=== PATIENT | female | born 1945 | race Caucasian/White ===

== ENCOUNTER 2019-07-03 15:06 | Outpatient (CLI) | payer MEDICARE, SELFPAY ==
--- NOTE | 2019-07-03 15:37 | MM_ITS ---
WS: [id number] LEFT DIGITAL MAMMOGRAPHY WITH CAD CLINICAL INFORMATION: LT FIBROCYSTIC BREAST CHANGES HISTORY: Six-month follow-up COMPARISON: TECHNIQUE: 7 views of the left breast were obtained. FINDINGS: The left breast is composed of heterogeneous fibroglandular density tissue, which can limit the detec tion of small underlying mass lesions. Vascular calcification. Lucent centered calcifications. Stable punctate and clustered calcifications. Persistent asymmetric breast tissue upper outer quadrant left breast. New palpable marker upper outer left breast. No underlying mammographic abnormalities. Patient report s lump x2 months. Ultrasound is pending. ULTRASOUND BREAST LEFT TECHNIQUE: Ultrasound left breast focused area of concern. CLINICAL INFORMATION: LT FIBROCYSTIC BREAST CHANGES COMPARISON: FINDINGS: Ultrasound left breast at the 12:00, 1:00, and 2:00 positions. Patient reports new palpable lump at t he 1:00 position. No evidence of pathologic mass or lesion in the area of palpable concern. No lesion s to target for biopsy of this area. At the 12 and 2:00 position again seen are small subcentimeter cystic lesions which have a benign priya earance. No evidence of pathologic mass or lesion target for biopsy. [facility]. MM/[place] [id number] IMPRESSION: BI-RADS: 2-Benign FOLLOW UP: 1 Year Follow-up Recommend return to annual screening mammography. Additional management of the palpable abnormality should be based on clinical g rounds.
== END 2019-07-03 15:07 | disposition home or self-care (01) ==
PROVIDERS: Family Provider Family Medicine; PCP Family Medicine; Visit Provider Nurse Practitioner Family
DX: N60.12 Diffuse cystic mastopathy of left breast (principal)
CPT/HCPCS: 76642; 77065

== ENCOUNTER → 2019-09-23 10:05 | Outpatient (BNVA) | payer MEDICARE, SELFPAY | PROVIDERS: Family Provider Family Medicine; PCP Family Medicine; Visit Provider Family Medicine | DX: E78.00 Pure hypercholesterolemia, unspecified (principal); E11.9 Type 2 diabetes mellitus without complications; I10 Essential (primary) hypertension; I87.2 Venous insufficiency (chronic) (peripheral); E11.8 Type 2 diabetes mellitus with unspecified complications | CPT/HCPCS: 80053; 80061; 83036; 85025 ==

== ENCOUNTER 2020-01-04 17:51 | Observation (INO) | payer MEDICARE, SELFPAY ==
[2020-01-04] VITALS (7 sets, daily range): BP systolic 167–226; BP diastolic 88–116; PULSE 75–94; RESP 18–20; TEMP 36.8–37; O2SAT 93–98; BMI 37.5
--- NOTE | 2020-01-04 18:04 | XRR_ITS ---
PROCEDURE INFORMATION: Exam: XR Chest, 1 View Exam date and time: 01/04/2020 6:05 PM Age: 74 years old Clinical indication: Other: CVA TECHNIQUE: Imaging protocol: XR of the chest Views: 1 view. COMPARISON: CR Chest 1 [place] [id number] 02/11/2019 6:44 AM FINDINGS: Lungs: Unremarkable. No consolidation. Pleural space: Unremarkable. No pleural effusion. No pneumothorax. Heart/Mediastinum: Unremarkable. No cardiomegaly. Bones/joints: Unremarkable. XR/XR chest 1V portable [id number] IMPRESSION: No acute findings.
--- NOTE | 2020-01-04 18:04 | CTR_ITS ---
PROCEDURE INFORMATION: Exam: CT Head Without Contrast Exam date and time: 01/04/2020 6:20 PM Age: 74 years old Clinical indication: Numbness / parasthesia and speech disturbance; Left; Slurred speech; Additional info: CVA TECHNIQUE: Imaging protocol: Computed tomography of the head without contrast. Radiation optimization: All CT scans at this facility use at least one of these dose optimization techniques: automated exposure control; mA and/or kV adjustment per patient size (includes targeted exams where dose is matched to clinical indication); or iterative reconstruction. COMPARISON: CT head wo con* [id number] 02/08/2019 6:03 AM RADIATION DOSE METRICS: Total DLP (mGy-cm): 763.68 FINDINGS: Brain: There is mild cortical atrophy. There is no intracranial mass, hemorrhage or edema. There is small focal calcification in the mid esther not changed from previous. Ventricles: Normal. No ventriculomegaly. Bones/joints: Unremarkable. No acute fracture. Sinuses: Visualized sinuses are unremarkable. No fluid levels. Mastoid air cells: Visualized mastoid air cells are well aerated. Vasculature: There are atherosclerotic changes in the cavernous carotid arteries on both sides. Soft tissues: Unremarkable. CT/CT head wo con* [id number] IMPRESSION: Mild atrophy. No acute intracranial finding. Radiation Dose CTDIVOL = (mGy): DLP = 763.68 (mGy-cm)
--- NOTE | 2020-01-04 18:05 | ECG_ITS ---
[facility] Test Date: 2020-01-04 Pat Name: Iris Rockwell Department: Room: Gender: Female Rehabilitation Coordinator: : 1945 Requested By: Devin Alfonso Order Number: [id number] Coco MD: John Fields M.D. Measurements Intervals [place] Rate: 76 P: 64 VT: 207 QRS: 64 QRSD: 104 T: 82 QT: 412 QTc: 463 Interpretive Statements SINUS RHYTHM MODERATE ST DEPRESSION [0.05+ mV ST DEPRESSION] Compared to ECG 02/08/2019 05:08:18 ST (T wave) deviation now present Sinus bradycardia no longer present First degree AV block no longer present Prolonged QT interval no longer present Electronically Signed On 01-05-2020 8:04:27 CDT by John Fields M.D. [id number]
--- NOTE | 2020-01-04 18:07 | ED_ITS ---
HPI - Neuro Symptoms/Deficit General: Chief Complaint: Neuro Symptoms/Deficit Stated Complaint: STROKE LIKE SYMPTOMS Time Seen by Provider: 01/04/20 17:58 Source: patient and EMS Mode of arrival: EMS Limitations: no limitations History of Present Illness: HPI Narrative: 74-year-old female who states that last night she started having numbness to her left hand and woke up with more numbness to her left hand since resolved. States that roughly 1 hour ago she started having garbled speech and could not get anything out. She states this resolved about 30 minutes ago. She is continued to have left hand numbness throughout the day. She denies any headache. She denies any difficulty walking. Patient is currently having no focal deficits and I am able to understand her clearly. Associated symptoms: Deny chest pain, nausea or vomiting Review of Systems Const: Denies: fever(s), chills, body aches or change in appetite Eyes: Denies: blurry vision or eye discomfort ENMT: Denies: throat pain or dental pain Card: Denies: chest pain Resp: Denies: dyspnea GI: Denies: abdominal pain, nausea, vomiting or diarrhea : Denies: dysuria Musc: Denies: neck pain or back pain Skin/Breast: Denies: rash Neuro: Reports: weakness in extremities Psych: Denies: depression Hilario/Lymph: Denies: easy bruising All/Imm: Denies: urticaria PFSH ED PFSH: Medical History (Updated 01/04/20 @ 22:15 by Devin Alfonso MD) Chronic kidney disease, stage 3 Depression Diabetes Diabetic neuropathy Diastolic CHF GERD (gastroesophageal reflux disease) Hypercholesteremia Hypertension ANA (obstructive sleep apnea) Venous insufficiency (chronic) (peripheral) Surgical History (Updated 01/04/20 @ 22:14 by Irina Moss MD) 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 History of appendectomy History of bladder suspension procedure History of cataract surgery History of cholecystectomy History of drainage of abscess left vulvar/perineal area History of hernia repair History of surgery on arm left arm, due to extravasation History of total hysterectomy Social History Smoking and tobacco status: never smoked Alcohol intake: never Physical Exam Const: COMMON NORMALS: no acute distress, patient oriented x3 and healthy appearing HENMT: COMMON NORMALS: normocephalic and atraumatic HEAD & SCALP: normocephalic and atraumatic Eye: COMMON NORMALS: Equal, round and reactive pupils present and EOMs intact bilaterally PUPIL: Yes Equal, round and reactive pupils present Neck/C-Spine: COMMON NORMALS: full ROM and supple Chest: COMMONS NORMALS: normal inspection of the chest and normal palpation of entire chest wall Resp: COMMON NORMALS: normal respiratory effort, No retractions, No use of accessory muscles and clear to auscultation bilaterally AUSCULTATION: clear to auscultation bilaterally Cardio: COMMON NORMALS: regular rate, regular rhythm and No murmurs present (Cardio) RATE: regular rate RHYTHM: regular rhythm GI: COMMON NORMALS: Normal to inspection, nondistended, normoactive bowel so unds present, Soft to palpation, non-tender and no masses PALPATION: Yes Soft to palpation Extremity: COMMON NORMALS: normal to inspection and full ROM Neuro: COMMON NORMALS: patient oriented x3, moves all extremities and no focal motor deficits Psych: COMMON NORMALS: mental status grossly normal, Normal thought process present and cooperative THOUGHT PROCESS: Normal thought process present Skin: COMMON NORMALS: no rashes or lesions noted and no wounds GENERAL SKIN EXAM: no rashes or lesions noted Course Vital Signs: Vital signs: Vital Signs Temperature 98.3 F 01/04/20 17:53 Pulse Rate 76 01/04/20 18:33 Respiratory Rate 20 H 01/04/20 18:33 Blood Pressure 226/116 01/04/20 21:25 Pulse Oximetry 97 01/04/20 21:25 MDM - Neuro Symptoms/Deficit MDM Narrative: Medical decision making narrative: Patient presents here with TIA along with hyperglycemia and hypertension. Patient's blood sugar here is improving along with her blood pressure. Her neuro symptoms of completely resolved and she has an NIH of 0. She is not a TPA candidate due to resolved symptoms. Her initial troponin was elevated but repeat had a decrease. She had no chest pain here. I spoke to hospitalist will admit for her high blood press ure along with TIA and hyperglycemia. Will admit her to the cardiac stepdown unit. Lab Data: Labs: Lab Results 01/04/20 01/04/20 01/04/20 Range/Units 18:06 18:06 18:06 WBC 9.9 (4.0-10.0) 10^3/ uL RBC 4.27 (4.1-5.3) 10^6/u L Hgb 11.7 (11.5-15.3) g/dL Hct 37.3 (37.0-47.0) % MCV 87.4 (81-99) fL MCH 27.4 L (28.0-34.0) pg MCHC 31.4 (30.0-36.0) g/dL RDW 14.6 (12.1-15.1) % Plt Count 379 (130-400) 10^3/c mm MPV 11.7 H (7.4-10.4) fL Neut % (Auto) 59.8 % Lymph % (Auto) 26.3 % [place] % (Auto) 8.7 % Eos % (Auto) 3.2 % Baso % (Auto) 0.9 % Neut # (Auto) 5.92 (1.8-7.7) 10^3/u L Lymph # (Auto) 2.6 (0.8-4.8) 10^3/u L [place] # (Auto) 0.9 (0.2-0.9) 10^3/u L Eos # (Auto) 0.3 (0.0-0.8) 10^3/u L Baso # (Auto) 0.1 (0.0-0.1) 10^3/u L Nucleated RBC % (a uto) 0 % Nucleated RBCs # 0.0 /100WBC PT 12.70 (10.5-13.3) SECO NDS INR 0.93 (0.8-1.2) Sodium 130 L (136-145) mmol/L Potassium 5.0 (3.5-5.1) mmol/L Chloride 95 L (98-107) mmol/L Carbon Dioxide 26 (22-29) mmol/L Anion Gap 14.0 (5-19) BUN 40 H (8-23) mg/dL Creatinine 2.0 H (0.5-0.9) mg/dL Glucose 642 H* (65-115) mg/dL POC Glucose (70-110) mg/dL Calculated Osmolal ity 298 H (285-295) mOsm/k g Calcium 8.9 (8.5-10.5) mg/dL Total Bilirubin 0.2 (0.15-1.2) mg/dL AST 14 (0-32) U/L ALT 17 (0-33) U/L Alkaline Phosphata se 103 (35-105) IU/L Troponin T Baselin e (0-10) ng/L Troponin T 120 Min [place] (0-10) ng/L Delta Troponin T (0-10) ABS# Total Protein 5.9 L (6.6-8.7) g/dL Albumin 3.3 L (3.5-5.2) g/dL Globulin 2.6 (1.3-4.6) g/dL Urine Color (Yellow) Urine Appearance (CLEAR) Urine pH (5-7) Ur Specific Gravit y (1.005-1.030) Urine Protein (Negative) Urine Glucose (UA) (Normal) Urine Ketones (Negative) Urine Blood (Negative) Urine Nitrate (Negative) Urine Bilirubin (NEGATIVE) Prot Sulfosalicyli c Acd (Negative) Urine Urobilinogen (Negative) mg/dL Ur Leukocyte [place] (Negative) Urine RBC (0-2) /hpf Urine WBC (0-5) /hpf Ur Squamous Epith Cells (0-5) Amorphous Sediment Urine Bacteria (NONE) Urine Mucus 01/04/20 01/04/20 01/04/20 Range/Units 18:06 20:00 20:05 WBC (4.0-10.0) 10^3/ uL RBC (4.1-5.3) 10^6/u L Hgb (11.5-15.3) g/dL Hct (37.0-47.0) % MCV (81-99) fL MCH (28.0-34.0) pg MCHC (30.0-36.0) g/dL RDW (12.1-15.1) % Plt Count (130-400) 10^3/c mm MPV (7.4-10.4) fL Neut % (Auto) % Lymph % (Auto) % [place] % (Auto) % Eos % (Auto) % Baso % (Auto) % Neut # (Auto) (1.8-7.7) 10^3/u L Lymph # (Auto) (0.8-4.8) 10^3/u L [place] # (Auto) (0.2-0.9) 10^3/u L Eos # (Auto) (0.0-0.8) 10^3/u L Baso # (Auto) (0.0-0.1) 10^3/u L Nucleated RBC % (a uto) % Nucleated RBCs # /100WBC PT (10.5-13.3) SECO NDS INR (0.8-1.2) Sodium (136-145) mmol/L Potassium (3.5-5.1) mmol/L Chloride (98-107) mmol/L Carbon Dioxide (22-29) mmol/L Anion Gap (5-19) BUN (8-23) mg/dL Creatinine (0.5-0.9) mg/dL Glucose (65-115) mg/dL POC Glucose (70-110) mg/dL Calculated Osmolal ity (285-295) mOsm/k g Calcium (8.5-10.5) mg/dL Total Bilirubin (0.15-1.2) mg/dL AST (0-32) U/L ALT (0-33) U/L Alkaline Phosphata se (35-105) IU/L Troponin T Baselin e 110 H* (0-10) ng/L Troponin T 120 Min [place] 103.6 H (0-10) ng/L Delta Troponin T -6.4 L (0-10) ABS# Total Protein (6.6-8.7) g/dL Albumin (3.5-5.2) g/dL Globulin (1.3-4.6) g/dL Urine Color Straw (Yellow) Urine Appearance Clear (CLEAR) Urine pH 8 H (5-7) Ur Specific Gravit y 1.005 (1.005-1.030) Urine Protein 1+ H (Negative) Urine Glucose (UA) 4+ H (Normal) Urine Ketones Negative (Negative) Urine Blood 2+ H (Negative) Urine Nitrate Negative (Negative) Urine Bilirubin Neg (NEGATIVE) Prot Sulfosalicyli c Acd Positive (Negative) Urine Urobilinogen Norm (Negative) mg/dL Ur Leukocyte [place] Negative (Negative) Urine RBC 0-4 H (0-2) /hpf Urine WBC 5-10 H (0-5) /hpf Ur Squamous Epith Cells 0-4 H (0-5) Amorphous Sediment Not Reportable Urine Bacteria Trace (NONE) Urine Mucus Trace 01/04/20 Range/Units 20:31 WBC (4.0-10.0) 10^3/ uL RBC (4.1-5.3) 10^6/u L Hgb (11.5-15.3) g/dL Hct (37.0-47.0) % MCV (81-99) fL MCH (28.0-34.0) pg MCHC (30.0-36.0) g/dL RDW (12.1-15.1) % Plt Count (130-400) 10^3/c mm MPV (7.4-10.4) fL Neut % (Auto) % Lymph % (Auto) % [place] % (Auto) % Eos % (Auto) % Baso % (Auto) % Neut # (Auto) (1.8-7.7) 10^3/u L Lymph # (Auto) (0.8-4.8) 10^3/u L [place] # (Auto) (0.2-0.9) 10^3/u L Eos # (Auto) (0.0-0.8) 10^3/u L Baso # (Auto) (0.0-0.1) 10^3/u L Nucleated RBC % (a uto) % Nucleated RBCs # /100WBC PT (10.5-13.3) SECO NDS INR (0.8-1.2) Sodium (136-145) mmol/L Potassium (3.5-5.1) mmol/L Chloride (98-107) mmol/L Carbon Dioxide (22-29) mmol/L Anion Gap (5-19) BUN (8-23) mg/dL Creatinine (0.5-0.9) mg/dL Glucose (65-115) mg/dL POC Glucose 485 (70-110) mg/dL Calculated Osmolal ity (285-295) mOsm/k g Calcium (8.5-10.5) mg/dL Total Bilirubin (0.15-1.2) mg/dL AST (0-32) U/L ALT (0-33) U/L Alkaline Phosphata se (35-105) IU/L Troponin T Baselin e (0-10) ng/L Troponin T 120 Min [place] (0-10) ng/L Delta Troponin T (0-10) ABS# Total Protein (6.6-8.7) g/dL Albumin (3.5-5.2) g/dL Globulin (1.3-4.6) g/dL Urine Color (Yellow) Urine Appearance (CLEAR) Urine pH (5-7) Ur Specific Gravit y (1.005-1.030) Urine Protein (Negative) Urine Glucose (UA) (Normal) Urine Ketones (Negative) Urine Blood (Negative) Urine Nitrate (Negative) Urine Bilirubin (NEGATIVE) Prot Sulfosalicyli c Acd (Negative) Urine Urobilinogen (Negative) mg/dL Ur Leukocyte [place] (Negative) Urine RBC (0-2) /hpf Urine WBC (0-5) /hpf Ur Squamous Epith Cells (0-5) Amorphous Sediment Urine Bacteria (NONE) Urine Mucus Imaging Data^: CXR: Attestation: I personally reviewed and interpreted this imaging study as follows: Radiologist's impression: [place] [address] XRay Report Signed Patient: Iris Rockwell Unit #: [id number] : 1945 Age/Sex: 74 / F ADM Date: 01/04/20 Loc: ER Room/Bed: Attending Dr: Ordering Provider/Ordering MD: Devin Alfonso MD Date of Service: 01/04/20 Procedure(s): XR chest 1V portable [id number] Accession Number(s): [id number] Report Number: [id number] PROCEDURE INFORMATION: Exam: XR Chest, 1 View Exam date and time: 01/04/2020 6:05 PM Age: 74 years old Clinical indication: Other: CVA TECHNIQUE: Imaging protocol: XR of the chest Views: 1 view. COMPARISON: CR Chest 1 [place] [id number] 02/11/2019 6:44 AM FINDINGS: Lungs: Unremarkable. No consolidation. Pleural space: Unremarkable. No pleural effusion. No pneumothorax. Heart/Mediastinum: Unremarkable. No cardiomegaly. Bones/joints: Unremarkable. XR/XR chest 1V portable [id number] IMPRESSION: No acute findings. CT Head: Attestation: I personally reviewed and interpreted this imaging study as follows: Radiologist's impression: [facility] [address] [place] [address] CT Scan Report Signed Patient: Iris Rockwell Unit #: [id number] : 1945 Age/Sex: 74 / F ADM Date: 01/04/20 Loc: ER Room/Bed: Attending Dr: Ordering Provider/Ordering MD: Devin Alfonso MD Date of Service: 01/04/20 Procedure(s): CT head wo con* [id number] Accession Number(s): [id number] Report Number: [id number] PROCEDURE INFORMATION: Exam: CT Head Without Contrast Exam date and time: 01/04/2020 6:20 PM Age: 74 years old Clinical indication: Numbness / parasthesia and speech disturbance; Left; Slurred speech; Additional info: CVA TECHNIQUE: Imaging protocol: Computed tomography of the head without contrast. Radiation optimization: All CT scans at this facility use at least one of these dose optimization techniques: automated exposure control; mA and/or kV adjustment per patient size (includes targeted exams where dose is matched to clinical indication); or iterative reconstruction. COMPARISON: CT head wo con* [id number] 02/08/2019 6:03 AM RADIATION DOSE METRICS: Total DLP (mGy-cm): 763.68 FINDINGS: Brain: There is mild cortical atrophy. There is no intracranial mass, hemorrhage or edema. There is small focal calcification in the mid esther not changed from previous. Ventricles: Normal. No ventriculomegaly. Bones/joints: Unremarkable. No acute fracture. Sinuses: Visualized sinuses are unremarkable. No fluid levels. Mastoid air cells: Visualized mastoid air cells are well aerated. Vasculature: There are atherosclerotic changes in the cavernous carotid arteries on both sides. Soft tissues: Unremarkable. CT/CT head wo con* [id number] IMPRESSION: Mild atrophy. No acute intracranial finding. EKG Data^: EKG 1: Attestation: I personally reviewed and interpreted this EKG as follows: EKG interpretation date: 01/04/20 EKG interpretation time: 18:29 Interpretation: nsr hr [address] elevation qrs 104 qtc 442 Discharge Plan Discharge Patient Disposition: Admitted As Inpatient Clinical Impression: Hypertension, Transient cerebral ischemia, Acute hyperglycemia Condition: Stable Prescriptions: No Action aspirin 81 mg tablet,chewable 81 mg PO DAILY RF: 0 nitroglycerin 0.4 mg tablet, sublingual 0.4 mg SUBLINGUAL Q5M PRN (Reason: chest pains) RF: 0 sucralfate [Carafate] 1 gram tablet 1 gm PO QID RF: 0 lisinopril 20 mg tablet 20 mg PO DAILY RF: 0 sertraline 50 mg tablet 50 mg PO Q24H 30 Days Qty: 30 RF: 5 insulin lispro [Humalog KwikPen Insulin] 100 unit/mL insulin pen 5 unit SUBCUT TID 30 Days Qty: 15 RF: 11 carvedilol 25 mg tablet 25 mg PO BID 90 Days Qty: 180 RF: 3 Novolog Flexpen U-100 Insulin 100 unit/mL (3 mL) insulin pen See Rx Instructions .ROUTE .COMPLEX RF: 0 Levemir FlexTouch U-100 Insuln 100 unit/mL (3 mL) insulin pen 20 unit SUBCUT BEDTIME RF: 0 Referrals: Osito Owens MD [Primary Care Provider] - Coding Level of Care Code ED Fabric Normalizer for Chg Fwd Exam Comprehensive
[2020-01-04] MEDS: sodium chloride 0.9% 500 ML IV (18:30)
[2020-01-04 18:32] LABS: Basophils # 0.1 10^3/uL (0.0-0.1); Basophils % 0.9 %; Eosinophils # 0.3 10^3/uL (0.0-0.8); Eosinophils % 3.2 %; Hematocrit 37.3 % (37.0-47.0); Hemoglobin 11.7 g/dL (11.5-15.3); Lymphocytes # 2.6 10^3/uL (0.8-4.8); Lymphocytes % 26.3 %; Mean Corpuscular HGB Conc 31.4 g/dL (30.0-36.0); Mean Corpuscular Hemoglobin 27.4 pg (28.0-34.0); Mean Corpuscular Volume 87.4 fL (81-99); Mean Platelet Volume 11.7 fL (7.4-10.4); Monocytes # 0.9 10^3/uL (0.2-0.9); Monocytes % 8.7 %; Neutrophils # 5.92 10^3/uL (1.8-7.7); Neutrophils % 59.8 %; Nucleated Red Blood Cells % 0 %; Platelet Count 379 10^3/cmm (130-400); Red Blood Count 4.27 10^6/uL (4.1-5.3); Red Cell Distribution Width 14.6 % (12.1-15.1); White Blood Count 9.9 10^3/uL (4.0-10.0)
[2020-01-04 18:43] LABS: INR 0.93 (0.8-1.2)
[2020-01-04 18:49] LABS: Alanine Aminotransferase 17 U/L (0-33); Albumin Level 3.3 g/dL (3.5-5.2); Alkaline Phosphatase 103 IU/L (35-105); Aspartate Amino Transferase 14 U/L (0-32); Blood Urea Nitrogen 40 mg/dL (8-23); Calcium 8.9 mg/dL (8.5-10.5); Carbon Dioxide 26 mmol/L (22-29); Chloride 95 mmol/L (98-107); Globulin 2.6 g/dL (1.3-4.6); Osmolality Calculated 298 mOsm/kg (285-295); Sodium 130 mmol/L (136-145); Total Bilirubin 0.2 mg/dL (0.15-1.2); Total Protein 5.9 g/dL (6.6-8.7)
[2020-01-04 18:58] LABS: Troponin(5th) Baseline 110 ng/L (0-10)
[2020-01-04 18:59] LABS: Glucose 642 mg/dL (65-115)
[2020-01-04] MEDS: insulin regular-human 100 units/1 mL 10 UNIT IVP (19:10)
[2020-01-04] MEDS: ondansetron 2 mg/ML SDV 2 mL 4 MG IVP ×2 (19:30→23:32)
[2020-01-04] MEDS: nitroglycerin 0.4 mg sublingual Tablet SUBLINGUAL (19:45)
--- NOTE | 2020-01-04 20:05 | ECG_ITS ---
[facility] Test Date: 2020-01-04 Pat Name: Iris Rockwell Department: Room: Gender: Female Meter Reader: : 1945 Requested By: Devin Alfonso Order Number: [id number] Coco MD: John Fields M.D. Measurements Intervals [place] Rate: 80 P: 53 VA: 209 QRS: 17 QRSD: 98 T: 62 QT: 368 QTc: 426 Interpretive Statements SINUS RHYTHM POSSIBLE LEFT ATRIAL ENLARGEMENT [-0.1mV P WAVE IN V1/V2] NONSPECIFIC ST & T-WAVE ABNORMALITY Compared to ECG 01/04/2020 18:29:27 T-wave abnormality now present ST (T wave) deviation no longer present Electronically Signed On 01-05-2020 8:07:03 CDT by John Fields M.D. [id number]
[2020-01-04 20:36] LABS: Glucose Point of Care 485 mg/dL (70-110)
[2020-01-04 20:39] LABS: Troponin 5 2HR 103.6 ng/L (0-10); Troponin 5 2HR Delta -6.4 ABS# (0-10)
[2020-01-04 20:43] LABS: Glucose Urine UA 4+ (Normal); Protein Urine 1+ (Negative); Specific Gravity, Urine 1.005 (1.005-1.030); Urine Appearance Clear (CLEAR); Urine Color Straw (Yellow); pH Urine 8 (5-7)
[2020-01-04 20:44] LABS: Add Urine Microscopic? YES; Bilirubin Urine Neg (NEGATIVE); Blood Urine 2+ (Negative); Ketones Urine Negative (Negative); Leukocyte Esterase Urine Negative (Negative); Nitrate Urine Negative (Negative); Sulfosalicylic Acid Urine Positive (Negative); Urobilinogen Urine Norm (Negative)
[2020-01-04 20:45] LABS: Bacteria Urine TRACE; RBC Urine 0-4 /hpf (0-2); Squamous Epithelial Cell Urine 0-4 (0-5)
[2020-01-04 20:46] LABS: Add Urine Culture? No; Mucus Urine TRACE
[2020-01-04] MEDS: hyDRALAzine 20 mg/mL INJ 1 mL 10 MG IVP (21:28)
--- NOTE | 2020-01-04 21:36 | PM.HP ---
Providers/Chief Complaint Admitting Physician: Irina Moss MD Primary Care Provider: Osito Owens MD Chief Complaint: STROKE LIKE SYMPTOMS History of Present Illness Iris Rockwell is a 74 year old female who presented to the emergency room with multiple complaints. For the past 2 days she is had left arm and left hand seizures or spasms. She is also had an achy pain in her left arm. She rates it at a 5 out of 10. It is been constant. Nothing really makes it better or worse. She has had intermittent episodes of what she describes as garbled speech. Denies any vision changes, swallowing difficulty or lower extremity symptoms. No gait abnormalities. For the last several days she has had 3+ episodes of vomiting a day. Vomitus is food usually sometimes just clear liquid. No blood has been noted. She took some K[place] without much relief. She denies excessive heat exposure. She has not had any fevers. She is a known diabetic and reports that she has been too sick to check my blood sugar . Denies abdominal pain, diarrhea or constipation. Denies general aches and pains. No reports of chest pain or shortness of breath. No edema. She says she feels miserable and finally decided to come in for evaluation. She was quite hypertensive upon arrival with blood pressures as high as 220s over 100s. Twelve-lead EKG showed sinus rhythm at 76 bpm with some nonspecific ST depression. Initial troponin was found to be elevated at 110. She received some nitroglycerin and since then has developed a headache. She is also developed some chills while in the emergency room. Blood sugar was found to be greater than 600. She has not been taking her insulin. Admits that she is not been taking some of her other medicines as well because of her GI symptoms. She was given some insulin in the emergency room along with some IV fluids. She also received some morphine. At no time has she had any chest pain or dyspnea on exertion.She does not have a history of known coronary artery disease but does have risk factors including diabetes, hypertension and hyperlipidemia. Additionally she was diagnosed with Takotsubo cardiomyopathy earlier this year. She was hospitalized at [facility] for about 8 days. This occurred after the of her in May. She has struggled to adjust to life without him by her own admission. I do not have any records from that hospital stay. Last echocardiogram available here is from 2018 and showed left ventricular ejection fraction at 55% with grade 1/4 diastolic dysfunction. Around the same time she had stress testing. EKG portion of the test was unremarkable. Perfusion studies showed small to moderate sized perfusion abnormality of the mid to apical anterior and anterior lateral plascencia. This could represent attenuation artifact however small to moderate ischemia in the LAD/left circumflex territory cannot be completely ruled out. No regional wall motion abnormalities were identified. Second troponin came back at 103 with delta troponin of -6. Review of old records shows that she had some elevation in troponins about a year ago although it was a different type of troponin so values cannot be compared. With her symptoms and identified abnormalities, she is being admitted for further evaluation and treatment. Review of Systems Const: Reports: chills (Only in the ED), change in appetite, fatigue, malaise and change in sleep pattern; Denies: fever(s), body aches, change in weight, night sweats or diaphoresis Eyes: Denies: change in vision ENMT: Denies: throat pain, dry mouth or nasal congestion Card: Denies: chest pain, palpitations, edema, swelling of feet/ankles, lightheadedness, dyspnea on exertion or orthopnea Resp: Denies: dyspnea, productive cough, non-productive cough, wheezing, pain on inspiration or chest congestion GI: Reports: nausea, vomiting and heartburn; Denies: abdominal pain, hematemesis, diarrhea, constipation, bloating, GI cramping, hematochezia or melena : Denies: flank pain, difficulty voiding or urinary frequency Musc: Reports: extremity pain (Only in the left arm and hand); Denies: extremity swelling, joint swelling, joint redness or joint warmth Skin/Breast: Denies: rash, pruritus or sores Neuro: Reports: numbness in extremities (Left arm), weakness in extremities (Left arm), sensory changes (Left arm), lack of coordination (Left arm), Slurred speech present (Transiently) and involuntary movements (Left arm); Denies: headache(s), frequent falls or dizziness Psych: Reports: depression (Since her in May of last year); Denies: anxiety or hopelessness Hilario/Lymph: Denies: easy bruising or easy bleeding Medications/Allergies Home Medications Medication Instructions Recorded Confirmed Last Taken Type aspirin 81 mg chewable tablet 81 mg PO DAILY tab 07/08/19 01/04/20 Unknown History lisinopril 20 mg tablet 20 mg PO DAILY tab 07/08/19 01/04/20 01/03/20 History nitroglycerin 0.4 mg sublingual 0.4 mg SUBLINGUAL Q5M PRN 07/08/19 01/04/20 Unknown History tablet sucralfate 1 gram tablet 1 gm PO QID tab 07/08/19 01/04/20 01/03/20 History sertraline 50 mg tablet 50 mg PO Q24H 30 Days #30 tab 07/12/19 01/04/20 01/03/20 Rx carvedilol 25 mg tablet 25 mg PO BID 90 Days #180 tab 10/07/19 01/04/20 01/03/20 Rx insulin lispro 100 unit/mL 5 unit SUBCUT TID 30 Days #15 ml 10/07/19 01/04/20 01/03/20 Rx subcutaneous pen insulin aspart U-100 [Novolog See Rx Instructions .ROUTE .COMPLEX 01/04/20 01/04/20 01/03/20 History Flexpen U-100 Insulin] insulin detemir U-100 [Levemir 20 unit SUBCUT BEDTIME 01/04/20 01/04/20 01/03/20 History FlexTouch U-100 Insuln] Allergies Allergy/AdvReac Type Severity Reaction Status Date / Time morphine Allergy unknown Verified 01/04/20 18:50 zolpidem Allergy na Verified 01/04/20 18:50 PFSH Acute PFSH: Medical History (Updated 01/05/20 @ 06:16 by Irina Moss MD) Chronic kidney disease, stage 3 Depression Diabetes Diabetic neuropathy Diastolic CHF January 2018 echocardiogram with ejection fraction of 55% with grade 1/4 diastolic dysfunction noted GERD (gastroesophageal reflux disease) Hypercholesteremia Hypertension ANA (obstructive sleep apnea) does not wear cpap by choice Takotsubo cardiomyopathy Jun 2019, after of Venous insufficiency (chronic) (peripheral) Surgical History (Updated 01/04/20 @ 22:14 by Irina Moss MD) 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 History of appendectomy History of bladder suspension procedure History of cataract surgery History of cholecystectomy History of drainage of abscess left vulvar/perineal area History of hernia repair History of surgery on arm left arm, due to extravasation History of total hysterectomy Family History (Updated 01/04/20 @ 22:19 by Irina Moss MD) Father CAD (coronary artery disease) by report, she never knew him Social History (Updated 01/04/20 @ 22:23 by Irina Moss MD) Smoking and tobacco status: never smoked Alcohol intake: never Substance/Drug Use: never Caregiver/support person: No Household members: none Marital status: / Vitals/I&O/Wt Last Vital Signs Temp 98.3 F 01/04/20 17:53 Pulse 76 01/04/20 18:33 Resp 20 H 01/04/20 18:33 BP 167/88 01/04/20 18:33 Pulse Ox 96 01/04/20 18:33 Weight last 48 hrs Weight 102.512 kg Physical Exam Const: OTHER: Alert, oriented x3, cooperative, chronically mildly acutely ill-appearing HENMT: OTHER: Normocephalic atraumatic, moist mucus membranes, no nasal drainage Eye: OTHER: Pupils equally round and reactive to light, extraocular movements intact Neck/C-Spine: OTHER: Supple, large, no lymphadenopathy noted Resp: OTHER: Clear to auscultation bilaterally, no rales, rhonchi or wheezes noted, no accessory muscle use noted, no tachypnea noted Cardio: OTHER: Regular rate and rhythm, no murmurs, slightly distant heart sounds GI: OTHER: Abdomen soft, nontender, nondistended with positive bowel sounds : OTHER: Normal external genitalia Extremity: NARRATIVE EXTREMITY EXAM: No pitting edema, no acute synovitis noted, third and fourth toes of the left foot are missing Neuro: OTHER: Face symmetric, speech clear, uvula midline, handgrip is equal, strength equal at both feet, no abnormal movements noted Psych: OTHER: Normal affect Skin: OTHER: Skin without any lesions or rashes noted Data : 01/05/20 03:15 01/05/20 03:15 Other Labs: Short CBC 01/04/20 01/04/20 01/04/20 Range/Units 18:06 18:06 18:06 WBC 9.9 (4.0-10.0) 10^3/uL Hgb 11.7 (11.5-15.3) g/dL Hct 37.3 (37.0-47.0) % Plt Count 379 (130-400) 10^3/cmm Creatinine 2.0 H (0.5-0.9) mg/dL Troponin T Baseline 110 H* (0-10) ng/L Troponin T 120 Minute (0-10) ng/L Delta Troponin T (0-10) ABS# 01/04/20 Range/Units 20:05 Troponin T 120 Minute 103.6 H (0-10) ng/L Delta Troponin T -6.4 L (0-10) ABS# BMP 01/04/20 18:06 Sodium 130 L Potassium 5.0 Chloride 95 L Carbon Dioxide 26 BUN 40 H Creatinine 2.0 H Glucose 642 H* Calcium 8.9 Liver Function 01/04/20 Range/Units 18:06 Total Bilirubin 0.2 (0.15-1.2) mg/dL AST 14 (0-32) U/L ALT 17 (0-33) U/L Alkaline Phosphatase 103 (35-105) IU/L Albumin 3.3 L (3.5-5.2) g/dL Urine 01/04/20 Range/Units 20:00 Urine Color Straw (Yellow) Urine Appearance Clear (CLEAR) Urine pH 8 H (5-7) Ur Specific [place] 1.005 (1.005-1.030) Urine Protein 1+ H (Negative) Urine Glucose (UA) 4+ H (Normal) A&P Assessment and plan (1) Vomiting: Mesh suspicion is that this is due to her currently significantly uncontrolled diabetes but could also be due to cardiovascular process, reflux, gastroenteritis or other infection, among others. She has not been taking her usual medications Status: Acute Qualifiers: Vomiting type: unspecified Vomiting Intractability: intractable Nausea presence: with nausea Qualified Code(s): R11.2 - Nausea with vomiting, unspecified (2) Left arm pain: And paresthesias Status: Acute (3) Elevated troponin: Without increasing delta, EKG with nonspecific changes. She may have a chronic elevation since her episode of Takotsubo earlier this year. Hypertensive urgency could also be behind this but cannot rule out a recent subacute WI with downward trend of troponin presently. Status: Acute (4) Acute hyperglycemia: Related to noncompliance with insulin therapy at least the last few days Status: Acute (5) Diabetes: Suspect poorly controlled chronically Status: Chronic Qualifiers: Diabetes mellitus type: type 2 Diabetes mellitus halfway insulin use: with exterminator termite use Diabetes mellitus complication status: with neurologic complications Diabetes mellitus complication detail: with polyneuropathy Qualified Code(s): E11.42 - Type 2 diabetes mellitus with diabetic polyneuropathy; Z79.4 - longterm (current) use of insulin (6) Hypertension: With hypertensive urgency on arrival, suspect in part due to not taking her medications few days Status: Chronic Qualifiers: Hypertension type: unspecified Qualified Code(s): I10 - Essential (primary) hypertension (7) Hypercholesteremia: Not on a statin Status: Chronic (8) Takotsubo cardiomyopathy: In June 2019 after the of her , treated at [facility] Status: Chronic (9) Diastolic CHF: With ejection fraction 55% on last echocardiogram in 2017 Status: Chronic Qualifiers: Heart failure chronicity: chronic Qualified Code(s): I50.32 - Chronic diastolic (congestive) heart failure (10) Acute kidney injury: Versus progressive kidney disease Status: Acute (11) Chronic kidney disease, stage 3: Creatinine August of this year was 1.7 and back in January it was around 1.5 Status: Chronic (12) ANA (obstructive sleep apnea): Not on CPAP by choice Status: Chronic (13) GERD (gastroesophageal reflux disease): Chronically on Carafate Status: Chronic Qualifiers: Esophagitis presence: esophagitis presence not specified Qualified Code(s): K21.9 - Gastro-esophageal reflux disease without esophagitis Additional A&P Information Inpatient admission Continue serial cardiac enzymes Echocardiogram in the morning Aspirin, statin, beta-blockade For now will keep her on subcutaneous heparin I have held her home lisinopril secondary to acute kidney injury Telemetry monitoring Request records from [facility], patient describes having extensive cardiac work-up while she was there which could be helpful to determining clinical course now Long and short acting insulin, expect sugars will improve since she has not been taking insulin lately Check hemoglobin A1c Check lipid panel Check TSH Anti-emetics as needed Continue home Carafate Continue home Zoloft Monitor need for CPAP with sleep although I do not know that she will wear it Monitor renal function Supportive care otherwise Heparin subcu will provide DVT prophylaxis She lives alone and depending on clinical course consideration may need to be given to home health care, and less likely placement Full code Attestations Medical Necessity Statement*: Anticipated stay greater than 2 midnights in this lady who has multiple complaints and identified abnormalities on work-up done in the emergency room. Plans are as indicated. Coding Level of Care Code Acute Block Sorter for Chg Fwd Diagnoses Vomiting R11.2 Vomiting type: unspecified Vomiting Intractability: intractable Nausea presence: with nausea Left arm pain M79.602 Elevated troponin R79.89 Acute hyperglycemia R73.9 Diabetes E11.42; Z79.4 Diabetes mellitus type: type 2 Diabetes mellitus exterminator termite insulin use: with halfway use Diabetes mellitus complication status: with neurologic complications Diabetes mellitus complication detail: with polyneuropathy Hypertension I10 Hypertension type: unspecified Hypercholesteremia E78.00 Takotsubo cardiomyopathy I51.81 Diastolic CHF I50.32 Heart failure chronicity: chronic Acute kidney injury N17.9 Chronic kidney disease, stage 3 N18.3 ANA (obstructive sleep apnea) G47.33 GERD (gastroesophageal reflux disease) K21.9 Esophagitis presence: esophagitis presence not specified
[2020-01-04 23:00] LABS: Glucose Point of Care 469 mg/dL (70-110)
--- NOTE | 2020-01-04 23:06 | PC.NURSE ---
vo from DR Martinez, insulin to be adm within 15 of floor admit since it is on her floor admit orders
[2020-01-04] MEDS: nitroglycerin 1 gm/inch oint Pkt 1 INCH TOPICAL (23:29)
[2020-01-04] MEDS: heparin 5,000 unit/mL INJ 1 mL 5000 UNIT SUBCUT (23:30)
--- NOTE | 2020-01-04 23:41 | PC.NURSE ---
PT ARRIVED TO [facility] VIA WHEELCHAIR. PT BS 455. DR MOE WANTED MEDS GIVEN UPON ARRIVAL TO FLOOR. MEDS WERE GIVEN FIRST THING. PT HAS SOME N/V. GLASS BULB SILVERER NURSE GAVE PRN ZOFRAN. PT IS ALERT AND ORIENTATED X4. BP 210/110 HR 87 RR 20 SPO2 96. WILL CONTINUE TO MONITOR.
[2020-01-04 23:42] LABS: Glucose Point of Care 455 mg/dL (70-110)
[2020-01-05] VITALS (8 sets, daily range): BP systolic 106–174; BP diastolic 58–95; PULSE 64–78; RESP 14–24; TEMP 36.7–37.1; O2SAT 90–98; BMI 38.5
--- NOTE | 2020-01-05 | PC.NURSE ---
Patient states she takes lyrica for her neuropathy but was not sure of her dose or how many times a day. Will pass along to dayshift regarding patients medication concerns.
[2020-01-05 00:55] LABS: Troponin 5 6HR 101.6 ng/L (0-10); Troponin 5 6HR Delta -8.4 ng/L (0-12)
[2020-01-05 03:42] LABS: Basophils # 0.1 10^3/uL (0.0-0.1); Basophils % 0.9 %; Eosinophils # 0.3 10^3/uL (0.0-0.8); Eosinophils % 2.5 %; Hematocrit 38.4 % (37.0-47.0); Hemoglobin 12.1 g/dL (11.5-15.3); Lymphocytes # 3.2 10^3/uL (0.8-4.8); Lymphocytes % 27.2 %; Mean Corpuscular HGB Conc 31.5 g/dL (30.0-36.0); Mean Corpuscular Hemoglobin 27.5 pg (28.0-34.0); Mean Corpuscular Volume 87.3 fL (81-99); Mean Platelet Volume 11.8 fL (7.4-10.4); Monocytes % 8.6 %; Neutrophils # 6.98 10^3/uL (1.8-7.7); Neutrophils % 59.8 %; Nucleated Red Blood Cells % 0 %; Platelet Count 388 10^3/cmm (130-400); Red Cell Distribution Width 14.5 % (12.1-15.1); White Blood Count 11.7 10^3/uL (4.0-10.0)
[2020-01-05 04:06] LABS: Anion Gap 12.8 (5-19); Blood Urea Nitrogen 37 mg/dL (8-23); Calcium 9.1 mg/dL (8.5-10.5); Carbon Dioxide 28 mmol/L (22-29); Chloride 100 mmol/L (98-107); Glucose 369 mg/dL (65-115); Magnesium 1.9 mg/dL (1.7-2.3); Osmolality Calculated 295 mOsm/kg (285-295); Phosphorus 3.4 mg/dL (2.5-4.5); Potassium 4.8 mmol/L (3.5-5.1); Sodium 136 mmol/L (136-145)
[2020-01-05 04:08] LABS: Estmated Average Glucose 335; Hemoglobin A1C 13.3 % (4.0-6.0)
[2020-01-05 04:11] LABS: Chol HDL Ratio 6.18 mg/dL (0.0-4.40); Cholesterol 315 mg/dL (0-200); HDL Cholesterol 51 mg/dL (60-100); LDL Cholesterol Calculated 226 mg/dL (50-129); LDL HDL Ratio 4.43 RATIO (0.00-3.22); Triglycerides 192 mg/dL (0-150)
--- NOTE | 2020-01-05 05:58 | PC.NURSE ---
End of shift: Patient has rested well. Patient has remained alert and oriented. Patient has had no complaints of tingling or pain. Patient Blood pressure is trending down at last check. Call light is within reach bed in low postion and side rails up x2. Will continue to montior.
--- NOTE | 2020-01-05 06:01 | USR_ITS ---
Arterial ultrasound of the extracerebral carotid and vertebral arteries Clinical indication: Numbness / parasthesia and speech disturbance; Left; Additional info: TIA symptoms lue, speech Technique: Real-time ultrasound with chaudhary scale, duplex Doppler, and color flow imaging was performed to evaluate the extracerebral carotid and vertebral arteries. No prior vascular imaging studies are available for correlation at the time of dictation. Findings: Moderate echogenic plaque formation is identified within the visualized carotid arteries. There is normal antegrade flow within the vertebral arteries bilaterally. The peak systolic velocity measurements within the right and left internal carotid arteries are 113 and one hundred thirteen cm per second respectively. The right systolic velocity ratio is 2.59, while the left systolic velocity ratio is 1.49. When correlating with NASCET index criteria, no hemodynamically significant stenosis is present. US/CV carotid duplex BI* [id number] Impression: 1. Moderate echogenic plaque formation within the carotid arteries, without hemodynamically significant ICA stensosis. 2. Normal antegradew flow within the vertebral arteries.
[2020-01-05] MEDS: atorvastatin 40 mg Tablet PO ×2 (06:10→21:11)
[2020-01-05] MEDS: nitroglycerin 1 gm/inch oint Pkt 1 INCH TOPICAL (06:11)
[2020-01-05] MEDS: heparin 5,000 unit/mL INJ 1 mL 5000 UNIT SUBCUT ×3 (06:11→23:09)
[2020-01-05 06:40] LABS: Glucose Point of Care 271 mg/dL (70-110)
[2020-01-05 06:53] LABS: CKMB 4.5 ng/mL (0-5.34); Creatine Phosphokinase 99 U/L (26-192)
--- NOTE | 2020-01-05 07:48 | P.PN_ITS ---
Subjective Subjective: Interval history: History and physical reviewed. Iris reports she feels much better than yesterday. She has no left arm pain, shoulder pain, nausea or vomiting. She feels much better with her blood pressure lower and her blood sugar lower. She reports she was taking a sliding scale insulin at home as well as her long-acting insulin. She is not for sure how much of the oral medicine she was able to take as she was vomiting. We are still awaiting records from [facility] in [place]. Medications: Reviewed: Yes Vitals/I&O/Wt Last Vital Signs Temp 98.7 F 01/05/20 07:11 Pulse 74 01/05/20 07:11 Resp 24 H 01/05/20 07:11 BP 150/66 01/05/20 07:11 Pulse Ox 90 01/05/20 07:11 Weight last 48 hrs Weight 104.893 kg Weight 102.512 kg Physical Exam Narrative: EXAM NARRATIVE: General exam is no apparent distress Cardiovascular regular rate and rhythm without murmur Lungs clear Abdomen is soft with positive bowel sounds. Obese. Extremities no cyanosis clubbing or edema Data : 01/05/20 03:15 01/05/20 03:15 A&P Assessment and plan (1) Vomiting: Likely secondary to markedly elevated sugar, markedly elevated blood pressure. Currently resolved. Placed on Protonix Status: Acute Qualifiers: Vomiting type: unspecified Vomiting Intractability: intractable Nausea presence: with nausea Qualified Code(s): R11.2 - Nausea with vomiting, unspecified (2) Left arm pain: Resolved. CT head nothing acute. Unsure if this was musculoskeletal versus related to elevated blood pressure. Await echocardiogram. Check carotid duplex. Status: Acute (3) Elevated troponin: May be chronically elevated. Has history of Takotsubo. Could be secondary to marked elevation in blood pressure. Await echocardiogram. Will not order nuclear stress testing or other evaluation until old records can be reviewed. Apparently she had a very extensive cardiac work-up at [facility] in [place] in June. Continue aspirin, statin, beta-jeanette. Status: Acute (4) Acute hyperglycemia: Improving with placing on patient's insulin Status: Acute (5) Diabetes: Very poorly controlled with hemoglobin A1c 13.3. Status: Chronic Qualifiers: Diabetes mellitus type: type 2 Diabetes mellitus residential insulin use: with residential use Diabetes mellitus complication status: with neurologic comp lications Diabetes mellitus complication detail: with polyneuropathy Qualified Code(s): E11.42 - Type 2 diabetes mellitus with diabetic polyneuropathy; Z79.4 - alf (current) use of insulin (6) Hypertension: Continue patient's carvedilol. Lisinopril discontinued secondary to renal function. Change nitroglycerin ointment to Imdur Add Norvasc 5 mg daily Monitor blood pressure closely TSH was checked and normal. Status: Chronic Qualifiers: Hypertension type: unspecified Qualified Code(s): I10 - Essential (primary) hypertension (7) Hypercholesteremia: Statin initiated Status: Chronic (8) Takotsubo cardiomyopathy: In June 2019 after the of her , treated at [facility] old records Status: Chronic (9) Diastolic CHF: With ejection fraction 55% on last echocardiogram in 2017 Repeat echocardiogram here has been ordered Status: Chronic Qualifiers: Heart failure chronicity: chronic Qualified Code(s): I50.32 - Chronic diastolic (congestive) heart failure (10) Acute kidney injury: With underlying chronic kidney disease. Continue hydration Repeat BMP tomorrow Urinalysis only had 1+ protein, doubt nephrotic syndrome Status: Acute (11) Chronic kidney disease, stage 3: Creatinine August of this year was 1.7 and back in January it was around 1.5 Status: Chronic (12) ANA (obstructive sleep apnea): Not on CPAP by choice Status: Chronic (13) GERD (gastroesophageal reflux disease): Protonix initiated Status: Chronic Qualifiers: Esophagitis presence: esophagitis presence not specified Qualified Code(s): K21.9 - Gastro-esophageal reflux disease without esophagitis Additional A&P Information Depression/anxiety. Continue Zoloft. Heparin subcutaneous for DVT prophylaxis Full code Attestations Medical Necessity Statement*: Needs continued hospitalization for close mon itoring secondary to hypertensive urgency, acute kidney injury, chest pain with need for further evaluation. Coding Level of Care Code Acute Permit Coordinator for Chg Fwd Diagnoses Vomiting R11.2 Vomiting type: unspecified Vomiting Intractability: intractable Nausea presence: with nausea Left arm pain M79.602 Elevated troponin R79.89 Acute hyperglycemia R73.9 Diabetes E11.42; Z79.4 Diabetes mellitus type: type 2 Diabetes mellitus residential insulin use: with residential use Diabetes mellitus complication status: with neurologic complications Diabetes mellitus complication detail: with polyneuropathy Hypertension I10 Hypertension type: unspecified Hypercholesteremia E78.00 Takotsubo cardiomyopathy I51.81 Diastolic CHF I50.32 Heart failure chronicity: chronic Acute kidney injury N17.9 Chronic kidney disease, stage 3 N18.3 ANA (obstructive sleep apnea) G47.33 GERD (gastroesophageal reflux disease) K21.9 Esophagitis presence: esophagitis presence not specified
[2020-01-05] MEDS: sodium chloride 0.45% 1,000 ML 50 ML IV (08:36)
[2020-01-05] MEDS: pantoprazole DR 40 mg Tablet PO (08:38)
[2020-01-05] MEDS: carvedilol 25 mg Tablet PO ×2 (08:38→17:29)
[2020-01-05] MEDS: sucralfate 1 gm Tablet PO ×4 (08:38→21:11)
[2020-01-05] MEDS: amlodipine 5 mg Tablet PO (08:38)
[2020-01-05] MEDS: sertraline 50 mg Tablet PO (08:38)
[2020-01-05] MEDS: isosorbide mononitrate ER 30 mg Tablet PO (08:38)
[2020-01-05] MEDS: aspirin 81 mg Chew Tablet PO (08:38)
[2020-01-05] MEDS: ondansetron 2 mg/ML SDV 2 mL 4 MG IVP (09:49)
[2020-01-05 11:00] LABS: Glucose Point of Care 351 mg/dL (70-110)
[2020-01-05 15:55] LABS: Glucose Point of Care 270 mg/dL (70-110)
--- NOTE | 2020-01-05 19:48 | PC.NURSE ---
Rounding: Patient sitting on the side of the bed, and denies any pain or discomfort. Patient assisted to the bathroom and back to bed. Patient call light is within reach. Will continue montior.
[2020-01-05 20:13] LABS: Glucose Point of Care 192 mg/dL (70-110)
--- NOTE | 2020-01-05 23:05 | USCV_ITS ---
Iris Rockwell Age: 74 Gender: F : 1945 Exam Date: 01/05/2020 06:45 Ordering Phys: Irina Moss MD Technologist: Sonia Hurd Exam Location: [facility] – [place] Indication: Left arm pain, elevated troponin, history of BP: 130 / 74 HR: 74 Rhythm: Sinus Technical Quality: Fair MEASUREMENTS (Male / Female) Normal Values 2D ECHO LV Diastolic Diameter PLAX 3.9 cm 4.2 - 5.9 / 3.9 - 5.3 cm LV Systolic Diameter PLAX 2.8 cm LV Chamber Size 3.6 cm IVS Diastolic Thickness 2.0 cm 0.6 - 1.0 / 0.6 - 0.9 cm IVS Systolic Thickness 1.8 cm LVPW Diastolic Thickness 1.7 cm 0.6 - 1.0 / 0.6 - 0.9 cm LVPW Systolic Thickness 2.1 cm RV Chamber Size 2.0 cm LVOT Diameter 2.0 cm LV Ejection Fraction 2D Teich 54.9 % LV Ejection Fraction MOD 2C 67.7 % LV Ejection Fraction 2C AL 67.3 % LA Diameter 3.8 cm LA Width 3.2 cm LA Height 5.3 cm RA Width 3.0 cm RA Height 5.5 cm Aorta at Sinotubular Diameter 2.6 cm M-MODE LV Diastolic Diameter MM 4.4 cm 4.2 - 5.9 / 3.9 - 5.3 cm LV Systolic Diameter MM 2.9 cm LV Ejection Fraction MM Teich 62.3 % IVS Diastolic Thickness MM 1.9 cm 0.6 - 1.0 / 0.6 - 0.9 cm IVS Systolic Thickness MM 2.2 cm LVPW Diastolic Thickness MM 1.7 cm 0.6 - 1.0 / 0.6 - 0.9 cm LVPW Systolic Thickness MM 1.9 cm RV Diastolic Diameter MM 3.0 cm Aortic Annulus Diameter 3.5 cm LA Ao Ratio MM 1.1 MV E Point Septal Separation 0.6 cm DOPPLER AV Peak Velocity 193.0 cm/s LVOT Peak Velocity 112.0 cm/s AV Area Cont Eq vti 1.9 cm squared AV Area Cont Eq pk 1.8 cm squared MV Area PHT 2.9 cm squared Mitral E to A Ratio 0.8 MV E' Velocity 4.0 cm/s Mitral E to MV E' Ratio 29.0 Mitral E to LV E' Lateral Ratio 27.0 Mitral E to LV E' Septal Ratio 31.4 TR Peak Velocity 336.0 cm/s TR Peak Gradient 45.2 mmHg TV Peak E Velocity 49.0 cm/s Right Atrial Pressure 3.0 mmHg Pulmonary Artery Systolic Pressu 48.2 mmHg PV Peak Velocity 82.0 cm/s RV Acceleration Time 0.1 s RV Ejection Time 0.2 s RV AcT/ET 0.2 FINDINGS Left Ventricle Normal left ventricular size, systolic function and wall thickness, with no regional wall motion abnormalities. Grade I/IV diastolic dysfunction (abnormal relaxation filling pattern), normal to mildly elevated filling pressures. Left ventricular ejection fraction is estimated at 60 %. Right Ventricle Normal right ventricular size and systolic function. Mild pulmonary hypertension, RVSP 48.2 mmHg. Right Atrium The right atrium is normal in size. Left Atrium The left atrium is normal in size. Mitral Valve Thickened mitral valve. Severe mitral annular calcification. Trace mitral valve regurgitation. No mitral valve stenosis. Aortic Valve Structurally normal trileaflet aortic valve. Mild aortic valve calcification. No aortic valve regurgitation. Mild aortic valve stenosis, mean gradient 7.9 mmHg, MICHAEL 1.9 cm squared. Tricuspid Valve Structurally normal tricuspid valve. Mild tricuspid valve regurgitation. Pulmonic Valve Pulmonic valve not well visualized. Pericardium Normal pericardium without effusion. Aorta Normal ascending aorta dimension. CONCLUSIONS Normal left ventricular size, systolic function and wall thickness, with no regional wall motion abnormalities. Grade I/IV diastolic dysfunction (abnormal relaxation filling pattern), normal to mildly elevated filling pressures. Left ventricular ejection fraction is estimated at 60 %. Normal right ventricular size and systolic function. Mild pulmonary hypertension, RVSP 48.2 mmHg. Thickened mitral valve. Severe mitral annular calcification. Trace mitral valve regurgitation. No mitral valve stenosis. Structurally normal trileaflet aortic valve. Mild aortic valve calcification. No aortic valve regurgitation. Mild aortic valve stenosis, mean gradient 7.9 mmHg, MICHAEL 1.9 cm squared. No change from 01/29/2019 Dr. John Fields MD (Electronically Signed) Final Date: 05 January 2020 18:47 S
[2020-01-06 03:55] VITALS: BP 160/68; PULSE 65; RESP 15; TEMP 36.7; O2SAT 92
[2020-01-06] MEDS: sodium chloride 0.45% 1,000 ML 50 ML IV (03:57)
[2020-01-06 03:59] VITALS: BMI 38.7
[2020-01-06] MEDS: acetaminophen 325 mg Tablet 650 MG PO (04:44)
[2020-01-06 04:48] LABS: Basophils # 0.1 10^3/uL (0.0-0.1); Basophils % 0.7 %; Eosinophils # 0.4 10^3/uL (0.0-0.8); Eosinophils % 3.8 %; Hematocrit 36.3 % (37.0-47.0); Hemoglobin 11.1 g/dL (11.5-15.3); Lymphocytes # 3.6 10^3/uL (0.8-4.8); Lymphocytes % 31.9 %; Mean Corpuscular HGB Conc 30.6 g/dL (30.0-36.0); Mean Corpuscular Hemoglobin 26.8 pg (28.0-34.0); Mean Corpuscular Volume 87.7 fL (81-99); Mean Platelet Volume 12.1 fL (7.4-10.4); Monocytes # 1.1 10^3/uL (0.2-0.9); Monocytes % 10.1 %; Neutrophils # 5.98 10^3/uL (1.8-7.7); Neutrophils % 52.7 %; Nucleated Red Blood Cells % 0 %; Platelet Count 359 10^3/cmm (130-400); Red Blood Count 4.14 10^6/uL (4.1-5.3); Red Cell Distribution Width 14.6 % (12.1-15.1); White Blood Count 11.3 10^3/uL (4.0-10.0)
[2020-01-06 05:00] LABS: Anion Gap 13.7 (5-19); Blood Urea Nitrogen 40 mg/dL (8-23); Carbon Dioxide 26 mmol/L (22-29); Chloride 100 mmol/L (98-107); Glucose 210 mg/dL (65-115); Osmolality Calculated 284 mOsm/kg (285-295); Potassium 4.7 mmol/L (3.5-5.1); Sodium 135 mmol/L (136-145)
--- NOTE | 2020-01-06 05:27 | PC.NURSE ---
End of shift: Patient has had a uneventful shift and has rested well. Patient remains alert and oriented. Patient had a slight head ache this morning relieved by tylenol. Patient call light remains within reach, bed in low position and side rails up x2.
[2020-01-06] MEDS: heparin 5,000 unit/mL INJ 1 mL 5000 UNIT SUBCUT ×3 (06:16→22:22)
[2020-01-06 06:24] LABS: Glucose Point of Care 188 mg/dL (70-110)
[2020-01-06 06:54] VITALS: BP 160/90; PULSE 68; RESP 16; TEMP 36.7; O2SAT 92
[2020-01-06] MEDS: carvedilol 25 mg Tablet PO ×2 (08:30→17:17)
[2020-01-06] MEDS: aspirin 81 mg Chew Tablet PO (08:31)
[2020-01-06] MEDS: isosorbide mononitrate ER 30 mg Tablet PO (08:31)
[2020-01-06] MEDS: sertraline 50 mg Tablet PO (08:31)
[2020-01-06] MEDS: pantoprazole DR 40 mg Tablet PO (08:31)
[2020-01-06] MEDS: amlodipine 5 mg Tablet PO (08:31)
[2020-01-06] MEDS: sucralfate 1 gm Tablet PO ×4 (08:31→20:32)
--- NOTE | 2020-01-06 09:13 | P.PN_ITS ---
Subjective Subjective: Interval history: Chart reviewed, patient known to me from previous admission, Cr stable, BP improved though trending up this AM. BG better controlled. No acute overnight events reported. Medications: Reviewed: Yes Medication Review Details: Active Medications Generic Name Dose Route Start Last Admin Trade Name Freq PRN Reason Stop Dose Admin Acetaminophen 650 mg 01/04/20 23:05 01/06/20 04:44 Tylenol PO 650 mg Q6H PRN Administration Mild/Mod Pain Or Temp >/= 101 Amlodipine Besylat e 5 mg 01/05/20 09:00 01/06/20 08:31 Norvasc PO 5 mg DAILY JT Administration Aspirin 81 mg 01/05/20 09:00 01/06/20 08:31 Aspirin Chewable PO 81 mg DAILY JT Administration Atorvastatin Calci um 40 mg 01/05/20 06:05 01/05/20 21:11 Lipitor PO 40 mg BEDTIME JT Administration Bisacodyl 10 mg 01/04/20 23:05 Dulcolax PO DAILY PRN CONSTIPATION Carvedilol 25 mg 01/05/20 09:00 01/06/20 08:30 Coreg PO 25 mg BID JT Administration Dextrose 25 ml 01/04/20 23:05 D50w IVP ONCE PRN hypoglycemia prot ocol Protocol Dextrose 50 ml 01/04/20 23:05 D50w IVP PRN PRN hypoglycemia prot ocol Protocol Glucagon 1 mg 01/04/20 23:05 Glucagen IM ONCE PRN Adult Acute Hypog lycemia Prot. Protocol Heparin Sodium (Be ef Lung) 5,000 unit 01/04/20 23:05 01/06/20 06:16 Heparin SUBCUT 5,000 unit Q8H JT Administration Hydralazine HCl 10 mg 01/04/20 23:05 Apresoline IVP Q4H PRN sbp>/=180 Dextrose 500 mls @ 100 mls /hr 01/04/20 23:05 D5w IV ONCE PRN Adult Acute Hypog lycemia Prot Protocol Sodium Chloride 1,000 mls @ 50 ml s/hr 01/05/20 06:30 01/06/20 03:57 Sodium Chloride 0.45% IV 50 mls/hr .Q20H JT Administration Insulin Aspart 0 unit 01/04/20 23:05 01/05/20 21:11 Novolog SUBCUT 3 unit BEDTIME JT Administration Protocol Insulin Aspart 0 unit 01/05/20 08:00 01/06/20 07:06 Novolog SUBCUT 6 unit TIDWM JT Administration Protocol Insulin Detemir 25 unit 01/05/20 21:00 01/05/20 21:12 Levemir SUBCUT 25 unit BEDTIME JT Administration Isosorbide Mononit rate 30 mg 01/05/20 09:00 01/06/20 08:31 Imdur PO 30 mg DAILY JT Administration Nitroglycerin 0.4 mg 01/04/20 23:05 Nitrostat SUBLINGUAL Q5M PRN chest pains Ondansetron HCl 4 mg 01/04/20 23:05 01/05/20 09:49 Zofran IVP 4 mg Q8H PRN Administration vomiting, or N/V if npo Pantoprazole Sodiu m 40 mg 01/05/20 09:00 01/06/20 08:31 Protonix PO 40 mg DAILY JT Administration Sertraline HCl 50 mg 01/05/20 09:00 01/06/20 08:31 Zoloft PO 50 mg DAILY JT Administration Sucralfate 1 gm 01/05/20 09:00 01/06/20 08:31 Carafate PO 1 gm QID JT Administration morphine Allergy (Verified 01/04/20 18:50) unknown zolpidem Allergy (Verified 01/04/20 18:50) na Vitals/I&O/Wt Last Vital Signs Temp 98.1 F 01/06/20 06:54 Pulse 68 01/06/20 06:54 Resp 16 01/06/20 06:54 BP 160/90 01/06/20 06:54 Pulse Ox 92 01/06/20 06:54 01/05/20 01/06/20 01/06/20 22:59 06:59 14:59 Intake Total 120 / 960 1467.5 / 2427.5 360 / 360 Balance 120 / 460 1467.5 / 1927.5 360 / 360 Weight last 48 hrs Weight 105.687 kg Weight 104.893 kg Weight 102.512 kg Physical Exam Const: COMMON NORMALS: no acute distress and patient oriented x3 GENERAL APPEARANCE: cooperative and comfortable NUTRITIONAL APPEARANCE: obese morbidly obese ORIENTATION/CONSCIOUSNESS: Yes awake HENMT: COMMON NORMALS: normocephalic, atraumatic, hearing grossly normal bilaterally and moist oral mucous membranes HEAD & SCALP: normocephalic and atraumatic Eye: COMMON NORMALS: Equal, round and reactive pupils present, EOMs intact bilaterally and conjunctivae normal CONJUNCTIVA: Yes conjunctivae normal PUPIL: Yes Equal, round and reactive pupils present Neck/C-Spine: COMMON NORMALS: full ROM GENERAL: Yes normal visual inspection and Yes trachea midline Resp: COMMON NORMALS: normal respiratory effort, No retractions, No use of accessory muscles and clear to auscultation bilaterally EFFORT & INSPECTION: Yes able to speak in complete sentences, Yes symmetric chest movement and No tachypneic AUSCULTATION: clear to auscultation bilaterally Cardio: COMMON NORMALS: regular rate, regular rhythm, S1 normal heart sound present, S2 normal heart sound present and No murmurs present (Cardio) RATE: regular rate RHYTHM: regular rhythm HEART SOUNDS: S1 normal heart sound present and S2 normal heart sound present GI: COMMON NORMALS: Normal to inspection, nondistended, normoactive bowel sounds present, Soft to palpation and non-tender INSPECTION: Yes central obesity PALPATION: Yes Soft to palpation Extremity: COMMON NORMALS: normal to inspection, full ROM, no clubbing, cyanosis or edema and no pedal edema NARRATIVE EXTREMITY EXAM: -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 Neuro: COMMON NORMALS: patient oriented x3, moves all extremities, no focal motor deficits, no sensory deficits noted and gait normal Psych: COMMON NORMALS: mental status grossly normal, Normal thought process present, cooperative, normal affect and speech normal SPEECH: Yes normal speech THOUGHT PROCESS: Normal thought process present Skin: COMMON NORMALS: no rashes or lesions noted, no jaundice, no petechiae and no mottling GENERAL SKIN EXAM: no rashes or lesions noted Data : 01/06/20 04:13 01/06/20 04:13 A&P Assessment and plan (1) Acute kidney injury: -has known CKD stage 3 with superimposed JOSE LUIS -baseline Cr seems to be gradually increasing -Cr so far has been stable in the 2-2.2 range -continue to monitor renal function, avoid nephrotoxins, renally dose meds Status: Acute (2) Takotsubo cardiomyopathy: -had extensive workup done in [facility] in [place] in 06/2019; records reviewed -Echo with EF=43%, LVH, noted distal septal, apical and anterolateral hypokinesia/apical ballooning consistent with Takotsubo cardiomyopathy; mild MR. No mention of stress testing or cardiac cath. 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 -poorly controlled, A1c-13.3 -accuchecks, ISS, scheduled insulin; titrate as needed for optimal BG control -consistent carb diet as tolerated Status: Chronic Qualifiers: Diabetes mellitus complication detail: with polyneuropathy Diabetes mellitus complication status: with neurologic complications Diabetes mellitus residential insulin use: with manager terminal use Diabetes mellitus type: type 2 Qualified Code(s): E11.42 - Type 2 diabetes mellitus with diabetic polyneuropathy; Z79.4 - MCFP (current) use of insulin (4) Left arm pain: -CT head and carotid duplex unremarkable -Echo as noted above Status: Resolved (5) Depression: -continue Sertraline Status: Chronic Qualifiers: Depression Type: unspecified Qualified Code(s): F32.9 - Major depressive disorder, single episode, unspecified (6) Chronic kidney disease, stage 3: -as noted above Status: Chronic (7) ANA (obstructive sleep apnea): Status: Chronic (8) GERD (gastroesophageal reflux disease): -on PPI and carafate Status: Chronic Qualifiers: Esophagitis presence: esophagitis presence not specified Qualified Code(s): K21.9 - Gastro-esophageal reflux disease without esophagitis (9) Hypertension: -initially presented with hypertensive urgency, now resolved -continue oral antihypertensives; off Lisinopril due to renal impairment Status: Chronic Qualifiers: Hypertension type: unspecified Qualified Code(s): I10 - Essential (primary) hypertension (10) Hypercholesteremia: -on statin -lipid panel noted Status: Chronic (11) Vomiting: -antiemetics as needed Status: Resolved Qualifiers: Nausea presence: with nausea Vomiting Intractability: intractable Vomiting type: unspecified Qualified Code(s): R11.2 - Nausea with vomiting, unspecified (12) Diastolic CHF: -Echo: EF=60%, G1DD, no RWMA, mild pulmonary HTN, mild , mild TR, trace MR -no acute exacerbation Status: Chronic Qualifiers: Heart failure chronicity: chronic Qualified Code(s): I50.32 - Chronic diastolic (congestive) heart failure Additional A&P Information -Morbid obesity: BMI-39 kg/m2 -GI ppx with PPI -DVT ppx with heparin -Dispo: home -Code status: FULL code Attestations Medical Necessity Statement*: Patient requires hospitalization for continued monitoring of renal function, BP. Time Spent in Patient Care: Greater than 35 minutes (>than 50% of time spent in counselling and/or direct pt care on unit) . 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 for g Fwd Exam Comprehensive Diagnoses Acute kidney injury N17.9 Takotsubo cardiomyopathy I51.81 Diabetes E11.42; Z79.4 Diabetes mellitus complication detail: with polyneuropathy Diabetes mellitus complication status: with neurologic complications Diabetes mellitus residential insulin use: with manager terminal use Diabetes mellitus type: type 2 Left arm pain M79.602 Depression F32.9 Depression Type: unspecified Chronic kidney disease, stage 3 N18.3 ANA (obstructive sleep apnea) G47.33 GERD (gastroesophageal reflux disease) K21.9 Esophagitis presence: esophagitis presence not specified Hypertension I10 Hypertension type: unspecified Hypercholesteremia E78.00 Vomiting R11.2 Nausea presence: with nausea Vomiting Intractability: intractable Vomiting type: unspecified Diastolic CHF I50.32 Heart failure chronicity: chronic
--- NOTE | 2020-01-06 09:34 | PC.NURSE ---
0830 patient denies any event through the night. denies any pain this am; reports feeling good.
--- NOTE | 2020-01-06 10:31 | PC.NURSE ---
Dr Trivedi at bedside talking to patient and performing assessment at this time. Dr Trivedi discussing possible discharge options at this time. Dr Trivedi wants blood pressure controlled more consistently and monitoring kidney function before discharging at this time.
[2020-01-06 11:20] LABS: Glucose Point of Care 288 mg/dL (70-110)
[2020-01-06 12:00] VITALS: BP 114/51; PULSE 66; RESP 16; TEMP 36.6; O2SAT 96
[2020-01-06 15:40] VITALS: BP 114/62; PULSE 68; RESP 97; TEMP 36.7; O2SAT 97
[2020-01-06 16:08] LABS: Glucose Point of Care 228 mg/dL (70-110)
[2020-01-06 19:33] VITALS: BP 110/61; PULSE 63; RESP 16; TEMP 36.6; O2SAT 97
--- NOTE | 2020-01-06 20:26 | PC.NURSE ---
Patient does not have any complaints at this time. Call light is within reach. Will monitor.
[2020-01-06] MEDS: atorvastatin 40 mg Tablet PO (20:32)
[2020-01-06 20:45] LABS: Glucose Point of Care 164 mg/dL (70-110)
[2020-01-06 23:58] VITALS: BP 114/59; PULSE 66; RESP 12; O2SAT 94
[2020-01-07 03:40] VITALS: BP 146/68; PULSE 66; RESP 14; TEMP 36.6; O2SAT 92
[2020-01-07 04:47] LABS: Blood Urea Nitrogen 46 mg/dL (8-23); Calcium 8.6 mg/dL (8.5-10.5); Carbon Dioxide 24 mmol/L (22-29); Chloride 102 mmol/L (98-107); Glucose 166 mg/dL (65-115); Osmolality Calculated 280 mOsm/kg (285-295); Sodium 134 mmol/L (136-145)
[2020-01-07 06:26] LABS: Glucose Point of Care 166 mg/dL (70-110)
[2020-01-07] MEDS: heparin 5,000 unit/mL INJ 1 mL 5000 UNIT SUBCUT ×2 (06:46→14:21)
--- NOTE | 2020-01-07 06:55 | PC.NURSE ---
Patient does not have any complaints at this time. Will monitor.
[2020-01-07 07:46] VITALS: BP 152/72; PULSE 69; RESP 12; O2SAT 98
[2020-01-07] MEDS: aspirin 81 mg Chew Tablet PO (08:44)
[2020-01-07] MEDS: carvedilol 25 mg Tablet PO (08:44)
[2020-01-07] MEDS: pantoprazole DR 40 mg Tablet PO (08:44)
[2020-01-07] MEDS: isosorbide mononitrate ER 30 mg Tablet PO (08:44)
[2020-01-07] MEDS: sucralfate 1 gm Tablet PO ×2 (08:44→12:39)
[2020-01-07] MEDS: amlodipine 5 mg Tablet PO (08:44)
[2020-01-07] MEDS: sertraline 50 mg Tablet PO (08:44)
--- NOTE | 2020-01-07 09:37 | PC.SOCIAL ---
IMM completed on 01/07/2020 @ 1628
[2020-01-07 11:20] LABS: Glucose Point of Care 191 mg/dL (70-110)
--- NOTE | 2020-01-07 11:32 | PC.CHAP ---
Pastoral Care Encounter/Spiritual Assessment Type of Contact [] Declined barrel tester and drainer visit [] Patient/Family/Request visit [] Outpatient visit [] Follow-up visit [] Physician referral [] Code/Alert [x] Routine visit [] Staff referral [] Actively dying [] Patient sleeping [] Family support [] [] Out of room [] Palliative care [] [x] Receiving care in room [] Pre-surgical visit [] Trauma [] Long length of stay [] ICU visit [] Other: Relational/Emotional Strength [x] Patient feels connected with others/family/visitors/staff [] Distress [] Loneliness/isolation [] Abandonment Spirituality of Patient [x] Person of Layla [] Attends [employer] of their [place] [x] Believes in Prayer [] Reads Bible or Mormon materials [] There are Spiritual issues to be addressed Networker Interventions [x] Prayer [x] Active listening [x] Non-anxious presence [x] Spiritual/emotional support [] Crisis/trauma care [x] Spiritual counseling [] Bereavement support [] Provided bereavement packet [] Provided Bible/devotional materials [] Provided toy/stuffed animal, coloring book to patient or family member [] Provided Communion [] Anointing/[place] [] Salvation [x] Completed spiritual assessment [] Other: Impact on Illness or Injury [] Angry [] Fearful [] Anxious [] Often cries [] Exhaustion [] Unable to work [] Unable to attend quaker [] Unable to walk/stand [] Unable to read [] Unable to drive [] Unable to eat/drink [] Unable to sleep [] Unable to be with family [] Patient intubated [] Other: Summary Tests OK, feels good going home, good attitude Time spent with patient 10 mins
--- NOTE | 2020-01-07 13:06 | PM.DCS ---
Discharge Providers Date of Admission: 01/04/20 21:51 Date of Discharge: January 07, 2020 Attending Provider at Admission: Irina Moss MD Attending Provider at Discharge: Shikha Wise MD Primary Care Provider: Osito Owens MD Diagnoses at Discharge Discharge Diagnosis (1) Acute kidney injury: Status: Acute Problem details: -has known CKD stage 3 with superimposed JOSE LUIS -baseline Cr seems to be gradually increasing -Cr so far has been stable in the 2-2.4 range -continue to monitor renal function, avoid nephrotoxins, renally dose meds (2) Takotsubo cardiomyopathy: Status: Chronic Problem details: -had extensive workup done in [facility] in [place] in 06/2019; records reviewed -Echo with EF=43%, LVH, noted distal septal, apical and anterolateral hypokinesia/apical ballooning consistent with Takotsubo cardiomyopathy; mild MR. No mention of stress testing or cardiac cath. 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; s/p toe amputations due to diabetic foot infections -poorly controlled, A1c-13.3 -accuchecks, ISS, scheduled insulin; titrate as needed for optimal BG control -consistent carb diet as tolerated Qualifiers: Diabetes mellitus complication detail: with polyneuropathy Diabetes mellitus complication status: with neurologic complications Diabetes mellitus fci insulin use: with intermediate designer use Diabetes mellitus type: type 2 Qualified Code(s): E11.42 - Type 2 diabetes mellitus with diabetic polyneuropathy; Z79.4 - longterm (current) use of insulin (4) Left arm pain: Status: Resolved Problem details: -CT head and carotid duplex unremarkable -Echo as noted above (5) Depression: Status: Chronic Problem details: -continue Sertraline Qualifiers: Depression Type: unspecified Qualified Code(s): F32.9 - Major depressive disorder, single episode, unspecified (6) Chronic kidney disease, stage 3: Status: Chronic Problem details: -as noted above -Nephrology f/u as outpatient (7) ANA (obstructive sleep apnea): Status: Chronic Problem details: does not wear cpap by choice (8) GERD (gastroesophageal reflux disease): Status: Chronic Problem details: -on PPI and carafate Qualifiers: Esophagitis presence: esophagitis presence not specified Qualified Code(s): K21.9 - Gastro-esophageal reflux disease without esophagitis (9) Hypertension: Status: Chronic Problem details: -initially presented with hypertensive urgency, now resolved -continue oral antihypertensives; off Lisinopril due to renal impairment Qualifiers: Hypertension type: unspecified Qualified Code(s): I10 - Essential (primary) hypertension (10) Hypercholesteremia: Status: Chronic Problem details: -on statin -lipid panel noted (11) Vomiting: Status: Resolved Qualifiers: Nausea presence: with nausea Vomiting Intractability: intractable Vomiting type: unspecified Qualified Code(s): R11.2 - Nausea with vomiting, unspecified (12) Diastolic CHF: Status: Chronic Problem details: -Echo: EF=60%, G1DD, no RWMA, mild pulmonary HTN, mild , mild TR, trace MR -no acute exacerbation Qualifiers: Heart failure chronicity: chronic Qualified Code(s): I50.32 - Chronic diastolic (congestive) heart failure Reason for Visit Reason for Visit: STROKE LIKE SYMPTOMS Hospital Course Hospital Course: Patient was admitted to the cardiac stepdown unit and placed on telemetry monitoring. She was noted to have elevated troponins with no significant delta and due to history of Takotsubo cardiomyopathy had echo done as noted above. She has had work-up done during recent hospitalization earlier this year at [facility]; records were reviewed upon receipt and are available in the paper chart. Symptoms particularly left upper extremity pain, nausea and vomiting have resolved. She was found to have acutely worsening renal function superimposed on CKD stage III necessitating close monitoring of her kidney function during her hospitalization. Creatinine has remained stable in the 2-2.4 range and anticipate that this may be her new baseline. She will need outpatient nephrology follow-up and DESIREE inhibitor has been discontinued. She was quite hyperglycemic initially requiring adjustment of her insulin regimen for better control of her blood sugars. A1c is 13.3 and she is encouraged to continue to monitor her blood glucose at home. She has been hemodynamically stable, afebrile, and has not required supplemental oxygen. She will require close follow-up with her primary care provider. She is advised to seek medical attention immediately should any of her symptoms worsen or recur. Discharge Summary: -Patient to follow-up with her primary care provider within 1 week -Patient to follow-up with nephrology for continued evaluation of chronic kidney disease stage III Physical Exam Const: COMMON NORMALS: no acute distress and patient oriented x3 GENERAL APPEARANCE: cooperative and comfortable NUTRITIONAL APPEARANCE: obese morbidly obese ORIENTATION/CONSCIOUSNESS: Yes awake HENMT: COMMON NORMALS: normocephalic, atraumatic, hearing grossly normal bilaterally and moist oral mucous membranes HEAD & SCALP: normocephalic and atraumatic Eye: COMMON NORMALS: Equal, round and reactive pupils present, EOMs intact bilaterally and conjunctivae normal CONJUNCTIVA: Yes conjunctivae normal PUPIL: Yes Equal, round and reactive pupils present Neck/C-Spine: COMMON NORMALS: full ROM GENERAL: Yes normal visual inspection and Yes trachea midline Resp: COMMON NORMALS: normal respiratory effort, No retractions, No use of accessory muscles and clear to auscultation bilaterally EFFORT & INSPECTION: Yes able to speak in complete sentences, Yes symmetric chest movement and No tachypneic AUSCULTATION: clear to auscultation bilaterally Cardio: COMMON NORMALS: regular rate, regular rhythm, S1 normal heart sound present, S2 normal heart sound present and No murmurs present (Cardio) RATE: regular rate RHYTHM: regular rhythm HEART SOUNDS: S1 normal heart sound present and S2 normal heart sound present GI: COMMON NORMALS: Normal to inspection, nondistended, normoactive bowel sounds present, Soft to palpation and non-tender INSPECTION: Yes central obesity PALPATION: Yes Soft to palpation Extremity: COMMON NORMALS: normal to inspection, full ROM, no clubbing, cyanosis or edema and no pedal edema NARRATIVE EXTREMITY EXAM: -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 Neuro: COMMON NORMALS: patient oriented x3, moves all extremities, no focal motor deficits, no sensory deficits noted and gait normal Psych: COMMON NORMALS: mental status grossly normal, Normal thought process present, cooperative, normal affect and speech normal SPEECH: Yes normal speech THOUGHT PROCESS: Normal thought process present Skin: COMMON NORMALS: no rashes or lesions noted, no jaundice, no petechiae and no mottling GENERAL SKIN EXAM: no rashes or lesions noted Discharge Data Data Completed and Pending: Completed Studies During Hospitalization Category Date Time Status CT head wo con* [id number] Urgent Cat Scan 01/04/20 18:04 Completed XR chest 1V zhanna ble [id number] Urgent Exams 01/04/20 18:04 Completed CV carotid duplex BI* [id number] Routine Ultrasound 01/05/20 06:01 Completed CV echo complete* [id number] Routine Ultrasound 01/05/20 23:05 Completed Labs from last 24 hours 01/07/20 01/07/20 01/07/20 11:17 06:07 04:21 Sodium 134 L Potassium 5.0 Chloride 102 Carbon Dioxide 24 Anion Gap 13.0 BUN 46 H Creatinine 2.4 H Glucose 166 H POC Glucose 191 166 Calculated Osmolal ity 280 L Calcium 8.6 01/06/20 01/06/20 20:23 15:43 Sodium Potassium Chloride Carbon Dioxide Anion Gap BUN Creatinine Glucose POC Glucose 164 228 Calculated Osmolal ity Calcium Vitals: Last Vital Signs Temp 97.8 F 01/07/20 03:40 Pulse 69 01/07/20 07:46 Resp 12 01/07/20 07:46 BP 152/72 01/07/20 07:46 Pulse Ox 98 01/07/20 07:46 Discharge Plan Discharge Patient Disposition: Home, Self-Care Condition: Stable Prescriptions: New atorvastatin 40 mg Tablet 40 mg PO BEDTIME Qty: 30 RF: 0 isosorbide mononitrate 30 mg Tablet Extended Release 24 Hr 30 mg PO DAILY Qty: 30 RF: 0 amlodipine 5 mg Tablet 5 mg PO DAILY Qty: 30 RF: 0 pantoprazole 40 mg Tablet,Delayed Release (Dr/Ec) 40 mg PO DAILY Qty: 30 RF: 0 Continued aspirin 81 mg tablet,chewable 81 mg PO DAILY RF: 0 nitroglycerin 0.4 mg tablet, sublingual 0.4 mg SUBLINGUAL Q5M PRN (Reason: chest pains) RF: 0 sucralfate [Carafate] 1 gram tablet 1 gm PO QID RF: 0 sertraline 50 mg tablet 50 mg PO Q24H 30 Days Qty: 30 RF: 5 carvedilol 25 mg tablet 25 mg PO BID 90 Days Qty: 180 RF: 3 Novolog Flexpen U-100 Insulin 100 unit/mL (3 mL) insulin pen See Rx Instructions .ROUTE .COMPLEX RF: 0 Levemir FlexTouch U-100 Insuln 100 unit/mL (3 mL) insulin pen 20 unit SUBCUT BEDTIME RF: 0 Changed Humalog KwikPen Insulin 100 unit/mL insulin pen 10 unit SUBCUT TID 30 Days Qty: 15 RF: 11 Discontinued lisinopril 20 mg tablet 20 mg PO DAILY RF: 0 Discharge Orders: Discharge Order (Routine); Ordered 01/07/20 Ordered By: Shikha Wise Referrals: Osito Owens MD [Primary Care Provider] - 4-7 days ([facility] will contact you to schedule an follow-up in 4 to 7 days. If you haven't heard from them by tomorrow morning. Please, call ) Rao Pickering MD [Referring] - 1 week ([facility] will contact you to schedule an appointment. If you haven't from them in a reasonable amount of time. Please call ) Discharge Diet: Cardiac and Diabetic Discharge Activity: Increase activity as tolerated Patient Instructions: Amlodipine (By mouth), Isosorbide Mononitrate (By mouth), Atorvastatin (By mouth), Pantoprazole (By mouth), Hyperglycemia, Acute Kidney Injury (DC), CHF Stoplight Discharge Date/Time: 01/07/20 15:31 Discharge Attestations Time Spent in Discharge Care*: greater than 30 min Specific Discharge Activities: Specific discharge activities: educating patient, discussing with correctional case manager/social workers/dc planners, documenting/other paperwork and evaluating patient/reviewing data Status at Discharge: Cognitive status at discharge: cognitively intact, Behavioral status at discharge: cooperative, Overall status at discharge: patient is progressing back to baseline Quality Metrics Clinical Quality Measures During this hospital stay, did patient experience: None Coding Level of Care Code 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 [facility] Fwd Exam Comprehensive Diagnoses Acute kidney injury N17.9 Takotsubo cardiomyopathy I51.81 Diabetes E11.42; Z79.4 Diabetes mellitus complication detail: with polyneuropathy Diabetes mellitus complication status: with neurologic complications Diabetes mellitus fci insulin use: with fci use Diabetes mellitus type: type 2 Left arm pain M79.602 Depression F32.9 Depression Type: unspecified Chronic kidney disease, stage 3 N18.3 ANA (obstructive sleep apnea) G47.33 GERD (gastroesophageal reflux disease) K21.9 Esophagitis presence: esophagitis presence not specified Hypertension I10 Hypertension type: unspecified Hypercholesteremia E78.00 Vomiting R11.2 Nausea presence: with nausea Vomiting Intractability: intractable Vomiting type: unspecified Diastolic CHF I50.32 Heart failure chronicity: chronic
[2020-01-07 13:24] VITALS: BP 152/72; PULSE 73; RESP 7
[2020-01-07 13:49] VITALS: BP 122/60; PULSE 71; RESP 18; O2SAT 95
[2020-01-07 14:28] VITALS: BP 122/60; PULSE 71; RESP 18; TEMP 36.6; O2SAT 95
[2020-01-07] MEDS: acetaminophen 325 mg Tablet 650 MG PO (14:33)
--- NOTE | 2020-01-07 15:32 | PC.NURSE ---
Patient discharged home at this time, Discharge instruction provided and explained; patient new medications delivered to bedside and education provided; patient verbalized understanding of all instructions given. IV discontinued cath intact min bleeding noted dressing placed. Patient assisted via wheel chair by staff to private vehicle with discharge instructions, medications and all other belongings in hand.
== END 2020-01-07 15:31 | disposition home or self-care (01) ==
LOC: ER 22:15 → CSU 01-05 07:12
PROVIDERS: Emergency Medicine; Internal Medicine; Admitting Provider Hospitalist; PCP Family Medicine; Visit Provider Family Medicine
DX: R11.12 Projectile vomiting (principal); M79.602 Pain in left arm; R79.89 Other specified abnormal findings of blood chemistry; E11.42 Type 2 diabetes mellitus with diabetic polyneuropathy; Z79.4 Long term (current) use of insulin; E78.00 Pure hypercholesterolemia, unspecified; E11.22 Type 2 diabetes mellitus with diabetic chronic kidney disease; I13.0 Hypertensive heart and chronic kidney disease with heart failure and stage 1 through stage 4 chronic kidney disease, or unspecified chronic kidney disease; N18.3 Chronic kidney disease, stage 3 (moderate); I50.32 Chronic diastolic (congestive) heart failure; G47.33 Obstructive sleep apnea (adult) (pediatric); F32.9 Major depressive disorder, single episode, unspecified; K21.9 Gastro-esophageal reflux disease without esophagitis; Z79.82 Long term (current) use of aspirin; Z82.49 Family history of ischemic heart disease and other diseases of the circulatory system
CPT/HCPCS: 12345; 36415; 36416; 70450; 71045; 80048; 80053; 80061; 81001; 81003; 82550; 82553; 82962; 83036; 83735; 84100; 84443; 84484; 85025; 85610; 93005; 93306; 93880; 96360; 96361; 96372; 96375; 99283; G0378; J0360; J1644; J1815; J2405; J7040

== ENCOUNTER 2020-01-11 17:39 | Emergency (ER) | payer MEDICARE, SELFPAY ==
[2020-01-11 17:40] VITALS: BMI 37.5
--- NOTE | 2020-01-11 17:40 | XRR_ITS ---
PROCEDURE INFORMATION: Exam: XR Abdomen, 2 Views Exam date and time: 01/11/2020 7:00 PM Age: 74 years old Clinical indication: Constipation TECHNIQUE: Imaging protocol: XR of the abdomen. Views: 2 Views. COMPARISON: CT abdomen pelvis wo con [id number] 08/13/2018 3:36 PM FINDINGS: Heart/Mediastinum: The heart size is upper normal. Lungs: Consolidation and/or effusion in the left lung base which obscures the diaphragm. The right lung is clear. Gastrointestinal tract: Moderate stool in the colon. There are a few loops of gas filled small bowel in the mid abdomen measuring up to 3.5 cm diameter. Intraperitoneal space: No visible pneumoperitoneum. Bones/joints: Unremarkable for age. XR/XR acute abdomen series [id number] IMPRESSION: 1. Consolidation and/or effusion in the left lung base. 2. Moderate stool in the colon could indicate constipation in the right clinical setting. 3. Mild dilatation of the small bowel could indicate mild ileus or enteritis.
--- NOTE | 2020-01-11 17:42 | W.ED.ABDPA2 ---
HPI - Abdominal Pain General: Chief Complaint: Abdominal Pain Stated Complaint: ABD PAIN Time Seen by Provider: 01/11/20 17:40 Source: patient Mode of arrival: ambulatory Limitations: no limitations History of Present Illness: HPI narrative: 74-year-old female comes in today for complaints of no bowel movement since last Monday. Patient appears well. Patient appears in no acute distress. Patient has not taken any medication to help her have a bowel movement. Patient does have diabetes and was recently discharged on the for her hyperglycemia and hypertension. 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; s/p toe amputations due to diabetic foot infections -poorly controlled, A1c-13.3 -accuchecks, ISS, scheduled insulin; titrate as needed for optimal BG control -consistent carb diet as tolerated Diabetic neuropathy Diastolic CHF -Echo: EF=60%, G1DD, no RWMA, mild pulmonary HTN, mild , mild TR, trace MR -no acute exacerbation GERD (gastroesophageal reflux disease) -on PPI and carafate Hypercholesteremia -on statin -lipid panel noted Hypertension -initially presented with hypertensive urgency, now resolved -continue oral antihypertensives; off Lisinopril due to renal impairment ANA (obstructive sleep apnea) does not wear cpap by choice Takotsubo cardiomyopathy -had extensive workup done in [facility] in [place] in 06/2019; records reviewed -Echo with EF=43%, LVH, noted distal septal, apical and anterolateral hypokinesia/apical ballooning consistent with Takotsubo cardiomyopathy; mild MR. No mention of stress testing or cardiac cath. Records in chart -noted elevated troponins with no significant delta; unlikely to be acute process -telemetry monitoring -Echo: EF=60%, G1DD, no RWMA, mild pulmonary HTN, mild , mild TR, trace MR -may need outpatient stress testing once records reviewed -continue ASA, statin, BB Transient cerebral ischemia Venous insufficiency (chronic) (peripheral) Surgical History (Updated 01/04/20 @ 22:14 by Irina Moss MD) 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 History of appendectomy History of bladder suspension procedure History of cataract surgery History of cholecystectomy History of drainage of abscess left vulvar/perineal area History of hernia repair History of surgery on arm left arm, due to extravasation History of total hysterectomy Family History (Updated 01/04/20 @ 22:19 by Irina Moss MD) Father CAD (coronary artery disease) by report, she never knew him Social History (Updated 01/04/20 @ 22:23 by Irina Moss MD) Smoking and tobacco status: never smoked Alcohol intake: never Caregiver/support person: No Household members: none Marital status: / Physical Exam Const: COMMON NORMALS: no acute distress and patient oriented x3 GENERAL APPEARANCE: cooperative HENMT: COMMON NORMALS: normocephalic and Normal external nose present HEAD & SCALP: normal to inspection and normocephalic NOSE: Normal external nose present MOUTH: Normal oral and palatal mucosa present Eye: GENERAL EYE: appearance normal, both eyes and all related structures Neck/C-Spine: COMMON NORMALS: full ROM Chest: COMMONS NORMALS: normal inspection of the chest Resp: COMMON NORMALS: normal respiratory effort EFFORT & INSPECTION: Yes able to speak in complete sentences Cardio: COMMON NORMALS: regular rate and regular rhythm RATE: regular rate RHYTHM: regular rhythm GI: COMMON NORMALS: Soft to palpation and non-tender AUSCULTATION: Yes Hyperactive bowel sounds present PALPATION: Yes Soft to palpation Back/Pelvis: COMMON NORMALS: thoracic and lumbar spine normal to inspection Extremity: COMMON NORMALS: normal to inspection Neuro: COMMON NORMALS: patient oriented x3 and moves all extremities Psych: COMMON NORMALS: mental status grossly normal and cooperative Skin: COMMON NORMALS: no rashes or lesions noted GENERAL SKIN EXAM: no rashes or lesions noted Course Vital Signs: Vital signs: Vital Signs Temperature 98.5 F 01/11/20 17:45 Pulse Rate 70 01/11/20 17:45 Respiratory Rate 18 01/11/20 17:45 Blood Pressure 179/95 01/11/20 17:45 Pulse Oximetry 99 01/11/20 17:45 MDM - Abdominal Pain MDM Narrative: Medical decision making narrative: Patient comes in today with complaints of constipation. Patient appears well. Patient appears in no acute distress. Exam notes hyperactive bowel sounds, mild abdominal distention. No pain on palpation of abdomen. Respirations are even lungs are clear to auscultation vital signs are normal except for some mild hypertension. Differential diagnosis includes but not limited to bowel obstruction, constipation, urinary tract infection. Acute abdominal series noted a small effusion in the left lower lung, and constipation or a mild ileus. White blood cell count was 17,000. Patient has some mild renal dysfunction with a creatinine 1.6. Patient was given 2 fleets enemas with good results in the ER. Patient be treated for urinary tract infection with 1 g Rocephin and cephalexin to follow. Reviewed exam with patient recommendations for follow-up and further treatment. Patient reports understanding agreed to plan. Lab Data: Labs: Lab Results 01/11/20 01/11/20 01/11/20 Range/Units 18:25 18:25 19:25 WBC 17.2 H (4.0-10.0) 10^3/ uL RBC 4.29 (4.1-5.3) 10^6/u L Hgb 11.6 (11.5-15.3) g/dL Hct 37.7 (37.0-47.0) % MCV 87.9 (81-99) fL MCH 27.0 L (28.0-34.0) pg MCHC 30.8 (30.0-36.0) g/dL RDW 15.0 (12.1-15.1) % Plt Count 400 (130-400) 10^3/c mm MPV 11.5 H (7.4-10.4) fL Neut % (Auto) 71.1 % Lymph % (Auto) 16.8 % Gordon % (Auto) 9.5 % Eos % (Auto) 1.2 % Baso % (Auto) 0.7 % Neut # (Auto) 12.25 H (1.8-7.7) 10^3/u L Lymph # (Auto) 2.9 (0.8-4.8) 10^3/u L Gordon # (Auto) 1.6 H (0.2-0.9) 10^3/u L Eos # (Auto) 0.2 (0.0-0.8) 10^3/u L Baso # (Auto) 0.1 (0.0-0.1) 10^3/u L Nucleated RBC % (a uto) 0 % Nucleated RBCs # 0.0 /100WBC Sodium 141 (136-145) mmol/L Potassium 4.6 (3.5-5.1) mmol/L Chloride 108 H (98-107) mmol/L Carbon Dioxide 25 (22-29) mmol/L Anion Gap 12.6 (5-19) BUN 41 H (8-23) mg/dL Creatinine 1.6 H (0.5-0.9) mg/dL Glucose 85 (65-115) mg/dL Calculated Osmolal ity 289 (285-295) mOsm/k g Calcium 9.1 (8.5-10.5) mg/dL Total Bilirubin 0.3 (0.15-1.2) mg/dL AST 18 (0-32) U/L ALT 19 (0-33) U/L Alkaline Phosphata se 62 (35-105) IU/L Total Protein 6.2 L (6.6-8.7) g/dL Albumin 3.7 (3.5-5.2) g/dL Globulin 2.5 (1.3-4.6) g/dL Lipase 31 (13-60) U/L Urine Color Yellow (Yellow) Urine Appearance Cloudy (CLEAR) Urine pH 6 (5-7) Ur Specific Gravit y 1.015 (1.005-1.030) Urine Protein 3+ H (Negative) Urine Glucose (UA) Norm (Normal) Urine Ketones Negative (Negative) Urine Blood 2+ H (Negative) Urine Nitrate Negative (Negative) Urine Bilirubin Neg (NEGATIVE) Urine Urobilinogen Norm (Negative) mg/dL Ur Leukocyte Ciera ase 1+ H (Negative) Urine RBC 0-4 H (0-2) /hpf Urine WBC 80-100 H (0-5) /hpf Ur Squamous Epith Cells 0-4 H (0-5) Amorphous Sediment Not Reportable Urine Bacteria 4+ H (NONE) Discharge Plan Discharge Patient Disposition: Home, Self-Care Clinical Impression: Acute UTI Constipation Qualifiers: Constipation type: unspecified constipation type Qualified Code(s): K59.00 - Constipation, unspecified Condition: Stable Prescriptions: New cephalexin 500 mg capsule 500 mg PO TID 7 Days Qty: 21 RF: 0 Miralax 17 gram/dose powder 17 gm PO BID PRN (Reason: constipation) Qty: 510 RF: 0 No Action aspirin 81 mg tablet,chewable 81 mg PO DAILY RF: 0 nitroglycerin 0.4 mg tablet, sublingual 0.4 mg SUBLINGUAL Q5M PRN (Reason: chest pains) RF: 0 sucralfate [Carafate] 1 gram tablet 1 gm PO QID RF: 0 sertraline 50 mg tablet 50 mg PO Q24H 30 Days Qty: 30 RF: 5 carvedilol 25 mg tablet 25 mg PO BID 90 Days Qty: 180 RF: 3 Novolog Flexpen U-100 Insulin 100 unit/mL (3 mL) insulin pen See Rx Instructions .ROUTE .COMPLEX RF: 0 Levemir FlexTouch U-100 Insuln 100 unit/mL (3 mL) insulin pen 20 unit SUBCUT BEDTIME RF: 0 atorvastatin 40 mg Tablet 40 mg PO BEDTIME Qty: 30 RF: 0 isosorbide mononitrate 30 mg Tablet Extended Release 24 Hr 30 mg PO DAILY Qty: 30 RF: 0 amlodipine 5 mg Tablet 5 mg PO DAILY Qty: 30 RF: 0 pantoprazole 40 mg Tablet,Delayed Release (Dr/Ec) 40 mg PO DAILY Qty: 30 RF: 0 Humalog KwikPen Insulin 100 unit/mL insulin pen 10 unit SUBCUT TID 30 Days Qty: 15 RF: 11 Discharge Orders: Discharge Order (Routine); Ordered 01/11/20 Ordered By: Abe Elder Referrals: Osito Owens MD [Primary Care Provider] - Discharge Diet: Usual diet Discharge Activity: Increase activity as tolerated Activity Restrictions/Additional Instructions: Drink plenty of fluids. Use medications as directed. Use mag citrate as a laxative. Use MiraLAX twice a day until good bowel movements and return to normal bowel function. Take antibiotic for urinary tract infection. Try to ambulate and be active to help regulate your bowels. Follow-up with primary care in 1 week. Return to the ER for blood in stool or worsening symptoms. 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
[2020-01-11 17:45] VITALS: BP 179/95; PULSE 70; RESP 18; TEMP 36.9; O2SAT 99
[2020-01-11 18:30] LABS: Basophils # 0.1 10^3/uL (0.0-0.1); Basophils % 0.7 %; Eosinophils # 0.2 10^3/uL (0.0-0.8); Eosinophils % 1.2 %; Hematocrit 37.7 % (37.0-47.0); Hemoglobin 11.6 g/dL (11.5-15.3); Lymphocytes # 2.9 10^3/uL (0.8-4.8); Lymphocytes % 16.8 %; Mean Corpuscular HGB Conc 30.8 g/dL (30.0-36.0); Mean Corpuscular Volume 87.9 fL (81-99); Mean Platelet Volume 11.5 fL (7.4-10.4); Monocytes # 1.6 10^3/uL (0.2-0.9); Monocytes % 9.5 %; Neutrophils # 12.25 10^3/uL (1.8-7.7); Neutrophils % 71.1 %; Nucleated Red Blood Cells % 0 %; Platelet Count 400 10^3/cmm (130-400); Red Blood Count 4.29 10^6/uL (4.1-5.3); White Blood Count 17.2 10^3/uL (4.0-10.0)
[2020-01-11 18:44] LABS: Alanine Aminotransferase 19 U/L (0-33); Albumin Level 3.7 g/dL (3.5-5.2); Alkaline Phosphatase 62 IU/L (35-105); Anion Gap 12.6 (5-19); Aspartate Amino Transferase 18 U/L (0-32); Blood Urea Nitrogen 41 mg/dL (8-23); Calcium 9.1 mg/dL (8.5-10.5); Carbon Dioxide 25 mmol/L (22-29); Chloride 108 mmol/L (98-107); Globulin 2.5 g/dL (1.3-4.6); Glucose 85 mg/dL (65-115); Lipase 31 U/L (13-60); Osmolality Calculated 289 mOsm/kg (285-295); Potassium 4.6 mmol/L (3.5-5.1); Sodium 141 mmol/L (136-145); Total Bilirubin 0.3 mg/dL (0.15-1.2); Total Protein 6.2 g/dL (6.6-8.7)
[2020-01-11] MEDS: Fleet Enema 133 mL Enema 266 ML PR (20:05)
[2020-01-11 20:20] LABS: Urine Appearance Cloudy (CLEAR); Urine Color Yellow (Yellow)
[2020-01-11 20:21] LABS: Add Urine Microscopic? YES; Bilirubin Urine Neg (NEGATIVE); Blood Urine 2+ (Negative); Glucose Urine UA Norm (Normal); Ketones Urine Negative (Negative); Leukocyte Esterase Urine 1+ (Negative); Nitrate Urine Negative (Negative); Protein Urine 3+ (Negative); Specific Gravity, Urine 1.015 (1.005-1.030); Urobilinogen Urine Norm (Negative); pH Urine 6 (5-7)
[2020-01-11 20:22] LABS: RBC Urine 0-4 /hpf (0-2); WBC Urine 80-100 /hpf (0-5)
[2020-01-11 20:23] LABS: Add Urine Culture? Yes; Bacteria Urine 4+; Squamous Epithelial Cell Urine 0-4 (0-5)
[2020-01-11] MEDS: cefTRIAXone 1,000 mg SDV 1000 MG IM (21:17)
[2020-01-11] MEDS: magnesium citrate Btl 296 mL PO (21:23)
--- NOTE | 2020-01-11 21:24 | PC.NURSE ---
ENEMA GIVEN WITH GOOD RESULTS. PT STATES FEELING BETTER. TOWELS AND WASHCLOTHES PROVIDED FOR PT'S PERICARE.
[2020-01-11 21:32] VITALS: BP 138/57; PULSE 94; RESP 18; O2SAT 98
== END 2020-01-11 21:43 | disposition home or self-care (01) ==
PROVIDERS: Emergency Provider Nurse Practitioner Family; PCP Family Medicine
DX: N39.0 Urinary tract infection, site not specified (principal); K59.00 Constipation, unspecified; Z79.82 Long term (current) use of aspirin; Z79.4 Long term (current) use of insulin; E11.22 Type 2 diabetes mellitus with diabetic chronic kidney disease; I13.0 Hypertensive heart and chronic kidney disease with heart failure and stage 1 through stage 4 chronic kidney disease, or unspecified chronic kidney disease; N18.3 Chronic kidney disease, stage 3 (moderate); I50.30 Unspecified diastolic (congestive) heart failure; E11.40 Type 2 diabetes mellitus with diabetic neuropathy, unspecified
CPT/HCPCS: 12345; 74022; 80053; 81001; 81003; 83690; 85025; 87077; 87086; 87186; 96372; 99282; 99283; J0696

== ENCOUNTER 2020-03-10 12:41 | Outpatient (RCR) | payer MEDICARE, SELFPAY | END 2020-03-25 23:59 | disposition home or self-care (01) | LOC: SPT 12:41 | PROVIDERS: PCP Family Medicine; Visit Provider Family Medicine | DX: Z47.89 Encounter for other orthopedic aftercare (principal); Z89.429 Acquired absence of other toe(s), unspecified side | CPT/HCPCS: 97161 ==

== ENCOUNTER 2020-05-05 15:17 | Observation (INO) | payer MEDICARE, SELFPAY ==
[2020-05-05] VITALS (13 sets, daily range): BP systolic 157–229; BP diastolic 62–105; PULSE 63–75; RESP 16–18; TEMP 36.7–36.8; O2SAT 92–97; BMI 36.6
--- NOTE | 2020-05-05 15:37 | XR_ITS ---
WS: [id number] XR chest 1V portable [id number] REASON FOR EXAM: dyspnea FINDINGS: Increased opacity in the left lower chest compared to previous examination of 01/04/2020. This appears to be a combination of lung consolidation and pleural effusion. There is minimal blunting of the right costophrenic angle. XR/XR chest 1V portable [id number] IMPRESSION: Consolidation in the left lower lobe with left pleural effusion occurring since the previous examination of 01/04/2020. Findings would be most compatible with a pneumonitis and effusion.
--- NOTE | 2020-05-05 15:40 | W.ED.SOB ---
Documented by User: Nimesh Ramos DO 05/08/20 06:18 HPI - SOB/Dyspnea General: Chief Complaint: Shortness of Breath/Dyspnea Stated Complaint: SOB AND WEAKNESS Time Seen by Provider: 05/05/20 15:21 History of Present Illness: HPI Narrative: 74 yo female presents with complaints of shortness of breath, cough mild amount of diarrhea orthopnea along with swelling in her legs. She has noticed some increased anasarca on the pannus as well. She has had the shortness of breath for several weeks but it became worse over the last couple of days and also included some diarrhea. She has not had any chest pain she has not had a productive cough at all. She notes the shortness of breath is is worse with exertion and being supine and better with sitting up and resting. MD elicited complaint: shortness of breath Pertinent past history: congestive heart failure and diabetes Onset (ago): week(s) Timing: constant Severity: moderate Exacerbating factors: lying flat and exertion Relieving factors: rest and upright position Known history of: congestive heart failure and diabetes Associated symptoms: Reports chest congestion, cough, lightheadedness and orthopnea; Deny abdominal pain, chest pain, diaphoresis, dizziness, fever(s), hemoptysis, myalgias, nausea, palpitations, paresthesias, polydipsia, polyuria, rash, sense of impending doom, syncope or vomiting Treatment prior to arrival: none Review of Systems Const: Denies: fever(s) or diaphoresis ENMT: Denies: throat pain, ear or mastoid pain, nasal discharge or nasal congestion Card: Reports: lightheadedness and orthopnea; Denies: chest pain, palpitations or syncope Resp: Reports: chest congestion; Denies: hemoptysis GI: Denies: abdominal pain, nausea or vomiting : Denies: flank pain, difficulty voiding, dysuria, urinary frequency or urinary urgency Skin/Breast: Denies: rash or pruritus Neuro: Denies: dizziness Endo: Denies: polyuria or polydipsia PFSH ED PFSH: Medical History Chronic kidney disease, stage 3 -Nephrology f/u as outpatient Depression 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; s/p toe amputations due to diabetic foot infections Diabetic neuropathy Diastolic CHF -Echo: EF=60%, G1DD, no RWMA, mild pulmonary HTN, mild , mild TR, trace MR GERD (gastroesophageal reflux disease) -on PPI and carafate Hypercholesteremia -on statin Hypertension ANA (obstructive sleep apnea) does not wear cpap by choice Takotsubo cardiomyopathy -had extensive workup done in [facility] in [place] in 06/2019; records reviewed -Echo with EF=43%, LVH, noted distal septal, apical and anterolateral hypokinesia/apical ballooning consistent with Takotsubo cardiomyopathy; mild MR. No mention of stress testing or cardiac cath. Records in chart -noted elevated troponins with no significant delta; unlikely to be acute process -telemetry monitoring -Echo: EF=60%, G1DD, no RWMA, mild pulmonary HTN, mild , mild TR, trace MR Transient cerebral ischemia Venous insufficiency (chronic) (peripheral) Surgical History 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 History of appendectomy History of bladder suspension procedure History of cataract surgery History of cholecystectomy History of drainage of abscess left vulvar/perineal area History of hernia repair History of surgery on arm left arm, due to extravasation History of total hysterectomy Family History Father CAD (coronary artery disease) by report, she never knew him Social History Smoking and tobacco status: never smoked Alcohol intake: never Caregiver/support person: No Household members: none Marital status: / Physical Exam Const: COMMON NORMALS: no acute distress GENERAL APPEARANCE: cooperative and comfortable ORIENTATION/CONSCIOUSNESS: Yes oriented to person, Yes oriented to place and Yes oriented to time HENMT: COMMON NORMALS: normocephalic, atraumatic and hearing grossly normal bilaterally HEAD & SCALP: normocephalic and atraumatic Eye: COMMON NORMALS: Equal, round and reactive pupils present, EOMs intact bilaterally, conjunctivae normal and no scleral icterus CONJUNCTIVA: Yes conjunctivae normal PUPIL: Yes Equal, round and reactive pupils present Neck/C-Spine: COMMON NORMALS: full ROM, no lymphadenopathy, supple and no JVD Lymph: LYMPHATIC: no lymphadenopathy noted and no lymphedema noted Resp: AUSCULTATION: crackles Cardio: COMMON NORMALS: no JVD, regular rate, regular rhythm and No murmurs present (Cardio) RATE: regular rate RHYTHM: regular rhythm GI: COMMON NORMALS: Soft to palpation and No hepatosplenomegaly present AUSCULTATION: Yes normoactive bowel sounds PALPATION: Yes Soft to palpation, No Tenderness to palpation present (GI), No Guarding due to palpation present (GI) and Yes No hepatosplenomegaly present Extremity: NARRATIVE EXTREMITY EXAM: 1+ edema of the lower extremities negative Homans test Neuro: SENSORIUM/ORIENTATION: Yes oriented to person, Yes oriented to place and Yes oriented to time Skin: COMMON NORMALS: no rashes or lesions noted GENERAL SKIN EXAM: no rashes or lesions noted Course Vital Signs: Vital signs: Vital Signs Temperature 97.7 F 05/08/20 04:00 Pulse Rate 68 05/08/20 04:00 Respiratory Rate 18 05/08/20 04:00 Blood Pressure 186/82 05/08/20 04:00 Pulse Oximetry 94 05/08/20 04:00 MDM - SOB/Dyspnea MDM Narrative: Medical decision making narrative: Care turned over to Dr. Pan at change of shift Lab Data: Labs: Lab Results 05/05/20 05/05/20 05/05/20 Range/Units 16:35 16:35 16:35 WBC 9.6 (4.0-10.0) 10^3/ uL RBC 4.07 L (4.1-5.3) 10^6/u L Hgb 11.0 L (11.5-15.3) g/dL Hct 36.2 L (37.0-47.0) % MCV 88.9 (81-99) fL MCH 27.0 L (28.0-34.0) pg MCHC 30.4 (30.0-36.0) g/dL RDW 15.6 H (12.1-15.1) % Plt Count 439 H (130-400) 10^3/c mm MPV 10.7 H (7.4-10.4) fL Neut % (Auto) 59.7 % Lymph % (Auto) 25.0 % Faulkner % (Auto) 10.4 % Eos % (Auto) 3.4 % Baso % (Auto) 1.1 % Neut # (Auto) 5.73 (1.8-7.7) 10^3/u L Lymph # (Auto) 2.4 (0.8-4.8) 10^3/u L Faulkner # (Auto) 1.0 H (0.2-0.9) 10^3/u L Eos # (Auto) 0.3 (0.0-0.8) 10^3/u L Baso # (Auto) 0.1 (0.0-0.1) 10^3/u L Nucleated RBC % (a uto) 0 % Nucleated RBCs # 0.0 /100WBC D-Dimer (0-0.59) ug/mIFE U Sodium 144 (136-145) mmol/L Potassium 4.6 (3.5-5.1) mmol/L Chloride 110 H (98-107) mmol/L Carbon Dioxide 22 (22-29) mmol/L Anion Gap 16.6 (5-19) BUN 28 H (8-23) mg/dL Creatinine 1.9 H (0.5-0.9) mg/dL GFR Calculation Not Reportable Glucose 224 H (65-115) mg/dL Calculated Osmolal ity 310 H (285-295) mOsm/k g Calcium 9.1 (8.5-10.5) mg/dL Total Bilirubin 0.2 (0.15-1.2) mg/dL AST 12 (0-32) U/L ALT 15 (0-33) U/L Alkaline Phosphata se 71 (35-105) IU/L Troponin T Baselin e 136 H* (0-10) ng/L Troponin T 120 Min pilot point (0-10) ng/L Delta Troponin T (0-10) ABS# NT-Pro-B Natriuret Pep 75636 H (0-125) pg/mL Total Protein 5.5 L (6.6-8.7) g/dL Albumin 3.5 (3.5-5.2) g/dL Globulin 2.0 (1.3-4.6) g/dL SARS-CoV-2 Ag (Rap id) (Negative) 05/05/20 05/05/20 05/05/20 Range/Units 16:35 17:09 18:34 WBC (4.0-10.0) 10^3/ uL RBC (4.1-5.3) 10^6/u L Hgb (11.5-15.3) g/dL Hct (37.0-47.0) % MCV (81-99) fL MCH (28.0-34.0) pg MCHC (30.0-36.0) g/dL RDW (12.1-15.1) % Plt Count (130-400) 10^3/c mm MPV (7.4-10.4) fL Neut % (Auto) % Lymph % (Auto) % Faulkner % (Auto) % Eos % (Auto) % Baso % (Auto) % Neut # (Auto) (1.8-7.7) 10^3/u L Lymph # (Auto) (0.8-4.8) 10^3/u L Faulkner # (Auto) (0.2-0.9) 10^3/u L Eos # (Auto) (0.0-0.8) 10^3/u L Baso # (Auto) (0.0-0.1) 10^3/u L Nucleated RBC % (a uto) % Nucleated RBCs # /100WBC D-Dimer 1.66 H (0-0.59) ug/mIFE U Sodium (136-145) mmol/L Potassium (3.5-5.1) mmol/L Chloride (98-107) mmol/L Carbon Dioxide (22-29) mmol/L Anion Gap (5-19) BUN (8-23) mg/dL Creatinine (0.5-0.9) mg/dL GFR Calculation Glucose (65-115) mg/dL Calculated Osmolal ity (285-295) mOsm/k g Calcium (8.5-10.5) mg/dL Total Bilirubin (0.15-1.2) mg/dL AST (0-32) U/L ALT (0-33) U/L Alkaline Phosphata se (35-105) IU/L Troponin T Baselin e (0-10) ng/L Troponin T 120 Min pilot point 116.9 H (0-10) ng/L Delta Troponin T -19.1 L (0-10) ABS# NT-Pro-B Natriuret Pep (0-125) pg/mL Total Protein (6.6-8.7) g/dL Albumin (3.5-5.2) g/dL Globulin (1.3-4.6) g/dL SARS-CoV-2 Ag (Rap id) Negative (Negative) Discharge Plan Discharge Patient Disposition: Admitted As Inpatient Admit Provider: Urbano Arguello Clinical Impression: Congestive heart failure Qualifiers: Heart failure type: unspecified Heart failure chronicity: acute on chronic Qualified Code(s): I50.9 - Heart failure, unspecified Condition: Stable Sign Out Sign Out Data: Patient Sign Out occurred on 05/05/20 at 18:18. Patient's care was discussed, and care was transferred from to Era Harden. 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; s/p toe amputations due to diabetic foot infections Diabetic neuropathy Diastolic CHF -Echo: EF=60%, G1DD, no RWMA, mild pulmonary HTN, mild , mild TR, trace MR GERD (gastroesophageal reflux disease) -on PPI and carafate Hypercholesteremia -on statin Hypertension ANA (obstructive sleep apnea) does not wear cpap by choice Takotsubo cardiomyopathy -had extensive workup done in [facility] in [place] in 06/2019; records reviewed -Echo with EF=43%, LVH, noted distal septal, apical and anterolateral hypokinesia/apical ballooning consistent with Takotsubo cardiomyopathy; mild MR. No mention of stress testing or cardiac cath. Records in chart -noted elevated troponins with no significant delta; unlikely to be acute process -telemetry monitoring -Echo: EF=60%, G1DD, no RWMA, mild pulmonary HTN, mild , mild TR, trace MR Transient cerebral ischemia Venous insufficiency (chronic) (peripheral) Surgical History 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 History of appendectomy History of bladder suspension procedure History of cataract surgery History of cholecystectomy History of drainage of abscess left vulvar/perineal area History of hernia repair History of surgery on arm left arm, due to extravasation History of total hysterectomy Family History Father CAD (coronary artery disease) by report, she never knew him Social History Smoking and tobacco status: never smoked Alcohol intake: never Caregiver/support person: No Household members: none Marital status: / Course Vital Signs: Vital signs: Vital Signs Temperature 97.7 F 05/08/20 04:00 Pulse Rate 68 05/08/20 04:00 Respiratory Rate 18 05/08/20 04:00 Blood Pressure 186/82 05/08/20 04:00 Pulse Oximetry 94 05/08/20 04:00 MDM - SOB/Dyspnea MDM Narrative: Medical decision making narrative: The case was reviewed with Dr. Kim, he agrees to admit. He reviewed the patient's labs and move forward from there. Lab Data: Attestation: I reviewed the patient's lab results. Labs: Lab Results 05/05/20 05/05/20 05/05/20 Range/Units 16:35 16:35 16:35 WBC 9.6 (4.0-10.0) 10^3/ uL RBC 4.07 L (4.1-5.3) 10^6/u L Hgb 11.0 L (11.5-15.3) g/dL Hct 36.2 L (37.0-47.0) % MCV 88.9 (81-99) fL MCH 27.0 L (28.0-34.0) pg MCHC 30.4 (30.0-36.0) g/dL RDW 15.6 H (12.1-15.1) % Plt Count 439 H (130-400) 10^3/c mm MPV 10.7 H (7.4-10.4) fL Neut % (Auto) 59.7 % Lymph % (Auto) 25.0 % Faulkner % (Auto) 10.4 % Eos % (Auto) 3.4 % Baso % (Auto) 1.1 % Neut # (Auto) 5.73 (1.8-7.7) 10^3/u L Lymph # (Auto) 2.4 (0.8-4.8) 10^3/u L Faulkner # (Auto) 1.0 H (0.2-0.9) 10^3/u L Eos # (Auto) 0.3 (0.0-0.8) 10^3/u L Baso # (Auto) 0.1 (0.0-0.1) 10^3/u L Nucleated RBC % (a uto) 0 % Nucleated RBCs # 0.0 /100WBC D-Dimer (0-0.59) ug/mIFE U Sodium 144 (136-145) mmol/L Potassium 4.6 (3.5-5.1) mmol/L Chloride 110 H (98-107) mmol/L Carbon Dioxide 22 (22-29) mmol/L Anion Gap 16.6 (5-19) BUN 28 H (8-23) mg/dL Creatinine 1.9 H (0.5-0.9) mg/dL GFR Calculation Not Reportable Glucose 224 H (65-115) mg/dL Calculated Osmolal ity 310 H (285-295) mOsm/k g Calcium 9.1 (8.5-10.5) mg/dL Total Bilirubin 0.2 (0.15-1.2) mg/dL AST 12 (0-32) U/L ALT 15 (0-33) U/L Alkaline Phosphata se 71 (35-105) IU/L Troponin T Baselin e 136 H* (0-10) ng/L Troponin T 120 Min pilot point (0-10) ng/L Delta Troponin T (0-10) ABS# NT-Pro-B Natriuret Pep 61902 H (0-125) pg/mL Total Protein 5.5 L (6.6-8.7) g/dL Albumin 3.5 (3.5-5.2) g/dL Globulin 2.0 (1.3-4.6) g/dL SARS-CoV-2 Ag (Rap id) (Negative) 05/05/20 05/05/20 05/05/20 Range/Units 16:35 17:09 18:34 WBC (4.0-10.0) 10^3/ uL RBC (4.1-5.3) 10^6/u L Hgb (11.5-15.3) g/dL Hct (37.0-47.0) % MCV (81-99) fL MCH (28.0-34.0) pg MCHC (30.0-36.0) g/dL RDW (12.1-15.1) % Plt Count (130-400) 10^3/c mm MPV (7.4-10.4) fL Neut % (Auto) % Lymph % (Auto) % Faulkner % (Auto) % Eos % (Auto) % Baso % (Auto) % Neut # (Auto) (1.8-7.7) 10^3/u L Lymph # (Auto) (0.8-4.8) 10^3/u L Faulkner # (Auto) (0.2-0.9) 10^3/u L Eos # (Auto) (0.0-0.8) 10^3/u L Baso # (Auto) (0.0-0.1) 10^3/u L Nucleated RBC % (a uto) % Nucleated RBCs # /100WBC D-Dimer 1.66 H (0-0.59) ug/mIFE U Sodium (136-145) mmol/L Potassium (3.5-5.1) mmol/L Chloride (98-107) mmol/L Carbon Dioxide (22-29) mmol/L Anion Gap (5-19) BUN (8-23) mg/dL Creatinine (0.5-0.9) mg/dL GFR Calculation Glucose (65-115) mg/dL Calculated Osmolal ity (285-295) mOsm/k g Calcium (8.5-10.5) mg/dL Total Bilirubin (0.15-1.2) mg/dL AST (0-32) U/L ALT (0-33) U/L Alkaline Phosphata se (35-105) IU/L Troponin T Baselin e (0-10) ng/L Troponin T 120 Min pilot point 116.9 H (0-10) ng/L Delta Troponin T -19.1 L (0-10) ABS# NT-Pro-B Natriuret Pep (0-125) pg/mL Total Protein (6.6-8.7) g/dL Albumin (3.5-5.2) g/dL Globulin (1.3-4.6) g/dL SARS-CoV-2 Ag (Rap id) Negative (Negative) EKG Data^: EKG 1: Attestation: I personally reviewed and interpreted this EKG as follows: EKG Interpretation Date: 05/05/20 EKG interpretation time: 19:15 Interpretation: Normal sinus rhythm at 66 beats a minute, normal axis, first-degree AV block, normal QTC, no other acute ST-T wave changes. Discharge Plan Discharge Patient Disposition: Admitted As Inpatient Admit Provider: Urbano Arguello Clinical Impression: Congestive heart failure Qualifiers: Heart failure type: unspecified Heart failure chronicity: acute on chronic Qualified Code(s): I50.9 - Heart failure, unspecified Condition: Stable Sign Out Sign Out Data: Patient Sign Out occurred on 05/05/20 at 18:18. Patient's care was discussed, and care was transferred from to Era Singletaryney. Coding Level of Care Code ED Assembly Line Supervisor for g Fwd Exam Comprehensive
[2020-05-05 16:44] LABS: Basophils # 0.1 10^3/uL (0.0-0.1); Basophils % 1.1 %; Eosinophils # 0.3 10^3/uL (0.0-0.8); Eosinophils % 3.4 %; Hematocrit 36.2 % (37.0-47.0); Lymphocytes # 2.4 10^3/uL (0.8-4.8); Mean Corpuscular HGB Conc 30.4 g/dL (30.0-36.0); Mean Corpuscular Volume 88.9 fL (81-99); Mean Platelet Volume 10.7 fL (7.4-10.4); Monocytes % 10.4 %; Neutrophils # 5.73 10^3/uL (1.8-7.7); Neutrophils % 59.7 %; Nucleated Red Blood Cells % 0 %; Platelet Count 439 10^3/cmm (130-400); Red Blood Count 4.07 10^6/uL (4.1-5.3); Red Cell Distribution Width 15.6 % (12.1-15.1); White Blood Count 9.6 10^3/uL (4.0-10.0)
[2020-05-05] MEDS: metoprolol tartrate 1 mg/1 mL SDV 5 mL 5 MG IV (16:45)
[2020-05-05] MEDS: levofloxacin-dextrose 5 % 750 MG/150 ML PREMIX 100 MG IV (16:45)
--- NOTE | 2020-05-05 17:37 | ECG_ITS ---
[facility] Test Date: 2020-05-05 Pat Name: Iris Rockwell Department: Room: Gender: Female Steam Conditioner Operator: : 1945 Requested By: Nimesh Marks Order Number: [id number] Coco MD: Bezty Dorantes M.D. Measurements Intervals [place] Rate: 66 P: 48 WY: 214 QRS: 49 QRSD: 99 T: 75 QT: 390 QTc: 412 Interpretive Statements SINUS RHYTHM WITH FIRST DEGREE AV BLOCK NONSPECIFIC T-WAVE ABNORMALITY Compared to ECG 01/04/2020 20:12:59 First degree AV block now present T-wave abnormality still present Electronically Signed On 05-05-2020 19:29:35 AUDIOVISUAL TECHNICIAN by Betzy Dorantes M.D. [email or web address]
[2020-05-05 17:47] LABS: Alanine Aminotransferase 15 U/L (0-33); Albumin Level 3.5 g/dL (3.5-5.2); Alkaline Phosphatase 71 IU/L (35-105); Anion Gap 16.6 (5-19); Aspartate Amino Transferase 12 U/L (0-32); Blood Urea Nitrogen 28 mg/dL (8-23); Calcium 9.1 mg/dL (8.5-10.5); Carbon Dioxide 22 mmol/L (22-29); Chloride 110 mmol/L (98-107); Glucose 224 mg/dL (65-115); Osmolality Calculated 310 mOsm/kg (285-295); Potassium 4.6 mmol/L (3.5-5.1); Sodium 144 mmol/L (136-145); Total Bilirubin 0.2 mg/dL (0.15-1.2); Total Protein 5.5 g/dL (6.6-8.7)
[2020-05-05 17:52] LABS: Troponin(5th) Baseline 136 ng/L (0-10)
[2020-05-05 18:18] LABS: NT Pro B Type Natriuretic Pept 12082 pg/mL (0-125)
[2020-05-05] MEDS: enoxaparin 100 mg/mL Syringe SUBCUT (18:50)
[2020-05-05] MEDS: hyDRALAzine 20 mg/mL INJ 1 mL 10 MG IVP (18:51)
[2020-05-05 19:01] LABS: SARS Covid-2 Antigen Negative (Negative)
--- NOTE | 2020-05-05 19:01 | PC.NURSE ---
patient report received from Dangelo web support engineer and care transferred to BETTY Kline
[2020-05-05 19:03] LABS: Troponin 5 2HR Delta -19.1 ABS# (0-10)
[2020-05-05 19:04] LABS: Troponin 5 2HR 116.9 ng/L (0-10)
[2020-05-05] MEDS: aspirin 325 mg Tablet PO (19:54)
[2020-05-05] MEDS: nitroglycerin 1 gm/inch oint Pkt 1 INCH TOPICAL (19:55)
--- NOTE | 2020-05-05 20:01 | PM.HP ---
Providers/Chief Complaint Primary Care Provider: Osito Owens MD Chief Complaint: SOB AND WEAKNESS History of Present Illness Iris Rockwell is a 74 year old female who has history of mild pulmonary hypertension, diastolic congestive heart failure preserved ejection fraction, noncompliant with CPAP/sleep apnea, came in with chief complaint of worsening shortness of breath. Patient is stating that she has been feeling short of breath for last 1 to 2 weeks, her PCP started her on Lasix 40 mg which did not relieve her symptoms at all, she started Lasix about 2 to 3 days ago, she has been experiencing orthopnea, PND, exertional shortness of breath without fever, productive cough, abdominal pain, dysuria. She is endorsing 1 episode of loose stool last night, no recent antibiotic use or abdominal pain. She does not smoke or drink alcohol. Because of worsening of her symptoms she decided to come to the hospital for further evaluation. Diagnosis in the ER revealed acute CHF exacerbation, she was given Levaquin by the ER physician for concern of pneumonia which was evident on x-ray however she does not carry any signs of inflammation nor symptoms. Of note, imaging in December also showed left-sided consolidation, pleural effusion. She was also given therapeutic dose of Lovenox in the ER. I would add diuretic regimen for her CHF and avoid antibiotics for now. Review of Systems Const: Reports: body aches, change in appetite and fatigue; Denies: fever(s) or chills Eyes: Denies: change in vision ENMT: Denies: throat pain Card: Reports: swelling of feet/ankles, dyspnea on exertion and orthopnea; Denies: chest pain Resp: Reports: dyspnea; Denies: non-productive cough GI: Reports: diarrhea; Denies: abdominal pain : Denies: flank pain Musc: Reports: muscle cramps; Denies: neck pain Skin/Breast: Reports: lesions Neuro: Denies: headache(s) Psych: Denies: anxiety Endo: Denies: polyuria Hilario/Lymph: Denies: easy bruising All/Imm: Denies: urticaria Medications/Allergies Home Medications Medication Instructions Recorded Confirmed Last Taken Type nitroglycerin 0.4 mg sublingual 0.4 mg SUBLINGUAL Q5M PRN 07/08/19 05/05/20 Unknown History tablet sertraline 50 mg tablet 50 mg PO Q24H 30 Days #30 tab 07/12/19 05/05/20 05/03/20 Rx carvedilol 25 mg tablet 25 mg PO BID 90 Days #180 tab 10/07/19 05/05/20 05/03/20 Rx Levemir FlexTouch U-100 Insuln 25 unit SUBCUT BEDTIME 01/04/20 05/05/20 05/03/20 History insulin lispro [Humalog KwikPen 10 unit SUBCUT TID 30 Days #15 ml 01/07/20 05/05/20 05/03/20 Rx Insulin] amlodipine 5 mg tablet 5 mg PO DAILY #90 tab 03/10/20 05/05/20 05/03/20 Rx Allergies Allergy/AdvReac Type Severity Reaction Status Date / Time morphine Allergy unknown Verified 05/05/20 15:31 zolpidem Allergy na Verified 05/05/20 15:31 PFSH Acute PFSH: Medical History Chronic kidney disease, stage 3 -Nephrology f/u as outpatient Depression 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; s/p toe amputations due to diabetic foot infections Diabetic neuropathy Diastolic CHF -Echo: EF=60%, G1DD, no RWMA, mild pulmonary HTN, mild , mild TR, trace MR GERD (gastroesophageal reflux disease) -on PPI and carafate Hypercholesteremia -on statin Hypertension ANA (obstructive sleep apnea) does not wear cpap by choice Takotsubo cardiomyopathy -had extensive workup done in [facility] in [place] in 06/2019; records reviewed -Echo with EF=43%, LVH, noted distal septal, apical and anterolateral hypokinesia/apical ballooning consistent with Takotsubo cardiomyopathy; mild MR. No mention of stress testing or cardiac cath. Records in chart -noted elevated troponins with no significant delta; unlikely to be acute process -telemetry monitoring -Echo: EF=60%, G1DD, no RWMA, mild pulmonary HTN, mild , mild TR, trace MR Transient cerebral ischemia Venous insufficiency (chronic) (peripheral) Surgical History 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 History of appendectomy History of bladder suspension procedure History of cataract surgery History of cholecystectomy History of drainage of abscess left vulvar/perineal area History of hernia repair History of surgery on arm left arm, due to extravasation History of total hysterectomy Family History Father CAD (coronary artery disease) by report, she never knew him Social History Smoking and tobacco status: never smoked Alcohol intake: never Caregiver/support person: No Household members: none Marital status: / Vitals/I&O/Wt Last Vital Signs Temp 98.3 F 05/05/20 15:25 Pulse 68 05/05/20 19:56 Resp 16 05/05/20 19:56 BP 191/62 05/05/20 19:56 Pulse Ox 94 05/05/20 19:56 05/05/20 05/05/20 05/05/20 06:59 14:59 22:59 Intake Total 150 / 150 Balance 150 / 150 Weight last 48 hrs Weight 99.79 kg Physical Exam Narrative: EXAM NARRATIVE: Very pleasant elderly female Currently saturating well on room air no active distress Appears stated age Clinically she looks fluid overloaded Lower symmetry edema extending up to her knees, 2+ No acute respiratory distress S1, S2, systolic murmur 2/6, Abdomen soft distended bowel sound present no signs of peritonitis, mild abdominal wall edema Bilateral breath sounds with mild rhonchi at the bases however no acute respiratory distress Appropriate mood and affect GCS 15 EOMI, PERRLA Skin does not show active gangrene ulcer or ischemic changes No neurological deficit Data : 05/05/20 16:35 05/05/20 16:35 Micro: Microbiology 05/05/20 16:37 Blood Culture - Preliminary Blood SPECIMEN COLLECTED A&P Assessment and plan (1) Acute exacerbation of CHF (congestive heart failure): Status: Acute (2) Diabetic neuropathy: Status: Chronic Qualifiers: Diabetes mellitus complication detail: diabetic polyneuropathy Diabetes mellitus type: type 2 Qualified Code(s): E11.42 - Type 2 diabetes mellitus with diabetic polyneuropathy Additional A&P Information Acute CHF exacerbation Preserved ejection fraction heart failure, Patient has not been using CPAP, has mild pulmonary hypertension, history of hypertension, I do believe these are the factors contributing in exacerbation of diastolic congestive heart failure She was taking Lasix 40 mg which was not very helpful, I would use Bumex p.o. 1 mg for now Her recent echo showed preserved ejection fraction mild , mild pulmonary arterial hypertension I would not repeat echo as it was no recent No ischemic or infarctive changes, negative delta troponin Avoid NSAIDs Hold amlodipine Left-sided pleural effusion This most likely is secondary to CHF early presentation however this finding was present in December as well, would hold off on antibiotics, patient is afebrile no cough, fever, productive cough, left lower lobe changes are secondary to pleural effusion, will follow-up with CT chest Type 2 diabetes with nephropathy and neuropathy Creatinine seems to be at baseline no acute exacerbation I would continue her sertraline Consistent carb diet, moderate sliding scale along with long-acting insulin Patient is endorsing her blood sugar stays around 200 at home Chronic kidney disease stage III: Creatinine seems to be around baseline, no acute exacerbation Full code Consistent carb diet DVT prophylaxis Heparin Patient is willing to use CPAP in order to avoid exacerbation of diastolic CHF in future Attestations Medical Necessity Statement*: Anticipating discharge in less than 48 hours currently need diuretics for CHF exacerbation, patient is willing to use CPAP, she failed outpatient Lasix therapy Time Spent in Patient Care: (>than 50% of time spent in counselling and/or direct pt care on unit). 35mins Coding Level of Care Code Acute Plastic Surgery Technician for Ivett Koo Diagnoses Acute exacerbation of CHF (congestive heart failure) I50.9 Diabetic neuropathy E11.42 Diabetes mellitus complication detail: diabetic polyneuropathy Diabetes mellitus type: type 2
--- NOTE | 2020-05-05 20:14 | CTR_ITS ---
PROCEDURE INFORMATION: Exam: CT Chest Without Contrast Exam date and time: 05/05/2020 8:44 PM Age: 74 years old Clinical indication: Shortness of breath; Additional info: Persistent left-sided consolidation since 01/03 TECHNIQUE: Imaging protocol: Computed tomography of the chest without contrast. Radiation optimization: All CT scans at this facility use at least one of these dose optimization techniques: automated exposure control; mA and/or kV adjustment per patient size (includes targeted exams where dose is matched to clinical indication); or iterative reconstruction. COMPARISON: CT chest w con* [id number] 12/01/2014 7:55 AM RADIATION DOSE METRICS: Total DLP (mGy-cm): 982.06 FINDINGS: Lungs: Minimal dependent atelectasis lung bases, left volume greater than right. No findings of active interstitial edema/pulmonary edema. Pleural space: Bilateral pleural effusions of small volume, left greater than right. Heart: Cardiomegaly. No visible pericardial effusion. Advanced 3 vessel coronary artery disease. Calcified mitral annulus. Aorta: The thoracic aorta is nonaneurysmal. Moderate arterial sclerotic disease. Lymph nodes: Stable small middle mediastinal lymph nodes since 12/01/2014. No visible evidence of active mediastinal or hilar lymphadenopathy. 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 No visible acute osseous abnormality. Soft tissues: Mild anasarca. CT/CT chest con [id number] IMPRESSION: 1. Bilateral pleural effusions of small volume, left greater than right. 2. Minimal dependent atelectasis in the lung bases. 3. Cardiomegaly. 4. Advanced 3 vessel coronary artery disease. 5. Mild anasarca. Radiation Dose CTDIVOL = (mGy): DLP = 982.06 (mGy-cm)
[2020-05-05 21:01] LABS: D Dimer 1.66 ug/mIFEU (0-0.59)
--- NOTE | 2020-05-05 21:13 | PC.NURSE ---
PATIENT BACK FROM CT
--- NOTE | 2020-05-05 21:25 | PC.NURSE ---
[facility] NO [facility]SWER AFTER BEING ON HOLD.
[2020-05-05 23:10] LABS: Troponin 5 6HR 130.8 ng/L (0-10); Troponin 5 6HR Delta -5.2 ng/L (0-12)
[2020-05-06] MEDS: sertraline 50 mg Tablet PO ×2 (00:04→23:17)
[2020-05-06] MEDS: atorvastatin 40 mg Tablet PO ×2 (00:04→21:10)
[2020-05-06] MEDS: heparin 5,000 unit/mL INJ 1 mL 5000 UNIT SUBCUT ×4 (00:05→23:17)
[2020-05-06 01:34] LABS: Glucose Point of Care 181 mg/dL (70-110)
[2020-05-06 04:00] VITALS: BP 161/75; PULSE 67; RESP 18; TEMP 36.6; O2SAT 94
[2020-05-06 04:55] LABS: Basophils # 0.1 10^3/uL (0.0-0.1); Basophils % 1.3 %; Eosinophils # 0.4 10^3/uL (0.0-0.8); Eosinophils % 4.5 %; Hematocrit 31.7 % (37.0-47.0); Hemoglobin 9.7 g/dL (11.5-15.3); Lymphocytes # 2.1 10^3/uL (0.8-4.8); Lymphocytes % 25.4 %; Mean Corpuscular HGB Conc 30.6 g/dL (30.0-36.0); Mean Corpuscular Hemoglobin 27.4 pg (28.0-34.0); Mean Corpuscular Volume 89.5 fL (81-99); Monocytes # 1.1 10^3/uL (0.2-0.9); Monocytes % 13.1 %; Neutrophils # 4.63 10^3/uL (1.8-7.7); Neutrophils % 55.5 %; Nucleated Red Blood Cells % 0 %; Platelet Count 394 10^3/cmm (130-400); Red Blood Count 3.54 10^6/uL (4.1-5.3); Red Cell Distribution Width 15.6 % (12.1-15.1); White Blood Count 8.4 10^3/uL (4.0-10.0)
[2020-05-06 05:22] LABS: Anion Gap 12.1 (5-19); Blood Urea Nitrogen 28 mg/dL (8-23); Calcium 8.5 mg/dL (8.5-10.5); Carbon Dioxide 23 mmol/L (22-29); Chloride 114 mmol/L (98-107); Glucose 88 mg/dL (65-115); Osmolality Calculated 305 mOsm/kg (285-295); Potassium 4.1 mmol/L (3.5-5.1); Sodium 145 mmol/L (136-145)
[2020-05-06 07:20] VITALS: BP 159/71; PULSE 70; RESP 24; TEMP 36.7; O2SAT 92
[2020-05-06 07:22] LABS: Glucose Point of Care 70 mg/dL (70-110)
[2020-05-06] MEDS: isosorbide mononitrate ER 30 mg Tablet PO (08:23)
[2020-05-06] MEDS: bumetanide 1 mg Tablet PO (08:23)
[2020-05-06] MEDS: carvedilol 25 mg Tablet PO ×2 (08:23→17:22)
[2020-05-06] MEDS: pantoprazole DR 40 mg Tablet PO (08:23)
[2020-05-06] MEDS: aspirin 81 mg EC Tablet PO (08:23)
--- NOTE | 2020-05-06 10:37 | PM.PN ---
Subjective Subjective: Interval history: Patient is still complaining of significant SOB particular on exertion. As well as significant swelling in both the lower extremity. Medications: Reviewed: Yes Vitals/I&O/Wt Last Vital Signs Temp 98.1 F 05/06/20 07:20 Pulse 70 05/06/20 07:20 Resp 24 H 05/06/20 07:20 BP 159/71 05/06/20 07:20 Pulse Ox 92 05/06/20 07:20 05/05/20 05/06/20 05/06/20 22:59 06:59 14:59 Intake Total 150 / 150 240 / 390 Balance 150 / 150 240 / 390 Weight last 48 hrs Weight 99.79 kg Physical Exam Const: COMMON NORMALS: patient oriented x3 HENMT: COMMON NORMALS: normocephalic, atraumatic, hearing grossly normal bilaterally and external ears normal HEAD & SCALP: normocephalic and atraumatic EXTERNAL EAR: Yes external ears normal Eye: COMMON NORMALS: no scleral icterus GENERAL EYE: appearance normal, both eyes and all related structures Chest: COMMONS NORMALS: normal inspection of the chest and normal palpation of entire chest wall CHEST: Yes Symmetrical chest wall rise Resp: COMMON NORMALS: normal respiratory effort, No retractions and No use of accessory muscles EFFORT & INSPECTION: Yes symmetric chest movement OTHER: B/L Decreased air entry, as well b/l fine Crackles in both lungs franklin predominently basal. Cardio: COMMON NORMALS: regular rate, regular rhythm, S1 normal heart sound present, S2 normal heart sound present, No gallops present (Cardio), No murmurs present (Cardio), No rub (Cardio) and Peripheral pulses 2+ throughout RATE: regular rate RHYTHM: regular rhythm HEART SOUNDS: S1 normal heart sound present and S2 normal heart sound present PERIPHERAL PULSES: Peripheral pulses 2+ throughout GI: COMMON NORMALS: Normal to inspection, nondistended, normoactive bowel sounds present, Soft to palpation, non-tender, No hepatosplenomegaly present and no masses AUSCULTATION: Yes normoactive bowel sounds PALPATION: Yes Soft to palpation and Yes No hepatosplenomegaly present RECTAL EXAM: deferred Extremity: COMMON NORMALS: no clubbing, cyanosis or edema and no pedal edema Neuro: COMMON NORMALS: patient oriented x3 Data : 05/06/20 04:36 05/06/20 04:36 Micro: Microbiology 05/05/20 22:25 Blood Culture - Preliminary Blood SPECIMEN COLLECTED 05/05/20 16:37 Blood Culture - Preliminary Blood SPECIMEN COLLECTED A&P Assessment and plan (1) Acute exacerbation of CHF (congestive heart failure): Status: Acute (2) Diabetic neuropathy: Status: Chronic Qualifiers: Diabetes mellitus type: type 2 Diabetes mellitus complication detail: diabetic polyneuropathy Qualified Code(s): E11.42 - Type 2 diabetes mellitus with diabetic polyneuropathy Additional A&P Information Acute CHF exacerbation Preserved ejection fraction heart failure, Switched bumex po 1mg to i.v today Hold amlodipine because of b/l l/e swelling Left-sided pleural effusion This most likely is secondary to CHF early presentation however this finding was present in December as well, would hold off on antibiotics, patient is afebrile no cough, fever, productive cough, left lower lobe changes are secondary to pleural effusion, will follow-up with CT chest Type 2 diabetes with nephropathy and neuropathy Creatinine seems to be at baseline no acute exacerbation I would continue her sertraline Consistent carb diet, moderate sliding scale along with long-acting insulin Patient is endorsing her blood sugar stays around 200 at home Chronic kidney disease stage III: Creatinine seems to be around baseline, no acute exacerbation Full code Consistent carb diet DVT prophylaxis Heparin Patient is willing to use CPAP in order to avoid exacerbation of diastolic CHF in future Attestations Medical Necessity Statement*: Patient needs to be in hospital for the management of HF as well as she needs I.V Diuretic. 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
[2020-05-06 11:09] LABS: Glucose Point of Care 127 mg/dL (70-110)
[2020-05-06 11:26] VITALS: BP 144/72; PULSE 60; RESP 12; TEMP 36.4; O2SAT 95
[2020-05-06 15:49] VITALS: BP 172/69; PULSE 65; RESP 16; TEMP 36.6; O2SAT 94
[2020-05-06 16:44] LABS: Glucose Point of Care 150 mg/dL (70-110)
[2020-05-06 20:00] VITALS: BP 184/78; PULSE 65; RESP 28; TEMP 36.6; O2SAT 94
[2020-05-06] MEDS: bumetanide 0.25 mg/mL SDV 10 mL 1 MG IV (21:09)
[2020-05-06 21:29] LABS: Glucose Point of Care 119 mg/dL (70-110)
[2020-05-07] VITALS: BP 175/76; PULSE 65; RESP 18; TEMP 36.8; O2SAT 95
[2020-05-07 04:00] VITALS: BP 175/73; PULSE 69; RESP 20; TEMP 36.8; O2SAT 96
[2020-05-07 06:31] LABS: Glucose Point of Care 239 mg/dL (70-110)
[2020-05-07] MEDS: heparin 5,000 unit/mL INJ 1 mL 5000 UNIT SUBCUT ×3 (06:49→23:16)
[2020-05-07 07:58] VITALS: BP 170/77; PULSE 71; RESP 18; TEMP 36.6; O2SAT 90
[2020-05-07 08:17] LABS: Basophils % 0.4 %; Hematocrit 35.4 % (37.0-47.0); Hemoglobin 10.8 g/dL (11.5-15.3); Lymphocytes % 11.4 %; Mean Corpuscular HGB Conc 30.5 g/dL (30.0-36.0); Mean Corpuscular Volume 88.5 fL (81-99); Monocytes # 0.1 10^3/uL (0.2-0.9); Monocytes % 1.2 %; Neutrophils # 7.79 10^3/uL (1.8-7.7); Neutrophils % 86.3 %; Nucleated Red Blood Cells % 0 %; Platelet Count 417 10^3/cmm (130-400); Red Cell Distribution Width 15.7 % (12.1-15.1)
[2020-05-07 08:36] LABS: Blood Urea Nitrogen 37 mg/dL (8-23); Carbon Dioxide 21 mmol/L (22-29); Chloride 108 mmol/L (98-107); Glucose 234 mg/dL (65-115); Osmolality Calculated 304 mOsm/kg (285-295); Sodium 139 mmol/L (136-145)
[2020-05-07] MEDS: carvedilol 25 mg Tablet PO ×2 (08:38→17:58)
[2020-05-07] MEDS: aspirin 81 mg EC Tablet PO (08:38)
[2020-05-07] MEDS: pantoprazole DR 40 mg Tablet PO (08:38)
[2020-05-07] MEDS: isosorbide mononitrate ER 30 mg Tablet PO (08:38)
[2020-05-07] MEDS: bumetanide 0.25 mg/mL SDV 10 mL 1 MG IV (08:39)
[2020-05-07 08:44] LABS: Anion Gap 15.1 (5-19); Potassium 5.1 mmol/L (3.5-5.1)
[2020-05-07 10:53] LABS: Glucose Point of Care 295 mg/dL (70-110)
[2020-05-07 11:25] VITALS: BP 159/79; PULSE 70; RESP 18; TEMP 36.7; O2SAT 92
[2020-05-07 15:25] VITALS: BP 180/63; PULSE 77; RESP 18; TEMP 36.5; O2SAT 92
[2020-05-07 16:55] LABS: Glucose Point of Care 198 mg/dL (70-110)
--- NOTE | 2020-05-07 18:40 | P.PN_ITS ---
Subjective Subjective: Interval history: SOB is better this am,patient reports good urine output.Has remained afebrile. Other vitals and labs have been reviewed Medications: Reviewed: Yes Vitals/I&O/Wt Last Vital Signs Temp 97.7 F 05/07/20 15:25 Pulse 77 05/07/20 15:25 Resp 18 05/07/20 15:25 BP 180/63 05/07/20 15:25 Pulse Ox 92 05/07/20 15:25 05/07/20 05/07/20 05/07/20 06:59 14:59 22:59 Intake Total 240 / 600 660 / 660 240 / 900 Output Total 1050 / 1150 650 / 650 Balance -810 / -550 240 / 250 Physical Exam Const: COMMON NORMALS: patient oriented x3 HENMT: COMMON NORMALS: normocephalic, atraumatic, hearing grossly normal bilaterally and external ears normal HEAD & SCALP: normocephalic and a traumatic EXTERNAL EAR: Yes external ears normal Eye: COMMON NORMALS: no scleral icterus GENERAL EYE: appearance normal, both eyes and all related structures Chest: COMMONS NORMALS: normal inspection of the chest and normal palpation of entire chest wall CHEST: Yes Symmetrical chest wall rise Resp: COMMON NORMALS: normal respiratory effort, No retractions, No use of accessory muscles and clear to auscultation bilaterally EFFORT & INSPECTION: Yes symmetric chest movement AUSCULTATION: clear to auscultation bilaterally OTHER: B/L Decreased air entry, as well b/l fine Crackles in both lungs franklin predominently basal. Cardio: COMMON NORMALS: regular rate, regular rhythm, S1 normal heart sound present, S2 normal heart sound present, No gallops present (Cardio), No murmurs present (Cardio), No rub (Cardio) and Peripheral pulses 2+ throughout RATE: regular rate RHYTHM: regular rhythm HEART SOUNDS: S1 normal heart sound present and S2 normal heart sound present PERIPHERAL PULSES: Peripheral pulses 2+ throughout GI: COMMON NORMALS: Normal to inspection, nondistended, normoactive bowel sounds present, Soft to palpation, non-tender, No hepatosplenomegaly present and no masses AUSCULTATION: Yes normoactive bowel sounds PALPATION: Yes Soft to palpation and Yes No hepatosplenomegaly present RECTAL EXAM: deferred Extremity: COMMON NORMALS: no clubbing, cyanosis or edema and no pedal edema Neuro: COMMON NORMALS: patient oriented x3 Data : 05/07/20 08:10 05/07/20 08:10 Micro: Microbiology 05/05/20 22:25 Blood Culture - Preliminary Blood NEGATIVE TO DATE 05/05/20 16:37 Blood Culture - Preliminary Blood NEGATIVE TO DATE A&P Assessment and plan (1) Acute exacerbation of CHF (congestive heart failure): Status: Acute (2) Diabetes: Consistent carb diet, moderate sliding scale along with long-acting insulin Status: Acute (3) Hypertension: Status: Acute (4) Diabetic neuropathy: Status: Chronic Qualifiers: Diabetes mellitus type: type 2 Diabetes mellitus complication detail: diabetic polyneuropathy Qualified Code(s): E11.42 - Type 2 diabetes mellitus with diabetic polyneuropathy Additional A&P Information Acute CHF exacerbation Preserved ejection fraction heart failure, Continue bumex 1mg i.v Hold amlodipine because of b/l l/e swelling Left-sided pleural effusion This most likely is secondary to CHF early presentation however this finding was present in December as well, would hold off on antibiotics, patient is afebrile no cough, fever, productive cough, left lower lobe changes are secondary to pleural effusion, will follow-up with CT chest diabetes neuropathy Creatinine seems to be at baseline no acute exacerbation continue her sertraline Chronic kidney disease stage III: Creatinine seems to be around baseline, no acute exacerbation Full code DVT prophylaxis Heparin Attestations Medical Necessity Statement*: Patient needs to be in hospital for the management of CHF Exacerbation Coding Level of Care Code Acute Account Support Manager for [facility] Fwd Diagnoses Acute exacerbation of CHF (congestive heart failure) I50.9 Diabetes E11.9 Hypertension I10 Diabetic neuropathy E11.42 Diabetes mellitus type: type 2 Diabetes mellitus complication detail: diabetic polyneuropathy
--- NOTE | 2020-05-07 19:16 | PC.NURSE ---
Report given to Abel BENNETT End of shift report Patient has improved in the edema in her legs and possible discharge tomorrow.
[2020-05-07 20:00] VITALS: BP 187/82; PULSE 76; RESP 20; TEMP 36.5; O2SAT 94
[2020-05-07 21:34] LABS: Glucose Point of Care 238 mg/dL (70-110)
[2020-05-07] MEDS: atorvastatin 40 mg Tablet PO (21:58)
[2020-05-07] MEDS: sertraline 50 mg Tablet PO (23:16)
[2020-05-08] VITALS: BP 160/70; PULSE 71; RESP 18; TEMP 36.5; O2SAT 92
[2020-05-08 04:00] VITALS: BP 186/82; PULSE 68; RESP 18; TEMP 36.5; O2SAT 94
[2020-05-08 05:43] LABS: Basophils % 0.1 %; Eosinophils % 0.1 %; Hematocrit 31.5 % (37.0-47.0); Hemoglobin 9.7 g/dL (11.5-15.3); Lymphocytes % 14.7 %; Mean Corpuscular HGB Conc 30.8 g/dL (30.0-36.0); Mean Corpuscular Hemoglobin 27.2 pg (28.0-34.0); Mean Corpuscular Volume 88.2 fL (81-99); Monocytes # 1.4 10^3/uL (0.2-0.9); Monocytes % 10.7 %; Neutrophils # 9.84 10^3/uL (1.8-7.7); Neutrophils % 73.5 %; Nucleated Red Blood Cells % 0 %; Platelet Count 433 10^3/cmm (130-400); Red Blood Count 3.57 10^6/uL (4.1-5.3); Red Cell Distribution Width 15.9 % (12.1-15.1); White Blood Count 13.4 10^3/uL (4.0-10.0)
[2020-05-08 06:05] LABS: Alanine Aminotransferase 13 U/L (0-33); Albumin Level 3.2 g/dL (3.5-5.2); Alkaline Phosphatase 66 IU/L (35-105); Blood Urea Nitrogen 42 mg/dL (8-23); Calcium 8.8 mg/dL (8.5-10.5); Carbon Dioxide 21 mmol/L (22-29); Chloride 109 mmol/L (98-107); Globulin 2.3 g/dL (1.3-4.6); Glucose 221 mg/dL (65-115); Magnesium 1.9 mg/dL (1.7-2.3); Osmolality Calculated 309 mOsm/kg (285-295); Sodium 141 mmol/L (136-145); Total Bilirubin 0.2 mg/dL (0.15-1.2); Total Protein 5.5 g/dL (6.6-8.7)
[2020-05-08 06:19] LABS: Anion Gap 16.1 (5-19); Aspartate Amino Transferase 41 U/L (0-32); Potassium 5.1 mmol/L (3.5-5.1)
[2020-05-08 06:34] LABS: Glucose Point of Care 221 mg/dL (70-110)
[2020-05-08 07:50] VITALS: BP 179/76; PULSE 64; RESP 16; TEMP 36.6; O2SAT 96
[2020-05-08] MEDS: heparin 5,000 unit/mL INJ 1 mL 5000 UNIT SUBCUT (11:01)
[2020-05-08] MEDS: pantoprazole DR 40 mg Tablet PO (11:02)
[2020-05-08] MEDS: aspirin 81 mg EC Tablet PO (11:02)
[2020-05-08] MEDS: carvedilol 25 mg Tablet PO (11:02)
[2020-05-08] MEDS: isosorbide mononitrate ER 30 mg Tablet PO (11:02)
[2020-05-08 11:05] LABS: Glucose Point of Care 203 mg/dL (70-110)
--- NOTE | 2020-05-08 11:50 | P.DS_ITS ---
Discharge Providers Date of Admission: 05/05/20 20:08 Date of Discharge: May 08, 2020 Attending Provider at Admission: Urbano Arguello MD Attending Provider at Discharge: Taiwo Savage MD Primary Care Provider: Osito Owens MD Diagnoses at Discharge Discharge Diagnosis (1) Acute exacerbation of CHF (congestive heart failure): Status: Resolved (2) Diabetes: Status: Chronic (3) Hypertension: Status: Chronic (4) Diabetic neuropathy: Status: Chronic Qualifiers: Diabetes mellitus complication detail: diabetic polyneuropathy Diabetes mellitus type: type 2 Qualified Code(s): E11.42 - Type 2 diabetes mellitus with diabetic polyneuropathy Reason for Visit Reason for Visit: SOB AND WEAKNESS Hospital Course Hospital Course 74 year old female who has history of mild pulmonary hypertension, diastolic congestive heart failure preserved ejection fraction, noncompliant with CPAP/sleep apnea, came in with chief complaint of worsening shortness of breath for about 1-2 weeks she was admitted for the management of Ac on Chronic exacerbation HFpEF. She was kept on I.V diuresis to which she responded well as her SOB improved significantly.At the time of discharge she was ambulating well with minimal SOB. 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 Imaging studies: CT chest wo con: 1. Bilateral pleural effusions of small volume, left greater than right. 2. Minimal dependent atelectasis in the lung bases. EKG: SINUS RHYTHM WITH FIRST DEGREE AV BLOCK NONSPECIFIC T-WAVE ABNORMALITY. 2 DEcho: ( 12/2019 ) Normal left ventricular size, systolic function and wall thickness, with no regional wall motion abnormalities. Grade I/IV diastolic dysfunction (abnormal relaxation filling pattern), normal to mildly elevated filling pressures. Left ventricular ejection fraction is estimated at 60 %. Normal right ventricular size and systolic function. Mild pulmonary hypertension, RVSP 48.2 mmHg. Thickened mitral valve. Severe mitral annular calcification. Trace mitral valve regurgitation. No mitral valve stenosis. Structurally normal trileaflet aortic valve. Mild aortic valve calcification. No aortic valve regurgitation. Mild aortic valve stenosis, mean gradient 7.9 mmHg, MICHAEL 1.9 cm squared. No change from 01/29/2019. Physical Exam Const: COMMON NORMALS: patient oriented x3 HENMT: COMMON NORMALS: normocephalic, atraumatic, hearing grossly normal bi laterally and external ears normal HEAD & SCALP: normocephalic and atraumatic EXTERNAL EAR: Yes external ears normal Eye: COMMON NORMALS: no scleral icterus GENERAL EYE: appearance normal, both eyes and all related structures Chest: COMMONS NORMALS: normal inspection of the chest and normal palpation of entire chest wall CHEST: Yes Symmetrical chest wall rise Resp: COMMON NORMALS: normal respiratory effort, No retractions, No use of accessory muscles and clear to auscultation bilaterally EFFORT & INSPECTION: Yes symmetric chest movement AUSCULTATION: clear to auscultation bilaterally Cardio: COMMON NORMALS: regular rate, regular rhythm, S1 normal heart sound present, S2 normal heart sound present, No gallops present (Cardio), No murmurs present (Cardio), No rub (Cardio) and Peripheral pulses 2+ throughout RATE: regular rate RHYTHM: regular rhythm HEART SOUNDS: S1 normal heart sound present and S2 normal heart sound present PERIPHERAL PULSES: Peripheral pulses 2+ throughout GI: COMMON NORMALS: Normal to inspection, nondistended, normoactive bowel sounds present, Soft to palpation, non-tender, No hepatosplenomegaly present and no masses AUSCULTATION: Yes normoactive bowel sounds PALPATION: Yes Soft to palpation and Yes No hepatosplenomegaly present RECTAL EXAM: deferred Extremity: NARRATIVE EXTREMITY EXAM: 2+ B/L Pitting edema present in both franklin. Neuro: COMMON NORMALS: patient oriented x3 Discharge Data Data Completed and Pending: Completed Studies During Hospitalization Category Date Time Status CT chest wo con 7 1250 Stat Cat Scan 05/05/20 20:14 Completed XR chest 1V zhanna ble [id number] Stat Exams 05/05/20 15:37 Completed Pending at discharge Category Date Time Status Blood Culture Sta t Lab 05/05/20 22:25 Results CBC Auto Diff [Co mplete Blood Count w/Auto] AM LABS Lab 05/09/20 04:00 Ordered CBC Auto Diff [Co mplete Blood Count w/Auto] AM LABS Lab 05/10/20 04:00 Ordered CMP [Comprehensiv e Metabolic Panel] AM LABS Lab 05/09/20 04:00 Ordered CMP [Comprehensiv e Metabolic Panel] AM LABS Lab 05/10/20 04:00 Ordered Magnesium AM LABS Lab 05/09/20 04:00 Ordered Magnesium AM LABS Lab 05/10/20 04:00 Ordered Labs from last 24 hours 05/08/20 05/08/20 05/08/20 11:02 06:10 05:12 WBC RBC Hgb Hct MCV MCH MCHC RDW Plt Count MPV Neut % (Auto) Lymph % (Auto) [place] % (Auto) Eos % (Auto) Baso % (Auto) Neut # (Auto) Lymph # (Auto) [place] # (Auto) Eos # (Auto) Baso # (Auto) Nucleated RBC % (a uto) Nucleated RBCs # Sodium 141 Potassium 5.1 Chloride 109 H Carbon Dioxide 21 L Anion Gap 16.1 BUN 42 H Creatinine 2.2 H GFR Calculation Not Reportable Glucose 221 H POC Glucose 203 221 Calculated Osmolal ity 309 H Calcium 8.8 Magnesium 1.9 Total Bilirubin 0.2 AST 41 H ALT 13 Alkaline Phosphata se 66 Total Protein 5.5 L Albumin 3.2 L Globulin 2.3 05/08/20 05/07/20 05/07/20 05:12 21:12 16:51 WBC 13.4 H RBC 3.57 L Hgb 9.7 L Hct 31.5 L MCV 88.2 MCH 27.2 L MCHC 30.8 RDW 15.9 H Plt Count 433 H MPV 12.0 H Neut % (Auto) 73.5 Lymph % (Auto) 14.7 [place] % (Auto) 10.7 Eos % (Auto) 0.1 Baso % (Auto) 0.1 Neut # (Auto) 9.84 H Lymph # (Auto) 2.0 [place] # (Auto) 1.4 H Eos # (Auto) 0.0 Baso # (Auto) 0.0 Nucleated RBC % (a uto) 0 Nucleated RBCs # 0.0 Sodium Potassium Chloride Carbon Dioxide Anion Gap BUN Creatinine GFR Calculation Glucose POC Glucose 238 198 Calculated Osmolal ity Calcium Magnesium Total Bilirubin AST ALT Alkaline Phosphata se Total Protein Albumin Globulin Vitals: Last Vital Signs Temp 97.8 F 05/08/20 07:50 Pulse 64 05/08/20 07:50 Resp 16 05/08/20 07:50 BP 179/76 05/08/20 07:50 Pulse Ox 96 05/08/20 07:50 Discharge Plan Discharge Patient Disposition: Home Condition: Stable Prescriptions: New Lasix 40 mg tablet 40 mg PO DAILY Qty: 30 RF: 0 hydrochlorothiazide 12.5 mg capsule 12.5 mg PO DAILY Qty: 30 RF: 0 Continued nitroglycerin 0.4 mg tablet, sublingual 0.4 mg SUBLINGUAL Q5M PRN (Reason: chest pains) RF: 0 sertraline 50 mg tablet 50 mg PO Q24H 30 Days Qty: 30 RF: 5 carvedilol 25 mg tablet 25 mg PO BID 90 Days Qty: 180 RF: 3 Levemir FlexTouch U-100 Insuln 100 unit/mL (3 mL) insulin pen 25 unit SUBCUT BEDTIME RF: 0 insulin lispro [Humalog KwikPen Insulin] 100 unit/mL insulin pen 10 unit SUBCUT TID 30 Days Qty: 15 RF: 11 Discontinued amlodipine 5 mg tablet 5 mg PO DAILY Qty: 90 RF: 1 Discharge Orders: Discharge Order (Routine); Ordered 05/08/20 Ordered By: Taiwo Savage Referrals: Osito Owens MD [Primary Care Provider] - 05/11/20 11:30 am Loulou Neff MD [Physician] - 1 week (Call on Monday to make an appoitment to be seen in a week.) Discharge Diet: Low Salt Discharge Activity: Resume usual activity Patient Instructions: Furosemide (By mouth), Heart Failure (DC), Diabetes Mellitus Type 2 in Adults (DC), Diabetic Neuropathy (DC), Chronic Hypertension (DC), CHF Stoplight Discharge Attestations Time Spent in Discharge Care*: greater than 30 min Specific Discharge Activities: educating patient, educating and/or supporting family/caregiver, discussing with pcp/other providers, discussing with pillowcase folder/social workers/dc planners, documenting/other paperwork and evaluating patient/reviewing data Status at Discharge: Cognitive status at discharge: cognitively intact , Behavioral status at discharge: cooperative , Quality Metrics Clinical Quality Measures During this hospital stay, did patient experience: None Coding Level of Care Code Acute Tree Surgeon for [facility] Fwd Diagnoses Acute exacerbation of CHF (congestive heart failure) I50.9 Diabetes E11.9 Hypertension I10 Diabetic neuropathy E11.42 Diabetes mellitus complication detail: diabetic polyneuropathy Diabetes mellitus type: type 2
[2020-05-08 14:11] VITALS: BP 179/76; PULSE 64; RESP 16; TEMP 36.6; O2SAT 96
== END 2020-05-08 13:30 | disposition home or self-care (01) ==
LOC: ER 20:42 → MEDSURG 05-06 08:25
PROVIDERS: Family Medicine; Internal Medicine; Admitting Provider Psychiatry & Neurology Psychiatry; Emergency Provider Emergency Medicine; PCP Family Medicine; Visit Provider Internal Medicine
DX: I13.0 Hypertensive heart and chronic kidney disease with heart failure and stage 1 through stage 4 chronic kidney disease, or unspecified chronic kidney disease (principal); I50.33 Acute on chronic diastolic (congestive) heart failure; N18.30 Chronic kidney disease, stage 3 unspecified; E11.22 Type 2 diabetes mellitus with diabetic chronic kidney disease; E11.42 Type 2 diabetes mellitus with diabetic polyneuropathy; E11.51 Type 2 diabetes mellitus with diabetic peripheral angiopathy without gangrene; E11.21 Type 2 diabetes mellitus with diabetic nephropathy; F32.9 Major depressive disorder, single episode, unspecified; K21.9 Gastro-esophageal reflux disease without esophagitis; E78.00 Pure hypercholesterolemia, unspecified; G47.33 Obstructive sleep apnea (adult) (pediatric); I27.20 Pulmonary hypertension, unspecified; Z91.19 Patient's noncompliance with other medical treatment and regimen; Z79.4 Long term (current) use of insulin; Z86.73 Personal history of transient ischemic attack (TIA), and cerebral infarction without residual deficits; Z89.429 Acquired absence of other toe(s), unspecified side
CPT/HCPCS: 12345; 36415; 36416; 71045; 71250; 80048; 80053; 82962; 83735; 83880; 84484; 85025; 85378; 87040; 87426; 93005; 94762; 96365; 96366; 96367; 96372; 96375; 99283; 99285; G0378; J0360; J1644; J1650; J1815; J1956; J2930; J3490

== ENCOUNTER → 2020-06-23 14:50 | Outpatient (BNVA) | payer MEDICARE, SELFPAY | PROVIDERS: PCP Family Medicine; Visit Provider Family Medicine | DX: E11.42 Type 2 diabetes mellitus with diabetic polyneuropathy (principal); N17.9 Acute kidney failure, unspecified; Z79.4 Long term (current) use of insulin; Z86.39 Personal history of other endocrine, nutritional and metabolic disease; I87.2 Venous insufficiency (chronic) (peripheral); N18.32 Chronic kidney disease, stage 3b | CPT/HCPCS: 80053; 83036; 84443; 85025 ==

== ENCOUNTER → 2020-07-06 14:45 | Outpatient (BNVA) | payer MEDICARE, SELFPAY | PROVIDERS: PCP Family Medicine; Visit Provider Family Medicine | DX: F06.31 Mood disorder due to known physiological condition with depressive features (principal); E11.42 Type 2 diabetes mellitus with diabetic polyneuropathy; I10 Essential (primary) hypertension; I87.2 Venous insufficiency (chronic) (peripheral); N17.9 Acute kidney failure, unspecified; Z79.4 Long term (current) use of insulin | CPT/HCPCS: 80048 ==

== ENCOUNTER 2020-09-15 12:45 | Inpatient (IN) | payer MEDICARE, SELFPAY ==
[2020-09-15] VITALS (17 sets, daily range): BP systolic 147–199; BP diastolic 66–108; PULSE 59–110; RESP 12–29; TEMP 37; O2SAT 93–100; BMI 37.5
--- NOTE | 2020-09-15 12:52 | XRR_ITS ---
PROCEDURE INFORMATION: Exam: XR Chest Exam date and time: 09/15/2020 1:07 PM Age: 74 years old Clinical indication: Dyspnea. CHF. TECHNIQUE: Imaging protocol: XR of the chest Views: 1 view. COMPARISON: CT chest [facility] [id number] 05/05/2020 9:05 PM FINDINGS: Lungs: There is opacity in the mid and lower left chest likely reflecting consolidation and effusion. There is mild patchy opacity at the right base. Pleural spaces: No pneumothorax. Heart/Mediastinum: The cardiac silhouette is unchanged. No gross evidence of pneumomediastinum. Bones/joints: No gross fracture. XR/XR chest 1V portable [id number] IMPRESSION: Cardiomegaly with left pleural effusion and possible mild edema. Consolidation in the mid and lower left chest may reflect atelectasis or pneumonia. There is mild patchy opacity at the right base.
--- NOTE | 2020-09-15 12:52 | ECG_ITS ---
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 Measurements Intervals [place] Rate: 65 P: 45 OR: 219 QRS: 33 QRSD: 101 T: 83 QT: 416 QTc: 435 Interpretive Statements SINUS RHYTHM WITH FIRST DEGREE AV BLOCK NONSPECIFIC T-WAVE ABNORMALITY Compared to ECG 05/05/2020 19:15:58 No significant changes Electronically Signed On 09-15-2020 20:19:46 CDT by Betzy Dorantes M.D. [email or web address]
--- NOTE | 2020-09-15 13:25 | W.ED.GENADLT ---
HPI - General Adult General: Chief complaint: General Medical Stated complaint: SOB Time Seen by Provider: 09/15/20 12:48 History of Present Illness: HPI narrative: The patient is a 74-year-old female recently diagnosed with CHF and placed on Lasix 40 mg daily. She comes to the ER complaining of shortness of breath and swelling in her legs. She says since she started Lasix she has lost 15 pounds however the swelling is still severe and over the past couple weeks her shortness of breath has become worse and today even more so. She also admits tightness over her anterior chest wall. Associated symptoms: Reports chest pain and dyspnea; Deny confusion, headache(s), rash or palpitations Review of Systems General: Reports: 10 or more systems reviewed and unremarkable except in HPI and below Const: Denies: fatigue Eyes: Denies: change in vision, blurry vision or eye redness ENMT: Denies: throat pain, swelling of lips/tongue, ear or mastoid pain or nasal congestion Card: Reports: chest pain; Denies: palpitations, irregular heart rhythm, edema, dyspnea on exertion or orthopnea Resp: Reports: dyspnea; Denies: productive cough or non-productive cough GI: Denies: abdominal pain, diarrhea or GI cramping : Denies: flank pain, difficulty voiding, urinary frequency or urinary urgency Musc: Denies: neck pain, back pain, extremity pain, joint pain, joint redness, limited range of motion or muscle weakness Skin/Breast: Denies: rash, pruritus, erythema, skin pain or skin tenderness Neuro: Denies: headache(s), numbness in extremities, weakness in extremities, sensory changes, difficulty walking, dizziness, confusion or Slurred speech present Psych: Denies: anxiety or depression Endo: Denies: polyuria All/Imm: Denies: urticaria, throat swelling or tongue swelling PFSH ED PFSH: Medical History Acute exacerbation of CHF (congestive heart failure) Chronic kidney disease, stage 3 -Nephrology f/u as outpatient Congestive heart failure Depression 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; s/p toe amputations due to diabetic foot infections Diabetes Diabetic neuropathy Diastolic CHF -Echo: EF=60%, G1DD, no RWMA, mild pulmonary HTN, mild , mild TR, trace MR GERD (gastroesophageal reflux disease) -on PPI and carafate Hypercholesteremia -on statin Hypertension Hypertension ANA (obstructive sleep apnea) does not wear cpap by choice Takotsubo cardiomyopathy -had extensive workup done in [facility] in [place] in 06/2019; records reviewed -Echo with EF=43%, LVH, noted distal septal, apical and anterolateral hypokinesia/apical ballooning consistent with Takotsubo cardiomyopathy; mild MR. No mention of stress testing or cardiac cath. Records in chart -noted elevated troponins with no significant delta; unlikely to be acute process -telemetry monitoring -Echo: EF=60%, G1DD, no RWMA, mild pulmonary HTN, mild , mild TR, trace MR Transient cerebral ischemia Venous insufficiency (chronic) (peripheral) Surgical History 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 History of appendectomy History of bladder suspension procedure History of cataract surgery History of cholecystectomy History of drainage of abscess left vulvar/perineal area History of hernia repair History of surgery on arm left arm, due to extravasation History of total hysterectomy Family History Father CAD (coronary artery disease) by report, she never knew him Social History Smoking and tobacco status: never smoked Alcohol intake: never Caregiver/support person: No Household members: none Marital status: / Physical Exam Const: COMMON NORMALS: no acute distress, average body habitus, patient oriented x3, no limitations, healthy appearing, alert and well nourished GENERAL APPEARANCE: cooperative, comfortable, well kempt, well developed and anxious ORIENTATION/CONSCIOUSNESS: Yes awake, Yes oriented to person, Yes oriented to place and Yes oriented to time HENMT: COMMON NORMALS: normocephalic, external ears normal and Normal external nose present HEAD & SCALP: normal to inspection and normocephalic NOSE: Normal external nose present EXTERNAL EAR: Yes external ears normal MOUTH: Normal oral and palatal mucosa present THROAT: posterior oropharynx normal Eye: COMMON NORMALS: Equal, round and reactive pupils present and EOMs intact bilaterally GENERAL EYE: appearance normal, both eyes and all related structures PUPIL: Yes Equal, round and reactive pupils present Neck/C-Spine: COMMON NORMALS: full ROM, no lymphadenopathy, no meningeal signs and no JVD GENERAL: Yes normal visual inspection Lymph: LYMPHATIC: no lymphadenopathy noted Chest: COMMONS NORMALS: normal inspection of the chest and normal palpation of entire chest wall Resp: COMMON NORMALS: normal respiratory effort, No retractions, No use of accessory muscles and percussion normal EFFORT & INSPECTION: Yes able to speak in complete sentences AUSCULTATION: diminished lung sounds bilateral PERCUSSION: percussion normal Cardio: COMMON NORMALS: no JVD, regular rate, regular rhythm, S1 normal heart sound present, S2 normal heart sound present and Peripheral pulses 2+ throughout RATE: regular rate RHYTHM: regular rhythm HEART SOUNDS: S1 normal heart sound present and S2 normal heart sound present PERIPHERAL PULSES: Peripheral pulses 2+ throughout GI: COMMON NORMALS: Normal to inspection, nondistended, normoactive bowel sounds present, Soft to palpation, non-tender and no masses INSPECTION: Yes normal to inspection PALPATION: Yes Soft to palpation : COMMON NORMALS: Yes no CVA tenderness BLADDER/KIDNEY EXAM: Yes no CVA tenderness Back/Pelvis: COMMON NORMALS: no CVA tenderness, thoracic and lumbar spine normal to inspection, no thoracic nor lumbar tenderness and thoraco-lumbar ROM normal Extremity: COMMON NORMALS: normal to inspection, full ROM, capillary refill normal, no joint enlargement and no pedal edema GENERAL: Yes normal exam except as noted Neuro: COMMON NORMALS: patient oriented x3, CN's II-XII intact bilaterally, moves all extremities, no focal motor deficits, no sensory deficits noted and gait normal SENSORIUM/ORIENTATION: Yes alert, Yes oriented to person, Yes oriented to place and Yes oriented to time MENINGEAL SIGNS: Yes no meningeal signs Psych: COMMON NORMALS: mental status grossly normal, Normal thought process present, cooperative, normal affect and speech normal APPEARANCE: Yes well kempt ATTITUDE: Yes calm SPEECH: Yes normal speech THOUGHT PROCESS: Normal thought process present Skin: COMMON NORMALS: no rashes or lesions noted GENERAL SKIN EXAM: no rashes or lesions noted Course Vital Signs: Vital signs: Vital Signs Temperature 98.6 F 09/15/20 12:48 Pulse Rate 63 09/15/20 18:42 Respiratory Rate 12 09/15/20 18:42 Blood Pressure 154/74 09/15/20 18:42 Pulse Oximetry 93 09/15/20 18:42 MDM - General Adult MDM Narrative: Medical decision making narrative: Patient came in short of breath with elevated BNP and peripheral edema severely. Chest x-ray also showed pulmonary edema. She was given IV Lasix and a Jesus was placed because she has trouble getting out of bed. She has chronic kidney disease as well and elevated troponin. It appears to be around her baseline though it is of elevated. 2-hour troponin was nearly the same level indicating unlikely an DE but possibly stress from her CHF. Her pressure had been severely elevated. It was resistant to hydralazine and clonidine with only minimal improvement. Nitro-Bid was added which improved her pressure moderately. Discussed with Dr. Granados who accepts for admission. Lab Data: Labs: Lab Results 09/15/20 09/15/20 09/15/20 Range/Units 13:48 13:48 13:48 WBC 7.3 (4.0-10.0) 10^3/ uL RBC 4.19 (4.1-5.3) 10^6/u L Hgb 11.0 L (11.5-15.3) g/dL Hct 36.4 L (37.0-47.0) % MCV 86.9 (81-99) fL MCH 26.3 L (28.0-34.0) pg MCHC 30.2 (30.0-36.0) g/dL RDW 16.4 H (12.1-15.1) % Plt Count 395 (130-400) 10^3/c mm MPV 11.0 H (7.4-10.4) fL Neut % (Auto) 57.4 % Lymph % (Auto) 26.3 % Nicollet % (Auto) 11.0 % Eos % (Auto) 3.3 % Baso % (Auto) 1.7 % Neut # (Auto) 4.17 (1.8-7.7) 10^3/u L Lymph # (Auto) 1.9 (0.8-4.8) 10^3/u L Nicollet # (Auto) 0.8 (0.2-0.9) 10^3/u L Eos # (Auto) 0.2 (0.0-0.8) 10^3/u L Baso # (Auto) 0.1 (0.0-0.1) 10^3/u L Nucleated RBC % (a uto) 0 % Nucleated RBCs # 0.0 /100WBC D-Dimer 1.23 H (0-0.59) ug/mIFE U Sodium Cancelled Potassium Cancelled Chloride Cancelled Carbon Dioxide Cancelled Anion Gap Cancelled BUN Cancelled Creatinine Cancelled GFR Calculation Cancelled Glucose Cancelled POC Glucose (70-110) mg/dL Calculated Osmolal ity Cancelled Calcium Cancelled Total Bilirubin Cancelled AST Cancelled ALT Cancelled Alkaline Phosphata se Cancelled Troponin T Baselin e (0-10) ng/L Troponin T 120 Min ely shoshone (0-10) ng/L Delta Troponin T (0-10) ABS# NT-Pro-B Natriuret Pep Cancelled Total Protein Cancelled Albumin Cancelled Globulin Cancelled Urine Color (Yellow) Urine Appearance (CLEAR) Urine pH (5-7) Ur Specific Gravit y (1.005-1.030) Urine Protein (Negative) Urine Glucose (UA) (Normal) Urine Ketones (Negative) Urine Blood (Negative) Urine Nitrate (Negative) Urine Bilirubin (Negative) Urine Urobilinogen (Negative) mg/dL Ur Leukocyte Ciear ase (Negative) Urine RBC (0-2) /hpf Urine WBC (0-5) /hpf Ur Squamous Epith Cells (0-5) /hpf Amorphous Sediment /hpf Urine Bacteria (NONE) /hpf 09/15/20 09/15/20 09/15/20 Range/Units 13:48 13:56 15:29 WBC (4.0-10.0) 10^3/ uL RBC (4.1-5.3) 10^6/u L Hgb (11.5-15.3) g/dL Hct (37.0-47.0) % MCV (81-99) fL MCH (28.0-34.0) pg MCHC (30.0-36.0) g/dL RDW (12.1-15.1) % Plt Count (130-400) 10^3/c mm MPV (7.4-10.4) fL Neut % (Auto) % Lymph % (Auto) % Nicollet % (Auto) % Eos % (Auto) % Baso % (Auto) % Neut # (Auto) (1.8-7.7) 10^3/u L Lymph # (Auto) (0.8-4.8) 10^3/u L Nicollet # (Auto) (0.2-0.9) 10^3/u L Eos # (Auto) (0.0-0.8) 10^3/u L Baso # (Auto) (0.0-0.1) 10^3/u L Nucleated RBC % (a uto) % Nucleated RBCs # /100WBC D-Dimer (0-0.59) ug/mIFE U Sodium Potassium Chloride Carbon Dioxide Anion Gap BUN Creatinine GFR Calculation Glucose POC Glucose 163 H (70-110) mg/dL Calculated Osmolal ity Calcium Total Bilirubin AST ALT Alkaline Phosphata se Troponin T Baselin e 129 H* (0-10) ng/L Troponin T 120 Min ely shoshone 125.9 H (0-10) ng/L Delta Troponin T -3.1 L (0-10) ABS# NT-Pro-B Natriuret Pep Total Protein Albumin Globulin Urine Color (Yellow) Urine Appearance (CLEAR) Urine pH (5-7) Ur Specific Gravit y (1.005-1.030) Urine Protein (Negative) Urine Glucose (UA) (Normal) Urine Ketones (Negative) Urine Blood (Negative) Urine Nitrate (Negative) Urine Bilirubin (Negative) Urine Urobilinogen (Negative) mg/dL Ur Leukocyte Ciera ase (Negative) Urine RBC (0-2) /hpf Urine WBC (0-5) /hpf Ur Squamous Epith Cells (0-5) /hpf Amorphous Sediment /hpf Urine Bacteria (NONE) /hpf 09/15/20 09/15/20 Range/Units 15:29 16:05 WBC (4.0-10.0) 10^3/ uL RBC (4.1-5.3) 10^6/u L Hgb (11.5-15.3) g/dL Hct (37.0-47.0) % MCV (81-99) fL MCH (28.0-34.0) pg MCHC (30.0-36.0) g/dL RDW (12.1-15.1) % Plt Count (130-400) 10^3/c mm MPV (7.4-10.4) fL Neut % (Auto) % Lymph % (Auto) % Nicollet % (Auto) % Eos % (Auto) % Baso % (Auto) % Neut # (Auto) (1.8-7.7) 10^3/u L Lymph # (Auto) (0.8-4.8) 10^3/u L Nicollet # (Auto) (0.2-0.9) 10^3/u L Eos # (Auto) (0.0-0.8) 10^3/u L Baso # (Auto) (0.0-0.1) 10^3/u L Nucleated RBC % (a uto) % Nucleated RBCs # /100WBC D-Dimer (0-0.59) ug/mIFE U Sodium 140 Potassium 4.6 Chloride 109 H Carbon Dioxide 22 Anion Gap 13.6 BUN 31 H Creatinine 2.2 H GFR Calculation Not Reportable Glucose 148 H POC Glucose (70-110) mg/dL Calculated Osmolal ity 299 H Calcium 9.0 Total Bilirubin 0.3 AST 12 ALT 11 Alkaline Phosphata se 63 Troponin T Baselin e (0-10) ng/L Troponin T 120 Min ely shoshone (0-10) ng/L Delta Troponin T (0-10) ABS# NT-Pro-B Natriuret Pep 61730 H Total Protein 6.2 L Albumin 3.3 L Globulin 2.9 Urine Color Straw (Yellow) Urine Appearance Hazy A (CLEAR) Urine pH 5 (5-7) Ur Specific Gravit y 1.020 (1.005-1.030) Urine Protein 3+ H (Negative) Urine Glucose (UA) 1+ (Normal) Urine Ketones Negative (Negative) Urine Blood Neg (Negative) Urine Nitrate Negative (Negative) Urine Bilirubin Neg (Negative) Urine Urobilinogen Norm (Negative) mg/dL Ur Leukocyte Ciera ase Negative (Negative) Urine RBC 0-4 H (0-2) /hpf Urine WBC 15-25 H (0-5) /hpf Ur Squamous Epith Cells 0-4 H (0-5) /hpf Amorphous Sediment 1+ /hpf Urine Bacteria 4+ H (NONE) /hpf Discharge Plan Discharge Patient Disposition: Admitted As Inpatient Admit Provider: Kim Granados Clinical Impression: Acute kidney injury, Acute exacerbation of CHF (congestive heart failure), CKD (chronic kidney disease), Hypoxia Condition: Stable Coding Level of Care Code ED Clerical Transcriber for Chg Fwd Exam Comprehensive
[2020-09-15 14:08] LABS: Glucose Point of Care 163 mg/dL (70-110)
[2020-09-15 14:16] LABS: Basophils # 0.1 10^3/uL (0.0-0.1); Basophils % 1.7 %; Eosinophils # 0.2 10^3/uL (0.0-0.8); Eosinophils % 3.3 %; Hematocrit 36.4 % (37.0-47.0); Lymphocytes # 1.9 10^3/uL (0.8-4.8); Lymphocytes % 26.3 %; Mean Corpuscular HGB Conc 30.2 g/dL (30.0-36.0); Mean Corpuscular Hemoglobin 26.3 pg (28.0-34.0); Mean Corpuscular Volume 86.9 fL (81-99); Monocytes # 0.8 10^3/uL (0.2-0.9); Neutrophils # 4.17 10^3/uL (1.8-7.7); Neutrophils % 57.4 %; Nucleated Red Blood Cells % 0 %; Platelet Count 395 10^3/cmm (130-400); Red Blood Count 4.19 10^6/uL (4.1-5.3); Red Cell Distribution Width 16.4 % (12.1-15.1); White Blood Count 7.3 10^3/uL (4.0-10.0)
[2020-09-15 14:24] LABS: D Dimer 1.23 ug/mIFEU (0-0.59)
[2020-09-15] MEDS: FUROsemide 10 mg/mL SDV 4mL 40 MG IVP (14:30)
[2020-09-15] MEDS: levofloxacin-dextrose 5 % 750 MG/150 ML PREMIX 100 MG IV (14:31)
[2020-09-15] MEDS: hyDRALAzine 20 mg/mL INJ 1 mL 10 MG IVP (14:31)
[2020-09-15 14:37] LABS: Troponin(5th) Baseline 129 ng/L (0-10)
--- NOTE | 2020-09-15 14:52 | ECG_ITS ---
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 Measurements Intervals Tyler Rate: 66 P: 56 ID: [id number] QRS: 30 QRSD: 98 T: 121 QT: 396 QTc: 416 Interpretive Statements SINUS RHYTHM WITH FIRST DEGREE AV BLOCK NONSPECIFIC ST & T-WAVE ABNORMALITY Compared to ECG 09/15/2020 12:56:03 No significant changes Electronically Signed On 09-15-2020 20:24:11 CDT by Betzy Dorantes M.D. [id number]
[2020-09-15 16:12] LABS: Alanine Aminotransferase 11 U/L (0-33); Albumin Level 3.3 g/dL (3.5-5.2); Alkaline Phosphatase 63 IU/L (35-105); Anion Gap 13.6 (5-19); Aspartate Amino Transferase 12 U/L (0-32); Blood Urea Nitrogen 31 mg/dL (8-23); Carbon Dioxide 22 mmol/L (22-29); Chloride 109 mmol/L (98-107); Globulin 2.9 g/dL (1.3-4.6); Glucose 148 mg/dL (65-115); NT Pro B Type Natriuretic Pept 28435 pg/mL (0-125); Osmolality Calculated 299 mOsm/kg (285-295); Potassium 4.6 mmol/L (3.5-5.1); Sodium 140 mmol/L (136-145); Total Bilirubin 0.3 mg/dL (0.15-1.2); Total Protein 6.2 g/dL (6.6-8.7)
[2020-09-15 16:24] LABS: Add Urine Microscopic? YES; Bilirubin Urine Neg (Negative); Blood Urine Neg (Negative); Glucose Urine UA 1+ (Normal); Ketones Urine Negative (Negative); Leukocyte Esterase Urine Negative (Negative); Nitrate Urine Negative (Negative); Protein Urine 3+ (Negative); Urine Appearance Hazy (CLEAR); Urine Color Straw (Yellow); Urobilinogen Urine Norm (Negative); pH Urine 5 (5-7)
[2020-09-15 16:25] LABS: Amorphous Sediment Urine 1+ /hpf; Bacteria Urine 4+ /hpf; RBC Urine 0-4 /hpf (0-2); Squamous Epithelial Cell Urine 0-4 /hpf (0-5); WBC Urine 15-25 /hpf (0-5)
[2020-09-15 16:26] LABS: Add Urine Culture? Yes
[2020-09-15] MEDS: cloNIDine 0.1 mg Tablet 0.2 MG PO (16:27)
[2020-09-15 17:30] LABS: Troponin 5 2HR 125.9 ng/L (0-10); Troponin 5 2HR Delta -3.1 ABS# (0-10)
[2020-09-15] MEDS: nitroglycerin 1 gm/inch oint Pkt 0.5 INCH TOPICAL (17:45)
--- NOTE | 2020-09-15 17:57 | P.HP_ITS ---
Providers/Chief Complaint Admitting Physician: Kim Granados MD Primary Care Provider: Osito Owens MD Chief Complaint: SOB History of Present Illness Iris Rockwell is a 74 year old female with PMH including CHF, Takusubo cardiomyopathy, persistent left pleural effusion presenting with progressively worsening dyspnea over the past month, along with increasing LE swelling. Her lasix was recently readjusted from 40mg BID to 80mg BID following which lost approximately 15 pounds weight, however dyspnea and LE swelling did not improve. Orthopnea+. Reported worseing dyspnea over the past 5-6 days for which she presented to ER, noted to be saturating late 80s on RA, has new 02 requirement today of 2lpm NC. Reports a past h/o Takosubo cardiomyopathy diagnosed at [facility] in [facility] in Jun 2019 shortly after demise of her . EF 45% at the time with apical ballooning. [place] [facility] [place] LVEF 60%, no RWMAs, gr 1 diastolic dysfunction. She has been on carvedilol and aldactone since Jun 2019. Reportedly nuclear stress test and angiogram were perfromed at the time and were negative for ischemia, however per review of PMH, this data is N/A from prior records. Diagnostics today show elevated BNP, CXR with left sided pleural effusion ,p ersistent since at least Apr 2020, cr at 2.2, at baseline, mild anemia. Troponins elevated at ~100, however noted same range from 12/2019 and with negative serial deltas today. Reports anterior chest wall pain over past several months, unrelated to exertion, no specific relieving factors, left >right. Denies cough, palpitations, active chest pain currently. EKG without acute ST-T wave changes today. Review of Systems General: Reports: 10 or more systems reviewed and unremarkable except in HPI and below Const: Denies: fever(s), chills or body aches Eyes: Denies: change in vision, blurry vision or photophobia ENMT: Denies: throat pain, enlarged tonsils, odynophagia or nasal congestion Card: Reports: swelling of feet/ankles and dyspnea on exertion; Denies: chest pain, palpitations, irregular heart rhythm, edema, lightheadedness, pre-syncope or orthopnea Resp: Reports: dyspnea; Denies: productive cough, non-productive cough, wheezing, stridor, pain on inspiration, change in phlegm color, hemoptysis or chest congestion GI: Denies: abdominal pain, nausea, vomiting, hematemesis, coffee ground emesis, dysphagia, heartburn, diarrhea, constipation, GI cramping, change in stool character, hematochezia or melena : Denies: flank pain, difficulty voiding, dysuria, urinary frequency, urinary urgency, urinary hesitancy or hematuria Musc: Denies: neck pain, back pain, extremity pain, joint swelling, joint warmth or deformity Neuro: Denies: headache(s), numbness in extremities, weakness in extremities, sensory changes, difficulty walking, frequent falls, dizziness, vertigo, behavioral changes, Slurred speech present or seizure-like activity Psych: Denies: anxiety, depression, suicidal ideation or homicidal ideation Endo: Denies: polyuria, polydipsia, tired all the time, cold intolerance or hot flashes Hilario/Lymph: Denies: easy bruising or easy bleeding Medications/Allergies Home Medications Medication Instructions Recorded Confirmed Last Taken Type nitroglycerin 0.4 mg sublingual 0.4 mg SUBLINGUAL Q5M PRN 07/08/19 09/15/20 Unknown History tablet Levemir FlexTouch U-100 Insuln 25 unit SUBCUT BEDTIME@2100 01/04/20 09/15/20 09/14/20 History insulin lispro [Humalog KwikPen 10 unit SUBCUT TID 30 Days #15 ml 01/07/20 09/15/20 05/03/20 Rx Insulin] sertraline 50 mg tablet 50 mg PO Q24H 30 Days #30 tab 07/06/20 09/15/20 09/14/20 Rx ondansetron HCl 4 mg tablet 4 mg PO Q8H PRN #30 tab 07/07/20 09/15/20 Unknown Rx carvedilol 25 mg PO BID@09/15/20 09/15/20 09/14/20 History furosemide [Lasix] 40 mg PO DAILY@09/15/20 09/15/20 09/14/20 History spironolactone 25 mg PO DAILY@09/15/20 09/15/20 09/14/20 History Allergies Allergy/AdvReac Type Severity Reaction Status Date / Time morphine Allergy unknown Verified 09/02/20 11:24 zolpidem Allergy na Verified 09/02/20 11:24 PFSH Acute PFSH: Medical History Acute exacerbation of CHF (congestive heart failure) Chronic kidney disease, stage 3 -Nephrology f/u as outpatient Congestive heart failure Depression 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; s/p toe amputations due to diabetic foot infections Diabetes Diabetic neuropathy Diastolic CHF -Echo: EF=60%, G1DD, no RWMA, mild pulmonary HTN, mild , mild TR, trace MR GERD (gastroesophageal reflux disease) -on PPI and carafate Hypercholesteremia -on statin Hypertension Hypertension ANA (obstructive sleep apnea) does not wear cpap by choice Takotsubo cardiomyopathy -[facility] [place] [facility]; records reviewed -Echo with EF=43%, LVH, noted distal septal, apical and anterolateral hypokinesia/apical ballooning consistent with Takotsubo cardiomyopathy; mild MR. No mention of stress testing or cardiac cath. Records in chart -noted elevated troponins with no significant delta; unlikely to be acute process -telemetry monitoring -Echo: EF=60%, G1DD, no RWMA, mild pulmonary HTN, mild , mild TR, trace MR Transient cerebral ischemia Venous insufficiency (chronic) (peripheral) Surgical History 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 History of appendectomy History of bladder suspension procedure History of cataract surgery History of cholecystectomy History of drainage of abscess left vulvar/perineal area History of hernia repair History of surgery on arm left arm, due to extravasation History of total hysterectomy Family History Father CAD (coronary artery disease) by report, she never knew him Social History Smoking and tobacco status: never smoked Alcohol intake: never Caregiver/support person: No Household members: none Marital status: / Vitals/I&O/Wt Last Vital Signs Temp 98.6 F 03/23/21 12:48 Pulse 63 09/15/20 16:49 Resp 25 H 09/15/20 16:49 BP 188/95 09/15/20 16:49 Pulse Ox 97 09/15/20 16:49 Weight last 48 hrs Weight 102.512 kg Physical Exam Narrative: EXAM NARRATIVE: General: No acute distress, AO x3 HEENT: PERRLA, pupils bilaterally equal and reactive, pallors not present Chest: Normal vesicular breath sounds, no added sounds, equal good air entry bilaterally CVS: S1-S2 regular, no murmurs, no tachycardia, no gallops, no rubs Abdomen: Soft, nontender, no organomegaly, bowel sounds present Neuro: No focal deficits, no facial deformity, AO x3, power 5/5 in all limbs Extremities: 2+ pitting edema B/L LE Urinary Catheter Management^: Jesus: Cath Placed During This Visit: yes Urinary Catheter Date of Insertion: 09/15/20 Urinary Catheter Time of Insertion: 14:26 Data : 09/15/20 13:48 09/15/20 15:29 A&P Assessment and plan (1) Acute exacerbation of CHF (congestive heart failure): As evidenced by elevated BNP, crackles on exam and pleural effusion, LE edema lasix 60mg iv q12h monitor I/O, daily weight May be precipitated by hypertensive urgency with SBP >200 upon admission, resports at home BP ranges ~120/80 Status: Acute (2) Hypertensive urgency: s/p hydralazine 10mg IVP x 1, clonidine 0.2mg, nitrobid patch 0.5 inch patch start norvasc 10mg daily, now resume carvedilol Current BP at time of evalutaion 155/77 admit to CSU Status: Acute (3) Elevated troponin: negative delta, inpatient nursing aide acute chanegs on EKG Status: Acute (4) Pleural effusion, left: Persistent since 04/2020, less likely consolidative process underlying CT chest to evaluate for any underlying masses Status: Acute (5) CKD (chronic kidney disease): chronic, cr at baseline Status: Acute Qualifiers: Chronic kidney disease stage: unspecified stage Qualified Code(s): N18.9 - Chronic kidney disease, unspecified (6) Hypoxia: likely from CHF and pleural effusion lasix as above less likely PNA CT chest as above Status: Acute Additional A&P Information + D dimer with hypoxia: Cannot obtain CTA chest to avoid contrast injury in CKD, V/q scan may not be revealing in the presence of left pleural effusion and CHF, check LE duplex for now Attestations Medical Necessity Statement*: >2midnight anticipated for management of hyp ertensive urgency, acute on chronic CHF needing iv diuresis Coding Level of Care Code Acute Biomedical Engineering Professor for Chg Fwd Diagnoses Acute exacerbation of CHF (congestive heart failure) I50.9 Hypertensive urgency I16.0 Elevated troponin R77.8 Pleural effusion, left J90 CKD (chronic kidney disease) N18.9 Chronic kidney disease stage: unspecified stage Hypoxia R09.02
--- NOTE | 2020-09-15 19:14 | CTR_ITS ---
PROCEDURE INFORMATION: Exam: CT Chest Without Contrast; Diagnostic Exam date and time: 09/15/2020 10:30 PM Age: 74 years old Clinical indication: Shortness of breath; Patient HX: SOB with persistent pleural effusion. ; Additional info: Persisting left pleural effusion, evaluate underlying mass TECHNIQUE: Imaging protocol: Diagnostic computed tomography of the chest without contrast. Radiation optimization: All CT scans at this facility use at least one of these dose optimization techniques: automated exposure control; mA and/or kV adjustment per patient size (includes targeted exams where dose is matched to clinical indication); or iterative reconstruction. COMPARISON: CT chest con [id number] 05/05/2020 9:05 PM RADIATION DOSE METRICS: Total DLP (mGy-cm): 1087.28 FINDINGS: Lungs: See Pleural spaces finding. Pleural spaces: Stable small right pleural effusion. Small left pleural effusion which is increased slightly in size. Impression. There is compressive atelectasis in both lungs. Heart: Mild cardiomegaly. Aorta: There is moderate to severe atherosclerotic disease of the aorta and coronary arteries. Lymph nodes: Stable 1 cm anterior mediastinal lymph node. Bones/joints: Unremarkable. No acute fracture. Soft tissues: Anasarca. CT/CT chest con [id number] IMPRESSION: 1. Moderate atherosclerotic disease. 2. Mild cardiomegaly. 3. Stable small right pleural effusion. 4. Small left pleural effusion which has increased in size. 5. Compressive atelectasis in both lungs. No lung mass is identified. 6. Anasarca. Radiation Dose CTDIVOL = (mGy): DLP = 1087.28 (mGy-cm)
--- NOTE | 2020-09-15 19:14 | PC.NURSE ---
Received pt from ER to room 111-1. Pt had no c/o pain or discomfort at the present time. Pt A&OX3. Pts resp even and non-labored no distress noted or c/o sob. Pt now sitting up in bed talking on cell phone. Call light in reach. No needs voiced. Will continue to monitor.
[2020-09-15 20:27] LABS: Glucose Point of Care 242 mg/dL (70-110)
[2020-09-15] MEDS: amlodipine 10 mg Tablet PO (20:35)
[2020-09-15] MEDS: sertraline 50 mg Tablet PO (20:37)
[2020-09-15] MEDS: carvedilol 25 mg Tablet PO (20:39)
[2020-09-15 21:30] LABS: Troponin 5 6HR 127.8 ng/L (0-10); Troponin 5 6HR Delta -1.2 ng/L (0-12)
[2020-09-16] VITALS (44 sets, daily range): BP systolic 113–182; BP diastolic 49–81; PULSE 53–71; RESP 12–26; TEMP 36.2–36.8; O2SAT 88–100
[2020-09-16] MEDS: FUROsemide 10 mg/mL SDV 4mL 40 MG IVP ×2 (02:21→13:24)
[2020-09-16 04:53] LABS: Basophils # 0.1 10^3/uL (0.0-0.1); Basophils % 1.3 %; Eosinophils # 0.4 10^3/uL (0.0-0.8); Eosinophils % 5.4 %; Hematocrit 32.8 % (37.0-47.0); Hemoglobin 9.9 g/dL (11.5-15.3); Lymphocytes # 1.7 10^3/uL (0.8-4.8); Lymphocytes % 23.8 %; Mean Corpuscular HGB Conc 30.2 g/dL (30.0-36.0); Mean Corpuscular Hemoglobin 26.5 pg (28.0-34.0); Mean Corpuscular Volume 87.7 fL (81-99); Mean Platelet Volume 11.1 fL (7.4-10.4); Monocytes # 1.1 10^3/uL (0.2-0.9); Monocytes % 14.6 %; Neutrophils # 3.92 10^3/uL (1.8-7.7); Neutrophils % 54.6 %; Nucleated Red Blood Cells % 0 %; Platelet Count 346 10^3/cmm (130-400); Red Blood Count 3.74 10^6/uL (4.1-5.3); Red Cell Distribution Width 16.4 % (12.1-15.1); White Blood Count 7.2 10^3/uL (4.0-10.0)
[2020-09-16 05:19] LABS: Alanine Aminotransferase 10 U/L (0-33); Albumin Level 2.9 g/dL (3.5-5.2); Alkaline Phosphatase 55 IU/L (35-105); Anion Gap 11.3 (5-19); Aspartate Amino Transferase 15 U/L (0-32); Blood Urea Nitrogen 34 mg/dL (8-23); Calcium 8.3 mg/dL (8.5-10.5); Carbon Dioxide 22 mmol/L (22-29); Chloride 110 mmol/L (98-107); Globulin 2.5 g/dL (1.3-4.6); Glucose 123 mg/dL (65-115); Osmolality Calculated 297 mOsm/kg (285-295); Potassium 4.3 mmol/L (3.5-5.1); Sodium 139 mmol/L (136-145); Total Bilirubin 0.2 mg/dL (0.15-1.2); Total Protein 5.4 g/dL (6.6-8.7)
--- NOTE | 2020-09-16 06:00 | USCV_ITS ---
Iris Rockwell Age: 74 Gender: F : 1945 Exam Date: 09/16/2020 07:09 Ordering Phys: Kim Granados MD Technologist: ARTEMIO Exam Location: [facility] [place] Indication: swelling HISTORY: Lower extremity swelling. PROCEDURES: Bilaterally, the common femoral, superficial femoral, profunda femoral, popliteal, posterior tibial, greater saphenous veins, and the peroneal trunk were identified and interrogated in the standard fashion. FINDINGS: Normal 2-D Doppler and augmentation and compressibility throughout the lower extremity venous structures. Additional imaging through the proximal calf veins also reveals no thrombus. Limited evaluation of the greater saphenous vein is patent with no thrombus.. Mild bilateral lower extremity edema. CONCLUSIONS No DVT bilateral lower extremities. Dr. Mary Griffin DO (Electronically Signed) Final Date: 16 September 2020 10:04 S
[2020-09-16 06:44] LABS: Glucose Point of Care 108 mg/dL (70-110)
[2020-09-16] MEDS: amlodipine 10 mg Tablet PO (08:17)
[2020-09-16] MEDS: carvedilol 25 mg Tablet PO ×2 (08:17→20:56)
[2020-09-16 08:24] LABS: SARS Covid-2 Antigen Negative (Negative)
--- NOTE | 2020-09-16 09:24 | PC.CHAP ---
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 [] Patient/Family/Request visit [] Outpatient visit [] Follow-up visit [] Physician referral [] Code/Alert [x] Routine visit [] Staff referral [] Actively dying [] Patient sleeping [] Family support [] [] Out of room [] Palliative care [] [] Receiving care in room [] Pre-surgical visit [] Trauma [] Long length of stay [] ICU visit [] Other: Relational/Emotional Strength [] Patient feels connected with others/family/visitors/staff [] Distress [] Loneliness/isolation [] Abandonment Spirituality of Patient [] Person of Layla [] Attends Caodaism of their Layla [] Believes in Prayer [] Reads Bible or Baptism materials [] There are Spiritual issues to be addressed [employer] Interventions [x] Prayer [x] Active listening [x] Non-anxious presence [x] Spiritual/emotional support [] Crisis/trauma care [] Spiritual counseling [] Bereavement support [] Provided bereavement packet [] Provided Bible/devotional materials [] Provided toy/stuffed animal, coloring book to patient or family member [] Provided Communion [] Anointing/[place] [] Salvation [x] Completed spiritual assessment [] Other: Impact on Illness or Injury [] Angry [] Fearful [] Anxious [] Often cries [] Exhaustion [] Unable to work [] Unable to attend holiness [] Unable to walk/stand [] Unable to read [] Unable to drive [] Unable to eat/drink [] Unable to sleep [] Unable to be with family [] Patient intubated [] Other: Summary patient feeling much better.. ox turned down.. feelings it needs to be increased Time spent with patient 10 min
[2020-09-16 11:29] LABS: Glucose Point of Care 168 mg/dL (70-110)
--- NOTE | 2020-09-16 16:00 | P.PN_ITS ---
Subjective Subjective: Interval history: Currently on 2 L/min supplemental O2, saturating 93% on nasal cannula, afebrile, blood pressure much better controlled today, urine output 900 cc, net -1.2 L. Continues to be dyspneic today, still with signifcant le edema Medications: Reviewed: Yes Vitals/I&O/Wt Last Vital Signs Temp 97.8 F 09/16/20 15:17 Pulse 61 09/16/20 15:17 Resp 16 09/16/20 15:17 BP 143/63 09/16/20 15:17 Pulse Ox 93 09/16/20 15:17 09/16/20 09/16/20 09/16/20 06:59 14:59 22:59 Intake Total 420 / 638.333 720 / 720 Output Total 900 / 1850 Balance -480 / -1211.667 720 / 720 Weight last 48 hrs Weight 121.245 kg Weight 102.512 kg Physical Exam Narrative: EXAM NARRATIVE: GEN: Awake, alert and oriented, no acute distress CVS: S1S2 N RS: CTA B/L Abd: Soft, nt/nd , bs+ CAR[employer] BROKER: no focal neuro deficits Urinary Catheter Management^: Jesus: Cath Placed During This Visit: yes Reason for Continuing Indwelling Catheter: Other Urinary Catheter Date of Insertion: 09/15/20 Urinary Catheter Time of Insertion: 14:26 Data : 09/16/20 04:24 09/16/20 04:24 A&P Assessment and plan (1) Acute exacerbation of CHF (congestive heart failure): As evidenced by elevated BNP, crackles on exam and pleural effusion, LE edema Inadequate diuretic response to Lasix IV diuresis yesterday, switch to Bumex 2 mg IV every 12 hours and monitor JODY. Patient still with significant edema, crackles on auscultation monitor I/O, daily weight May have been precipitated by hypertensive urgency with SBP >200 upon admission, reports at home BP ranges ~120/80, blood pressure is much better controlled today after addition of amlodipine 10 mg p.o. daily. Received nitroglycerin patch yesterday in the ER, add Imdur 15 mg p.o. daily at low-dose at this present time. Monitor carefully for response. Check echocardiogram, last known EF from December 2019 at 60%, grade 1 diastolic dysfunction. Previous history of Takotsubo cardiomyopathy with EF of around 40% in June 2019. 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 acute chanegs on EKG started on asa 81mg po daily primary prevention lipid panle to ascertain ascvd risk score Status: Acute (4) Pleural effusion, left: Persistent since 04/2020, less likely consolidative process underlying CT chest without any underlying masses or consolidation Status: Acute (5) CKD (chronic kidney disease): chronic, cr at baseline Status: Acute Qualifiers: Chronic kidney disease stage: unspecified stage Qualified Code(s): N18.9 - Chronic kidney disease, unspecified (6) Hypoxia: likely from CHF and pleural effusion lasix as above less likely PNA CT chest with persistent pleural effusion Status: Acute (7) Anemia: check iron panel, b12 and folate Status: Acute Additional A&P Information + D dimer with hypoxia: Cannot obtain CTA chest to avoid contrast injury in CKD, V/q scan may not be revealing in the presence of left pleural effusion and CHF, lower extremity Doppler negative for DVT. DVT prophylaxis Lovenox Full code Attestations Medical Necessity Statement*: CHF exacerbation, need for iv diuresis , respiratory optmization Coding Level of Care Code Acute Packing [employer] Final Assembly Supervisor for Chg Fwd Diagnoses Acute exacerbation of CHF (congestive heart failure) I50.9 Hypertensive urgency I16.0 Elevated troponin R77.8 Pleural effusion, left J90 CKD (chronic kidney disease) N18.9 Chronic kidney disease stage: unspecified stage Hypoxia R09.02 Anemia D64.9
[2020-09-16 16:40] LABS: Glucose Point of Care 179 mg/dL (70-110)
[2020-09-16] MEDS: bumetanide 0.25 mg/mL SDV 10 mL 2 MG IV (16:50)
[2020-09-16] MEDS: aspirin 81 mg EC Tablet PO (16:50)
[2020-09-16] MEDS: enoxaparin 30 mg/0.3 mL Syringe SUBCUT (16:58)
[2020-09-16] MEDS: sertraline 50 mg Tablet PO (19:06)
[2020-09-16 20:42] LABS: Glucose Point of Care 193 mg/dL (70-110)
[2020-09-17] VITALS (9 sets, daily range): BP systolic 128–174; BP diastolic 62–78; PULSE 53–65; RESP 13–27; TEMP 36.6–37; O2SAT 95–100; BMI 40.6
--- NOTE | 2020-09-17 00:36 | PC.NURSE ---
NURSE NOTE: PT C/O PAIN IN LEGS BILATERALLY D/T SWELLING AND INABILITY TO SLEEP. PLACED CALL TO DR. SIMPSON AT THIS TIME AND RECEIVED ORDERS FOR TYLENOL 650MG PO X1 TIME AND BENEDRYL 25MG PO X1 TIME. MEDICATIONS GIVEN ORDERED.
[2020-09-17] MEDS: diphenhydrAMINE 25 mg Capsule PO ×2 (00:44→22:40)
[2020-09-17] MEDS: acetaminophen 325 mg Tablet 650 MG PO ×2 (00:44→22:39)
[2020-09-17] MEDS: bumetanide 0.25 mg/mL SDV 10 mL 2 MG IV (03:17)
--- NOTE | 2020-09-17 05:00 | USCV_ITS ---
Iris Rockwell Age: 74 Gender: F : 1945 Exam Date: 09/17/2020 06:09 Ordering Phys: Kim Granados MD Technologist: Roxanna Torres Exam Location: [facility] [place] Indication: CHF BP: 141 / 65 HR: 54 Rhythm: Sinus Technical Quality: Adequate MEASUREMENTS (Male / Female) Normal Values 2D ECHO LV Diastolic Diameter PLAX 4.9 cm 4.2 - 5.9 / 3.9 - 5.3 cm LV Systolic Diameter PLAX 3.6 cm IVS Diastolic Thickness 2.0 cm 0.6 - 1.0 / 0.6 - 0.9 cm IVS Systolic Thickness 2.3 cm LVPW Diastolic Thickness 1.7 cm 0.6 - 1.0 / 0.6 - 0.9 cm LVPW Systolic Thickness 2.2 cm LVOT Diameter 2.0 cm LV Ejection Fraction 2D Teich 52.4 % LV Ejection Fraction MOD 2C 46.7 % LV Ejection Fraction 2C AL 50.8 % LA Diameter 3.5 cm LA Width 4.8 cm LA Height 5.7 cm RA Width 3.5 cm RA Height 4.3 cm Aorta at Sinotubular Diameter 2.6 cm M-MODE LV Diastolic Diameter MM 5.3 cm 4.2 - 5.9 / 3.9 - 5.3 cm LV Systolic Diameter MM 3.7 cm LV Ejection Fraction MM Teich 57.6 % IVS Diastolic Thickness MM 1.9 cm 0.6 - 1.0 / 0.6 - 0.9 cm IVS Systolic Thickness MM 2.1 cm LVPW Diastolic Thickness MM 1.5 cm 0.6 - 1.0 / 0.6 - 0.9 cm LVPW Systolic Thickness MM 2.3 cm Aortic Annulus Diameter 3.6 cm LA Ao Ratio MM 1.0 MV E Point Septal Separation 0.9 cm DOPPLER AV Peak Velocity 218.0 cm/s LVOT Peak Velocity 94.0 cm/s AV Area Cont Eq vti 1.3 cm squared AV Area Cont Eq pk 1.4 cm squared MV Area PHT 1.6 cm squared Mitral E to A Ratio 0.8 MV E' Velocity 52.0 cm/s Mitral E to MV E' Ratio 22.0 Mitral E to LV E' Lateral Ratio 18.0 Mitral E to LV E' Septal Ratio 28.2 TR Peak Velocity 249.0 cm/s TR Peak Gradient 24.8 mmHg Right Atrial Pressure 8.0 mmHg Pulmonary Artery Systolic Pressu 32.8 mmHg PV Peak Velocity 95.0 cm/s RV Acceleration Time 0.1 s RV Ejection Time 0.3 s RV AcT/ET 0.4 FINDINGS Left Ventricle Normal left ventricular cavity size and markedly increased wall thickness. Severe concentric left ventricular hypertrophy. Mildly decreased decreased left ventricular systolic function.. Left ventricular ejection fraction is estimated at 45-50 %. Grade II diastolic dysfunction, moderately elevated filling pressures. Right Ventricle Normal right ventricular size and systolic function. Right ventricular systolic pressure 32.8 mmHg. Right Atrium Normal right atrial size. Right atrial pressure estimated at 8 mmHg. Left Atrium Mildly increased left atrial size. Mitral Valve Severe mitral annular calcification. Thickened mitral valve. No mitral valve stenosis. No mitral valve regurgitation. Aortic Valve Thickened and calcified trileaflet aortic valve. Mild to moderate aortic valve stenosis, mean gradient 11.7 mmHg, MICHAEL 1.3 cm squared. No aortic valve regurgitation. Tricuspid Valve Mild tricuspid valve regurgitation. Pulmonic Valve Pulmonic valve not well visualized. Trace pulmonary valve regurgitation. Pericardium No pericardial effusion. Aorta Normal size aortic root and proximal ascending aorta. Normal- sized inferior vena cava with decreased respiratory variations. CONCLUSIONS 1. This is a technically difficult study. 2. Normal left ventricular cavity size and markedly increased wall thickness. Severe concentric left ventricular hypertrophy. Mildly decreased decreased left ventricular systolic function.. Left ventricular ejection fraction is estimated at 45-50 %. Grade II diastolic dysfunction, moderately elevated filling pressures. 3. Normal right ventricular size and systolic function. 4. Mild to moderate aortic valve stenosis, mean gradient 11.7 mmHg, MICHAEL 1.3 cm squared. 5. Direct comparison to previous study dated 01/05/2020 is not possible given technical differences in study. 6. Repeat study with ultrasound enhancing agent is recommended for better assessment of LV function and aortic valve stenosis. Catrachita Davila MD (Electronically Signed) Final Date: 17 September 2020 17:53 S
[2020-09-17 05:07] LABS: Basophils # 0.1 10^3/uL (0.0-0.1); Basophils % 1.1 %; Eosinophils # 0.4 10^3/uL (0.0-0.8); Eosinophils % 5.9 %; Hematocrit 31.4 % (37.0-47.0); Hemoglobin 9.6 g/dL (11.5-15.3); Lymphocytes % 30.2 %; Mean Corpuscular HGB Conc 30.6 g/dL (30.0-36.0); Mean Corpuscular Hemoglobin 26.4 pg (28.0-34.0); Mean Corpuscular Volume 86.3 fL (81-99); Mean Platelet Volume 10.7 fL (7.4-10.4); Monocytes # 0.9 10^3/uL (0.2-0.9); Monocytes % 13.9 %; Neutrophils # 3.22 10^3/uL (1.8-7.7); Neutrophils % 48.7 %; Nucleated Red Blood Cells % 0 %; Platelet Count 344 10^3/cmm (130-400); Red Blood Count 3.64 10^6/uL (4.1-5.3); Red Cell Distribution Width 16.4 % (12.1-15.1); White Blood Count 6.6 10^3/uL (4.0-10.0)
[2020-09-17 05:29] LABS: Alanine Aminotransferase 10 U/L (0-33); Albumin Level 3.1 g/dL (3.5-5.2); Alkaline Phosphatase 57 IU/L (35-105); Anion Gap 12.9 (5-19); Aspartate Amino Transferase 16 U/L (0-32); Blood Urea Nitrogen 42 mg/dL (8-23); Calcium 8.4 mg/dL (8.5-10.5); Carbon Dioxide 22 mmol/L (22-29); Chloride 111 mmol/L (98-107); Globulin 2.2 g/dL (1.3-4.6); Glucose 87 mg/dL (65-115); Osmolality Calculated 302 mOsm/kg (285-295); Potassium 4.9 mmol/L (3.5-5.1); Sodium 141 mmol/L (136-145); Total Bilirubin 0.2 mg/dL (0.15-1.2); Total Protein 5.3 g/dL (6.6-8.7)
[2020-09-17 05:41] LABS: Estmated Average Glucose 163; Hemoglobin A1C 7.3 % (4.0-6.0)
[2020-09-17 05:43] LABS: Chol HDL Ratio 3.79 mg/dL (0.0-4.40); Cholesterol 197 mg/dL (0-200); Ferritin 52 ng/mL (15-150); HDL Cholesterol 52 mg/dL (60-100); Iron 23 ug/dL (37-145); LDL Cholesterol Calculated 129 mg/dL (50-129); LDL HDL Ratio 2.48 RATIO (0.00-3.22); Total Iron Binding Capacity 228 mcg/dl; Triglycerides 82 mg/dL (0-150); Unsaturated Iron Binding 205 ug/dL (112-347); Vitamin B12 470 pg/mL (232-1245)
[2020-09-17 07:19] LABS: Glucose Point of Care 103 mg/dL (70-110)
[2020-09-17] MEDS: aspirin 81 mg EC Tablet PO (08:23)
[2020-09-17] MEDS: isosorbide mononitrate ER 30 mg Tablet 15 MG PO (08:23)
[2020-09-17] MEDS: carvedilol 25 mg Tablet PO (08:24)
[2020-09-17] MEDS: amlodipine 5 mg Tablet PO (08:24)
--- NOTE | 2020-09-17 10:23 | US_ITS ---
WS: [id number] RENAL ULTRASOUND HISTORY: JOSE LUIS on CKD COMPARISON: None available. TECHNIQUE: 2-D and color Doppler imaging of the kidney submitted. Right kidney: 10.6 cm x 5.7 cm x 5.0 cm. Normal echogenicity with no hydronephrosis or mass. Left kidney: 9.9 cm x 5.3 cm x 5.3 cm. LEFT kidney is difficult to visualize due to body habitus. Mass would be easily obscured. No gross hy dronephrosis. Aorta: Not well visualized. Urinary Bladder: Nondistended and Jesus catheter is in position. US/US renal BI* [id number] IMPRESSION: 1. Technically very difficult renal ultrasound evaluation. 2. RIGHT kidney is negative. 3. LEFT kidney is very poorly visualized. Grossly no hydronephrosis.
--- NOTE | 2020-09-17 10:43 | PM.PN ---
Subjective Subjective: Interval history: Urine output charted as 1500 cc, however per nursing report urine output 800 cc last shift. Still with persisting lower extremity edema, overall appears unchanged compared to yesterday. Oxygen requirement stable at 2 L/min, still with complaints of dyspnea, creatinine bumped up to 2.8 today. Remains afebrile. Bradycardia with heart rate in 50s, blood pressure much better controlled. Medications: Reviewed: Yes Vitals/I&O/Wt Last Vital Signs Temp 98.0 F 09/17/20 07:28 Pulse 54 L 09/17/20 07:28 Resp 13 09/17/20 07:28 BP 130/67 09/17/20 07:28 Pulse Ox 100 09/17/20 07:28 09/16/20 09/17/20 09/17/20 22:59 06:59 14:59 Intake Total 120 / 840 240 / 240 Output Total 950 / 950 550 / 1500 Balance -830 / -110 -550 / -660 240 / 240 Weight last 48 hrs Weight 110.733 kg Weight 121.245 kg Weight 102.512 kg Physical Exam Narrative: EXAM NARRATIVE: GEN: Awake, alert and oriented, no acute distress CVS: S1S2 N RS: Reduced air entry left lung base , crackles RLL Abd: Soft, nt/nd , bs+ [employer]: no focal neuro deficits ext 2+ pitting edema Urinary Catheter Management^: Jesus: Cath Placed During This Visit: yes Reason for Continuing Indwelling Catheter: Other Urinary Catheter Date of Insertion: 09/15/20 Urinary Catheter Time of Insertion: 14:26 Data : 09/17/20 04:30 09/17/20 04:30 A&P Assessment and plan (1) Acute exacerbation of CHF (congestive heart failure): As evidenced by elevated BNP, crackles on exam and pleural effusion, LE edema started lasix 40mg iv q12h on 09/15, changed to Bumex 2mg iv q12h on 09/16 due to no significant improvement, tachypnea, overall appears unchanged this morning, though tachypnea slightly better monitor I/O, daily weight accurately CHF may have been precipitated by hypertensive urgency with SBP >200 upon admission, reports at home BP ranges ~120/80, blood pressure is much better controlled after addition of amlodipine 10 mg p.o. daily. echocardiogram taken, results pending, last known EF from December 2019 at 60%, grade 1 diastolic dysfunction. Previous history of Takotsubo cardiomyopathy with EF of around 40% in June 2019. Also reports a past medical history of sleep apnea, does not use CPAP consistently at home, overnight drop in saturations may be related to the same, will order CPAP for nighttime use here Status: Acute Qualifiers: Heart failure type: diastolic Qualified Code(s): I50.33 - Acute on chronic diastolic (congestive) heart failure (2) Hypertensive urgency: s/p hydralazine 10mg IVP x 1, clonidine 0.2mg, nitrobid patch 0.5 inch patch started norvasc 10mg daily, BP better controlled D/c Imdur and monitor reduce carvedilol to 12.5mg BID given bradycardia Status: Acute (3) Elevated troponin: negative delta, no acute changes on EKG, less concerning for AMI reports stess test and angigram perfromed in Jun 2019 at [facility], records requested started on asa 81mg po daily primary prevention 10 year ASCVD risk score 34%--> start atorvastatin Status: Acute (4) Acute kidney injury superimposed on CKD: Baseline cr since 12/2019 noted to be between 1.8-2.2 Initially upon admission creatinine at 2.2, bumped up to 2.8 now, likely related to diuresis Patient reports that her creatinine has been abnormal since at least June 2019 when she was diagnosed with Takotsubo cardiomyopathy. From her history it appears cause was thought to be cardiorenal at the time, however last EF at 60% with grade 1 diastolic dysfunction. Proteinuria present. Does not usually follow with nephrology as outpatient Nephrology consulted to assist with diuresis management given development of JOSE LUIS on CKD, ongoing volume overload Echocardiogram pending today. Renal ultrasound ordered, last renal imaging dates back to 2018 at which point no gross abnormality was noted HbA1c currently at 7.3 Hepatitis and HIV serology with a.m. labs Status: Acute (5) Pleural effusion, left: Persistent since 04/2020, less likely consolidative process underlying CT chest without any underlying masses or consolidation Status: Acute (6) Hypoxia: likely from CHF and pleural effusion lasix as above less likely PNA CT chest with persistent pleural effusion Status: Acute (7) Anemia: check iron panel, b12 and folate Status: Acute Qualifiers: Anemia type: unspecified type Qualified Code(s): D64.9 - Anemia, unspecified Additional A&P Information + D dimer with hypoxia: Cannot obtain CTA chest to avoid contrast injury in CKD, V/q scan may not be revealing in the presence of left pleural effusion and CHF, lower extremity Doppler negative for DVT. DVT prophylaxis Lovenox Full code Attestations Medical Necessity Statement*: worsening renal function, ongoing need for Iv diuresis, nephrology consult Coding Level of Care Code Acute Inletter for [facility] Fwd Diagnoses Acute exacerbation of CHF (congestive heart failure) I50.33 Heart failure type: diastolic Hypertensive urgency I16.0 Elevated troponin R77.8 Acute kidney injury superimposed on CKD N17.9; N18.9 Pleural effusion, left J90 Hypoxia R09.02 Anemia D64.9 Anemia type: unspecified type
[2020-09-17 11:35] LABS: Glucose Point of Care 205 mg/dL (70-110)
[2020-09-17 12:05] LABS: Magnesium 1.9 mg/dL (1.7-2.3); Phosphorus 5.5 mg/dL (2.5-4.5)
--- NOTE | 2020-09-17 13:55 | P.CONIM_ITS ---
Providers/Reason For Consult Consulting Physican/Specialty*: Karolina Figueroa DO, telenephrology Reason for Consult*: Acute kidney injury, fluid overload, CKD Attending Physician: Kim Granados MD Primary Care Provider: Osito Owens MD History of Present Illness History of Present Illness Iris Rockwell is a 74 year old female admitted with CHF exacerbation. She states her lasix was reduced after she lost about 20# of fluid. It rapidly reaccumulated. 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 Was on ACEi - stopped due to cough. Weight is currently 20# greater than a couple of weeks ago. DM x 22 years Review of Systems Const: Reports: change in weight Card: Reports: edema Resp: Reports: dyspnea Meds/Allergies Home Medications and Allergies Home Medications Medication Instructions Recorded Confirmed Last Taken Type nitroglycerin 0.4 mg sublingual 0.4 mg SUBLINGUAL Q5M PRN 07/08/19 09/15/20 Unknown History tablet Levemir FlexTouch U-100 Insuln 25 unit SUBCUT BEDTIME@2100 01/04/20 09/15/20 09/14/20 History insulin lispro [Humalog KwikPen 10 unit SUBCUT TID 30 Days #15 ml 01/07/20 09/15/20 05/03/20 Rx Insulin] sertraline 50 mg tablet 50 mg PO Q24H 30 Days #30 tab 07/06/20 09/15/20 09/14/20 Rx ondansetron HCl 4 mg tablet 4 mg PO Q8H PRN #30 tab 07/07/20 09/15/20 Unknown Rx carvedilol 25 mg PO BID@09/15/20 09/15/20 09/14/20 History furosemide [Lasix] 40 mg PO DAILY@09/15/20 09/15/20 09/14/20 History spironolactone 25 mg PO DAILY@09/15/20 09/15/20 09/14/20 History Allergies Allergy/AdvReac Type Severity Reaction Status Date / Time morphine Allergy unknown Verified 09/02/20 11:24 zolpidem Allergy na Verified 09/02/20 11:24 Current Medications Current Medications Generic Name Dose Route Start Last Admin Trade Name Freq PRN Reason Stop Dose Admin Aspirin 81 mg 09/16/20 16:05 09/17/20 08:23 Aspirin 81 Mg Ec Tablet PO 81 mg DAILY JT Administration Bumetanide 2 mg 09/16/20 16:00 09/17/20 03:17 Bumetanide 0.25 Mg/Ml Sdv 10 Ml IV 2 mg Q12H JT Administration Enoxaparin Sodium 30 mg 09/16/20 18:00 09/16/20 16:58 Enoxaparin 30 Mg/0.3 Ml Syringe SUBCUT 30 mg Q24H JT Administration Insulin Aspart 0 unit 09/16/20 18:00 09/17/20 12:18 Insulin Aspart 100 Unit/1 Ml SUBCUT 4 unit WM&BEDTIME JT Administration Protocol Insulin Detemir 25 unit 09/15/20 21:00 09/16/20 20:56 Insulin Detemir 100 Units/1 Ml SUBCUT 25 unit BEDTIME@2100 JT Administration Sertraline HCl 50 mg 09/15/20 19:14 09/16/20 19:06 Sertraline 50 Mg Tablet PO 50 mg Q24H JT Administration PFSH Acute PFSH: Medical History Acute exacerbation of CHF (congestive heart failure) Chronic kidney disease, stage 3 -Nephrology f/u as outpatient Congestive heart failure Depression 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; s/p toe amputations due to diabetic foot infections Diabetes Diabetic neuropathy Diastolic CHF -Echo: EF=60%, G1DD, no RWMA, mild pulmonary HTN, mild , mild TR, trace MR GERD (gastroesophageal reflux disease) -on PPI and carafate Hypercholesteremia -on statin Hypertension Hypertension ANA (obstructive sleep apnea) does not wear cpap by choice Takotsubo cardiomyopathy -had extensive workup done in [facility] in [place] in 06/2019; records reviewed -Echo with EF=43%, LVH, noted distal septal, apical and anterolateral hypokinesia/apical ballooning consistent with Takotsubo cardiomyopathy; mild MR. No mention of stress testing or cardiac cath. Records in chart -noted elevated troponins with no significant delta; unlikely to be acute process -telemetry monitoring -Echo: EF=60%, G1DD, no RWMA, mild pulmonary HTN, mild , mild TR, trace MR Transient cerebral ischemia Venous insufficiency (chronic) (peripheral) Surgical History 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 History of appendectomy History of bladder suspension procedure History of cataract surgery History of cholecystectomy History of drainage of abscess left vulvar/perineal area History of hernia repair History of surgery on arm left arm, due to extravasation History of total hysterectomy Family History Father CAD (coronary artery disease) by report, she never knew him Social History Smoking and tobacco status: never smoked Alcohol intake: never Caregiver/support person: No Household members: none Marital status: / Vitals/I&O/Wt Last Vital Signs Temp 97.8 F 09/17/20 10:59 Pulse 57 L 09/17/20 10:59 Resp 22 H 09/17/20 10:59 BP 128/62 09/17/20 10:59 Pulse Ox 98 09/17/20 10:59 09/16/20 09/17/20 09/17/20 22:59 06:59 14:59 Intake Total 120 / 840 480 / 480 Output Total 950 / 950 550 / 1500 Balance -830 / -110 -550 / -660 480 / 480 Weight last 48 hrs Weight 110.733 kg Weight 121.245 kg Physical Exam Const: COMMON NORMALS: no acute distress GENERAL APPEARANCE: cooperative HENMT: COMMON NORMALS: normocephalic HEAD & SCALP: normocephalic Eye: COMMON NORMALS: no scleral icterus Extremity: GENERAL: Yes edema (3+ bilateral) Urinary Catheter Management^: Jesus: Cath Placed During This Visit: yes Reason for Continuing Indwelling Catheter: Other Urinary Catheter Date of Insertion: 09/15/20 Urinary Catheter Time of Insertion: 14:26 Data Labs: Other Labs: Urine 3+ protein, 15-25 WBC/HPF, HbA1C 7.3%, calcium 8.4, albumin 3.1, phos 5.5, Mg 1.9 TSAT 10%, SF 52 Micro: Micro: Microbiology 09/15/20 16:05 Urine Culture - Pr eliminary Urine,Clean Catch Enterococcus sp ecies Imaging^: US: Radiologist's impression: Right kidney: 10.6 cm x 5.7 cm x 5.0 cm. Normal echogenicity with no hydronephrosis or mass. Left kidney: 9.9 cm x 5.3 cm x 5.3 cm. LEFT kidney is difficult to visualize due to body habitus. Mass would be easily obscured. No gross hydronephrosis. CT Chest: Radiologist's impression: Lungs: See Pleural spaces finding. Pleural spaces: Stable small right pleural effusion. Small left pleural effusion which is increased slightly in size. Impression. There is compressive atelectasis in both lungs. Heart: Mild cardiomegaly. Aorta: There is moderate to severe atherosclerotic disease of the aorta and coronary arteries. Lymph nodes: Stable 1 cm anterior mediastinal lymph node. A&P Additional A&P Information 1. Acute kidney injury due to CHF exacerbation 2. Chronic kidney disease with proteinuria likely due to diabetic nephropathy, possible nephrotic syndrome 3. Diuretic resistance 4. UTI with enterococcus 5. Accelerated hypertension on admission, possible renal artery stenosis, not currently on ACEi or ARB, blood pressure presently well-controlled 6. Iron deficiency anemia Recommend: Lasix gtt 30 mg/hr x 12 hours. Metolozone 5 mg daily added. stop bumex. begin amoxil 500 mg Q8h pending sensitivity. Decrease amlodipine to 5 mg daily. Fluid and salt restrict. IV iron if Hb decreases further. Coding Level of Care Code Acute [employer] Out[employer] Supervisor for Ivett Koo
[2020-09-17] MEDS: metOLazone 5 MG Tablet PO (15:10)
[2020-09-17 16:23] LABS: Creatinine Urine, Random 76 mg/dL (28-217)
[2020-09-17 16:37] LABS: Glucose Point of Care 101 mg/dL (70-110)
[2020-09-17 16:50] LABS: Urine Protein Random 221 mg/dL
[2020-09-17] MEDS: enoxaparin 30 mg/0.3 mL Syringe SUBCUT (17:08)
[2020-09-17] MEDS: sertraline 50 mg Tablet PO (18:29)
[2020-09-17 20:11] LABS: Glucose Point of Care 133 mg/dL (70-110)
[2020-09-17] MEDS: amoxicillin 500 mg Capsule PO (20:18)
[2020-09-17] MEDS: carvedilol 12.5 mg Tablet PO (20:18)
[2020-09-17] MEDS: atorvastatin 40 mg Tablet PO (20:19)
[2020-09-18] VITALS (11 sets, daily range): BP systolic 144–156; BP diastolic 62–71; PULSE 58–89; RESP 17–29; TEMP 36.8–37.1; O2SAT 93–97
[2020-09-18 05:20] LABS: Basophils # 0.1 10^3/uL (0.0-0.1); Eosinophils # 0.4 10^3/uL (0.0-0.8); Eosinophils % 5.2 %; Hematocrit 31.4 % (37.0-47.0); Hemoglobin 9.5 g/dL (11.5-15.3); Lymphocytes # 1.9 10^3/uL (0.8-4.8); Lymphocytes % 26.4 %; Mean Corpuscular HGB Conc 30.3 g/dL (30.0-36.0); Mean Corpuscular Hemoglobin 26.8 pg (28.0-34.0); Mean Corpuscular Volume 88.7 fL (81-99); Mean Platelet Volume 11.1 fL (7.4-10.4); Monocytes # 1.2 10^3/uL (0.2-0.9); Monocytes % 16.9 %; Neutrophils # 3.66 10^3/uL (1.8-7.7); Neutrophils % 50.2 %; Nucleated Red Blood Cells % 0 %; Platelet Count 344 10^3/cmm (130-400); Red Blood Count 3.54 10^6/uL (4.1-5.3); Red Cell Distribution Width 16.4 % (12.1-15.1); White Blood Count 7.3 10^3/uL (4.0-10.0)
[2020-09-18 05:39] LABS: Anion Gap 14.5 (5-19); Blood Urea Nitrogen 43 mg/dL (8-23); Carbon Dioxide 22 mmol/L (22-29); Chloride 107 mmol/L (98-107); Potassium 4.5 mmol/L (3.5-5.1); Sodium 139 mmol/L (136-145)
[2020-09-18 05:40] LABS: Alanine Aminotransferase 14 U/L (0-33); Albumin Level 2.9 g/dL (3.5-5.2); Alkaline Phosphatase 53 IU/L (35-105); Aspartate Amino Transferase 27 U/L (0-32); Calcium 8.2 mg/dL (8.5-10.5); Globulin 2.6 g/dL (1.3-4.6); Glucose 102 mg/dL (65-115); Osmolality Calculated 299 mOsm/kg (285-295); Total Bilirubin 0.3 mg/dL (0.15-1.2); Total Protein 5.5 g/dL (6.6-8.7)
[2020-09-18 05:45] LABS: Magnesium 2.3 mg/dL (1.7-2.3); Phosphorus 2.9 mg/dL (2.5-4.5)
[2020-09-18 06:01] LABS: Hepatitis A Antibody IgM Non-Reactive (Nonreactive); Hepatitis B Core AB, Total Non-Reactive (Nonreactive); Hepatitis B Surface AB 3.5 (0-8.5); Hepatitis B Surface Antigen Non-Reactive (Nonreactive); Hepatitis C Virus Antibody Non-Reactive (Nonreactive)
[2020-09-18 06:55] LABS: Glucose Point of Care 103 mg/dL (70-110)
[2020-09-18 07:54] LABS: HIV 1 & 2 Antibody Non-Reactive (Non-Reactiv); HIV 1 & 2 Antigen Non-Reactive (Non-Reactiv)
--- NOTE | 2020-09-18 08:21 | PM.PN ---
Subjective Subjective: Interval history: feels better Medications: Reviewed: Yes Vitals/I&O/Wt Last Vital Signs Temp 98.2 F 09/18/20 07:35 Pulse 61 09/18/20 08:07 Resp 18 09/18/20 08:07 BP 144/71 09/18/20 07:35 Pulse Ox 96 09/18/20 08:07 09/17/20 09/18/20 09/18/20 22:59 06:59 14:59 Intake Total 250 / 730 Output Total 1100 / 1100 1700 / 2800 Balance -850 / -370 -1700 / -2070 Weight last 48 hrs Weight 111.272 kg Weight 110.733 kg Physical Exam Const: COMMON NORMALS: no acute distress GENERAL APPEARANCE: cooperative Resp: COMMON NORMALS: normal respiratory effort AUSCULTATION: rales Cardio: COMMON NORMALS: regular rhythm RHYTHM: regular rhythm Extremity: GENERAL: Yes edema Urinary Catheter Management^: Jesus: Cath Placed During This Visit: yes Reason for Continuing Indwelling Catheter: Other Urinary Catheter Date of Insertion: 09/15/20 Urinary Catheter Time of Insertion: 14:26 Data : 09/18/20 04:36 09/18/20 04:36 Other Labs: urine protein/Cr ratio 2.9 g Micro: Microbiology 09/15/20 16:05 Urine Culture - Preliminary Urine,Clean Catch Enterococcus species A&P Additional A&P Information 1. Acute kidney injury due to CHF exacerbation, nonoliguric, renal function stable, diuresing on lasix gtt 2. Chronic kidney disease with near nephrotic range proteinuria likely due to diabetic nephropathy 3. UTI with enterococcus durans, sensitive to pcn, continue amoxil 4. Accelerated hypertension on admission, possible renal artery stenosis, not currently on ACEi or ARB, blood pressure presently well-controlled 5. Iron deficiency anemia Recommend: Discontinue lasix gtt.Chnage to lasix 80 mg IV Q12h, continue Metolozone 5 mg daily. Decrease amlodipine to 5 mg daily. Fluid and salt restrict. IV iron if Hb decreases further. Attestations Medical Necessity Statement*: see above Time Spent in Patient Care: Greater than 35 minutes Coding Level of Care Code Acute Senior Policy Associate for Ivett Koo
[2020-09-18] MEDS: metOLazone 5 MG Tablet PO (08:37)
[2020-09-18] MEDS: amlodipine 10 mg Tablet PO (08:37)
[2020-09-18] MEDS: amoxicillin 500 mg Capsule PO ×3 (08:37→21:08)
[2020-09-18] MEDS: carvedilol 12.5 mg Tablet PO ×2 (08:37→21:08)
[2020-09-18] MEDS: aspirin 81 mg EC Tablet PO (08:37)
[2020-09-18] MEDS: FUROsemide 10 mg/mL SDV 10mL 80 MG IVP ×2 (09:05→21:09)
[2020-09-18 11:49] LABS: Glucose Point of Care 188 mg/dL (70-110)
--- NOTE | 2020-09-18 15:39 | P.PN_ITS ---
Subjective Subjective: Interval history: Lower extremity edema improving, dyspnea subjectively better today, renal function is stable with creatinine at 2.8, urine output 2 L over last 24 hours. Patient was on Lasix infusion yesterday evening, converted to Lasix 80 IV every 12 this morning and addition of metolazone. Medications: Reviewed: Yes Vitals/I&O/Wt Last Vital Signs Temp 98.8 F 09/18/20 11:48 Pulse 63 09/18/20 11:48 Resp 20 H 09/18/20 11:48 BP 144/64 09/18/20 11:48 Pulse Ox 94 09/18/20 11:48 09/18/20 09/18/20 09/18/20 06:59 14:59 22:59 Intake Total 442 / 442 Output Total 1700 / 2800 650 / 650 Balance -1700 / -2070 -208 / -208 Weight last 48 hrs Weight 111.272 kg Weight 110.733 kg Physical Exam Narrative: EXAM NARRATIVE: GEN: Awake, alert and oriented, no acute distress CVS: S1S2 N RS: CTA B/L Abd: Soft, nt/nd , bs+ CUT OUT OPERATOR: no focal neuro deficits Extremity improving lower extremity edema Urinary Catheter Management^: Jesus: Cath Placed During This Visit: yes Reason for Continuing Indwelling Catheter: Other Urinary Catheter Date of Insertion: 09/15/20 Urinary Catheter Time of Insertion: 14:26 Data : 09/18/20 04:36 09/18/20 04:36 Micro: Microbiology 09/15/20 16:05 Urine Culture - Final Urine,Clean Catch Enterococcus durans hirae A&P Assessment and plan (1) Acute exacerbation of CHF (congestive heart failure): As evidenced by elevated BNP, crackles on exam and pleural effusion, LE edema Currently on Lasix 80 mg IV every 12 hours, metolazone added, appreciate renal recommendations CHF may have been precipitated by hypertensive urgency with SBP >200 upon admission, reports at home BP ranges ~120/80, better controlled after addition of amlodipine 10 mg p.o. daily. Echocardiogram Normal left ventricular cavity size and markedly increased wall thickness. Severe concentric left ventricular hypertrophy. Mildly decreased decreased left ventricular systolic function.. Left ventricular ejection fraction is estimated at 45-50 %. Grade II diastolic dysfunction, moderately elevated filling pressures. Need to be established with cardiology as outpatient Also reports a past medical history of sleep apnea, does not use CPAP consistently at home, will monitor for hospital use and encourage compliance at home Status: Acute Qualifiers: Heart failure type: diastolic Qualified Code(s): I50.33 - Acute on chronic diastolic (congestive) heart failure (2) Hypertensive urgency: This is now resolved Continue carvedilol 12.5 p.o. twice daily, amlodipine 10 mg p.o. daily Status: Acute (3) Elevated troponin: negative serial delta, no acute changes on EKG, less concerning for AMI reports stess test and angigram perfromed in Jun 2019 at [facility], records requested started on asa 81mg po daily primary prevention 10 year ASCVD risk score 34%--> started atorvastatin Echocardiogram as noted above, follow-up as outpatient Status: Acute (4) Acute kidney injury superimposed on CKD: Baseline cr 1.8-2.2 Increased to 2.8 this current admission, creatinine stable today Appreciate nephrology recommendations Status: Acute (5) Pleural effusion, left: Persistent since 04/2020, less likely consolidative process underlying CT chest without any underlying masses or consolidation, no current indication for antibiotics Status: Acute (6) Hypoxia: likely from CHF and pleural effusion lasix as above less likely PNA CT chest with persistent pleural effusion Status: Acute (7) Anemia: check iron panel, b12 and folate Status: Acute Qualifiers: Anemia type: unspecified type Qualified Code(s): D64.9 - Anemia, unspecified (8) Asymptomatic bacteriuria: Patient has chronic asymptomatic bacteriuria. Urine culture with Enterococcus durans noted, likely to be a colonizer. Denies dysuria, frequency. Started on amoxicillin per nephrology, will aim for short course of 3 days if thought to be contributing to current JOSE LUIS. Status: Acute Additional A&P Information + D dimer with hypoxia: Cannot obtain CTA chest to avoid contrast injury in CKD, V/q scan may not be revealing in the presence of left pleural effusion and CHF, lower extremity Doppler negative for DVT, lower suspicion for PE. Dispo: Home with HH when ready DVT prophylaxis: Lovenox Full code Attestations Medical Necessity Statement*: CHF exacerbation, needs iv diureeis, optimization of volume status and respiratory status Coding Level of Care Code Acute Briquette Operator for [facility] Fwd Diagnoses Acute exacerbation of CHF (congestive heart failure) I50.33 Heart failure type: diastolic Hypertensive urgency I16.0 Elevated troponin R77.8 Acute kidney injury superimposed on CKD N17.9; N18.9 Pleural effusion, left J90 Hypoxia R09.02 Anemia D64.9 Anemia type: unspecified type Asymptomatic bacteriuria R82.71
[2020-09-18 16:48] LABS: Glucose Point of Care 157 mg/dL (70-110)
[2020-09-18] MEDS: enoxaparin 30 mg/0.3 mL Syringe SUBCUT (18:43)
[2020-09-18] MEDS: sertraline 50 mg Tablet PO (18:44)
[2020-09-18 20:21] LABS: Glucose Point of Care 189 mg/dL (70-110)
[2020-09-18] MEDS: atorvastatin 40 mg Tablet PO (21:08)
[2020-09-18] MEDS: diphenhydrAMINE 25 mg Capsule PO (21:31)
[2020-09-18] MEDS: acetaminophen 325 mg Tablet 650 MG PO (21:31)
[2020-09-19] VITALS (10 sets, daily range): BP systolic 135–180; BP diastolic 55–76; PULSE 58–71; RESP 16–29; TEMP 36.7–36.9; O2SAT 94–96
[2020-09-19 05:01] LABS: Basophils # 0.1 10^3/uL (0.0-0.1); Basophils % 0.8 %; Eosinophils # 0.3 10^3/uL (0.0-0.8); Eosinophils % 3.9 %; Hematocrit 30.4 % (37.0-47.0); Hemoglobin 9.2 g/dL (11.5-15.3); Lymphocytes # 2.4 10^3/uL (0.8-4.8); Lymphocytes % 29.7 %; Mean Corpuscular HGB Conc 30.3 g/dL (30.0-36.0); Mean Corpuscular Hemoglobin 26.2 pg (28.0-34.0); Mean Corpuscular Volume 86.6 fL (81-99); Monocytes # 1.5 10^3/uL (0.2-0.9); Monocytes % 18.3 %; Neutrophils # 3.73 10^3/uL (1.8-7.7); Nucleated Red Blood Cells % 0 %; Platelet Count 339 10^3/cmm (130-400); Red Blood Count 3.51 10^6/uL (4.1-5.3); Red Cell Distribution Width 16.5 % (12.1-15.1); White Blood Count 7.9 10^3/uL (4.0-10.0)
[2020-09-19 05:28] LABS: Alanine Aminotransferase 11 U/L (0-33); Albumin Level 2.9 g/dL (3.5-5.2); Alkaline Phosphatase 55 IU/L (35-105); Aspartate Amino Transferase 18 U/L (0-32); Blood Urea Nitrogen 55 mg/dL (8-23); Calcium 8.1 mg/dL (8.5-10.5); Carbon Dioxide 23 mmol/L (22-29); Chloride 108 mmol/L (98-107); Globulin 2.6 g/dL (1.3-4.6); Glucose 119 mg/dL (65-115); Osmolality Calculated 306 mOsm/kg (285-295); Sodium 140 mmol/L (136-145); Total Bilirubin 0.2 mg/dL (0.15-1.2); Total Protein 5.5 g/dL (6.6-8.7)
[2020-09-19 06:59] LABS: Glucose Point of Care 120 mg/dL (70-110)
[2020-09-19] MEDS: amlodipine 10 mg Tablet PO (09:14)
[2020-09-19] MEDS: aspirin 81 mg EC Tablet PO (09:14)
[2020-09-19] MEDS: amoxicillin 500 mg Capsule PO ×3 (09:17→21:00)
[2020-09-19] MEDS: carvedilol 12.5 mg Tablet PO ×2 (09:26→20:52)
--- NOTE | 2020-09-19 10:15 | PC.NURSE ---
Notified Physician regarding pt's medications Pt has a schedule IVP Lasix 80 mg and Metolazone 5 mg P.O. Pt's creatinine level is 3.1/BUN 55. Can we hold these meds and wait for retirement manager? Dr. Granados is okay to hold these meds and order to call the retirement manager.
--- NOTE | 2020-09-19 10:30 | PC.NURSE ---
Notified reference and instruction librarian [facility] regarding the need to continue the dose of IVP lasix this morning or holding it for now. Updated reference and instruction librarian on pt's creatinine:bun levels today. We will wait for the call back and follow-up.
--- NOTE | 2020-09-19 12:15 | PC.NURSE ---
Telenephrologist called Dr. Saunders ammonia refrigeration worker called via phone and order to give the Lasix and Metolazone. He will call at 1 pm.
[2020-09-19] MEDS: FUROsemide 10 mg/mL SDV 10mL 80 MG IVP ×2 (12:26→21:00)
[2020-09-19] MEDS: metOLazone 5 MG Tablet PO (12:27)
[2020-09-19 12:28] LABS: Glucose Point of Care 223 mg/dL (70-110)
--- NOTE | 2020-09-19 14:06 | XRR_ITS ---
PROCEDURE INFORMATION: Exam: XR Chest Exam date and time: 09/19/2020 2:11 PM Age: 74 years old Clinical indication: Other: Chf; Additional info: Follow-up chf TECHNIQUE: Imaging protocol: XR of the chest Views: 1 view. COMPARISON: CT chest con [id number] 09/15/2020 11:01 PM FINDINGS: Lungs: Unchanged bibasilar consolidation left much greater than right is present, consistent with atelectasis, edema, or pneumonia. There is vascular congestion with cephalization of flow and interstitial edema compatible with CHF improving compared to the prior chest CT. There is improved cephalization of flow, airspace and interstitial edema. Pleural spaces: Unchanged small to moderate size left pleural effusion is noted. Unchanged small right pleural effusion. Heart/Mediastinum: The heart is enlarged. Bones/joints: No acute abnormality. XR/XR chest 1V portable [id number] IMPRESSION: 1. Improving CHF compared to the prior chest CT. 2. Unchanged bibasilar consolidation left much greater than right is present, consistent with atelectasis, edema, or pneumonia. Unchanged pleural effusions.
--- NOTE | 2020-09-19 15:17 | PM.PN ---
Subjective Subjective: Interval history: no new complaints today, titrated down to 0.5lpm NC, saturating 96%, cr worsened today to 3.1, urine output 1.6L , improving LE edema, still with significant dyspnea on minimal movement Medications: Reviewed: Yes Vitals/I&O/Wt Last Vital Signs Temp 98.0 F 09/19/20 08:32 Pulse 68 09/19/20 12:08 Resp 29 H 09/19/20 12:08 BP 139/76 09/19/20 12:08 Pulse Ox 96 09/19/20 12:08 09/19/20 09/19/20 09/19/20 06:59 14:59 22:59 Intake Total 590 / 590 Output Total 500 / 2250 550 / 550 Balance -500 / -1688 40 / 40 Weight last 48 hrs Weight 107.547 kg Weight 111.272 kg Physical Exam Narrative: EXAM NARRATIVE: GEN: Awake, alert and oriented, no acute distress CVS: S1S2 N RS: CTA B/L Abd: Soft, nt/nd , bs+ PIPE BOWL PAINT TRIMMER: no focal neuro deficits Extremity improving lower extremity edema Urinary Catheter Management^: Jesus: Cath Placed During This Visit: yes Reason for Continuing Indwelling Catheter: Accurate Measurement of Urinary Output in Critically Ill Patients Urinary Catheter Date of Insertion: 09/15/20 Urinary Catheter Time of Insertion: 14:26 Data : 09/19/20 04:41 09/19/20 04:41 A&P Assessment and plan (1) Acute exacerbation of CHF (congestive heart failure): Currently on Lasix 80 mg IV every 12 hours + metolazone added, appreciate renal recommendations Echocardiogram Normal left ventricular cavity size and markedly increased wall thickness. Severe concentric left ventricular hypertrophy. Mildly decreased decreased left ventricular systolic function.. Left ventricular ejection fraction is estimated at 45-50 %. Grade II diastolic dysfunction, moderately elevated filling pressures. Needs to be established with cardiology as outpatient Also reports a past medical history of sleep apnea, does not use CPAP consistently at home, will monitor for hospital use and encourage compliance at home Status: Acute Qualifiers: Heart failure type: combined systolic and diastolic Qualified Code(s): I50.43 - Acute on chronic combined systolic (congestive) and diastolic (congestive) heart failure (2) Hypertensive urgency: This is now resolved Continue carvedilol 12.5 p.o. twice daily, amlodipine 10 mg p.o. daily Status: Acute (3) Elevated troponin: negative serial delta, no acute changes on EKG, less concerning for AMI reports stess test and angigram perfromed in Jun 2019 at [facility], records requested , not received yet started on asa 81mg po daily primary prevention 10 year ASCVD risk score 34%--> started atorvastatin Echocardiogram as noted above, follow-up as outpatient Status: Acute (4) Acute kidney injury superimposed on CKD: Baseline cr 1.8-2.2 Increased to 3.1 now Appreciate nephrology recommendations Status: Acute (5) Pleural effusion, left: Persistent since 04/2020, less likely consolidative process underlying CT chest without any underlying masses or consolidation, no current indication for antibiotics Status: Acute (6) Hypoxia: likely from CHF and pleural effusion lasix as above less likely PNA CT chest with persistent pleural effusion Status: Acute (7) Anemia: 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 Urine culture with Enterococcus durans noted, likely to be a colonizer. Denies dysuria, frequency. Started on amoxicillin per nephrology, will aim for short course of 3 days Status: Acute Additional A&P Information + D dimer with hypoxia: Cannot obtain CTA chest to avoid contrast injury in CKD, V/q scan may not be revealing in the presence of left pleural effusion and CHF, lower extremity Doppler negative for DVT, lower suspicion for PE. Dispo: Home with HH when ready DVT prophylaxis: Lovenox Full code Attestations Medical Necessity Statement*: ongoing need for diuresis management for CHF Coding Level of Care Code Acute Power Shovel Mechanic for [facility] Fwd Diagnoses Acute exacerbation of CHF (congestive heart failure) I50.43 Heart failure type: combined systolic and diastolic Hypertensive urgency I16.0 Elevated troponin R77.8 Acute kidney injury superimposed on CKD N17.9; N18.9 Pleural effusion, left J90 Hypoxia R09.02 Anemia D64.9 Anemia type: unspecified type Asymptomatic bacteriuria R82.71
[2020-09-19 17:21] LABS: Glucose Point of Care 155 mg/dL (70-110)
--- NOTE | 2020-09-19 17:55 | P.PN_ITS ---
Subjective Subjective: Interval history: I am seeing her in follow up for her renal failure and fluid management. Patient feeling better, shortness of breath improving Medications: Reviewed: Yes Vitals/I&O/Wt Last Vital Signs Temp 98.0 F 09/19/20 08:32 Pulse 69 09/19/20 14:00 Resp 29 H 09/19/20 12:08 BP 139/76 09/19/20 12:08 Pulse Ox 96 09/19/20 12:08 09/19/20 09/19/20 09/19/20 06:59 14:59 22:59 Intake Total 590 / 590 Output Total 500 / 2250 550 / 550 Balance -500 / -1688 40 / 40 Weight last 48 hrs Weight 107.547 kg Weight 111.272 kg Physical Exam Const: COMMON NORMALS: no acute distress, patient oriented x3 and alert GENERAL APPEARANCE: cooperative ORIENTATION/CONSCIOUSNESS: Yes awake Resp: AUSCULTATION: crackles Cardio: COMMON NORMALS: S1 normal heart sound present and S2 normal heart sound present HEART SOUNDS: S1 normal heart sound present and S2 normal heart sound present GI: AUSCULTATION: Yes normoactive bowel sounds Extremity: GENERAL: Yes edema Neuro: COMMON NORMALS: patient oriented x3 SENSORIUM/ORIENTATION: Yes alert Skin: COMMON NORMALS: no rashes or lesions noted GENERAL SKIN EXAM: no rashes or lesions noted Urinary Catheter Management^: Jesus: Cath Placed During This Visit: yes Reason for Continuing Indwelling Catheter: Accurate Measurement of Urinary Output in Critically Ill Patients Urinary Catheter Date of Insertion: 09/15/20 Urinary Catheter Time of Insertion: 14:26 Data : 09/19/20 04:41 09/19/20 04:41 A&P Assessment and plan (1) Acute kidney injury superimposed on CKD: Will monitor kidney function closely while we adjust her diuretics Status: Acute (2) Acute exacerbation of CHF (congestive heart failure): Responding well to iv lasix and metolazone, need to be on fluid restriction of 1000ml/day and strict low salt diet. Status: Acute Qualifiers: Heart failure type: combined systolic and diastolic Qualified Code(s): I50.43 - Acute on chronic combined systolic (congestive) and diastolic (congestive) heart failure (3) Hypertension: BP under control Status: Acute Qualifiers: Hypertension type: essential hypertension Qualified Code(s): I10 - Essential (primary) hypertension (4) Anemia: Monitor hb closely Status: Acute Qualifiers: Anemia type: unspecified type Qualified Code(s): D64.9 - Anemia, unspe cified Attestations Medical Necessity Statement*: CHF exacerbation, Acute on ckd Coding Level of Care Code Acute Construction Equipment Operator for g Fwd Diagnoses Acute kidney injury superimposed on CKD N17.9; N18.9 Acute exacerbation of CHF (congestive heart failure) I50.43 Heart failure type: combined systolic and diastolic Hypertension I10 Hypertension type: essential hypertension Anemia D64.9 Anemia type: unspecified type
[2020-09-19] MEDS: sertraline 50 mg Tablet PO (18:37)
[2020-09-19] MEDS: enoxaparin 30 mg/0.3 mL Syringe SUBCUT (18:38)
[2020-09-19] MEDS: acetaminophen 325 mg Tablet 650 MG PO (18:45)
[2020-09-19 20:25] LABS: Glucose Point of Care 198 mg/dL (70-110)
[2020-09-19] MEDS: atorvastatin 40 mg Tablet PO (20:52)
[2020-09-19] MEDS: diphenhydrAMINE 25 mg Capsule PO (21:13)
[2020-09-20] VITALS (11 sets, daily range): BP systolic 132–171; BP diastolic 58–75; PULSE 57–65; RESP 15–25; TEMP 36.4–37.2; O2SAT 90–96
[2020-09-20 05:21] LABS: Basophils # 0.1 10^3/uL (0.0-0.1); Eosinophils # 0.3 10^3/uL (0.0-0.8); Eosinophils % 3.4 %; Hematocrit 31.8 % (37.0-47.0); Hemoglobin 9.6 g/dL (11.5-15.3); Lymphocytes # 1.9 10^3/uL (0.8-4.8); Lymphocytes % 22.8 %; Mean Corpuscular HGB Conc 30.2 g/dL (30.0-36.0); Mean Corpuscular Hemoglobin 26.6 pg (28.0-34.0); Mean Corpuscular Volume 88.1 fL (81-99); Mean Platelet Volume 11.3 fL (7.4-10.4); Monocytes # 1.5 10^3/uL (0.2-0.9); Monocytes % 17.9 %; Neutrophils % 54.7 %; Nucleated Red Blood Cells % 0 %; Platelet Count 336 10^3/cmm (130-400); Red Blood Count 3.61 10^6/uL (4.1-5.3); Red Cell Distribution Width 16.1 % (12.1-15.1); White Blood Count 8.4 10^3/uL (4.0-10.0)
[2020-09-20 05:51] LABS: Alanine Aminotransferase 15 U/L (0-33); Albumin Level 3.1 g/dL (3.5-5.2); Alkaline Phosphatase 65 IU/L (35-105); Anion Gap 16.8 (5-19); Aspartate Amino Transferase 18 U/L (0-32); Blood Urea Nitrogen 64 mg/dL (8-23); Calcium 8.3 mg/dL (8.5-10.5); Carbon Dioxide 23 mmol/L (22-29); Chloride 106 mmol/L (98-107); Globulin 2.9 g/dL (1.3-4.6); Glucose 98 mg/dL (65-115); Osmolality Calculated 310 mOsm/kg (285-295); Potassium 4.8 mmol/L (3.5-5.1); Sodium 141 mmol/L (136-145); Total Bilirubin 0.3 mg/dL (0.15-1.2)
[2020-09-20 06:46] LABS: Glucose Point of Care 128 mg/dL (70-110)
[2020-09-20 08:02] LABS: Glucose Point of Care 124 mg/dL (70-110)
--- NOTE | 2020-09-20 08:37 | PC.SOCIAL ---
IMM Update Pg.2 of IMM updated and reviewed with patient who verbalized understanding. Copy provided.
[2020-09-20] MEDS: amoxicillin 500 mg Capsule PO ×2 (08:45→16:50)
[2020-09-20] MEDS: aspirin 81 mg EC Tablet PO (08:45)
[2020-09-20] MEDS: amlodipine 10 mg Tablet PO (08:45)
[2020-09-20] MEDS: carvedilol 12.5 mg Tablet PO ×2 (08:45→22:02)
[2020-09-20] MEDS: FUROsemide 10 mg/mL SDV 10mL 80 MG IVP ×2 (11:02→20:36)
[2020-09-20 11:17] LABS: Glucose Point of Care 160 mg/dL (70-110)
--- NOTE | 2020-09-20 13:24 | PC.NURSE ---
Talked to telenephrologist Dr. Saunders seen the pt. Discussion on pt's I and O's. Informed that i held pt's metolazone this morning due to pt's creatinine level today. Dr. Saunders telephone order that it is okay to give the metolazone. Received telephone order to give oral Metolazone 5 mg now.
[2020-09-20] MEDS: polyethylene glycol 3350 Pkt 17 gm PO (14:17)
[2020-09-20] MEDS: sennosides-docusate Tablet 1 TAB PO (14:18)
[2020-09-20] MEDS: metOLazone 5 MG Tablet PO (14:18)
--- NOTE | 2020-09-20 15:13 | PC.NURSE ---
pt ambulated from her room down to hallway Assisted pt in walking down hallways using a walker. Pt stated. I'm just shaky and weak on my legs since i have not been walking much for 6 days. My breathing is much better today. SpO2 on room air and activity is 88-89%. Pt stated she is mildly short of breath during activity. Dr. Granados is at bedside.
--- NOTE | 2020-09-20 15:55 | P.PN_ITS ---
Subjective Subjective: Interval history: I am seeing her in follow up for her renal failure. She is feeling better. No nausea or vomiting. Shortness of breath improving Medications: Reviewed: Yes Vitals/I&O/Wt Last Vital Signs Temp 97.6 F 09/20/20 15:31 Pulse 62 09/20/20 15:31 Resp 24 H 09/20/20 15:31 BP 156/67 09/20/20 15:31 Pulse Ox 91 09/20/20 15:31 09/20/20 09/20/20 09/20/20 06:59 14:59 22:59 Intake Total 600 / 600 Output Total 1000 / 1550 1000 / 1000 Balance -1000 / -620 -400 / -400 Weight last 48 hrs Weight 111.402 kg Weight 107.547 kg Physical Exam Const: COMMON NORMALS: no acute distress, patient oriented x3 and alert GENERAL APPEARANCE: cooperative and comfortable ORIENTATION/CONSCIOUSNESS: Yes awake Resp: AUSCULTATION: crackles Cardio: COMMON NORMALS: S1 normal heart sound present and S2 normal heart sound present HEART SOUNDS: S1 normal heart sound present and S2 normal heart sound present GI: AUSCULTATION: Yes normoactive bowel sounds Extremity: GENERAL: Yes edema Neuro: COMMON NORMALS: patient oriented x3 SENSORIUM/ORIENTATION: Yes alert Skin: COMMON NORMALS: no rashes or lesions noted GENERAL SKIN EXAM: no rashes or lesions noted Urinary Catheter Management^: Jesus: Cath Placed During This Visit: yes Reason for Continuing Indwelling Catheter: Acute Urinary Retention or Obstruction Urinary Catheter Date of Insertion: 09/15/20 Urinary Catheter Time of Insertion: 14:26 Data : 09/20/20 03:46 09/20/20 03:46 A&P Assessment and plan (1) Acute kidney injury superimposed on CKD: Will monitor kidney function closely while her diuretics are being adjusted. Avoid new nephrotoxins and wide fluctuation in BP Status: Acute (2) Acute exacerbation of CHF (congestive heart failure): Will switch iv lasix to po tommorrow Status: Acute Qualifiers: Heart failure type: combined systolic and diastolic Qualified Code(s): I50.43 - Acute on chronic combined systolic (congestive) and diastolic (congestive) heart failure (3) Hypertension: BP under control Status: Acute Qualifiers: Hypertension type: essential hypertension Qualified Code(s): I10 - Essential (primary) hypertension (4) Anemia: Follow hb Status: Acute Qualifiers: Anemia type: unspecified type Qualified Code(s): D64.9 - Anemia, unspecified Attestations Medical Necessity Statement*: CHF exacerbation, Acute on ckd Coding Level of Care Code Acute Artist Consultant for g Fwd Diagnoses Acute kidney injury superimposed on CKD N17.9; N18.9 Acute exacerbation of CHF (congestive heart failure) I50.43 Heart failure type: combined systolic and diastolic Hypertension I10 Hypertension type: essential hypertension Anemia D64.9 Anemia type: unspecified type
--- NOTE | 2020-09-20 16:33 | P.PN_ITS ---
Subjective Subjective: Interval history: Creatinine at 3.2 today, urine output 2 L, oxygen requirement improved to 1 L/min, saturating 92 to 93% on room air when completely at rest, dropped to 89% with minimal exertion and walking to the door of her room. Still complaining of significant dyspnea and pleuritic type left- sided chest pain. Diuresis with IV Lasix overall not significantly changed her left-sided pleural effusion. Medications: Reviewed: Yes Vitals/I&O/Wt Last Vital Signs Temp 97.6 F 09/20/20 15:31 Pulse 62 09/20/20 15:31 Resp 24 H 09/20/20 15:31 BP 156/67 09/20/20 15:31 Pulse Ox 91 09/20/20 15:31 09/20/20 09/20/20 09/20/20 06:59 14:59 22:59 Intake Total 600 / 600 Output Total 1000 / 1550 1000 / 1000 Balance -1000 / -620 -400 / -400 Weight last 48 hrs Weight 111.402 kg Weight 107.547 kg Physical Exam Narrative: EXAM NARRATIVE: GEN: Awake, alert and oriented, no acute distress CVS: S1S2 N RS: Reduced air entry LLL Abd: Soft, nt/nd , bs+ DRINKING WATER TECHNICIAN: no focal neuro deficits Urinary Catheter Management^: Jesus: Cath Placed During This Visit: yes Reason for Continuing Indwelling Catheter: Acute Urinary Retention or Obstruction Urinary Catheter Date of Insertion: 09/15/20 Urinary Catheter Time of Insertion: 14:26 Data : 09/20/20 03:46 09/20/20 03:46 A&P Assessment and plan (1) Acute exacerbation of CHF (congestive heart failure): Currently on Lasix 80 mg IV every 12 hours + metolazone 5mg po daily, appreciate renal recommendations Echocardiogram Normal left ventricular cavity size and markedly increased wall thickness. Severe concentric left ventricular hypertrophy. Mildly decreased decreased left ventricular systolic function.. Left ventricular ejection fraction is estimated at 45-50 %. Grade II diastolic dysfunction, moderately elevated filling pressures. Needs to be established with cardiology as outpatient Also reports a past medical history of sleep apnea, does not use CPAP consistently at home, will order for hospital use and encourage compliance at home Continues to be dyspneic and c/o left side pleuritic chest pain, USG guided thoracentesis ordered for am with pleural fluid analysis, expect transudate etiology Oxygen requirements improving, at rest is saturating 92 to 93% on room air, saturation dropped to 89% with minimal exertion, requires 1 to 2 L supplemental O2 in this case. Status: Acute Qualifiers: Heart failure type: combined systolic and diastolic Qualified Code(s): I50.43 - Acute on chronic combined systolic (congestive) and diastolic (congestive) heart failure (2) Hypertensive urgency: This is now resolved Continue carvedilol 12.5 p.o. twice daily, amlodipine 10 mg p.o. daily In the evening hours systolic blood pressure trending up to 1 70-1 80 systolic subsequent days. Add Imdur 15 mg p.o. daily in the afternoon and monitor for response Status: Acute (3) Elevated troponin: negative serial delta, no acute changes on EKG, less concerning for AMI reports stess test and [facility] , not received yet started on asa 81mg po daily primary prevention 10 year ASCVD risk score 34%--> started atorvastatin Echocardiogram as noted above, follow-up as outpatient Status: Acute (4) Acute kidney injury superimposed on CKD: Baseline cr 1.8-2.2 Increased to 3.2 now , currently diuresing well, no gross electrolyte abnormalities, no indication for urgent HD at this time Appreciate nephrology recommendations Status: Acute (5) Pleural effusion, left: Persistent since 04/2020, less likely consolidative process underlying CT chest without any underlying masses or consolidation, no current indication for antibiotics thoracentesis in am given ongoing pleuritic pain and persisting dyspnea in spite of improving pulm edema and CHF otherwise. 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 Urine culture with Enterococcus durans noted, likely to be a colonizer. Denies dysuria, frequency. Started on amoxicillin per nephrology, will aim for short course of 3 days , last day today Status: Acute Additional A&P Information + D dimer with hypoxia: Cannot obtain CTA chest to avoid contrast injury in CKD, V/q scan may not be revealing in the presence of left pleural effusion and CHF, lower extremity Doppler negative for DVT, lower suspicion for PE. Dispo: Home with HH vs SNF when ready, PT recommendatiosn appreciated DVT prophylaxis: Lovenox Full code Attestations Medical Necessity Statement*: ongoing need for iv diuersis, JOSE LUIS with rising cr, thoaracentesis Coding Level of Care Code Acute Garden Equipment Mechanic for Chg Fwd Diagnoses Acute exacerbation of CHF (congestive heart failure) I50.43 Heart failure type: combined systolic and diastolic Hypertensive urgency I16.0 Elevated troponin R77.8 Acute kidney injury superimposed on CKD N17.9; N18.9 Pleural effusion, left J90 Hypoxia R09.02 Anemia D64.9 Anemia type: unspecified type Asymptomatic bacteriuria R82.71
[2020-09-20 16:40] LABS: Glucose Point of Care 197 mg/dL (70-110)
[2020-09-20] MEDS: TRAMadol 50 mg Tablet PO (18:15)
[2020-09-20] MEDS: nystatin powder 15 gm Btl 1 APPLIC TOPICAL (18:16)
[2020-09-20] MEDS: enoxaparin 30 mg/0.3 mL Syringe SUBCUT (18:16)
[2020-09-20] MEDS: sertraline 50 mg Tablet PO (18:18)
[2020-09-20 20:02] LABS: Glucose Point of Care 209 mg/dL (70-110)
[2020-09-20] MEDS: atorvastatin 40 mg Tablet PO (20:35)
[2020-09-20] MEDS: diphenhydrAMINE 25 mg Capsule PO (20:35)
[2020-09-21] VITALS (10 sets, daily range): BP systolic 124–152; BP diastolic 54–65; PULSE 57–66; RESP 15–21; TEMP 36.6–36.7; O2SAT 94–98; BMI 42.4
[2020-09-21 05:22] LABS: Basophils # 0.1 10^3/uL (0.0-0.1); Basophils % 0.9 %; Eosinophils # 0.3 10^3/uL (0.0-0.8); Eosinophils % 4.4 %; Hematocrit 30.1 % (37.0-47.0); Hemoglobin 9.3 g/dL (11.5-15.3); Lymphocytes % 26.5 %; Mean Corpuscular HGB Conc 30.9 g/dL (30.0-36.0); Mean Corpuscular Hemoglobin 26.6 pg (28.0-34.0); Mean Platelet Volume 11.8 fL (7.4-10.4); Monocytes # 1.3 10^3/uL (0.2-0.9); Monocytes % 16.9 %; Neutrophils # 3.82 10^3/uL (1.8-7.7); Nucleated Red Blood Cells % 0.3 %; Platelet Count 350 10^3/cmm (130-400); Red Cell Distribution Width 16.1 % (12.1-15.1); White Blood Count 7.5 10^3/uL (4.0-10.0)
[2020-09-21 05:46] LABS: INR 1.19 (0.8-1.2)
[2020-09-21 05:54] LABS: Alanine Aminotransferase 17 U/L (0-33); Alkaline Phosphatase 72 IU/L (35-105); Anion Gap 16.5 (5-19); Aspartate Amino Transferase 18 U/L (0-32); Blood Urea Nitrogen 71 mg/dL (8-23); Calcium 8.4 mg/dL (8.5-10.5); Carbon Dioxide 23 mmol/L (22-29); Chloride 101 mmol/L (98-107); Globulin 2.8 g/dL (1.3-4.6); Glucose 108 mg/dL (65-115); Lactate Dehydrogenase 163 U/L (135-214); Osmolality Calculated 303 mOsm/kg (285-295); Potassium 4.5 mmol/L (3.5-5.1); Sodium 136 mmol/L (136-145); Total Bilirubin 0.3 mg/dL (0.15-1.2); Total Protein 5.8 g/dL (6.6-8.7)
[2020-09-21 06:49] LABS: Glucose Point of Care 126 mg/dL (70-110)
--- NOTE | 2020-09-21 08:00 | US_ITS ---
WS: [id number] ULTRASOUND-GUIDED THORACENTESIS, LEFT. HISTORY: left pleural effusion Procedure, risks, and complications were explained to the patient. With the patient in an upright pos ition, the skin over the LEFT posterior thorax was cleansed with ChloraPrep and anesthetized with 1% buffered lidocaine. A 5 [place] Yueh needle is inserted into the pleural fluid without complication. A pproximately 700 cc of clear pleural fluid is removed without difficulty. Specimen collected for analysis as requested. / thoracentesis [id number] IMPRESSION: 1. LEFT thoracentesis yielding 700 cc of fluid. 2. Chest radiograph to follow to evaluate for pneumothorax. 3. Pleural fluid collected for analysis as requested.
--- NOTE | 2020-09-21 08:04 | PC.NURSE ---
aspirin held by order of ultrasound...due to upcoming thoracentesis
[2020-09-21] MEDS: polyethylene glycol 3350 Pkt 17 gm PO (08:24)
[2020-09-21] MEDS: nystatin powder 15 gm Btl 1 APPLIC TOPICAL (08:25)
[2020-09-21] MEDS: sennosides-docusate Tablet 1 TAB PO (08:25)
[2020-09-21] MEDS: carvedilol 12.5 mg Tablet PO ×2 (08:26→21:04)
[2020-09-21] MEDS: amlodipine 10 mg Tablet PO (08:26)
--- NOTE | 2020-09-21 09:36 | PM.PN ---
Subjective Subjective: Interval history: Patient was seen and examined today in the morning.SOB has improved.LOS : - 7.9 Ls SCR is worsening, as well as BUN. Will hold am dose of lasix as well as metolazone. Due for lt sided thoracentesis. Medications: Reviewed: Yes Vitals/I&O/Wt Last Vital Signs Temp 98.0 F 09/21/20 09:03 Pulse 60 09/21/20 09:03 Resp 15 09/21/20 09:03 BP 152/65 09/21/20 09:03 Pulse Ox 95 09/21/20 09:03 09/20/20 09/21/20 09/21/20 22:59 06:59 14:59 Intake Total 444 / 1044 240 / 1284 Output Total 1800 / 2800 Balance 444 / 44 -1560 / -1516 Weight last 48 hrs Weight 115.666 kg Weight 115.666 kg Weight 111.402 kg Physical Exam Const: COMMON NORMALS: patient oriented x3 HENMT: COMMON NORMALS: normocephalic and atraumatic HEAD & SCALP: normocephalic and atraumatic Resp: COMMON NORMALS: normal respiratory effort EFFORT & INSPECTION: Yes symmetric chest movement OTHER: Diminished Air entry LLL Cardio: COMMON NORMALS: regular rate, regular rhythm, S1 normal heart sound present, S2 normal heart sound present, No gallops present (Cardio), No murmurs present (Cardio), No rub (Cardio) and Peripheral pulses 2+ throughout RATE: regular rate RHYTHM: regular rhythm HEART SOUNDS: S1 normal heart sound present and S2 normal heart sound present PERIPHERAL PULSES: Peripheral pulses 2+ throughout GI: COMMON NORMALS: Normal to inspection, nondistended, normoactive bowel sounds present, Soft to palpation, non-tender, No hepatosplenomegaly present and no masses AUSCULTATION: Yes normoactive bowel sounds PALPATION: Yes Soft to palpation and Yes No hepatosplenomegaly present RECTAL EXAM: deferred Extremity: COMMON NORMALS: no clubbing, cyanosis or edema and no pedal edema Neuro: COMMON NORMALS: patient oriented x3 Urinary Catheter Management^: Jesus: Cath Placed During This Visit: yes Reason for Continuing Indwelling Catheter: Other Urinary Catheter Date of Insertion: 09/15/20 Urinary Catheter Time of Insertion: 14:26 Data : 09/21/20 04:05 09/21/20 04:05 A&P Assessment and plan (1) Acute exacerbation of CHF (congestive heart failure): Currently on Lasix 80 mg IV every 12 hours + metolazone 5mg po daily, appreciate renal recommendations Echocardiogram Normal left ventricular cavity size and markedly increased wall thickness. Severe concentric left ventricular hypertrophy. Mildly decreased decreased left ventricular systolic function.. Left ventricular ejection fraction is estimated at 45-50 %. Grade II diastolic dysfunction, moderately elevated filling pressures. Needs to be established with cardiology as outpatient Also reports a past medical history of sleep apnea, does not use CPAP consistently at home, will order for hospital use and encourage compliance at home Continues to be dyspneic and c/o left side pleuritic chest pain, USG guided thoracentesis ordered for am with pleural fluid analysis, expect transudate etiology Oxygen requirements improving, at rest is saturating 92 to 93% on room air, saturation dropped to 89% with minimal exertion, requires 1 to 2 L supplemental O2 in this case. Status: Acute Qualifiers: Heart failure type: combined systolic and diastolic Qualified Code(s): I50.43 - Acute on chronic combined systolic (congestive) and diastolic (congestive) heart failure (2) Hypertensive urgency: This is now resolved Continue carvedilol 12.5 p.o. twice daily, amlodipine 10 mg p.o. daily In the evening hours systolic blood pressure trending up to 1 70-1 80 systolic subsequent days. Add Imdur 15 mg p.o. daily in the afternoon and monitor for response Status: Acute (3) Elevated troponin: negative serial delta, no acute changes on EKG, less concerning for AMI reports stess test and angigram perfromed in Jun 2019 at [facility], records requested , not received yet started on asa 81mg po daily primary prevention 10 year ASCVD risk score 34%--> started atorvastatin Echocardiogram as noted above, follow-up as outpatient Status: Acute (4) Acute kidney injury superimposed on CKD: Baseline cr 1.8-2.2 Increased to 3.1 now , currently diuresing well, no gross electrolyte abnormalities, no indication for urgent HD at this time Appreciate nephrology recommendations Status: Acute (5) Pleural effusion, left: Persistent since 04/2020, less likely consolidative process underlying CT chest without any underlying masses or consolidation, no current indication for antibiotics thoracentesis in am given ongoing pleuritic pain and persisting dyspnea in spite of improving pulm edema and CHF otherwise. Due for U/S Guided Thoracentesis Today. 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 Urine culture with Enterococcus durans noted, likely to be a colonizer. Denies dysuria, frequency. Started on amoxicillin per nephrology, will aim for short course of 3 days , last day today Status: Acute Additional A&P Information + D dimer with hypoxia: Cannot obtain CTA chest to avoid contrast injury in CKD, V/q scan may not be revealing in the presence of left pleural effusion and CHF, lower extremity Doppler negative for DVT, lower suspicion for PE. Dispo: Home with HH vs SNF when ready, PT recommendatiosn appreciated DVT prophylaxis: Lovenox Full code Attestations Medical Necessity Statement*: Patient needs to be in hospital for the management of heart failure,JOSE LUIS, as as well the need draining the lt sided effusion Coding Level of Care Code Acute Rn Radiation Oncology for Chg Fwd Exam Detailed Diagnoses Acute exacerbation of CHF (congestive heart failure) I50.43 Heart failure type: combined systolic and diastolic Hypertensive urgency I16.0 Elevated troponin R77.8 Acute kidney injury superimposed on CKD N17.9; N18.9 Pleural effusion, left J90 Hypoxia R09.02 Anemia D64.9 Anemia type: unspecified type Asymptomatic bacteriuria R82.71
--- NOTE | 2020-09-21 09:44 | PC.CHAP ---
Pastoral Care Encounter/Spiritual Assessment Type of Contact [] Declined neurophysiologist visit [] Patient/Family/Request visit [] Outpatient visit [] Follow-up visit [] Physician referral [] Code/Alert [x] Routine visit [] Staff referral [] Actively dying [] Patient sleeping [] Family support [] [] Out of room [] Palliative care [] [] Receiving care in room [] Pre-surgical visit [] Trauma [] Long length of stay [] ICU visit [] Other: Relational/Emotional Strength [] Patient feels connected with others/family/visitors/staff [] Distress [] Loneliness/isolation [] Abandonment Spirituality of Patient [] Person of Layla [] Attends Mandaen of their Layla [] Believes in Prayer [] Reads Bible or Hoahaoism materials [] There are Spiritual issues to be addressed Statistical Secretary Interventions [x] Prayer [x] Active listening [x] Non-anxious presence [x] Spiritual/emotional support [] Crisis/trauma care [] Spiritual counseling [] Bereavement support [] Provided bereavement packet [] Provided Bible/devotional materials [] Provided toy/stuffed animal, coloring book to patient or family member [] Provided Communion [] Anointing/[place] [] Salvation [x] Completed spiritual assessment [] Other: Impact on Illness or Injury [] Angry [] Fearful [] Anxious [] Often cries [] Exhaustion [] Unable to work [] Unable to attend presybeterian [] Unable to walk/stand [] Unable to read [] Unable to drive [] Unable to eat/drink [] Unable to sleep [] Unable to be with family [] Patient intubated [] Other: Summary feeling stronger... hoping to return home soon Time spent with patient 10 min
--- NOTE | 2020-09-21 10:42 | P.PN_ITS ---
Subjective Subjective: Interval history: Mrs Rockwell is seen at bedside today via telemedicine. She feels well, and is making a considerable amount of urine in response to diuretic therapy. She denies shortness of breath at rest, however does have some dyspnea on exertion. Edema seems to be improving. Vitals/I&O/Wt Last Vital Signs Temp 98.0 F 09/21/20 09:03 Pulse 60 09/21/20 09:03 Resp 15 09/21/20 09:03 BP 152/65 09/21/20 09:03 Pulse Ox 95 09/21/20 09:03 09/20/20 09/21/20 09/21/20 22:59 06:59 14:59 Intake Total 444 / 1044 240 / 1284 Output Total 1800 / 2800 400 / 400 Balance 444 / 44 -1560 / -1516 -400 / -400 Weight last 48 hrs Weight 115.666 kg Weight 115.666 kg Weight 111.402 kg Physical Exam Narrative: EXAM NARRATIVE: Constitutional: Awake, comfortable HEENT: Wet mucosa, no jvp, non icteric Lungs: Bilaterally decreased air entry without discernible wheeze, rales in all lung zones CVS: S1 S2, no murmurs Abdo: Soft, BS ok Ext 4: Minimal edema, peripheral perfusion with no cyanosis Neurological: Grossly non-focal Urinary Catheter Management^: Jesus: Cath Placed During This Visit: yes Reason for Continuing Indwelling Catheter: Other Urinary Catheter Date of Insertion: 09/15/20 Urinary Catheter Time of Insertion: 14:26 Data : 09/21/20 04:05 09/21/20 04:05 A&P Additional A&P Information 1. Acute on chronic kidney disease. 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 Acute kidney injury component likely also in part due to cardiorenal hemodynamics. Continue with diuretics, creatinine drifting down with these on board. Ideally I would like her to be on losartan prior to discharge to ensure that she can tolerate this from a renal perspective. I will start 25 mg a day. A.m. labs. Strict Is and Os 2. Lytes are well balanced 3. Anemia of CKD Hb drifting down, will continue to monitor 4. Hemodynamics look good 5. Pleural effusion pending thoracentesis Tonny Rodrigues MD Nephrology [phone] Patient seen and examined via telemedicine, with the assistance of the bedside RN > 25 min spent in evaluation and mgmt of patient Attestations Medical Necessity Statement*: Eval for JOSE LUIS Coding Level of Care Code Acute Molybdenum Steamer Operator for Ivett Koo
[2020-09-21] MEDS: losartan 50 mg Tablet 25 MG PO (10:55)
[2020-09-21 11:21] LABS: Glucose Point of Care 132 mg/dL (70-110)
[2020-09-21] MEDS: lactulose oral liq 20 gm/30 mL UDC PO (12:39)
--- NOTE | 2020-09-21 13:20 | PC.NURSE ---
09/20/20 morning doses of metolazone and lasix held per dr roach...due to increasing bun and creat.
--- NOTE | 2020-09-21 15:57 | XR_ITS ---
WS: [id number] PORTABLE CHEST HISTORY: s/p left thoracentesis COMPARISON: 09/19/2020 No pneumothorax status post LEFT thoracentesis. Very small amount of residual LEFT pleural fluid. No RIGHT pleural effusion identified. Cardiac size: Mildly enlarged cardiac silhouette. Mediastinum/Aorta: Mild atherosclerosis aorta. No osseous abnormality seen. XR/XR chest 1V portable [id number] IMPRESSION: 1. No pneumothorax status post LEFT thoracentesis. 2. Very small residual LEFT pleural effusion. 3. No RIGHT pleural effusion.
[2020-09-21 17:04] LABS: Glucose Point of Care 157 mg/dL (70-110)
--- NOTE | 2020-09-21 17:17 | PC.NURSE ---
dr kandi schulz performed lll thoracentesis at 1600.pt tolerated procedure well.600 cc of straw colored fluid aspirated and taken to lab by u/s tech.pcxr taken after procedure.pt tolerated procedure well.dr cordova ordered to hold tonights dose of lovenox due to thoracentesis late this afternoon.
[2020-09-21] MEDS: isosorbide mononitrate ER 30 mg Tablet 15 MG PO (17:37)
[2020-09-21] MEDS: sertraline 50 mg Tablet PO (17:43)
[2020-09-21 18:19] LABS: LDH Pleural Fluid 64 U/L; Pleural Fluid Albumin 1.2 g/dL; Pleural Fluid Cholesterol 33 mg/dL; Pleural Fluid Triglycerides 25 mg/dL; Total Protein Pleural Fluid 1.8 g/dL
--- NOTE | 2020-09-21 19:15 | PC.NURSE ---
Received bed side shift report from off going nurse. Pt's plan of care reviewed. Pt is sitting up in chair. Respirations are even and unlabored. No s/sx of distress noted. Pt is alert and oriented and able to make her own decisions. Pt denies any pains or concerns at this time. Will continue to monitor pt.
[2020-09-21] MEDS: FUROsemide 10 mg/mL SDV 10mL 80 MG IVP (21:03)
[2020-09-21] MEDS: atorvastatin 40 mg Tablet PO (21:03)
[2020-09-21] MEDS: TRAMadol 50 mg Tablet PO (21:04)
[2020-09-21] MEDS: diphenhydrAMINE 25 mg Capsule PO (21:04)
[2020-09-21 21:18] LABS: Glucose Point of Care 226 mg/dL (70-110)
[2020-09-22] VITALS (12 sets, daily range): BP systolic 118–141; BP diastolic 53–70; PULSE 57–64; RESP 16–26; TEMP 36.4–36.9; O2SAT 93–95; BMI 40.1
[2020-09-22 05:31] LABS: Basophils # 0.1 10^3/uL (0.0-0.1); Basophils % 1.2 %; Eosinophils # 0.3 10^3/uL (0.0-0.8); Eosinophils % 4.2 %; Hematocrit 29.3 % (37.0-47.0); Lymphocytes # 1.3 10^3/uL (0.8-4.8); Lymphocytes % 18.4 %; Mean Corpuscular HGB Conc 30.7 g/dL (30.0-36.0); Mean Corpuscular Hemoglobin 26.2 pg (28.0-34.0); Mean Corpuscular Volume 85.2 fL (81-99); Mean Platelet Volume 11.2 fL (7.4-10.4); Monocytes # 1.1 10^3/uL (0.2-0.9); Monocytes % 15.7 %; Neutrophils # 4.33 10^3/uL (1.8-7.7); Neutrophils % 60.1 %; Nucleated Red Blood Cells # 0.1 /100WBC; Nucleated Red Blood Cells % 0.7 %; Platelet Count 355 10^3/cmm (130-400); Red Blood Count 3.44 10^6/uL (4.1-5.3); Red Cell Distribution Width 15.7 % (12.1-15.1); White Blood Count 7.2 10^3/uL (4.0-10.0)
[2020-09-22 06:03] LABS: Anion Gap 17.5 (5-19); Blood Urea Nitrogen 73 mg/dL (8-23); Calcium 8.1 mg/dL (8.5-10.5); Carbon Dioxide 24 mmol/L (22-29); Chloride 101 mmol/L (98-107); Glucose 103 mg/dL (65-115); Osmolality Calculated 308 mOsm/kg (285-295); Potassium 4.5 mmol/L (3.5-5.1); Sodium 138 mmol/L (136-145)
[2020-09-22 07:15] LABS: Glucose Point of Care 112 mg/dL (70-110)
[2020-09-22] MEDS: aspirin 81 mg EC Tablet PO (09:25)
[2020-09-22] MEDS: carvedilol 12.5 mg Tablet PO ×2 (09:26→21:25)
[2020-09-22] MEDS: losartan 50 mg Tablet 25 MG PO (09:26)
[2020-09-22] MEDS: amlodipine 10 mg Tablet PO (09:29)
[2020-09-22] MEDS: isosorbide mononitrate ER 30 mg Tablet 15 MG PO (09:29)
--- NOTE | 2020-09-22 10:24 | PC.NURSE ---
pt wants bath at night befor bed
[2020-09-22] MEDS: TRAMadol 50 mg Tablet PO ×2 (10:28→21:32)
[2020-09-22 10:34] LABS: PROTEIN, TOTAL 5.3 g/dL (6.1-8.1)
[2020-09-22 11:19] LABS: Glucose Point of Care 178 mg/dL (70-110)
--- NOTE | 2020-09-22 11:46 | P.PN_ITS ---
Subjective Subjective: Interval history: Patient was seen and examined today in the morning.s/p lt thoracentesis ( 600 cc straw colored fluid removed ) SOB has improved. LOS : - 8.7 Ls SCR is worsening, as well as BUN. Will stop lasix as well as metolazone for now. Medications: Reviewed: Yes Vitals/I&O/Wt Last Vital Signs Temp 98.5 F 09/22/20 07:34 Pulse 64 09/22/20 10:05 Resp 16 09/22/20 10:05 BP 139/70 09/22/20 09:26 Pulse Ox 94 09/22/20 10:05 09/21/20 09/22/20 09/22/20 22:59 06:59 14:59 Intake Total 585 / 585 240 / 240 Output Total 1100 / 1500 450 / 1950 Balance -515 / -915 -450 / -1365 240 / 240 Weight last 48 hrs Weight 109.316 kg Weight 115.666 kg Weight 115.666 kg Physical Exam Const: COMMON NORMALS: patient oriented x3 HENMT: COMMON NORMALS: normocephalic and atraumatic HEAD & SCALP: normocephalic and atraumatic Resp: COMMON NORMALS: normal respiratory effort EFFORT & INSPECTION: Yes symmetric chest movement OTHER: Diminished Air entry LLL Cardio: COMMON NORMALS: regular rate, regular rhythm, S1 normal heart sound present, S2 normal heart sound present, No gallops present (Cardio), No murmurs present (Cardio), No rub (Cardio) and Peripheral pulses 2+ throughout RATE: regular rate RHYTHM: regular rhythm HEART SOUNDS: S1 normal heart sound present and S2 normal heart sound present PERIPHERAL PULSES: Peripheral pulses 2+ throughout GI: COMMON NORMALS: Normal to inspection, nondistended, normoactive bowel sounds present, Soft to palpation, non-tender, No hepatosplenomegaly present and no masses AUSCULTATION: Yes normoactive bowel sounds PALPATION: Yes Soft to palpation and Yes No hepatosplenomegaly present RECTAL EXAM: deferred Extremity: COMMON NORMALS: no clubbing, cyanosis or edema and no pedal edema Neuro: COMMON NORMALS: patient oriented x3 Urinary Catheter Management^: Jesus: Cath Placed During This Visit: yes Reason for Continuing Indwelling Catheter: Accurate Measurement of Urinary Output in Critically Ill Patients Urinary Catheter Date of Insertion: 09/15/20 Urinary Catheter Time of Insertion: 14:26 Data : 09/22/20 04:21 09/22/20 04:21 Micro: Microbiology 09/20/20 15:45 Gram Stain - Final Pleural Fluid A&P Assessment and plan (1) Acute exacerbation of CHF (congestive heart failure): Initially on Lasix 80 mg IV every 12 hours + metolazone 5mg po daily.Currently stopped due to worseing kidney function. Appreciate renal recommendations Echocardiogram Normal left ventricular cavity size and markedly increased wall thickness. Severe concentric left ventricular hypertrophy. Mildly decreased decreased left ventricular systolic function.. Left ventricular ejection fraction is estimated at 45-50 %. Grade II diastolic dysfunction, moderately elevated filling pressures. There has been Drop in E.F as compared to prior Echo. Will plan for Stress test.If the patient can tolerate the procedure. To r/o any possible CAD Cardiology follow up as outpatient Also reports a past medical history of sleep apnea, does not use CPAP consistently at home, will order for hospital use and encourage compliance at home Oxygen requirements improving, at rest is saturating 92 to 93% on room air, saturation dropped to 89% with minimal exertion, requires 1 to 2 L supplemental O2 in this case. Status: Acute Qualifiers: Heart failure type: combined systolic and diastolic Qualified Code(s): I50.43 - Acute on chronic combined systolic (congestive) and diastolic (congestive) heart failure (2) Hypertensive urgency: This is now resolved Continue carvedilol 12.5 p.o. twice daily, amlodipine 10 mg p.o. daily In the evening hours systolic blood pressure trending up to 1 70-1 80 systolic subsequent days. Add Imdur 15 mg p.o. daily in the afternoon and monitor for response Status: Acute (3) Elevated troponin: negative serial delta, no acute changes on EKG, less concerning for AMI reports stess test and angigram perfromed in Jun 2019 at [facility], records requested , not received yet started on asa 81mg po daily primary prevention 10 year ASCVD risk score 34%--> started atorvastatin Echocardiogram as noted above, follow-up as outpatient Status: Acute (4) Acute kidney injury superimposed on CKD: Baseline cr 1.8-2.2 Increased to 3.1 now , currently diuresing well, no gross electrolyte abnormali ties, no indication for urgent HD at this time Appreciate nephrology recommendations Status: Acute (5) Pleural effusion, left: Persistent since 04/2020, less likely consolidative process underlying CT chest without any underlying masses or consolidation, no current indication for antibiotics thoracentesis in am given ongoing pleuritic pain and persisting dyspnea in spite of improving pulm edema and CHF otherwise. 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 Urine culture with Enterococcus durans noted, likely to be a colonizer. Denies dysuria, frequency. Started on amoxicillin per nephrology, will aim for short course of 3 days , last day today Status: Acute Additional A&P Information + D dimer with hypoxia: Cannot obtain CTA chest to avoid contrast injury in CKD, V/q scan may not be revealing in the presence of left pleural effusion and CHF, lower extremity Doppler negative for DVT, lower suspicion for PE. Dispo: Home with HH vs SNF when ready, PT recommendatiosn appreciated DVT prophylaxis: Lovenox Full code Attestations Medical Necessity Statement*: Patient needs to be in hospital for the management of Heart failure. Coding Level of Care Code Acute Tobacco Cloth Reclaimer for g Fwd Exam Detailed Diagnoses Acute exacerbation of CHF (congestive heart failure) I50.43 Heart failure type: combined systolic and diastolic Hypertensive urgency I16.0 Elevated troponin R77.8 Acute kidney injury superimposed on CKD N17.9; N18.9 Pleural effusion, left J90 Hypoxia R09.02 Anemia D64.9 Anemia type: unspecified type Asymptomatic bacteriuria R82.71
--- NOTE | 2020-09-22 13:47 | PM.PN ---
Subjective Subjective: Interval history: She has a little discomfort when the thoracentesis was performed. Otherwise she does feel well today with improved shortness of breath. She does have chronic lower extremity edema which is also marginally improved. Hemodynamics look stable. No uremic symptoms. Vitals/I&O/Wt Last Vital Signs Temp 98.5 F 09/22/20 07:34 Pulse 61 09/22/20 12:00 Resp 22 H 09/22/20 12:00 BP 118/53 09/22/20 12:00 Pulse Ox 93 09/22/20 12:00 09/21/20 09/22/20 09/22/20 22:59 06:59 14:59 Intake Total 585 / 585 360 / 360 Output Total 1100 / 1500 450 / 1950 Balance -515 / -915 -450 / -1365 360 / 360 Weight last 48 hrs Weight 109.316 kg Weight 115.666 kg Weight 115.666 kg Physical Exam Narrative: EXAM NARRATIVE: Constitutional: Awake, comfortable HEENT: Wet mucosa, no jvp, non icteric Lungs: Bilaterally decreased air entry without discernible wheeze, rales in all lung zones CVS: S1 S2, no murmurs Abdo: Soft, BS ok Ext 4: Minimal edema, peripheral perfusion with no cyanosis Neurological: Grossly non-focal Urinary Catheter Management^: Jesus: Cath Placed During This Visit: yes Reason for Continuing Indwelling Catheter: Accurate Measurement of Urinary Output in Critically Ill Patients Urinary Catheter Date of Insertion: 09/15/20 Urinary Catheter Time of Insertion: 14:26 Data : 09/22/20 04:21 09/22/20 04:21 Micro: Microbiology 09/21/20 17:15 C.difficile Toxin B Gene (PCR) - Final Stool Routine Collection 09/20/20 15:45 Gram Stain - Final Pleural Fluid A&P Additional A&P Information 1. Acute on chronic kidney disease. 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 Acute kidney injury component likely also in part due to cardiorenal hemodynamics. Diuretics held today, plan to resume tomorrow Contin Losartan A.m. labs. Strict Is and Os 2. Lytes are well balanced 3. Anemia of CKD Hb drifting down, will continue to monitor 4. Hemodynamics look good 5. Pleural effusion S/p thoracentesis She will be okay for discharge in the next day or so, as long as blood test look good tomorrow. 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
[2020-09-22 16:52] LABS: Glucose Point of Care 131 mg/dL (70-110)
[2020-09-22] MEDS: sertraline 50 mg Tablet PO (18:17)
[2020-09-22] MEDS: enoxaparin 30 mg/0.3 mL Syringe SUBCUT (18:17)
[2020-09-22 20:42] LABS: Glucose Point of Care 182 mg/dL (70-110)
[2020-09-22] MEDS: atorvastatin 40 mg Tablet PO (21:25)
[2020-09-22] MEDS: diphenhydrAMINE 25 mg Capsule PO (21:31)
[2020-09-23] VITALS (63 sets, daily range): BP systolic 123–146; BP diastolic 55–72; PULSE 55–86; RESP 14–28; TEMP 36.6–36.9; O2SAT 90–96
[2020-09-23 05:50] LABS: Basophils # 0.1 10^3/uL (0.0-0.1); Eosinophils # 0.5 10^3/uL (0.0-0.8); Eosinophils % 6.6 %; Hematocrit 29.6 % (37.0-47.0); Hemoglobin 9.1 g/dL (11.5-15.3); Lymphocytes # 1.8 10^3/uL (0.8-4.8); Lymphocytes % 24.6 %; Mean Corpuscular HGB Conc 30.7 g/dL (30.0-36.0); Mean Corpuscular Hemoglobin 26.1 pg (28.0-34.0); Mean Corpuscular Volume 84.8 fL (81-99); Mean Platelet Volume 11.1 fL (7.4-10.4); Monocytes # 1.2 10^3/uL (0.2-0.9); Monocytes % 16.2 %; Neutrophils # 3.75 10^3/uL (1.8-7.7); Neutrophils % 51.5 %; Nucleated Red Blood Cells % 0 %; Platelet Count 393 10^3/cmm (130-400); Red Blood Count 3.49 10^6/uL (4.1-5.3); Red Cell Distribution Width 15.7 % (12.1-15.1); White Blood Count 7.3 10^3/uL (4.0-10.0)
[2020-09-23 06:11] LABS: Anion Gap 15.7 (5-19); Blood Urea Nitrogen 80 mg/dL (8-23); Calcium 8.2 mg/dL (8.5-10.5); Carbon Dioxide 24 mmol/L (22-29); Chloride 102 mmol/L (98-107); Glucose 117 mg/dL (65-115); Osmolality Calculated 309 mOsm/kg (285-295); Potassium 4.7 mmol/L (3.5-5.1); Sodium 137 mmol/L (136-145)
[2020-09-23 06:54] LABS: Glucose Point of Care 128 mg/dL (70-110)
--- NOTE | 2020-09-23 07:22 | USCV_ITS ---
Iris Rockwell Age: 74 Gender: F : 1945 Exam Date: 09/23/2020 07:51 Ordering Phys: Catrachita Davila MD ([email or web address]) Technologist: Erasmo Butts Exam Location: [facility] [place] Indication: LV FUNCTION BP: 146 / 70 HR: 58 Rhythm: Sinus Technical Quality: Adequate MEASUREMENTS (Male / Female) Normal Values 2D ECHO LVOT Diameter 2.0 cm DOPPLER AV Peak Velocity 251.0 cm/s LVOT Peak Velocity 91.0 cm/s AV Area Cont Eq vti 1.4 cm squared AV Area Cont Eq pk 1.2 cm squared FINDINGS Left Ventricle Right Ventricle Right Atrium Left Atrium Mitral Valve Aortic Valve Tricuspid Valve Pulmonic Valve Pericardium Aorta CONCLUSIONS 1. This is a limited study with ultrasound enhancing agent. 2. Mildly decreased left ventricle systolic function. Left ventricle ejection fraction is estimated at 45 to 50%. There seems to be mild hypokinesis of mid to apical anterolateral and basal inferolateral plascencia. 3. Normal right ventricular size and systolic function. Catrachita Davila MD (Electronically Signed) Final Date: 23 September 2020 15:17 S
--- NOTE | 2020-09-23 07:23 | PM.CONSULT ---
Providers/Reason For Consult Consulting Physican/Specialty*: Dr. Davila, Cardiology Reason for Consult*: NSTEMI Attending Physician: Taiwo Savage MD Primary Care Provider: Osito Owens MD History of Present Illness History of Present Illness Iris Rockwell is a 74 year old female with PMHx of HFpEF, persistent left pleural effusion, HTN, HLD and DM-2 presented to the hospital with progressively worsening dyspnea over the past month and increasing LE swelling. She does report a h/o Takosubo cardiomyopathy diagnosed at [facility] in [facility] in Jun 2019 shortly after demise of her . LVEF 45% at the time with apical ballooning. Follow up echo at [facility] showed improved LV function. She had nuclear stress test and angiogram at the time. Initial labs showed elevated BNP ~64738, CXR with left sided pleural effusion, cr at 2.2, at baseline, mild anemia. Troponins elevated at 129--126--128. EKG without acute ST-T wave changes. She was diuresed ~9L and underwent left thoracentesis with removal of 600cc straw colored effusion on 09/21. She had repeat echo that showed drop in LV function. I have been asked to assist and evaluate in further management. Review of Systems General: Reports: 10 or more systems reviewed and unremarkable except in HPI and below Const: Denies: fever(s), chills or body aches Eyes: Denies: change in vision, blurry vision or photophobia ENMT: Denies: throat pain or nasal congestion Card: Reports: swelling of feet/ankles and dyspnea on exertion; Denies: chest pain, palpitations, irregular heart rhythm, edema, lightheadedness, pre-syncope or orthopnea Resp: Reports: dyspnea; Denies: productive cough, non-productive cough, wheezing, pain on inspiration, change in phlegm color, hemoptysis or chest congestion GI: Denies: abdominal pain, nausea, vomiting, hematemesis, coffee ground emesis, dysphagia, heartburn, diarrhea, constipation, GI cramping, change in stool character, hematochezia or melena : Denies: flank pain, difficulty voiding, dysuria, urinary frequency, urinary urgency, urinary hesitancy or hematuria Musc: Denies: neck pain, back pain or extremity pain Neuro: Denies: headache(s), numbness in extremities, weakness in extremities, sensory changes, difficulty walking, frequent falls, dizziness, vertigo, behavioral changes or Slurred speech present Psych: Denies: anxiety or depression Endo: Denies: polyuria, polydipsia, tired all the time, cold intolerance or hot flashes Hilario/Lymph: Denies: easy bruising or easy bleeding Meds/Allergies Home Medications and Allergies Home Medications Medication Instructions Recorded Confirmed Last Taken Type nitroglycerin 0.4 mg sublingual 0.4 mg SUBLINGUAL Q5M PRN 07/08/19 09/15/20 Unknown History tablet Levemir FlexTouch U-100 Insuln 25 unit SUBCUT BEDTIME@2100 01/04/20 09/15/20 09/14/20 History insulin lispro [Humalog KwikPen 10 unit SUBCUT TID 30 Days #15 ml 01/07/20 09/15/20 05/03/20 Rx Insulin] sertraline 50 mg tablet 50 mg PO Q24H 30 Days #30 tab 07/06/20 09/15/20 09/14/20 Rx ondansetron HCl 4 mg tablet 4 mg PO Q8H PRN #30 tab 07/07/20 09/15/20 Unknown Rx carvedilol 25 mg PO BID@09/15/20 09/15/20 09/14/20 History furosemide [Lasix] 40 mg PO DAILY@08 09/15/20 09/15/20 09/14/20 History spironolactone 25 mg PO DAILY@09/15/20 09/15/20 09/14/20 History Allergies Allergy/AdvReac Type Severity Reaction Status Date / Time morphine Allergy unknown Verified 09/02/20 11:24 zolpidem Allergy na Verified 09/02/20 11:24 Current Medications Current Medications Generic Name Dose Route Start Last Admin Trade Name Freq PRN Reason Stop Dose Admin Acetaminophen 650 mg 09/18/20 21:19 09/19/20 18:45 Acetaminophen 325 Mg Tablet PO 650 mg BEDTIME PRN Administration MILD PAIN Amlodipine Besylate 10 mg 09/18/20 09:00 09/22/20 09:29 Amlodipine 10 Mg Tablet PO 10 mg DAILY JT Administration Aspirin 81 mg 09/16/20 16:05 09/22/20 09:25 Aspirin 81 Mg Ec Tablet PO 81 mg DAILY JT Administration Atorvastatin Calcium 40 mg 09/17/20 21:00 09/22/20 21:25 Atorvastatin 40 Mg Tablet PO 40 mg BEDTIME JT Administration Carvedilol 12.5 mg 09/17/20 21:00 09/22/20 21:25 Carvedilol 12.5 Mg Tablet PO 12.5 mg BID@08,21 JT Administration Diphenhydramine HCl 25 mg 09/18/20 21:17 09/22/20 21:31 Diphenhydramine 25 Mg Capsule PO 25 mg BEDTIME PRN Administration INSOMNIA Enoxaparin Sodium 30 mg 09/16/20 18:00 09/22/20 18:17 Enoxaparin 30 Mg/0.3 Ml Syringe SUBCUT 30 mg Q24H JT Administration Insulin Aspart 0 unit 09/16/20 18:00 09/23/20 07:14 Insulin Aspart 100 Unit/1 Ml SUBCUT Not Given WM&BEDTIME [facility] Protocol Insulin Detemir 25 unit 09/15/20 21:00 09/16/20 20:56 Insulin Detemir 100 Units/1 Ml SUBCUT 25 unit BEDTIME@2100 [facility] Administration Isosorbide Mononitrate 15 mg 09/21/20 15:00 09/22/20 09:29 Isosorbide Mononitrate Er 30 Mg Tablet PO 15 mg DAILY [facility] Administration Lactulose 20 gm 09/21/20 12:30 09/23/20 06:47 Lactulose Oral Liq 20 Gm/30 Ml Udc PO Not Given Q6H [facility] Losartan Potassium 25 mg 09/21/20 10:00 09/22/20 09:26 Losartan 50 Mg Tablet PO 25 mg DAILY [facility] Administration Nystatin 1 applic 09/20/20 18:00 09/22/20 17:39 Nystatin Powder 15 Gm Btl TOPICAL Not Given BID [facility] Polyethylene Glycol 17 gm 09/20/20 13:53 09/22/20 09:30 Polyethylene Glycol 3350 Pkt 17 Gm PO Not Given DAILY [facility] Senna/Docusate Sodium 1 tab 09/20/20 13:53 09/22/20 09:30 Sennosides-Docusate Tablet PO Not Given DAILY [facility] Sertraline HCl 50 mg 09/15/20 19:14 09/22/20 18:17 Sertraline 50 Mg Tablet PO 50 mg Q24H JT Administration Tramadol HCl 50 mg 09/20/20 16:49 09/22/20 21:32 Tramadol 50 Mg Tablet PO 50 mg Q8H PRN Administration MODERATE PAIN PFSH Acute PFSH: Medical History Acute exacerbation of CHF (congestive heart failure) Chronic kidney disease, stage 3 -Nephrology f/u as outpatient Congestive heart failure Depression 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; s/p toe amputations due to diabetic foot infections Diabetes Diabetic neuropathy Diastolic CHF -Echo: EF=60%, G1DD, no RWMA, mild pulmonary HTN, mild , mild TR, trace MR GERD (gastroesophageal reflux disease) -on PPI and carafate Hypercholesteremia -on statin Hypertension Hypertension ANA (obstructive sleep apnea) does not wear cpap by choice Takotsubo cardiomyopathy -had extensive workup done in [facility] in [place] in 06/2019; records reviewed -Echo with EF=43%, LVH, noted distal septal, apical and anterolateral hypokinesia/apical ballooning consistent with Takotsubo cardiomyopathy; mild MR. No mention of stress testing or cardiac cath. Records in chart -noted elevated troponins with no significant delta; unlikely to be acute process -telemetry monitoring -Echo: EF=60%, G1DD, no RWMA, mild pulmonary HTN, mild , mild TR, trace MR Transient cerebral ischemia Venous insufficiency (chronic) (peripheral) Surgical History 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 History of appendectomy History of bladder suspension procedure History of cataract surgery History of cholecystectomy History of drainage of abscess left vulvar/perineal area History of hernia repair History of surgery on arm left arm, due to extravasation History of total hysterectomy Family History Father CAD (coronary artery disease) by report, she never knew him Social History Smoking and tobacco status: never smoked Alcohol intake: never Caregiver/support person: No Household members: none Marital status: / Vitals/I&O/Wt Last Vital Signs Temp 98.4 F 09/23/20 05:00 Pulse 56 L 03/31/21 05:47 Resp 20 H 09/23/20 05:00 BP 136/69 09/23/20 05:00 Pulse Ox 94 09/23/20 05:00 09/22/20 09/23/20 09/23/20 22:59 06:59 14:59 Output Total 250 / 250 400 / 650 Balance -250 / 110 -400 / -290 Weight last 48 hrs Weight 240 lb Weight 241 lb Physical Exam Const: COMMON NORMALS: no acute distress, patient oriented x3 and alert GENERAL APPEARANCE: cooperative, comfortable, well kempt and well hydrated NUTRITIONAL APPEARANCE: obese HENMT: COMMON NORMALS: normocephalic, atraumatic, hearing grossly normal bilaterally and external ears normal HEAD & SCALP: normocephalic and atraumatic FACE & SINUS: normal facial exam EXTERNAL EAR: Yes external ears normal Eye: COMMON NORMALS: Equal, round and reactive pupils present, EOMs intact bilaterally, conjunctivae normal and no scleral icterus GENERAL EYE: appearance normal, both eyes and all related structures ALIGNMENT: Yes alignment normal EYELID: eyelids normal CONJUNCTIVA: Yes conjunctivae normal SCLERA: sclerae normal PUPIL: Yes Equal, round and reactive pupils present Neck/C-Spine: COMMON NORMALS: supple and no JVD GENERAL: Yes normal visual inspection, Yes trachea midline and No Mass present (neck) CAROTIDS: Yes normal carotid upstroke CERVICAL SPINE: Yes cervical ROM normal Chest: COMMONS NORMALS: normal inspection of the chest and normal palpation of entire chest wall CHEST: Yes Symmetrical chest wall rise and No tenderness Resp: COMMON NORMALS: clear to auscultation bilaterally (decreased breath sound at bases) EFFORT & INSPECTION: Yes able to speak in complete sentences AUSCULTATION: clear to auscultation bilaterally (decreased breath sound at bases), no crackles, no rales, no rhonchi, no wheezes and vesicular breath sounds Cardio: COMMON NORMALS: no JVD, regular rate, regular rhythm, S1 normal heart sound present, S2 normal heart sound present and Peripheral pulses 2+ throughout PALPATION: normal PMI RATE: regular rate RHYTHM: regular rhythm HEART SOUNDS: S1 normal heart sound present, S2 normal heart sound present, no gallops and Murmur heart sound present systolic BRUITS: no carotid bruits PERIPHERAL PULSES: Peripheral pulses 2+ throughout, radial pulses present, posterior tibial pulses present and dorsalis pedis present GI: COMMON NORMALS: Soft to palpation and No hepatosplenomegaly present AUSCULTATION: Yes normoactive bowel sounds PALPATION: Yes Soft to palpation, No Tenderness to palpation present (GI), No Guarding due to palpation present (GI), No Rigid due to palpation, Yes No hepatosplenomegaly present and No Ascites present PERCUSSION: tympanic to percussion Extremity: GENERAL: No calf tenderness, No clubbing, No cyanosis, Yes edema and No pallor Neuro: COMMON NORMALS: patient oriented x3, CN's II-XII intact bilaterally, no focal motor deficits and gait normal SENSORIUM/ORIENTATION: Yes alert Psych: COMMON NORMALS: Normal thought process present and speech normal APPEARANCE: Yes well kempt SPEECH: Yes normal speech MOOD & AFFECT: Yes euthymic mood THOUGHT PROCESS: Normal thought process present THOUGHT CONTENT: Yes Normal thought content present Skin: HAIR: normal NAILS: normal and no clubbing Urinary Catheter Management^: Jesus: Cath Placed During This Visit: yes Reason for Continuing Indwelling Catheter: Accurate Measurement of Urinary Output in Critically Ill Patients Urinary Catheter Date of Insertion: 09/15/20 Urinary Catheter Time of Insertion: 14:26 Data Micro: Micro: Microbiology 09/21/20 17:15 C.difficile Toxin B Gene (PCR) - Fin al Stool Routine Col lection 09/20/20 15:45 Gram Stain - Final Pleural Fluid Other Data: Other data: TTE (01/05/2020) CONCLUSIONS Normal left ventricular size, systolic function and wall thickness, with no regional wall motion abnormalities. Grade I/IV diastolic dysfunction (abnormal relaxation filling pattern), normal to mildly elevated filling pressures. Left ventricular ejection fraction is estimated at 60 %. Normal right ventricular size and systolic function. Mild pulmonary hypertension, RVSP 48.2 mmHg. Thickened mitral valve. Severe mitral annular calcification. Trace mitral valve regurgitation. No mitral valve stenosis. Structurally normal trileaflet aortic valve. Mild aortic valve calcification. No aortic valve regurgitation. Mild aortic valve stenosis, mean gradient 7.9 mmHg, MICHAEL 1.9 cm squared. No change from 01/29/2019. Carotid duplex (01/05/20) Impression: 1. Moderate echogenic plaque formation within the carotid arteries, without hemodynamically significant ICA stensosis. 2. Normal antegradew flow within the vertebral arteries. TTE (09/17/20) CONCLUSIONS 1. This is a technically difficult study. 2. Normal left ventricular cavity size and markedly increased wall thickness. Severe concentric left ventricular hypertrophy. Mildly decreased decreased left ventricular systolic function.. Left ventricular ejection fraction is estimated at 45-50 %. Grade II diastolic dysfunction, moderately elevated filling pressures. 3. Normal right ventricular size and systolic function. 4. Mild to moderate aortic valve stenosis, mean gradient 11.7 mmHg, MICHAEL 1.3 cm squared. 5. Direct comparison to previous study dated 01/05/2020 is not possible given technical differences in study. 6. Repeat study with ultrasound enhancing agent is recommended for better assessment of LV function and aortic valve stenosis. TTE (09/23/20) CONCLUSIONS 1. This is a limited study with ultrasound enhancing agent. 2. Mildly decreased left ventricle systolic function. Left ventricle ejection fraction is estimated at 45 to 50%. There seems to be mild hypokinesis of mid to apical anterolateral and basal inferolateral plascencia. 3. Normal right ventricular size and systolic function. A&P Assessment and plan (1) Acute exacerbation of CHF (congestive heart failure): Lasix restarted today at 40 mg PO BID. -currently on low dose losartan and coreg. -I do not have records from [facility]. -I will plan for stress test given multiple CAD risk factors and RWMA with recurrent CHF. -f/u on records. Status: Acute Qualifiers: Heart failure type: combined systolic and diastolic Qualified Code(s): I50.43 - Acute on chronic combined systolic (congestive) and diastolic (congestive) heart failure (2) Hypertension: Status: Acute Qualifiers: Hypertension type: essential hypertension Qualified Code(s): I10 - Essential (primary) hypertension (3) Diabetes: Status: Acute Qualifiers: Diabetes mellitus complication detail: with polyneuropathy Diabetes mellitus complication status: with neurologic complications Diabetes mellitus retirement insulin use: with retirement use Diabetes mellitus type: type 2 Qualified Code(s): E11.42 - Type 2 diabetes mellitus with diabetic polyneuropathy; Z79.4 - nursing home (current) use of insulin (4) CKD (chronic kidney disease): Status: Acute Qualifiers: Chronic kidney disease stage: unspecified stage Qualified Code(s): N18.9 - Chronic kidney disease, unspecified (5) Acute kidney injury: Status: Acute Additional A&P Information Anemia Thrombocytosis s/p left thoracentesis Normocytic anemia H/o gastritis Thank you for allowing me to participate in patient's care. Please feel free to call with questions or concerns. Consult Attestations Medical Necessity Statement: Needs hospital stay for CHF and worsening renal function. Time Spent in Patient Care: Greater than 35 minutes (>than 50% of time spent in counselling and/or direct pt care on unit). Coding Level of Care Code Acute [employer] for [employer] Diagnoses Acute exacerbation of CHF (congestive heart failure) I50.43 Heart failure type: combined systolic and diastolic Hypertension I10 Hypertension type: essential hypertension Diabetes E11.42; Z79.4 Diabetes mellitus complication detail: with polyneuropathy Diabetes mellitus complication status: with neurologic complications Diabetes mellitus long winder tender insulin use: with long winder tender use Diabetes mellitus type: type 2 CKD (chronic kidney disease) N18.9 Chronic kidney disease stage: unspecified stage Acute kidney injury N17.9
[2020-09-23] MEDS: carvedilol 12.5 mg Tablet PO (09:25)
[2020-09-23] MEDS: amlodipine 10 mg Tablet PO (09:25)
[2020-09-23] MEDS: isosorbide mononitrate ER 30 mg Tablet 15 MG PO (09:25)
[2020-09-23] MEDS: sennosides-docusate Tablet 1 TAB PO (09:26)
[2020-09-23] MEDS: aspirin 81 mg EC Tablet PO (09:26)
[2020-09-23] MEDS: losartan 50 mg Tablet 25 MG PO (09:26)
--- NOTE | 2020-09-23 09:28 | ECG_ITS ---
[facility] Test Date: 2020-09-24 Pat Name: Iris Rockwell Department: Room: 111 Gender: Female [employer]ilion C[employer]: : 1945 Requested By: Catrachita Davila Order Number: [id number] Coco MD: Catrachita Davila M.D. Interpretive Statements NAME OF STUDY: LEXISCAN SESTAMIBI STRESS TEST INDICATION: Congestive heart failure, drop in LV function PROCEDURE: At the baseline, the blood pressure was 144/61 mmHg with a heart rate of 63 bpm. The electrocardiogram showed sinus bradycardia, normal axis with nonspecific ST depression. Poor anterior R wave progression. ??? The Lexiscan was infused over a period of 20 seconds. A total of 0.4 milligrams of Lexiscan was infused. The stress phase was continued for a total of 5 minutes. Heart rate at the end of the stress phase was 72 bpm with a blood pressure of 133/59 mmHg. The EKG at the peak infusion revealed sinus rhythm with no significant ST-T wave changes. ??? Sestamibi was injected 20 seconds after the Lexiscan infusion. ??? Blood pressure at the end of the recovery phase was 142/61 mmHg with a heart rate of 69 beats per minute. ??? CONCLUSION: 1. No significant EKG changes with the LexiScan infusion. 2. No LexiScan induced chest pain or cardiac arrhythmia. 3. Normal blood pressure and heart rate response. 4. Sestamibi/sestamibi perfusion scan pending; see separate report. Electronically Signed On 09-24-2020 17:17:33 CDT by Catrachita Davila M.D. [email or web address]
--- NOTE | 2020-09-23 09:35 | PM.PN ---
Subjective Subjective: Interval history: shortness of breath has markedly improved. BUN/creatinine is trending up: Worsening serum creatinine has been attributed to losartan use. BUN is also : Significantly higher: Although she do not have any uremic symptoms right now. Current LOS: -9.1 Ls . Medications: Reviewed: Yes Vitals/I&O/Wt Last Vital Signs Temp 98.1 F 09/23/20 07:30 Pulse 59 L 09/23/20 09:10 Resp 18 09/23/20 09:10 BP 145/72 09/23/20 09:26 Pulse Ox 94 09/23/20 09:10 09/22/20 09/23/20 09/23/20 22:59 06:59 14:59 Output Total 250 / 250 400 / 650 Balance -250 / 110 -400 / -290 Weight last 48 hrs Weight 108.862 kg Weight 109.316 kg Physical Exam Const: COMMON NORMALS: patient oriented x3 HENMT: COMMON NORMALS: normocephalic and atraumatic HEAD & SCALP: normocephalic and atraumatic Resp: COMMON NORMALS: normal respiratory effort and clear to auscultation bilaterally EFFORT & INSPECTION: Yes symmetric chest movement AUSCULTATION: clear to auscultation bilaterally Cardio: COMMON NORMALS: regular rate, regular rhythm, S1 normal heart sound present, S2 normal heart sound present, No gallops present (Cardio), No murmurs present (Cardio), No rub (Cardio) and Peripheral pulses 2+ throughout RATE: regular rate RHYTHM: regular rhythm HEART SOUNDS: S1 normal heart sound present and S2 normal heart sound present PERIPHERAL PULSES: Peripheral pulses 2+ throughout GI: COMMON NORMALS: Normal to inspection, nondistended, normoactive bowel sounds present, Soft to palpation, non-tender, No hepatosplenomegaly present and no masses AUSCULTATION: Yes normoactive bowel sounds PALPATION: Yes Soft to palpation and Yes No hepatosplenomegaly present RECTAL EXAM: deferred Extremity: COMMON NORMALS: no clubbing, cyanosis or edema and no pedal edema Neuro: COMMON NORMALS: patient oriented x3 Urinary Catheter Management^: Jesus: Cath Placed During This Visit: yes Reason for Continuing Indwelling Catheter: Accurate Measurement of Urinary Output in Critically Ill Patients Urinary Catheter Date of Insertion: 09/15/20 Urinary Catheter Time of Insertion: 14:26 Data : 09/23/20 05:14 09/23/20 05:14 Micro: Microbiology 09/21/20 17:15 C.difficile Toxin B Gene (PCR) - Final Stool Routine Collection 09/20/20 15:45 Gram Stain - Final Pleural Fluid A&P Assessment and plan (1) Acute exacerbation of CHF (congestive heart failure): Initially on Lasix 80 mg IV every 12 hours + metolazone 5mg po daily.Currently stopped due to worseing kidney function. Appreciate renal recommendations Echocardiogram Normal left ventricular cavity size and markedly increased wall thickness. Severe concentric left ventricular hypertrophy. Mildly decreased decreased left ventricular systolic function.. Left ventricular ejection fraction is estimated at 45-50 %. Grade II diastolic dysfunction, moderately elevated filling pressures. There has been Drop in E.F as compared to prior Echo. 2D echo with contrast: 09/23 : Am Stress test. Appreciate Cardiology consult : Also reports a past medical history of sleep apnea, does not use CPAP consistently at home, will order for hospital use and encourage compliance at home Oxygen requirements improving, at rest is saturating 92 to 93% on room air, saturation dropped to 89% with minimal exertion, requires 1 to 2 L supplemental O2 in this case. Status: Acute Qualifiers: Heart failure type: combined systolic and diastolic Qualified Code(s): I50.43 - Acute on chronic combined systolic (congestive) and diastolic (congestive) heart failure (2) Hypertensive urgency: This is now resolved Continue carvedilol 12.5 p.o. twice daily, amlodipine 10 mg p.o. daily In the evening hours systolic blood pressure trending up to 1 70-1 80 systolic subsequent days. Add Imdur 15 mg p.o. daily in the afternoon and monitor for response Status: Acute (3) Elevated troponin: negative serial delta, no acute changes on EKG, less concerning for AMI reports stess test and angigram perfromed in Jun 2019 at [facility], records requested , not received yet started on asa 81mg po daily primary prevention 10 year ASCVD risk score 34%--> started atorvastatin Echocardiogram as noted above, follow-up as outpatient Status: Acute (4) Acute kidney injury superimposed on CKD: Baseline cr 1.8-2.2 Increased to 3.1 now , currently diuresing well, no gross electrolyte abnormalities, no indication for urgent HD at this time Appreciate nephrology recommendations Status: Acute (5) Pleural effusion, left: Persistent since 04/2020, less likely consolidative process underlying CT chest without any underlying masses or consolidation, no current indication for antibiotics thoracentesis in am given ongoing pleuritic pain and persisting dyspnea in spite of improving pulm edema and CHF otherwise. 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 Urine culture with Enterococcus durans noted, likely to be a colonizer. Denies dysuria, frequency. Started on amoxicillin per nephrology, will aim for short course of 3 days , last day today Status: Acute Additional A&P Information + D dimer with hypoxia: Cannot obtain CTA chest to avoid contrast injury in CKD, V/q scan may not be revealing in the presence of left pleural effusion and CHF, lower extremity Doppler negative for DVT, lower suspicion for PE. Dispo: Home with HH vs SNF when ready, PT recommendatiosn appreciated DVT prophylaxis: Lovenox Full code Attestations Medical Necessity Statement*: Patient needs to be in hospital for the management of Heart failure. Coding Level of Care Code Acute Nursing Instructor for Chg Fwd Diagnoses Acute exacerbation of CHF (congestive heart failure) I50.43 Heart failure type: combined systolic and diastolic Hypertensive urgency I16.0 Elevated troponin R77.8 Acute kidney injury superimposed on CKD N17.9; N18.9 Pleural effusion, left J90 Hypoxia R09.02 Anemia D64.9 Anemia type: unspecified type Asymptomatic bacteriuria R82.71
[2020-09-23] MEDS: FUROsemide 40 mg Tablet PO ×2 (11:10→17:56)
--- NOTE | 2020-09-23 11:13 | P.PN_ITS ---
Subjective Subjective: Interval history: She feels relatively well today with no acute symptoms. Improved shortness of breath. She does have chronic lower extremity edema which is also marginally improved. Hemodynamics look stable. No uremic symptoms. Medications: Reviewed: Yes Vitals/I&O/Wt Last Vital Signs Temp 98.1 F 09/23/20 07:30 Pulse 59 L 09/23/20 09:10 Resp 18 09/23/20 09:10 BP 145/72 09/23/20 09:26 Pulse Ox 94 09/23/20 09:10 09/22/20 09/23/20 09/23/20 22:59 06:59 14:59 Output Total 250 / 250 400 / 650 Balance -250 / 110 -400 / -290 Weight last 48 hrs Weight 108.862 kg Weight 109.316 kg Physical Exam Narrative: EXAM NARRATIVE: Constitutional: Awake, comfortable HEENT: Wet mucosa, no jvp, non icteric Lungs: Bilaterally decreased air entry without discernible wheeze, rales in all lung zones CVS: S1 S2, no murmurs Abdo: Soft, BS ok Ext 4: Minimal edema, peripheral perfusion with no cyanosis Neurological: Grossly non-focal Urinary Catheter Management^: Jesus: Cath Placed During This Visit: yes Reason for Continuing Indwelling Catheter: Accurate Measurement of Urinary Output in Critically Ill Patients Urinary Catheter Date of Insertion: 09/15/20 Urinary Catheter Time of Insertion: 14:26 Data : 09/23/20 05:14 09/23/20 05:14 Micro: Microbiology 09/21/20 17:15 C.difficile Toxin B Gene (PCR) - Final Stool Routine Collection 09/20/20 15:45 Gram Stain - Final Pleural Fluid A&P Additional A&P Information 1. Acute on chronic kidney disease. 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 Acute kidney injury component likely also in part due to cardiorenal hemodynamics. Diuretics to be resumed today Contin Losartan A.m. labs. Strict Is and Os 2. Lytes are well balanced 3. Anemia of CKD Hb drifting down, will continue to monitor 4. Hemodynamics look good 5. Pleural effusion S/p thoracentesis 6. History of CHF EF 45% with grade 2 DD Pending stress test tomorrow Hopefully DC in the next day or so if renal function remains stable pending outcome of stress test Tonny Rodrigues MD Nephrology [phone] Patient seen and examined via telemedicine, with the assistance of the bedside RN > 25 min spent in evaluation and mgmt of patient Attestations Medical Necessity Statement*: eval for JOSE LUIS Coding Level of Care Code Acute Methods Examiner for Ivett Koo
[2020-09-23 11:24] LABS: Glucose Point of Care 188 mg/dL (70-110)
[2020-09-23 14:07] LABS: ALBUMIN 2.6 g/dL (3.8-4.8); ALPHA 1 GLOBULIN 0.5 g/dL (0.2-0.3); ALPHA 2 GLOBULIN 0.9 g/dL (0.5-0.9); BETA 1 GLOBULIN 0.4 g/dL (0.4-0.6); BETA 2 GLOBULIN 0.3 g/dL (0.2-0.5); GAMMA GLOBULIN 0.6 g/dL (0.8-1.7)
[2020-09-23 16:57] LABS: Glucose Point of Care 145 mg/dL (70-110)
[2020-09-23] MEDS: enoxaparin 30 mg/0.3 mL Syringe SUBCUT (17:57)
[2020-09-23] MEDS: TRAMadol 50 mg Tablet PO (18:11)
[2020-09-23] MEDS: sertraline 50 mg Tablet PO (18:14)
[2020-09-23 21:22] LABS: Glucose Point of Care 287 mg/dL (70-110)
[2020-09-23] MEDS: atorvastatin 40 mg Tablet PO (21:31)
[2020-09-23] MEDS: carvedilol 6.25 mg Tablet PO (21:31)
[2020-09-23] MEDS: diphenhydrAMINE 25 mg Capsule PO (21:31)
[2020-09-24] VITALS (11 sets, daily range): BP systolic 114–152; BP diastolic 55–66; PULSE 20–69; RESP 16–91; TEMP 36.7–37.1; O2SAT 90–96
[2020-09-24] MEDS: TRAMadol 50 mg Tablet PO ×3 (00:51→20:40)
[2020-09-24 04:59] LABS: Basophils # 0.1 10^3/uL (0.0-0.1); Eosinophils # 0.6 10^3/uL (0.0-0.8); Eosinophils % 6.8 %; Hematocrit 29.2 % (37.0-47.0); Lymphocytes # 1.8 10^3/uL (0.8-4.8); Lymphocytes % 21.8 %; Mean Corpuscular HGB Conc 30.8 g/dL (30.0-36.0); Mean Corpuscular Hemoglobin 26.5 pg (28.0-34.0); Mean Corpuscular Volume 86.1 fL (81-99); Mean Platelet Volume 11.4 fL (7.4-10.4); Monocytes # 1.4 10^3/uL (0.2-0.9); Monocytes % 16.5 %; Neutrophils # 4.43 10^3/uL (1.8-7.7); Neutrophils % 53.5 %; Nucleated Red Blood Cells % 0 %; Platelet Count 402 10^3/cmm (130-400); Red Blood Count 3.39 10^6/uL (4.1-5.3); Red Cell Distribution Width 15.6 % (12.1-15.1); White Blood Count 8.3 10^3/uL (4.0-10.0)
[2020-09-24 05:22] LABS: Anion Gap 16.8 (5-19); Calcium 8.4 mg/dL (8.5-10.5); Carbon Dioxide 23 mmol/L (22-29); Chloride 101 mmol/L (98-107); Glucose 95 mg/dL (65-115); Osmolality Calculated 309 mOsm/kg (285-295); Potassium 4.8 mmol/L (3.5-5.1); Sodium 136 mmol/L (136-145)
[2020-09-24 05:42] LABS: Blood Urea Nitrogen 88 mg/dL (8-23)
[2020-09-24 06:51] LABS: Glucose Point of Care 113 mg/dL (70-110)
--- NOTE | 2020-09-24 07:15 | PC.NURSE ---
Patient taken to [facility] for stress test.
--- NOTE | 2020-09-24 07:35 | PM.PN ---
Subjective Subjective: Interval history: had stress test this am - reports headache and nausea Medications: Reviewed: Yes Vitals/I&O/Wt Last Vital Signs Temp 98.3 F 09/24/20 04:00 Pulse 64 09/24/20 05:14 Resp 17 09/24/20 04:00 BP 120/55 09/24/20 04:00 Pulse Ox 90 09/24/20 04:00 09/23/20 09/24/20 09/24/20 22:59 06:59 14:59 Intake Total 240 / 480 720 / 1200 Output Total 250 / 250 300 / 550 Balance -10 / 230 420 / 650 Weight last 48 hrs Weight 109.316 kg Weight 108.862 kg Physical Exam Const: COMMON NORMALS: no acute distress GENERAL APPEARANCE: cooperative Extremity: GENERAL: Yes edema (2+) Urinary Catheter Management^: Jesus: Cath Placed During This Visit: yes Reason for Continuing Indwelling Catheter: Accurate Measurement of Urinary Output in Critically Ill Patients Urinary Catheter Date of Insertion: 09/15/20 Urinary Catheter Time of Insertion: 14:26 Data : 09/24/20 04:22 09/24/20 04:22 Other Labs: Hb 9, TSAT 10%, SF 52 Micro: Microbiology 09/20/20 15:45 Gram Stain - Final Pleural Fluid Body Fluid Culture - Preliminary A&P Additional A&P Information 1. Acute kidney injury, renal function worse, weight stable over last 3 days per RN. Urine output 500 ml/24h 2. 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 Anemia: iron deficient 4. CHF Recommend: Iris needs further diuresis.I increased furosemide to 80 mg BID. I think best option at this point would be initiation of dialysis. I discussed this with her. We are awaiting results of stress test. Cardiac catheterization will definitely require dialysis initiation. IV iron (venofer 200 mg IV x 5 doses) if not already received. Attestations Medical Necessity Statement*: see above Time Spent in Patient Care: Greater than 35 minutes Coding Level of Care Code Acute Moisture Meter Operator for Ivett Koo
--- NOTE | 2020-09-24 07:55 | SUR.PREOP ---
Patient reports no pain or discomfort prior to the start of the procedure.
[2020-09-24] MEDS: regadenoson 0.4 Mg/5 ml Syringe IVP (07:57)
--- NOTE | 2020-09-24 09:28 | NMCV_ITS ---
NM nba perf SPECT r/s* [id number] Iris Rockwell Age: 74 Gender: F : 1945 Exam Date: 09/24/2020 07:25 Ordering Phys: Catrachita Davila MD ([email or web address]) Technologist: BHAVIN Mehta Exam Location: [facility] Indications: SOB STRESS TEST Please see separate stress test report in [facility] for full findings IMAGE PROTOCOL Rest/Stress 1 Lexiscan Day Radiopharmaceutical Dose (mCi) Administration Site Administered by Rest: Tc-99m 10.9 IV BHAVIN Mehta Sestamibi Stress:Tc-99m 32.8 IV BHAVIN Hansen Sestamibi Rest: 24-Sep-2020 60 Discovery 630 Stress: 24-Sep-2020 30 Discovery 630 0.4mg Lexiscan. Supine position only as patient was unable to lay prone. SPECT RESULTS Technical Quality: Good Raw Data Analysis: Breast attenuation Image Corrections: No attenuation or motion correction applied Summed Stress Score: 25 Summed Rest Score: 12 Summed Difference Score: 13 PERFUSION FINDINGS Medium sized perfusion abnormality of moderate severity in inferior and lateral wall on rest images with reversibility noted in entire anterior, mid to apical inferior and mid to apical inferolateral plascencia on supine stress images. FUNCTIONAL RESULTS (calculated via Gated SPECT) Stress Image LV EF (%): 48 Stress EDV (mL):155 TID: 0.97 Stress ESV (mL):81 FUNCTIONAL FINDINGS: The left ventricle is normal in size. Transient Ischemia Dilatation of 0.97. There is mildly reduced left ventricular global systolic function. The left ventricular ejection fraction is mildly reduced with a value of 48%. There is possibly mild septal hypokinesis. Increased end-diastolic and end-systolic volumes. IMPRESSIONS 1. Large sized perfusion abnormality of moderate severity in inferior and lateral plascencia with reversibility noted in entire anterior, mid to apical inferior and mid to apical inferolateral plascencia. 2. This may represent ischemia in multivessel territories. However in absence of prone imaging, breast attenuation artifact cannot be completely ruled out. 3. The left ventricular ejection fraction is mildly reduced with a value of 48%. 4. There is possibly mild septal hypokinesis. 5. When compared to previous study dated 03/28/2018, left ventricular systolic function has decreased and there may be ischemia in multivessel territory. Catrachita Davila MD (Electronically Signed) Final Date: 24 September 2020 17:13 S
[2020-09-24] MEDS: aspirin 81 mg EC Tablet PO (10:34)
[2020-09-24] MEDS: FUROsemide 40 mg Tablet PO (10:34)
[2020-09-24] MEDS: isosorbide mononitrate ER 30 mg Tablet 15 MG PO (10:34)
[2020-09-24] MEDS: amlodipine 10 mg Tablet PO ×2 (10:35→10:39)
[2020-09-24] MEDS: losartan 50 mg Tablet 25 MG PO (10:35)
[2020-09-24] MEDS: carvedilol 6.25 mg Tablet PO ×2 (10:39→20:41)
[2020-09-24] MEDS: acetaminophen 325 mg Tablet 650 MG PO (10:40)
[2020-09-24 11:23] LABS: Glucose Point of Care 165 mg/dL (70-110)
--- NOTE | 2020-09-24 14:41 | PM.PN ---
Subjective Subjective: Interval history: Patient was seen and examined this morning. Shortness of breath has improved, lower extremity swelling is slowly improving.Underwent stress test today. LOS: - 8.1Ls Medications: Reviewed: Yes Vitals/I&O/Wt Last Vital Signs Temp 98.7 F 09/24/20 11:13 Pulse 64 09/24/20 11:13 Resp 16 09/24/20 11:13 BP 133/57 09/24/20 11:13 Pulse Ox 96 09/24/20 11:13 09/23/20 09/24/20 09/24/20 22:59 06:59 14:59 Intake Total 240 / 480 720 / 1200 600 / 600 Output Total 250 / 250 300 / 550 Balance -10 / 230 420 / 650 600 / 600 Weight last 48 hrs Weight 109.316 kg Weight 108.862 kg Physical Exam Const: COMMON NORMALS: patient oriented x3 HENMT: COMMON NORMALS: normocephalic and atraumatic HEAD & SCALP: normocephalic and atraumatic Resp: COMMON NORMALS: normal respiratory effort and clear to auscultation bilaterally EFFORT & INSPECTION: Yes symmetric chest movement AUSCULTATION: clear to auscultation bilaterally Cardio: COMMON NORMALS: regular rate, regular rhythm, S1 normal heart sound present, S2 normal heart sound present, No gallops present (Cardio), No murmurs present (Cardio), No rub (Cardio) and Peripheral pulses 2+ throughout RATE: regular rate RHYTHM: regular rhythm HEART SOUNDS: S1 normal heart sound present and S2 normal heart sound present PERIPHERAL PULSES: Peripheral pulses 2+ throughout GI: COMMON NORMALS: Normal to inspection, nondistended, normoactive bowel sounds present, Soft to palpation, non-tender, No hepatosplenomegaly present and no masses AUSCULTATION: Yes normoactive bowel sounds PALPATION: Yes Soft to palpation and Yes No hepatosplenomegaly present RECTAL EXAM: deferred Extremity: NARRATIVE EXTREMITY EXAM: 3+ B/L L/E Pitting Edema Neuro: COMMON NORMALS: patient oriented x3 Urinary Catheter Management^: Jesus: Cath Placed During This Visit: yes Reason for Continuing Indwelling Catheter: Accurate Measurement of Urinary Output in Critically Ill Patients Urinary Catheter Date of Insertion: 09/15/20 Urinary Catheter Time of Insertion: 14:26 Data : 09/24/20 04:22 09/24/20 04:22 Micro: Microbiology 03/28/21 15:45 Gram Stain - Final Pleural Fluid Body Fluid Culture - Preliminary A&P Assessment and plan (1) Acute exacerbation of CHF (congestive heart failure): Initially on Lasix 80 mg IV every 12 hours + metolazone 5mg po daily.Currently stopped due to worseing kidney function. Appreciate renal recommendations Echocardiogram Normal left ventricular cavity size and markedly increased wall thickness. Severe concentric left ventricular hypertrophy. Mildly decreased decreased left ventricular systolic function.. Left ventricular ejection fraction is estimated at 45-50 %. Grade II diastolic dysfunction, moderately elevated filling pressures. There has been Drop in E.F as compared to prior Echo. 2D echo with contrast: 09/23 : Mildly decreased left ventricle systolic function. Left ventricle ejection fraction is estimated at 45 to 50%.There seems to be mild hypokinesis of mid to apical anterolateral and basal inferolateral plascencia. Am Stress test:Done Appreciate Cardiology consult : Also reports a past medical history of sleep apnea, does not use CPAP consistently at home, will order for hospital use and encourage compliance at home Oxygen requirements improving, at rest is saturating 92 to 93% on room air, saturation dropped to 89% with minimal exertion, requires 1 to 2 L supplemental O2 in this case. Status: Acute Qualifiers: Heart failure type: combined systolic and diastolic Qualified Code(s): I50.43 - Acute on chronic combined systolic (congestive) and diastolic (congestive) heart failure (2) Hypertensive urgency: This is now resolved Continue carvedilol 12.5 p.o. twice daily, amlodipine 10 mg p.o. daily In the evening hours systolic blood pressure trending up to 1 70-1 80 systolic subsequent days. Add Imdur 15 mg p.o. daily in the afternoon and monitor for response Status: Acute (3) Elevated troponin: negative serial delta, no acute changes on EKG, less concerning for AMI reports stess test and [facility]igram [facility] , not received yet started on asa 81mg po daily primary prevention 10 year ASCVD risk score 34%--> started atorvastatin Echocardiogram as noted above, follow-up as outpatient Status: Acute (4) Acute kidney injury superimposed on CKD: Baseline cr 1.8-2.2 Increased to 3.8 now , currently diuresing well, no gross electrolyte abnormalities. On Lasix 80 mg PO BID.Nephrology is of the opinion that she is a candidate for dialysis. Appreciate nephrology recommendations Status: Acute (5) Pleural effusion, left: Persistent since 04/2020, less likely consolidative process underlying CT chest without any underlying masses or consolidation, no current indication for antibiotics thoracentesis in am given ongoing pleuritic pain and persisting dyspnea in spite of improving pulm edema and CHF otherwise. S/P lt thoracentesis ( 600 cc straw colored Transduative fluid removed ) Status: Acute (6) Hypoxia: likely from CHF and pleural effusion lasix as above less likely PNA CT chest with persistent pleural effusion Status: Acute (7) Anemia: MORAIMA . Venofer 200 MG IV * 5 Doses Status: Acute Qualifiers: Anemia type: unspecified type Qualified Code(s): D64.9 - Anemia, unspecified (8) Asymptomatic bacteriuria: Patient has chronic asymptomatic bacteriuria. Urine culture with Enterococcus durans noted, likely to be a colonizer. Denies dysuria, frequency. Started on amoxicillin per nephrology, completed short course of 3 days. Status: Acute Additional A&P Information + D dimer with hypoxia: Cannot obtain CTA chest to avoid contrast injury in CKD, V/q scan may not be revealing in the presence of left pleural effusion and CHF, lower extremity Doppler negative for DVT, lower suspicion for PE. Dispo: Home with HH vs SNF when ready, PT recommendatiosn appreciated DVT prophylaxis: Lovenox Full code Attestations Medical Necessity Statement*: Patient needs to be in hospital for the management of heart failure, JOSE LUIS on Worsening CKD. Coding Level of Care Code Acute Skilled Nursing Case Manager for Chg Fwd Exam Detailed Diagnoses Acute exacerbation of CHF (congestive heart failure) I50.43 Heart failure type: combined systolic and diastolic Hypertensive urgency I16.0 Elevated troponin R77.8 Acute kidney injury superimposed on CKD N17.9; N18.9 Pleural effusion, left J90 Hypoxia R09.02 Anemia D64.9 Anemia type: unspecified type Asymptomatic bacteriuria R82.71
[2020-09-24 16:12] LABS: Glucose Point of Care 168 mg/dL (70-110)
[2020-09-24] MEDS: FUROsemide 40 mg Tablet 80 MG PO (17:05)
[2020-09-24] MEDS: iron sucrose 200 MG in sodium chloride 0.9% (100 ml) 100 ML 220 MG IV (17:06)
[2020-09-24] MEDS: sertraline 50 mg Tablet PO (18:40)
[2020-09-24] MEDS: enoxaparin 30 mg/0.3 mL Syringe SUBCUT (18:41)
[2020-09-24 20:37] LABS: Glucose Point of Care 169 mg/dL (70-110)
[2020-09-24] MEDS: atorvastatin 40 mg Tablet PO (20:41)
[2020-09-24] MEDS: diphenhydrAMINE 25 mg Capsule PO (20:41)
--- NOTE | 2020-09-24 22:58 | PM.PN ---
Subjective Subjective: Interval history: No records of stress test or cath from outside hospital. Medications: Reviewed: Yes Medication Review Details: Current Medications Acetaminophen (Acetaminophen 325 Mg Tablet) 650 mg PO BEDTIME PRN PRN Reason: MILD PAIN Last Admin: 09/24/20 10:40 Dose: 650 mg Documented by: Albuterol Sulfate (Albuterol 2.5 Mg/0.5 Ml Neb) 2.5 mg INHALATION Q4H.RESPIRATORY PRN PRN Reason: SHORTNESS OF BREATH Aminophylline (Aminophylline 25 Mg/Ml Sdv 10 Ml) 25 mg IVP Q2M PRN PRN Reason: see dose instructions Stop: 09/25/20 06:26 Amlodipine Besylate (Amlodipine 10 Mg Tablet) 10 mg PO DAILY [facility] Last Admin: 09/24/20 10:39 Dose: 10 mg Documented by: Aspirin (Aspirin 81 Mg Ec Tablet) 81 mg PO DAILY [facility] Last Admin: 09/24/20 10:34 Dose: 81 mg Documented by: Atorvastatin Calcium (Atorvastatin 40 Mg Tablet) 40 mg PO BEDTIME [facility] Last Admin: 09/24/20 20:41 Dose: 40 mg Documented by: Carvedilol (Carvedilol 6.25 Mg Tablet) 6.25 mg PO BID@ [facility] Last Admin: 09/24/20 20:41 Dose: 6.25 mg Documented by: Dextrose (Dextrose 50% Syringe 50 Ml) 25 ml IVP ONCE PRN; Protocol PRN Reason: hypoglycemia protocol Dextrose (Dextrose 50% Syringe 50 Ml) 50 ml IVP PRN PRN; Protocol PRN Reason: hypoglycemia protocol Diphenhydramine HCl (Diphenhydramine 25 Mg Capsule) 25 mg PO BEDTIME PRN PRN Reason: INSOMNIA Last Admin: 09/24/20 20:41 Dose: 25 mg Documented by: Enoxaparin Sodium (Enoxaparin 30 Mg/0.3 Ml Syringe) 30 mg SUBCUT Q24H [facility] Last Admin: 09/24/20 18:41 Dose: 30 mg Documented by: Furosemide (Furosemide 40 Mg Tablet) 80 mg PO BID@08,16 [facility] Last Admin: 09/24/20 17:05 Dose: 80 mg Documented by: Glucagon (Glucagon 1 Mg/Ml Inj 1 Ml) 1 mg IM ONCE PRN; Protocol PRN Reason: Adult Acute Hypoglycemia Prot. Dextrose (D5w) 500 mls @ 100 mls/hr IV ONCE PRN; Protocol PRN Reason: Adult Acute Hypoglycemia Prot Iron Sucrose 200 mg/ Sodium (Chloride) 110 mls @ 220 mls/hr IV Q24H [facility] Stop: 09/28/20 16:29 Last Infusion: 09/24/20 17:45 Dose: Infused Documented by: Insulin Aspart (Insulin Aspart 100 Unit/1 Ml) 0 unit SUBCUT WM&BEDTIME [facility]; Protocol Last Admin: 09/24/20 20:38 Dose: 2 unit Documented by: Insulin Detemir (Insulin Detemir 100 Units/1 Ml) 25 unit SUBCUT BEDTIME@2100 [facility] [place] Last Admin: 09/16/20 20:56 Dose: 25 unit Documented by: Isosorbide Mononitrate (Isosorbide Mononitrate Er 30 Mg Tablet) 15 mg PO DAILY [facility] [place] Last Admin: 09/24/20 10:34 Dose: 15 mg Documented by: Lactulose (Lactulose Oral Liq 20 Gm/30 Ml Udc) 20 gm PO Q6H [facility] Last Admin: 09/24/20 18:35 Dose: Not Given Documented by: Losartan Potassium (Losartan 50 Mg Tablet) 25 mg PO DAILY [facility] [place] Last Admin: 09/24/20 10:35 Dose: 25 mg Documented by: Nitroglycerin (Nitroglycerin 0.4 Mg Sublingual Tablet) 0.4 mg SUBLINGUAL Q5M PRN PRN Reason: CHEST PAIN Stop: 09/25/20 06:26 Nystatin (Nystatin Powder 15 Gm Btl) 1 applic TOPICAL BID [facility] Last Admin: 09/24/20 18:40 Dose: Not Given Documented by: Ondansetron HCl (Ondansetron 2 Mg/Ml Sdv 2 Ml) 4 mg IVP Q6H PRN PRN Reason: NAUSEA AND VOMITING Ondansetron HCl (Ondansetron 2 Mg/Ml Sdv 2 Ml) 4 mg IVP Q2M PRN PRN Reason: NAUSEA Polyethylene Glycol (Polyethylene Glycol 3350 Pkt 17 Gm) 17 gm PO DAILY [facility] [place] Last Admin: 09/24/20 10:45 Dose: Not Given Documented by: Senna/Docusate Sodium (Sennosides-Docusate Tablet) 1 tab PO DAILY [facility] [place] Last Admin: 09/24/20 11:05 Dose: Not Given Documented by: Sertraline HCl (Sertraline 50 Mg Tablet) 50 mg PO Q24H [facility] [place] Last Admin: 09/24/20 18:40 Dose: 50 mg Documented by: Tramadol HCl (Tramadol 50 Mg Tablet) 50 mg PO Q8H PRN PRN Reason: MODERATE PAIN Last Admin: 09/24/20 20:40 Dose: 50 mg Documented by: Vitals/I&O/Wt Last Vital Signs Temp 98.1 F 09/24/20 19:22 Pulse 20 L 09/24/20 19:22 Resp 91 H 09/24/20 19:22 BP 135/60 09/24/20 19:22 Pulse Ox 91 09/24/20 19:22 09/24/20 09/24/20 09/24/20 06:59 14:59 22:59 Intake Total 720 / 1200 600 / 600 590 / 1190 Output Total 300 / 550 Balance 420 / 650 600 / 600 590 / 1190 Weight last 48 hrs Weight 241 lb Weight 240 lb Physical Exam Narrative: EXAM NARRATIVE: Const COMMON NORMALS: no acute distress, patient oriented x3 and alert GENERAL APPEARANCE: cooperative, comfortable, well kempt and well hydrated NUTRITIONAL APPEARANCE: obese HENMT COMMON NORMALS: normocephalic, atraumatic, hearing grossly normal bilaterally and external ears normal HEAD & SCALP: normocephalic and atraumatic FACE & SINUS: normal facial exam EXTERNAL EAR: Yes external ears normal Eye COMMON NORMALS: Equal, round and reactive pupils present, EOMs intact bilaterally, conjunctivae normal and no scleral icterus GENERAL EYE: appearance normal, both eyes and all related structures ALIGNMENT: Yes alignment normal EYELID: eyelids normal CONJUNCTIVA: Yes conjunctivae normal SCLERA: sclerae normal PUPIL: Yes Equal, round and reactive pupils present Neck/C-Spine COMMON NORMALS: supple and no JVD GENERAL: Yes normal visual inspection, Yes trachea midline and No Mass present (neck) CAROTIDS: Yes normal carotid upstroke CERVICAL SPINE: Yes cervical ROM normal Chest COMMONS NORMALS: normal inspection of the chest and normal palpation of entire chest wall CHEST: Yes Symmetrical chest wall rise and No tenderness Resp COMMON NORMALS: clear to auscultation bilaterally (decreased breath sound at bases) EFFORT & INSPECTION: Yes able to speak in complete sentences AUSCULTATION: clear to auscultation bilaterally (decreased breath sound at bases), no crackles, no rales, no rhonchi, no wheezes and vesicular breath sounds Cardio COMMON NORMALS: no JVD, regular rate, regular rhythm, S1 normal heart sound present, S2 normal heart sound present and Peripheral pulses 2+ throughout PALPATION: normal PMI RATE: regular rate RHYTHM: regular rhythm HEART SOUNDS: S1 normal heart sound present, S2 normal heart sound present, no gallops and Murmur heart sound present systolic BRUITS: no carotid bruits PERIPHERAL PULSES: Peripheral pulses 2+ throughout, radial pulses present, posterior tibial pulses present and dorsalis pedis present GI COMMON NORMALS: Soft to palpation and No hepatosplenomegaly present AUSCULTATION: Yes normoactive bowel sounds PALPATION: Yes Soft to palpation, No Tenderness to palpation present (GI), No Guarding due to palpation present (GI), No Rigid due to palpation, Yes No hepatosplenomegaly present and No Ascites present PERCUSSION: tympanic to percussion Extremity GENERAL: No calf tenderness, No clubbing, No cyanosis, Yes edema and No pallor Neuro COMMON NORMALS: patient oriented x3, CN's II-XII intact bilaterally, no focal motor deficits and gait normal SENSORIUM/ORIENTATION: Yes alert Psych COMMON NORMALS: Normal thought process present and speech normal APPEARANCE: Yes well kempt SPEECH: Yes normal speech MOOD & AFFECT: Yes euthymic mood THOUGHT PROCESS: Normal thought process present THOUGHT CONTENT: Yes Normal thought content present Skin HAIR: normal NAILS: normal and no clubbing Urinary Catheter Management^: Jesus: Cath Placed During This Visit: yes Reason for Continuing Indwelling Catheter: Accurate Measurement of Urinary Output in Critically Ill Patients Urinary Catheter Date of Insertion: 09/15/20 Urinary Catheter Time of Insertion: 14:26 Data : 09/24/20 04:22 09/24/20 04:22 Micro: Microbiology 09/20/20 15:45 Gram Stain - Final Pleural Fluid Body Fluid Culture - Preliminary A&P Assessment and plan (1) Acute exacerbation of CHF (congestive heart failure): Lasix increased by nephrology to 80 mg PO BID. -currently on low dose losartan and coreg. -I do not have records from [facility]. -Possible moderate ischemia on stress test, however breast attenuation artifact noted as well. -No CP. May benefit from C, however she would in all likelihood end up on dialysis. -I had a long discussion with the patient and will manage medically for now. I will talk to her daughter and follow up on records and decision of cath based on that. -Patient seems to be inclined more towards medical management at this time. -f/u on records. Status: Acute Qualifiers: Heart failure type: combined systolic and diastolic Qualified Code(s): I50.43 - Acute on chronic combined systolic (congestive) and diastolic (congestive) heart failure (2) Hypertension: Status: Acute Qualifiers: Hypertension type: essential hypertension Qualified Code(s): I10 - Essential (primary) hypertension (3) Diabetes: Status: Acute Qualifiers: Diabetes mellitus type: type 2 Diabetes mellitus senior living insulin use: with senior living use Diabetes mellitus complication status: with neurologic complications Diabetes mellitus complication detail: with polyneuropathy Qualified Code(s): E11.42 - Type 2 diabetes mellitus with diabetic polyneuropathy; 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 Please feel free to call with questions or concerns. Attestations Medical Necessity Statement*: Patient needs to be in hospital for the management of heart failure, JOSE LUIS on Worsening CKD. Coding Level of Care Code Acute Pure Culture Operator for Ivett Fwd Diagnoses Acute exacerbation of CHF (congestive heart failure) I50.43 Heart failure type: combined systolic and diastolic Hypertension I10 Hypertension type: essential hypertension Diabetes E11.42; Z79.4 Diabetes mellitus type: type 2 Diabetes mellitus senior living insulin use: with senior living use Diabetes mellitus complication status: with neurologic complications Diabetes mellitus complication detail: with polyneuropathy CKD (chronic kidney disease) N18.9 Chronic kidney disease stage: unspecified stage Acute kidney injury N17.9
[2020-09-25] VITALS (12 sets, daily range): BP systolic 125–152; BP diastolic 58–62; PULSE 55–67; RESP 12–19; TEMP 36.3–36.7; O2SAT 90–96
--- NOTE | 2020-09-25 | SCC_ITS ---
Procedure Done: Placement of 16 [place]i 23 cm long AshSplit tunneled hemodialysis catheter Fluoroscopic guidance and interpretation for placement of catheter Ultrasound guidance and interpretation to access the right internal jugular vein 140.2 seconds of fluoroscopic guidance, for a cumulative dose of 34.48 mGy, was provided to Dr. De La Vega by the radiology department. C-arm images of the chest were saved for the patient's permanent record. [facility]
[2020-09-25 05:03] LABS: Basophils # 0.1 10^3/uL (0.0-0.1); Basophils % 1.5 %; Eosinophils # 0.5 10^3/uL (0.0-0.8); Eosinophils % 7.1 %; Hematocrit 29.1 % (37.0-47.0); Hemoglobin 8.9 g/dL (11.5-15.3); Lymphocytes # 1.7 10^3/uL (0.8-4.8); Lymphocytes % 23.5 %; Mean Corpuscular HGB Conc 30.6 g/dL (30.0-36.0); Mean Corpuscular Hemoglobin 26.4 pg (28.0-34.0); Mean Corpuscular Volume 86.4 fL (81-99); Monocytes # 1.2 10^3/uL (0.2-0.9); Monocytes % 16.2 %; Neutrophils # 3.69 10^3/uL (1.8-7.7); Neutrophils % 51.4 %; Nucleated Red Blood Cells % 0 %; Platelet Count 428 10^3/cmm (130-400); Red Blood Count 3.37 10^6/uL (4.1-5.3); Red Cell Distribution Width 15.6 % (12.1-15.1); White Blood Count 7.2 10^3/uL (4.0-10.0)
[2020-09-25 05:26] LABS: Anion Gap 17.3 (5-19); Calcium 8.5 mg/dL (8.5-10.5); Carbon Dioxide 23 mmol/L (22-29); Chloride 102 mmol/L (98-107); Glucose 103 mg/dL (65-115); Osmolality Calculated 314 mOsm/kg (285-295); Potassium 4.3 mmol/L (3.5-5.1); Sodium 138 mmol/L (136-145)
[2020-09-25 05:28] LABS: Blood Urea Nitrogen 91 mg/dL (8-23)
--- NOTE | 2020-09-25 06:46 | PM.PN ---
Subjective Subjective: Interval history: O2 sat fell overnight, currently 95% 1 L NC Denies Chest pain, dyspnea Medications: Reviewed: Yes Vitals/I&O/Wt Last Vital Signs Temp 97.7 F 09/25/20 03:57 Pulse 56 L 09/25/20 06:00 Resp 15 09/25/20 03:57 BP 125/61 09/25/20 03:57 Pulse Ox 93 09/25/20 03:57 09/24/20 09/24/20 09/25/20 14:59 22:59 06:59 Intake Total 600 / 600 590 / 1190 Output Total 1050 / 1050 Balance 600 / 600 590 / 1190 -1050 / 140 Weight last 48 hrs Weight 107.955 kg Weight 109.316 kg Physical Exam Const: COMMON NORMALS: no acute distress Resp: AUSCULTATION: crackles Cardio: COMMON NORMALS: regular rhythm RHYTHM: regular rhythm Extremity: GENERAL: Yes edema (2-3+) Urinary Catheter Management^: Jesus: Cath Placed During This Visit: yes Reason for Continuing Indwelling Catheter: Accurate Measurement of Urinary Output in Critically Ill Patients Urinary Catheter Date of Insertion: 09/15/20 Urinary Catheter Time of Insertion: 14:26 Data : 09/25/20 04:32 09/25/20 04:32 Micro: Microbiology 09/20/20 15:45 Gram Stain - Final Pleural Fluid Body Fluid Culture - Preliminary A&P Additional A&P Information 1. Acute kidney injury, renal function continues to decline, volume overload persists 2. 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 Anemia: iron + erythropoeitin deficient 4. CHF, CAD Recommend: Iris needs further diuresis. I think best option at this point is initiation of dialysis. I discussed this with her. She is agreeable. Consult surgery for placement of tunneled HD catheter. Dialysis may change plan regarding cardiac catheterization. IV iron, epogen when iron load complete. Referral to outpatient dialysis. Once dialysis initiated, increase ARB. Attestations Medical Necessity Statement*: see above Time Spent in Patient Care: Greater than 35 minutes Coding Level of Care Code Acute Motor Equipment Commanding Officer for Ivett Koo
[2020-09-25 07:18] LABS: Glucose Point of Care 97 mg/dL (70-110)
[2020-09-25] MEDS: FUROsemide 40 mg Tablet 80 MG PO (07:59)
[2020-09-25] MEDS: TRAMadol 50 mg Tablet PO ×2 (08:00→20:26)
--- NOTE | 2020-09-25 08:00 | PC.NURSE ---
Dr. Figueroa at bedside with telenephrology. Discussed plans to start patient on dialysis. Dr. Savage at bedside to evaluate patient. Verbal order to place patient on NPO status for tunneled catheter placement. Verbal order to hold morning dose of coreg due to bradycardia. Decrease dose to 3.125 mg BID and give next dose at 2100. Verbal order to hold aspirin and lovenox for tunneled catheter placement. RBVO. Nurse to continue to monitor.
[2020-09-25] MEDS: amlodipine 10 mg Tablet PO (08:04)
[2020-09-25] MEDS: isosorbide mononitrate ER 30 mg Tablet 15 MG PO (08:04)
--- NOTE | 2020-09-25 09:55 | P.PN_ITS ---
Subjective Subjective: Interval history: ,deny any chest pain, sob, Currently she is saturating well on 1-2 Ls oxygen. BUN/SCR has continued to worsen, though her urine output on 80 mg po q12 h lasix is good. Medications: Reviewed: Yes Medication Review Details: Current Medications Acetaminophen (Acetaminophen 325 Mg Tablet) 650 mg PO BEDTIME PRN PRN Reason: MILD PAIN Last Admin: 09/24/20 10:40 Dose: 650 mg Documented by: Albuterol Sulfate (Albuterol 2.5 Mg/0.5 Ml Neb) 2.5 mg INHALATION Q4H.RESPIRATORY PRN PRN Reason: SHORTNESS OF BREATH Aminophylline (Aminophylline 25 Mg/Ml Sdv 10 Ml) 25 mg IVP Q2M PRN PRN Reason: see dose instructions Stop: 09/25/20 06:26 Amlodipine Besylate (Amlodipine 10 Mg Tablet) 10 mg PO DAILY [facility] Last Admin: 09/24/20 10:39 Dose: 10 mg Documented by: Aspirin (Aspirin 81 Mg Ec Tablet) 81 mg PO DAILY [facility] Last Admin: 09/24/20 10:34 Dose: 81 mg Documented by: Atorvastatin Calcium (Atorvastatin 40 Mg Tablet) 40 mg PO BEDTIME [facility] Last Admin: 09/24/20 20:41 Dose: 40 mg Documented by: Carvedilol (Carvedilol 6.25 Mg Tablet) 6.25 mg PO BID@ [facility] Last Admin: 09/24/20 20:41 Dose: 6.25 mg Documented by: Dextrose (Dextrose 50% Syringe 50 Ml) 25 ml IVP ONCE PRN; Protocol PRN Reason: hypoglycemia protocol Dextrose (Dextrose 50% Syringe 50 Ml) 50 ml IVP PRN PRN; Protocol PRN Reason: hypoglycemia protocol Diphenhydramine HCl (Diphenhydramine 25 Mg Capsule) 25 mg PO BEDTIME PRN PRN Reason: INSOMNIA Last Admin: 09/24/20 20:41 Dose: 25 mg Documented by: Enoxaparin Sodium (Enoxaparin 30 Mg/0.3 Ml Syringe) 30 mg SUBCUT Q24H [facility] Last Admin: 09/24/20 18:41 Dose: 30 mg Documented by: Furosemide (Furosemide 40 Mg Tablet) 80 mg PO BID@08,16 [facility] Last Admin: 09/24/20 17:05 Dose: 80 mg Documented by: Glucagon (Glucagon 1 Mg/Ml Inj 1 Ml) 1 mg IM ONCE PRN; Protocol PRN Reason: Adult Acute Hypoglycemia Prot. Dextrose (D5w) 500 mls @ 100 mls/hr IV ONCE PRN; Protocol PRN Reason: Adult Acute Hypoglycemia Prot Iron Sucrose 200 mg/ Sodium (Chloride) 110 mls @ 220 mls/hr IV Q24H [facility] Stop: 09/28/20 16:29 Last Infusion: 09/24/20 17:45 Dose: Infused Documented by: Insulin Aspart (Insulin Aspart 100 Unit/1 Ml) 0 unit SUBCUT WM&BEDTIME [facility]; Protocol Last Admin: 09/24/20 20:38 Dose: 2 unit Documented by: Insulin Detemir (Insulin Detemir 100 Units/1 Ml) 25 unit SUBCUT BEDTIME@2100 [facility] Last Admin: 09/16/20 20:56 Dose: 25 unit Documented by: Isosorbide Mononitrate (Isosorbide Mononitrate Er 30 Mg Tablet) 15 mg PO DAILY [facility] Last Admin: 09/24/20 10:34 Dose: 15 mg Documented by: Lactulose (Lactulose Oral Liq 20 Gm/30 Ml Udc) 20 gm PO Q6H [facility] Last Admin: 09/24/20 18:35 Dose: Not Given Documented by: Losartan Potassium (Losartan 50 Mg Tablet) 25 mg PO DAILY [facility] Last Admin: 09/24/20 10:35 Dose: 25 mg Documented by: Nitroglycerin (Nitroglycerin 0.4 Mg Sublingual Tablet) 0.4 mg SUBLINGUAL Q5M PRN PRN Reason: CHEST PAIN Stop: 09/25/20 06:26 Nystatin (Nystatin Powder 15 Gm Btl) 1 applic TOPICAL BID [facility] Last Admin: 09/24/20 18:40 Dose: Not Given Documented by: Ondansetron HCl (Ondansetron 2 Mg/Ml Sdv 2 Ml) 4 mg IVP Q6H PRN PRN Reason: NAUSEA AND VOMITING Ondansetron HCl (Ondansetron 2 Mg/Ml Sdv 2 Ml) 4 mg IVP Q2M PRN PRN Reason: NAUSEA Polyethylene Glycol (Polyethylene Glycol 3350 Pkt 17 Gm) 17 gm PO DAILY [facility] Last Admin: 09/24/20 10:45 Dose: Not Given Documented by: Senna/Docusate Sodium (Sennosides-Docusate Tablet) 1 tab PO DAILY [facility] Last Admin: 09/24/20 11:05 Dose: Not Given Documented by: Sertraline HCl (Sertraline 50 Mg Tablet) 50 mg PO Q24H [facility] Last Admin: 09/24/20 18:40 Dose: 50 mg Documented by: Tramadol HCl (Tramadol 50 Mg Tablet) 50 mg PO Q8H PRN PRN Reason: MODERATE PAIN Last Admin: 09/24/20 20:40 Dose: 50 mg Documented by: Vitals/I&O/Wt Last Vital Signs Temp 98.1 F 09/25/20 07:22 Pulse 59 L 09/25/20 07:40 Resp 17 09/25/20 07:40 BP 137/60 09/25/20 07:22 Pulse Ox 95 09/25/20 07:40 09/24/20 09/25/20 09/25/20 22:59 06:59 14:59 Intake Total 590 / 1190 Output Total 1050 / 1050 Balance 590 / 1190 -1050 / 140 Weight last 48 hrs Weight 107.955 kg Weight 109.316 kg Physical Exam Const: COMMON NORMALS: patient oriented x3 HENMT: COMMON NORMALS: normocephalic and atraumatic HEAD & SCALP: normocephalic and atraumatic Resp: COMMON NORMALS: normal respiratory effort and clear to auscultation bilaterally EFFORT & INSPECTION: Yes symmetric chest movement AUSCULTATION: clear to auscultation bilaterally Cardio: COMMON NORMALS: regular rate, regular rhythm, S1 normal heart sound present, S2 normal heart sound present, No gallops present (Cardio), No murmurs present (Cardio), No rub (Cardio) and Peripheral pulses 2+ throughout RATE: regular rate RHYTHM: regular rhythm HEART SOUNDS: S1 normal heart sound present and S2 normal heart sound present PERIPHERAL PULSES: Peripheral pulses 2+ throughout GI: COMMON NORMALS: Normal to inspection, nondistended, normoactive bowel sounds present, Soft to palpation, non-tender, No hepatosplenomegaly present and no masses AUSCULTATION: Yes normoactive bowel sounds PALPATION: Yes Soft to palpation and Yes No hepatosplenomegaly present RECTAL EXAM: deferred Extremity: COMMON NORMALS: no clubbing, cyanosis or edema and no pedal edema NARRATIVE EXTREMITY EXAM: 2+ B/L L/E Pitting Edema Neuro: COMMON NORMALS: patient oriented x3 Urinary Catheter Management^: Jesus: Cath Placed During This Visit: yes Reason for Continuing Indwelling Catheter: Accurate Measurement of Urinary Output in Critically Ill Patients Urinary Catheter Date of Insertion: 09/15/20 Urinary Catheter Time of Insertion: 14:26 Data : 09/25/20 04:32 09/25/20 04:32 Micro: Microbiology 09/20/20 15:45 Gram Stain - Final Pleural Fluid Body Fluid Culture - Final A&P Assessment and plan (1) Acute kidney injury superimposed on CKD: JOSE LUIS ON WORSEING 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 currently diuresing well with lasix 80 mg q12 h daily Current plan is to place tunneled catheter today and start her on H/D Appreciate nephrology recommendations Status: Acute (2) Acute exacerbation of CHF (congestive heart failure): Initially on Lasix 80 mg IV every 12 hours + metolazone 5mg po daily. Currently on alsix 80 mg po q12 h daily Prior Echocardiogram Normal left ventricular cavity size and markedly increased wall thickness. Severe concentric left ventricular hypertrophy. Mildly decreased decreased left ventricular systolic function.. Left ventricular ejection fraction is estimated at 45-50 %. Grade II diastolic dysfunction, moderately elevated filling pressures. 2D echo with contrast: 09/23 : Mildly decreased left ventricle systolic function. Left ventricle ejection fraction is estimated at 45 to 50%.There seems to be mild hypokinesis of mid to apical anterolateral and basal inferolateral plascencia. Stress test: 09/24: Large sized perfusion abnormality of moderate severity in inferior and lateral plascencia with reversibility noted in entire anterior, mid to apical inferior and mid to apical inferolateral plascencia. This may represent ischemia in multivessel territories. However in absence of prone imaging, breast attenuation artifact cannot be completely ruled out. The left ventricular ejection fraction is mildly reduced with a value of 48%. There has been Drop in E.F as compared to prior Echo. Appreciate Cardiology Recommendations Also reports a past medical history of sleep apnea, does not use CPAP co nsistently at home, will order for hospital use and encourage compliance at home Oxygen requirements improving, at rest is saturating 92 to 93% on room air, saturation dropped to 89% with minimal exertion, requires 1 to 2 L supplemental O2 in this case. Status: Acute Qualifiers: Heart failure type: combined systolic and diastolic Qualified Code(s): I50.43 - Acute on chronic combined systolic (congestive) and diastolic (congesti ve) heart failure (3) Anemia: MORAIMA . Venofer 200 MG IV * 5 Doses Status: Acute Qualifiers: Anemia type: unspecified type Qualified Code(s): D64.9 - Anemia, unspecified (4) Hypertensive urgency: This is now resolved Continue carvedilol 12.5 p.o. twice daily, amlodipine 10 mg p.o. daily In the evening hours systolic blood pressure trending up to 1 70-1 80 systolic subsequent days. Add Imdur 15 mg p.o. daily in the afternoon and monitor for response Status: Acute (5) Elevated troponin: negative serial delta, no acute changes on EKG, less concerning for AMI reports stess test and angigram perfromed in Jun 2019 at [facility], records requested , not received yet started on asa 81mg po daily primary prevention 10 year ASCVD risk score 34%--> started atorvastatin Echocardiogram as noted above, follow-up as outpatient Status: Acute (6) Pleural effusion, left: Persistent since 04/2020, less likely consolidative process underlying CT chest without any underlying masses or consolidation, no current indication for antibiotics thoracentesis in am given ongoing pleuritic pain and persisting dyspnea in spite of improving pulm edema and CHF otherwise. S/P lt thoracentesis ( 600 cc straw colored Transduative fluid removed ) Status: Acute (7) Hypoxia: likely from CHF and pleural effusion : Improving lasix as above less likely PNA CT chest with persistent pleural effusion Status: Acute (8) Asymptomatic bacteriuria: Patient has chronic asymptomatic bacteriuria. Urine culture with Enterococcus durans noted, likely to be a colonizer. Denies dysuria, frequency. Started on amoxicillin per nephrology, completed short course of 3 days. Status: Acute Additional A&P Information + D dimer with hypoxia: Cannot obtain CTA chest to avoid contrast injury in CKD, V/q scan may not be revealing in the presence of left pleural effusion and CHF, lower extremity Doppler negative for DVT, lower suspicion for PE. Dispo: Home with HH vs SNF when ready, PT recommendatiosn appreciated DVT prophylaxis: Lovenox Full code Attestations Medical Necessity Statement*: Patient needs to be in hospital for the management of H/F, ESRD, need for tunneled catheter placement and need for initiation of H/D Coding Level of Care Code Acute Production [employer] for Chg Fwd Exam Detailed Diagnoses Acute kidney injury superimposed on CKD N17.9; N18.9 Acute exacerbation of CHF (congestive heart failure) I50.43 Heart failure type: combined systolic and diastolic Anemia D64.9 Anemia type: unspecified type Hypertensive urgency I16.0 Elevated troponin R77.8 Pleural effusion, left J90 Hypoxia R09.02 Asymptomatic bacteriuria R82.71
[2020-09-25 10:39] LABS: Hepatitis B Core AB, Total Non-Reactive (Nonreactive); Hepatitis B Surface Antigen Non-Reactive (Nonreactive); Hepatitis C Virus Antibody Non-Reactive (Nonreactive)
[2020-09-25 10:42] LABS: Hepatitis B Surface AB < 3.5 (11.5-1000)
[2020-09-25 11:40] LABS: Glucose Point of Care 96 mg/dL (70-110)
--- NOTE | 2020-09-25 12:49 | ANES.PREANE2 ---
Pre-Anesthetic Assessment Pre-Anesthetic Assessment: Height/Weight: Height 1.65 m Weight 107.955 kg Temp Pulse Resp BP Pulse Ox 97.9 F 61 18 138/62 94 09/25/20 11:18 09/25/20 11:18 09/25/20 11:18 09/25/20 11:18 09/25/20 11:18 Preop Diagnosis: ESRD Proposed Procedure: tunneled dialysis catheter Familial anesthetic complications: > 8 hrs Was Beta Maddie taken within 24 hours: N/A Was Clonidine taken within 24 hours: N/A Last intake: > 8 hrs Social: Social History: No alcohol and No tobacco Exam: Pre-Anes Outpt Exam: alert, oriented x 3, clear to auscultation bilaterally and regular rate & rhythm Airway: Cervical ROM: WNL MP: 3 Dentition: Other (no teeth) Pulmonary: Pulmonary: Sleep apnea (cpap) Comments: 1-2 L NC CV/HEM: CV/HEM: CHF Comments: hx tkasubo's in 2019 Negative stress test 09/13 : : Chronic renal Insufficiency Metabolic: Metabolic: DM and Hyperlipidemia Anesthetic Plan: ASA status: 4 Anesthesia: MAC Risk of > 500 ml blood loss (7ml/kg in children): No Meds/Allergies Current Medications: Current Medications Generic Name Dose Route Start Last Admin Trade Name Freq PRN Reason Stop Dose Admin Acetaminophen 650 mg 09/18/20 21:19 09/24/20 10:40 Acetaminophen 32 5 Mg Tablet PO 650 mg BEDTIME PRN Administration MILD PAIN Amlodipine Besylat e 10 mg 09/18/20 09:00 09/25/20 08:04 Amlodipine 10 Mg Tablet PO 10 mg DAILY JT Administration Aspirin 81 mg 09/16/20 16:05 09/25/20 08:01 Aspirin 81 Mg Ec Tablet PO Not Given DAILY JT Atorvastatin Calci um 40 mg 09/17/20 21:00 09/24/20 20:41 Atorvastatin 40 Mg Tablet PO 40 mg BEDTIME JT Administration Diphenhydramine HC l 25 mg 09/18/20 21:17 09/24/20 20:41 Diphenhydramine 25 Mg Capsule PO 25 mg BEDTIME PRN Administration INSOMNIA Enoxaparin Sodium 30 mg 09/16/20 18:00 09/24/20 18:41 Enoxaparin 30 Mg /0.3 Ml Syringe SUBCUT 30 mg Q24H JT Administration Furosemide 80 mg 09/24/20 16:00 09/25/20 07:59 Furosemide 40 Mg Tablet PO 80 mg BID@08,16 [facility] Administration Iron Sucrose 200 m g/ Sodium 110 mls @ 220 mls /hr 09/24/20 16:00 09/24/20 17:45 Chloride IV 09/28/20 16:29 Infused Q24H JT Infusion Insulin Aspart 0 unit 09/16/20 18:00 09/25/20 11:39 Insulin Aspart 1 00 Unit/1 Ml SUBCUT Not Given WM&BEDTIME [facility] Protocol Insulin Detemir 25 unit 09/15/20 21:00 09/16/20 20:56 Insulin Detemir 100 Units/1 Ml SUBCUT 25 unit BEDTIME@2100 [facility] Administration Isosorbide Mononit rate 15 mg 09/21/20 15:00 09/25/20 08:04 Isosorbide [place] itrate Er 30 Mg Ta blet PO 15 mg DAILY [facility] Administration Lactulose 20 gm 09/21/20 12:30 09/25/20 11:39 Lactulose Oral L iq 20 Gm/30 Ml Udc PO Not Given Q6H [facility] Nystatin 1 applic 09/20/20 18:00 09/25/20 08:06 Nystatin Powder 15 Gm Btl TOPICAL Not Given BID [facility] Polyethylene Glyco l 17 gm 09/20/20 13:53 09/25/20 08:01 Polyethylene Gly col 3350 Pkt 17 Gm PO Not Given DAILY [facility] Senna/Docusate Sod ium 1 tab 09/20/20 13:53 09/25/20 08:01 Sennosides-Docus ate Tablet PO Not Given DAILY [facility] Sertraline HCl 50 mg 09/15/20 19:14 09/24/20 18:40 Sertraline 50 Mg Tablet PO 50 mg Q24H JT Administration Tramadol HCl 50 mg 09/24/20 19:04 09/25/20 08:00 Tramadol 50 Mg T ablet PO 50 mg Q8H PRN Administration MODERATE PAIN Additional Medication Information: Current Medications Acetaminophen (Acetaminophen 325 Mg Tablet) 650 mg PO BEDTIME PRN PRN Reason: MILD PAIN Last Admin: 09/24/20 10:40 Dose: 650 mg Documented by: Albuterol Sulfate (Albuterol 2.5 Mg/0.5 Ml Neb) 2.5 mg INHALATION Q4H.RESPIRATORY PRN PRN Reason: SHORTNESS OF BREATH Aminophylline (Aminophylline 25 Mg/Ml Sdv 10 Ml) 25 mg IVP Q2M PRN PRN Reason: see dose instructions Stop: 09/25/20 06:26 Amlodipine Besylate (Amlodipine 10 Mg Tablet) 10 mg PO DAILY [facility] Last Admin: 09/24/20 10:39 Dose: 10 mg Documented by: Aspirin (Aspirin 81 Mg Ec Tablet) 81 mg PO DAILY [facility] Last Admin: 09/24/20 10:34 Dose: 81 mg Documented by: Atorvastatin Calcium (Atorvastatin 40 Mg Tablet) 40 mg PO BEDTIME [facility] Last Admin: 09/24/20 20:41 Dose: 40 mg Documented by: Carvedilol (Carvedilol 6.25 Mg Tablet) 6.25 mg PO BID@ [facility] Last Admin: 09/24/20 20:41 Dose: 6.25 mg Documented by: Dextrose (Dextrose 50% Syringe 50 Ml) 25 ml IVP ONCE PRN; Protocol PRN Reason: hypoglycemia protocol Dextrose (Dextrose 50% Syringe 50 Ml) 50 ml IVP PRN PRN; Protocol PRN Reason: hypoglycemia protocol Diphenhydramine HCl (Diphenhydramine 25 Mg Capsule) 25 mg PO BEDTIME PRN PRN Reason: INSOMNIA Last Admin: 09/24/20 20:41 Dose: 25 mg Documented by: Enoxaparin Sodium (Enoxaparin 30 Mg/0.3 Ml Syringe) 30 mg SUBCUT Q24H [facility] Last Admin: 09/24/20 18:41 Dose: 30 mg Documented by: Furosemide (Furosemide 40 Mg Tablet) 80 mg PO BID@ [facility] Last Admin: 09/24/20 17:05 Dose: 80 mg Documented by: Glucagon (Glucagon 1 Mg/Ml Inj 1 Ml) 1 mg IM ONCE PRN; Protocol PRN Reason: Adult Acute Hypoglycemia Prot. Dextrose (D5w) 500 mls @ 100 mls/hr IV ONCE PRN; Protocol PRN Reason: Adult Acute Hypoglycemia Prot Iron Sucrose 200 mg/ Sodium (Chloride) 110 mls @ 220 mls/hr IV Q24H [facility] Stop: 09/28/20 16:29 Last Infusion: 09/24/20 17:45 Dose: Infused Documented by: Insulin Aspart (Insulin Aspart 100 Unit/1 Ml) 0 unit SUBCUT WM&BEDTIME [facility]; Protocol Last Admin: 09/24/20 20:38 Dose: 2 unit Documented by: Insulin Detemir (Insulin Detemir 100 Units/1 Ml) 25 unit SUBCUT BEDTIME@2100 [facility] Last Admin: 09/16/20 20:56 Dose: 25 unit Documented by: Isosorbide Mononitrate (Isosorbide Mononitrate Er 30 Mg Tablet) 15 mg PO DAILY [facility] Last Admin: 09/24/20 10:34 Dose: 15 mg Documented by: Lactulose (Lactulose Oral Liq 20 Gm/30 Ml Udc) 20 gm PO Q6H [facility] Last Admin: 09/24/20 18:35 Dose: Not Given Documented by: Losartan Potassium (Losartan 50 Mg Tablet) 25 mg PO DAILY [facility] Last Admin: 09/24/20 10:35 Dose: 25 mg Documented by: Nitroglycerin (Nitroglycerin 0.4 Mg Sublingual Tablet) 0.4 mg SUBLINGUAL Q5M PRN PRN Reason: CHEST PAIN Stop: 09/25/20 06:26 Nystatin (Nystatin Powder 15 Gm Btl) 1 applic TOPICAL BID [facility] Last Admin: 09/24/20 18:40 Dose: Not Given Documented by: Ondansetron HCl (Ondansetron 2 Mg/Ml Sdv 2 Ml) 4 mg IVP Q6H PRN PRN Reason: NAUSEA AND VOMITING Ondansetron HCl (Ondansetron 2 Mg/Ml Sdv 2 Ml) 4 mg IVP Q2M PRN PRN Reason: NAUSEA Polyethylene Glycol (Polyethylene Glycol 3350 Pkt 17 Gm) 17 gm PO DAILY [facility] Last Admin: 09/24/20 10:45 Dose: Not Given Documented by: Senna/Docusate Sodium (Sennosides-Docusate Tablet) 1 tab PO DAILY [facility] Last Admin: 09/24/20 11:05 Dose: Not Given Documented by: Sertraline HCl (Sertraline 50 Mg Tablet) 50 mg PO Q24H [facility] Last Admin: 09/24/20 18:40 Dose: 50 mg Documented by: Tramadol HCl (Tramadol 50 Mg Tablet) 50 mg PO Q8H PRN PRN Reason: MODERATE PAIN Last Admin: 09/24/20 20:40 Dose: 50 mg Documented by: PFSH Anesthesia PFSH: Medical History Acute exacerbation of CHF (congestive heart failure) Chronic kidney disease, stage 3 -Nephrology f/u as outpatient Congestive heart failure Depression 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; s/p toe amputations due to diabetic foot infections Diabetes Diabetic neuropathy Diastolic CHF -Echo: EF=60%, G1DD, no RWMA, mild pulmonary HTN, mild , mild TR, trace MR GERD (gastroesophageal reflux disease) -on PPI and carafate Hypercholesteremia -on statin Hypertension Hypertension ANA (obstructive sleep apnea) does not wear cpap by choice Takotsubo cardiomyopathy -had extensive workup done in [facility] in [place] in 06/2019; records reviewed -Echo with EF=43%, LVH, noted distal septal, apical and anterolateral hypokinesia/apical ballooning consistent with Takotsubo cardiomyopathy; mild MR. No mention of stress testing or cardiac cath. Records in chart -noted elevated troponins with no significant delta; unlikely to be acute process -telemetry monitoring -Echo: EF=60%, G1DD, no RWMA, mild pulmonary HTN, mild , mild TR, trace MR Transient cerebral ischemia Venous insufficiency (chronic) (peripheral) Surgical History 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 History of appendectomy History of bladder suspension procedure History of cataract surgery History of cholecystectomy History of drainage of abscess left vulvar/perineal area History of hernia repair History of surgery on arm left arm, due to extravasation History of total hysterectomy Family History Father CAD (coronary artery disease) by report, she never knew him Social History Smoking and tobacco status: never smoked Alcohol intake: never Caregiver/support person: No Household members: none Marital status: / Data Anesthesia CBC & Chem 7: 09/25/20 04:32 09/25/20 04:32 Other Labs: Laboratory Results - last 48 hr 09/21/20 09/21/20 09/23/20 04:05 17:15 16:50 WBC RBC Hgb Hct MCV MCH MCHC RDW Plt Count MPV Neut % (Auto) Lymph % (Auto) Bryan % (Auto) Eos % (Auto) Baso % (Auto) Neut # (Auto) Lymph # (Auto) Bryan # (Auto) Eos # (Auto) Baso # (Auto) Nucleated RBC % (auto) Nucleated RBCs # Sodium Potassium Chloride Carbon Dioxide Anion Gap BUN Creatinine GFR Calculation Glucose POC Glucose 145 H Calculated Osmolality Calcium Albumin 2.6 L Fdnvs-7-Guffdssai 0.5 H Ztzgm-0-Dawtwurst 0.9 Ftgn-9-Ujmxxjqu 0.4 Qieq-4-Umagbxbv 0.3 Gamma Globulins 0.6 L Abnorm Protein Band 1 Not Reportable U Abnormal Prot Band 2 Not Reportable U Abnormal Prot Band 3 Not Reportable Pro Electrophoresis Int See note Hep Bs Antigen Hep Bs Antibody Hep B Core Total Ab Hepatitis C Antibody [facility] Test Reference See comment 09/23/20 09/24/20 09/24/20 20:52 04:22 04:22 WBC 8.3 RBC 3.39 L Hgb 9.0 L Hct 29.2 L MCV 86.1 MCH 26.5 L MCHC 30.8 RDW 15.6 H Plt Count 402 H MPV 11.4 H Neut % (Auto) 53.5 Lymph % (Auto) 21.8 Bryan % (Auto) 16.5 Eos % (Auto) 6.8 Baso % (Auto) 1.0 Neut # (Auto) 4.43 Lymph # (Auto) 1.8 Bryan # (Auto) 1.4 H Eos # (Auto) 0.6 Baso # (Auto) 0.1 Nucleated RBC % (auto) 0 Nucleated RBCs # 0.0 Sodium 136 Potassium 4.8 Chloride 101 Carbon Dioxide 23 Anion Gap 16.8 BUN 88 H* Creatinine 3.8 H GFR Calculation Not Reportable Glucose 95 POC Glucose 287 H Calculated Osmolality 309 H Calcium 8.4 L Albumin Koejl-4-Nbsxydccg Ddepf-3-Lsfuxjwzg Rqbt-7-Dvtkdzqt Biwb-4-Zanqpdvl Gamma Globulins Abnorm Protein Band 1 U Abnormal Prot Band 2 U Abnormal Prot Band 3 Pro Electrophoresis Int Hep Bs Antigen Hep Bs Antibody Hep B Core Total Ab Hepatitis C Antibody [facility] Test Reference 09/24/20 09/24/20 09/24/20 06:44 11:15 16:08 WBC RBC Hgb Hct MCV MCH MCHC RDW Plt Count MPV Neut % (Auto) Lymph % (Auto) Bryan % (Auto) Eos % (Auto) Baso % (Auto) Neut # (Auto) Lymph # (Auto) Bryan # (Auto) Eos # (Auto) Baso # (Auto) Nucleated RBC % (auto) Nucleated RBCs # Sodium Potassium Chloride Carbon Dioxide Anion Gap BUN Creatinine GFR Calculation Glucose POC Glucose 113 H 165 H 168 H Calculated Osmolality Calcium Albumin Mjbng-9-Cafpaayii Riqww-4-Xajoantio Qfrn-5-Qbivtsvo Lcsh-9-Zphhifti Gamma Globulins Abnorm Protein Band 1 U Abnormal Prot Band 2 U Abnormal Prot Band 3 Pro Electrophoresis Int Hep Bs Antigen Hep Bs Antibody Hep B Core Total Ab Hepatitis C Antibody [facility] Test Reference 09/24/20 09/25/20 09/25/20 20:07 04:22 04:32 WBC 7.2 RBC 3.37 L Hgb 8.9 L Hct 29.1 L MCV 86.4 MCH 26.4 L MCHC 30.6 RDW 15.6 H Plt Count 428 H MPV 11.0 H Neut % (Auto) 51.4 Lymph % (Auto) 23.5 Bryan % (Auto) 16.2 Eos % (Auto) 7.1 Baso % (Auto) 1.5 Neut # (Auto) 3.69 Lymph # (Auto) 1.7 Bryan # (Auto) 1.2 H Eos # (Auto) 0.5 Baso # (Auto) 0.1 Nucleated RBC % (auto) 0 Nucleated RBCs # 0.0 Sodium Potassium Chloride Carbon Dioxide Anion Gap BUN Creatinine GFR Calculation Glucose POC Glucose 169 H Calculated Osmolality Calcium Albumin Pmqdg-0-Sgdmsrbar Imusq-7-Ztrykeqzz Ivbb-9-Okxezuzz Zezl-1-Ylcnfmni Gamma Globulins Abnorm Protein Band 1 U Abnormal Prot Band 2 U Abnormal Prot Band 3 Pro Electrophoresis Int Hep Bs Antigen Non-reactive Hep Bs Antibody < 3.5 L Hep B Core Total Ab Non-reactive Hepatitis C Antibody Non-reactive [facility] Test Reference 09/25/20 09/25/20 09/25/20 04:32 07:10 11:20 WBC RBC Hgb Hct MCV MCH MCHC RDW Plt Count MPV Neut % (Auto) Lymph % (Auto) Bryan % (Auto) Eos % (Auto) Baso % (Auto) Neut # (Auto) Lymph # (Auto) Bryan # (Auto) Eos # (Auto) Baso # (Auto) Nucleated RBC % (auto) Nucleated RBCs # Sodium 138 Potassium 4.3 Chloride 102 Carbon Dioxide 23 Anion Gap 17.3 BUN 91 H* Creatinine 4.0 H GFR Calculation Not Reportable Glucose 103 POC Glucose 97 96 Calculated Osmolality 314 H Calcium 8.5 Albumin Wolrt-8-Gqhmcanqu Ceeoo-3-Bhrgxsbkj Kwen-3-Nuxnrozu Pqyn-4-Umcurwpt Gamma Globulins Abnorm Protein Band 1 U Abnormal Prot Band 2 U Abnormal Prot Band 3 Pro Electrophoresis Int Hep Bs Antigen Hep Bs Antibody Hep B Core Total Ab Hepatitis C Antibody Misc Test Reference Micro: Microbiology 09/20/20 15:45 Gram Stain - Final Pleural Fluid Body Fluid Culture - Final Cardiac Studies: Echocardiogram 09/23/20
--- NOTE | 2020-09-25 13:00 | PM.CONSULT ---
Providers/Reason For Consult Consulting Physican/Specialty*: Taiwo Savage MD Reason for Consult*: ESRD Attending Physician: Taiwo Savage MD Primary Care Provider: Osito Owens MD History of Present Illness History of Present Illness Iris Rockwell is a 74 year old female who was admitted to the hospital on 09/15/2020 with worsening dyspnea and lower extremity edema. Patient has history of cardiomyopathy and chronic kidney disease. Over the course of the hospital stay she developed acute on chronic renal failure and now requires dialysis. Patient denies history of clavicle fracture or central line placement in the past. Review of Systems General: Reports: 10 or more systems reviewed and unremarkable except in HPI and below Meds/Allergies Home Medications and Allergies Home Medications Medication Instructions Recorded Confirmed Last Taken Type nitroglycerin 0.4 mg sublingual 0.4 mg SUBLINGUAL Q5M PRN 07/08/19 09/15/20 Unknown History tablet Levemir FlexTouch U-100 Insuln 25 unit SUBCUT BEDTIME@2100 01/04/20 09/15/20 09/14/20 History insulin lispro [Humalog KwikPen 10 unit SUBCUT TID 30 Days #15 ml 01/07/20 09/15/20 05/03/20 Rx Insulin] sertraline 50 mg tablet 50 mg PO Q24H 30 Days #30 tab 07/06/20 09/15/20 09/14/20 Rx ondansetron HCl 4 mg tablet 4 mg PO Q8H PRN #30 tab 07/07/20 09/15/20 Unknown Rx carvedilol 25 mg PO BID@09/15/20 09/15/20 09/14/20 History furosemide [Lasix] 40 mg PO DAILY@09/15/20 09/15/20 09/14/20 History spironolactone 25 mg PO DAILY@09/15/20 09/15/20 09/14/20 History Allergies Allergy/AdvReac Type Severity Reaction Status Date / Time morphine Allergy unknown Verified 09/02/20 11:24 zolpidem Allergy na Verified 09/02/20 11:24 Current Medications Current Medications Generic Name Dose Route Start Last Admin Trade Name Freq PRN Reason Stop Dose Admin Acetaminophen 650 mg 09/18/20 21:19 09/24/20 10:40 Acetaminophen 325 Mg Tablet PO 650 mg BEDTIME PRN Administration MILD PAIN Amlodipine Besylate 10 mg 09/18/20 09:00 09/25/20 08:04 Amlodipine 10 Mg Tablet PO 10 mg DAILY JT Administration Aspirin 81 mg 09/16/20 16:05 09/25/20 08:01 Aspirin 81 Mg Ec Tablet PO Not Given DAILY JT Atorvastatin Calcium 40 mg 09/17/20 21:00 09/24/20 20:41 Atorvastatin 40 Mg Tablet PO 40 mg BEDTIME JT Administration Diphenhydramine HCl 25 mg 09/18/20 21:17 09/24/20 20:41 Diphenhydramine 25 Mg Capsule PO 25 mg BEDTIME PRN Administration INSOMNIA Enoxaparin Sodium 30 mg 09/16/20 18:00 09/24/20 18:41 Enoxaparin 30 Mg/0.3 Ml Syringe SUBCUT 30 mg Q24H JT Administration Furosemide 80 mg 09/24/20 16:00 09/25/20 07:59 Furosemide 40 Mg Tablet PO 80 mg BID@08,16 JT Administration Iron Sucrose 200 mg/ Sodium 110 mls @ 220 mls/hr 09/24/20 16:00 09/24/20 17:45 Chloride IV 09/28/20 16:29 Infused Q24H [facility] Infusion Insulin Aspart 0 unit 09/16/20 18:00 09/25/20 11:39 Insulin Aspart 100 Unit/1 Ml SUBCUT Not Given WM&BEDTIME [facility] Protocol Insulin Detemir 25 unit 09/15/20 21:00 09/16/20 20:56 Insulin Detemir 100 Units/1 Ml SUBCUT 25 unit BEDTIME@2100 [facility] Administration Isosorbide Mononitrate 15 mg 09/21/20 15:00 09/25/20 08:04 Isosorbide Mononitrate Er 30 Mg Tablet PO 15 mg DAILY [facility] Administration Lactulose 20 gm 09/21/20 12:30 09/25/20 11:39 Lactulose Oral Liq 20 Gm/30 Ml Udc PO Not Given Q6H [facility] Nystatin 1 applic 09/20/20 18:00 09/25/20 08:06 Nystatin Powder 15 Gm Btl TOPICAL Not Given BID [facility] Polyethylene Glycol 17 gm 09/20/20 13:53 09/25/20 08:01 Polyethylene Glycol 3350 Pkt 17 Gm PO Not Given DAILY [facility] Senna/Docusate Sodium 1 tab 09/20/20 13:53 04/02/21 08:01 Sennosides-Docusate Tablet PO Not Given DAILY JT Sertraline HCl 50 mg 09/15/20 19:14 09/24/20 18:40 Sertraline 50 Mg Tablet PO 50 mg Q24H JT Administration Tramadol HCl 50 mg 09/24/20 19:04 09/25/20 08:00 Tramadol 50 Mg Tablet PO 50 mg Q8H PRN Administration MODERATE PAIN PFSH Acute PFSH: Medical History Acute exacerbation of CHF (congestive heart failure) Chronic kidney disease, stage 3 -Nephrology f/u as outpatient Congestive heart failure Depression 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; s/p toe amputations due to diabetic foot infections Diabetes Diabetic neuropathy Diastolic CHF -Echo: EF=60%, G1DD, no RWMA, mild pulmonary HTN, mild , mild TR, trace MR GERD (gastroesophageal reflux disease) -on PPI and carafate Hypercholesteremia -on statin Hypertension Hypertension ANA (obstructive sleep apnea) does not wear cpap by choice Takotsubo cardiomyopathy -had extensive workup done in [facility] in [place] in 06/2019; records reviewed -Echo with EF=43%, LVH, noted distal septal, apical and anterolateral hypokinesia/apical ballooning consistent with Takotsubo cardiomyopathy; mild MR. No mention of stress testing or cardiac cath. Records in chart -noted elevated troponins with no significant delta; unlikely to be acute process -telemetry monitoring -Echo: EF=60%, G1DD, no RWMA, mild pulmonary HTN, mild , mild TR, trace MR Transient cerebral ischemia Venous insufficiency (chronic) (peripheral) Surgical History 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 History of appendectomy History of bladder suspension procedure History of cataract surgery History of cholecystectomy History of drainage of abscess left vulvar/perineal area History of hernia repair History of surgery on arm left arm, due to extravasation History of total hysterectomy Family History Father CAD (coronary artery disease) by report, she never knew him Social History Smoking and tobacco status: never smoked Alcohol intake: never Caregiver/support person: No Household members: none Marital status: / Vitals/I&O/Wt Last Vital Signs Temp 97.9 F 09/25/20 11:18 Pulse 61 09/25/20 11:18 Resp 18 09/25/20 11:18 BP 138/62 09/25/20 11:18 Pulse Ox 94 09/25/20 11:18 09/24/20 09/25/20 09/25/20 22:59 06:59 14:59 Intake Total 590 / 1190 Output Total 1050 / 1050 Balance 590 / 140 -1050 / 140 Weight last 48 hrs Weight 238 lb Weight 241 lb Physical Exam Narrative: EXAM NARRATIVE: HEENT: Normocephalic Eye: Sclera /conjunctiva normal Respiratory and chest: Bilateral clear breath sounds on auscultation Cardiovascular: Normal S1 and S2 heart sounds Abdomen: Soft to palpation Neurological: Oriented to place person and time Skin: Intact, no lesions appreciated on gross exam Urinary Catheter Management^: Jesus: Cath Placed During This Visit: yes Reason for Continuing Indwelling Catheter: Accurate Measurement of Urinary Output in Critically Ill Patients Urinary Catheter Date of Insertion: 09/15/20 Urinary Catheter Time of Insertion: 14:26 Data Micro: Micro: Microbiology 09/20/20 15:45 Gram Stain - Final Pleural Fluid Body Fluid Culture - Final A&P Assessment and plan (1) Acute kidney injury superimposed on CKD: 74-year-old female with an acute on chronic kidney disease who now requires long-term dialysis. Plan for tunneled hemodialysis catheter placement under MAC Procedure, risks, benefits and alternatives have been discussed with the patient who wishes to proceed with surgery. Status: Acute Coding Level of Care Code Acute [employer] Operator for [facility] Fwd Diagnoses Acute kidney injury superimposed on CKD N17.9; N18.9
--- NOTE | 2020-09-25 13:08 | PC.NURSE ---
Patient to OR at this time. A&Ox4, VSS.
--- NOTE | 2020-09-25 14:03 | SC_ITS ---
WS: [id number] C-arm fluoroscopy for dialysis catheter placement, 09/25/2020 Clinical Data: intra-op OR room 6 Comparison: Portable chest, 09/21/2020 Findings: A dialysis catheter has been inserted into the right internal jugular vein. It ends in the superior v aung cava. SC/C-arm FL for CVA [id number] Impression: Insertion of dialysis catheter.
--- NOTE | 2020-09-25 14:14 | W.PM.OPSFHP ---
Same Day Surgery H&P Indication for Procedure/HPI DATE OF PROCEDURE: September 25, 2020 PREOP DIAGNOSIS: ESRD PLANNED PROCEDRUE: Operation Date: 09/25/20 13:10 Proposed Procedures p Dialysis Catheter Insertion(Not Applicable) - Walker De La Vega MD Medications/Allergies* Home Medications Medication Instructions Recorded Confirmed Type nitroglycerin 0.4 mg sublingual 0.4 mg SUBLINGUAL Q5M PRN 07/08/19 09/15/20 History tablet Levemir FlexTouch U-100 Insuln 25 unit SUBCUT BEDTIME@209901/04/20 09/15/20 History carvedilol 25 mg PO BID@09/15/20 09/15/20 History furosemide [Lasix] 40 mg PO DAILY@09/15/20 09/15/20 History spironolactone 25 mg PO DAILY@09/15/20 09/15/20 History Allergies/Adverse Reactions Allergy/AdvReac Type Severity Reaction Status Date / Time morphine Allergy unknown Verified 09/02/20 11:24 zolpidem Allergy na Verified 09/02/20 11:24 Current Medications: Generic Name Dose Route Start Last Admin Trade Name Freq PRN Reason Stop Dose Admin Acetaminophen 650 mg 09/18/20 21:19 09/24/20 10:40 Acetaminophen 325 Mg Tablet PO 650 mg BEDTIME PRN Administration MILD PAIN Amlodipine Besylate 10 mg 09/18/20 09:00 09/25/20 08:04 Amlodipine 10 Mg Tablet PO 10 mg DAILY JT Administration Aspirin 81 mg 09/16/20 16:05 09/25/20 08:01 Aspirin 81 Mg Ec Tablet PO Not Given DAILY JT Atorvastatin Calcium 40 mg 09/17/20 21:00 09/24/20 20:41 Atorvastatin 40 Mg Tablet PO 40 mg BEDTIME JT Administration Diphenhydramine HCl 25 mg 09/18/20 21:17 09/24/20 20:41 Diphenhydramine 25 Mg Capsule PO 25 mg BEDTIME PRN Administration INSOMNIA Enoxaparin Sodium 30 mg 09/16/20 18:00 09/24/20 18:41 Enoxaparin 30 Mg/0.3 Ml Syringe SUBCUT 30 mg Q24H JT Administration Furosemide 80 mg 09/24/20 16:00 09/25/20 07:59 Furosemide 40 Mg Tablet PO 80 mg BID@08,16 JT Administration Iron Sucrose 200 mg/ Sodium 110 mls @ 220 mls/hr 09/24/20 16:00 09/24/20 17:45 Chloride IV 09/28/20 16:29 Infused Q24H [facility] Infusion Insulin Aspart 0 unit 09/16/20 18:00 09/25/20 11:39 Insulin Aspart 100 Unit/1 Ml SUBCUT Not Given WM&BEDTIME [facility] Protocol Insulin Detemir 25 unit 09/15/20 21:00 09/16/20 20:56 Insulin Detemir 100 Units/1 Ml SUBCUT 25 unit BEDTIME@2100 JT Administration Isosorbide Mononitrate 15 mg 09/21/20 15:00 09/25/20 08:04 Isosorbide Mononitrate Er 30 Mg Tablet PO 15 mg DAILY [facility] Administration Lactulose 20 gm 09/21/20 12:30 09/25/20 11:39 Lactulose Oral Liq 20 Gm/30 Ml Udc PO Not Given Q6H [facility] Nystatin 1 applic 09/20/20 18:00 09/25/20 08:06 Nystatin Powder 15 Gm Btl TOPICAL Not Given BID [facility] Polyethylene Glycol 17 gm 09/20/20 13:53 09/25/20 08:01 Polyethylene Glycol 3350 Pkt 17 Gm PO Not Given DAILY [facility] Senna/Docusate Sodium 1 tab 09/20/20 13:53 09/25/20 08:01 Sennosides-Docusate Tablet PO Not Given DAILY [facility] Sertraline HCl 50 mg 09/15/20 19:14 09/24/20 18:40 Sertraline 50 Mg Tablet PO 50 mg Q24H JT Administration Tramadol HCl 50 mg 09/24/20 19:04 09/25/20 08:00 Tramadol 50 Mg Tablet PO 50 mg Q8H PRN Administration MODERATE PAIN Pertinent History/Comorbid Conditions* Medical History (Updated 09/19/20 @ 15:29 by Kim Granados MD) Acute exacerbation of CHF (congestive heart failure) Chronic kidney disease, stage 3 -Nephrology f/u as outpatient Congestive heart failure Depression 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; s/p toe amputations due to diabetic foot infections Diabetes Diabetic neuropathy Diastolic CHF -Echo: EF=60%, G1DD, no RWMA, mild pulmonary HTN, mild , mild TR, trace MR GERD (gastroesophageal reflux disease) -on PPI and carafate Hypercholesteremia -on statin Hypertension Hypertension ANA (obstructive sleep apnea) does not wear cpap by choice Takotsubo cardiomyopathy -had extensive workup done in [facility] in [place] in 06/2019; records reviewed -Echo with EF=43%, LVH, noted distal septal, apical and anterolateral hypokinesia/apical ballooning consistent with Takotsubo cardiomyopathy; mild MR. No mention of stress testing or cardiac cath. Records in chart -noted elevated troponins with no significant delta; unlikely to be acute process -telemetry monitoring -Echo: EF=60%, G1DD, no RWMA, mild pulmonary HTN, mild , mild TR, trace MR Transient cerebral ischemia Venous insufficiency (chronic) (peripheral) Surgical History (Updated 01/04/20 @ 22:14 by Irina Moss MD) 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 History of appendectomy History of bladder suspension procedure History of cataract surgery History of cholecystectomy History of drainage of abscess left vulvar/perineal area History of hernia repair History of surgery on arm left arm, due to extravasation History of total hysterectomy Family History (Updated 01/04/20 @ 22:19 by Irina Moss MD) CAD (coronary artery disease) Father by report, she never knew him Social History Smoking and tobacco status: never smoked Alcohol intake: never Caregiver/support person: No Household members: none Marital status: / Coding Level of Care Code Acute Count Team Clerk for Ivett Koo
[2020-09-25] MEDS: lidocaine 1% INJ 20 mL INJECTION (15:36)
[2020-09-25] MEDS: heparin, porcine 1,000 unit/mL INJ 10 mL 6000 UNIT XX (15:37)
--- NOTE | 2020-09-25 16:12 | P.PN_ITS ---
Subjective Subjective: Interval history: She denies any complaints. Medications: Reviewed: Yes Vitals/I&O/Wt Last Vital Signs Temp 97.9 F 09/25/20 11:18 Pulse 62 09/25/20 14:53 Resp 18 09/25/20 14:53 BP 152/61 09/25/20 14:53 Pulse Ox 96 09/25/20 14:53 09/25/20 09/25/20 09/25/20 06:59 14:59 22:59 Intake Total 50 / 50 Output Total 1050 / 1050 Balance -1050 / 140 50 / 50 Weight last 48 hrs Weight 238 lb Weight 241 lb Physical Exam Narrative: EXAM NARRATIVE: Const COMMON NORMALS: no acute distress, patient oriented x3 and alert GENERAL APPEARANCE: cooperative, comfortable, well kempt and well hydrated NUTRITIONAL APPEARANCE: obese HENMT COMMON NORMALS: normocephalic, atraumatic, hearing grossly normal bilaterally and external ears normal HEAD & SCALP: normocephalic and atraumatic FACE & SINUS: normal facial exam EXTERNAL EAR: Yes external ears normal Eye COMMON NORMALS: Equal, round and reactive pupils present, EOMs intact bilaterally, conjunctivae normal and no scleral icterus GENERAL EYE: appearance normal, both eyes and all related structures ALIGNMENT: Yes alignment normal EYELID: eyelids normal CONJUNCTIVA: Yes conjunctivae normal SCLERA: sclerae normal PUPIL: Yes Equal, round and reactive pupils present Neck/C-Spine COMMON NORMALS: supple and no JVD GENERAL: Yes normal visual inspection, Yes trachea midline and No Mass present (neck) CAROTIDS: Yes normal carotid upstroke CERVICAL SPINE: Yes cervical ROM normal Chest COMMONS NORMALS: normal inspection of the chest and normal palpation of entire chest wall CHEST: Yes Symmetrical chest wall rise and No tenderness Resp COMMON NORMALS: clear to auscultation bilaterally (decreased breath sound at bases) EFFORT & INSPECTION: Yes able to speak in complete sentences AUSCULTATION: clear to auscultation bilaterally (decreased breath sound at bases), no crackles, no rales, no rhonchi, no wheezes and vesicular breath sounds Cardio COMMON NORMALS: no JVD, regular rate, regular rhythm, S1 normal heart sound present, S2 normal heart sound present and Peripheral pulses 2+ throughout PALPATION: normal PMI RATE: regular rate RHYTHM: regular rhythm HEART SOUNDS: S1 normal heart sound present, S2 normal heart sound present, no gallops and Murmur heart sound present systolic BRUITS: no carotid bruits PERIPHERAL PULSES: Peripheral pulses 2+ throughout, radial pulses present, posterior tibial pulses present and dorsalis pedis present GI COMMON NORMALS: Soft to palpation and No hepatosplenomegaly present AUSCULTATION: Yes normoactive bowel sounds PALPATION: Yes Soft to palpation, No Tenderness to palpation present (GI), No Guarding due to palpation present (GI), No Rigid due to palpation, Extremity GENERAL: No calf tenderness, No clubbing, No cyanosis, Yes edema and No pallor Neuro COMMON NORMALS: patient oriented x3, CN's II-XII intact bilaterally, no focal motor deficits and gait normal SENSORIUM/ORIENTATION: Yes alert Psych COMMON NORMALS: Normal thought process present and speech normal APPEARANCE: Yes well kempt SPEECH: Yes normal speech MOOD & AFFECT: Yes euthymic mood THOUGHT PROCESS: Normal thought process present THOUGHT CONTENT: Yes Normal thought content present Skin HAIR: normal NAILS: normal and no clubbing Urinary Catheter Management^: Jesus: Cath Placed During This Visit: yes Reason for Continuing Indwelling Catheter: Accurate Measurement of Urinary Output in Critically Ill Patients Urinary Catheter Date of Insertion: 09/15/20 Urinary Catheter Time of Insertion: 14:26 Data : 09/25/20 04:32 09/25/20 04:32 Micro: Microbiology 09/20/20 15:45 Gram Stain - Final Pleural Fluid Body Fluid Culture - Final A&P Assessment and plan (1) Acute exacerbation of CHF (congestive heart failure): As per nephrology, the plan is to start on hemodialysis. -currently on low dose losartan and coreg. -I do not have records from [facility]. Requested again today. -Possible moderate multivessel ischemia on stress test, however breast attenuation artifact noted as well. - I spoke to the patient and her daughter and it is unclear at this time if she had LHC at [place] last year. -She will benefit from C in next few days once dialysis has been started. . - Status: Acute Qualifiers: Heart failure type: combined systolic and diastolic Qualified Code(s): I50.43 - Acute on chronic combined systolic (congestive) and diastolic (congestive) heart failure (2) Hypertension: Status: Acute Qualifiers: Hypertension type: essential hypertension Qualified Code(s): I10 - Essential (primary) hypertension (3) Diabetes: Status: Acute Qualifiers: Diabetes mellitus type: type 2 Diabetes mellitus long-term insulin use: with marine oil terminal superintendent use Diabetes mellitus complication status: with neurologic complications Diabetes mellitus complication detail: with polyneuropathy Qualified Code(s): E11.42 - Type 2 diabetes mellitus with diabetic polyneuropathy; Z79.4 - exterminator helper termite (current) use of insulin (4) CKD (chronic kidney disease): Status: Acute Qualifiers: Chronic kidney disease stage: unspecified stage Qualified Code(s): N18.9 - Chronic kidney disease, unspecified (5) Acute kidney injury: Status: Acute Additional A&P Information Anemia Thrombocytosis s/p left thoracentesis Normocytic anemia H/o gastritis Thank you for allowing me to participate in patient's care. Please feel free to call with questions or concerns. Attestations Medical Necessity Statement*: Patient needs to be in hospital for the management of heart failure, JOSE LUIS on Worsening CKD and abnormal stress test. Time Spent in Patient Care: Greater than 35 minutes (>than 50% of time spent in counselling and/or direct pt care on unit) . Coding Level of Care Code Acute Prison Classification Counselor for Ivett Fwd Diagnoses Acute exacerbation of CHF (congestive heart failure) I50.43 Heart failure type: combined systolic and diastolic Hypertension I10 Hypertension type: essential hypertension Diabetes E11.42; Z79.4 Diabetes mellitus type: type 2 Diabetes mellitus marine oil terminal superintendent insulin use: with marine oil terminal superintendent use Diabetes mellitus complication status: with neurologic complications Diabetes mellitus complication detail: with polyneuropathy CKD (chronic kidney disease) N18.9 Chronic kidney disease stage: unspecified stage Acute kidney injury N17.9
--- NOTE | 2020-09-25 16:32 | P.OP_ITS ---
Operative Report Date of procedure: September 25, 2020 Pre-op Diagnosis: ESRD Post-op diagnosis: same Procedure Done: Placement of 16 Croatian 23 cm long AshSplit tunneled hemodialysis catheter Fluoroscopic guidance and interpretation for placement of catheter Ultrasound guidance and interpretation to access the right internal jugular vein Pathology: none sent Surgeon: Walker De La Vega Anesthesia: MAC Condition: stable Disposition: PACU Procedure: The patient was taken to the operating room and placed under MAC after IV antibiotic had been administered. The chest and neck were prepped and draped in a sterile manner bilaterally. An ultrasound of the right internal jugular vein revealed patent flow, no thrombus identified. Using introducer needle the internal jugular vein on the right side was accessed and guidewire passed into the right atrium under fluoroscopy. Under fluoroscopy the location for the dialysis catheter was marked. Using 11 blade a skin incision was extended at the vein access site as well as the previously marked location on the right chest wall. The dialysis catheter was attached to the tunneler and passed subcutaneously, exiting at the venous access site. Serial dilators were passed over the guidewire under fluoroscopy. Finally the dilator peel-away sheath was passed over the guidewire and the inner dilator and guidewire was removed and the dialysis catheter was introduced into the right internal jugular vein as the peel-away sheath was removed. The tip of the catheter was noted to be in the right atrium. Both ports of the catheter porsche blood and flushed easily. The catheter was sutured to the skin using 2-0 Prolene and the venous access site was closed with 4-0 Monocryl and Dermabond. A total of 5 mL of 1:10,000 heparin was injected into the 2 ports under dialysis catheter. Fluoroscopic guidance and interpretation for passage of guidewire and dilator and placement of catheter in the right atrium.
--- NOTE | 2020-09-25 16:46 | PC.NURSE ---
Telephone order from Dr. De La Vega to hold 1800 dose of lovenox. Administer tomorrows dose as scheduled. RBTO.
--- NOTE | 2020-09-25 16:49 | PC.NURSE ---
Patient to CSU from OR at 1615. VSS, patient A&Ox4. No pain at this time. Nurse to continue to monitor.
[2020-09-25] MEDS: iron sucrose 200 MG in sodium chloride 0.9% (100 ml) 100 ML 220 MG IV (16:55)
[2020-09-25 17:03] LABS: Glucose Point of Care 203 mg/dL (70-110)
[2020-09-25] MEDS: sertraline 50 mg Tablet PO (18:17)
[2020-09-25 18:47] LABS: Hepatitis B Surface AB 10.5 (11.5-1000); Hepatitis B Surface Antigen Non-Reactive (Nonreactive); Hepatitis C Virus Antibody Non-Reactive (Nonreactive)
[2020-09-25] MEDS: diphenhydrAMINE 25 mg Capsule PO (20:27)
[2020-09-25] MEDS: carvedilol 3.125 mg Tablet PO (20:27)
[2020-09-25] MEDS: atorvastatin 40 mg Tablet PO (20:27)
[2020-09-25 20:35] LABS: Glucose Point of Care 104 mg/dL (70-110)
[2020-09-26] VITALS (11 sets, daily range): BP systolic 130–159; BP diastolic 48–77; PULSE 62–77; RESP 14–26; TEMP 36.6–36.8; O2SAT 91–96
[2020-09-26] MEDS: lactulose oral liq 20 gm/30 mL UDC PO ×2 (01:23→05:49)
[2020-09-26 05:16] LABS: Basophils # 0.1 10^3/uL (0.0-0.1); Basophils % 1.5 %; Eosinophils # 0.5 10^3/uL (0.0-0.8); Eosinophils % 6.2 %; Hematocrit 30.1 % (37.0-47.0); Hemoglobin 9.1 g/dL (11.5-15.3); Lymphocytes # 1.5 10^3/uL (0.8-4.8); Lymphocytes % 19.7 %; Mean Corpuscular HGB Conc 30.2 g/dL (30.0-36.0); Mean Corpuscular Hemoglobin 26.3 pg (28.0-34.0); Mean Platelet Volume 11.2 fL (7.4-10.4); Monocytes # 1.2 10^3/uL (0.2-0.9); Monocytes % 15.9 %; Neutrophils # 4.27 10^3/uL (1.8-7.7); Neutrophils % 56.4 %; Nucleated Red Blood Cells % 0 %; Platelet Count 458 10^3/cmm (130-400); Red Blood Count 3.46 10^6/uL (4.1-5.3); Red Cell Distribution Width 15.3 % (12.1-15.1); White Blood Count 7.6 10^3/uL (4.0-10.0)
[2020-09-26 05:54] LABS: Anion Gap 16.4 (5-19); Calcium 8.6 mg/dL (8.5-10.5); Carbon Dioxide 23 mmol/L (22-29); Chloride 104 mmol/L (98-107); Glucose 81 mg/dL (65-115); Osmolality Calculated 314 mOsm/kg (285-295); Phosphorus 6.1 mg/dL (2.5-4.5); Potassium 4.4 mmol/L (3.5-5.1); Sodium 139 mmol/L (136-145)
[2020-09-26 06:09] LABS: Blood Urea Nitrogen 88 mg/dL (8-23)
[2020-09-26 06:48] LABS: Glucose Point of Care 100 mg/dL (70-110)
--- NOTE | 2020-09-26 07:02 | ANE.PACU2 ---
Inpatient post-anesthesia follow up: Airway intact: Yes Vital signs: Temperature 98.3 F Pulse Rate [Apical ] 110 Pulse Rate 62 Respiratory Rate 14 Blood Pressure [Ri ght Arm] 199/92 Blood Pressure 130/58 Pulse Oximetry 93 Oxygen Delivery Me thod [ Nasal Cannula Current Rate & Del ghazala] Oxygen Delivery Me thod Nasal Cannula Oxygen Flow Rate [ Current Rate 2 & Delivery] Oxygen Flow Rate 3 Fraction of Inspir ed Oxygen 21 Hydration adequate: Yes Nausea and vomiting: No Pain level: 3 Mental status: Baseline
--- NOTE | 2020-09-26 07:26 | PM.PN ---
Subjective Subjective: Interval history: mild discomfort at dialysis catheter insertion site no chest pain or dyspnea very weak, unsure if she can ambulate to restroom Medications: Reviewed: Yes Vitals/I&O/Wt Last Vital Signs Temp 98.3 F 09/26/20 03:51 Pulse 62 09/26/20 06:00 Resp 14 09/26/20 03:51 BP 130/58 09/26/20 03:51 Pulse Ox 93 09/26/20 03:51 09/25/20 09/26/20 09/26/20 22:59 06:59 14:59 Intake Total 400 / 400 Output Total 0 / 0 900 / 900 Balance 400 / 400 -900 / -500 Weight last 48 hrs Weight 107.229 kg Weight 107.955 kg Physical Exam Const: COMMON NORMALS: no acute distress GENERAL APPEARANCE: cooperative Resp: COMMON NORMALS: normal respiratory effort AUSCULTATION: diminished lung sounds Cardio: COMMON NORMALS: regular rate and regular rhythm RATE: regular rate RHYTHM: regular rhythm Extremity: GENERAL: Yes edema (2-3+) Urinary Catheter Management^: Barrios: Cath Placed During This Visit: yes Reason for Continuing Indwelling Catheter: Acute Urinary Retention or Obstruction Urinary Catheter Date of Insertion: 09/15/20 Urinary Catheter Time of Insertion: 14:26 Data : 09/26/20 04:28 09/26/20 04:28 Other Labs: phos 6.1 Micro: Microbiology 09/20/20 15:45 Gram Stain - Final Pleural Fluid Body Fluid Culture - Final A&P Additional A&P Information 1. Acute kidney injury, volume overload, s/p placement tunneled HD catheter 09/25/20 2. Chronic kidney disease due to diabetic nephropathy, nephrotic range proteinuria 3. Anemia: iron + erythropoeitin deficient - iron load started 4. CHF, CAD 5. Hyperphosphatemia - begin sevelemar 800 mg TID with meals Plan: First hemodialysis session today; 2hrs, 1 L UF as BP permits. ARB resumed, amlodipine reduced. Continue oral furosemide. Referral to outpatient dialysis. Remove barrios. PT eval. Next HD MondaySeptember 28 Attestations Medical Necessity Statement*: needs PT eval, outpatient dialysis unit placement Time Spent in Patient Care: 16 - 35 minutes Coding Level of Care Code Acute Medical Billing Service for Ivett Koo
[2020-09-26] MEDS: b-complex-vitamin c Tablet 1 EACH PO (08:33)
[2020-09-26] MEDS: amlodipine 5 mg Tablet PO (08:34)
[2020-09-26] MEDS: isosorbide mononitrate ER 30 mg Tablet 15 MG PO (08:35)
[2020-09-26] MEDS: aspirin 81 mg EC Tablet PO (08:35)
[2020-09-26] MEDS: FUROsemide 40 mg Tablet 80 MG PO ×2 (08:36→16:39)
[2020-09-26] MEDS: acetaminophen 325 mg Tablet 650 MG PO (08:55)
[2020-09-26] MEDS: sevelamer 800 mg Tablet PO ×2 (08:55→11:59)
[2020-09-26] MEDS: carvedilol 3.125 mg Tablet PO ×2 (09:01→20:42)
--- NOTE | 2020-09-26 10:01 | PM.PN ---
Subjective Subjective: Interval history: Patient denies any significant neck pain, no bleeding from the surgical site Vitals/I&O/Wt Last Vital Signs Temp 98.0 F 09/26/20 07:38 Pulse 68 09/26/20 08:45 Resp 18 09/26/20 08:45 BP 159/77 09/26/20 07:38 Pulse Ox 92 09/26/20 08:45 09/25/20 09/26/20 09/26/20 22:59 06:59 14:59 Intake Total 400 / 400 120 / 120 Output Total 0 / 900 900 / 900 Balance 400 / -500 -900 / -500 120 / 120 Weight last 48 hrs Weight 236 lb 6.4 oz Weight 238 lb Physical Exam Narrative: EXAM NARRATIVE: Right neck: Dressings dry and intact, tunneled hemodialysis catheter in place Urinary Catheter Management^: Jesus: Cath Placed During This Visit: yes Reason for Continuing Indwelling Catheter: Acute Urinary Retention or Obstruction Urinary Catheter Date of Insertion: 09/15/20 Urinary Catheter Time of Insertion: 14:26 Data : 09/26/20 04:28 09/26/20 04:28 Micro: Microbiology 09/20/20 15:45 Gram Stain - Final Pleural Fluid Body Fluid Culture - Final A&P Assessment and plan (1) S/P hemodialysis catheter insertion: 74-year-old female with chronic kidney disease status post hemodialysis catheter insertion yesterday doing well Okay to use the catheter for dialysis today Status: Acute Attestations Medical Necessity Statement*: Chronic kidney disease requiring continued inpatient stay for dialysis Coding Level of Care Code Acute Patient Resource Coordinator for [facility] Fwthanh Diagnoses S/P hemodialysis catheter insertion Z99.2
--- NOTE | 2020-09-26 11:00 | PC.NURSE ---
Dr. Savage notified patient is a fib on telemetry. Rate controlled 60-70s, BP 134/48. Patient asymptomatic. No new orders received.
[2020-09-26 11:59] LABS: Glucose Point of Care 133 mg/dL (70-110)
--- NOTE | 2020-09-26 12:41 | PC.SOCIAL ---
IMM Update Pg.2 of IMM updated and reviewed with patient who verbalized understanding. Copy provided.
--- NOTE | 2020-09-26 15:03 | PC.NURSE ---
Patient to dialysis at this time. VSS, A&Ox4.
[2020-09-26] MEDS: iron sucrose 200 MG in sodium chloride 0.9% (100 ml) 100 ML 220 MG IV (16:41)
[2020-09-26 16:47] LABS: Glucose Point of Care 117 mg/dL (70-110)
--- NOTE | 2020-09-26 17:00 | PC.NURSE ---
Patient back to floor from dialysis. Dialysis not performed at this time due to machine malfunction. Nurse to continue to monitor.
--- NOTE | 2020-09-26 17:27 | PC.NURSE ---
Patient to dialysis at this time.
--- NOTE | 2020-09-26 17:35 | PM.PN ---
Subjective Subjective: Interval history: Patient was seen and evaluated this morning, right IJ tunnel catheter site is clean, though she was complaining of site being sore. Patient went into A. fib today but rate was well controlled. Due for dialysis today. Medications: Reviewed: Yes Medication Review Details: Current Medications Acetaminophen (Acetaminophen 325 Mg Tablet) 650 mg PO BEDTIME PRN PRN Reason: MILD PAIN Last Admin: 09/24/20 10:40 Dose: 650 mg Documented by: Albuterol Sulfate (Albuterol 2.5 Mg/0.5 Ml Neb) 2.5 mg INHALATION Q4H.RESPIRATORY PRN PRN Reason: SHORTNESS OF BREATH Aminophylline (Aminophylline 25 Mg/Ml Sdv 10 Ml) 25 mg IVP Q2M PRN PRN Reason: see dose instructions Stop: 09/25/20 06:26 Amlodipine Besylate (Amlodipine 10 Mg Tablet) 10 mg PO DAILY [facility] Last Admin: 09/24/20 10:39 Dose: 10 mg Documented by: Aspirin (Aspirin 81 Mg Ec Tablet) 81 mg PO DAILY [facility] Last Admin: 09/24/20 10:34 Dose: 81 mg Documented by: Atorvastatin Calcium (Atorvastatin 40 Mg Tablet) 40 mg PO BEDTIME [facility] Last Admin: 09/24/20 20:41 Dose: 40 mg Documented by: Carvedilol (Carvedilol 6.25 Mg Tablet) 6.25 mg PO BID@ [facility] Last Admin: 09/24/20 20:41 Dose: 6.25 mg Documented by: Dextrose (Dextrose 50% Syringe 50 Ml) 25 ml IVP ONCE PRN; Protocol PRN Reason: hypoglycemia protocol Dextrose (Dextrose 50% Syringe 50 Ml) 50 ml IVP PRN PRN; Protocol PRN Reason: hypoglycemia protocol Diphenhydramine HCl (Diphenhydramine 25 Mg Capsule) 25 mg PO BEDTIME PRN PRN Reason: INSOMNIA Last Admin: 09/24/20 20:41 Dose: 25 mg Documented by: Enoxaparin Sodium (Enoxaparin 30 Mg/0.3 Ml Syringe) 30 mg SUBCUT Q24H [facility] Last Admin: 09/24/20 18:41 Dose: 30 mg Documented by: Furosemide (Furosemide 40 Mg Tablet) 80 mg PO BID@08,16 [facility] Last Admin: 09/24/20 17:05 Dose: 80 mg Documented by: Glucagon (Glucagon 1 Mg/Ml Inj 1 Ml) 1 mg IM ONCE PRN; Protocol PRN Reason: Adult Acute Hypoglycemia Prot. Dextrose (D5w) 500 mls @ 100 mls/hr IV ONCE PRN; Protocol PRN Reason: Adult Acute Hypoglycemia Prot Iron Sucrose 200 mg/ Sodium (Chloride) 110 mls @ 220 mls/hr IV Q24H [facility] Stop: 09/28/20 16:29 Last Infusion: 09/24/20 17:45 Dose: Infused Documented by: Insulin Aspart (Insulin Aspart 100 Unit/1 Ml) 0 unit SUBCUT WM&BEDTIME [facility]; Protocol Last Admin: 09/24/20 20:38 Dose: 2 unit Documented by: Insulin Detemir (Insulin Detemir 100 Units/1 Ml) 25 unit SUBCUT BEDTIME@2100 [facility] Last Admin: 09/16/20 20:56 Dose: 25 unit Documented by: Isosorbide Mononitrate (Isosorbide Mononitrate Er 30 Mg Tablet) 15 mg PO DAILY [facility] Last Admin: 09/24/20 10:34 Dose: 15 mg Documented by: Lactulose (Lactulose Oral Liq 20 Gm/30 Ml Udc) 20 gm PO Q6H [facility] Last Admin: 09/24/20 18:35 Dose: Not Given Documented by: Losartan Potassium (Losartan 50 Mg Tablet) 25 mg PO DAILY [facility] Last Admin: 09/24/20 10:35 Dose: 25 mg Documented by: Nitroglycerin (Nitroglycerin 0.4 Mg Sublingual Tablet) 0.4 mg SUBLINGUAL Q5M PRN PRN Reason: CHEST PAIN Stop: 09/25/20 06:26 Nystatin (Nystatin Powder 15 Gm Btl) 1 applic TOPICAL BID [facility] Last Admin: 09/24/20 18:40 Dose: Not Given Documented by: Ondansetron HCl (Ondansetron 2 Mg/Ml Sdv 2 Ml) 4 mg IVP Q6H PRN PRN Reason: NAUSEA AND VOMITING Ondansetron HCl (Ondansetron 2 Mg/Ml Sdv 2 Ml) 4 mg IVP Q2M PRN PRN Reason: NAUSEA Polyethylene Glycol (Polyethylene Glycol 3350 Pkt 17 Gm) 17 gm PO DAILY [facility] Last Admin: 09/24/20 10:45 Dose: Not Given Documented by: Senna/Docusate Sodium (Sennosides-Docusate Tablet) 1 tab PO DAILY [facility] Last Admin: 09/24/20 11:05 Dose: Not Given Documented by: Sertraline HCl (Sertraline 50 Mg Tablet) 50 mg PO Q24H [facility] Last Admin: 09/24/20 18:40 Dose: 50 mg Documented by: Tramadol HCl (Tramadol 50 Mg Tablet) 50 mg PO Q8H PRN PRN Reason: MODERATE PAIN Last Admin: 09/24/20 20:40 Dose: 50 mg Documented by: Vitals/I&O/Wt Last Vital Signs Temp 97.8 F 09/26/20 11:10 Pulse 75 09/26/20 11:10 Resp 26 H 09/26/20 11:10 BP 134/48 09/26/20 11:10 Pulse Ox 94 09/26/20 11:10 09/26/20 09/26/20 09/26/20 06:59 14:59 22:59 Intake Total 240 / 240 350 / 590 Output Total 900 / 900 Balance -900 / -500 240 / 240 350 / 590 Weight last 48 hrs Weight 107.229 kg Weight 107.955 kg Physical Exam Const: COMMON NORMALS: patient oriented x3 HENMT: COMMON NORMALS: normocephalic and atraumatic HEAD & SCALP: normocephalic and atraumatic Resp: COMMON NORMALS: normal respiratory effort and clear to auscultation bilaterally EFFORT & INSPECTION: Yes symmetric chest movement AUSCULTATION: clear to auscultation bilaterally OTHER: Diminished Air entry LLL Cardio: COMMON NORMALS: regular rate, regular rhythm, S1 normal heart sound present, S2 normal heart sound present, No gallops present (Cardio), No murmurs present (Cardio), No rub (Cardio) and Peripheral pulses 2+ throughout RATE: regular rate RHYTHM: regular rhythm HEART SOUNDS: S1 normal heart sound present and S2 normal heart sound present PERIPHERAL PULSES: Peripheral pulses 2+ throughout GI: COMMON NORMALS: Normal to inspection, nondistended, normoactive bowel sounds present, Soft to palpation, non-tender, No hepatosplenomegaly present and no masses AUSCULTATION: Yes normoactive bowel sounds PALPATION: Yes Soft to palpation and Yes No hepatosplenomegaly present RECTAL EXAM: deferred Extremity: COMMON NORMALS: no clubbing, cyanosis or edema and no pedal edema NARRATIVE EXTREMITY EXAM: 2+ B/L L/E Pitting Edema Neuro: COMMON NORMALS: patient oriented x3 Urinary Catheter Management^: Jesus: Cath Placed During This Visit: yes Reason for Continuing Indwelling Catheter: Acute Urinary Retention or Obstruction Urinary Catheter Date of Insertion: 09/15/20 Urinary Catheter Time of Insertion: 14:26 Data : 09/26/20 04:28 09/26/20 04:28 A&P Assessment and plan (1) Acute kidney injury superimposed on CKD: JOSE LUIS ON WORSEING 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 currently diuresing well with lasix 80 mg q12 h daily tunneled catheter ( 09/25),H/D Initiation : 09/26 Appreciate nephrology recommendations Status: Acute (2) Acute exacerbation of CHF (congestive heart failure): Initially on Lasix 80 mg IV every 12 hours + metolazone 5mg po daily. Currently on alsix 80 mg po q12 h daily. Losartan was initiated but has been discontinued due to worsening SCR. Prior Echocardiogram Normal left ventricular cavity size and markedly increased wall thickness. Severe concentric left ventricular hypertrophy. Mildly decreased decreased left ventricular systolic function.. Left ventricular ejection fraction is estimated at 45-50 %. Grade II diastolic dysfunction, moderately elevated filling pressures. 2D echo with contrast: 09/23 : Mildly decreased left ventricle systolic function. Left ventricle ejection fraction is estimated at 45 to 50%.There seems to be mild hypokinesis of mid to apical anterolateral and basal inferolateral plascencia. Stress test: 09/24: Large sized perfusion abnormality of moderate severity in inferior and lateral plascencia with reversibility noted in entire anterior, mid to apical inferior and mid to apical inferolateral plascencia. This may represent ischemia in multivessel territories. However in absence of prone imaging, breast attenuation artifact cannot be completely ruled out. The left ventricular ejection fraction is mildly reduced with a value of 48%. There has been Drop in E.F as compared to prior Echo. Appreciate Cardiology Recommendations Also reports a past medical history of sleep apnea, does not use CPAP consistently at home, will order for hospital use and encourage compliance at home Oxygen requirements improving, at rest is saturating 92 to 93% on room air, saturation dropped to 89% with minimal exertion, requires 1 to 2 L supplemental O2 in this case. Status: Acute Qualifiers: Heart failure type: combined systolic and diastolic Qualified Code(s): I50.43 - Acute on chronic combined systolic (congestive) and diastolic (congestive) heart failure (3) Anemia: MORAIMA . Venofer 200 MG IV * 5 Doses Status: Acute Qualifiers: Anemia type: unspecified type Qualified Code(s): D64.9 - Anemia, unspecified (4) Hypertensive urgency: This is now resolved Continue carvedilol 12.5 p.o. twice daily, amlodipine 10 mg p.o. daily In the evening hours systolic blood pressure trending up to 1 70-1 80 systolic subsequent days. Add Imdur 15 mg p.o. daily in the afternoon and monitor for response Status: Acute (5) Elevated troponin: negative serial delta, no acute changes on EKG, less concerning for AMI reports stess test and angigram perfromed in Jun 2019 at [facility], records requested , not received yet started on asa 81mg po daily primary prevention 10 year ASCVD risk score 34%--> started atorvastatin Echocardiogram as noted above, follow-up as outpatient Status: Acute (6) Pleural effusion, left: Persistent since 04/2020, less likely consolidative process underlying CT chest without any underlying masses or consolidation, no current indication for antibiotics thoracentesis in am given ongoing pleuritic pain and persisting dyspnea in spite of improving pulm edema and CHF otherwise. S/P lt thoracentesis ( 600 cc straw colored Transduative fluid removed ) Status: Acute (7) Hypoxia: likely from CHF and pleural effusion : Improving lasix as above less likely PNA CT chest with persistent pleural effusion Status: Acute (8) Asymptomatic bacteriuria: Patient has chronic asymptomatic bacteriuria. Urine culture with Enterococcus durans noted, likely to be a colonizer. Denies dysuria, frequency. Started on amoxicillin per nephrology, completed short course of 3 days. Status: Acute Additional A&P Information + D dimer with hypoxia: Cannot obtain CTA chest to avoid contrast injury in CKD, V/q scan may not be revealing in the presence of left pleural effusion and CHF, lower extremity Doppler negative for DVT, lower suspicion for PE. Dispo: Home with HH vs SNF when ready, PT recommendatiosn appreciated DVT prophylaxis: Lovenox Full code Attestations Medical Necessity Statement*: Patient needs to be in hospital for management of worsening kidney function, need for hemodialysis, need for possible left heart cath. Coding Level of Care Code Acute Linter Operator for [facility] Fwd Diagnoses Acute kidney injury superimposed on CKD N17.9; N18.9 Acute exacerbation of CHF (congestive heart failure) I50.43 Heart failure type: combined systolic and diastolic Anemia D64.9 Anemia type: unspecified type Hypertensive urgency I16.0 Elevated troponin R77.8 Pleural effusion, left J90 Hypoxia R09.02 Asymptomatic bacteriuria R82.71
[2020-09-26 20:21] LABS: Glucose Point of Care 138 mg/dL (70-110)
[2020-09-26] MEDS: atorvastatin 40 mg Tablet PO (20:42)
[2020-09-26] MEDS: TRAMadol 50 mg Tablet PO (20:43)
[2020-09-26] MEDS: diphenhydrAMINE 25 mg Capsule PO (20:43)
[2020-09-26] MEDS: sertraline 50 mg Tablet PO (20:44)
[2020-09-27] VITALS (12 sets, daily range): BP systolic 137–168; BP diastolic 61–76; PULSE 63–76; RESP 17–21; TEMP 36.6–37; O2SAT 93–97
[2020-09-27] MEDS: lactulose oral liq 20 gm/30 mL UDC PO ×2 (00:59→05:52)
[2020-09-27 06:42] LABS: Glucose Point of Care 110 mg/dL (70-110)
--- NOTE | 2020-09-27 08:09 | PM.PN ---
Subjective Subjective: Interval [facility] still [facility], sob, weak, palps Medications: Reviewed: Yes Medication Review Details: Current Medications Acetaminophen (Acetaminophen 325 Mg Tablet) 650 mg PO BEDTIME PRN PRN Reason: MILD PAIN Last Admin: 09/24/20 10:40 Dose: 650 mg Documented by: Albuterol Sulfate (Albuterol 2.5 Mg/0.5 Ml Neb) 2.5 mg INHALATION Q4H.RESPIRATORY PRN PRN Reason: SHORTNESS OF BREATH Amlodipine Besylate (Amlodipine 5 Mg Tablet) 5 mg PO DAILY [facility] Last Admin: 09/26/20 08:34 Dose: 5 mg Documented by: Aspirin (Aspirin 81 Mg Ec Tablet) 81 mg PO DAILY [facility] Last Admin: 09/26/20 08:35 Dose: 81 mg Documented by: Atorvastatin Calcium (Atorvastatin 40 Mg Tablet) 40 mg PO BEDTIME [facility] Last Admin: 09/26/20 20:42 Dose: 40 mg Documented by: Carvedilol (Carvedilol 3.125 Mg Tablet) 3.125 mg PO BID@ [facility] Last Admin: 09/26/20 20:42 Dose: 3.125 mg Documented by: Dextrose (Dextrose 50% Syringe 50 Ml) 25 ml IVP ONCE PRN; Protocol PRN Reason: hypoglycemia protocol Dextrose (Dextrose 50% Syringe 50 Ml) 50 ml IVP PRN PRN; Protocol PRN Reason: hypoglycemia protocol Diphenhydramine HCl (Diphenhydramine 25 Mg Capsule) 25 mg PO BEDTIME PRN PRN Reason: INSOMNIA Last Admin: 09/26/20 20:43 Dose: 25 mg Documented by: Enoxaparin Sodium (Enoxaparin 30 Mg/0.3 Ml Syringe) 30 mg SUBCUT Q24H [facility] Last Admin: 09/26/20 20:35 Dose: Not Given Documented by: Furosemide (Furosemide 40 Mg Tablet) 80 mg PO BID@,16 [facility] Last Admin: 09/26/20 16:39 Dose: 80 mg Documented by: Glucagon (Glucagon 1 Mg/Ml Inj 1 Ml) 1 mg IM ONCE PRN; Protocol PRN Reason: Adult Acute Hypoglycemia Prot. Dextrose (D5w) 500 mls @ 100 mls/hr IV ONCE PRN; Protocol PRN Reason: Adult Acute Hypoglycemia Prot Iron Sucrose 200 mg/ Sodium (Chloride) 110 mls @ 220 mls/hr IV Q24H [facility] Stop: 09/28/20 16:29 Last Infusion: 09/26/20 17:26 Dose: Infused Documented by: Sodium Chloride (Sodium Chloride 0.9%) 1,000 mls @ 0 mls/hr IV .Q0M PRN PRN Reason: hypotension or symptomatic Albumin Human (Albumin) 12.5 gm in 50 mls @ 60 mls/hr IV PRN PRN PRN Reason: Hypotension and/or symptomatic Insulin Aspart (Insulin Aspart 100 Unit/1 Ml) 0 unit SUBCUT WM&BEDTIME [facility]; Protocol Last Admin: 09/26/20 20:37 Dose: Not Given Documented by: Insulin Detemir (Insulin Detemir 100 Units/1 Ml) 25 unit SUBCUT BEDTIME@2100 [facility] Last Admin: 09/16/20 20:56 Dose: 25 unit Documented by: Isosorbide Mononitrate (Isosorbide Mononitrate Er 30 Mg Tablet) 15 mg PO DAILY [facility] Last Admin: 09/26/20 08:35 Dose: 15 mg Documented by: Lactulose (Lactulose Oral Liq 20 Gm/30 Ml Udc) 20 gm PO Q6H [facility] Last Admin: 09/27/20 05:52 Dose: 20 gm Documented by: Losartan Potassium (Losartan 50 Mg Tablet) 100 mg PO DAILY [facility] Multivitamins (N-Ircacle-Bmmmuou C Tablet) 1 each PO DAILY [facility] Last Admin: 09/26/20 08:33 Dose: 1 each Documented by: Nystatin (Nystatin Powder 15 Gm Btl) 1 applic TOPICAL BID [facility] Last Admin: 09/26/20 17:42 Dose: Not Given Documented by: Ondansetron HCl (Ondansetron 2 Mg/Ml Sdv 2 Ml) 4 mg IVP Q6H PRN PRN Reason: NAUSEA AND VOMITING Polyethylene Glycol (Polyethylene Glycol 3350 Pkt 17 Gm) 17 gm PO DAILY [facility] Last Admin: 09/26/20 08:56 Dose: Not Given Documented by: Senna/Docusate Sodium (Sennosides-Docusate Tablet) 1 tab PO DAILY [facility] Last Admin: 09/26/20 08:56 Dose: Not Given Documented by: Sertraline HCl (Sertraline 50 Mg Tablet) 50 mg PO Q24H [facility] Last Admin: 09/26/20 20:44 Dose: 50 mg Documented by: Sevelamer Carbonate (Sevelamer 800 Mg Tablet) 800 mg PO TIDWM JT Last Admin: 09/26/20 17:43 Dose: Not Given Documented by: Tramadol HCl (Tramadol 50 Mg Tablet) 50 mg PO Q8H PRN PRN Reason: MODERATE PAIN Last Admin: 09/26/20 20:43 Dose: 50 mg Documented by: Vitals/I&O/Wt Last Vital Signs Temp 98.1 F 09/27/20 07:09 Pulse 64 09/27/20 07:09 Resp 20 H 09/27/20 07:09 BP 165/69 09/27/20 07:09 Pulse Ox 94 09/27/20 07:09 09/26/20 09/27/20 09/27/20 22:59 06:59 14:59 Intake Total 350 / 590 Output Total 1775 / 1775 Balance 350 / 590 -1775 / -1185 Weight last 48 hrs Weight 105.914 kg Weight 107.229 kg Physical Exam Narrative: EXAM NARRATIVE: Constitutional: Awake, NARd in bed, edema vs noted HEENT: nc/at, eomi, anicteric neck- supple, no jvp Lungs: Bilateral crackles CVS: S1 S2, no murmurs, irreg Abdo: Soft, BS ok Ext 4: + b/l edema, peripheral perfusion with no cyanosis Neurological: a,a, o x 3, from x 4, no asterexis seen w/ RN- telehealth visit and exam Skin: COMMON NORMALS: no rashes or lesions noted GENERAL SKIN EXAM: no rashes or lesions noted Urinary Catheter Management^: Jesus: Cath Placed During This Visit: yes Reason for Continuing Indwelling Catheter: Acute Urinary Retention or Obstruction Urinary Catheter Date of Insertion: 09/15/20 Urinary Catheter Time of Insertion: 14:26 Data : 09/26/20 04:28 09/26/20 04:28 A&P Assessment and plan (1) Acute kidney injury superimposed on CKD: presumed DM nephropathy and CRS -s/p HD yesterday. repeat HD in am -needs outpt HD slot Status: Acute (2) Acute exacerbation of CHF (congestive heart failure): monitor w/ HD. wean dowen lasix tomorrow Status: Acute Qualifiers: Heart failure type: combined systolic and diastolic Qualified Code(s): I50.43 - Acute on chronic combined systolic (congestive) and diastolic (congestive) heart failure (3) Hypertension: lower weight w/ HD Status: Acute Qualifiers: Hypertension type: essential hypertension Qualified Code(s): I10 - Essential (primary) hypertension (4) Anemia: iv iron and PATRIZIA w/ HD Status: Acute Qualifiers: Anemia type: unspecified type Qualified Code(s): D64.9 - Anemia, unspecified Additional A&P Information abnormal echo and stress test-- consider cardiac cath per cardiology. max out ARB as DM, CHF, ESRD, HTN Attestations Medical Necessity Statement*: CHF, eSRD Time Spent in Patient Care: 16 - 35 minutes Coding Level of Care Code Acute Legal Services Manager for [facility] Fwd Diagnoses Acute kidney injury superimposed on CKD N17.9; N18.9 Acute exacerbation of CHF (congestive heart failure) I50.43 Heart failure type: combined systolic and diastolic Hypertension I10 Hypertension type: essential hypertension Anemia D64.9 Anemia type: unspecified type
[2020-09-27] MEDS: TRAMadol 50 mg Tablet PO ×2 (08:58→21:21)
[2020-09-27] MEDS: isosorbide mononitrate ER 30 mg Tablet 15 MG PO (08:59)
[2020-09-27] MEDS: aspirin 81 mg EC Tablet PO (08:59)
[2020-09-27] MEDS: FUROsemide 40 mg Tablet 80 MG PO ×2 (08:59→15:52)
[2020-09-27] MEDS: sevelamer 800 mg Tablet PO ×3 (08:59→17:46)
[2020-09-27] MEDS: carvedilol 3.125 mg Tablet PO ×2 (09:00→21:14)
[2020-09-27] MEDS: b-complex-vitamin c Tablet 1 EACH PO (09:00)
[2020-09-27 11:40] LABS: Glucose Point of Care 152 mg/dL (70-110)
--- NOTE | 2020-09-27 12:11 | PM.PN ---
Subjective Subjective: Interval history: Patient was seen and evaluated this morning, S/P H/D Yesterday for 1 hOUR. Total urine output : 1700. Medications: Reviewed: Yes Medication Review Details: Current Medications Acetaminophen (Acetaminophen 325 Mg Tablet) 650 mg PO BEDTIME PRN PRN Reason: MILD PAIN Last Admin: 09/24/20 10:40 Dose: 650 mg Documented by: Albuterol Sulfate (Albuterol 2.5 Mg/0.5 Ml Neb) 2.5 mg INHALATION Q4H.RESPIRATORY PRN PRN Reason: SHORTNESS OF BREATH Aminophylline (Aminophylline 25 Mg/Ml Sdv 10 Ml) 25 mg IVP Q2M PRN PRN Reason: see dose instructions Stop: 09/25/20 06:26 Amlodipine Besylate (Amlodipine 10 Mg Tablet) 10 mg PO DAILY [facility] Last Admin: 09/24/20 10:39 Dose: 10 mg Documented by: Aspirin (Aspirin 81 Mg Ec Tablet) 81 mg PO DAILY [facility] Last Admin: 09/24/20 10:34 Dose: 81 mg Documented by: Atorvastatin Calcium (Atorvastatin 40 Mg Tablet) 40 mg PO BEDTIME [facility] Last Admin: 09/24/20 20:41 Dose: 40 mg Documented by: Carvedilol (Carvedilol 6.25 Mg Tablet) 6.25 mg PO BID@ [facility] Last Admin: 09/24/20 20:41 Dose: 6.25 mg Documented by: Dextrose (Dextrose 50% Syringe 50 Ml) 25 ml IVP ONCE PRN; Protocol PRN Reason: hypoglycemia protocol Dextrose (Dextrose 50% Syringe 50 Ml) 50 ml IVP PRN PRN; Protocol PRN Reason: hypoglycemia protocol Diphenhydramine HCl (Diphenhydramine 25 Mg Capsule) 25 mg PO BEDTIME PRN PRN Reason: INSOMNIA Last Admin: 09/24/20 20:41 Dose: 25 mg Documented by: Enoxaparin Sodium (Enoxaparin 30 Mg/0.3 Ml Syringe) 30 mg SUBCUT Q24H [facility] Last Admin: 09/24/20 18:41 Dose: 30 mg Documented by: Furosemide (Furosemide 40 Mg Tablet) 80 mg PO BID@08,16 [facility] Last Admin: 09/24/20 17:05 Dose: 80 mg Documented by: Glucagon (Glucagon 1 Mg/Ml Inj 1 Ml) 1 mg IM ONCE PRN; Protocol PRN Reason: Adult Acute Hypoglycemia Prot. Dextrose (D5w) 500 mls @ 100 mls/hr IV ONCE PRN; Protocol PRN Reason: Adult Acute Hypoglycemia Prot Iron Sucrose 200 mg/ Sodium (Chloride) 110 mls @ 220 mls/hr IV Q24H [facility] Stop: 09/28/20 16:29 Last Infusion: 09/24/20 17:45 Dose: Infused Documented by: Insulin Aspart (Insulin Aspart 100 Unit/1 Ml) 0 unit SUBCUT WM&BEDTIME [facility]; Protocol Last Admin: 09/24/20 20:38 Dose: 2 unit Documented by: Insulin Detemir (Insulin Detemir 100 Units/1 Ml) 25 unit SUBCUT BEDTIME@2100 [facility] Last Admin: 09/16/20 20:56 Dose: 25 unit Documented by: Isosorbide Mononitrate (Isosorbide Mononitrate Er 30 Mg Tablet) 15 mg PO DAILY [facility] Last Admin: 09/24/20 10:34 Dose: 15 mg Documented by: Lactulose (Lactulose Oral Liq 20 Gm/30 Ml Udc) 20 gm PO Q6H [facility] Last Admin: 09/24/20 18:35 Dose: Not Given Documented by: Losartan Potassium (Losartan 50 Mg Tablet) 25 mg PO DAILY [facility] Last Admin: 09/24/20 10:35 Dose: 25 mg Documented by: Nitroglycerin (Nitroglycerin 0.4 Mg Sublingual Tablet) 0.4 mg SUBLINGUAL Q5M PRN PRN Reason: CHEST PAIN Stop: 09/25/20 06:26 Nystatin (Nystatin Powder 15 Gm Btl) 1 applic TOPICAL BID [facility] Last Admin: 09/24/20 18:40 Dose: Not Given Documented by: Ondansetron HCl (Ondansetron 2 Mg/Ml Sdv 2 Ml) 4 mg IVP Q6H PRN PRN Reason: NAUSEA AND VOMITING Ondansetron HCl (Ondansetron 2 Mg/Ml Sdv 2 Ml) 4 mg IVP Q2M PRN PRN Reason: NAUSEA Polyethylene Glycol (Polyethylene Glycol 3350 Pkt 17 Gm) 17 gm PO DAILY [facility] Last Admin: 09/24/20 10:45 Dose: Not Given Documented by: Senna/Docusate Sodium (Sennosides-Docusate Tablet) 1 tab PO DAILY [facility] Last Admin: 09/24/20 11:05 Dose: Not Given Documented by: Sertraline HCl (Sertraline 50 Mg Tablet) 50 mg PO Q24H [facility] Last Admin: 09/24/20 18:40 Dose: 50 mg Documented by: Tramadol HCl (Tramadol 50 Mg Tablet) 50 mg PO Q8H PRN PRN Reason: MODERATE PAIN Last Admin: 09/24/20 20:40 Dose: 50 mg Documented by: Vitals/I&O/Wt Last Vital Signs Temp 98.6 F 09/27/20 11:01 Pulse 65 09/27/20 11:01 Resp 17 09/27/20 11:01 BP 168/76 09/27/20 11:01 Pulse Ox 94 09/27/20 11:01 09/26/20 09/27/20 09/27/20 22:59 06:59 14:59 Intake Total 350 / 590 120 / 120 Output Total 1775 / 1775 Balance 350 / 590 -1775 / -1185 120 / 120 Weight last 48 hrs Weight 105.914 kg Weight 107.229 kg Physical Exam Const: COMMON NORMALS: patient oriented x3 HENMT: COMMON NORMALS: normocephalic and atraumatic HEAD & SCALP: normocephalic and atraumatic Resp: COMMON NORMALS: normal respiratory effort and clear to auscultation bilaterally EFFORT & INSPECTION: Yes symmetric chest movement AUSCULTATION: clear to auscultation bilaterally OTHER: Diminished Air entry LLL Cardio: COMMON NORMALS: regular rate, regular rhythm, S1 normal heart sound present, S2 normal heart sound present, No gallops present (Cardio), No murmurs present (Cardio), No rub (Cardio) and Peripheral pulses 2+ throughout RATE: regular rate RHYTHM: regular rhythm HEART SOUNDS: S1 normal heart sound present and S2 normal heart sound present PERIPHERAL PULSES: Peripheral pulses 2+ throughout GI: COMMON NORMALS: Normal to inspection, nondistended, normoactive bowel sounds present, Soft to palpation, non-tender, No hepatosplenomegaly present and no masses AUSCULTATION: Yes normoactive bowel sounds PALPATION: Yes Soft to palpation and Yes No hepatosplenomegaly present RECTAL EXAM: deferred Extremity: COMMON NORMALS: no clubbing, cyanosis or edema and no pedal edema NARRATIVE EXTREMITY EXAM: 2+ B/L L/E Pitting Edema Neuro: COMMON NORMALS: patient oriented x3 Urinary Catheter Management^: Jesus: Cath Placed During This Visit: yes Reason for Continuing Indwelling Catheter: Acute Urinary Retention or Obstruction Urinary Catheter Date of Insertion: 09/15/20 Urinary Catheter Time of Insertion: 14:26 Data : 09/26/20 04:28 09/26/20 04:28 A&P Assessment and plan (1) Acute kidney injury superimposed on CKD: JOSE LUIS ON WORSEING 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 currently diuresing well with lasix 80 mg q12 h daily tunneled catheter ( 09/25),H/D Initiation : 09/26 Appreciate nephrology recommendations Status: Acute (2) Acute exacerbation of CHF (congestive heart failure): Initially on Lasix 80 mg IV every 12 hours + metolazone 5mg po daily. Currently on alsix 80 mg po q12 h daily. Losartan was initiated but has been discontinued due to worsening SCR. Prior Echocardiogram Normal left ventricular cavity size and markedly increased wall thickness. Severe concentric left ventricular hypertrophy. Mildly decreased decreased left ventricular systolic function.. Left ventricular ejection fraction is estimated at 45-50 %. Grade II diastolic dysfunction, moderately elevated filling pressures. 2D echo with contrast: 09/23 : Mildly decreased left ventricle systolic function. Left ventricle ejection fraction is estimated at 45 to 50%.There seems to be mild hypokinesis of mid to apical anterolateral and basal inferolateral plascencia. Stress test: 09/24: Large sized perfusion abnormality of moderate severity in inferior and lateral plascencia with reversibility noted in entire anterior, mid to apical inferior and mid to apical inferolateral plascencia. This may represent ischemia in multivessel territories. However in absence of prone imaging, breast attenuation artifact cannot be completely ruled out. The left ventricular ejection fraction is mildly reduced with a value of 48%. There has been Drop in E.F as compared to prior Echo. NPO after midnight for possible LHC Appreciate Cardiology Recommendations Also reports a past medical history of sleep apnea, does not use CPAP consistently at home, will order for hospital use and encourage compliance at home Oxygen requirements improving, at rest is saturating 92 to 93% on room air, saturation dropped to 89% with minimal exertion, requires 1 to 2 L supplemental O2 in this case. Status: Acute Qualifiers: Heart failure type: combined systolic and diastolic Qualified Code(s): I50.43 - Acute on chronic combined systolic (congestive) and diastolic (congestive) heart failure (3) Anemia: MORAIMA . Venofer 200 MG IV * 5 Doses Status: Acute Qualifiers: Anemia type: unspecified type Qualified Code(s): D64.9 - Anemia, unspecified (4) Hypertensive urgency: This is now resolved Continue carvedilol 12.5 p.o. twice daily, amlodipine 10 mg p.o. daily In the evening hours systolic blood pressure trending up to 1 70-1 80 systolic subsequent days. Add Imdur 15 mg p.o. daily in the afternoon and monitor for response Status: Acute (5) Elevated troponin: negative serial delta, no acute changes on EKG, less concerning for AMI reports stess test and angigram [facility] , not received yet started on asa 81mg po daily primary prevention 10 year ASCVD risk score 34%--> started atorvastatin Echocardiogram as noted above, follow-up as outpatient Status: Acute (6) Pleural effusion, left: Persistent since 04/2020, less likely consolidative process underlying CT chest without any underlying masses or consolidation, no current indication for antibiotics thoracentesis in am given ongoing pleuritic pain and persisting dyspnea in spite of improving pulm edema and CHF otherwise. S/P lt thoracentesis ( 600 cc straw colored Transduative fluid removed ) Status: Acute (7) Hypoxia: likely from CHF and pleural effusion : Improving lasix as above less likely PNA CT chest with persistent pleural effusion Status: Acute (8) Asymptomatic bacteriuria: Patient has chronic asymptomatic bacteriuria. Urine culture with Enterococcus durans noted, likely to be a colonizer. Denies dysuria, frequency. Started on amoxicillin per nephrology, completed short course of 3 days. Status: Acute Additional A&P Information + D dimer with hypoxia: Cannot obtain CTA chest to avoid contrast injury in CKD, V/q scan may not be revealing in the presence of left pleural effusion and CHF, lower extremity Doppler negative for DVT, lower suspicion for PE. Dispo: Home with HH vs SNF when ready, PT recommendatiosn appreciated DVT prophylaxis: Lovenox Full code Attestations Medical Necessity Statement*: Patient is in the hospital for Continued H/D as well as for LHC. Coding Level of Care Code Acute Practicing Urologist for [facility] Diagnoses Acute kidney injury superimposed on CKD N17.9; N18.9 Acute exacerbation of CHF (congestive heart failure) I50.43 Heart failure type: combined systolic and diastolic Anemia D64.9 Anemia type: unspecified type Hypertensive urgency I16.0 Elevated troponin R77.8 Pleural effusion, left J90 Hypoxia R09.02 Asymptomatic bacteriuria R82.71
[2020-09-27] MEDS: iron sucrose 200 MG in sodium chloride 0.9% (100 ml) 100 ML 220 MG IV (16:19)
[2020-09-27] MEDS: enoxaparin 30 mg/0.3 mL Syringe SUBCUT (17:47)
[2020-09-27] MEDS: sertraline 50 mg Tablet PO (17:47)
[2020-09-27 20:13] LABS: Glucose Point of Care 120 mg/dL (70-110)
[2020-09-27 20:13] LABS: Glucose Point of Care 192 mg/dL (70-110)
--- NOTE | 2020-09-27 20:32 | PC.NURSE ---
Contacted Dr. Neff about patient's order for normal saline infusion prior to heart cath in AM. Orders received to hold administration of fluids. Will Continue to monitor.
[2020-09-27] MEDS: diphenhydrAMINE 25 mg Capsule PO (21:13)
[2020-09-27] MEDS: losartan 50 mg Tablet 100 MG PO (21:14)
[2020-09-27] MEDS: atorvastatin 40 mg Tablet PO (21:14)
[2020-09-28] VITALS (23 sets, daily range): BP systolic 141–193; BP diastolic 62–89; PULSE 62–73; RESP 13–50; TEMP 36.6–36.9; O2SAT 90–98
[2020-09-28] MEDS: lactulose oral liq 20 gm/30 mL UDC PO ×2 (01:16→05:35)
[2020-09-28 04:04] LABS: Basophils # 0.1 10^3/uL (0.0-0.1); Basophils % 1.3 %; Eosinophils # 0.4 10^3/uL (0.0-0.8); Eosinophils % 4.1 %; Hematocrit 31.3 % (37.0-47.0); Hemoglobin 9.5 g/dL (11.5-15.3); Lymphocytes % 19.2 %; Mean Corpuscular HGB Conc 30.4 g/dL (30.0-36.0); Mean Corpuscular Hemoglobin 26.4 pg (28.0-34.0); Mean Corpuscular Volume 86.9 fL (81-99); Mean Platelet Volume 10.8 fL (7.4-10.4); Monocytes # 1.6 10^3/uL (0.2-0.9); Monocytes % 15.5 %; Neutrophils # 6.17 10^3/uL (1.8-7.7); Neutrophils % 59.4 %; Nucleated Red Blood Cells % 0.2 %; Platelet Count 457 10^3/cmm (130-400); Red Cell Distribution Width 15.3 % (12.1-15.1); White Blood Count 10.4 10^3/uL (4.0-10.0)
[2020-09-28 04:21] LABS: Alanine Aminotransferase < 5 U/L (0-33); Albumin Level 2.7 g/dL (3.5-5.2); Alkaline Phosphatase 66 IU/L (35-105); Anion Gap 12.7 (5-19); Aspartate Amino Transferase 13 U/L (0-32); Blood Urea Nitrogen 51 mg/dL (8-23); Calcium 8.6 mg/dL (8.5-10.5); Carbon Dioxide 27 mmol/L (22-29); Chloride 106 mmol/L (98-107); Ferritin 650 ng/mL (15-150); Globulin 2.6 g/dL (1.3-4.6); Glucose 91 mg/dL (65-115); Magnesium 1.9 mg/dL (1.7-2.3); Osmolality Calculated 307 mOsm/kg (285-295); Phosphorus 3.9 mg/dL (2.5-4.5); Potassium 3.7 mmol/L (3.5-5.1); Sodium 142 mmol/L (136-145); Total Bilirubin 0.2 mg/dL (0.15-1.2); Total Protein 5.3 g/dL (6.6-8.7)
[2020-09-28 06:51] LABS: Glucose Point of Care 111 mg/dL (70-110)
--- NOTE | 2020-09-28 07:00 | PM.PN ---
Subjective Subjective: Interval history: feels better. good uop. dec edema, cp, and sob Medications: Reviewed: Yes Medication Review Details: Current Medications Acetaminophen (Acetaminophen 325 Mg Tablet) 650 mg PO BEDTIME PRN PRN Reason: MILD PAIN Last Admin: 09/24/20 10:40 Dose: 650 mg Documented by: Albuterol Sulfate (Albuterol 2.5 Mg/0.5 Ml Neb) 2.5 mg INHALATION Q4H.RESPIRATORY PRN PRN Reason: SHORTNESS OF BREATH Aspirin (Aspirin 81 Mg Ec Tablet) 81 mg PO DAILY [facility] Last Admin: 09/27/20 08:59 Dose: 81 mg Documented by: Atorvastatin Calcium (Atorvastatin 40 Mg Tablet) 40 mg PO BEDTIME [facility] Last Admin: 09/27/20 21:14 Dose: 40 mg Documented by: Carvedilol (Carvedilol 3.125 Mg Tablet) 3.125 mg PO BID@ [facility] Last Admin: 09/27/20 21:14 Dose: 3.125 mg Documented by: Dextrose (Dextrose 50% Syringe 50 Ml) 25 ml IVP ONCE PRN; Protocol PRN Reason: hypoglycemia protocol Dextrose (Dextrose 50% Syringe 50 Ml) 50 ml IVP PRN PRN; Protocol PRN Reason: hypoglycemia protocol Diphenhydramine HCl (Diphenhydramine 25 Mg Capsule) 25 mg PO BEDTIME PRN PRN Reason: INSOMNIA Last Admin: 09/27/20 21:13 Dose: 25 mg Documented by: Diphenhydramine HCl (Diphenhydramine 50 Mg Capsule) 50 mg PO ONCE ONE Stop: 09/28/20 10:01 Enoxaparin Sodium (Enoxaparin 30 Mg/0.3 Ml Syringe) 30 mg SUBCUT Q24H [facility] Last Admin: 09/27/20 17:47 Dose: 30 mg Documented by: Epoetin Souleymane (Epoetin Souleymane 20,000 Unit/Ml Inj) 5,000 unit IVP NOW ONE Stop: 09/28/20 08:31 Furosemide (Furosemide 40 Mg Tablet) 80 mg PO BID@,16 [facility] Last Admin: 09/27/20 15:52 Dose: 80 mg Documented by: Glucagon (Glucagon 1 Mg/Ml Inj 1 Ml) 1 mg IM ONCE PRN; Protocol PRN Reason: Adult Acute Hypoglycemia Prot. Dextrose (D5w) 500 mls @ 100 mls/hr IV ONCE PRN; Protocol PRN Reason: Adult Acute Hypoglycemia Prot Iron Sucrose 200 mg/ Sodium (Chloride) 110 mls @ 220 mls/hr IV Q24H [facility] Stop: 09/28/20 16:29 Last Infusion: 09/27/20 17:00 Dose: Infused Documented by: Sodium Chloride (Sodium Chloride 0.9%) 1,000 mls @ 0 mls/hr IV .Q0M PRN PRN Reason: hypotension or symptomatic Albumin Human (Albumin) 12.5 gm in 50 mls @ 60 mls/hr IV PRN PRN PRN Reason: Hypotension and/or symptomatic Sodium Chloride (Sodium Chloride 0.9%) 1,000 mls @ 50 mls/hr IV .Q20H ONE Stop: 09/28/20 15:27 Last Admin: 09/27/20 20:31 Dose: Not Given Documented by: Insulin Aspart (Insulin Aspart 100 Unit/1 Ml) 0 unit SUBCUT WM&BEDTIME [facility]; Protocol Last Admin: 09/27/20 21:17 Dose: 4 unit Documented by: Insulin Detemir (Insulin Detemir 100 Units/1 Ml) 25 unit SUBCUT BEDTIME@2100 [facility] Last Admin: 09/16/20 20:56 Dose: 25 unit Documented by: Isosorbide Mononitrate (Isosorbide Mononitrate Er 30 Mg Tablet) 15 mg PO DAILY [facility] Last Admin: 09/27/20 08:59 Dose: 15 mg Documented by: Lactulose (Lactulose Oral Liq 20 Gm/30 Ml Udc) 20 gm PO Q6H [facility] Last Admin: 09/28/20 05:35 Dose: 20 gm Documented by: Losartan Potassium (Losartan 50 Mg Tablet) 100 mg PO DAILY [facility] Last Admin: 09/27/20 21:14 Dose: 100 mg Documented by: Multivitamins (A-Moxfhbo-Svglkln C Tablet) 1 each PO DAILY [facility] Last Admin: 09/27/20 09:00 Dose: 1 each Documented by: Nystatin (Nystatin Powder 15 Gm Btl) 1 applic TOPICAL BID [facility] Last Admin: 09/27/20 17:43 Dose: Not Given Documented by: Ondansetron HCl (Ondansetron 2 Mg/Ml Sdv 2 Ml) 4 mg IVP Q6H PRN PRN Reason: NAUSEA AND VOMITING Polyethylene Glycol (Polyethylene Glycol 3350 Pkt 17 Gm) 17 gm PO DAILY [facility] Last Admin: 09/27/20 09:41 Dose: Not Given Documented by: Senna/Docusate Sodium (Sennosides-Docusate Tablet) 1 tab PO DAILY [facility] Last Admin: 09/27/20 09:41 Dose: Not Given Documented by: Sertraline HCl (Sertraline 50 Mg Tablet) 50 mg PO Q24H [facility] Last Admin: 09/27/20 17:47 Dose: 50 mg Documented by: Sevelamer Carbonate (Sevelamer 800 Mg Tablet) 800 mg PO TIDWM [facility] Last Admin: 09/27/20 17:46 Dose: 800 mg Documented by: Tramadol HCl (Tramadol 50 Mg Tablet) 50 mg PO Q8H PRN PRN Reason: MODERATE PAIN Last Admin: 09/27/20 21:21 Dose: 50 mg Documented by: Vitals/I&O/Wt Last Vital Signs Temp 98.2 F 09/28/20 04:00 Pulse 63 09/28/20 06:00 Resp 50 H 09/28/20 04:00 BP 141/70 09/28/20 04:00 Pulse Ox 94 09/28/20 04:00 09/27/20 09/28/20 09/28/20 22:59 06:59 14:59 Intake Total 230 / 470 Output Total 2575 / 2575 450 / 3025 Balance -2345 / -2105 -450 / -2555 Weight last 48 hrs Weight 105.914 kg Physical Exam Narrative: EXAM NARRATIVE: Constitutional: Awake, NARD in bed, dec edema. excellent uop vs noted HEENT: nc/at, eomi, anicteric neck- supple, no jvp Lungs: Bilateral crackles CVS: S1 S2, no murmurs, irreg Abdo: Soft, BS ok Ext 4: + b/l edema, peripheral perfusion with no cyanosis Neurological: a,a, o x 3, from x 4, no asterixis seen w/ RN- telehealth visit and exam Urinary Catheter Management^: Jesus: Cath Placed During This Visit: yes Reason for Continuing Indwelling Catheter: Acute Urinary Retention or Obstruction Urinary Catheter Date of Insertion: 09/15/20 Urinary Catheter Time of Insertion: 14:26 Data : 09/28/20 03:41 09/28/20 03:41 A&P Assessment and plan (1) Acute kidney injury superimposed on CKD: presumed DM nephropathy and CRS -s/p HD Monday. -appears to be having some renal recovery. -however, as going for cardiac cath today, will repeat HD post cath -monitor for renal recovery, at same time attempt to get outpt HD slot -monitor site- send cx from site shannon damion improved Status: Acute (2) Acute exacerbation of CHF (congestive heart failure): monitor w/monitor w/ HD, lasix, cardiac cath Status: Acute Qualifiers: Heart failure type: combined systolic and diastolic Qualified Code(s): I50.43 - Acute on chronic combined systolic (congestive) and diastolic (congestive) heart failure (3) Hypertension: improving w/ current meds and HD Status: Acute Qualifiers: Hypertension type: essential hypertension Qualified Code(s): I10 - Essential (primary) hypertension (4) Anemia: iv iron and PATRIZIA w/ HD Status: Acute Qualifiers: Anemia type: unspecified type Qualified Code(s): D64.9 - Anemia, unspecified Additional A&P Information abnormal echo and stress test-- cardiac cath today per cardiology. 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
--- NOTE | 2020-09-28 07:35 | PC.NURSE ---
Patient's tunnel catheter to right upper chest region is reddened around the insertion site with a scant amount of purulent drainage. Patient c/o pruritus and discomfort to and around the catheter insertion site. Dr. Portillo notified. No orders received. Will continue to monitor.
--- NOTE | 2020-09-28 07:57 | PC.NURSE ---
pt wants bath tonight
[2020-09-28] MEDS: aspirin 81 mg EC Tablet PO (08:13)
[2020-09-28] MEDS: sevelamer 800 mg Tablet PO ×3 (08:13→17:50)
[2020-09-28] MEDS: b-complex-vitamin c Tablet 1 EACH PO (08:13)
[2020-09-28] MEDS: losartan 50 mg Tablet 100 MG PO (08:14)
[2020-09-28] MEDS: FUROsemide 40 mg Tablet 80 MG PO ×2 (08:14→17:50)
[2020-09-28] MEDS: carvedilol 3.125 mg Tablet PO ×2 (08:14→21:54)
[2020-09-28] MEDS: isosorbide mononitrate ER 30 mg Tablet 15 MG PO (08:15)
--- NOTE | 2020-09-28 08:15 | PC.NURSE ---
Wound culture Wound culture collected from right neck dialysis tunnel cath. Site cleansed with chlorhexidine and tegaderm applied, sterile technique maintained. Patient tolerated well. Nurse to continue to monitor.
--- NOTE | 2020-09-28 08:24 | W.PM.OPSUD ---
Surgery/Procedure H&P Update DATE OF PROCEDURE: September 28, 2020 DATE H&P PERFORMED: 09/23/20 H&P UPDATE INFORMATION: I have reviewed H&P completed within last 30 days, I have examined patient prior to procedure and No changes to prior documentation PREOP DIAGNOSIS: New onset of heart failure, cardiomyopathy PLANNED PROCEDURE: Operation Date: 09/25/20 13:10 Proposed Procedures p Dialysis Catheter Insertion(Not Applicable) - Walker De La Vega MD PATIENT REASSESSED PRIOR TO SEDATION, WITH NO CHANGE NOTED: Yes PHYSICAL EXAM: oriented x 3 and clear to auscultation bilaterally AIRWAY EVAL/ANESTHESIA PLAN: ASA II, Risks, benefits & alternatives of sedation and/or procedure discussed and Patient agrees to continue as planned ADDITIONAL INFORMATION: 74-year-old female past medical history significant for 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 She underwent stress test which showed multiple area of possible ischemia could be artifact in the absence of prone images. Dr. Davila who is her [employer] dynamics consultant has asked us to evaluate the patient with left heart catheterization. I by myself explained all risk benefit and alternative for the procedure to the patient I have explained her risk of stroke major minor bleed urgent emergent bypass surgery arrhythmia infection worse case scenario . She would like to proceed with it. I will also call her daughter in [place] and explained her about the procedure risk and benefit. She has given me permission to call her
--- NOTE | 2020-09-28 08:29 | PC.NURSE ---
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 A&O, VSS.
--- NOTE | 2020-09-28 09:25 | PM.PN ---
Subjective Subjective: Interval history: Currently is complaining of pain at the Rt I.J Tunneled catheter site, site also has erythema and mild tenderness. S/P Cardiac Cath. Medications: Reviewed: Yes Medication Review Details: Current Medications Acetaminophen (Acetaminophen 325 Mg Tablet) 650 mg PO BEDTIME PRN PRN Reason: MILD PAIN Last Admin: 09/24/20 10:40 Dose: 650 mg Documented by: Albuterol Sulfate (Albuterol 2.5 Mg/0.5 Ml Neb) 2.5 mg INHALATION Q4H.RESPIRATORY PRN PRN Reason: SHORTNESS OF BREATH Aspirin (Aspirin 81 Mg Ec Tablet) 81 mg PO DAILY [facility] Last Admin: 09/27/20 08:59 Dose: 81 mg Documented by: Atorvastatin Calcium (Atorvastatin 40 Mg Tablet) 40 mg PO BEDTIME JT Last Admin: 09/27/20 21:14 Dose: 40 mg Documented by: Carvedilol (Carvedilol 3.125 Mg Tablet) 3.125 mg PO BID@ [facility] Last Admin: 09/27/20 21:14 Dose: 3.125 mg Documented by: Dextrose (Dextrose 50% Syringe 50 Ml) 25 ml IVP ONCE PRN; Protocol PRN Reason: hypoglycemia protocol Dextrose (Dextrose 50% Syringe 50 Ml) 50 ml IVP PRN PRN; Protocol PRN Reason: hypoglycemia protocol Diphenhydramine HCl (Diphenhydramine 25 Mg Capsule) 25 mg PO BEDTIME PRN PRN Reason: INSOMNIA Last Admin: 09/27/20 21:13 Dose: 25 mg Documented by: Diphenhydramine HCl (Diphenhydramine 50 Mg Capsule) 50 mg PO ONCE ONE Stop: 09/28/20 10:01 Enoxaparin Sodium (Enoxaparin 30 Mg/0.3 Ml Syringe) 30 mg SUBCUT Q24H [facility] Last Admin: 09/27/20 17:47 Dose: 30 mg Documented by: Epoetin Souleymane (Epoetin Souleymane 20,000 Unit/Ml Inj) 5,000 unit IVP NOW ONE Stop: 09/28/20 08:31 Furosemide (Furosemide 40 Mg Tablet) 80 mg PO BID@08,16 [facility] Last Admin: 09/27/20 15:52 Dose: 80 mg Documented by: Glucagon (Glucagon 1 Mg/Ml Inj 1 Ml) 1 mg IM ONCE PRN; Protocol PRN Reason: Adult Acute Hypoglycemia Prot. Dextrose (D5w) 500 mls @ 100 mls/hr IV ONCE PRN; Protocol PRN Reason: Adult Acute Hypoglycemia Prot Iron Sucrose 200 mg/ Sodium (Chloride) 110 mls @ 220 mls/hr IV Q24H [facility] Stop: 09/28/20 16:29 Last Infusion: 09/27/20 17:00 Dose: Infused Documented by: Sodium Chloride (Sodium Chloride 0.9%) 1,000 mls @ 0 mls/hr IV .Q0M PRN PRN Reason: hypotension or symptomatic Albumin Human (Albumin) 12.5 gm in 50 mls @ 60 mls/hr IV PRN PRN PRN Reason: Hypotension and/or symptomatic Sodium Chloride (Sodium Chloride 0.9%) 1,000 mls @ 50 mls/hr IV .Q20H ONE Stop: 09/28/20 15:27 Last Admin: 09/27/20 20:31 Dose: Not Given Documented by: Insulin Aspart (Insulin Aspart 100 Unit/1 Ml) 0 unit SUBCUT WM&BEDTIME [facility]; Protocol Last Admin: 09/27/20 21:17 Dose: 4 unit Documented by: Insulin Detemir (Insulin Detemir 100 Units/1 Ml) 25 unit SUBCUT BEDTIME@2100 [facility] Last Admin: 09/16/20 20:56 Dose: 25 unit Documented by: Isosorbide Mononitrate (Isosorbide Mononitrate Er 30 Mg Tablet) 15 mg PO DAILY [facility] Last Admin: 09/27/20 08:59 Dose: 15 mg Documented by: Lactulose (Lactulose Oral Liq 20 Gm/30 Ml Udc) 20 gm PO Q6H [facility] Last Admin: 09/28/20 05:35 Dose: 20 gm Documented by: Losartan Potassium (Losartan 50 Mg Tablet) 100 mg PO DAILY [facility] Last Admin: 09/27/20 21:14 Dose: 100 mg Documented by: Multivitamins (X-Jfltjny-Nhwqjms C Tablet) 1 each PO DAILY [facility] Last Admin: 09/27/20 09:00 Dose: 1 each Documented by: Nystatin (Nystatin Powder 15 Gm Btl) 1 applic TOPICAL BID [facility] Last Admin: 09/27/20 17:43 Dose: Not Given Documented by: Ondansetron HCl (Ondansetron 2 Mg/Ml Sdv 2 Ml) 4 mg IVP Q6H PRN PRN Reason: NAUSEA AND VOMITING Polyethylene Glycol (Polyethylene Glycol 3350 Pkt 17 Gm) 17 gm PO DAILY [facility] Last Admin: 09/27/20 09:41 Dose: Not Given Documented by: Senna/Docusate Sodium (Sennosides-Docusate Tablet) 1 tab PO DAILY [facility] Last Admin: 09/27/20 09:41 Dose: Not Given Documented by: Sertraline HCl (Sertraline 50 Mg Tablet) 50 mg PO Q24H [facility] Last Admin: 09/27/20 17:47 Dose: 50 mg Documented by: Sevelamer Carbonate (Sevelamer 800 Mg Tablet) 800 mg PO TIDWM [facility] Last Admin: 09/27/20 17:46 Dose: 800 mg Documented by: Tramadol HCl (Tramadol 50 Mg Tablet) 50 mg PO Q8H PRN PRN Reason: MODERATE PAIN Last Admin: 09/27/20 21:21 Dose: 50 mg Documented by: Vitals/I&O/Wt Last Vital Signs Temp 98.4 F 09/28/20 07:28 Pulse 67 09/28/20 08:12 Resp 18 09/28/20 08:12 BP 145/62 09/28/20 08:14 Pulse Ox 96 09/28/20 08:12 09/27/20 09/28/20 09/28/20 22:59 06:59 14:59 Intake Total 230 / 470 Output Total 2575 / 2575 450 / 3025 Balance -2345 / -2105 -450 / -2555 Weight last 48 hrs Weight 105.233 kg Weight 105.914 kg Physical Exam Const: COMMON NORMALS: patient oriented x3 HENMT: COMMON NORMALS: normocephalic and atraumatic HEAD & SCALP: normocephalic and atraumatic Resp: COMMON NORMALS: normal respiratory effort and clear to auscultation bilaterally EFFORT & INSPECTION: Yes symmetric chest movement AUSCULTATION: clear to auscultation bilaterally OTHER: Diminished Air entry LLL Cardio: COMMON NORMALS: regular rate, regular rhythm, S1 normal heart sound present, S2 normal heart sound present, No gallops present (Cardio), No murmurs present (Cardio), No rub (Cardio) and Peripheral pulses 2+ throughout RATE: regular rate RHYTHM: regular rhythm HEART SOUNDS: S1 normal heart sound present and S2 normal heart sound present PERIPHERAL PULSES: Peripheral pulses 2+ throughout GI: COMMON NORMALS: Normal to inspection, nondistended, normoactive bowel sounds present, Soft to palpation, non-tender, No hepatosplenomegaly present and no masses AUSCULTATION: Yes normoactive bowel sounds PALPATION: Yes Soft to palpation and Yes No hepatosplenomegaly present RECTAL EXAM: deferred Extremity: COMMON NORMALS: no clubbing, cyanosis or edema and no pedal edema NARRATIVE EXTREMITY EXAM: 2+ B/L L/E Pitting Edema Neuro: COMMON NORMALS: patient oriented x3 Urinary Catheter Management^: Jesus: Cath Placed During This Visit: yes Reason for Continuing Indwelling Catheter: Acute Urinary Retention or Obstruction Urinary Catheter Date of Insertion: 09/15/20 Urinary Catheter Time of Insertion: 14:26 Data : 09/28/20 03:41 09/28/20 03:41 A&P Assessment and plan (1) CAD (coronary artery disease): CAD S/P Stent ( Mid LAD ) ( Continue Plavix 75 mg po daily Status: Acute (2) Acute kidney injury superimposed on CKD: JOSE LUIS ON WORSEING 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 currently diuresing well with lasix 80 mg q12 h daily tunneled catheter ( 09/25),H/D Initiation : 09/26 Appreciate nephrology recommendations Status: Acute (3) Acute exacerbation of CHF (congestive heart failure): Initially on Lasix 80 mg IV every 12 hours + metolazone 5mg po daily. Currently on alsix 80 mg po q12 h daily. Losartan was initiated but has been discontinued due to worsening SCR. Prior Echocardiogram Normal left ventricular cavity size and markedly increased wall thickness. Severe concentric left ventricular hypertrophy. Mildly decreased decreased left ventricular systolic function.. Left ventricular ejection fraction is estimated at 45-50 %. Grade II diastolic dysfunction, moderately elevated filling pressures. 2D echo with contrast: 09/23 : Mildly decreased left ventricle systolic function. Left ventricle ejection fraction is estimated at 45 to 50%.There seems to be mild hypokinesis of mid to apical anterolateral and basal inferolateral plascencia. Stress test: 09/24: Large sized perfusion abnormality of moderate severity in inferior and lateral plascencia with reversibility noted in entire anterior, mid to apical inferior and mid to apical inferolateral plascencia. This may represent ischemia in multivessel territories. However in absence of prone imaging, breast attenuation artifact cannot be completely ruled out. The left ventricular ejection fraction is mildly reduced with a value of 48%. There has been Drop in E.F as compared to prior Echo. Appreciate Cardiology Recommendations Also reports a past medical history of sleep apnea, does not use CPAP consistently at home, will order for hospital use and encourage compliance at home Oxygen requirements improving, at rest is saturating 92 to 93% on room air, saturation dropped to 89% with minimal exertion, requires 1 to 2 L supplemental O2 in this case. Status: Acute Qualifiers: Heart failure type: combined systolic and diastolic Qualified Code(s): I50.43 - Acute on chronic combined systolic (congestive) and diastolic (congestive) heart failure (4) Anemia: MORAIMA . Venofer 200 MG IV * 5 Doses Status: Acute Qualifiers: Anemia type: unspecified type Qualified Code(s): D64.9 - Anemia, unspecified (5) Hypertensive urgency: This is now resolved Continue carvedilol 12.5 p.o. twice daily, amlodipine 10 mg p.o. daily In the evening hours systolic blood pressure trending up to 1 70-1 80 systolic subsequent days. Add Imdur 15 mg p.o. daily in the afternoon and monitor for response Status: Acute (6) Elevated troponin: negative serial delta, no acute changes on EKG, less concerning for AMI reports stess test and angigram perfromed in Jun 2019 at [facility], records requested , not received yet started on asa 81mg po daily primary prevention 10 year ASCVD risk score 34%--> started atorvastatin Echocardiogram as noted above, follow-up as outpatient Status: Acute (7) Pleural effusion, left: Persistent since 04/2020, less likely consolidative process underlying CT chest without any underlying masses or consolidation, no current indication for antibiotics thoracentesis in am given ongoing pleuritic pain and persisting dyspnea in spite of improving pulm edema and CHF otherwise. S/P lt thoracentesis ( 600 cc straw colored Transduative fluid removed ) Status: Acute (8) Hypoxia: likely from CHF and pleural effusion : Improving lasix as above less likely PNA CT chest with persistent pleural effusion Status: Acute (9) Asymptomatic bacteriuria: Patient has chronic asymptomatic bacteriuria. Urine culture with Enterococcus durans noted, likely to be a colonizer. Denies dysuria, frequency. Started on amoxicillin per nephrology, completed short course of 3 days. Status: Acute Additional A&P Information + D dimer with hypoxia: Cannot obtain CTA chest to avoid contrast injury in CKD, V/q scan may not be revealing in the presence of left pleural effusion and CHF, lower extremity Doppler negative for DVT, lower suspicion for PE. Dispo: Home with HH vs SNF when ready, PT recommendatiosn appreciated DVT prophylaxis: Lovenox Full code Attestations Medical Necessity Statement*: Patient needs to be in hospital for the management of CAD S/P Stent as well the needs for H/D Coding Level of Care Code Acute Senior Interaction Designer for Chg Fwd Diagnoses CAD (coronary artery disease) I25.10 Acute kidney injury superimposed on CKD N17.9; N18.9 Acute exacerbation of CHF (congestive heart failure) I50.43 Heart failure type: combined systolic and diastolic Anemia D64.9 Anemia type: unspecified type Hypertensive urgency I16.0 Elevated troponin R77.8 Pleural effusion, left J90 Hypoxia R09.02 Asymptomatic bacteriuria R82.71
--- NOTE | 2020-09-28 10:30 | PC.NURSE ---
Patient arrived to CSU from prosthetic lab technician at 1020. 2 nurse verification of insertion site. TR band intact, asymptomatic. Aggrastat running, stop time 1145. Patient A&O, VSS. No complaints at this time. Nurse to continue to monitor.
[2020-09-28 11:31] LABS: Glucose Point of Care 103 mg/dL (70-110)
--- NOTE | 2020-09-28 12:56 | PC.SOCIAL ---
IMM completed with pt on 09/28/20 @ 7000. Copy of rights given to pt.
--- NOTE | 2020-09-28 13:43 | PC.NURSE ---
Patient to dialysis at 1320. 2 nurse verification of cath site. Dialysis nurse to continue monitoring.
--- NOTE | 2020-09-28 17:30 | PC.NURSE ---
Patient back to CSU from dialysis. A&O, VSS. TR band removed by dialysis nurse per protocol. Dressing in place, incision asymptomatic. Nurse to continue to monitor.
[2020-09-28 17:37] LABS: Glucose Point of Care 111 mg/dL (70-110)
[2020-09-28] MEDS: enoxaparin 30 mg/0.3 mL Syringe SUBCUT (17:51)
[2020-09-28] MEDS: vancomycin 1,000 MG in sodium chloride 0.9% 250 ML 250 MG IV (17:52)
--- NOTE | 2020-09-28 19:28 | XACV_ITS ---
Exam Room: [facility] Ht: 165 cm Wt: 107 kg BSA: 2.26 m2 Gender: Female : 1945 Exam Priority: Routine Procedure(s): Procedure Description: Diagnostic procedure Procedure Description: PCI procedure Procedure Description: Drug Eluting Coronary Stent Procedure Description: PTCA Procedure Description: Miscellaneous Procedure Description: ACT Procedure Description: Coronary Angiography Diagnostic Findings * LM has 0% stenosis. * mLAD: Moderate 70% stenosis, ISMAEL: 3 flow. * pCIRC: Mild 20% stenosis, ISMAEL: 3 flow. * 1st OM: Severe 100% stenosis, ISMAEL: 1 flow. * mRCA: Mild 20% stenosis, ISMAEL: 3 flow. * Coronary angiography shows right dominance. PCI Status: Elective PCI Indication: NSTE - ACS Interventional Findings * mLAD: 70% stenosis treated with Drug Eluting Stent. 0% residual stenosis, ISMAEL: 3 flow. Conclusions 1. IFR: After equalizing the distal and proximal pressure of IFR wire proximal to the lesion, mid LAD lesion was crossed with IFR wire. IFR was recorded as 0.84, which is significant . 2. Successful PCI to mid LAD. Lesion was prepared with 2.5 x 12 mm AB TREK balloon, followed by deployment of DINA INTEGRITY 2.75 x 15 mm stent posted at high TAMIE . Stent was then post-dilated with serial dilatation of NC DINA 3.25 x 8 at 10 TAMIE in its entire length to ensure proper approximation. Excellent angiographic result with ISMAEL-3 flow was achieved. . 3. There is moderate coronary artery disease with three vessel disease. 4. mLAD was treated with Drug Eluting Stent. 5. OM1 6. is small 7. caliber 8. and in size vessel, not amenable to intervention. Recommendations * 1-Return to inpatient for close monitoring and routine cath care 2-Risk factor modification for secondary prevention 3-Statin and aspirin 81 mg life--long, if tolerated 4-Patient was pre-loaded with 600 mg of Plavix, continue Plavix 75mg p.o. daily for at least one year. We will assess at the end of one year again to continue if further or not 5-Continue optimal medical management 6-Follow up with Dr. Neff in four weeks and your primary care in 10 days. Diagnostic RX Recommendation: PCI w/o planned CABG Pressures Phase:Rest AO : 132 / 51 ( 80 ) @ 4:11:00 AM 134 / 56 ( 82 ) @ 4:16:00 AM 137 / 53 ( 83 ) @ 4:26:00 AM 136 / 62 ( 88 ) @ 4:49:00 AM 127 / 61 ( 86 ) @ 5:00:00 AM Clinical Evaluation EBL: 5mL-10mL Procedural Details Procedure Consent Obtained. Pre-Procedure Time Out. Identified patient by full name and date of as verbalized by the patient/guarantor. Does the consent match the physician's order: Yes. Accurate & Complete Informed Consent: Yes. Inpatient/Outpatient History & Physical on Chart: Yes. If H&P is completed, is and addenduem needed: No; If yes, is the addendum complete: N/A. Visualize and Verify Site with Patient/Guarantor: N/A. Relevant Radiology Images available: N/A. Pre-op teaching completed and patient verbalized understanding. The risks, benefits, and alternatives of sedation and/or procedure were discussed by physician. The patient agrees to continue. Procedure started. [facility] Clinical Fraility Score: 4: Vulnerable. Switchboard And Control Room Operator Indications: Worsening Angina. Chest Pain Symptom Assessment: Typical Angina Symptoms. Cardiovascular Instability: No. Correct patient, site and procedure confirmed by cath team. PERRLA. Strong, equal hand recycling or rubbish collector bilaterally. Lungs clear x 5 lobes. IV Site on Arrival: 22 gauge in the right hand. IV Fluids: 0.9% NaCl at KVO. 0 mL infused prior to laborer/grade check. Pre Procedural Pulses: bilateral radial was 3+. Oxygen started at 2liters/min via nasal canula. Physician arrived. Vital chart was stopped. A 22 gauge IV was started in the left hand using aseptic technique. right radial was prepped with chloroprep then draped in the usual sterile fashion. bilateral groins was prepped with chloroprep then draped in the usual sterile fashion. Baseline sample Acquired. HR: 66 BPM. Equipment: 6F - Radial. Cardiac Cath Pack. ACIST Manifold Kit Model BT 2000. Heparinized Saline (2 units/mL), 1000 mL bag. Physician scrubbed in. Immediate Pre-Procedure Time Out. Correct Patient: Yes; Correct Procedure: Yes; Correct Site: Yes; Correct Patient Position: Yes; Correct Supplies: Yes; Dried Flammable Prep: Yes; Blood Products Available: N/A;. Lidocaine 1% infiltrated to the right radial. Arterial access obtained. A 5 luxembourgish TIG catheter in over wire. Catheter redirected to the RCA. Catheter removed over the exchange wire. A [employer] 5 Fr Zurdo Radial Catheter, 110cm was advanced over the wire and used for Left coronary angiography. Multiple views taken of right coronary artery. Multiple views taken of left coronary artery. Catheter removed over the exchange wire. Inventory is CRD 6 FR XB 3.5 GUIDE. 6 luxembourgish XB 3.5 guide catheter was inserted over the wire. FFR guidewire was advanced through the guide catheter to lesion in the mid LAD. Flint guidewire was advanced through the guide catheter to lesion in the mid LAD. Flint wire pulled back into guide catheter. IFR 0.84. Pressure wire pulled back to proximal point of lesion. Measurement is 1.00. FFR wire out. Inflation number: 1 The AB TREK 2.50X12 RX BALLOON was reinflated across the Mid LAD, to 8 TAMIE for 0:08 seconds. Balloon out. Inflation Number : 2 Annika Gomez DINA 2.75X15 DOT -Lot Number# [id number] exp date 05/17/2022 was prepped and advanced across the Mid LAD. The stent was deployed at 16 TAMIE for 0:25 seconds. Stent balloon out over wire. Inflation number : 3 A MDT NC EUPHORA RX [id number] BALLOON was prepped and advanced across the Mid LAD , then inflated to 14 TAMIE for 0:24 seconds. Inflation number: 4 The MDT NC EUPHORA RX [id number] BALLOON was reinflated across the Mid LAD, to 10 TAMIE for 0:14 seconds. Results checked. Balloon out. Wire out. Results checked. Guide catheter out. ACT drawn. Results 193 seconds. Therapeutic limits - pre-heparin administration 90-150 seconds and monitoring heparin during a vascular procedure >250 seconds. Physician scrubbed out. A TR Band was successful obtaining hemostatsis at the Right Radial artery insertion site. TR band placed. Hemostasis obtained. Post Procedure: Pulses reassessed and unchanged. PERRLA. Strong, equal hand recycling or rubbish collector bilaterally. No VTE prophylaxis required. Medication's Wasted: Lidocaine 1% = 14 mL. Medication's Wasted: Nitro = 49.8 mg. Medication's Wasted: Other = versed 1 mg. Medication's Wasted: Other = adenosine 90 mg. Total IV fluids: 50 mL. Contrast type used: Omnipaque 300 mgI/mL, 500 mL bottle. Post-op diagnosis: significant mid LAD lesion by IFR. Complications: none. PCI Indication: NSTE. Estimated blood loss: 5mL-10mL. Medication's Wasted: Heparin = 4000 units. Procedure completed. Patient transferred by wheelchair to 1st floor. Vital chart was stopped. I, the attending physician, have reviewed and verified all procedure medications. Yes, all medications given per verbal order History/Risk Factors Hypertension: Yes Dyslipidemia: Yes Peripheral Arterial Disease (PAD): No Obesity: Yes Tobacco Use: Never Report Signatures Finalized by Loulou Neff MD on 10/06/2020 07:03 PM
[2020-09-28] MEDS: TRAMadol 50 mg Tablet PO (20:20)
[2020-09-28] MEDS: atorvastatin 40 mg Tablet PO (20:21)
[2020-09-28] MEDS: sertraline 50 mg Tablet PO (20:22)
--- NOTE | 2020-09-28 20:32 | PC.NURSE ---
Asked patient when she wanted her shower. Patient stated that She was too tired and in pain. Patient also stated that she been through a lot today. And that she rather have a shower in the morning. RN notified.
--- NOTE | 2020-09-28 21:44 | PC.NURSE ---
Patient to receive 25 units insulin detemir per physicians order. Patient requested to have 10 units insulin detemir. Notified Dr. Kim. Orders received, see AUG. Will continue to monitor.
[2020-09-28 22:20] LABS: Glucose Point of Care 182 mg/dL (70-110)
[2020-09-29] VITALS (154 sets, daily range): BP systolic 112–178; BP diastolic 58–74; PULSE 62–86; RESP 8–38; TEMP 36.6–37.6; O2SAT 85–100
[2020-09-29] MEDS: lactulose oral liq 20 gm/30 mL UDC PO ×2 (02:38→06:21)
[2020-09-29 04:51] LABS: Basophils # 0.1 10^3/uL (0.0-0.1); Basophils % 1.2 %; Eosinophils # 0.5 10^3/uL (0.0-0.8); Eosinophils % 4.2 %; Hematocrit 31.9 % (37.0-47.0); Hemoglobin 9.7 g/dL (11.5-15.3); Lymphocytes # 1.6 10^3/uL (0.8-4.8); Lymphocytes % 13.6 %; Mean Corpuscular HGB Conc 30.4 g/dL (30.0-36.0); Mean Corpuscular Hemoglobin 26.4 pg (28.0-34.0); Mean Corpuscular Volume 86.7 fL (81-99); Mean Platelet Volume 10.5 fL (7.4-10.4); Monocytes # 1.6 10^3/uL (0.2-0.9); Monocytes % 14.1 %; Neutrophils # 7.55 10^3/uL (1.8-7.7); Neutrophils % 65.6 %; Nucleated Red Blood Cells % 0 %; Platelet Count 496 10^3/cmm (130-400); Red Blood Count 3.68 10^6/uL (4.1-5.3); Red Cell Distribution Width 15.3 % (12.1-15.1); White Blood Count 11.5 10^3/uL (4.0-10.0)
[2020-09-29 05:14] LABS: Alanine Aminotransferase < 5 U/L (0-33); Albumin Level 2.9 g/dL (3.5-5.2); Alkaline Phosphatase 70 IU/L (35-105); Anion Gap 11.7 (5-19); Aspartate Amino Transferase 11 U/L (0-32); Blood Urea Nitrogen 27 mg/dL (8-23); Carbon Dioxide 29 mmol/L (22-29); Chloride 99 mmol/L (98-107); Globulin 2.8 g/dL (1.3-4.6); Glucose 111 mg/dL (65-115); Magnesium 1.8 mg/dL (1.7-2.3); Osmolality Calculated 288 mOsm/kg (285-295); Phosphorus 2.5 mg/dL (2.5-4.5); Potassium 3.7 mmol/L (3.5-5.1); Sodium 136 mmol/L (136-145); Total Bilirubin 0.2 mg/dL (0.15-1.2); Total Protein 5.7 g/dL (6.6-8.7)
[2020-09-29 07:20] LABS: Glucose Point of Care 111 mg/dL (70-110)
--- NOTE | 2020-09-29 07:50 | PM.PN ---
Subjective Subjective: Interval history: states she is feeling much better- s/p hd , iv vanco, and cardiac stent yesterday. still w/ redness, eryethema, blistering by exit site. no n/v/f/c/fuller/d Medications: Reviewed: Yes Medication Review Details: Current Medications Acetaminophen (Acetaminophen 325 Mg Tablet) 650 mg PO BEDTIME PRN PRN Reason: MILD PAIN Last Admin: 09/24/20 10:40 Dose: 650 mg Documented by: Al Hydrox/Mg Hydrox/Simethicone (Lxzo-Zvq-Uxxokunsf-Alexi 30 Ml Udc) 30 ml PO Q15M PRN PRN Reason: INDIGESTION Albuterol Sulfate (Albuterol 2.5 Mg/0.5 Ml Neb) 2.5 mg INHALATION Q4H.RESPIRATORY PRN PRN Reason: SHORTNESS OF BREATH Alprazolam (Alprazolam 0.25 Mg Tablet) 0.25 mg PO TID PRN PRN Reason: ANXIETY Aspirin (Aspirin 81 Mg Ec Tablet) 81 mg PO DAILY [facility] Last Admin: 09/28/20 08:13 Dose: 81 mg Documented by: Atorvastatin Calcium (Atorvastatin 40 Mg Tablet) 40 mg PO BEDTIME [facility] Last Admin: 09/28/20 20:21 Dose: 40 mg Documented by: Atropine Sulfate (Atropine 1 Mg/Ml Sdv 1 Ml) 0.5 mg IVP PRN PRN PRN Reason: Symptomatic bradycardia Carvedilol (Carvedilol 3.125 Mg Tablet) 3.125 mg PO BID@ [facility] Last Admin: 09/28/20 21:54 Dose: 3.125 mg Documented by: Clopidogrel Bisulfate (Clopidogrel 75 Mg Tablet) 75 mg PO DAILY [facility] Dextrose (Dextrose 50% Syringe 50 Ml) 25 ml IVP ONCE PRN; Protocol PRN Reason: hypoglycemia protocol Dextrose (Dextrose 50% Syringe 50 Ml) 50 ml IVP PRN PRN; Protocol PRN Reason: hypoglycemia protocol Diphenhydramine HCl (Diphenhydramine 25 Mg Capsule) 25 mg PO BEDTIME PRN PRN Reason: INSOMNIA Last Admin: 09/27/20 21:13 Dose: 25 mg Documented by: Enoxaparin Sodium (Enoxaparin 30 Mg/0.3 Ml Syringe) 30 mg SUBCUT Q24H [facility] Last Admin: 09/28/20 17:51 Dose: 30 mg Documented by: Furosemide (Furosemide 40 Mg Tablet) 80 mg PO BID@08,16 [facility] Last Admin: 09/28/20 17:50 Dose: 80 mg Documented by: Glucagon (Glucagon 1 Mg/Ml Inj 1 Ml) 1 mg IM ONCE PRN; Protocol PRN Reason: Adult Acute Hypoglycemia Prot. Dextrose (D5w) 500 mls @ 100 mls/hr IV ONCE PRN; Protocol PRN Reason: Adult Acute Hypoglycemia Prot Sodium Chloride (Sodium Chloride 0.9%) 1,000 mls @ 0 mls/hr IV .Q0M PRN PRN Reason: hypotension or symptomatic Albumin Human (Albumin) 12.5 gm in 50 mls @ 60 mls/hr IV PRN PRN PRN Reason: Hypotension and/or symptomatic Tirofiban/Sodium Chloride (Aggrastat) 12.5 mg in 250 mls @ 19.2 mls/hr IV .Q13H2M [facility]; Protocol Last Admin: 09/29/20 02:37 Dose: Not Given Documented by: Insulin Aspart (Insulin Aspart 100 Unit/1 Ml) 0 unit SUBCUT WM&BEDTIME [facility]; Protocol Last Admin: 09/28/20 21:51 Dose: Not Given Documented by: Insulin Detemir (Insulin Detemir 100 Units/1 Ml) 25 unit SUBCUT BEDTIME@2100 [facility] Last Admin: 09/28/20 21:43 Dose: Not Given Documented by: Isosorbide Mononitrate (Isosorbide Mononitrate Er 30 Mg Tablet) 15 mg PO DAILY [facility] Last Admin: 09/28/20 08:15 Dose: 15 mg Documented by: Lactulose (Lactulose Oral Liq 20 Gm/30 Ml Udc) 20 gm PO Q6H [facility] Last Admin: 09/29/20 06:21 Dose: 20 gm Documented by: Losartan Potassium (Losartan 50 Mg Tablet) 100 mg PO DAILY [facility] Last Admin: 09/28/20 08:14 Dose: 100 mg Documented by: Magnesium Hydroxide (Magnesium Hydroxide 30 Ml Udc) 30 ml PO DAILY PRN PRN Reason: CONSTIPATION Multivitamins (Y-Qshniuf-Affvdgs C Tablet) 1 each PO DAILY [facility] Last Admin: 09/28/20 08:13 Dose: 1 each Documented by: Naloxone HCl (Naloxone 0.4 Mg/Ml Sdv) 0.1 mg IVP Q2M PRN PRN Reason: RESPIRATORY RATE < 8/MIN Nitroglycerin (Nitroglycerin 0.4 Mg Sublingual Tablet) 0.4 mg SUBLINGUAL Q5M PRN PRN Reason: CHEST PAIN Nystatin (Nystatin Powder 15 Gm Btl) 1 applic TOPICAL BID [facility] Last Admin: 09/28/20 17:56 Dose: Not Given Documented by: Ondansetron HCl (Ondansetron 2 Mg/Ml Sdv 2 Ml) 4 mg IVP Q6H PRN PRN Reason: NAUSEA AND VOMITING Polyethylene Glycol (Polyethylene Glycol 3350 Pkt 17 Gm) 17 gm PO DAILY [facility] Last Admin: 09/27/20 09:41 Dose: Not Given Documented by: Senna/Docusate Sodium (Sennosides-Docusate Tablet) 1 tab PO DAILY [facility] Last Admin: 09/27/20 09:41 Dose: Not Given Documented by: Sertraline HCl (Sertraline 50 Mg Tablet) 50 mg PO Q24H [facility] Last Admin: 09/28/20 20:22 Dose: 50 mg Documented by: Sevelamer Carbonate (Sevelamer 800 Mg Tablet) 800 mg PO TIDWM [facility] Last Admin: 09/28/20 17:50 Dose: 800 mg Documented by: Tramadol HCl (Tramadol 50 Mg Tablet) 50 mg PO Q8H PRN PRN Reason: MODERATE PAIN Last Admin: 09/28/20 20:20 Dose: 50 mg Documented by: Vitals/I&O/Wt Last Vital Signs Temp 99.0 F 09/29/20 07:45 Pulse 65 09/29/20 07:40 Resp 23 H 09/29/20 07:40 BP 146/58 09/29/20 07:40 Pulse Ox 96 09/29/20 07:40 09/28/20 09/29/20 09/29/20 22:59 06:59 14:59 Intake Total 250 / 516.775 150 / 666.775 Output Total 400 / 400 350 / 750 Balance -150 / 116.775 -200 / -83.225 Weight last 48 hrs Weight 104.326 kg Weight 105.233 kg Physical Exam Narrative: EXAM NARRATIVE: Constitutional: Awake, NARD in bed, dec edema. good uop vs noted HEENT: nc/at, eomi, anicteric neck- supple, no jvp rt rash w/ blisters by RT ACW PC Lungs: Bilateral crackles dec CVS: S1 S2, no murmurs, irreg Abdo: Soft, BS ok Extremities: + b/l edema, peripheral perfusion with no cyanosis Neurological: a,a, o x 3, from x 4, no asterixis seen w/ RN- telehealth visit and exam Urinary Catheter Management^: Jesus: Cath Placed During This Visit: yes Reason for Continuing Indwelling Catheter: Acute Urinary Retention or Obstruction Urinary Catheter Date of Insertion: 09/15/20 Urinary Catheter Time of Insertion: 14:26 Data : 09/29/20 04:28 09/29/20 04:28 Micro: Microbiology 09/28/20 14:25 Blood Culture - Preliminary Blood SPECIMEN COLLECTED 09/28/20 14:20 Blood Culture - Preliminary Blood SPECIMEN COLLECTED A&P Additional A&P Information 74 yr old female 1. JOSE LUIS on CKD- Q if ESRD or reversibility. last HD yesterday -will cont lasix -monitor cr in am for need for HD -if she is to be discharged, then i discussed her case w/ Dr. Pickering- he will monitor for possible renal recovery -phos excellent - dec renvela to 400 tid 2. Q infection vs rash at [facility] site- f/u cx. s/p vanco 1 gm. will apply local gent cream or bacitracin 3. CAD s/p LAD stent on 09/28/20. also w/ systolic CHF -it may be difficult to give the pt optimal CHF meds such as aldactone, Entresto/ or arb if we stop dialysis. Dr. Pickering and Dr. Neff can work as outpt to optimize her meds 4. anemia - iv iron and PATRIZIA w/ HD 5. HTN - controlled on current meds and cont to dec EDW on HD 6. DM control seen and examine dw/ RN- telehealth visit Attestations Medical Necessity Statement*: CAD s/p stent, JOSE LUIS- per hospitalist Time Spent in Patient Care: 16 - 35 minutes Coding Level of Care Code Acute Product Marketing Director for Ivett Koo
[2020-09-29] MEDS: b-complex-vitamin c Tablet 1 EACH PO (08:03)
[2020-09-29] MEDS: FUROsemide 40 mg Tablet 80 MG PO ×2 (08:03→15:01)
[2020-09-29] MEDS: clopidogrel 75 mg Tablet PO (08:03)
[2020-09-29] MEDS: sevelamer 800 mg Tablet PO ×2 (08:04→17:56)
[2020-09-29] MEDS: isosorbide mononitrate ER 30 mg Tablet 15 MG PO (08:04)
[2020-09-29] MEDS: aspirin 81 mg EC Tablet PO (08:04)
[2020-09-29] MEDS: carvedilol 3.125 mg Tablet PO ×2 (08:05→21:20)
[2020-09-29] MEDS: losartan 50 mg Tablet 100 MG PO (08:05)
--- NOTE | 2020-09-29 08:28 | XRR_ITS ---
PROCEDURE INFORMATION: Exam: XR Chest Exam date and time: 09/29/2020 8:30 AM Age: 74 years old Clinical indication: Shortness of breath; Prior surgery; Surgery type: Dialysis cath; Patient HX: No chest complaints per PT; Additional info: SOB TECHNIQUE: Imaging protocol: XR of the chest Views: 1 view. COMPARISON: CR XR chest 1V portable [id number] 09/21/2020 4:18 PM FINDINGS: Tubes, catheters and devices: A right internal jugular dialysis catheter is present with the tip projecting in the SVC. Lungs: The left lung base is opacified consistent with left lower lobe atelectasis and a left pleural effusion. This has worsened since the previous radiograph from 09/21/2020. Pleural spaces: Unremarkable. No pleural effusion. No pneumothorax. Heart/Mediastinum: Unremarkable. No cardiomegaly. Bones/joints: Unremarkable. XR/XR chest 1V portable [id number] IMPRESSION: The left base is opacified due to worsening left basilar atelectasis and enlarging left pleural effusion.
--- NOTE | 2020-09-29 09:00 | PC.NURSE ---
Dr. Savage notified patient did not receive last dose of venofer yesterday due to being off unit in dialysis. Pharmacy notified. Verbal order to administer dose now. Verbal order to hold gentamycin till after patient's shower. RBVO.
--- NOTE | 2020-09-29 10:33 | PM.PN ---
Subjective Subjective: Interval history: Patient underwent coronary angiogram yesterday by Dr. Neff via via right radial approach. Patient underwent Resolute DINA drug-eluting stent placement to mid LAD (2.75 x 15 mm) after IFR was found to be 0.84. Postprocedure she had hemodialysis. Medications: Reviewed: Yes Vitals/I&O/Wt Last Vital Signs Temp 99.0 F 09/29/20 07:45 Pulse 84 09/29/20 09:12 Resp 18 09/29/20 09:12 BP 146/58 09/29/20 08:05 Pulse Ox 91 09/29/20 09:12 09/28/20 09/29/20 09/29/20 22:59 06:59 14:59 Intake Total 250 / 516.775 150 / 666.775 120 / 120 Output Total 400 / 400 350 / 750 Balance -150 / 116.775 -200 / -83.225 120 / 120 Weight last 48 hrs Weight 230 lb Weight 232 lb Physical Exam Narrative: EXAM NARRATIVE: GENERAL: Obese woman lying in bed in no acute distress HEENT: Extraocular movement intact. Pupils equal round reactive to light. No pallor or icterus. NECK: central trachea, no JVD appreciated Chest: Right upper chest wall tunneled hemodialysis catheter in place; appears erythematous and swollen with somewhat purulent discharge CARDIOVASCULAR SYSTEM: S1-S2 regular. No murmur rubs or gallops. RESPIRATORY SYSTEM: Decreased breath sounds left basal lung franklin> right. no wheezes rhonchi heard. +rales left basal lung field. No use of accessory muscles. ABDOMEN: Soft, nontender and nondistended. Normal bowel sounds present. EXTREMITIES: No cyanosis or clubbing. 1+ edema bilaterally. YANNA stocking in place TANNER ROTARY DRUM CONTINUOUS PROCESS: Patient is alert oriented ?3. No focal neurological deficits. SKIN: Normal turgor and temperature. No breakdown, rash or nail changes noted. [] PSYCH: Normal insight and judgment. Urinary Catheter Management^: Jesus: Cath Placed During This Visit: yes Reason for Continuing Indwelling Catheter: Acute Urinary Retention or Obstruction Urinary Catheter Date of Insertion: 09/15/20 Urinary Catheter Time of Insertion: 14:26 Data : 09/29/20 04:28 09/29/20 04:28 Micro: Microbiology 09/28/20 08:15 Wound Culture - Preliminary Neck 09/28/20 14:25 Blood Culture - Preliminary Blood SPECIMEN COLLECTED 09/28/20 14:20 Blood Culture - Preliminary Blood SPECIMEN COLLECTED A&P Assessment and plan (1) CAD (coronary artery disease): S/p mid LAD DOT; mild disease in right coronary artery and circumflex artery. OM1 is a small artery and appears occluded proximally. Plan for medical management for that -Continue aspirin, Plavix and statin. -Low-dose Imdur 15 mg. Remains chest pain-free. No arrhythmia on telemetry. -Spoke to patient as well as her daughter Chanelle and updated them on findings of cardiac catheterization and further management plan. Status: Acute Qualifiers: Coronary Disease-Associated Artery/Lesion type: [place] artery [place] vs. transplanted heart: [place] heart Associated angina: without angina Qualified Code(s): I25.10 - Atherosclerotic heart disease of [place] coronary artery without angina pectoris (2) Acute exacerbation of CHF (congestive heart failure): -Heart failure with midrange EF (LVEF 45 to 50%) -currently on losartan and coreg. -Continue Lasix Status: Acute Qualifiers: Heart failure type: combined systolic and diastolic Qualified Code(s): I50.43 - Acute on chronic combined systolic (congestive) and diastolic (congestive) heart failure (3) Hypertension: Status: Acute Qualifiers: Hypertension type: essential hypertension Qualified Code(s): I10 - Essential (primary) hypertension (4) Diabetes: Status: Acute Qualifiers: Diabetes mellitus type: type 2 Diabetes mellitus superintendent [employer] insulin use: with senior living use Diabetes mellitus complication status: with neurologic complications Diabetes mellitus complication detail: with polyneuropathy Qualified Code(s): E11.42 - Type 2 diabetes mellitus with diabetic polyneuropathy; Z79.4 - lobsterman (current) use of insulin (5) CKD (chronic kidney disease): Status: Acute Qualifiers: Chronic kidney disease stage: unspecified stage Qualified Code(s): N18.9 - Chronic kidney disease, unspecified (6) Acute kidney injury: JOSE LUIS on CKD. -S/p tunneled dialysis catheter placement and hemodialysis -Concern for infection at site of permacath. On antibiotics per primary and nephrology teams -Nephrology on board. Status: Acute Additional A&P Information Hyperlipidemia: Calculated LDL greater than 120 with goal LDL of less than 70. Anemia: Hemoglobin stable Thrombocytosis s/p left thoracentesis Normocytic anemia H/o gastritis Thank you for allowing me to participate in patient's care. Please feel free to call with questions or concerns. Attestations Medical Necessity Statement*: As per primary team Time Spent in Patient Care: Greater than 35 minutes (>than 50% of time spent in counselling and/or direct pt care on unit). Coding Level of Care Code Acute [employer] Supervisor for Ivett Fwd Diagnoses CAD (coronary artery disease) I25.10 Coronary Disease-Associated Artery/Lesion type: [place] artery [place] vs. transplanted heart: [place] heart Associated angina: without angina Acute exacerbation of CHF (congestive heart failure) I50.43 Heart failure type: combined systolic and diastolic Hypertension I10 Hypertension type: essential hypertension Diabetes E11.42; Z79.4 Diabetes mellitus type: type 2 Diabetes mellitus superintendent [employer] insulin use: with senior living use Diabetes mellitus complication status: with neurologic complications Diabetes mellitus complication detail: with polyneuropathy CKD (chronic kidney disease) N18.9 Chronic kidney disease stage: unspecified stage Acute kidney injury N17.9
[2020-09-29 11:13] LABS: Glucose Point of Care 171 mg/dL (70-110)
--- NOTE | 2020-09-29 11:15 | P.PN_ITS ---
Subjective Subjective: Interval history: Medications: Reviewed: Yes Medication Review Details: Current Medications Acetaminophen (Acetaminophen 325 Mg Tablet) 650 mg PO BEDTIME PRN PRN Reason: MILD PAIN Last Admin: 09/24/20 10:40 Dose: 650 mg Documented by: Al Hydrox/Mg Hydrox/Simethicone (Vsjf-Pov-Ydxirgpfi-Alexi 30 Ml Udc) 30 ml PO Q15M PRN PRN Reason: INDIGESTION Albuterol Sulfate (Albuterol 2.5 Mg/0.5 Ml Neb) 2.5 mg INHALATION Q4H.RESPIRATORY PRN PRN Reason: SHORTNESS OF BREATH Alprazolam (Alprazolam 0.25 Mg Tablet) 0.25 mg PO TID PRN PRN Reason: ANXIETY Aspirin (Aspirin 81 Mg Ec Tablet) 81 mg PO DAILY [facility] Last Admin: 09/28/20 08:13 Dose: 81 mg Documented by: Atorvastatin Calcium (Atorvastatin 40 Mg Tablet) 40 mg PO BEDTIME [facility] Last Admin: 09/28/20 20:21 Dose: 40 mg Documented by: Atropine Sulfate (Atropine 1 Mg/Ml Sdv 1 Ml) 0.5 mg IVP PRN PRN PRN Reason: Symptomatic bradycardia Carvedilol (Carvedilol 3.125 Mg Tablet) 3.125 mg PO BID@ [facility] Last Admin: 09/28/20 21:54 Dose: 3.125 mg Documented by: Clopidogrel Bisulfate (Clopidogrel 75 Mg Tablet) 75 mg PO DAILY [facility] Dextrose (Dextrose 50% Syringe 50 Ml) 25 ml IVP ONCE PRN; Protocol PRN Reason: hypoglycemia protocol Dextrose (Dextrose 50% Syringe 50 Ml) 50 ml IVP PRN PRN; Protocol PRN Reason: hypoglycemia protocol Diphenhydramine HCl (Diphenhydramine 25 Mg Capsule) 25 mg PO BEDTIME PRN PRN Reason: INSOMNIA Last Admin: 09/27/20 21:13 Dose: 25 mg Documented by: Enoxaparin Sodium (Enoxaparin 30 Mg/0.3 Ml Syringe) 30 mg SUBCUT Q24H [facility] Last Admin: 09/28/20 17:51 Dose: 30 mg Documented by: Furosemide (Furosemide 40 Mg Tablet) 80 mg PO BID@08,16 [facility] Last Admin: 09/28/20 17:50 Dose: 80 mg Documented by: Glucagon (Glucagon 1 Mg/Ml Inj 1 Ml) 1 mg IM ONCE PRN; Protocol PRN Reason: Adult Acute Hypoglycemia Prot. Dextrose (D5w) 500 mls @ 100 mls/hr IV ONCE PRN; Protocol PRN Reason: Adult Acute Hypoglycemia Prot Sodium Chloride (Sodium Chloride 0.9%) 1,000 mls @ 0 mls/hr IV .Q0M PRN PRN Reason: hypotension or symptomatic Albumin Human (Albumin) 12.5 gm in 50 mls @ 60 mls/hr IV PRN PRN PRN Reason: Hypotension and/or symptomatic Tirofiban/Sodium Chloride (Aggrastat) 12.5 mg in 250 mls @ 19.2 mls/hr IV .Q13H2M [facility]; Protocol Last Admin: 09/29/20 02:37 Dose: Not Given Documented by: Insulin Aspart (Insulin Aspart 100 Unit/1 Ml) 0 unit SUBCUT WM&BEDTIME [facility]; Protocol Last Admin: 09/28/20 21:51 Dose: Not Given Documented by: Insulin Detemir (Insulin Detemir 100 Units/1 Ml) 25 unit SUBCUT BEDTIME@2100 [facility] Last Admin: 09/28/20 21:43 Dose: Not Given Documented by: Isosorbide Mononitrate (Isosorbide Mononitrate Er 30 Mg Tablet) 15 mg PO DAILY [facility] Last Admin: 09/28/20 08:15 Dose: 15 mg Documented by: Lactulose (Lactulose Oral Liq 20 Gm/30 Ml Udc) 20 gm PO Q6H [facility] Last Admin: 09/29/20 06:21 Dose: 20 gm Documented by: Losartan Potassium (Losartan 50 Mg Tablet) 100 mg PO DAILY [facility] Last Admin: 09/28/20 08:14 Dose: 100 mg Documented by: Magnesium Hydroxide (Magnesium Hydroxide 30 Ml Udc) 30 ml PO DAILY PRN PRN Reason: CONSTIPATION Multivitamins (G-Tapeods-Khhxcdd C Tablet) 1 each PO DAILY [facility] Last Admin: 09/28/20 08:13 Dose: 1 each Documented by: Naloxone HCl (Naloxone 0.4 Mg/Ml Sdv) 0.1 mg IVP Q2M PRN PRN Reason: RESPIRATORY RATE < 8/MIN Nitroglycerin (Nitroglycerin 0.4 Mg Sublingual Tablet) 0.4 mg SUBLINGUAL Q5M PRN PRN Reason: CHEST PAIN Nystatin (Nystatin Powder 15 Gm Btl) 1 applic TOPICAL BID [facility] Last Admin: 09/28/20 17:56 Dose: Not Given Documented by: Ondansetron HCl (Ondansetron 2 Mg/Ml Sdv 2 Ml) 4 mg IVP Q6H PRN PRN Reason: NAUSEA AND VOMITING Polyethylene Glycol (Polyethylene Glycol 3350 Pkt 17 Gm) 17 gm PO DAILY [facility] Last Admin: 09/27/20 09:41 Dose: Not Given Documented by: Senna/Docusate Sodium (Sennosides-Docusate Tablet) 1 tab PO DAILY [facility] Last Admin: 09/27/20 09:41 Dose: Not Given Documented by: Sertraline HCl (Sertraline 50 Mg Tablet) 50 mg PO Q24H [facility] Last Admin: 09/28/20 20:22 Dose: 50 mg Documented by: Sevelamer Carbonate (Sevelamer 800 Mg Tablet) 800 mg PO TIDWM [facility] Last Admin: 09/28/20 17:50 Dose: 800 mg Documented by: Tramadol HCl (Tramadol 50 Mg Tablet) 50 mg PO Q8H PRN PRN Reason: MODERATE PAIN Last Admin: 09/28/20 20:20 Dose: 50 mg Documented by: Vitals/I&O/Wt Last Vital Signs Temp 99.0 F 09/29/20 07:45 Pulse 84 09/29/20 09:12 Resp 18 09/29/20 09:12 BP 146/58 09/29/20 08:05 Pulse Ox 91 09/29/20 09:12 09/28/20 09/29/20 09/29/20 22:59 06:59 14:59 Intake Total 250 / 516.775 150 / 666.775 120 / 120 Output Total 400 / 400 350 / 750 Balance -150 / 116.775 -200 / -83.225 120 / 120 Weight last 48 hrs Weight 104.326 kg Weight 105.233 kg Physical Exam Const: COMMON NORMALS: patient oriented x3 HENMT: COMMON NORMALS: normocephalic and atraumatic HEAD & SCALP: normocephalic and atraumatic Resp: COMMON NORMALS: normal respiratory effort and clear to auscultation bilaterally EFFORT & INSPECTION: Yes symmetric chest movement AUSCULTATION: clear to auscultation bilaterally OTHER: Diminished Air entry LLL Cardio: COMMON NORMALS: regular rate, regular rhythm, S1 normal heart sound present, S2 normal heart sound present, No gallops present (Cardio), No murmurs present (Cardio), No rub (Cardio) and Peripheral pulses 2+ throughout RATE: regular rate RHYTHM: regular rhythm HEART SOUNDS: S1 normal heart sound present and S2 normal heart sound present PERIPHERAL PULSES: Peripheral pulses 2+ throughout GI: COMMON NORMALS: Normal to inspection, nondistended, normoactive bowel sounds present, Soft to palpation, non-tender, No hepatosplenomegaly present and no masses AUSCULTATION: Yes normoactive bowel sounds PALPATION: Yes Soft to palpation and Yes No hepatosplenomegaly present RECTAL EXAM: deferred Extremity: COMMON NORMALS: no clubbing, cyanosis or edema and no pedal edema NARRATIVE EXTREMITY EXAM: 2+ B/L L/E Pitting Edema Neuro: COMMON NORMALS: patient oriented x3 Urinary Catheter Management^: Jesus: Cath Placed During This Visit: yes Reason for Continuing Indwelling Catheter: Acute Urinary Retention or Obstruction Urinary Catheter Date of Insertion: 09/15/20 Urinary Catheter Time of Insertion: 14:26 Data : 09/29/20 04:28 09/29/20 04:28 Micro: Microbiology 09/28/20 08:15 Wound Culture - Preliminary Neck 09/28/20 14:25 Blood Culture - Preliminary Blood SPECIMEN COLLECTED 09/28/20 14:20 Blood Culture - Preliminary Blood SPECIMEN COLLECTED A&P Assessment and plan (1) CAD (coronary artery disease): CAD S/P Stent ( Mid LAD ) ( Patient underwent Resolute DINA drug-eluting stent placement to mid LAD (2.75 x 15 mm) after IFR was found to be 0.84) Mild disease in right coronary artery and circumflex artery.OM1 is a small artery and appears occluded proximally. Plan for medical management for that. Continue Plavix 75 mg po daily as well as statin. as well as IMDUR 15 mg po daily Status: Acute Qualifiers: Associated angina: without angina Coronary Disease-Associated Artery/Lesion type: elem artery [place] vs. transplanted heart: elem heart Qualified Code(s): I25.10 - Atherosclerotic heart disease of elem coronary art jennifer without angina pectoris (2) Acute kidney injury superimposed on CKD: JOSE LUIS ON WORSEING 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 currently diuresing well with lasix 80 mg q12 h daily tunneled catheter ( 09/25),H/D Initiation : 09/26. Rt I.J Catheter Site has erythema as well as blistering.Culture from catheter has been drawn and she has been given i.v vanc as well as topical,gentamicin ointment is being applied. Follow Culture. Appreciate nephrology recommendations Status: Acute (3) Acute exacerbation of CHF (congestive heart failure): Initially on Lasix 80 mg IV every 12 hours + metolazone 5mg po daily. Currently on alsix 80 mg po q12 h daily. Losartan was initiated but has been discontinued due to worsening SCR. Prior Echocardiogram Normal left ventricular cavity size and markedly increased wall thickness. Severe concentric left ventricular hypertrophy. Mildly decreased decreased left ventricular systolic function.. Left ventricular ejection fraction is estimated at 45-50 %. Grade II diastolic dysfunction, moderately elevated filling pressures. 2D echo with contrast: 09/23 : Mildly decreased left ventricle systolic function. Left ventricle ejection fraction is estimated at 45 to 50%.There seems to be mild hypokinesis of mid to apical anterolateral and basal inferolateral plascencia. Stress test: 09/24: Large sized perfusion abnormality of moderate severity in inferior and lateral plascencia with reversibility noted in entire anterior, mid to apical inferior and mid to apical inferolateral plascencia. This may represent ischemia in multivessel territories. However in absence of prone imaging, breast attenuation artifact cannot be completely ruled out. The left ventricular ejection fraction is mildly reduced with a value of 48%. There has been Drop in E.F as compared to prior Echo. Appreciate Cardiology Recommendations Also reports a past medical history of sleep apnea, does not use CPAP consistently at home, will order for hospital use and encourage compliance at home Oxygen requirements improving, at rest is saturating 92 to 93% on room air, saturation dropped to 89% with minimal exertion, requires 1 to 2 L supplemental O2 in this case. Status: Acute Qualifiers: Heart failure type: combined systolic and diastolic Qualified Code(s): I50.43 - Acute on chronic combined systolic (congestive) and diastolic (congestive) heart failure (4) Anemia: MORAIMA . Venofer 200 MG IV * 5 Doses Status: Acute Qualifiers: Anemia type: unspecified type Qualified Code(s): D64.9 - Anemia, unspecified (5) Hypertensive urgency: This is now resolved Continue carvedilol 12.5 p.o. twice daily, amlodipine 10 mg p.o. daily In the evening hours systolic blood pressure trending up to 1 70-1 80 systolic subsequent days. Add Imdur 15 mg p.o. daily in the afternoon and monitor for response Status: Acute (6) Elevated troponin: negative serial delta, no acute changes on EKG, less concerning for AMI reports stess test and angigram perfromed in Jun 2019 at [facility], records requested , not received yet started on asa 81mg po daily primary prevention 10 year ASCVD risk score 34%--> started atorvastatin Echocardiogram as noted above, follow-up as outpatient Status: Acute (7) Pleural effusion, left: Persistent since 04/2020, less likely consolidative process underlying CT chest without any underlying masses or consolidation, no current indication for antibiotics thoracentesis in am given ongoing pleuritic pain and persisting dyspnea in spite of improving pulm edema and CHF otherwise. S/P lt thoracentesis ( 600 cc straw colored Transduative fluid removed ) Status: Acute (8) Hypoxia: likely from CHF and pleural effusion : Improving lasix as above less likely PNA CT chest with persistent pleural effusion Status: Acute (9) Asymptomatic bacteriuria: Patient has chronic asymptomatic bacteriuria. Urine culture with Enterococcus durans noted, likely to be a colonizer. Denies dysuria, frequency. Started on amoxicillin per nephrology, completed short course of 3 days. Status: Acute Additional A&P Information + D dimer with hypoxia: Cannot obtain CTA chest to avoid contrast injury in CKD, V/q scan may not be revealing in the presence of left pleural effusion and CHF, lower extremity Doppler negative for DVT, lower suspicion for PE. Dispo: Home with HH vs SNF when ready, PT recommendatiosn appreciated DVT prophylaxis: Lovenox Full code Attestations Medical Necessity Statement*: Patient needs to be in hospital for the management of CAD S/P Stent. Coding Level of Care Code Acute Quality Control Microbiology Supervisor for Chg Fwd Exam Detailed Diagnoses CAD (coronary artery disease) I25.10 Associated angina: without angina Coronary Disease-Associated Artery/Lesion type: elem artery [place] vs. transplanted heart: elem heart Acute kidney injury superimposed on CKD N17.9; N18.9 Acute exacerbation of CHF (congestive heart failure) I50.43 Heart failure type: combined systolic and diastolic Anemia D64.9 Anemia type: unspecified type Hypertensive urgency I16.0 Elevated troponin R77.8 Pleural effusion, left J90 Hypoxia R09.02 Asymptomatic bacteriuria R82.71
[2020-09-29] MEDS: iron sucrose 200 MG in sodium chloride 0.9% (100 ml) 100 ML 220 MG IV (14:41)
[2020-09-29 16:25] LABS: Glucose Point of Care 172 mg/dL (70-110)
--- NOTE | 2020-09-29 17:48 | PC.NURSE ---
Dr. Portillo notified that Renvela tablet cannot be split for dose thats ordered. Telephone order to change dose and frequency to 800 mg BID, RBTO.
[2020-09-29] MEDS: enoxaparin 30 mg/0.3 mL Syringe SUBCUT (17:56)
[2020-09-29] MEDS: sertraline 50 mg Tablet PO (18:14)
[2020-09-29 21:03] LABS: Glucose Point of Care 135 mg/dL (70-110)
[2020-09-29] MEDS: TRAMadol 50 mg Tablet PO (21:05)
[2020-09-29] MEDS: diphenhydrAMINE 25 mg Capsule PO (21:05)
[2020-09-29] MEDS: atorvastatin 40 mg Tablet PO (21:20)
[2020-09-29] MEDS: cefTRIAXone 1,000 MG in sodium chloride 0.9% (plus) 50 ML 100 MG IV (23:40)
[2020-09-30] VITALS (10 sets, daily range): BP systolic 138–166; BP diastolic 65–135; PULSE 60–75; RESP 15–19; TEMP 36.6–36.8; O2SAT 87–97
[2020-09-30 05:01] LABS: Basophils # 0.2 10^3/uL (0.0-0.1); Basophils % 1.2 %; Eosinophils # 0.7 10^3/uL (0.0-0.8); Eosinophils % 5.4 %; Hematocrit 32.3 % (37.0-47.0); Hemoglobin 9.7 g/dL (11.5-15.3); Lymphocytes % 16.6 %; Mean Corpuscular Hemoglobin 26.3 pg (28.0-34.0); Mean Corpuscular Volume 87.5 fL (81-99); Mean Platelet Volume 10.7 fL (7.4-10.4); Monocytes # 1.7 10^3/uL (0.2-0.9); Monocytes % 13.8 %; Neutrophils # 7.49 10^3/uL (1.8-7.7); Neutrophils % 61.8 %; Nucleated Red Blood Cells % 0 %; Platelet Count 524 10^3/cmm (130-400); Red Blood Count 3.69 10^6/uL (4.1-5.3); Red Cell Distribution Width 15.5 % (12.1-15.1); White Blood Count 12.1 10^3/uL (4.0-10.0)
[2020-09-30 05:18] LABS: Alanine Aminotransferase < 5 U/L (0-33); Albumin Level 2.8 g/dL (3.5-5.2); Alkaline Phosphatase 67 IU/L (35-105); Anion Gap 11.7 (5-19); Aspartate Amino Transferase 16 U/L (0-32); Blood Urea Nitrogen 34 mg/dL (8-23); Calcium 8.5 mg/dL (8.5-10.5); Carbon Dioxide 28 mmol/L (22-29); Chloride 99 mmol/L (98-107); Globulin 2.6 g/dL (1.3-4.6); Glucose 76 mg/dL (65-115); Magnesium 1.9 mg/dL (1.7-2.3); Osmolality Calculated 286 mOsm/kg (285-295); Phosphorus 3.3 mg/dL (2.5-4.5); Potassium 3.7 mmol/L (3.5-5.1); Sodium 135 mmol/L (136-145); Total Bilirubin 0.2 mg/dL (0.15-1.2); Total Protein 5.4 g/dL (6.6-8.7)
[2020-09-30 05:27] LABS: Vancomycin Random 10.3 ug/mL (20.0-40.0)
[2020-09-30 07:01] LABS: Glucose Point of Care 92 mg/dL (70-110)
--- NOTE | 2020-09-30 07:16 | PM.PN ---
Subjective Subjective: Interval history: feels better. no n/v/f/c/fuller/d. still has redness by exit site Medications: Reviewed: Yes Medication Review Details: Current Medications Acetaminophen (Acetaminophen 325 Mg Tablet) 650 mg PO BEDTIME PRN PRN Reason: MILD PAIN Last Admin: 09/24/20 10:40 Dose: 650 mg Documented by: Albuterol Sulfate (Albuterol 2.5 Mg/0.5 Ml Neb) 2.5 mg INHALATION Q4H.RESPIRATORY PRN PRN Reason: SHORTNESS OF BREATH Alprazolam (Alprazolam 0.25 Mg Tablet) 0.25 mg PO TID PRN PRN Reason: ANXIETY Aspirin (Aspirin 81 Mg Ec Tablet) 81 mg PO DAILY [facility] Last Admin: 09/29/20 08:04 Dose: 81 mg Documented by: Atorvastatin Calcium (Atorvastatin 40 Mg Tablet) 40 mg PO BEDTIME [facility] Last Admin: 09/29/20 21:20 Dose: 40 mg Documented by: Atropine Sulfate (Atropine 1 Mg/Ml Sdv 1 Ml) 0.5 mg IVP PRN PRN PRN Reason: Symptomatic bradycardia Carvedilol (Carvedilol 3.125 Mg Tablet) 3.125 mg PO BID@ [facility] Last Admin: 09/29/20 21:20 Dose: 3.125 mg Documented by: Clopidogrel Bisulfate (Clopidogrel 75 Mg Tablet) 75 mg PO DAILY [facility] Last Admin: 09/29/20 08:03 Dose: 75 mg Documented by: Dextrose (Dextrose 50% Syringe 50 Ml) 25 ml IVP ONCE PRN; Protocol PRN Reason: hypoglycemia protocol Dextrose (Dextrose 50% Syringe 50 Ml) 50 ml IVP PRN PRN; Protocol PRN Reason: hypoglycemia protocol Diphenhydramine HCl (Diphenhydramine 25 Mg Capsule) 25 mg PO BEDTIME PRN PRN Reason: INSOMNIA Last Admin: 09/29/20 21:05 Dose: 25 mg Documented by: Enoxaparin Sodium (Enoxaparin 30 Mg/0.3 Ml Syringe) 30 mg SUBCUT Q24H [facility] Last Admin: 09/29/20 17:56 Dose: 30 mg Documented by: Furosemide (Furosemide 40 Mg Tablet) 80 mg PO BID@08,16 [facility] Last Admin: 09/29/20 15:01 Dose: 80 mg Documented by: Gentamicin Sulfate (Gentamicin 0.1% Cream 15 Gm) 1 applic TOPICAL DAILY [facility] Last Admin: 09/29/20 14:46 Dose: 1 applic Documented by: Glucagon (Glucagon 1 Mg/Ml Inj 1 Ml) 1 mg IM ONCE PRN; Protocol PRN Reason: Adult Acute Hypoglycemia Prot. Dextrose (D5w) 500 mls @ 100 mls/hr IV ONCE PRN; Protocol PRN Reason: Adult Acute Hypoglycemia Prot Sodium Chloride (Sodium Chloride 0.9%) 1,000 mls @ 0 mls/hr IV .Q0M PRN PRN Reason: hypotension or symptomatic Albumin Human (Albumin) 12.5 gm in 50 mls @ 60 mls/hr IV PRN PRN PRN Reason: Hypotension and/or symptomatic Ceftriaxone Sodium 1,000 mg/ (Sodium Chloride) 50 mls @ 100 mls/hr IV Q24H [facility]; Protocol Last Infusion: 09/30/20 00:28 Dose: Infused Documented by: Insulin Aspart (Insulin Aspart 100 Unit/1 Ml) 0 unit SUBCUT WM&BEDTIME [facility]; Protocol Last Admin: 09/29/20 21:22 Dose: Not Given Documented by: Insulin Detemir (Insulin Detemir 100 Units/1 Ml) 25 unit SUBCUT BEDTIME@2100 [facility] Last Admin: 09/29/20 21:09 Dose: 25 unit Documented by: Isosorbide Mononitrate (Isosorbide Mononitrate Er 30 Mg Tablet) 15 mg PO DAILY [facility] Last Admin: 09/29/20 08:04 Dose: 15 mg Documented by: Lactulose (Lactulose Oral Liq 20 Gm/30 Ml Udc) 20 gm PO Q6H [facility] Last Admin: 09/30/20 06:03 Dose: Not Given Documented by: Losartan Potassium (Losartan 50 Mg Tablet) 100 mg PO DAILY [facility] Last Admin: 09/29/20 08:05 Dose: 100 mg Documented by: Multivitamins (X-Textvsj-Fifmrrj C Tablet) 1 each PO DAILY [facility] Last Admin: 09/29/20 08:03 Dose: 1 each Documented by: Naloxone HCl (Naloxone 0.4 Mg/Ml Sdv) 0.1 mg IVP Q2M PRN PRN Reason: RESPIRATORY RATE < 8/MIN Nitroglycerin (Nitroglycerin 0.4 Mg Sublingual Tablet) 0.4 mg SUBLINGUAL Q5M PRN PRN Reason: CHEST PAIN Nystatin (Nystatin Powder 15 Gm Btl) 1 applic TOPICAL BID [facility] Last Admin: 09/29/20 17:31 Dose: Not Given Documented by: Ondansetron HCl (Ondansetron 2 Mg/Ml Sdv 2 Ml) 4 mg IVP Q6H PRN PRN Reason: NAUSEA AND VOMITING Polyethylene Glycol (Polyethylene Glycol 3350 Pkt 17 Gm) 17 gm PO DAILY [facility] Last Admin: 09/29/20 08:06 Dose: Not Given Documented by: Senna/Docusate Sodium (Sennosides-Docusate Tablet) 1 tab PO DAILY [facility] Last Admin: 09/29/20 08:06 Dose: Not Given Documented by: Sertraline HCl (Sertraline 50 Mg Tablet) 50 mg PO Q24H [facility] Last Admin: 09/29/20 18:14 Dose: 50 mg Documented by: Sevelamer Carbonate (Sevelamer 800 Mg Tablet) 800 mg PO BID [facility] Last Admin: 09/29/20 17:56 Dose: 800 mg Documented by: Tramadol HCl (Tramadol 50 Mg Tablet) 50 mg PO Q8H PRN PRN Reason: MODERATE PAIN Last Admin: 09/29/20 21:05 Dose: 50 mg Documented by: Vitals/I&O/Wt Last Vital Signs Temp 98.3 F 09/30/20 05:18 Pulse 60 09/30/20 06:00 Resp 15 09/30/20 05:18 BP 143/65 09/30/20 05:18 Pulse Ox 97 09/30/20 05:18 09/29/20 09/30/20 09/30/20 22:59 06:59 14:59 Intake Total 400 / 660 200 / 860 Output Total 200 / 200 Balance 400 / 660 0 / 660 Weight last 48 hrs Weight 104.326 kg Weight 104.326 kg Physical Exam Narrative: EXAM NARRATIVE: Constitutional: Awake, NARD in bed, dec edema. dec uop vs noted HEENT: nc/at, eomi, anicteric neck- supple, no jvp rt rash w/ blisters by RT ACW PC Lungs: Bilateral crackles dec CVS: S1 S2, no murmurs, irreg Abdo: Soft, BS ok Extremities: + b/l edema dec , peripheral perfusion with no cyanosis Neurological: a,a, o x 3, from x 4, no asterixis seen w/ RN- telehealth visit and exam Urinary Catheter Management^: Jesus: Cath Placed During This Visit: yes Reason for Continuing Indwelling Catheter: Accurate Measurement of Urinary Output in Critically Ill Patients Urinary Catheter Date of Insertion: 09/15/20 Urinary Catheter Time of Insertion: 14:26 Data : 09/30/20 04:26 09/30/20 04:26 Micro: Microbiology 09/28/20 14:20 Blood Culture - Preliminary Blood NEGATIVE TO DATE 09/28/20 14:25 Blood Culture - Preliminary Blood NEGATIVE TO DATE 09/28/20 08:15 Wound Culture - Preliminary Neck A&P Additional A&P Information 74 yr old female 1. JOSE LUIS on CKD- Q if ESRD or reversibility. last HD 09/28/20 -ckd stage 4 from dm and CRS -will cont lasix -monitor cr in am for need for HD. will likely need to stay HD dependent -if she is to be discharged, then i discussed her case w/ Dr. Pickering- he will monitor for possible renal recovery -phos excellent - dec renvela to 800 bid 2. Q infection vs rash at [facility] site- f/u cx. s/p vanco 1 gm on 09/28/20. will apply local gent cream or bacitracin. dr callejas to assess 3. CAD s/p LAD stent on 09/28/20. also w/ systolic CHF -it may be difficult to give the pt optimal CHF meds such as aldactone, Entresto/ or arb if we stop dialysis. Dr. Pickering and Dr. Neff can work as outpt to optimize her meds 4. anemia - iv iron and PATRIZIA w/ HD 5. HTN - controlled on current meds and cont to dec EDW on HD 6. DM control seen and examined w/ RN- telehealth visit Attestations Medical Necessity Statement*: per medicine, ESRD w/ redness by catheter site- cad s/p LAD stent Time Spent in Patient Care: 16 - 35 minutes Coding Level of Care Code Acute Cable Armorer for Ivett Koo
[2020-09-30] MEDS: b-complex-vitamin c Tablet 1 EACH PO (08:41)
[2020-09-30] MEDS: carvedilol 3.125 mg Tablet PO ×2 (08:41→21:17)
[2020-09-30] MEDS: isosorbide mononitrate ER 30 mg Tablet 15 MG PO (08:41)
[2020-09-30] MEDS: sevelamer 800 mg Tablet PO ×2 (08:41→17:26)
[2020-09-30] MEDS: clopidogrel 75 mg Tablet PO (08:43)
[2020-09-30] MEDS: aspirin 81 mg EC Tablet PO (08:43)
[2020-09-30] MEDS: losartan 50 mg Tablet 100 MG PO (08:43)
[2020-09-30] MEDS: FUROsemide 40 mg Tablet 80 MG PO ×2 (08:43→16:47)
[2020-09-30] MEDS: hydrocortisone 1% cream 28 gm 1 APPLIC TOPICAL ×2 (08:44→17:27)
--- NOTE | 2020-09-30 09:29 | PC.SOCIAL ---
IMM completed on 09/30/20 @ 3024. Copy of rights given to pt.
--- NOTE | 2020-09-30 09:30 | PC.NURSE ---
Verbal order from Dr. Savage to discontinue Gentamicin cream and follow new orders for hydrocortisone for tunneled cath.
--- NOTE | 2020-09-30 10:03 | PM.PN ---
Subjective Subjective: Interval history: Patient developed some erythema and blistering around the catheter entry site, no purulent drainage noted Vitals/I&O/Wt Last Vital Signs Temp 98.2 F 09/30/20 07:22 Pulse 70 09/30/20 07:53 Resp 16 09/30/20 07:53 BP 157/67 09/30/20 08:43 Pulse Ox 91 09/30/20 07:53 09/29/20 09/30/20 09/30/20 22:59 06:59 14:59 Intake Total 400 / 860 200 / 860 300 / 300 Output Total 200 / 200 Balance 400 / 660 0 / 660 300 / 300 Weight last 48 hrs Weight 230 lb Weight 230 lb Physical Exam Narrative: EXAM NARRATIVE: Right chest: Erythema with blistering around the catheter , appears to involve the area of the dressing Urinary Catheter Management^: Jesus: Cath Placed During This Visit: yes Reason for Continuing Indwelling Catheter: Accurate Measurement of Urinary Output in Critically Ill Patients Urinary Catheter Date of Insertion: 09/15/20 Urinary Catheter Time of Insertion: 14:26 Data : 09/30/20 04:26 09/30/20 04:26 Micro: Microbiology 09/28/20 14:20 Blood Culture - Preliminary Blood NEGATIVE TO DATE 09/28/20 14:25 Blood Culture - Preliminary Blood NEGATIVE TO DATE 09/28/20 08:15 Wound Culture - Preliminary Neck A&P Assessment and plan (1) S/P hemodialysis catheter insertion: 74-year-old female with chronic kidney disease status post hemodialysis catheter insertion. Patient developed blisters and erythema which I is more likely an allergic reaction rather than cellulitis 1% hydrocortisone cream twice daily Leave involved area open and not use any dressings Follow-up 1 week Status: Acute Attestations Medical Necessity Statement*: Status post dialysis catheter insertion with erythema most likely allergic Coding Level of Care Code Acute Occupational Health Nurse Supervisor for g Fwd Diagnoses S/P hemodialysis catheter insertion Z99.2
--- NOTE | 2020-09-30 10:15 | PC.CHAP ---
Pastoral Care Encounter/Spiritual Assessment Type of Contact [] Declined environmental studies department chair visit [] Patient/Family/Request visit [] Outpatient visit [] Follow-up visit [] Physician referral [] Code/Alert [x] Routine visit [] Staff referral [] Actively dying [] Patient sleeping [] Family support [] [] Out of room [] Palliative care [] [] Receiving care in room [] Pre-surgical visit [] Trauma [] Long length of stay [] ICU visit [] Other: Relational/Emotional Strength [] Patient feels connected with others/family/visitors/staff [] Distress [] Loneliness/isolation [] Abandonment Spirituality of Patient [] Person of Layla [] Attends Sabianist of their Layla [] Believes in Prayer [] Reads Bible or Yazidism materials [] There are Spiritual issues to be addressed Tie Worker Interventions [x] Prayer [] Active listening [] Non-anxious presence [] Spiritual/emotional support [] Crisis/trauma care [] Spiritual counseling [] Bereavement support [] Provided bereavement packet [] Provided Bible/devotional materials [] Provided toy/stuffed animal, coloring book to patient or family member [] Provided Communion [] Anointing/[place] [] Salvation [x] Completed spiritual assessment [] Other: Impact on Illness or Injury [] Angry [] Fearful [] Anxious [] Often cries [] Exhaustion [] Unable to work [] Unable to attend hoahaoism [] Unable to walk/stand [] Unable to read [] Unable to drive [] Unable to eat/drink [] Unable to sleep [] Unable to be with family [] Patient intubated [] Other: Summary going to dialysis.... always a cheerful visit Time spent with patient 10 min
[2020-09-30 16:50] LABS: Glucose Point of Care 137 mg/dL (70-110)
--- NOTE | 2020-09-30 17:01 | P.PN_ITS ---
Subjective Subjective: Interval history: Patient was seen and examined this morning.Catheter site is has developed erythema and blistering,though it has no puss,she was dialyzed this morning.her other vitals and labs have been reviewed. Medications: Reviewed: Yes Medication Review Details: Current Medications Acetaminophen (Acetaminophen 325 Mg Tablet) 650 mg PO BEDTIME PRN PRN Reason: MILD PAIN Last Admin: 09/24/20 10:40 Dose: 650 mg Documented by: Albuterol Sulfate (Albuterol 2.5 Mg/0.5 Ml Neb) 2.5 mg INHALATION Q4H.RESPIRATORY PRN PRN Reason: SHORTNESS OF BREATH Alprazolam (Alprazolam 0.25 Mg Tablet) 0.25 mg PO TID PRN PRN Reason: ANXIETY Aspirin (Aspirin 81 Mg Ec Tablet) 81 mg PO DAILY [facility] Last Admin: 09/29/20 08:04 Dose: 81 mg Documented by: Atorvastatin Calcium (Atorvastatin 40 Mg Tablet) 40 mg PO BEDTIME [facility] Last Admin: 09/29/20 21:20 Dose: 40 mg Documented by: Atropine Sulfate (Atropine 1 Mg/Ml Sdv 1 Ml) 0.5 mg IVP PRN PRN PRN Reason: Symptomatic bradycardia Carvedilol (Carvedilol 3.125 Mg Tablet) 3.125 mg PO BID@ [facility] Last Admin: 09/29/20 21:20 Dose: 3.125 mg Documented by: Clopidogrel Bisulfate (Clopidogrel 75 Mg Tablet) 75 mg PO DAILY [facility] Last Admin: 09/29/20 08:03 Dose: 75 mg Documented by: Dextrose (Dextrose 50% Syringe 50 Ml) 25 ml IVP ONCE PRN; Protocol PRN Reason: hypoglycemia protocol Dextrose (Dextrose 50% Syringe 50 Ml) 50 ml IVP PRN PRN; Protocol PRN Reason: hypoglycemia protocol Diphenhydramine HCl (Diphenhydramine 25 Mg Capsule) 25 mg PO BEDTIME PRN PRN Reason: INSOMNIA Last Admin: 09/29/20 21:05 Dose: 25 mg Documented by: Enoxaparin Sodium (Enoxaparin 30 Mg/0.3 Ml Syringe) 30 mg SUBCUT Q24H [facility] Last Admin: 09/29/20 17:56 Dose: 30 mg Documented by: Furosemide (Furosemide 40 Mg Tablet) 80 mg PO BID@08,16 [facility] Last Admin: 09/29/20 15:01 Dose: 80 mg Documented by: Gentamicin Sulfate (Gentamicin 0.1% Cream 15 Gm) 1 applic TOPICAL DAILY [facility] Last Admin: 09/29/20 14:46 Dose: 1 applic Documented by: Glucagon (Glucagon 1 Mg/Ml Inj 1 Ml) 1 mg IM ONCE PRN; Protocol PRN Reason: Adult Acute Hypoglycemia Prot. Dextrose (D5w) 500 mls @ 100 mls/hr IV ONCE PRN; Protocol PRN Reason: Adult Acute Hypoglycemia Prot Sodium Chloride (Sodium Chloride 0.9%) 1,000 mls @ 0 mls/hr IV .Q0M PRN PRN Reason: hypotension or symptomatic Albumin Human (Albumin) 12.5 gm in 50 mls @ 60 mls/hr IV PRN PRN PRN Reason: Hypotension and/or symptomatic Ceftriaxone Sodium 1,000 mg/ (Sodium Chloride) 50 mls @ 100 mls/hr IV Q24H [facility]; Protocol Last Infusion: 09/30/20 00:28 Dose: Infused Documented by: Insulin Aspart (Insulin Aspart 100 Unit/1 Ml) 0 unit SUBCUT WM&BEDTIME [facility]; Protocol Last Admin: 09/29/20 21:22 Dose: Not Given Documented by: Insulin Detemir (Insulin Detemir 100 Units/1 Ml) 25 unit SUBCUT BEDTIME@2100 [facility] Last Admin: 09/29/20 21:09 Dose: 25 unit Documented by: Isosorbide Mononitrate (Isosorbide Mononitrate Er 30 Mg Tablet) 15 mg PO DAILY [facility] Last Admin: 09/29/20 08:04 Dose: 15 mg Documented by: Lactulose (Lactulose Oral Liq 20 Gm/30 Ml Udc) 20 gm PO Q6H [facility] Last Admin: 09/30/20 06:03 Dose: Not Given Documented by: Losartan Potassium (Losartan 50 Mg Tablet) 100 mg PO DAILY [facility] Last Admin: 09/29/20 08:05 Dose: 100 mg Documented by: Multivitamins (A-Knhtsnn-Kwuoger C Tablet) 1 each PO DAILY [facility] Last Admin: 09/29/20 08:03 Dose: 1 each Documented by: Naloxone HCl (Naloxone 0.4 Mg/Ml Sdv) 0.1 mg IVP Q2M PRN PRN Reason: RESPIRATORY RATE < 8/MIN Nitroglycerin (Nitroglycerin 0.4 Mg Sublingual Tablet) 0.4 mg SUBLINGUAL Q5M PRN PRN Reason: CHEST PAIN Nystatin (Nystatin Powder 15 Gm Btl) 1 applic TOPICAL BID [facility] Last Admin: 09/29/20 17:31 Dose: Not Given Documented by: Ondansetron HCl (Ondansetron 2 Mg/Ml Sdv 2 Ml) 4 mg IVP Q6H PRN PRN Reason: NAUSEA AND VOMITING Polyethylene Glycol (Polyethylene Glycol 3350 Pkt 17 Gm) 17 gm PO DAILY [facility] Last Admin: 09/29/20 08:06 Dose: Not Given Documented by: Senna/Docusate Sodium (Sennosides-Docusate Tablet) 1 tab PO DAILY [facility] Last Admin: 09/29/20 08:06 Dose: Not Given Documented by: Sertraline HCl (Sertraline 50 Mg Tablet) 50 mg PO Q24H [facility] Last Admin: 09/29/20 18:14 Dose: 50 mg Documented by: Sevelamer Carbonate (Sevelamer 800 Mg Tablet) 800 mg PO BID [facility] Last Admin: 09/29/20 17:56 Dose: 800 mg Documented by: Tramadol HCl (Tramadol 50 Mg Tablet) 50 mg PO Q8H PRN PRN Reason: MODERATE PAIN Last Admin: 09/29/20 21:05 Dose: 50 mg Documented by: Vitals/I&O/Wt Last Vital Signs Temp 98.0 F 09/30/20 16:31 Pulse 75 09/30/20 16:31 Resp 18 09/30/20 16:31 BP 166/135 09/30/20 16:31 Pulse Ox 94 09/30/20 16:31 09/30/20 09/30/20 09/30/20 06:59 14:59 22:59 Intake Total 200 / 860 660 / 660 Output Total 200 / 200 Balance 0 / 660 660 / 660 Weight last 48 hrs Weight 104.326 kg Weight 104.326 kg Physical Exam Const: COMMON NORMALS: patient oriented x3 HENMT: COMMON NORMALS: normocephalic and atraumatic HEAD & SCALP: normocephalic and atraumatic Resp: COMMON NORMALS: normal respiratory effort and clear to auscultation bilaterally EFFORT & INSPECTION: Yes symmetric chest movement AUSCULTATION: clear to auscultation bilaterally OTHER: Diminished Air entry LLL , b/l basal crackles. Cardio: COMMON NORMALS: regular rate, regular rhythm, S1 normal heart sound present, S2 normal heart sound present, No gallops present (Cardio), No murmurs present (Cardio), No rub (Cardio) and Peripheral pulses 2+ throughout RATE: regular rate RHYTHM: regular rhythm HEART SOUNDS: S1 normal heart sound present and S2 normal heart sound present PERIPHERAL PULSES: Peripheral pulses 2+ throughout GI: COMMON NORMALS: Normal to inspection, nondistended, normoactive bowel sounds present, Soft to palpation, non-tender, No hepatosplenomegaly present and no masses AUSCULTATION: Yes normoactive bowel sounds PALPATION: Yes Soft to palpation and Yes No hepatosplenomegaly present RECTAL EXAM: deferred Extremity: COMMON NORMALS: no clubbing, cyanosis or edema and no pedal edema NARRATIVE EXTREMITY EXAM: Trace b/l l/e pitting edema Neuro: COMMON NORMALS: patient oriented x3 Urinary Catheter Management^: Jesus: Cath Placed During This Visit: yes Reason for Continuing Indwelling Catheter: Accurate Measurement of Urinary Output in Critically Ill Patients Urinary Catheter Date of Insertion: 09/15/20 Urinary Catheter Time of Insertion: 14:26 Data : 09/30/20 04:26 09/30/20 04:26 Micro: Microbiology 09/28/20 08:15 Wound Culture - Preliminary Neck 09/28/20 14:20 Blood Culture - Preliminary Blood NEGATIVE TO DATE 09/28/20 14:25 Blood Culture - Preliminary Blood NEGATIVE TO DATE A&P Assessment and plan (1) CAD (coronary artery disease): CAD S/P Stent ( Mid LAD ) ( Patient underwent Resolute DINA drug-eluting stent placement to mid LAD (2.75 x 15 mm) after IFR was found to be 0.84) Mild disease in right coronary artery and circumflex artery.OM1 is a small artery and appears occluded proximally. Plan for medical management for that. Continue Aspirin, Plavix 75 mg po daily as well as statin. as well as IMDUR 15 mg po daily Status: Acute Qualifiers: Associated angina: without angina Coronary Disease-Associated Artery/Lesion type: [place] artery [place] vs. 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 currently diuresing well with lasix 80 mg q12 h daily tunneled catheter ( 09/25),H/D Initiation : 09/26. Rt I.J Catheter Site has erythema as well as blistering.blood Culture from catheter: Negative She has been given i.v vanc as well as topical,gentamicin ointment was being applied.Now it has been switched to Hydrocortisone cream thinking allergic reaction. She has to follow as outpatient for possible continued dialysis v/s renal recovery. Appreciate nephrology recommendations. Status: Acute (3) Acute exacerbation of CHF (congestive heart failure): Initially on Lasix 80 mg IV every 12 hours + metolazone 5mg po daily. Currently on alsix 80 mg po q12 h daily. Losartan 100 mg po daily Prior Echocardiogram Normal left ventricular cavity size and markedly increased wall thickness. Severe concentric left ventricular hypertrophy. Mildly decreased decreased left ventricular systolic function.. Left ventricular ejection fraction is estimated at 45-50 %. Grade II diastolic dysfunction, moderately elevated filling pressures. 2D echo with contrast: 09/23 : Mildly decreased left ventricle systolic function. Left ventricle ejection fraction is estimated at 45 to 50%.There seems to be mild hypokinesis of mid to apical anterolateral and basal inf erolateral plascencia. Stress test: 09/24: Large sized perfusion abnormality of moderate severity in inferior and lateral plascencia with reversibility noted in entire anterior, mid to apical inferior and mid to apical inferolateral plascencia. This may represent ischemia in multivessel territories. However in absence of prone imaging, breast attenuation artifact cannot be completely ruled out. The left ventricular ejection fraction is mildly reduced with a value of 48%. There has been Drop in E.F as compared to prior Echo. Appreciate Cardiology Recommendations Also reports a past medical history of sleep apnea, does not use CPAP consistently at home, will order for hospital use and encourage compliance at home Oxygen requirements improving, at rest is saturating 92 to 93% on room air, saturation dropped to 89% with minimal exertion, requires 1 to 2 L supplemental O2 in this case. Status: Acute Qualifiers: Heart failure type: combined systolic and diastolic Qualified Code(s): I50.43 - Acute on chronic combined systolic (congestive) and diastolic (congestive) heart failure (4) Anemia: MORAIMA . Completed Venofer 200 MG IV * 5 Doses Status: Acute Qualifiers: Anemia type: unspecified type Qualified Code(s): D64.9 - Anemia, unspecified (5) Hypertensive urgency: This is now resolved Continue carvedilol 12.5 p.o. twice daily, amlodipine 10 mg p.o. daily In the evening hours systolic blood pressure trending up to 1 70-1 80 systolic subsequent days. Add Imdur 15 mg p.o. daily in the afternoon and monitor for response Status: Acute (6) Elevated troponin: negative serial delta, no acute changes on EKG, less concerning for AMI reports stess test and angigram perfromed in Jun 2019 at [facility], records requested , not received yet started on asa 81mg po daily primary prevention 10 year ASCVD risk score 34%--> started atorvastatin Echocardiogram as noted above, follow-up as outpatient Status: Acute (7) Pleural effusion, left: Persistent since 04/2020, less likely consolidative process underlying CT chest without any underlying masses or consolidation, no current indication for antibiotics thoracentesis in am given ongoing pleuritic pain and persisting dyspnea in spite of improving pulm edema and CHF otherwise. S/P lt thoracentesis ( 600 cc straw colored Transduative fluid removed ) Status: Acute (8) Hypoxia: likely from CHF and pleural effusion : Improving lasix as above less likely PNA CT chest with persistent pleural effusion Status: Acute (9) Asymptomatic bacteriuria: Patient has chronic asymptomatic bacteriuria. Urine culture with Enterococcus durans noted, likely to be a colonizer. Denies dysuria, frequency. Started on amoxicillin per nephrology, completed short course of 3 days. Status: Acute Additional A&P Information + D dimer with hypoxia: Cannot obtain CTA chest to avoid contrast injury in CKD, V/q scan may not be revealing in the presence of left pleural effusion and CHF, lower extremity Doppler negative for DVT, lower suspicion for PE. Dispo: Home with HH vs SNF when ready, PT recommendatiosn appreciated DVT prophylaxis: Lovenox Full code Attestations Medical Necessity Statement*: Awaiting Placement to SNF. Coding Level of Care Code Acute Dog Handler Or Trainer for g Fwd Exam Detailed Diagnoses CAD (coronary artery disease) I25.10 Associated angina: without angina Coronary Disease-Associated Artery/Lesion type: [place] artery [place] vs. transplanted heart: [place] heart Acute kidney injury superimposed on CKD N17.9; N18.9 Acute exacerbation of CHF (congestive heart failure) I50.43 Heart failure type: combined systolic and diastolic Anemia D64.9 Anemia type: unspecified type Hypertensive urgency I16.0 Elevated troponin R77.8 Pleural effusion, left J90 Hypoxia R09.02 Asymptomatic bacteriuria R82.71
[2020-09-30] MEDS: enoxaparin 30 mg/0.3 mL Syringe SUBCUT (17:26)
[2020-09-30] MEDS: TRAMadol 50 mg Tablet PO (17:34)
--- NOTE | 2020-09-30 20:35 | P.PN_ITS ---
Subjective Subjective: Interval history: No new complaints. Medications: Reviewed: Yes Medication Review Details: Current Medications Acetaminophen (Acetaminophen 325 Mg Tablet) 650 mg PO BEDTIME PRN PRN Reason: MILD PAIN Last Admin: 09/24/20 10:40 Dose: 650 mg Documented by: Albuterol Sulfate (Albuterol 2.5 Mg/0.5 Ml Neb) 2.5 mg INHALATION Q4H.RESPIRATORY PRN PRN Reason: SHORTNESS OF BREATH Alprazolam (Alprazolam 0.25 Mg Tablet) 0.25 mg PO TID PRN PRN Reason: ANXIETY Aspirin (Aspirin 81 Mg Ec Tablet) 81 mg PO DAILY [facility] Last Admin: 09/30/20 08:43 Dose: 81 mg Documented by: Atorvastatin Calcium (Atorvastatin 40 Mg Tablet) 40 mg PO BEDTIME [facility] Last Admin: 09/29/20 21:20 Dose: 40 mg Documented by: Atropine Sulfate (Atropine 1 Mg/Ml Sdv 1 Ml) 0.5 mg IVP PRN PRN PRN Reason: Symptomatic bradycardia Carvedilol (Carvedilol 3.125 Mg Tablet) 3.125 mg PO BID@ [facility] Last Admin: 09/30/20 08:41 Dose: 3.125 mg Documented by: Clopidogrel Bisulfate (Clopidogrel 75 Mg Tablet) 75 mg PO DAILY [facility] Last Admin: 09/30/20 08:43 Dose: 75 mg Documented by: Dextrose (Dextrose 50% Syringe 50 Ml) 25 ml IVP ONCE PRN; Protocol PRN Reason: hypoglycemia protocol Dextrose (Dextrose 50% Syringe 50 Ml) 50 ml IVP PRN PRN; Protocol PRN Reason: hypoglycemia protocol Diphenhydramine HCl (Diphenhydramine 25 Mg Capsule) 25 mg PO BEDTIME PRN PRN Reason: INSOMNIA Last Admin: 09/29/20 21:05 Dose: 25 mg Documented by: Enoxaparin Sodium (Enoxaparin 30 Mg/0.3 Ml Syringe) 30 mg SUBCUT Q24H [facility] Last Admin: 09/30/20 17:26 Dose: 30 mg Documented by: Furosemide (Furosemide 40 Mg Tablet) 80 mg PO BID@,16 [facility] Last Admin: 09/30/20 16:47 Dose: 80 mg Documented by: Glucagon (Glucagon 1 Mg/Ml Inj 1 Ml) 1 mg IM ONCE PRN; Protocol PRN Reason: Adult Acute Hypoglycemia Prot. Hydrocortisone (Hydrocortisone 1% Cream 28 Gm) 1 applic TOPICAL BID [facility] Last Admin: 09/30/20 17:27 Dose: 1 applic Documented by: Dextrose (D5w) 500 mls @ 100 mls/hr IV ONCE PRN; Protocol PRN Reason: Adult Acute Hypoglycemia Prot Sodium Chloride (Sodium Chloride 0.9%) 1,000 mls @ 0 mls/hr IV .Q0M PRN PRN Reason: hypotension or symptomatic Albumin Human (Albumin) 12.5 gm in 50 mls @ 60 mls/hr IV PRN PRN PRN Reason: Hypotension and/or symptomatic Ceftriaxone Sodium 1,000 mg/ (Sodium Chloride) 50 mls @ 100 mls/hr IV Q24H [facility]; Protocol Last Infusion: 09/30/20 00:28 Dose: Infused Documented by: Insulin Aspart (Insulin Aspart 100 Unit/1 Ml) 0 unit SUBCUT WM&BEDTIME JT; P rotocol Last Admin: 09/30/20 17:10 Dose: Not Given Documented by: Insulin Detemir (Insulin Detemir 100 Units/1 Ml) 25 unit SUBCUT BEDTIME@2100 [facility] Last Admin: 09/29/20 21:09 Dose: 25 unit Documented by: Isosorbide Mononitrate (Isosorbide Mononitrate Er 30 Mg Tablet) 15 mg PO DAILY [facility] Last Admin: 09/30/20 08:41 Dose: 15 mg Documented by: Lactulose (Lactulose Oral Liq 20 Gm/30 Ml Udc) 20 gm PO Q6H [facility] Last Admin: 09/30/20 17:32 Dose: Not Given Documented by: Losartan Potassium (Losartan 50 Mg Tablet) 100 mg PO DAILY [facility] Last Admin: 09/30/20 08:43 Dose: 100 mg Documented by: Multivitamins (A-Dwkblxq-Vybaogn C Tablet) 1 each PO DAILY [facility] Last Admin: 09/30/20 08:41 Dose: 1 each Documented by: Naloxone HCl (Naloxone 0.4 Mg/Ml Sdv) 0.1 mg IVP Q2M PRN PRN Reason: RESPIRATORY RATE < 8/MIN Nitroglycerin (Nitroglycerin 0.4 Mg Sublingual Tablet) 0.4 mg SUBLINGUAL Q5M PRN PRN Reason: CHEST PAIN Nystatin (Nystatin Powder 15 Gm Btl) 1 applic TOPICAL BID [facility] Last Admin: 09/30/20 17:10 Dose: Not Given Documented by: Ondansetron HCl (Ondansetron 2 Mg/Ml Sdv 2 Ml) 4 mg IVP Q6H PRN PRN Reason: NAUSEA AND VOMITING Polyethylene Glycol (Polyethylene Glycol 3350 Pkt 17 Gm) 17 gm PO DAILY [facility] Last Admin: 09/30/20 09:18 Dose: Not Given Documented by: Senna/Docusate Sodium (Sennosides-Docusate Tablet) 1 tab PO DAILY [facility] Last Admin: 09/30/20 09:18 Dose: Not Given Documented by: Sertraline HCl (Sertraline 50 Mg Tablet) 50 mg PO BEDTIME [facility] Sevelamer Carbonate (Sevelamer 800 Mg Tablet) 800 mg PO BID [facility] Last Admin: 09/30/20 17:26 Dose: 800 mg Documented by: Tramadol HCl (Tramadol 50 Mg Tablet) 50 mg PO Q8H PRN PRN Reason: MODERATE PAIN Last Admin: 09/30/20 17:34 Dose: 50 mg Documented by: Vitals/I&O/Wt Last Vital Signs Temp 98.0 F 09/30/20 16:31 Pulse 72 09/30/20 20:02 Resp 16 09/30/20 20:02 BP 166/135 09/30/20 16:31 Pulse Ox 92 09/30/20 20:02 09/30/20 09/30/20 09/30/20 06:59 14:59 22:59 Intake Total 200 / 860 660 / 660 240 / 900 Output Total 200 / 200 50 / 50 Balance 0 / 660 610 / 610 240 / 850 Weight last 48 hrs Weight 230 lb Weight 230 lb Physical Exam Narrative: EXAM NARRATIVE: GENERAL: Obese woman lying in bed in no acute distress HEENT: Extraocular movement intact. Pupils equal round reactive to light. No pallor or icterus. NECK: central trachea, no JVD appreciated Chest: Right upper chest wall tunneled hemodialysis catheter in place; appears erythematous and swollen CARDIOVASCULAR SYSTEM: S1-S2 regular. No murmur rubs or gallops. RESPIRATORY SYSTEM: Decreased breath sounds left basal lung franklin> right. no wheezes rhonchi heard. +rales left basal lung field. No use of accessory muscles. ABDOMEN: Soft, nontender and nondistended. Normal bowel sounds present. EXTREMITIES: No cyanosis or clubbing. trace-1+ edema bilaterally. YANNA stocking in place TRAVEL OT: Patient is alert oriented ?3. No focal neurological deficits. Urinary Catheter Management^: Jesus: Cath Placed During This Visit: yes, but has since been removed by the nurse Reason for Continuing Indwelling Catheter: Accurate Measurement of Urinary Output in Critically Ill Patients Urinary Catheter Date of Insertion: 09/15/20 Urinary Catheter Time of Insertion: 14:26 Date Urinary Catheter Removed: 09/30/20 Time Urinary Catheter Discontinued: 15:00 Data : 09/30/20 04:26 09/30/20 04:26 Micro: Microbiology 09/28/20 08:15 Wound Culture - Preliminary Neck A&P Assessment and plan (1) CAD (coronary artery disease): S/p mid LAD DOT; mild disease in right coronary artery and circumflex artery. OM1 is a small artery and appears occluded proximally. Plan for medical management for that -Continue aspirin, Plavix and statin. -Low-dose Imdur 15 mg. Remains chest pain-free. No arrhythmia on telemetry. -Spoke to patient as well as her daughter Chanelle and updated them on findings of cardiac catheterization and further management plan. -Plan for discharge per primary team. -f/u in 1 week at [facility] with John and in 1 month with me. Status: Acute Qualifiers: Coronary Disease-Associated Artery/Lesion type: [place]asta artery [place] vs. transplanted heart: [place]asta heart Associated angina: without angina Qualified Code(s): I25.10 - Atherosclerotic heart disease of [place] coronary ar rylie without angina pectoris (2) Acute exacerbation of CHF (congestive heart failure): -Heart failure with midrange EF (LVEF 45 to 50%) -currently on losartan and coreg. -Continue Lasix Status: Acute Qualifiers: Heart failure type: combined systolic and diastolic Qualified Code(s): I50.43 - Acute on chronic combined systolic (congestive) and diastolic (congestive) heart failure (3) Hypertension: May increase imdur to 30 mg if BP runs high Status: Acute Qualifiers: Hypertension type: essential hypertension Qualified Code(s): I10 - Essential (primary) hypertension (4) Diabetes: Status: Acute Qualifiers: Diabetes mellitus type: type 2 Diabetes mellitus bed bug exterminator insulin use: with bed bug exterminator use Diabetes mellitus complication status: with neurologic complications Diabetes mellitus complication detail: with polyneuropathy Qualified Code(s): E11.42 - Type 2 diabetes mellitus with diabetic polyneuropathy; Z79.4 - terminal operator (current) use of insulin (5) CKD (chronic kidney disease): Status: Acute Qualifiers: Chronic kidney disease stage: unspecified stage Qualified Code(s): N18.9 - Chronic kidney disease, unspecified (6) Acute kidney injury: JOSE LUIS on CKD. -S/p tunneled dialysis catheter placement and hemodialysis -Concern for infection at site of permacath. On antibiotics per primary and nephrology teams - Status: Acute Additional A&P Information Hyperlipidemia: Calculated LDL greater than 120 with goal LDL of less than 70. Anemia: Hemoglobin stable Thrombocytosis s/p left thoracentesis Normocytic anemia H/o gastritis Thank you for allowing me to participate in patient's care. Please feel free to call with questions or concerns. Attestations Medical Necessity Statement*: As per primary team Coding Level of Care Code Acute Linderman Operator for Ivett Fwd Diagnoses CAD (coronary artery disease) I25.10 Coronary Disease-Associated Artery/Lesion type: [place] artery [place] vs. transplanted heart: [place] heart Associated angina: without angina Acute exacerbation of CHF (congestive heart failure) I50.43 Heart failure type: combined systolic and diastolic Hypertension I10 Hypertension type: essential hypertension Diabetes E11.42; Z79.4 Diabetes mellitus type: type 2 Diabetes mellitus care home insulin use: with bed bug exterminator use Diabetes mellitus complication status: with neurologic complications Diabetes mellitus complication detail: with polyneuropathy CKD (chronic kidney disease) N18.9 Chronic kidney disease stage: unspecified stage Acute kidney injury N17.9
[2020-09-30] MEDS: atorvastatin 40 mg Tablet PO (21:16)
[2020-09-30] MEDS: cefTRIAXone 1,000 MG in sodium chloride 0.9% (plus) 50 ML 100 MG IV (21:16)
[2020-09-30] MEDS: diphenhydrAMINE 25 mg Capsule PO (21:17)
[2020-09-30] MEDS: sertraline 50 mg Tablet PO (21:17)
[2020-09-30 21:39] LABS: Glucose Point of Care 143 mg/dL (70-110)
[2020-10-01] VITALS (12 sets, daily range): BP systolic 127–179; BP diastolic 63–92; PULSE 66–73; RESP 14–21; TEMP 36.6–36.9; O2SAT 90–96
[2020-10-01] MEDS: lactulose oral liq 20 gm/30 mL UDC PO ×2 (00:48→06:06)
[2020-10-01 05:14] LABS: Basophils # 0.2 10^3/uL (0.0-0.1); Basophils % 1.3 %; Eosinophils # 0.6 10^3/uL (0.0-0.8); Eosinophils % 4.5 %; Lymphocytes % 16.1 %; Mean Corpuscular HGB Conc 30.3 g/dL (30.0-36.0); Mean Corpuscular Volume 89.2 fL (81-99); Mean Platelet Volume 10.7 fL (7.4-10.4); Monocytes # 1.6 10^3/uL (0.2-0.9); Monocytes % 13.1 %; Neutrophils # 7.88 10^3/uL (1.8-7.7); Neutrophils % 63.4 %; Nucleated Red Blood Cells % 0.2 %; Platelet Count 527 10^3/cmm (130-400); Red Cell Distribution Width 15.9 % (12.1-15.1); White Blood Count 12.4 10^3/uL (4.0-10.0)
[2020-10-01 05:36] LABS: Alanine Aminotransferase < 5 U/L (0-33); Albumin Level 2.7 g/dL (3.5-5.2); Alkaline Phosphatase 66 IU/L (35-105); Anion Gap 12.9 (5-19); Aspartate Amino Transferase 12 U/L (0-32); Blood Urea Nitrogen 23 mg/dL (8-23); Calcium 8.4 mg/dL (8.5-10.5); Carbon Dioxide 28 mmol/L (22-29); Chloride 100 mmol/L (98-107); Globulin 2.7 g/dL (1.3-4.6); Glucose 73 mg/dL (65-115); Magnesium 1.9 mg/dL (1.7-2.3); Osmolality Calculated 286 mOsm/kg (285-295); Phosphorus 2.9 mg/dL (2.5-4.5); Potassium 3.9 mmol/L (3.5-5.1); Sodium 137 mmol/L (136-145); Total Bilirubin 0.2 mg/dL (0.15-1.2); Total Protein 5.4 g/dL (6.6-8.7)
[2020-10-01 05:39] LABS: Vancomycin Random 8.5 ug/mL (20.0-40.0)
--- NOTE | 2020-10-01 05:57 | PC.NURSE ---
Jesus discontinued 09/30/20 around 3pm. Pt has not voided all night. Pt denies any urges to void. Pelvic area is soft to palpation. Bladder scan showed a max amount of 169mL. Will continue to monitor pt.
[2020-10-01 06:44] LABS: Glucose Point of Care 81 mg/dL (70-110)
--- NOTE | 2020-10-01 07:06 | PM.PN ---
Subjective Subjective: Interval history: no n/v/f/c/fuller/d. concerend that she is not urinating. Medications: Reviewed: Yes Medication Review Details: Current Medications Acetaminophen (Acetaminophen 325 Mg Tablet) 650 mg PO BEDTIME PRN PRN Reason: MILD PAIN Last Admin: 09/24/20 10:40 Dose: 650 mg Documented by: Albuterol Sulfate (Albuterol 2.5 Mg/0.5 Ml Neb) 2.5 mg INHALATION Q4H.RESPIRATORY PRN PRN Reason: SHORTNESS OF BREATH Alprazolam (Alprazolam 0.25 Mg Tablet) 0.25 mg PO TID PRN PRN Reason: ANXIETY Aspirin (Aspirin 81 Mg Ec Tablet) 81 mg PO DAILY [facility] Last Admin: 09/30/20 08:43 Dose: 81 mg Documented by: Atorvastatin Calcium (Atorvastatin 40 Mg Tablet) 40 mg PO BEDTIME [facility] Last Admin: 09/30/20 21:16 Dose: 40 mg Documented by: Atropine Sulfate (Atropine 1 Mg/Ml Sdv 1 Ml) 0.5 mg IVP PRN PRN PRN Reason: Symptomatic bradycardia Carvedilol (Carvedilol 3.125 Mg Tablet) 3.125 mg PO BID@ [facility] Last Admin: 09/30/20 21:17 Dose: 3.125 mg Documented by: Clopidogrel Bisulfate (Clopidogrel 75 Mg Tablet) 75 mg PO DAILY [facility] Last Admin: 09/30/20 08:43 Dose: 75 mg Documented by: Dextrose (Dextrose 50% Syringe 50 Ml) 25 ml IVP ONCE PRN; Protocol PRN Reason: hypoglycemia protocol Dextrose (Dextrose 50% Syringe 50 Ml) 50 ml IVP PRN PRN; Protocol PRN Reason: hypoglycemia protocol Diphenhydramine HCl (Diphenhydramine 25 Mg Capsule) 25 mg PO BEDTIME PRN PRN Reason: INSOMNIA Last Admin: 09/30/20 21:17 Dose: 25 mg Documented by: Enoxaparin Sodium (Enoxaparin 30 Mg/0.3 Ml Syringe) 30 mg SUBCUT Q24H [facility] Last Admin: 09/30/20 17:26 Dose: 30 mg Documented by: Furosemide (Furosemide 40 Mg Tablet) 80 mg PO BID@08,16 [facility] Last Admin: 09/30/20 16:47 Dose: 80 mg Documented by: Glucagon (Glucagon 1 Mg/Ml Inj 1 Ml) 1 mg IM ONCE PRN; Protocol PRN Reason: Adult Acute Hypoglycemia Prot. Hydrocortisone (Hydrocortisone 1% Cream 28 Gm) 1 applic TOPICAL BID [facility] Last Admin: 09/30/20 17:27 Dose: 1 applic Documented by: Dextrose (D5w) 500 mls @ 100 mls/hr IV ONCE PRN; Protocol PRN Reason: Adult Acute Hypoglycemia Prot Sodium Chloride (Sodium Chloride 0.9%) 1,000 mls @ 0 mls/hr IV .Q0M PRN PRN Reason: hypotension or symptomatic Albumin Human (Albumin) 12.5 gm in 50 mls @ 60 mls/hr IV PRN PRN PRN Reason: Hypotension and/or symptomatic Ceftriaxone Sodium 1,000 mg/ (Sodium Chloride) 50 mls @ 100 mls/hr IV Q24H [facility]; Protocol Last Infusion: 09/30/20 21:47 Dose: Infused Documented by: Insulin Aspart (Insulin Aspart 100 Unit/1 Ml) 0 unit SUBCUT WM&BEDTIME [facility]; Protocol Last Admin: 10/01/20 07:06 Dose: Not Given Documented by: Insulin Detemir (Insulin Detemir 100 Units/1 Ml) 25 unit SUBCUT BEDTIME@2100 [facility] Last Admin: 09/30/20 21:28 Dose: 25 unit Documented by: Isosorbide Mononitrate (Isosorbide Mononitrate Er 30 Mg Tablet) 15 mg PO DAILY [facility] Last Admin: 09/30/20 08:41 Dose: 15 mg Documented by: Lactulose (Lactulose Oral Liq 20 Gm/30 Ml Udc) 20 gm PO Q6H [facility] Last Admin: 10/01/20 06:06 Dose: 20 gm Documented by: Losartan Potassium (Losartan 50 Mg Tablet) 100 mg PO DAILY [facility] Last Admin: 09/30/20 08:43 Dose: 100 mg Documented by: Multivitamins (E-Cgirlyn-Pwlrfli C Tablet) 1 each PO DAILY [facility] Last Admin: 09/30/20 08:41 Dose: 1 each Documented by: Naloxone HCl (Naloxone 0.4 Mg/Ml Sdv) 0.1 mg IVP Q2M PRN PRN Reason: RESPIRATORY RATE < 8/MIN Nitroglycerin (Nitroglycerin 0.4 Mg Sublingual Tablet) 0.4 mg SUBLINGUAL Q5M PRN PRN Reason: CHEST PAIN Nystatin (Nystatin Powder 15 Gm Btl) 1 applic TOPICAL BID [facility] Last Admin: 09/30/20 17:10 Dose: Not Given Documented by: Ondansetron HCl (Ondansetron 2 Mg/Ml Sdv 2 Ml) 4 mg IVP Q6H PRN PRN Reason: NAUSEA AND VOMITING Polyethylene Glycol (Polyethylene Glycol 3350 Pkt 17 Gm) 17 gm PO DAILY [facility] Last Admin: 09/30/20 09:18 Dose: Not Given Documented by: Senna/Docusate Sodium (Sennosides-Docusate Tablet) 1 tab PO DAILY [facility] Last Admin: 09/30/20 09:18 Dose: Not Given Documented by: Sertraline HCl (Sertraline 50 Mg Tablet) 50 mg PO BEDTIME [facility] Last Admin: 09/30/20 21:17 Dose: 50 mg Documented by: Sevelamer Carbonate (Sevelamer 800 Mg Tablet) 800 mg PO BID [facility] Last Admin: 09/30/20 17:26 Dose: 800 mg Documented by: Tramadol HCl (Tramadol 50 Mg Tablet) 50 mg PO Q8H PRN PRN Reason: MODERATE PAIN Last Admin: 09/30/20 17:34 Dose: 50 mg Documented by: Vitals/I&O/Wt Last Vital Signs Temp 98.4 F 10/01/20 05:30 Pulse 66 10/01/20 05:55 Resp 14 10/01/20 05:30 BP 157/69 10/01/20 05:30 Pulse Ox 93 10/01/20 05:30 09/30/20 10/01/20 10/01/20 22:59 06:59 14:59 Intake Total 290 / 950 100 / 1050 Balance 290 / 900 100 / 1000 Weight last 48 hrs Weight 104.372 kg Weight 104.326 kg Physical Exam Narrative: EXAM NARRATIVE: Constitutional: Awake, NARD in bed, dec edema. dec uop vs noted HEENT: nc/at, eomi, anicteric neck- supple, no jvp rt rash w/ blisters by RT ACW PC Lungs: Bilateral good air movement CVS: S1 S2, no murmurs, irreg Abdo: Soft, BS ok Extremities: + b/l much improved leg edema , peripheral perfusion with no cyanosis Neurological: a,a, o x 3, from x 4, no asterixis seen w/ RN- telehealth visit and exam Urinary Catheter Management^: Jesus: Cath Placed During This Visit: yes, but has since been removed by the nurse Reason for Continuing Indwelling Catheter: Accurate Measurement of Urinary Output in Critically Ill Patients Urinary Catheter Date of Insertion: 09/15/20 Urinary Catheter Time of Insertion: 14:26 Date Urinary Catheter Removed: 09/30/20 Time Urinary Catheter Discontinued: 15:00 Data : 10/01/20 04:44 10/01/20 04:44 Micro: Microbiology 09/28/20 08:15 Wound Culture - Preliminary Neck A&P Additional A&P Information 74 yr old female 1. JOSE LUIS on CKD- Q if ESRD or reversibility. last HD 09/28/20 -ckd stage 4 from dm and CRS -dec lasix -HD MWF -on d/c Dr. Pickering will monitor for possible renal recovery -phos excellent - dec renvela to 800 bid 2. monitro bladder scan daily- has 169 ml in bladder- october nee ocassional straight cath 3. eryethem by PERMACTAH exit site- blood cx and exit site cultures were negative.x. s/p vanco 1 gm on 09/28/20. will apply local gent cream or bacitracin. dr júnior flores, does not think it is infected. he feels it is a rash- recommnends 1% hydrocortisone cream bid and no dressing - f/u w/ him in office in a week 3. CAD s/p LAD stent on 09/28/20. also w/ systolic CHF -it may be difficult to give the pt optimal CHF meds such as aldactone, Entresto/ or arb if we stop dialysis. Dr. Pickering and Dr. Neff can work as outpt to optimize her meds 4. anemia - iv iron and PATRIZIA w/ HD 5. HTN - controlled on current meds and cont to dec EDW on HD 6. DM control seen and examined w/ RN- telehealth visit Attestations Medical Necessity Statement*: JOSE LUIS- await placement Time Spent in Patient Care: 16 - 35 minutes Coding Level of Care Code Acute Slag Mixer for Ivett Koo
[2020-10-01] MEDS: hydrocortisone 1% cream 28 gm 1 APPLIC TOPICAL ×2 (08:31→17:59)
[2020-10-01] MEDS: b-complex-vitamin c Tablet 1 EACH PO (08:32)
[2020-10-01] MEDS: carvedilol 3.125 mg Tablet PO ×2 (08:32→20:50)
[2020-10-01] MEDS: sevelamer 800 mg Tablet PO ×2 (08:32→17:32)
[2020-10-01] MEDS: isosorbide mononitrate ER 30 mg Tablet 15 MG PO ×2 (08:32→17:32)
[2020-10-01] MEDS: clopidogrel 75 mg Tablet PO (08:32)
[2020-10-01] MEDS: FUROsemide 40 mg Tablet 80 MG PO ×2 (08:32→15:10)
[2020-10-01] MEDS: losartan 50 mg Tablet 100 MG PO (08:32)
[2020-10-01] MEDS: aspirin 81 mg EC Tablet PO (09:07)
[2020-10-01 11:01] LABS: Glucose Point of Care 187 mg/dL (70-110)
--- NOTE | 2020-10-01 14:11 | PC.NURSE ---
PER DR. DE LEON THIS MORNING, PLEASE BLADDER SCAN PATIENT NEEDED AND IF BLADDER MORE THAN 250ML FULL, PLEASE STRAIGHT CATH. BLADDER SCANNED AT 1330, PATIENT NOTED TO HAVE 260ML OF URINE. STRAIGHT CATHED PATIENT, [address] SIMPSON NOTIFIED. ORDERED BLADDER SCAN Q6H.
--- NOTE | 2020-10-01 15:18 | P.PN_ITS ---
Subjective Subjective: Interval history: Patient tolerated dialysis yesterday. Since then has only made about 200 cc of urine. No new clinical events other than this overnight. Was sitting up in chair without any discomfort. No fever, chills, nausea vomiting. Awaiting placement Medications: Reviewed: Yes Medication Review Details: Current Medications Acetaminophen (Acetaminophen 325 Mg Tablet) 650 mg PO BEDTIME PRN PRN Reason: MILD PAIN Last Admin: 09/24/20 10:40 Dose: 650 mg Documented by: Albuterol Sulfate (Albuterol 2.5 Mg/0.5 Ml Neb) 2.5 mg INHALATION Q4H.RESPIRATORY PRN PRN Reason: SHORTNESS OF BREATH Alprazolam (Alprazolam 0.25 Mg Tablet) 0.25 mg PO TID PRN PRN Reason: ANXIETY Aspirin (Aspirin 81 Mg Ec Tablet) 81 mg PO DAILY [facility] Last Admin: 09/30/20 08:43 Dose: 81 mg Documented by: Atorvastatin Calcium (Atorvastatin 40 Mg Tablet) 40 mg PO BEDTIME [facility] Last Admin: 09/30/20 21:16 Dose: 40 mg Documented by: Atropine Sulfate (Atropine 1 Mg/Ml Sdv 1 Ml) 0.5 mg IVP PRN PRN PRN Reason: Symptomatic bradycardia Carvedilol (Carvedilol 3.125 Mg Tablet) 3.125 mg PO BID@ [facility] Last Admin: 09/30/20 21:17 Dose: 3.125 mg Documented by: Clopidogrel Bisulfate (Clopidogrel 75 Mg Tablet) 75 mg PO DAILY [facility] Last Admin: 09/30/20 08:43 Dose: 75 mg Documented by: Dextrose (Dextrose 50% Syringe 50 Ml) 25 ml IVP ONCE PRN; Protocol PRN Reason: hypoglycemia protocol Dextrose (Dextrose 50% Syringe 50 Ml) 50 ml IVP PRN PRN; Protocol PRN Reason: hypoglycemia protocol Diphenhydramine HCl (Diphenhydramine 25 Mg Capsule) 25 mg PO BEDTIME PRN PRN Reason: INSOMNIA Last Admin: 09/30/20 21:17 Dose: 25 mg Documented by: Enoxaparin Sodium (Enoxaparin 30 Mg/0.3 Ml Syringe) 30 mg SUBCUT Q24H [facility] Last Admin: 09/30/20 17:26 Dose: 30 mg Documented by: Furosemide (Furosemide 40 Mg Tablet) 80 mg PO BID@,16 [facility] Last Admin: 09/30/20 16:47 Dose: 80 mg Documented by: Glucagon (Glucagon 1 Mg/Ml Inj 1 Ml) 1 mg IM ONCE PRN; Protocol PRN Reason: Adult Acute Hypoglycemia Prot. Hydrocortisone (Hydrocortisone 1% Cream 28 Gm) 1 applic TOPICAL BID [facility] Last Admin: 09/30/20 17:27 Dose: 1 applic Documented by: Dextrose (D5w) 500 mls @ 100 mls/hr IV ONCE PRN; Protocol PRN Reason: Adult Acute Hypoglycemia Prot Sodium Chloride (Sodium Chloride 0.9%) 1,000 mls @ 0 mls/hr IV .Q0M PRN PRN Reason: hypotension or symptomatic Albumin Human (Albumin) 12.5 gm in 50 mls @ 60 mls/hr IV PRN PRN PRN Reason: Hypotension and/or symptomatic Ceftriaxone Sodium 1,000 mg/ (Sodium Chloride) 50 mls @ 100 mls/hr IV Q24H [facility]; Protocol Last Infusion: 09/30/20 21:47 Dose: Infused Documented by: Insulin Aspart (Insulin Aspart 100 Unit/1 Ml) 0 unit SUBCUT WM&BEDTIME [facility]; Protocol Last Admin: 10/01/20 07:06 Dose: Not Given Documented by: Insulin Detemir (Insulin Detemir 100 Units/1 Ml) 25 unit SUBCUT BEDTIME@2100 [facility] Last Admin: 09/30/20 21:28 Dose: 25 unit Documented by: Isosorbide Mononitrate (Isosorbide Mononitrate Er 30 Mg Tablet) 15 mg PO DAILY [facility] Last Admin: 09/30/20 08:41 Dose: 15 mg Documented by: Lactulose (Lactulose Oral Liq 20 Gm/30 Ml Udc) 20 gm PO Q6H JT Last Admin: 10/01/20 06:06 Dose: 20 gm Documented by: Losartan Potassium (Losartan 50 Mg Tablet) 100 mg PO DAILY [facility] Last Admin: 09/30/20 08:43 Dose: 100 mg Documented by: Multivitamins (G-Riakgmf-Afdtevs C Tablet) 1 each PO DAILY [facility] Last Admin: 09/30/20 08:41 Dose: 1 each Documented by: Naloxone HCl (Naloxone 0.4 Mg/Ml Sdv) 0.1 mg IVP Q2M PRN PRN Reason: RESPIRATORY RATE < 8/MIN Nitroglycerin (Nitroglycerin 0.4 Mg Sublingual Tablet) 0.4 mg SUBLINGUAL Q5M PRN PRN Reason: CHEST PAIN Nystatin (Nystatin Powder 15 Gm Btl) 1 applic TOPICAL BID [facility] Last Admin: 09/30/20 17:10 Dose: Not Given Documented by: Ondansetron HCl (Ondansetron 2 Mg/Ml Sdv 2 Ml) 4 mg IVP Q6H PRN PRN Reason: NAUSEA AND VOMITING Polyethylene Glycol (Polyethylene Glycol 3350 Pkt 17 Gm) 17 gm PO DAILY [facility] Last Admin: 09/30/20 09:18 Dose: Not Given Documented by: Senna/Docusate Sodium (Sennosides-Docusate Tablet) 1 tab PO DAILY [facility] Last Admin: 09/30/20 09:18 Dose: Not Given Documented by: Sertraline HCl (Sertraline 50 Mg Tablet) 50 mg PO BEDTIME [facility] Last Admin: 09/30/20 21:17 Dose: 50 mg Documented by: Sevelamer Carbonate (Sevelamer 800 Mg Tablet) 800 mg PO BID [facility] Last Admin: 09/30/20 17:26 Dose: 800 mg Documented by: Tramadol HCl (Tramadol 50 Mg Tablet) 50 mg PO Q8H PRN PRN Reason: MODERATE PAIN Last Admin: 09/30/20 17:34 Dose: 50 mg Documented by: Vitals/I&O/Wt Last Vital Signs Temp 98.0 F 10/01/20 11:49 Pulse 67 10/01/20 11:49 Resp 18 10/01/20 11:49 BP 154/63 10/01/20 11:49 Pulse Ox 93 10/01/20 11:49 10/01/20 10/01/20 10/01/20 06:59 14:59 22:59 Intake Total 100 / 1050 140 / 140 Output Total 200 / 200 Balance 100 / 1000 -60 / -60 Weight last 48 hrs Weight 104.372 kg Weight 104.326 kg Physical Exam Narrative: EXAM NARRATIVE: GEN: Awake, alert and oriented, no acute distress CVS: S1S2 N RS: Reduced air entry LLL Abd: Soft, nt/nd , bs+ PATTERN MECHANIC: no focal neuro deficits Skin; Temp HD cath site - stable Urinary Catheter Management^: Jesus: Cath Placed During This Visit: yes, but has since been removed by the nurse Reason for Continuing Indwelling Catheter: Accurate Measurement of Urinary Output in Critically Ill Patients Urinary Catheter Date of Insertion: 09/15/20 Urinary Catheter Time of Insertion: 14:26 Date Urinary Catheter Removed: 09/30/20 Time Urinary Catheter Discontinued: 15:00 Data : 10/01/20 04:44 10/01/20 04:44 Micro: Microbiology 09/28/20 08:15 Wound Culture - Final Neck A&P Assessment and plan (1) CAD (coronary artery disease): CAD S/P Stent ( Mid LAD ) ( Patient underwent Resolute DINA drug-eluting stent placement to mid LAD (2.75 x 15 mm) after IFR was found to be 0.84) Mild disease in right coronary artery and circumflex artery.OM1 is a small artery and appears occluded proximally. Plan for medical management for that. Continue Aspirin, Plavix 75 mg po daily as well as statin. as well as IMDUR 15 mg po daily No change to management Status: Acute Qualifiers: Coronary Disease-Associated Artery/Lesion type: [place] artery [place] vs. transplanted heart: [place] heart Associated angina: without angina Qualified Code(s): I25.10 - Atherosclerotic heart disease of [place] coronary artery without angina pectoris (2) Acute kidney injury superimposed on CKD: JOSE LUIS ON WORSEING CKD stage 4 :2/2 Diabetic Nephropathy/CRS Baseline cr 1.8-2.2.Increased to 4 with BUN :94.Though currently she has no uremic symptoms. currently diuresing well with lasix 80 mg q12 h daily tunneled catheter ( 09/25),H/D Initiation : 09/26. - > M/WF Rt I.J Catheter Site has erythema as well as blistering.blood Culture from catheter: Negative She has been given i.v vanc as well as topical,gentamicin ointment was being applied.Now it has been switched to Hydrocortisone cream thinking allergic reaction. She has to follow as outpatient for possible continued dialysis v/s renal recovery. Appreciate nephrology recommendations. Cath site appears stable Status: Acute (3) Acute exacerbation of CHF (congestive heart failure): Initially on Lasix 80 mg IV every 12 hours + metolazone 5mg po daily. Lasix however very minimal urine output Losartan 100 mg po daily Prior Echocardiogram Normal left ventricular cavity size and markedly increased wall thickness. Severe concentric left ventricular hypertrophy. Mildly decreased decreased left ventricular systolic function.. Left ventricular ejection fraction is estimated at 45-50 %. Grade II diastolic dysfunction, moderately elevated filling pressures. 2D echo with contrast: 3/31 : Mildly decreased left ventricle systolic function. Left ventricle ejection fraction is estimated at 45 to 50%.There seems to be mild hypokinesis of mid to apical anterolateral and basal inferolateral plascencia. Stress test: 09/24: Large sized perfusion abnormality of moderate severity in inferior and lateral plascencia with reversibility noted in entire anterior, mid to apical inferior and mid to apical inferolateral plascencia. This may represent ischemia in multivessel territories. However in absence of prone imaging, breast attenuation artifact cannot be completely ruled out. The left ventricular ejection fraction is mildly reduced with a value of 48%. There has been Drop in E.F as compared to prior Echo. Appreciate Cardiology Recommendations Also reports a past medical history of sleep apnea, does not use CPAP consistently at home, will order for hospital use and encourage compliance at home Oxygen requirements improving, at rest is saturating 92 to 93% on room air, saturation dropped to 89% with minimal exertion, requires 1 to 2 L supplemental O2 in this case. Will need to continue PRN o2 as facility Status: Acute Qualifiers: Heart failure type: combined systolic and diastolic Qualified Code(s): I50.43 - Acute on chronic combined systolic (congestive) and diastolic (congestive) heart failure (4) Anemia: MORAIMA . Completed Venofer 200 MG IV * 5 Doses Status: Acute Qualifiers: Anemia type: unspecified type Qualified Code(s): D64.9 - Anemia, unspecified (5) Hypertensive urgency: This is now resolved Continue carvedilol 12.5 p.o. twice daily, amlodipine 10 mg p.o. daily In the evening hours systolic blood pressure trending up to 1 70-1 80 systolic subsequent days. Add Imdur 15 mg p.o. daily in the afternoon and monitor for response Status: Acute (6) Elevated troponin: negative serial delta, no acute changes on EKG, less concerning for AMI reports stess test and angigram perfromed in Jun 2019 at [facility], records requested , not received yet started on asa 81mg po daily primary prevention 10 year ASCVD risk score 34%--> started atorvastatin Echocardiogram as noted above, follow-up as outpatient Status: Acute (7) Pleural effusion, left: Persistent since 04/2020, less likely consolidative process underlying CT chest without any underlying masses or consolidation, no current indication for antibiotics thoracentesis in am given ongoing pleuritic pain and persisting dyspnea in spite of improving pulm edema and CHF otherwise. S/P lt thoracentesis ( 600 cc straw colored Transduative fluid removed ) Status: Acute (8) Hypoxia: Significanlty improved Fluid removal during HD Supplemental o2 as needed CT chest with persistent pleural effusion Status: Acute (9) Asymptomatic bacteriuria: Patient has chronic asymptomatic bacteriuria. Urine culture with Enterococcus durans noted, likely to be a colonizer. Denies dysuria, frequency. Started on amoxicillin per nephrology, completed short course of 3 days. No current evidence of infectious process. Status: Acute Additional A&P Information + D dimer with hypoxia: Cannot obtain CTA chest to avoid contrast injury in CKD, V/q scan may not be revealing in the presence of left pleural effusion and CHF, lower extremity Doppler negative for DVT, lower suspicion for PE. Respiratory status stable Dispo: Home with HH vs SNF when ready, PT recommendatiosn appreciated DVT prophylaxis: Lovenox Full code Attestations Medical Necessity Statement*: Further hospitalization for management of renal failure on HD and awaiting placeement Time Spent in Patient Care: Greater than 35 minutes (>than 50% of time spent in counselling and/or direct pt care on unit) . Coding Level of Care Code Acute [employer] for Chg Fwd Diagnoses CAD (coronary artery disease) I25.10 Coronary Disease-Associated Artery/Lesion type: [place] artery [place] vs. transplanted heart: [place] heart Associated angina: without angina Acute kidney injury superimposed on CKD N17.9; N18.9 Acute exacerbation of CHF (congestive heart failure) I50.43 Heart failure type: combined systolic and diastolic Anemia D64.9 Anemia type: unspecified type Hypertensive urgency I16.0 Elevated troponin R77.8 Pleural effusion, left J90 Hypoxia R09.02 Asymptomatic bacteriuria R82.71
[2020-10-01 16:56] LABS: Glucose Point of Care 91 mg/dL (70-110)
--- NOTE | 2020-10-01 17:17 | P.PN_ITS ---
Subjective Subjective: Interval history: No new complaints.Awaiting placement Medications: Reviewed: Yes Medication Review Details: Current Medications Acetaminophen (Acetaminophen 325 Mg Tablet) 650 mg PO BEDTIME PRN PRN Reason: MILD PAIN Last Admin: 09/24/20 10:40 Dose: 650 mg Documented by: Albuterol Sulfate (Albuterol 2.5 Mg/0.5 Ml Neb) 2.5 mg INHALATION Q4H.RESPIRATORY PRN PRN Reason: SHORTNESS OF BREATH Alprazolam (Alprazolam 0.25 Mg Tablet) 0.25 mg PO TID PRN PRN Reason: ANXIETY Aspirin (Aspirin 81 Mg Ec Tablet) 81 mg PO DAILY [facility] Last Admin: 09/30/20 08:43 Dose: 81 mg Documented by: Atorvastatin Calcium (Atorvastatin 40 Mg Tablet) 40 mg PO BEDTIME [facility] Last Admin: 09/29/20 21:20 Dose: 40 mg Documented by: Atropine Sulfate (Atropine 1 Mg/Ml Sdv 1 Ml) 0.5 mg IVP PRN PRN PRN Reason: Symptomatic bradycardia Carvedilol (Carvedilol 3.125 Mg Tablet) 3.125 mg PO BID@ [facility] Last Admin: 09/30/20 08:41 Dose: 3.125 mg Documented by: Clopidogrel Bisulfate (Clopidogrel 75 Mg Tablet) 75 mg PO DAILY [facility] Last Admin: 09/30/20 08:43 Dose: 75 mg Documented by: Dextrose (Dextrose 50% Syringe 50 Ml) 25 ml IVP ONCE PRN; Protocol PRN Reason: hypoglycemia protocol Dextrose (Dextrose 50% Syringe 50 Ml) 50 ml IVP PRN PRN; Protocol PRN Reason: hypoglycemia protocol Diphenhydramine HCl (Diphenhydramine 25 Mg Capsule) 25 mg PO BEDTIME PRN PRN Reason: INSOMNIA Last Admin: 09/29/20 21:05 Dose: 25 mg Documented by: Enoxaparin Sodium (Enoxaparin 30 Mg/0.3 Ml Syringe) 30 mg SUBCUT Q24H [facility] Last Admin: 09/30/20 17:26 Dose: 30 mg Documented by: Furosemide (Furosemide 40 Mg Tablet) 80 mg PO BID@08,16 [facility] Last Admin: 09/30/20 16:47 Dose: 80 mg Documented by: Glucagon (Glucagon 1 Mg/Ml Inj 1 Ml) 1 mg IM ONCE PRN; Protocol PRN Reason: Adult Acute Hypoglycemia Prot. Hydrocortisone (Hydrocortisone 1% Cream 28 Gm) 1 applic TOPICAL BID [facility] Last Admin: 09/30/20 17:27 Dose: 1 applic Documented by: Dextrose (D5w) 500 mls @ 100 mls/hr IV ONCE PRN; Protocol PRN Reason: Adult Acute Hypoglycemia Prot Sodium Chloride (Sodium Chloride 0.9%) 1,000 mls @ 0 mls/hr IV .Q0M PRN PRN Reason: hypotension or symptomatic Albumin Human (Albumin) 12.5 gm in 50 mls @ 60 mls/hr IV PRN PRN PRN Reason: Hypotension and/or symptomatic Ceftriaxone Sodium 1,000 mg/ (Sodium Chloride) 50 mls @ 100 mls/hr IV Q24H [facility]; Protocol Last Infusion: 09/30/20 00:28 Dose: Infused Documented by: Insulin Aspart (Insulin Aspart 100 Unit/1 Ml) 0 unit SUBCUT WM&BEDTIME [facility]; Protocol Last Admin: 09/30/20 17:10 Dose: Not Given Documented by: Insulin Detemir (Insulin Detemir 100 Units/1 Ml) 25 unit SUBCUT BEDTIME@2100 [facility] Last Admin: 09/29/20 21:09 Dose: 25 unit Documented by: Isosorbide Mononitrate (Isosorbide Mononitrate Er 30 Mg Tablet) 15 mg PO DAILY [facility] Last Admin: 09/30/20 08:41 Dose: 15 mg Documented by: Lactulose (Lactulose Oral Liq 20 Gm/30 Ml Udc) 20 gm PO Q6H [facility] Last Admin: 09/30/20 17:32 Dose: Not Given Documented by: Losartan Potassium (Losartan 50 Mg Tablet) 100 mg PO DAILY [facility] Last Admin: 09/30/20 08:43 Dose: 100 mg Documented by: Multivitamins (C-Vsibhhf-Qlohvrv C Tablet) 1 each PO DAILY [facility] Last Admin: 09/30/20 08:41 Dose: 1 each Documented by: Naloxone HCl (Naloxone 0.4 Mg/Ml Sdv) 0.1 mg IVP Q2M PRN PRN Reason: RESPIRATORY RATE < 8/MIN Nitroglycerin (Nitroglycerin 0.4 Mg Sublingual Tablet) 0.4 mg SUBLINGUAL Q5M PRN PRN Reason: CHEST PAIN Nystatin (Nystatin Powder 15 Gm Btl) 1 applic TOPICAL BID [facility] Last Admin: 09/30/20 17:10 Dose: Not Given Documented by: Ondansetron HCl (Ondansetron 2 Mg/Ml Sdv 2 Ml) 4 mg IVP Q6H PRN PRN Reason: NAUSEA AND VOMITING Polyethylene Glycol (Polyethylene Glycol 3350 Pkt 17 Gm) 17 gm PO DAILY [facility] Last Admin: 09/30/20 09:18 Dose: Not Given Documented by: Senna/Docusate Sodium (Sennosides-Docusate Tablet) 1 tab PO DAILY [facility] Last Admin: 09/30/20 09:18 Dose: Not Given Documented by: Sertraline HCl (Sertraline 50 Mg Tablet) 50 mg PO BEDTIME [facility] Sevelamer Carbonate (Sevelamer 800 Mg Tablet) 800 mg PO BID [facility] Last Admin: 09/30/20 17:26 Dose: 800 mg Documented by: Tramadol HCl (Tramadol 50 Mg Tablet) 50 mg PO Q8H PRN PRN Reason: MODERATE PAIN Last Admin: 09/30/20 17:34 Dose: 50 mg Documented by: Vitals/I&O/Wt Last Vital Signs Temp 97.8 F 10/01/20 15:25 Pulse 71 10/01/20 15:25 Resp 21 H 10/01/20 15:25 BP 179/90 10/01/20 15:25 Pulse Ox 93 10/01/20 15:25 10/01/20 10/01/20 10/01/20 06:59 14:59 22:59 Intake Total 100 / 1050 140 / 140 Output Total 200 / 200 Balance 100 / 1000 -60 / -60 Weight last 48 hrs Weight 230 lb 1.6 oz Weight 230 lb Physical Exam Narrative: EXAM NARRATIVE: GENERAL: Obese woman sitting in bed in no acute distress HEENT: Extraocular movement intact. Pupils equal round reactive to light. No pallor or icterus. NECK: central trachea, no JVD appreciated Chest: Right upper chest wall tunneled hemodialysis catheter in place; appears erythematous CARDIOVASCULAR SYSTEM: S1-S2 regular. No murmur rubs or gallops. RESPIRATORY SYSTEM: Decreased breath sounds left basal lung franklin> right. no wheezes rhonchi heard. ABDOMEN: Soft, nontender and nondistended. Normal bowel sounds present. EXTREMITIES: No cyanosis or clubbing. trace-1+ edema bilaterally. YANNA stocking in place MUSIC PRODUCER: Patient is alert oriented ?3. No focal neurological deficits. Const: COMMON NORMALS: no acute distress, patient oriented x3 and alert GENERAL APPEARANCE: cooperative, comfortable, well kempt and well hydrated NUTRITIONAL APPEARANCE: obese HENMT: COMMON NORMALS: normocephalic, atraumatic, hearing grossly normal bilaterally and external ears normal HEAD & SCALP: normocephalic and atraumatic FACE & SINUS: normal facial exam EXTERNAL EAR: Yes external ears normal Eye: COMMON NORMALS: Equal, round and reactive pupils present, EOMs intact bilaterally, conjunctivae normal and no scleral icterus GENERAL EYE: appearance normal, both eyes and all related structures ALIGNMENT: Yes alignment normal EYELID: eyelids normal CONJUNCTIVA: Yes conjunctivae no rmal SCLERA: sclerae normal PUPIL: Yes Equal, round and reactive pupils present Neck/C-Spine: COMMON NORMALS: supple and no JVD GENERAL: Yes normal visual inspection, Yes trachea midline and No Mass present (neck) CAROTIDS: Yes normal carotid upstroke CERVICAL SPINE: Yes cervical ROM normal Chest: COMMONS NORMALS: normal inspection of the chest and normal palpation of entire chest wall CHEST: Yes Symmetrical chest wall rise and No tenderness Resp: COMMON NORMALS: clear to auscultation bilaterally (decreased breath sound at bases) EFFORT & INSPECTION: Yes able to speak in complete sentences AUSCULTATION: clear to auscultation bilaterally (decreased breath sound at bases), no crackles, no rales, no rhonchi, no wheezes and vesicular breath sounds Cardio: COMMON NORMALS: no JVD, regular rate, regular rhythm, S1 normal heart sound present, S2 normal heart sound present and Peripheral pulses 2+ throughout PALPATION: normal PMI RATE: regular rate RHYTHM: regular rhythm HEART SOUNDS: S1 normal heart sound present, S2 normal heart sound present, no gallops and Murmur heart sound present systolic BRUITS: no carotid bruits PERIPHERAL PULSES: Peripheral pulses 2+ throughout, radial pulses present, posterior tibial pulses present and dorsalis pedis present GI: COMMON NORMALS: Soft to palpation and No hepatosplenomegaly present AUSCULTATION: Yes normoactive bowel sounds PALPATION: Yes Soft to palpation, No Tenderness to palpation present (GI), No Guarding due to palpation present (GI), No Rigid due to palpation, Yes No hepatosplenomegaly present and No Ascites present PERCUSSION: tympanic to percussion Extremity: GENERAL: No calf tenderness, No clubbing, No cyanosis, Yes edema and No pallor Neuro: COMMON NORMALS: patient oriented x3, CN's II-XII intact bilaterally, no focal motor deficits and gait normal SENSORIUM/ORIENTATION: Yes alert Psych: COMMON NORMALS: Normal thought process present and speech normal APPEARANCE: Yes well kempt SPEECH: Yes normal speech MOOD & AFFECT: Yes eu thymic mood THOUGHT PROCESS: Normal thought process present THOUGHT CONTENT: Yes Normal thought content present Skin: HAIR: normal NAILS: normal and no clubbing Urinary Catheter Management^: Jesus: Cath Placed During This Visit: yes, but has since been removed by the nurse Reason for Continuing Indwelling Catheter: Accurate Measurement of Urinary Output in Critically Ill Patients Urinary Catheter Date of Insertion: 09/15/20 Urinary Catheter Time of Insertion: 14:26 Date Urinary Catheter Removed: 09/30/20 Time Urinary Catheter Discontinued: 15:00 Data : 10/01/20 04:44 10/01/20 04:44 Micro: Microbiology 09/28/20 08:15 Wound Culture - Final Neck A&P Assessment and plan (1) CAD (coronary artery disease): S/p mid LAD DOT; mild disease in right coronary artery and circumflex artery. OM1 is a small artery and appears occluded proximally. Plan for medical management for that -Continue aspirin, Plavix and statin. -Imdur 15 mg twice a day. Remains chest pain-free. No arrhythmia on telemetry. -Plan for discharge per primary team. -f/u in 1 month with me on discharge. Status: Acute Qualifiers: Associated angina: without angina Coronary Disease-Associated Artery/Lesion type: [place] artery [place] vs. transplanted heart: [place] heart Qualified Code(s): I25.10 - Atherosclerotic heart disease of [place] coronary artery without angina pectoris (2) Acute exacerbation of CHF (congestive heart failure): -Heart failure with midrange EF (LVEF 45 to 50%) -currently on losartan and coreg. -Continue Lasix Status: Acute Qualifiers: Heart failure type: combined systolic and diastolic Qualified Code(s): I50.43 - Acute on chronic combined systolic (congestive) and diastolic (congestive) heart failure (3) Hypertension: May increase imdur to 30 mg if BP runs high Status: Acute Qualifiers: Hypertension type: essential hypertension Qualified Code(s): I10 - Essential (primary) hypertension (4) Diabetes: Status: Acute Qualifiers: Diabetes mellitus complication detail: with polyneuropathy Diabetes mellitus complication status: with neurologic complications Diabetes mellitus shelter insulin use: with nursing unit coordinator use Diabetes mellitus type: type 2 Qualified Code(s): E11.42 - Type 2 diabetes mellitus with diabetic polyneuropathy; Z79.4 - [facility] (current) use of insulin (5) CKD (chronic kidney disease): Status: Acute Qualifiers: Chronic kidney disease stage: unspecified stage Qualified Code(s): N18.9 - Chronic kidney disease, unspecified (6) Acute kidney injury: JOSE LUIS on CKD. -S/p tunneled dialysis catheter placement and hemodialysis -Concern for infection at site of permacath. On antibiotics per primary and nephrology teams - Status: Acute Additional A&P Information Hyperlipidemia: Calculated LDL greater than 120 with goal LDL of less than 70. Anemia: Hemoglobin stable Thrombocytosis s/p left thoracentesis Normocytic anemia H/o gastritis Thank you for allowing me to participate in patient's care. Please feel free to call with questions or concerns. Attestations Medical Necessity Statement*: As per primary team Time Spent in Patient Care: 16 - 35 minutes (>than 50% of time spent in counselling and/or direct pt care on unit) . Coding Level of Care Code Acute Country Manager for Chg Fwd Exam Comprehensive Diagnoses CAD (coronary artery disease) I25.10 Associated angina: without angina Coronary Disease-Associated Artery/Lesion type: [place] artery [place] vs. transplanted heart: [place] heart Acute exacerbation of CHF (congestive heart failure) I50.43 Heart failure type: combined systolic and diastolic Hypertension I10 Hypertension type: essential hypertension Diabetes E11.42; Z79.4 Diabetes mellitus complication detail: with polyneuropathy Diabetes mellitus complication status: with neurologic complications Diabetes mellitus shelter insulin use: with shelter use Diabetes mellitus type: type 2 CKD (chronic kidney disease) N18.9 Chronic kidney disease stage: unspecified stage Acute kidney injury N17.9
[2020-10-01] MEDS: enoxaparin 30 mg/0.3 mL Syringe SUBCUT (17:34)
[2020-10-01] MEDS: TRAMadol 50 mg Tablet PO (20:05)
[2020-10-01 20:44] LABS: Glucose Point of Care 146 mg/dL (70-110)
[2020-10-01] MEDS: ALPRAZolam 0.25 mg Tablet PO (20:50)
[2020-10-01] MEDS: acetaminophen 325 mg Tablet 650 MG PO (20:50)
[2020-10-01] MEDS: atorvastatin 40 mg Tablet PO (20:50)
[2020-10-01] MEDS: sertraline 50 mg Tablet PO (20:51)
[2020-10-01] MEDS: diphenhydrAMINE 25 mg Capsule PO (20:57)
[2020-10-01] MEDS: cefTRIAXone 1,000 MG in sodium chloride 0.9% (plus) 50 ML 100 MG IV (20:57)
[2020-10-02] VITALS (9 sets, daily range): BP systolic 118–173; BP diastolic 58–85; PULSE 58–70; RESP 18–24; TEMP 36.4–37.2; O2SAT 89–92
[2020-10-02 05:37] LABS: Basophils # 0.1 10^3/uL (0.0-0.1); Basophils % 1.1 %; Eosinophils # 0.6 10^3/uL (0.0-0.8); Hematocrit 30.7 % (37.0-47.0); Hemoglobin 9.4 g/dL (11.5-15.3); Lymphocytes # 2.2 10^3/uL (0.8-4.8); Lymphocytes % 17.3 %; Mean Corpuscular HGB Conc 30.6 g/dL (30.0-36.0); Mean Corpuscular Hemoglobin 26.6 pg (28.0-34.0); Mean Platelet Volume 10.8 fL (7.4-10.4); Monocytes # 1.6 10^3/uL (0.2-0.9); Monocytes % 12.8 %; Neutrophils % 62.6 %; Nucleated Red Blood Cells % 0 %; Platelet Count 560 10^3/cmm (130-400); Red Blood Count 3.53 10^6/uL (4.1-5.3); White Blood Count 12.6 10^3/uL (4.0-10.0)
[2020-10-02 05:53] LABS: Alanine Aminotransferase < 5 U/L (0-33); Albumin Level 2.7 g/dL (3.5-5.2); Alkaline Phosphatase 64 IU/L (35-105); Anion Gap 10.9 (5-19); Aspartate Amino Transferase 14 U/L (0-32); Blood Urea Nitrogen 32 mg/dL (8-23); Calcium 8.4 mg/dL (8.5-10.5); Carbon Dioxide 28 mmol/L (22-29); Chloride 99 mmol/L (98-107); Globulin 2.7 g/dL (1.3-4.6); Glucose 47 mg/dL (65-115); Magnesium 1.9 mg/dL (1.7-2.3); Osmolality Calculated 282 mOsm/kg (285-295); Phosphorus 3.6 mg/dL (2.5-4.5); Potassium 3.9 mmol/L (3.5-5.1); Sodium 134 mmol/L (136-145); Total Bilirubin 0.2 mg/dL (0.15-1.2); Total Protein 5.4 g/dL (6.6-8.7)
--- NOTE | 2020-10-02 07:00 | PC.NURSE ---
Received bedside report from BETTY Pichardo. Patient was resting in bed with no complaints. Nurse will continue to monitor.
[2020-10-02 07:19] LABS: Glucose Point of Care 52 mg/dL (70-110)
[2020-10-02] MEDS: TRAMadol 50 mg Tablet PO (07:35)
[2020-10-02] MEDS: FUROsemide 40 mg Tablet 80 MG PO (07:35)
--- NOTE | 2020-10-02 07:48 | PC.NURSE ---
Patients blood sugar was 52 this morning, pt was asymptomatic. Patient was given 4oz of juice per protocol and a cheese stick, blood sugar was rechecked and improved to 81. Nurse will continue to monitor.
[2020-10-02 08:37] LABS: Glucose Point of Care 81 mg/dL (70-110)
[2020-10-02] MEDS: losartan 50 mg Tablet 100 MG PO (09:36)
[2020-10-02] MEDS: clopidogrel 75 mg Tablet PO (09:36)
[2020-10-02] MEDS: sennosides-docusate Tablet 1 TAB PO (09:39)
[2020-10-02] MEDS: isosorbide mononitrate ER 30 mg Tablet 15 MG PO ×2 (09:39→17:58)
[2020-10-02] MEDS: b-complex-vitamin c Tablet 1 EACH PO (09:39)
[2020-10-02] MEDS: sevelamer 800 mg Tablet PO ×2 (09:39→17:59)
[2020-10-02] MEDS: aspirin 81 mg EC Tablet PO (09:39)
--- NOTE | 2020-10-02 09:44 | P.PN_ITS ---
Subjective Subjective: Interval history: She feels well and is due to get dialysis today. Medications: Reviewed: Yes Vitals/I&O/Wt Last Vital Signs Temp 97.9 F 10/03/20 08:00 Pulse 64 10/03/20 09:30 Resp 19 H 10/03/20 08:00 BP 143/73 10/03/20 08:00 Pulse Ox 93 10/03/20 09:30 10/02/20 10/03/20 10/03/20 22:59 06:59 14:59 Intake Total 720 / 1080 50 / 1130 240 / 240 Output Total 200 / 200 Balance 720 / 1080 -150 / 930 240 / 240 Weight last 48 hrs Weight 223 lb 1.6 oz Weight 223 lb 8 oz Physical Exam Narrative: EXAM NARRATIVE: GENERAL: Obese woman sitting in bed in no acute distress HEENT: Extraocular movement intact. Pupils equal round reactive to light. No pallor or icterus. NECK: central trachea, no JVD appreciated Chest: Right upper chest wall tunneled hemodialysis catheter in place; appears erythematous CARDIOVASCULAR SYSTEM: S1-S2 regular. No murmur rubs or gallops. RESPIRATORY SYSTEM: Decreased breath sounds left basal lung franklin> right. no wheezes rhonchi heard. ABDOMEN: Soft, nontender and nondistended. Normal bowel sounds present. EXTREMITIES: No cyanosis or clubbing. trace-1+ edema bilaterally. YANNA stocking in place; right radial access site with no bruising or hematoma and 2+ radial RAILWAY SIGNAL OPERATOR: Patient is alert oriented ?3. No focal neurological deficits. Urinary Catheter Management^: Jesus: Cath Placed During This Visit: yes, but has since been removed by the nurse Reason for Continuing Indwelling Catheter: Accurate Measurement of Urinary Output in Critically Ill Patients Urinary Catheter Date of Insertion: 09/15/20 Urinary Catheter Time of Insertion: 14:26 Date Urinary Catheter Removed: 09/30/20 Time Urinary Catheter Discontinued: 15:00 Data : 10/03/20 04:43 10/03/20 04:43 A&P Assessment and plan (1) CAD (coronary artery disease): S/p mid LAD DOT; mild disease in right coronary artery and circumflex artery. OM1 is a small artery and appears occluded proximally. Plan for medical management for that -Continue aspirin, Plavix and statin. -Imdur 15 mg twice a day. Remains chest pain-free. No arrhythmia on telemetry. -Plan for discharge per primary team. -f/u in 1 month with me on discharge. I will sign off. Status: Acute Qualifiers: Coronary Disease-Associated Artery/Lesion type: [place] artery [place] vs. transplanted heart: [place] heart Associated angina: without angina Qualified Code(s): I25.10 - Atherosclerotic heart disease of [place] coronary artery without angina pectoris (2) Acute exacerbation of CHF (congestive heart failure): -Heart failure with midrange EF (LVEF 45 to 50%) -currently on losartan and coreg. -Continue Lasix per nephrology. Status: Acute Qualifiers: Heart failure type: combined systolic and diastolic Qualified Code(s): I50.43 - Acute on chronic combined systolic (congestive) and diastolic (congestive) heart failure (3) Hypertension: Status: Acute Qualifiers: Hypertension type: essential hypertension Qualified Code(s): I10 - Essential (primary) hypertension (4) Diabetes: Status: Acute Qualifiers: Diabetes mellitus type: type 2 Diabetes mellitus intermission coordinator insulin use: with residential use Diabetes mellitus complication status: with neurologic complications Diabetes mellitus complication detail: with polyneuropathy Qualified Code(s): E11.42 - Type 2 diabetes mellitus with diabetic polyne uropathy; Z79.4 - [facility] (current) use of insulin (5) CKD (chronic kidney disease): Status: Acute Qualifiers: Chronic kidney disease stage: unspecified stage Qualified Code(s): N18.9 - Chronic kidney disease, unspecified (6) Acute kidney injury: JOSE LUIS on CKD. -S/p tunneled dialysis catheter placement and hemodialysis Status: Acute Additional A&P Information Hyperlipidemia: Calculated LDL greater than 120 with goal LDL of less than 70. Anemia: Hemoglobin stable Thrombocytosis s/p left thoracentesis Normocytic anemia H/o gastritis Thank you for allowing me to participate in patient's care. Please feel free to call with questions or concerns. Attestations Medical Necessity Statement*: As per primary team Time Spent in Patient Care: 16 - 35 minutes (>than 50% of time spent in counselling and/or direct pt care on unit) . Coding Level of Care Code Acute Photovoltaic Installer for Ivett Fwd Diagnoses CAD (coronary artery disease) I25.10 Coronary Disease-Associated Artery/Lesion type: [place] artery [place] vs. transplanted heart: [place] heart Associated angina: without angina Acute exacerbation of CHF (congestive heart failure) I50.43 Heart failure type: combined systolic and diastolic Hypertension I10 Hypertension type: essential hypertension Diabetes E11.42; Z79.4 Diabetes mellitus type: type 2 Diabetes mellitus residential insulin use: with residential use Diabetes mellitus complication status: with neurologic complications Diabetes mellitus complication detail: with polyneuropathy CKD (chronic kidney disease) N18.9 Chronic kidney disease stage: unspecified stage Acute kidney injury N17.9
[2020-10-02] MEDS: hydrocortisone 1% cream 28 gm 1 APPLIC TOPICAL ×2 (09:47→18:00)
[2020-10-02 11:40] LABS: Glucose Point of Care 161 mg/dL (70-110)
--- NOTE | 2020-10-02 12:12 | PM.PN ---
Subjective Subjective: Interval history: Patient continues to remain stable Minimal u/o overnight No new complaints. Medications: Reviewed: Yes Medication Review Details: Current Medications Acetaminophen (Acetaminophen 325 Mg Tablet) 650 mg PO BEDTIME PRN PRN Reason: MILD PAIN Last Admin: 09/24/20 10:40 Dose: 650 mg Documented by: Albuterol Sulfate (Albuterol 2.5 Mg/0.5 Ml Neb) 2.5 mg INHALATION Q4H.RESPIRATORY PRN PRN Reason: SHORTNESS OF BREATH Alprazolam (Alprazolam 0.25 Mg Tablet) 0.25 mg PO TID PRN PRN Reason: ANXIETY Aspirin (Aspirin 81 Mg Ec Tablet) 81 mg PO DAILY [facility] Last Admin: 09/30/20 08:43 Dose: 81 mg Documented by: Atorvastatin Calcium (Atorvastatin 40 Mg Tablet) 40 mg PO BEDTIME [facility] Last Admin: 09/29/20 21:20 Dose: 40 mg Documented by: Atropine Sulfate (Atropine 1 Mg/Ml Sdv 1 Ml) 0.5 mg IVP PRN PRN PRN Reason: Symptomatic bradycardia Carvedilol (Carvedilol 3.125 Mg Tablet) 3.125 mg PO BID@ [facility] Last Admin: 09/30/20 08:41 Dose: 3.125 mg Documented by: Clopidogrel Bisulfate (Clopidogrel 75 Mg Tablet) 75 mg PO DAILY [facility] Last Admin: 09/30/20 08:43 Dose: 75 mg Documented by: Dextrose (Dextrose 50% Syringe 50 Ml) 25 ml IVP ONCE PRN; Protocol PRN Reason: hypoglycemia protocol Dextrose (Dextrose 50% Syringe 50 Ml) 50 ml IVP PRN PRN; Protocol PRN Reason: hypoglycemia protocol Diphenhydramine HCl (Diphenhydramine 25 Mg Capsule) 25 mg PO BEDTIME PRN PRN Reason: INSOMNIA Last Admin: 09/29/20 21:05 Dose: 25 mg Documented by: Enoxaparin Sodium (Enoxaparin 30 Mg/0.3 Ml Syringe) 30 mg SUBCUT Q24H [facility] Last Admin: 09/30/20 17:26 Dose: 30 mg Documented by: Furosemide (Furosemide 40 Mg Tablet) 80 mg PO BID@08,16 [facility] Last Admin: 09/30/20 16:47 Dose: 80 mg Documented by: Glucagon (Glucagon 1 Mg/Ml Inj 1 Ml) 1 mg IM ONCE PRN; Protocol PRN Reason: Adult Acute Hypoglycemia Prot. Hydrocortisone (Hydrocortisone 1% Cream 28 Gm) 1 applic TOPICAL BID [facility] Last Admin: 09/30/20 17:27 Dose: 1 applic Documented by: Dextrose (D5w) 500 mls @ 100 mls/hr IV ONCE PRN; Protocol PRN Reason: Adult Acute Hypoglycemia Prot Sodium Chloride (Sodium Chloride 0.9%) 1,000 mls @ 0 mls/hr IV .Q0M PRN PRN Reason: hypotension or symptomatic Albumin Human (Albumin) 12.5 gm in 50 mls @ 60 mls/hr IV PRN PRN PRN Reason: Hypotension and/or symptomatic Ceftriaxone Sodium 1,000 mg/ (Sodium Chloride) 50 mls @ 100 mls/hr IV Q24H [facility]; Protocol Last Infusion: 09/30/20 00:28 Dose: Infused Documented by: Insulin Aspart (Insulin Aspart 100 Unit/1 Ml) 0 unit SUBCUT WM&BEDTIME [facility]; Protocol Last Admin: 09/30/20 17:10 Dose: Not Given Documented by: Insulin Detemir (Insulin Detemir 100 Units/1 Ml) 25 unit SUBCUT BEDTIME@2100 [facility] Last Admin: 09/29/20 21:09 Dose: 25 unit Documented by: Isosorbide Mononitrate (Isosorbide Mononitrate Er 30 Mg Tablet) 15 mg PO DAILY [facility] Last Admin: 09/30/20 08:41 Dose: 15 mg Documented by: Lactulose (Lactulose Oral Liq 20 Gm/30 Ml Udc) 20 gm PO Q6H [facility] Last Admin: 09/30/20 17:32 Dose: Not Given Documented by: Losartan Potassium (Losartan 50 Mg Tablet) 100 mg PO DAILY [facility] Last Admin: 09/30/20 08:43 Dose: 100 mg Documented by: Multivitamins (R-Dzxpcfb-Wwzcfiy C Tablet) 1 each PO DAILY [facility] Last Admin: 09/30/20 08:41 Dose: 1 each Documented by: Naloxone HCl (Naloxone 0.4 Mg/Ml Sdv) 0.1 mg IVP Q2M PRN PRN Reason: RESPIRATORY RATE < 8/MIN Nitroglycerin (Nitroglycerin 0.4 Mg Sublingual Tablet) 0.4 mg SUBLINGUAL Q5M PRN PRN Reason: CHEST PAIN Nystatin (Nystatin Powder 15 Gm Btl) 1 applic TOPICAL BID [facility] Last Admin: 09/30/20 17:10 Dose: Not Given Documented by: Ondansetron HCl (Ondansetron 2 Mg/Ml Sdv 2 Ml) 4 mg IVP Q6H PRN PRN Reason: NAUSEA AND VOMITING Polyethylene Glycol (Polyethylene Glycol 3350 Pkt 17 Gm) 17 gm PO DAILY [facility] Last Admin: 09/30/20 09:18 Dose: Not Given Documented by: Senna/Docusate Sodium (Sennosides-Docusate Tablet) 1 tab PO DAILY [facility] Last Admin: 09/30/20 09:18 Dose: Not Given Documented by: Sertraline HCl (Sertraline 50 Mg Tablet) 50 mg PO BEDTIME [facility] Sevelamer Carbonate (Sevelamer 800 Mg Tablet) 800 mg PO BID [facility] Last Admin: 09/30/20 17:26 Dose: 800 mg Documented by: Tramadol HCl (Tramadol 50 Mg Tablet) 50 mg PO Q8H PRN PRN Reason: MODERATE PAIN Last Admin: 09/30/20 17:34 Dose: 50 mg Documented by: Vitals/I&O/Wt Last Vital Signs Temp 97.6 F 10/02/20 11:01 Pulse 69 10/02/20 11:01 Resp 18 10/02/20 11:01 BP 163/75 10/02/20 11:01 Pulse Ox 89 L 10/02/20 11:01 10/01/20 10/02/20 10/02/20 22:59 06:59 14:59 Intake Total 190 / 330 200 / 530 120 / 120 Output Total 275 / 475 Balance 190 / 130 -75 / 55 120 / 120 Weight last 48 hrs Weight 101.378 kg Weight 104.372 kg Physical Exam Narrative: EXAM NARRATIVE: GEN: Awake, alert and oriented, no acute distress CVS: S1S2 N RS: Reduced air entry LLL Abd: Soft, nt/nd , bs+ AGENCY DIRECTOR: no focal neuro deficits Skin; Temp HD cath site - stable Urinary Catheter Management^: Jesus: Cath Placed During This Visit: yes, but has since been removed by the nurse Reason for Continuing Indwelling Catheter: Accurate Measurement of Urinary Output in Critically Ill Patients Urinary Catheter Date of Insertion: 09/15/20 Urinary Catheter Time of Insertion: 14:26 Date Urinary Catheter Removed: 09/30/20 Time Urinary Catheter Discontinued: 15:00 Data : 10/02/20 04:38 10/02/20 04:38 Micro: Microbiology 09/28/20 08:15 Wound Culture - Final Neck A&P Assessment and plan (1) CAD (coronary artery disease): CAD S/P Stent ( Mid LAD ) ( Patient underwent Resolute DINA drug-eluting stent placement to mid LAD (2.75 x 15 mm) after IFR was found to be 0.84) Mild disease in right coronary artery and circumflex artery.OM1 is a small artery and appears occluded proximally. Plan for medical management for that. Continue Aspirin, Plavix 75 mg po daily as well as statin. as well as IMDUR 15 mg po daily No change to management Status: Acute Qualifiers: Coronary Disease-Associated Artery/Lesion type: [place] artery [place] vs. transplanted heart: [place] heart Associated angina: without angina Qualified Code(s): I25.10 - Atherosclerotic heart disease of [place] coronary artery without angina pectoris (2) Acute kidney injury superimposed on CKD: JOSE LUIS ON WORSEING CKD stage 4 :2/2 Diabetic Nephropathy/CRS Baseline cr 1.8-2.2.Increased to 4 with BUN :94.Though currently she has no uremic symptoms. currently diuresing well with lasix 80 mg q12 h daily tunneled catheter ( 09/25),H/D Initiation : 09/26. - > M/WF Rt I.J Catheter Site has erythema as well as blistering.blood Culture from catheter: Negative She has been given i.v vanc as well as topical,gentamicin ointment was being applied.Now it has been switched to Hydrocortisone cream thinking allergic reaction. She has to follow as outpatient for possible continued dialysis v/s renal recovery. Appreciate nephrology recommendations. Cath site appears stable Status: Acute (3) Acute exacerbation of CHF (congestive heart failure): Initially on Lasix 80 mg IV every 12 hours + metolazone 5mg po daily. Lasix however very minimal urine output Losartan 100 mg po daily Prior Echocardiogram Normal left ventricular cavity size and markedly increased wall thickness. Severe concentric left ventricular hypertrophy. Mildly decreased decreased left ventricular systolic function.. Left ventricular ejection fraction is estimated at 45-50 %. Grade II diastolic dysfunction, moderately elevated filling pressures. 2D echo with contrast: 09/23 : Mildly decreased left ventricle systolic function. Left ventricle ejection fraction is estimated at 45 to 50%.There seems to be mild hypokinesis of mid to apical anterolateral and basal inferolateral plascencia. Stress test: 09/24: Large sized perfusion abnormality of moderate severity in inferior and lateral plascencia with reversibility noted in entire anterior, mid to apical inferior and mid to apical inferolateral plascencia. This may represent ischemia in multivessel territories. However in absence of prone imaging, breast attenuation artifact cannot be completely ruled out. The left ventricular ejection fraction is mildly reduced with a value of 48%. There has been Drop in E.F as compared to prior Echo. Appreciate Cardiology Recommendations Also reports a past medical history of sleep apnea, does not use CPAP consistently at home, will order for hospital use and encourage compliance at home Oxygen requirements improving, at rest is saturating 92 to 93% on room air, saturation dropped to 89% with minimal exertion, requires 1 to 2 L supplemental O2 in this case. Will need to continue PRN o2 as facility Status: Acute Qualifiers: Heart failure type: combined systolic and diastolic Qualified Code(s): I50.43 - Acute on chronic combined systolic (congestive) and diastolic (congestive) heart failure (4) Anemia: MORAIMA . Completed Venofer 200 MG IV * 5 Doses Status: Acute Qualifiers: Anemia type: unspecified type Qualified Code(s): D64.9 - Anemia, unspecified (5) Hypertensive urgency: This is now resolved Continue carvedilol 12.5 p.o. twice daily, amlodipine 10 mg p.o. daily In the evening hours systolic blood pressure trending up to 1 70-1 80 systolic subsequent days. Add Imdur 15 mg p.o. daily in the afternoon and monitor for response Status: Acute (6) Elevated troponin: negative serial delta, no acute changes on EKG, less concerning for AMI reports stess test and angigram perfromed in Jun 2019 at [facility], records requested , not received yet started on asa 81mg po daily primary prevention 10 year ASCVD risk score 34%--> started atorvastatin Echocardiogram as noted above, follow-up as outpatient Status: Acute (7) Pleural effusion, left: Persistent since 04/2020, less likely consolidative process underlying CT chest without any underlying masses or consolidation, no current indication for antibiotics thoracentesis in am given ongoing pleuritic pain and persisting dyspnea in spite of improving pulm edema and CHF otherwise. S/P lt thoracentesis ( 600 cc straw colored Transduative fluid removed ) Status: Acute (8) Hypoxia: Significanlty improved Fluid removal during HD Supplemental o2 as needed CT chest with persistent pleural effusion Status: Acute (9) Asymptomatic bacteriuria: Patient has chronic asymptomatic bacteriuria. Urine culture with Enterococcus durans noted, likely to be a colonizer. Denies dysuria, frequency. Started on amoxicillin per nephrology, completed short course of 3 days. No current evidence of infectious process. Status: Acute Additional A&P Information + D dimer with hypoxia: Cannot obtain CTA chest to avoid contrast injury in CKD, V/q scan may not be revealing in the presence of left pleural effusion and CHF, lower extremity Doppler negative for DVT, lower suspicion for PE. Respiratory status stable Dispo: Stable for discharge. Pending insurance authorization DVT prophylaxis: Lovenox Full code Attestations Medical Necessity Statement*: Patient will require ongoing hospital stay until discharge placement can be arranged. Time Spent in Patient Care: Greater than 35 minutes (>than 50% of time spent in counselling and/or direct pt care on unit). Coding Level of Care Code Acute Professor Of Journalism for g Fwd Diagnoses CAD (coronary artery disease) I25.10 Coronary Disease-Associated Artery/Lesion type: [place] artery [place] vs. transplanted heart: [place] heart Associated angina: without angina Acute kidney injury superimposed on CKD N17.9; N18.9 Acute exacerbation of CHF (congestive heart failure) I50.43 Heart failure type: combined systolic and diastolic Anemia D64.9 Anemia type: unspecified type Hypertensive urgency I16.0 Elevated troponin R77.8 Pleural effusion, left J90 Hypoxia R09.02 Asymptomatic bacteriuria R82.71
--- NOTE | 2020-10-02 17:00 | PM.PN ---
Subjective Subjective: Interval history: She is seen and examined on dialysis today. She tolerated the therapy well. Blood pressure and pulse well-maintained. Dialysis parameters reviewed. Making minimal amounts of urine, minimal extremity edema and no other hypervolemic symptoms. Medications: Reviewed: Yes Vitals/I&O/Wt Last Vital Signs Temp 97.6 F 10/02/20 11:01 Pulse 69 10/02/20 11:01 Resp 18 10/02/20 11:01 BP 163/75 10/02/20 11:01 Pulse Ox 89 L 10/02/20 11:01 10/02/20 10/02/20 10/02/20 06:59 14:59 22:59 Intake Total 200 / 530 360 / 360 Output Total 275 / 475 Balance -75 / 55 360 / 360 Weight last 48 hrs Weight 101.378 kg Weight 104.372 kg Physical Exam Narrative: EXAM NARRATIVE: Constitutional: Awake, comfortable HEENT: Wet mucosa, no jvp, non icteric Lungs: Bilaterally decreased air entry without discernible wheeze, rales in all lung zones CVS: S1 S2, no murmurs Abdo: Soft, BS ok Ext 4: Minimal edema, peripheral perfusion with no cyanosis Neurological: Grossly non-focal Urinary Catheter Management^: Jesus: Cath Placed During This Visit: yes, but has since been removed by the nurse Reason for Continuing Indwelling Catheter: Accurate Measurement of Urinary Output in Critically Ill Patients Urinary Catheter Date of Insertion: 09/15/20 Urinary Catheter Time of Insertion: 14:26 Date Urinary Catheter Removed: 09/30/20 Time Urinary Catheter Discontinued: 15:00 Data : 10/02/20 04:38 10/02/20 04:38 Micro: Microbiology 09/28/20 08:15 Wound Culture - Final Neck A&P Additional A&P Information 74 yr old female 1. Likely ESRD, to be monitored for possible recovery Continue Monday schedule Seen on dialysis today Anticipate no dialysis needs over the weekend Dose medications for GFR less than 15 on dialysis 2. Erythema adjacent to permacath - blood cx and exit site cultures were negative.x. s/p vanco 1 gm on 09/28/20. will apply local gent cream or bacitracin. Dr Ceferino flores, does not think it is infected. he feels it is a rash- recommends 1% hydrocortisone cream bid and no dressing - f/u w/ him in office in a week 3. CAD s/p LAD stent on 09/28/20. also w/ systolic CHF -it may be difficult to give the pt optimal CHF meds such as aldactone, Entresto/ or arb if we stop dialysis. Dr. Pickering and Dr. Neff can work as outpt to optimize her meds 4. anemia - iv iron and PATRIZIA w/ HD 5. HTN - controlled on current meds and cont to dec EDW on HD 6. DM control seen and examined w/ RN- telehealth visit I will review her bedside on Monday if she remains in the hospital. Please not hesitate to reach out to me should I be of help over the weekend. Attestations Medical Necessity Statement*: eval for renal failure Coding Level of Care Code Acute Therapeutic [employer] for Jilg Hanane
[2020-10-02] MEDS: enoxaparin 30 mg/0.3 mL Syringe SUBCUT (18:01)
[2020-10-02 18:12] LABS: Glucose Point of Care 124 mg/dL (70-110)
[2020-10-02 20:12] LABS: Glucose Point of Care 185 mg/dL (70-110)
[2020-10-02] MEDS: atorvastatin 40 mg Tablet PO (21:20)
[2020-10-02] MEDS: carvedilol 3.125 mg Tablet PO (21:20)
[2020-10-02] MEDS: sertraline 50 mg Tablet PO (21:20)
[2020-10-02] MEDS: cefTRIAXone 1,000 MG in sodium chloride 0.9% (plus) 50 ML 100 MG IV (21:20)
[2020-10-03] VITALS (8 sets, daily range): BP systolic 143–169; BP diastolic 52–75; PULSE 64–68; RESP 19–23; TEMP 36.6–36.8; O2SAT 93–96
[2020-10-03 05:41] LABS: Basophils # 0.1 10^3/uL (0.0-0.1); Basophils % 1.1 %; Eosinophils # 0.6 10^3/uL (0.0-0.8); Hematocrit 31.3 % (37.0-47.0); Hemoglobin 9.4 g/dL (11.5-15.3); Lymphocytes # 2.4 10^3/uL (0.8-4.8); Lymphocytes % 19.5 %; Mean Corpuscular Hemoglobin 26.2 pg (28.0-34.0); Mean Corpuscular Volume 87.2 fL (81-99); Mean Platelet Volume 10.5 fL (7.4-10.4); Monocytes # 1.7 10^3/uL (0.2-0.9); Monocytes % 13.8 %; Neutrophils # 7.31 10^3/uL (1.8-7.7); Neutrophils % 59.5 %; Nucleated Red Blood Cells % 0 %; Platelet Count 555 10^3/cmm (130-400); Red Blood Count 3.59 10^6/uL (4.1-5.3); White Blood Count 12.3 10^3/uL (4.0-10.0)
[2020-10-03 05:59] LABS: Alanine Aminotransferase 9 U/L (0-33); Albumin Level 3.1 g/dL (3.5-5.2); Alkaline Phosphatase 73 IU/L (35-105); Anion Gap 12.4 (5-19); Aspartate Amino Transferase 15 U/L (0-32); Blood Urea Nitrogen 19 mg/dL (8-23); Calcium 8.2 mg/dL (8.5-10.5); Carbon Dioxide 28 mmol/L (22-29); Chloride 98 mmol/L (98-107); Globulin 2.5 g/dL (1.3-4.6); Glucose 75 mg/dL (65-115); Magnesium 1.9 mg/dL (1.7-2.3); Osmolality Calculated 279 mOsm/kg (285-295); Phosphorus 2.6 mg/dL (2.5-4.5); Potassium 4.4 mmol/L (3.5-5.1); Sodium 134 mmol/L (136-145); Total Bilirubin 0.2 mg/dL (0.15-1.2); Total Protein 5.6 g/dL (6.6-8.7)
[2020-10-03 07:25] LABS: Glucose Point of Care 83 mg/dL (70-110)
[2020-10-03] MEDS: sevelamer 800 mg Tablet PO (09:02)
[2020-10-03] MEDS: clopidogrel 75 mg Tablet PO (09:02)
[2020-10-03] MEDS: b-complex-vitamin c Tablet 1 EACH PO (09:02)
[2020-10-03] MEDS: aspirin 81 mg EC Tablet PO (09:02)
[2020-10-03] MEDS: losartan 50 mg Tablet 100 MG PO (09:02)
[2020-10-03] MEDS: isosorbide mononitrate ER 30 mg Tablet 15 MG PO (09:03)
[2020-10-03] MEDS: FUROsemide 40 mg Tablet 80 MG PO (09:19)
[2020-10-03] MEDS: carvedilol 3.125 mg Tablet PO (09:19)
[2020-10-03 11:27] LABS: Glucose Point of Care 138 mg/dL (70-110)
--- NOTE | 2020-10-03 13:49 | P.DS_ITS ---
Discharge Providers Date of Admission: 09/15/20 17:09 Date of Discharge: October 03, 2020 Attending Provider at Admission: Kim Granados MD Attending Provider at Discharge: Brady Rivas Primary Care Provider: Osito Owens MD Diagnoses at Discharge Discharge Diagnosis (1) CAD (coronary artery disease): Status: Acute Qualifiers: Associated angina: without angina Coronary Disease-Associated Artery/Lesion type: [place] artery [place] vs. transplanted heart: [place] heart Qualified Code(s): I25.10 - Atherosclerotic heart disease of [place] coronary artery without angina pectoris (2) Acute exacerbation of CHF (congestive heart failure): Status: Acute Qualifiers: Heart failure type: combined systolic and diastolic Qualified Code(s): I50.43 - Acute on chronic combined systolic (congestive) and diastolic (congestive) heart failure (3) Hypertension: Status: Acute Qualifiers: Hypertension type: essential hypertension Qualified Code(s): I10 - Essential (primary) hypertension (4) Diabetes: Status: Acute Permanent problem details: -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; s/p toe amputations due to diabetic foot infections Qualifiers: Diabetes mellitus complication detail: with polyneuropathy Diabetes mellitus complication status: with neurologic complications Diabetes mellitus rat exterminator insulin use: with intermediate use Diabetes mellitus type: type 2 Qualified Code(s): E11.42 - Type 2 diabetes mellitus with diabetic polyneuropathy; Z79.4 - computer terminal operator (current) use of insulin (5) CKD (chronic kidney disease): Status: Acute Qualifiers: Chronic kidney disease stage: unspecified stage Qualified Code(s): N18.9 - Chronic kidney disease, unspecified (6) Acute kidney injury: Status: Acute Permanent problem details: -has known CKD stage 3 with superimposed JOSE LUIS -baseline Cr seems to be gradually increasing -Cr so far has been stable in the 2-2.4 range -continue to monitor renal function, avoid nephrotoxins, renally dose meds Reason for Visit Reason for Visit: SOB Hospital Course Hospital Course 74 year old female who has history of mild pulmonary hypertension, diastolic congestive heart failure preserved ejection fraction, noncompliant with CPAP/sleep apnea, came in with chief complaint of worsening shortness of breath. Patient is stating that she has been feeling short of breath for last 1 to 2 weeks, her PCP started her on Lasix 40 mg which did not relieve her symptoms at all, she started Lasix about 2 to 3 days ago, she has been experiencing orthopnea, PND, exertional shortness of breath without fever, productive cough, abdominal pain, dysuria. She is endorsing 1 episode of loose stool last night, no recent antibiotic use or abdominal pain. She does not smoke or drink alcohol. Because of worsening of her symptoms she decided to come to the hospital for further evaluation. Diagnosis in the ER revealed acute CHF exacerbation, she was given Levaquin by the ER physician for concern of pneumonia which was evident on x-ray however she does not carry any signs of inflammation nor symptoms. Patient was noted to have multiple complications throughout hospitalization. Cardiology was consulted. 2D echo with contrast: 09/23 : Mildly decreased left ventricle systolic function. Left ventricle ejection fraction is estimated at 45 to 50%.There seems to be mild hypokinesis of mid to apical anterolateral and basal inferolateral plascencia.Stress test: 09/24: Large sized perfusion abnormality of moderate severity in inferior and lateral plascencia with reversibility noted in entire anterior, mid to apical inferior and mid to apical inferolateral plascencia. The left ventricular ejection fraction is mildly reduced with a value of 48%. There has been Drop in E.F as compared to prior Echo. Patient was taken for a catheterization. She was noted to have mid LAD lesion she underwent Resolute DINA drug-eluting stent placement to mid LAD (2.75 x 15 mm) after IFR was found to be 0.84, in addition to mild disease in right coronary artery and circumflex. She was continued on aspirin and plavix. This complicated her chronic renal disease. Was on Lasix for diuresis however she progressed to end stage requiring initiation of dialysis. Did have a tunneled catheter placed which appeared to have mild erythema surrounding this. She was started on broad spectrum antibiotics. Cultures were taken however did not yield any growth. She was requiring supplemental oxygen. Home o2 eval was performed prior to discharge. At the time I assumed care of patient she was awaiting discharge planning to SNF however noted improvement and thus was discharge home with home care. Outpatient HD and appointments were arranged. 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: no focal neuro deficits Skin; Temp HD cath site - stable Urinary Catheter Management^: Jesus: Cath Placed During This Visit: yes, but has since been removed by the nurse Reason for Continuing Indwelling Catheter: Accurate Measurement of Urinary Output in Critically Ill Patients Urinary Catheter Date of Insertion: 09/15/20 Urinary Catheter Time of Insertion: 14:26 Date Urinary Catheter Removed: 09/30/20 Time Urinary Catheter Discontinued: 15:00 Discharge Data Data Completed and Pending: Completed Studies During Hospitalization Category Date Time Status CT chest wo con 7 1250 Routine Cat Scan 09/15/20 19:14 Completed Sestamibi Stress Test Request Routi ne Exams 09/23/20 09:28 Completed XR chest 1V zhanna ble [id number] Routine Exams 09/29/20 08:28 Completed XR chest 1V zhanna ble [id number] Stat Exams 09/15/20 12:52 Completed XR chest 1V zhanna ble [id number] Stat Exams 09/19/20 14:06 Completed XR chest 1V zhanna ble [id number] Urgent Exams 09/21/20 15:57 Completed NM nba perf SPECT r/s* [id number] Routin e Nuc Med 09/24/20 09:28 Completed Cytology [PTH] Ro utine Pth 09/20/20 18:39 Completed CV echo complete* [id number] Routine Ultrasound 09/17/20 05:00 Completed CV echo lmt wo/w contras [id number] Rout ine Ultrasound 09/23/20 07:22 [place] [id number] Routin e Ultrasound 09/16/20 06:00 Completed US renal BI* [id number] Routine Ultrasound 09/17/20 10:23 Completed US thoracentesis [id number] Routine Ultrasound 09/21/20 08:00 Completed US/CV paperwork R outine Ultrasound 09/23/20 08:10 Completed Pending at discharge Category Date Time Status HVAC SALES REPRESENTATIVE request for service Routin e Exams 09/28/20 19:28 Taken Blood Culture Sta t Lab 09/28/20 14:25 Results Labs from last 24 hours 10/03/20 10/03/20 10/03/20 11:16 07:04 04:43 WBC RBC Hgb Hct MCV MCH MCHC RDW Plt Count MPV Neut % (Auto) Lymph % (Auto) [place] % (Auto) Eos % (Auto) Baso % (Auto) Neut # (Auto) Lymph # (Auto) [place] # (Auto) Eos # (Auto) Baso # (Auto) Nucleated RBC % (a uto) Nucleated RBCs # Sodium 134 L Potassium 4.4 Chloride 98 Carbon Dioxide 28 Anion Gap 12.4 BUN 19 Creatinine 2.8 H GFR Calculation Not Reportable Glucose 75 POC Glucose 138 H 83 Calculated Osmolal ity 279 L Calcium 8.2 L Phosphorus 2.6 Magnesium 1.9 Total Bilirubin 0.2 AST 15 ALT 9 Alkaline Phosphata se 73 Total Protein 5.6 L Albumin 3.1 L Globulin 2.5 10/03/20 10/02/20 10/02/20 04:43 19:51 17:54 WBC 12.3 H RBC 3.59 L Hgb 9.4 L Hct 31.3 L MCV 87.2 MCH 26.2 L MCHC 30.0 RDW 16.0 H Plt Count 555 H MPV 10.5 H Neut % (Auto) 59.5 Lymph % (Auto) 19.5 [place] % (Auto) 13.8 Eos % (Auto) 5.0 Baso % (Auto) 1.1 Neut # (Auto) 7.31 Lymph # (Auto) 2.4 [place] # (Auto) 1.7 H Eos # (Auto) 0.6 Baso # (Auto) 0.1 Nucleated RBC % (a uto) 0 Nucleated RBCs # 0.0 Sodium Potassium Chloride Carbon Dioxide Anion Gap BUN Creatinine GFR Calculation Glucose POC Glucose 185 H 124 H Calculated Osmolal ity Calcium Phosphorus Magnesium Total Bilirubin AST ALT Alkaline Phosphata se Total Protein Albumin Globulin Vitals: Last Vital Signs Temp 98.3 F 10/03/20 12:00 Pulse 68 10/03/20 12:00 Resp 19 H 10/03/20 12:00 BP 169/72 10/03/20 12:00 Pulse Ox 94 10/03/20 12:00 Discharge Plan Discharge Patient Disposition: Home Condition: Stable Prescriptions: New tramadol 50 mg Tablet 50 mg PO Q8H PRN (Reason: Moderate Pain) Qty: 15 RF: 0 aspirin 81 mg Tablet,Delayed Release (Dr/Ec) 81 mg PO DAILY Qty: 30 RF: 0 atorvastatin 40 mg Tablet 40 mg PO BEDTIME Qty: 30 RF: 0 losartan 50 mg Tablet 100 mg PO DAILY Qty: 30 RF: 0 furosemide 40 mg Tablet 80 mg PO BID@08,16 Qty: 60 RF: 0 isosorbide mononitrate 30 mg Tablet Extended Release 24 Hr 15 mg PO BID Qty: 30 RF: 0 clopidogrel 75 mg Tablet 75 mg PO DAILY Qty: 30 RF: 0 carvedilol 3.125 mg Tablet 3.125 mg PO BID@, Qty: 60 RF: 0 sevelamer carbonate 800 mg Tablet 800 mg PO BID Qty: 60 RF: 0 Levemir FlexTouch U-100 Insuln 100 unit/mL (3 mL) insulin pen 25 unit SUBCUT QPM Qty: 3 RF: 0 Continued sertraline 50 mg tablet 50 mg PO Q24H 30 Days Qty: 30 RF: 5 Levemir FlexTouch U-100 Insuln 100 unit/mL (3 mL) insulin pen 25 unit SUBCUT BEDTIME@2100 RF: 0 Discontinued nitroglycerin 0.4 mg tablet, sublingual 0.4 mg SUBLINGUAL Q5M PRN (Reason: chest pains) RF: 0 ondansetron HCl [Zofran] 4 mg tablet 4 mg PO Q8H PRN (Reason: nausea and vomiting) Qty: 30 RF: 1 insulin lispro [Humalog KwikPen Insulin] 100 unit/mL insulin pen 10 unit SUBCUT TID 30 Days Qty: 15 RF: 11 spironolactone 25 mg Tablet 25 mg PO DAILY@08 RF: 0 furosemide [Lasix] 40 mg tablet 40 mg PO DAILY@08 RF: 0 carvedilol 25 mg tablet 25 mg PO BID@ RF: 0 Discharge Orders: Discharge Order (Routine); Ordered 10/03/20 Ordered By: Brady Rivas Referrals: [facility] [Other] (Please note your chair time at [facility] is scheduled for 6:15am on Mon, Mon and Monday. ) [facility] [Outside] Osito Owens MD [Primary Care Provider] - 4-7 days ([facility] will be calling to set up a hospital followup to be seen in 4 to 7 days. If you don't hear from them by Monday afternoon, please give them a call. Thank you) Walker De La Vega MD [Physician] - 2 weeks (Dr. De La Vega's office will be calling to schedule a Surgical followup to be rosaura in 2 weeks. If you don't hear from them by Monday afternoon, please give them a call. Thank you) Catrachita Davila MD [Physician] - 1 month ([facility] will be calling to schedule a cardiology followup with Dr. Davila to be seen in 1 month. If you don't hear from them by Monday afternoon, please give then a call. Thank you) Discharge Diet: Cardiac, Diabetic and Low Salt Discharge Activity: Increase activity as tolerated Patient Instructions: Isosorbide Dinitrate (By mouth), Furosemide (By mouth), Aspirin (By mouth), Tramadol (By mouth), Losartan (By mouth), Atorvastatin (By mouth), Carvedilol (By mouth), Clopidogrel (By mouth), Sevelamer (By mouth), Insulin Detemir (Injection), Heart Failure (DC), Left Heart Catheterization (DC), Chronic Kidney Disease (DC), Hemodialysis (DC), Dialysis Diet (DC), Hemodialysis for Acute Renal Failure (DC), CHF Stoplight Discharge Attestations Time Spent in Discharge Care*: greater than 30 min Specific Discharge Activities: educating patient, educating and/or supporting family/caregiver, discussing with pcp/other providers, discussing with manager of case/social workers/dc planners, documenting/other paperwork and evaluating patient/reviewing data Status at Discharge: Cognitive status at discharge: cognitively intact , Be havioral status at discharge: cooperative , Functional status at discharge: independent ambulation Overall status at discharge: patient is progressing back to baseline Quality Metrics Clinical Quality Measures During this hospital stay, did patient experience: None Coding Level of Care Code Acute [facility] DC note Diagnoses CAD (coronary artery disease) I25.10 Associated angina: without angina Coronary Disease-Associated Artery/Lesion type: [place] artery [place] vs. transplanted heart: [place] heart Acute exacerbation of CHF (congestive heart failure) I50.43 Heart failure type: combined systolic and diastolic Hypertension I10 Hypertension type: essential hypertension Diabetes E11.42; Z79.4 Diabetes mellitus complication detail: with polyneuropathy Diabetes mellitus complication status: with neurologic complications Diabetes mellitus rat exterminator insulin use: with rat exterminator use Diabetes mellitus type: type 2 CKD (chronic kidney disease) N18.9 Chronic kidney disease stage: unspecified stage Acute kidney injury N17.9
--- NOTE | 2020-10-03 16:12 | PC.NURSE ---
discharge instructions given and explained.pt verb understanding of instructions.discharged via w/c to exit.friend to drive pt home.
== END 2020-10-03 16:13 | disposition home health service (06) | DRG 246 ==
LOC: ER 13:23 → CSU 17:36
PROVIDERS: Internal Medicine; Internal Medicine Cardiovascular Disease; Internal Medicine Nephrology; Surgery; Admitting Provider Student in an Organized Health Care Education/Training Program; Emergency Provider Family Medicine; PCP Family Medicine; Visit Provider Hospitalist
PROC: 0JH63XZ Insertion of Tunneled Vascular Access Device into Chest Subcutaneous Tissue and Fascia, Percutaneous Approach (ICD-10-PCS; principal; 2020-09-25 13:10)
PROC: 027034Z Dilation of Coronary Artery, One Artery with Drug-eluting Intraluminal Device, Percutaneous Approach (ICD-10-PCS; principal; 2020-09-28 08:30)
PROC: 027034Z Dilation of Coronary Artery, One Artery with Drug-eluting Intraluminal Device, Percutaneous Approach (ICD-10-PCS; 2020-09-28 08:30)
DX: I13.2 Hypertensive heart and chronic kidney disease with heart failure and with stage 5 chronic kidney disease, or end stage renal disease (principal); I50.43 Acute on chronic combined systolic (congestive) and diastolic (congestive) heart failure; N18.6 End stage renal disease; J18.9 Pneumonia, unspecified organism; J90 Pleural effusion, not elsewhere classified; N17.9 Acute kidney failure, unspecified; N39.0 Urinary tract infection, site not specified; E11.22 Type 2 diabetes mellitus with diabetic chronic kidney disease; Z86.73 Personal history of transient ischemic attack (TIA), and cerebral infarction without residual deficits; F32.9 Major depressive disorder, single episode, unspecified; E11.21 Type 2 diabetes mellitus with diabetic nephropathy; E11.42 Type 2 diabetes mellitus with diabetic polyneuropathy; E11.51 Type 2 diabetes mellitus with diabetic peripheral angiopathy without gangrene; K21.9 Gastro-esophageal reflux disease without esophagitis; E78.00 Pure hypercholesterolemia, unspecified; G47.33 Obstructive sleep apnea (adult) (pediatric); Z89.429 Acquired absence of other toe(s), unspecified side; I16.0 Hypertensive urgency; D63.1 Anemia in chronic kidney disease; B95.2 Enterococcus as the cause of diseases classified elsewhere; E78.5 Hyperlipidemia, unspecified; D47.3 Essential (hemorrhagic) thrombocythemia; Z91.19 Patient's noncompliance with other medical treatment and regimen; I27.20 Pulmonary hypertension, unspecified; I25.10 Atherosclerotic heart disease of native coronary artery without angina pectoris; I48.91 Unspecified atrial fibrillation
CPT/HCPCS: 32555; 36415; 36416; 51702; 51798; 71045; 71250; 76000; 76770; 77001; 78452; 80048; 80053; 80061; 80202; 81001; 82042; 82465; 82575; 82607; 82728; 82945; 82962; 83036; 83540; 83550; 83615; 83735; 83880; 83986; 84100; 84155; 84156; 84157; 84165; 84311; 84478; 84484; 85025; 85347; 85378; 85610; 86704; 86705; 86706; 86709; 86803; 87040; 87070; 87075; 87077; 87086; 87186; 87205; 87340; 87426; 87493; 87806; 88112; 88305; 90935; 93005; 93017; 93306; 93454; 93970; 94660; 94760; 96365; 96372; 96374; 96375; 97110; 97116; 97161; 97165; 97530; 99291; A9500; C1725; C1750; C1769; C1874; C1887; C1894; C8924; C9600; J0153; J0360; J0690; J0696; J1200; J1644; J1650; J1756; J1815; J1940; J1956; J2250; J2704; J2785; J3010; J3246; J3370; J3490; J7030; J7040; J7050; Q3014; Q4081; Q9967

== ENCOUNTER 2021-04-08 14:40 | Outpatient (CLI) | payer MEDICARE, SELFPAY ==
--- NOTE | 2021-04-08 14:46 | XR_ITS ---
WS: [id number] XR chest 3V [id number] REASON FOR EXAM: T82.41XA - Breakdown (mechanical) of vascular dialysis ca... FINDINGS: Right IJ dialysis catheter remains in position. No change from 09/29/2020. Heart and mediastinum are within normal limits. Interstitial infiltrative changes in the left lung base with atelectasis. Left pleural effusion. Degenerative changes in the mid and lower thoracic spine. XR/XR chest 3V [id number] IMPRESSION: Abnormality in the left lower chest as above. Unknown chronicity.
== END 2021-04-08 14:41 | disposition home or self-care (01) ==
PROVIDERS: PCP Internal Medicine Nephrology; Visit Provider Surgery
DX: T82.41XA Breakdown (mechanical) of vascular dialysis catheter, initial encounter (principal); Y83.8 Other surgical procedures as the cause of abnormal reaction of the patient, or of later complication, without mention of misadventure at the time of the procedure
CPT/HCPCS: 71047; 87635

== ENCOUNTER 2021-04-13 08:23 | Day surgery (SDC) | payer MEDICARE, SELFPAY ==
[2021-04-12 16:24] VITALS: BMI 33.7
--- NOTE | 2021-04-13 08:30 | SC_ITS ---
WS: [id number] INTRAOPERATIVE TECHNIQUE: 2 Spot fluoroscopic images for intraoperative purposes. FLUOROSCOPY TIME: 28.2 seconds CLINICAL INFORMATION: Exchange of hemodialysis catheter COMPARISON: None. FINDINGS: Dual lumen right central venous catheter with tips in the distal SVC and right atrium. No visualized pneumothorax. SC/C-arm FL for CVA [id number] IMPRESSION: Images obtained for intraoperative purposes.
[2021-04-13 08:58] VITALS: BP 173/81; PULSE 71; RESP 18; TEMP 36.3; O2SAT 96
[2021-04-13 09:15] LABS: Glucose Point of Care 296 mg/dL (70-110)
[2021-04-13] MEDS: sodium chloride 0.9% 1,000 ML 30 ML IV (09:33)
--- NOTE | 2021-04-13 09:56 | ANES.PREANE2 ---
Pre-Anesthetic Assessment Pre-Anesthetic Assessment: Height/Weight: Height 1.65 m Weight 92.079 kg Temp Pulse Resp BP Pulse Ox 97.3 F L 71 18 173/81 96 04/13/21 08:58 04/13/21 08:58 04/13/21 08:58 04/13/21 08:58 04/13/21 08:58 Preop Diagnosis: Hemodialysis catheter dysfunction Proposed Procedure: Operation Date: 04/13/21 10:05 Proposed Procedures p Dialysis Catheter Insertion [id number] T82.41XA(Not Applicable) - Juancho Gilmore MD Was Beta Maddie taken within 24 hours: N/A Was Clonidine taken within 24 hours: N/A Last intake: Intake Last Liquid Date 04/12/21 Last Liquid Time 16:00 Last Solid Date 04/12/21 Last Solid Time 16:00 Social: Social History: No alcohol and No tobacco Exam: Pre-Anes Outpt Exam: alert, oriented x 3, clear to auscultation bilaterally and regular rate & rhythm Airway: Submandibular: WNL Cervical ROM: WNL MP: 2 Dentition: False Pulmonary: Pulmonary: Sleep apnea CV/HEM: CV/HEM: Anemia, CAD (stent), CHF and HTN : : Chronic renal failuer Metabolic: Metabolic: DM and Morbid obesity Anesthetic Plan: ASA status: 3 Anesthesia: MAC Risk of > 500 ml blood loss (7ml/kg in children): No Meds/Allergies Current Medications: Current Medications Generic Name Dose Route Start Last Admin Trade Name Freq PRN Reason Stop Dose Admin Sodium Chloride 1,000 mls @ 30 ml s/hr 04/13/21 08:30 04/13/21 09:33 Sodium Chloride 0.9% IV 04/14/21 08:29 30 mls/hr .Q24H JT Administration PFSH Anesthesia PFSH: Medical History Acute exacerbation of CHF (congestive heart failure) Chronic kidney disease, stage 3 -Nephrology f/u as outpatient Congestive heart failure Depression 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; s/p toe amputations due to diabetic foot infections Diabetes Diabetic neuropathy Diastolic CHF -Echo: EF=60%, G1DD, no RWMA, mild pulmonary HTN, mild , mild TR, trace MR GERD (gastroesophageal reflux disease) -on PPI and carafate Hypercholesteremia -on statin Hypertension Hypertension ANA (obstructive sleep apnea) does not wear cpap by choice Takotsubo cardiomyopathy -had extensive workup done in [facility] in [place] in 06/2019; records reviewed -Echo with EF=43%, LVH, noted distal septal, apical and anterolateral hypokinesia/apical ballooning consistent with Takotsubo cardiomyopathy; mild MR. No mention of stress testing or cardiac cath. Records in chart -noted elevated troponins with no significant delta; unlikely to be acute process -telemetry monitoring -Echo: EF=60%, G1DD, no RWMA, mild pulmonary HTN, mild , mild TR, trace MR Transient cerebral ischemia Venous insufficiency (chronic) (peripheral) Surgical History 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 History of appendectomy History of bladder suspension procedure History of cataract surgery History of cholecystectomy History of drainage of abscess left vulvar/perineal area History of hernia repair History of surgery on arm left arm, due to extravasation History of total hysterectomy S/P hemodialysis catheter insertion (09/25/20) Family History Father CAD (coronary artery disease) by report, she never knew him Social History Smoking and tobacco status: never smoked Alcohol intake: never Caregiver/support person: No Household members: none Marital status: / Data Anesthesia CBC & Chem 7: 04/13/21 09:22 Other Labs: Laboratory Results - last 48 hr 04/13/21 09:12 POC Glucose 296 H Cardiac Studies: Echocardiogram 09/23/20
[2021-04-13 10:13] LABS: Anion Gap 14.4 (5-19); Blood Urea Nitrogen 34 mg/dL (8-23); Calcium 8.8 mg/dL (8.5-10.5); Carbon Dioxide 30 mmol/L (22-29); Chloride 94 mmol/L (98-107); Glucose 303 mg/dL (65-115); Osmolality Calculated 297 mOsm/kg (285-295); Potassium 4.4 mmol/L (3.5-5.1); Sodium 134 mmol/L (136-145)
--- NOTE | 2021-04-13 10:41 | W.PM.OPSUD ---
Surgery/Procedure H&P Update DATE OF PROCEDURE: April 13, 2021 DATE H&P PERFORMED: 04/08/21 H&P UPDATE INFORMATION: I have reviewed H&P completed within last 30 days, I have examined patient prior to procedure and No changes to prior documentation PREOP DIAGNOSIS: Hemodialysis catheter dysfunction PRIMARY INDICATION FOR PROCEDURE: The same PLANNED PROCEDURE: Operation Date: 04/13/21 10:05 Proposed Procedures p Dialysis Catheter Insertion [id number] T82.41XA(Not Applicable) - Juancho Gilmore MD
[2021-04-13] MEDS: lidocaine 2% INJ 20 mL INJECTION (10:53)
[2021-04-13] MEDS: heparin, porcine 1,000 unit/mL INJ 10 mL 6000 UNIT IRRIGATION (11:06)
--- NOTE | 2021-04-13 11:19 | XRR_ITS ---
PROCEDURE INFORMATION: Exam: XR Chest Exam date and time: 04/13/2021 11:19 AM Age: 75 years old Clinical indication: Device placement; Other: Right ij hd catheter; Prior surgery; Surgery date: Post-operative (0-2 days); Additional info: S/P right ij hd catheter TECHNIQUE: Imaging protocol: XR of the chest. Views: 1 view. COMPARISON: CR XR chest 3V [id number] 04/08/2021 3:01 PM FINDINGS: Tubes, catheters and devices: A dialysis catheter is present with the tip projecting in the SVC. Lungs: There is left basilar opacity consistent with lower lobe consolidation atelectasis and small effusion. This is similar to the previous study. The right lung has some fibrosis but no acute consolidation. Pleural spaces: Unremarkable. No pleural effusion. No pneumothorax. Heart/Mediastinum: Unremarkable. No cardiomegaly. Bones/joints: Unremarkable. XR/XR chest 1V portable [id number] IMPRESSION: 1. Satisfactory position of the right internal jugular dialysis catheter with the tip in the SVC. 2. Stable left basilar infiltrate and atelectasis with pleural effusion. Radiation Dose CTDIVOL = (mGy): DLP = (mGy-cm)
[2021-04-13] MEDS: neomycin-poly-bacitracin oint 28 gm 1 APPLIC TOPICAL (11:27)
--- NOTE | 2021-04-13 11:34 | PM.OP ---
Operative Report Date of procedure: April 13, 2021 Pre-op Diagnosis: Hemodialysis catheter dysfunction Post-op diagnosis: same Procedure Done: 1. Placement of 16 [place] 23 cm long AshSplit tunneled hemodialysis catheter right internal jugular vein 2. Fluoroscopic guidance and interpretation for placement of catheter Implants: Right internal jugular vein tunneled hemodialysis catheter 16 [place] 28/23 cm Surgeon: Juancho Gilmore Head Men'S Tennis Coach: nuclear cardiology technologistairam Cummings nurse Patricia Anesthesia: MAC (sports coordinator Will Smart) Estimated blood loss (mL): 10 Condition: stable Disposition: same day Brief History: Dysfunctional right internal jugular vein hemodialysis catheter Procedure: Patient was identified in the holding area and taken to the operative room and placed in supine position ,both arms were tucked,Time-out was done verifying the patient's name/date of /planned procedure and destination after the procedure, all were in agreement.SCDs confirmed to be functioning, intubated by anesthesia ,patient was given prophylactic antibiotics administered per protocol, and beta jeanette protocol was confirmed, appropriate positioning of the patient was done by me. Medications were reviewed to assess for anticoagulant usage. Risks and benefits and prevention of central line associated blood stream infection (CLABSI) were discussed with the patient/CPOA, and a consent was obtained. Monitors were in place and monitored throughout the procedure. All necessary supplies were available prior to start. Hand hygiene was completed prior to starting. Maximum barrier technique was utilized including a sterile gown, sterile gloves with a hat and mask. Site was was prepped with [chlorhexidine] and a full body drape was placed. 5 mL of 2% lidocaine was injected into the skin with a 25 gauge needle. Prep& drape was done under the usual sterile technique of upper chest right and left as well as the neck both sides, lidocaine 2% was injected, a basic fluoroscopy capture was taken to have a baseline and previous catheter look to be in appropriate position.I was able to retrieve venous blood from both ports.I created a skin incision at the root of the neck and the catheter was divided and a vascular clamp was applied to hold the distal part still, the proximal part was then dissected and removed from its previously created stab incision at the upper chest wall. I was able to pass a guidewire through the distal part and found to be in good position without causing PVCs and then the distal part of the catheter was taken out and serial dilators were used after creating a skin incision. At that point the guidewire was secured to the drapes with a hemostat, attention was then deviated towards creation of an insert for the HD catheter at the right upper chest, were lidocaine 2% was injected using an 11 blade knife skin incision was created dissection using a hemostat to create an entrance and for the HD catheter to be inserted were it was connected to a tunneler, and the tunneler was used to accommodate the catheter of the HD catheter to be delivered through the incision first created at the right side of the neck followed by that the dilator and the wire were retrieved and the catheter of the port was introduced via the sheath where it was peeled off and the catheter maintained, to be in good position in the right atrium Both ports were flushed with diluted heparin and appropriate blood was retrieved first, Hep-Lock's were then applied The whole procedure was done under fluoroscopy , the position maintained to be in the rt atrium that was confirmed with fluoroscopy, and the fluoroscopy interpretation was done by me throughout the entire procedure. The stick site was closed by 3-0 Vicryl deep subdermal interrupted sutures, followed by 4-0 Monocryl and Dermabond was used followed by dry dressing was applied. The original insertion of the previous catheter was closed by 3-0 nylon. A 3/0 nylon was used to secure the hemodialysis catheter onto the anterior chest wall. Patient tolerated the procedure well was taken to the recovery area Count was correct at the end of the procedure. I was present for the whole entire procedure Position of the catheter was checked with a postoperative chest x-ray and it was in good position without evidence of pneumothorax on both sides of the Thorax Placement of a HemoSplit hemodialysis catheter 16 [place],28 cm arterial side,23 cm venous side Catheter was placed via the right IJ vein and fluoroscopy guidance and interpretation by me
[2021-04-13 11:35] VITALS: BP 143/65; PULSE 99; RESP 70; TEMP 36.4; O2SAT 94
[2021-04-13 11:40] VITALS: BP 150/74; PULSE 71; RESP 18; O2SAT 95
[2021-04-13 11:45] VITALS: BP 152/74; PULSE 69; RESP 18; TEMP 36.2; O2SAT 96
--- NOTE | 2021-04-13 11:49 | SUR.PHASEI ---
pt awake alert talkative , pt denies pain dressing dry and intact, x ray done at bedside DR VELASCO AWARE OF X RAY. PT TO OPS.
[2021-04-13 11:52] VITALS: BP 151/75; PULSE 70; RESP 18; O2SAT 95
[2021-04-13 12:23] VITALS: BP 156/82; PULSE 69; RESP 18; O2SAT 95
--- NOTE | 2021-04-13 14:22 | ANE.PACU2 ---
Inpatient post-anesthesia follow up: Airway intact: Yes Vital signs: Temperature 97.2 F Pulse Rate 69 Respiratory Rate 18 Blood Pressure 156/82 Pulse Oximetry 95 Oxygen Delivery Me thod Room Air Oxygen Flow Rate Fraction of Inspir ed Oxygen Hydration adequate: Yes Nausea and vomiting: No Pain level: 2 Mental status: Baseline
== END 2021-04-13 11:53 | disposition home or self-care (01) ==
PROVIDERS: Anesthesiology; PCP Internal Medicine Nephrology; Visit Provider Surgery
PROC: (CPT 36558; principal; 2021-04-13 09:55)
DX: T82.41XA Breakdown (mechanical) of vascular dialysis catheter, initial encounter (principal); Y82.8 Other medical devices associated with adverse incidents; E11.22 Type 2 diabetes mellitus with diabetic chronic kidney disease; I13.0 Hypertensive heart and chronic kidney disease with heart failure and stage 1 through stage 4 chronic kidney disease, or unspecified chronic kidney disease; N18.30 Chronic kidney disease, stage 3 unspecified; I50.9 Heart failure, unspecified
CPT/HCPCS: 36558; 36589; 36415; 36416; 71045; 77001; 80048; 82962; 96365; C1750; J0690; J1644; J2370; J2704; J3010; J7030

== ENCOUNTER 2021-04-16 10:53 | Emergency (ER) | payer MEDICARE, SELFPAY ==
[2021-04-16 11:36] VITALS: BP 178/77; PULSE 68; RESP 18; TEMP 36.6; O2SAT 100; BMI 33.7
--- NOTE | 2021-04-16 11:50 | W.ED.GENADLT ---
HPI - General Adult General: Chief complaint: General Medical Stated complaint: BLEEDING PORT Time Seen by Provider: 04/16/21 11:34 History of Present Illness: HPI narrative: Patient is a 75-year-old female comes to the ED with concern of dialysis cath bleeding. Patient went into dialysis today and while they were performing dialysis and catheter started bleeding. They told her to come here to the ED to be evaluated. Patient is asymptomatic and has no complaints of pain around port. Here in the ED the bleeding has slowed down considerably and does not bleeding like it was before she arrived to the ED. She denies any symptoms or pain around catheter site. Patient states this is happened before. Associated symptoms: Deny chest pain, dyspnea, headache(s), nausea, rash, palpitations or vomiting Review of Systems Narrative: Bleeding patient's dialysis catheter site. Const: Denies: fever(s), chills or fatigue Eyes: Denies: change in vision or eye discomfort ENMT: Denies: throat pain, odynophagia, nasal discharge or nasal congestion Card: Denies: chest pain, palpitations, edema, swelling of feet/ankles, dyspnea on exertion or orthopnea Resp: Denies: dyspnea, productive cough or non-productive cough GI: Denies: abdominal pain, nausea, vomiting, diarrhea, constipation or hematochezia : Denies: flank pain, dysuria or hematuria Musc: Denies: neck pain, back pain or extremity swelling Skin/Breast: Denies: rash or new lesions Neuro: Denies: headache(s), numbness in extremities or weakness in extremities PFS ED PFSH: Medical History Acute exacerbation of CHF (congestive heart failure) Chronic kidney disease, stage 3 -Nephrology f/u as outpatient Congestive heart failure Depression 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; s/p toe amputations due to diabetic foot infections Diabetes Diabetic neuropathy Diastolic CHF -Echo: EF=60%, G1DD, no RWMA, mild pulmonary HTN, mild , mild TR, trace MR GERD (gastroesophageal reflux disease) -on PPI and carafate Hypercholesteremia -on statin Hypertension Hypertension ANA (obstructive sleep apnea) does not wear cpap by choice Takotsubo cardiomyopathy -had extensive workup done in [facility] in [place] in 06/2019; records reviewed -Echo with EF=43%, LVH, noted distal septal, apical and anterolateral hypokinesia/apical ballooning consistent with Takotsubo cardiomyopathy; mild MR. No mention of stress testing or cardiac cath. Records in chart -noted elevated troponins with no significant delta; unlikely to be acute process -telemetry monitoring -Echo: EF=60%, G1DD, no RWMA, mild pulmonary HTN, mild , mild TR, trace MR Transient cerebral ischemia Venous insufficiency (chronic) (peripheral) Surgical History 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 History of appendectomy History of bladder suspension procedure History of cataract surgery History of cholecystectomy History of drainage of abscess left vulvar/perineal area History of hernia repair History of surgery on arm left arm, due to extravasation History of total hysterectomy S/P hemodialysis catheter insertion (09/25/20) Family History Father CAD (coronary artery disease) by report, she never knew him Social History Alcohol intake: never Caregiver/support person: No Household members: none Marital status: / Physical Exam Const: COMMON NORMALS: no acute distress, patient oriented x3, healthy appearing and alert GENERAL APPEARANCE: cooperative and comfortable HENMT: COMMON NORMALS: normocephalic HEAD & SCALP: normocephalic MOUTH: Normal oral and palatal mucosa present THROAT: posterior oropharynx normal and uvula midline Neck/C-Spine: COMMON NORMALS: supple GENERAL: Yes normal visual inspection Chest: OTHER: Patient has port on right upper chest there is some very minimal bleeding seen. There is some clots formed on the tubing and she has quite a bit of blood on her clothing. Port bleeding seems to have almost resolved. No erythema, purulent drainage or warmth noted around Resp: COMMON NORMALS: normal respiratory effort, No retractions, No use of accessory muscles and clear to auscultation bilaterally AUSCULTATION: clear to auscultation bilaterally Cardio: COMMON NORMALS: regular rate, regular rhythm, S1 normal heart sound present, S2 normal heart sound present, No gallops present (Cardio), No clicks present (Cardio), No murmurs present (Cardio) and Peripheral pulses 2+ throughout RATE: regular rate RHYTHM: regular rhythm HEART SOUNDS: S1 normal heart sound present and S2 normal heart sound present PERIPHERAL PULSES: Peripheral pulses 2+ throughout GI: COMMON NORMALS: Normal to inspection, nondistended, normoactive bowel sounds present, Soft to palpation, non-tender and no masses PALPATION: Yes Soft to palpation : COMMON NORMALS: Yes no CVA tenderness BLADDER/KIDNEY EXAM: Yes no CVA tenderness Back/Pelvis: COMMON NORMALS: no CVA tenderness Extremity: COMMON NORMALS: normal to inspection Neuro: COMMON NORMALS: patient oriented x3 and moves all extremities SENSORIUM/ORIENTATION: Yes alert Skin: GENERAL SKIN EXAM: dry skin Course Consultations: Consultation #1: I contacted Dr. Gilmore and told him about patient's port issue. He told me to have nurse apply Surgicel dressing around the external site of catheter. Vital Signs: Vital signs: Vital Signs Temperature 97.8 F 04/16/21 11:36 Pulse Rate 62 04/16/21 13:58 Respiratory Rate 23 H 04/16/21 13:58 Blood Pressure 183/112 04/16/21 13:58 Pulse Oximetry 94 04/16/21 13:58 MDM - General Adult MDM Narrative: Medical decision making narrative: Patient is a 75-year-old female comes to the ED with her dialysis catheter site bleeding. This has happened before and she has seen Dr. Gilmore in the past for this issue. Patient denies any other symptoms such as pain at catheter site. Upon exam it appears bleeding is pretty much resolved. No signs of infection seen around dialysis cath site. I contacted Dr. Gilmore to talk about patient's dialysis catheter report. He recommended to have port area covered with Surgicel and then patient can discharge home. Nurse clean catheter area and then applied Surgicel to cover dialysis cath site. Patient was discharged home and told to follow-up with PCP in 7 to 10 days for reevaluation. Return to ED precautions given. Patient understood agree with plan. Discharge Plan Discharge Patient Disposition: Home Clinical Impression: Change or removal of surgical wound dressing Condition: Stable Prescriptions: No Action novolog flex pen 5 units .Route DAILY RF: 0 carvedilol 3.125 mg tablet 3.125 mg PO BID@08,21 Qty: 180 RF: 3 hydralazine 25 mg tablet 25 mg PO BID RF: 0 multivitamin Tablet 1 tab PO DAILY RF: 0 torsemide 10 mg tablet 10 mg PO BID RF: 0 clopidogrel 75 mg tablet 75 mg PO DAILY Qty: 90 RF: 3 Hold Instructions: Resume on 04/16/21. atorvastatin 40 mg tablet See Rx Instructions .ROUTE .COMPLEX Qty: 90 RF: 2 aspirin 81 mg tablet,delayed release (DR/EC) See Rx Instructions .ROUTE .COMPLEX Qty: 30 RF: 0 Hold Instructions: Resume on 04/17/21. sevelamer carbonate 800 mg tablet See Rx Instructions .ROUTE .COMPLEX Qty: 180 RF: 3 Levemir FlexTouch U-100 Insuln 100 unit/mL (3 mL) insulin pen 25 unit SUBCUT QPM Qty: 3 RF: 0 sertraline [Zoloft] 50 mg tablet See Rx Instructions .ROUTE .COMPLEX RF: 0 hydrocodone-acetaminophen 5-325 mg tablet 1 tab PO Q6H PRN (Reason: pain) Qty: 10 RF: 0 Discharge Orders: Discharge ED (Routine); Ordered 04/16/21 Ordered By: Tonny Anderson Referrals: Rao Pickering MD [Primary Care Provider] - Discharge Diet: Regular Discharge Activity: Increase activity as tolerated Activity Restrictions/Additional Instructions: Follow-up with medical provider as directed in 5 to 7 days for reevaluation. Continue taking all medications as previously prescribed. Return to the ER or your medical provider if condition worsens. Please read and understand discharge instructions. Thank you for choosing [facility] for your healthcare needs today. Please realize this is an emergency room and that we are providing you with a medical screening exam and this may not be complete and all inclusive of all the testing and or work up that you may need to determine your ailment or severity of your illness. It is very important that you follow up as instructed or that you return to the Emergency Department should you have concerns or if your condition changes or worsens in any way. Coding Level of Care Code ED Certified Nurse Midwife for Ivett Koo Exam Comprehensive
[2021-04-16 12:36] VITALS: PULSE 69; RESP 14; O2SAT 98
[2021-04-16 13:58] VITALS: BP 183/112; PULSE 62; RESP 23; O2SAT 94
== END 2021-04-16 13:59 | disposition home or self-care (01) ==
PROVIDERS: Emergency Provider Physician Assistant; PCP Internal Medicine Nephrology
DX: Z48.01 Encounter for change or removal of surgical wound dressing (principal); Z79.02 Long term (current) use of antithrombotics/antiplatelets; Z79.82 Long term (current) use of aspirin; Z79.4 Long term (current) use of insulin; E11.22 Type 2 diabetes mellitus with diabetic chronic kidney disease; I13.0 Hypertensive heart and chronic kidney disease with heart failure and stage 1 through stage 4 chronic kidney disease, or unspecified chronic kidney disease; N18.30 Chronic kidney disease, stage 3 unspecified; I50.9 Heart failure, unspecified; E11.40 Type 2 diabetes mellitus with diabetic neuropathy, unspecified
CPT/HCPCS: 99281

== ENCOUNTER 2021-10-30 10:27 | Emergency (ER) | payer MEDICARE, SELFPAY ==
[2021-10-30 10:52] VITALS: BP 170/72; PULSE 75; RESP 16; TEMP 37.4; O2SAT 96; BMI 34.8
--- NOTE | 2021-10-30 11:03 | XRR_ITS ---
PROCEDURE INFORMATION: Exam: XR Left Tibia and Fibula Exam date and time: 10/30/2021 11:07 AM Age: 75 years old Clinical indication: Fall with blunt left lower leg trauma. TECHNIQUE: Imaging protocol: XR Left tibia and fibula. Views: 2 views. COMPARISON: No relevant prior studies available. FINDINGS: Bones/joints: There are foci of mild chronic appearing periosteal reaction along the proximal to mid tibial diaphysis, medially. This could reflect hypertrophic osteoarthropathy. No acute fracture is identified. Soft tissues: There is mild diffuse soft tissue swelling involving the lower leg. Vasculature: Atherosclerotic arterial calcifications are seen. XR/XR tibia fibula LT 2V [id number] IMPRESSION: 1. Foci of mild chronic appearing periosteal reaction along the proximal to mid tibial diaphysis, medially. This could reflect hypertrophic osteoarthropathy. 2. Mild diffuse soft tissue swelling involving the lower leg. 3. No acute fracture is seen.
--- NOTE | 2021-10-30 11:03 | XRR_ITS ---
PROCEDURE INFORMATION: Exam: XR Left Knee Exam date and time: 10/30/2021 11:07 AM Age: 75 years old Clinical indication: Fall with blunt left knee trauma. TECHNIQUE: Imaging protocol: XR Left knee. Views: 3 views. COMPARISON: No relevant prior studies available. 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 No chondrocalcinosis is seen. No gross knee joint effusion. There could be a subtle nondisplaced fracture involving the proximal left fibula. This may be artifactual. Correlate with physical examination. Soft tissues: The extensor mechanism is grossly intact. XR/XR knee LT 3V* [id number] IMPRESSION: 1. There could be a subtle nondisplaced fracture involving the proximal left fibula. This may be artifactual. Correlate with physical examination. 2. 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
--- NOTE | 2021-10-30 11:04 | W.ED.EXTPRO ---
HPI - Extremity Problem General: Chief complaint: Extremity Injury, Lower Stated complaint: left leg pain Time Seen by Provider: 10/30/21 10:59 History of Present Illness: Patient fell Monday and landed on her left knee. She has had pain on it since then. She said has not really improved and swell now and is very difficult to bear weight on it but when she is just laying there it does not hurt so bad. Associated symptoms: Deny chest pain, fever(s) or rash Review of Systems Const: Denies: fever(s), chills or body aches Eyes: Denies: eye discomfort ENMT: Denies: throat pain Card: Denies: chest pain Resp: Denies: dyspnea GI: Denies: abdominal pain, nausea or vomiting Musc: Reports: extremity pain (Left lower leg), extremity swelling, joint pain (Left knee) and joint swelling Skin/Breast: Denies: rash Neuro: Denies: headache(s) Psych: Denies: depression or suicidal ideation PFSH ED PFSH: Medical History Acute exacerbation of CHF (congestive heart failure) Chronic kidney disease, stage 3 -Nephrology f/u as outpatient Congestive heart failure Depression 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; s/p toe amputations due to diabetic foot infections Diabetes Diabetic neuropathy Diastolic CHF -Echo: EF=60%, G1DD, no RWMA, mild pulmonary HTN, mild , mild TR, trace MR GERD (gastroesophageal reflux disease) -on PPI and carafate Hypercholesteremia -on statin Hypertension Hypertension ANA (obstructive sleep apnea) does not wear cpap by choice Takotsubo cardiomyopathy -had extensive workup done in [facility] in [place] in 06/2019; records reviewed -Echo with EF=43%, LVH, noted distal septal, apical and anterolateral hypokinesia/apical ballooning consistent with Takotsubo cardiomyopathy; mild MR. No mention of stress testing or cardiac cath. Records in chart -noted elevated troponins with no significant delta; unlikely to be acute process -telemetry monitoring -Echo: EF=60%, G1DD, no RWMA, mild pulmonary HTN, mild , mild TR, trace MR Transient cerebral ischemia Venous insufficiency (chronic) (peripheral) Surgical History 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 History of appendectomy History of bladder suspension procedure History of cataract surgery History of cholecystectomy History of drainage of abscess left vulvar/perineal area History of hernia repair History of surgery on arm left arm, due to extravasation History of total hysterectomy S/P hemodialysis catheter insertion (09/25/20) Family History Father CAD (coronary artery disease) by report, she never knew him Social History Smoking and tobacco status: never smoked Alcohol intake: never Caregiver/support person: No Household members: none Marital status: / Physical Exam Const: COMMON NORMALS: no acute distress Resp: COMMON NORMALS: normal respiratory effort Extremity: LEFT LOWER EXTREMITY: Yes knee joint (Tender throughout with mild swelling) Left knee: Yes ROM (Full range of motion but pain with palpation) and Yes lower leg (Tenderness to the upper fibula area mild swelling) Course Vital Signs: Vital signs: Vital Signs Temperature 99.3 F 10/30/21 10:52 Pulse Rate 75 10/30/21 10:52 Respiratory Rate 16 10/30/21 10:52 Blood Pressure 170/72 10/30/21 10:52 Pulse Oximetry 96 10/30/21 10:52 MDM - Extremity (Nontraumatic) Medical Decision Making Left knee pain times few days. X-ray studies inconclusive for possible fracture of the fibula. Patient has tenderness to the tibial on exam. Ortho follow-up was provided along with a knee immobilizer. Patient does not want crutches and will use a walker and wheelchair she has at home. Lab Data Radiology Impressions Knee X-Ray 10/30/21 11:03 IMPRESSION: 1. There could be a subtle nondisplaced fracture involving the proximal left fibula. This may be artifactual. Correlate with physical examination. 2. 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 Tibia/Fibula X-Ray 10/30/21 11:03 IMPRESSION: 1. Foci of mild chronic appearing periosteal reaction along the proximal to mid tibial diaphysis, medially. This could reflect hypertrophic osteoarthropathy. 2. Mild diffuse soft tissue swelling involving the lower leg. 3. No acute fracture is seen. ADDENDUM: 10/30/21 1201 Possible nondisplaced fracture involving the proximal fibula only identified on the single view of the knee. Correlate for tenderness. Discharge Plan Discharge Patient Disposition: Home Clinical Impression: Fibula fracture Acute knee pain Qualifiers: Laterality: left Qualified Code(s): M25.562 - Pain in left knee Condition: Stable Prescriptions: New tramadol 50 mg tablet 50 mg PO TID PRN (Reason: pain) Qty: 7 0RF No Action carvedilol 3.125 mg tablet 3.125 mg PO BID@ Qty: 180 3RF phenazopyridine [Pyridium] 200 mg tablet 200 mg PO TID PRN (Reason: pain) 3 Days Qty: 9 0RF sulfamethoxazole-trimethoprim [Bactrim DS] 800-160 mg tablet 1 tab PO BID Qty: 14 0RF hydralazine 25 mg tablet 25 mg PO BID 0RF multivitamin Tablet 1 tab PO DAILY 0RF torsemide 10 mg tablet 10 mg PO BID 0RF clopidogrel 75 mg tablet 75 mg PO DAILY Qty: 90 3RF Hold Instructions: Resume on 04/16/21. atorvastatin 40 mg tablet See Rx Instructions .ROUTE .COMPLEX Qty: 90 2RF Dose Instruction: TAKE 1 TABLET BY MOUTH AT BEDTIME Rx Instructions: TAKE 1 TABLET BY MOUTH AT BEDTIME insulin aspart U-100 [Novolog Flexpen U-100 Insulin] 100 unit/mL (3 mL) insulin pen See Rx Instructions SUBCUT BID 90 Days Qty: 15 0RF Rx Instructions: 5-10 units based off blood sugar readings on the sliding scale SUBCUT twice a day; sertraline 50 mg tablet See Rx Instructions .ROUTE .COMPLEX Qty: 90 0RF Dose Instruction: TAKE 1 TABLET BY MOUTH EVERY 24 HOURS Rx Instructions: TAKE 1 TABLET BY MOUTH EVERY 24 HOURS aspirin 81 mg tablet,delayed release (DR/EC) See Rx Instructions .ROUTE .COMPLEX Qty: 30 0RF Hold Instructions: Resume on 04/17/21. Dose Instruction: TAKE 1 TABLET BY MOUTH DAILY Rx Instructions: TAKE 1 TABLET BY MOUTH DAILY sevelamer carbonate 800 mg tablet See Rx Instructions .ROUTE .COMPLEX Qty: 180 3RF Dose Instruction: TAKE 1 TABLET BY MOUTH TWICE DAILY Rx Instructions: TAKE 1 TABLET BY MOUTH TWICE DAILY Levemir FlexTouch U-100 Insuln 100 unit/mL (3 mL) insulin pen 25 unit SUBCUT QPM Qty: 3 0RF Discharge Orders: Discharge ED (Routine); Ordered 10/30/21 Ordered By: Moses Agosto Referrals: Rao Pickering MD [Primary Care Provider] - Discharge Diet: Usual diet Discharge Activity: Increase activity as tolerated Activity Restrictions/Additional Instructions: Wear immobilizer. Do not apply weight to the leg. Hospital may be contacted with appointment for orthopedic follow-up. Take pain medicine as directed. Coding Level of Care Code ED Web Designer Developer for [employer] Exam Expanded Problem Focused
--- NOTE | 2021-11-01 11:48 | DCPLANNER ---
Addendum entered by Mar Hidalgo 11/03/21 22:51: Patient had a follow up appointment scheduled for 11.02.21 with ortho - patient did attend appointment. Original Note: manager mountain had message to schedule a follow up appointment for patient with ortho. manager mountain sent patients information to the front office staff at ortho. Patients information will be printed and reviewed. Clinic will call patient with appointment information.
== END 2021-10-30 12:26 | disposition home or self-care (01) ==
PROVIDERS: Emergency Provider Nurse Practitioner Family; PCP Internal Medicine Nephrology
DX: M17.12 Unilateral primary osteoarthritis, left knee (principal); M25.562 Pain in left knee
CPT/HCPCS: 29530; 73562; 73590; 99283

== ENCOUNTER → 2021-11-02 10:14 | Outpatient (BNVA) | payer MEDICARE, SELFPAY | PROVIDERS: PCP Internal Medicine Nephrology; Referring Provider Nurse Practitioner Family; Visit Provider Nurse Practitioner Family | DX: S82.409A Unspecified fracture of shaft of unspecified fibula, initial encounter for closed fracture (principal); W19.XXXA Unspecified fall, initial encounter | CPT/HCPCS: 99213; 99214 ==

== ENCOUNTER 2021-11-05 16:32 | Emergency (ER) | payer MEDICARE, SELFPAY ==
[2021-11-05 16:45] VITALS: BP 131/64; PULSE 72; RESP 16; TEMP 37.1; O2SAT 97; BMI 34.3
--- NOTE | 2021-11-05 17:07 | ED_ITS ---
HPI - Extremity Problem General: Chief complaint: Extremity Injury, Lower Stated complaint: Swelling and pain in left leg Time Seen by Provider: 11/05/21 17:07 History of Present Illness: Ms. Rockwell is a 75-year-old lady with significant recent past medical history of fibular fracture presenting to the emergency department with concern for blood clot in her leg. She reports since her fracture she had mild swelling however over the past few days and she has had increased swelling and noticed a tender full bump region on her anterior ayala. She denies distal paresthesias or motor changes. Denies history of blood clots. Intensity of symptoms is moderate. Quality is aching. No other specific changes in health, exacerbating, or alleviating factors identified. 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; s/p toe amputations due to diabetic foot infections Diabetes Diabetic neuropathy Diastolic CHF -Echo: EF=60%, G1DD, no RWMA, mild pulmonary HTN, mild , mild TR, trace MR ESRD on hemodialysis GERD (gastroesophageal reflux disease) -on PPI and carafate Hypercholesteremia -on statin Hypertension Hypertension ANA (obstructive sleep apnea) does not wear cpap by choice Takotsubo cardiomyopathy -had extensive workup done in [facility] in [place] in 06/2019; records reviewed -Echo with EF=43%, LVH, noted distal septal, apical and anterolateral hypokinesia/apical ballooning consistent with Takotsubo cardiomyopathy; mild MR. No mention of stress testing or cardiac cath. Records in chart -noted elevated troponins with no significant delta; unlikely to be acute process -telemetry monitoring -Echo: EF=60%, G1DD, no RWMA, mild pulmonary HTN, mild , mild TR, trace MR Transient cerebral ischemia Venous insufficiency (chronic) (peripheral) Surgical History 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 History of appendectomy History of bladder suspension procedure History of cataract surgery History of cholecystectomy History of drainage of abscess left vulvar/perineal area History of hernia repair History of surgery on arm left arm, due to extravasation History of total hysterectomy S/P hemodialysis catheter insertion (09/25/20) Family History Father CAD (coronary artery disease) by report, she never knew him Social History Smoking and tobacco status: never smoked Alcohol intake: never Caregiver/support person: No Household members: none Marital status: / Physical Exam Const: COMMON NORMALS: alert GENERAL APPEARANCE: cooperative and well developed HENMT: COMMON NORMALS: normocephalic and atraumatic HEAD & SCALP: normocephalic and atraumatic Eye: COMMON NORMALS: conjunctivae normal CONJUNCTIVA: Yes conjunctivae normal SCLERA: sclerae normal Neck/C-Spine: COMMON NORMALS: supple GENERAL: Yes trachea midline Resp: COMMON NORMALS: normal respiratory effort EFFORT & INSPECTION: Yes able to speak in complete sentences Cardio: COMMON NORMALS: regular rate and regular rhythm RATE: regular rate RHYTHM: regular rhythm GI: COMMON NORMALS: Soft to palpation PALPATION: Yes Soft to palpation and No Tenderness to palpation present (GI) PERCUSSION: normal to percussion Extremity: NARRATIVE EXTREMITY EXAM: Anterior ayala area of fullness/tenderness with distal venous distension. Edema present. CMS intact. GENERAL: Yes edema Neuro: COMMON NORMALS: moves all extremities SENSORIUM/ORIENTATION: Yes alert and No Orientation impaired Psych: COMMON NORMALS: mental status grossly normal and Normal thought process present THOUGHT PROCESS: Normal thought process present Course ED course: - Patient was seen and evaluated by me at bedside -Vital signs obtained - Initial evaluation notable for exam as above - Imaging notable for no evidence of DVT - Upon serial reexamination after treatment the patient was similar - Based on patient history, evaluation, and testing as interpreted the most likely cause of the patient's condition is passive venous congestion related to fracture and swelling. - The results of ED evaluation were discussed with the patient including prescriptions and/or symptomatic cares (if applicable) including appropriate and responsible use, followup plan, and return precautions. The patient verbalized understanding and felt safe for discharge. - Patient discharged in satisfactory condition. Note: Click bubbles or prepopulated franklin in note writing are used for assistance with data collection and billing and are inherently more limited than narrative and other text portions of this note. Please use narrative for additional clinical history and defer to narrative/free test for any case of contradictory information. If information appears in only free text or click bubble it should be considered present or absent as reported. Please contact note residential mortgage underwriter for clarifications of clinical information or contradictory information. MDM is a brief summary, contradictory or erroneous seeming information should be clarified and full note should be reviewed. Vital Signs: Vital signs: Vital Signs Temperature 98.7 F 11/05/21 16:45 Pulse Rate 74 11/05/21 19:11 Respiratory Rate 16 11/05/21 19:11 Blood Pressure 134/71 11/05/21 19:11 Pulse Oximetry 96 11/05/21 19:11 MDM - Extremity (Nontraumatic) Medical Decision Making 75-year-old lady with known fibular fracture presenting for concern over DVT. Ultrasound negative. Satisfactory for outpatient management. Medical Records I reviewed the patient's medical records. Lab Data I reviewed the patient's lab results. Radiology Impressions Venous Duplex 11/05/21 17:21 IMPRESSION: No evidence of deep vein thrombosis. Discharge Plan Discharge Patient Disposition: Home Clinical Impression: Leg swelling, Venous congestion Condition: Stable Prescriptions: No Action carvedilol 3.125 mg tablet 3.125 mg PO BID@ Qty: 180 3RF phenazopyridine [Pyridium] 200 mg tablet 200 mg PO TID PRN (Reason: pain) 3 Days Qty: 9 0RF sulfamethoxazole-trimethoprim [Bactrim DS] 800-160 mg tablet 1 tab PO BID Qty: 14 0RF hydralazine 25 mg tablet 25 mg PO BID 0RF multivitamin Tablet 1 tab PO DAILY 0RF torsemide 10 mg tablet 10 mg PO BID 0RF clopidogrel 75 mg tablet 75 mg PO DAILY Qty: 90 3RF Hold Instructions: Resume on 04/16/21. atorvastatin 40 mg tablet See Rx Instructions .ROUTE .COMPLEX Qty: 90 2RF Dose Instruction: TAKE 1 TABLET BY MOUTH AT BEDTIME Rx Instructions: TAKE 1 TABLET BY MOUTH AT BEDTIME insulin aspart U-100 [Novolog Flexpen U-100 Insulin] 100 unit/mL (3 mL) insulin pen See Rx Instructions SUBCUT BID 90 Days Qty: 15 0RF Rx Instructions: 5-10 units based off blood sugar readings on the sliding scale SUBCUT twice a day; sertraline 50 mg tablet See Rx Instructions .ROUTE .COMPLEX Qty: 90 0RF Dose Instruction: TAKE 1 TABLET BY MOUTH EVERY 24 HOURS Rx Instructions: TAKE 1 TABLET BY MOUTH EVERY 24 HOURS tramadol 50 mg tablet 50 mg PO TID PRN0RF aspirin 81 mg tablet,delayed release (DR/EC) See Rx Instructions .ROUTE .COMPLEX Qty: 30 0RF Hold Instructions: Resume on 04/17/21. Dose Instruction: TAKE 1 TABLET BY MOUTH DAILY Rx Instructions: TAKE 1 TABLET BY MOUTH DAILY sevelamer carbonate 800 mg tablet See Rx Instructions .ROUTE .COMPLEX Qty: 180 3RF Dose Instruction: TAKE 1 TABLET BY MOUTH TWICE DAILY Rx Instructions: TAKE 1 TABLET BY MOUTH TWICE DAILY Levemir FlexTouch U-100 Insuln 100 unit/mL (3 mL) insulin pen 25 unit SUBCUT QPM Qty: 3 0RF Discharge Orders: Discharge ED (Routine); Ordered 11/05/21 Ordered By: Alejandro Buckner Referrals: Rao Pickering MD [Primary Care Provider] - Discharge Diet: Usual diet Discharge Activity: Limit activity as instructed Patient Instructions: Leg Edema (ED) Activity Restrictions/Additional Instructions: Thank you for visiting the emergency department. You were seen and evaluated for leg swelling and prominence/tenderness of superficial veins. The exact c ause of your symptoms is unclear though likely related to your previous fracture and overall swelling which limits venous return and therefore the superficial veins become congested. Please continue all instructions given by orthopedic surgery. I would expect symptoms improve as your orthopedic injury improves. Return to the emergency department for anything that you are concerned about and feel needs emergency department evaluation. Coding Level of Care Code ED Sap Bods Developer for Ivett Koo
--- NOTE | 2021-11-05 17:21 | USR_ITS ---
PROCEDURE INFORMATION: Exam: US Duplex Left Lower Extremity Veins, Limited Exam date and time: 11/05/2021 5:59 PM Age: 75 years old Clinical indication: Pain; Swelling (edema) of limb; Lower extremity, left; Leg, lower; Additional info: Swelling, recent fracture, eval dvt and superficial ayala TECHNIQUE: Imaging protocol: Real-time Duplex ultrasound of the Left Lower Extremity with 2-D chaudhary scale, color Doppler flow and spectral waveform analysis with image documentation. Limited exam focused on the left lower extremity veins. COMPARISON: US renal BI* [id number] 09/17/2020 2:38 PM FINDINGS: Left deep veins: Unremarkable. The common femoral, femoral, proximal profunda femoral and popliteal veins are patent without thrombus. Normal Doppler waveforms. Normal compressibility and/or augmentation response. Left superficial veins: Unremarkable. Saphenofemoral junction is patent without thrombus. Soft tissues: Unremarkable. US/CV venous duplex [facility] [id number] IMPRESSION: No evidence of deep vein thrombosis.
[2021-11-05 19:11] VITALS: BP 134/71; PULSE 74; RESP 16; O2SAT 96
== END 2021-11-05 19:23 | disposition home or self-care (01) ==
PROVIDERS: Emergency Provider Emergency Medicine; PCP Internal Medicine Nephrology
DX: I87.8 Other specified disorders of veins (principal); M79.89 Other specified soft tissue disorders
CPT/HCPCS: 93971; 99283

== ENCOUNTER → 2021-11-09 14:59 | Outpatient (BNVA) | payer MEDICARE, SELFPAY | PROVIDERS: PCP Internal Medicine Nephrology; Visit Provider Internal Medicine Cardiovascular Disease | DX: I25.10 Atherosclerotic heart disease of native coronary artery without angina pectoris (principal); I13.2 Hypertensive heart and chronic kidney disease with heart failure and with stage 5 chronic kidney disease, or end stage renal disease; E11.22 Type 2 diabetes mellitus with diabetic chronic kidney disease; N18.6 End stage renal disease; I50.9 Heart failure, unspecified; Z99.2 Dependence on renal dialysis; E11.42 Type 2 diabetes mellitus with diabetic polyneuropathy; Z79.4 Long term (current) use of insulin | CPT/HCPCS: 99214 ==

== ENCOUNTER → 2021-11-18 09:21 | Outpatient (BNVA) | payer MEDICARE, SELFPAY | PROVIDERS: PCP Internal Medicine Nephrology; Visit Provider Nurse Practitioner Family | DX: S82.409A Unspecified fracture of shaft of unspecified fibula, initial encounter for closed fracture (principal); W19.XXXA Unspecified fall, initial encounter | CPT/HCPCS: 73562; 99213; 99214 ==

== ENCOUNTER → 2022-05-12 14:09 | Outpatient (BNVA) | payer MEDICARE, SELFPAY | PROVIDERS: PCP Internal Medicine Nephrology; Visit Provider Nurse Practitioner Family | DX: I25.10 Atherosclerotic heart disease of native coronary artery without angina pectoris (principal); I11.0 Hypertensive heart disease with heart failure; I50.33 Acute on chronic diastolic (congestive) heart failure | CPT/HCPCS: 99214 ==

== ENCOUNTER → 2022-05-13 10:47 | Outpatient (BNVA) | payer MEDICARE, SELFPAY | PROVIDERS: PCP Internal Medicine Nephrology; Visit Provider Obstetrics & Gynecology | DX: R10.2 Pelvic and perineal pain (principal) | CPT/HCPCS: 76830 ==

== ENCOUNTER → 2022-07-08 13:47 | Outpatient (BNVA) | payer MEDICARE, SELFPAY | PROVIDERS: PCP Internal Medicine Nephrology; Visit Provider Thoracic Surgery (Cardiothoracic Vascular Surgery) | DX: I96 Gangrene, not elsewhere classified (principal); E11.621 Type 2 diabetes mellitus with foot ulcer; L97.512 Non-pressure chronic ulcer of other part of right foot with fat layer exposed | CPT/HCPCS: 11042; 99213; A6021 ==

== ENCOUNTER → 2022-07-15 12:55 | Outpatient (BNVA) | payer MEDICARE, SELFPAY | PROVIDERS: PCP Internal Medicine Nephrology; Visit Provider Thoracic Surgery (Cardiothoracic Vascular Surgery) | DX: I96 Gangrene, not elsewhere classified (principal); E11.621 Type 2 diabetes mellitus with foot ulcer; L89.892 Pressure ulcer of other site, stage 2 | CPT/HCPCS: 97597; A6021 ==

== ENCOUNTER → 2022-07-22 14:10 | Outpatient (BNVA) | payer MEDICARE, SELFPAY | PROVIDERS: PCP Internal Medicine Nephrology; Visit Provider Thoracic Surgery (Cardiothoracic Vascular Surgery) | DX: I96 Gangrene, not elsewhere classified (principal); E11.621 Type 2 diabetes mellitus with foot ulcer; L97.512 Non-pressure chronic ulcer of other part of right foot with fat layer exposed | CPT/HCPCS: 11042; A6021 ==

== ENCOUNTER → 2022-07-29 14:06 | Outpatient (BNVA) | payer MEDICARE, SELFPAY | PROVIDERS: PCP Internal Medicine Nephrology; Visit Provider Thoracic Surgery (Cardiothoracic Vascular Surgery) | DX: I96 Gangrene, not elsewhere classified (principal); E11.621 Type 2 diabetes mellitus with foot ulcer; L97.512 Non-pressure chronic ulcer of other part of right foot with fat layer exposed | CPT/HCPCS: 97597 ==

== ENCOUNTER → 2022-08-05 13:55 | Outpatient (BNVA) | payer MEDICARE, SELFPAY | PROVIDERS: PCP Internal Medicine Nephrology; Visit Provider Thoracic Surgery (Cardiothoracic Vascular Surgery) | DX: Z09 Encounter for follow-up examination after completed treatment for conditions other than malignant neoplasm (principal) | CPT/HCPCS: 99212 ==

== ENCOUNTER → 2022-10-04 13:39 | Outpatient (BNVA) | payer MEDICARE, SELFPAY | PROVIDERS: PCP Internal Medicine Nephrology; Visit Provider Surgery | DX: Z12.11 Encounter for screening for malignant neoplasm of colon (principal); K21.9 Gastro-esophageal reflux disease without esophagitis | CPT/HCPCS: 99203; 99214 ==

== ENCOUNTER 2022-10-27 08:30 | Day surgery (SDC) | payer MEDICARE, SELFPAY ==
[2022-10-25 12:33] VITALS: BMI 35.2
[2022-10-27 08:48] VITALS: BP 149/77; PULSE 70; RESP 18; TEMP 36.4; O2SAT 95
--- NOTE | 2022-10-27 09:03 | ANES.PREANE2 ---
Pre-Anesthetic Assessment Height/Weight: Height 1.63 m Weight 92.986 kg Temp Pulse Resp BP Pulse Ox O2 Del Method 97.6 F 70 18 149/77 95 Room Air 10/27/22 08:48 10/27/22 08:48 10/27/22 08:48 10/27/22 08:48 10/27/22 08:48 10/27/22 08:48 Preop Diagnosis: Hemodialysis catheter dysfunction Operation Date: 10/27/22 10:15 Proposed Procedures p 34831 egd w balloon dial 34143 colon Z12.11,K21.9(Not Applicable) - Man French DO s Colonoscopy(Not Applicable) - Man French DO Familial anesthetic complications: None Was Beta Maddie taken within 24 hours: Yes Was Clonidine taken within 24 hours: N/A Last intake: Intake Last Liquid Date 10/26/22 Last Liquid Time 20:00 Last Solid Date 10/25/22 Last Solid Time 14:00 Social No alcohol and No tobacco Exam alert, oriented x 3, clear to auscultation bilaterally and regular rate & rhythm Airway Mallampati: Class II Dentition: false Pulmonary Sleep Apnea CV/HEM Coronary Artery Disease (1 stent in 2020), Congestive Heart Failure (takotsubo's in 2019 - most recent EF 48%) and Hypertension Chronic Renal Failure (hemodialysis last performed yesterday) GI Gastroesophageal Reflux Disease Metabolic Diabetes Mellitus, Hyperlipidemia and Morbid Obesity Anesthetic Plan ASA status: 4 Anesthesia: MAC Risk of > 500 ml blood loss (7ml/kg in children): No Medications/Allergies Home Medications Medication Instructions Recorded Confirmed Last Taken Type multivitamin 1 tab PO DAILY 12/08/20 10/25/22 10/25/22 History alcohol swabs (BD Alcohol Swabs) 1 pad topical TID 90 days #300 ea 06/07/22 10/25/22 10/25/22 Rx blood glucose control, low (True #1 ea 06/07/22 10/25/22 10/25/22 Rx Metrix Level 1 solution) blood sugar diagnostic (True #300 ea 06/07/22 10/25/22 10/25/22 Rx Metrix Glucose Test Strip) blood-glucose meter (True Metrix #1 ea 06/07/22 10/25/22 10/25/22 Rx Air Glucose Meter kit) carvedilol 3.125 mg tablet 3.125 mg PO BID@08,21 #180 tabs 06/07/22 10/25/22 10/25/22 Rx lancets 33 gauge (TRUEplus Lancets) #300 ea 06/07/22 10/25/22 10/25/22 Rx insulin aspart U-100 100 unit/mL See Rx Instructions SUBCUT BID 08/08/22 10/25/22 10/25/22 History (3 mL) subcutaneous pen (Novolog FlexPen U-100 Insulin aspart) insulin detemir U-100 100 unit/mL 18 unit SUBCUT QPM 08/08/22 10/25/22 10/25/22 History (3 mL) subcutaneous pen (Levemir FlexTouch U-100 Insulin) pantoprazole 40 mg tablet,delayed 40 mg PO BID 6 weeks #84 tabs 10/04/22 10/25/22 10/25/22 Rx release (Protonix) aspirin 81 mg tablet,delayed 81 mg PO DAILY 10/25/22 10/25/22 10/22/22 History release atorvastatin 40 mg tablet 40 mg PO BEDTIME 10/25/22 10/25/22 10/25/22 History sertraline 50 mg tablet 50 mg PO DAILY 10/25/22 10/25/22 10/25/22 History sevelamer carbonate 2.4 gram oral 7.2 g PO TID 10/25/22 10/25/22 10/25/22 History powder packet Allergies Allergy/AdvReac Type Severity Reaction Status Date / Time adhesive Allergy ALGY-Rash Verified 10/27/22 09:02 morphine Allergy unknown Verified 10/27/22 09:02 zolpidem Allergy na Verified 10/27/22 09:02 [facility] Anesthesia Medical History (Updated 10/04/22 @ 14:35 by Man French DO) Acute exacerbation of CHF (congestive heart failure) Congestive heart failure Depression 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; s/p toe amputations due to diabetic foot infections Diabetes Diabetic neuropathy Diastolic CHF -Echo: EF=60%, G1DD, no RWMA, mild pulmonary HTN, mild , mild TR, trace MR ESRD on hemodialysis GERD (gastroesophageal reflux disease) -on PPI and carafate Hypercholesteremia -on statin Hypertension Hypertension ANA (obstructive sleep apnea) does not wear cpap by choice Takotsubo cardiomyopathy -had extensive workup done in [facility] in [place] in 06/2019; records reviewed -Echo with EF=43%, LVH, noted distal septal, apical and anterolateral hypokinesia/apical ballooning consistent with Takotsubo cardiomyopathy; mild MR. No mention of stress testing or cardiac cath. Records in chart -noted elevated troponins with no significant delta; unlikely to be acute process -telemetry monitoring -Echo: EF=60%, G1DD, no RWMA, mild pulmonary HTN, mild , mild TR, trace MR Transient cerebral ischemia Venous insufficiency (chronic) (peripheral) Surgical History 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 History of appendectomy History of bladder suspension procedure History of cataract surgery History of cholecystectomy History of drainage of abscess left vulvar/perineal area History of hernia repair History of surgery on arm left arm, due to extravasation History of total hysterectomy S/P hemodialysis catheter insertion (09/25/20) Family History Father CAD (coronary artery disease) by report, she never knew him Mother Breast cancer Grandmother Breast cancer Denies family history of Colon cancer Diabetes Hypertension Stroke Social History Substance/Drug Use: never Data Anesthesia Cardiac Studies: Echocardiogram 09/23/20 Echocardiogram Ultrasound 09/17/20 Sestamibi Stress Test (Cardiology) 09/23/20
[2022-10-27] MEDS: sodium chloride 0.9% 1,000 ML 30 ML IV (09:16)
[2022-10-27 09:18] LABS: Glucose Point of Care 178 mg/dL (70-110)
--- NOTE | 2022-10-27 09:45 | W.PM.OPSUD ---
Surgery/Procedure H&P Update DATE OF PROCEDURE: October 27, 2022 DATE H&P PERFORMED: 10/04/22 H&P UPDATE INFORMATION: I have reviewed H&P completed within last 30 days, I have examined patient prior to procedure and No changes to prior documentation PREOP DIAGNOSIS: Hemodialysis catheter dysfunction PLANNED PROCEDURE: Operation Date: 10/27/22 10:15 Proposed Procedures p 84317 egd w balloon dial 15126 colon Z12.11,K21.9(Not Applicable) - DO edward Jovel Colonoscopy(Not Applicable) - Man French DO
[2022-10-27 10:55] LABS: Anion Gap 14.5 (5-19); Blood Urea Nitrogen 18 mg/dL (8-23); Calcium 8.9 mg/dL (8.5-10.5); Carbon Dioxide 31 mmol/L (22-29); Chloride 96 mmol/L (98-107); Glucose 193 mg/dL (65-115); Osmolality Calculated 291 mOsm/kg (285-295); Potassium 4.5 mmol/L (3.5-5.1); Sodium 137 mmol/L (136-145)
[2022-10-27 11:38] VITALS: BP 126/53; PULSE 63; RESP 20; TEMP 36.3; O2SAT 96
[2022-10-27 11:45] VITALS: BP 149/67; PULSE 67; RESP 18; O2SAT 95
[2022-10-27 11:56] VITALS: BP 153/57; PULSE 66; RESP 18; O2SAT 96
--- NOTE | 2022-10-27 13:46 | ANE.PACU2 ---
Inpatient post-anesthesia follow up: Airway intact: Yes Vital signs: Temperature 97.3 F Pulse Rate 66 Respiratory Rate 18 Blood Pressure 153/57 Pulse Oximetry 96 Oxygen Delivery Me thod Room Air Oxygen Flow Rate Fraction of Inspir ed Oxygen Hydration adequate: Yes Nausea and vomiting: No Pain level: 1 Mental status: Baseline
== END 2022-10-27 12:10 | disposition home or self-care (01) ==
PROVIDERS: Anesthesiology; PCP Family Medicine; Visit Provider Surgery
PROC: 0DJD8ZZ Inspection of Lower Intestinal Tract, Via Natural or Artificial Opening Endoscopic (ICD-10-PCS; CPT 45378; 2022-10-27 10:15)
DX: Z12.11 Encounter for screening for malignant neoplasm of colon (principal); K22.2 Esophageal obstruction; K57.30 Diverticulosis of large intestine without perforation or abscess without bleeding; K21.9 Gastro-esophageal reflux disease without esophagitis; K44.9 Diaphragmatic hernia without obstruction or gangrene; K29.50 Unspecified chronic gastritis without bleeding; Z86.010 Personal history of colon polyps; Z80.0 Family history of malignant neoplasm of digestive organs; I25.10 Atherosclerotic heart disease of native coronary artery without angina pectoris; E11.22 Type 2 diabetes mellitus with diabetic chronic kidney disease; I13.2 Hypertensive heart and chronic kidney disease with heart failure and with stage 5 chronic kidney disease, or end stage renal disease; N18.6 End stage renal disease; I50.30 Unspecified diastolic (congestive) heart failure; E11.21 Type 2 diabetes mellitus with diabetic nephropathy; E11.42 Type 2 diabetes mellitus with diabetic polyneuropathy; E78.00 Pure hypercholesterolemia, unspecified; G47.33 Obstructive sleep apnea (adult) (pediatric); E66.01 Morbid (severe) obesity due to excess calories; Z68.35 Body mass index [BMI] 35.0-35.9, adult; Z95.5 Presence of coronary angioplasty implant and graft; Z99.2 Dependence on renal dialysis; Z79.4 Long term (current) use of insulin; Z79.82 Long term (current) use of aspirin; Z79.899 Other long term (current) drug therapy; Z86.73 Personal history of transient ischemic attack (TIA), and cerebral infarction without residual deficits
CPT/HCPCS: 36415; 36416; 43239; 43249; 80048; 82962; 88305; 88342; G0121; J2704; J7030

== ENCOUNTER → 2022-11-10 15:39 | Outpatient (BNVA) | payer MEDICARE, SELFPAY | PROVIDERS: PCP Family Medicine; Visit Provider Family Medicine | DX: L98.9 Disorder of the skin and subcutaneous tissue, unspecified (principal) | CPT/HCPCS: 88304; 88342 ==

== ENCOUNTER 2022-11-26 14:10 | Emergency (ER) | payer MEDICARE, SELFPAY ==
[2022-11-26 14:19] VITALS: BP 134/70; PULSE 71; RESP 14; TEMP 36.7; O2SAT 93; BMI 34.8
--- NOTE | 2022-11-26 14:21 | CTR_ITS ---
PROCEDURE INFORMATION: Exam: CT Head Without Contrast Exam date and time: 11/26/2022 2:34 PM Age: 77 years old Clinical indication: Injury or trauma; Fall; Blunt trauma (contusions or hematomas) TECHNIQUE: Imaging protocol: Computed tomography of the head without contrast. Radiation optimization: All CT scans at this facility use at least one of these dose optimization techniques: automated exposure control; mA and/or kV adjustment per patient size (includes targeted exams where dose is matched to clinical indication); or iterative reconstruction. REPORTING DATA: Count of CT and Cardiac NM exams in prior 12 months: This patient has received 0 known CTs and 0 known cardiac nuclear medicine studies in the 12 months prior to the current study. COMPARISON: CT head wo con* [id number] 01/04/2020 7:01 PM RADIATION DOSE METRICS: Total DLP (mGy-cm): 1033.38 FINDINGS: Brain: There is age-related volume loss. There is white matter lucency consistent with chronic microvascular disease. No evidence of acute infarct. No hemorrhage or extra-axial collection. No mass. Cerebral ventricles: There is no hydrocephalus. No intraventricular hemorrhage. Paranasal sinuses: Visualized sinuses are unremarkable. No fluid levels. Mastoid air cells: Visualized mastoid air cells are well aerated. Bones/joints: Unremarkable. No acute fracture. Soft tissues: Left parietal scalp hematoma.. CT/CT head wo con* [id number] IMPRESSION: 1. Volume loss and moderate chronic microvascular disease. 2. No acute intracranial injury or lesion. No change from prior scan
--- NOTE | 2022-11-26 14:21 | ED_ITS ---
HPI - Fall General: Chief Complaint: Fall Stated Complaint: HEAD PAIN S/P FALL Time Seen by Provider: 11/26/22 14:11 Source: patient and EMS Mode of arrival: EMS Limitations: no limitations History of Present Illness: 77-year-old female who states that she was out watering her plants this morning. She states that she usually has to use a walker to get around but when she stone her plants she does not states that she will just count of hold onto the wall or chairs she states that she grabbed a chair and it slipped out from under her and she fell. She did hit her head she has a mild headache she denies any other injuries denies any neck or chest or abdominal pain. 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; s/p toe amputations due to diabetic foot infections Diabetes Diabetic neuropathy Diastolic CHF -Echo: EF=60%, G1DD, no RWMA, mild pulmonary HTN, mild , mild TR, trace MR ESRD on hemodialysis GERD (gastroesophageal reflux disease) -on PPI and carafate Hypercholesteremia -on statin Hypertension Hypertension ANA (obstructive sleep apnea) does not wear cpap by choice Takotsubo cardiomyopathy -had extensive workup done in [facility] in [place] in 06/2019; records reviewed -Echo with EF=43%, LVH, noted distal septal, apical and anterolateral hypokinesia/apical ballooning consistent with Takotsubo cardiomyopathy; mild MR. No mention of stress testing or cardiac cath. Records in chart -noted elevated troponins with no significant delta; unlikely to be acute process -telemetry monitoring -Echo: EF=60%, G1DD, no RWMA, mild pulmonary HTN, mild , mild TR, trace MR Transient cerebral ischemia Venous insufficiency (chronic) (peripheral) Surgical History 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 History of appendectomy History of bladder suspension procedure History of cataract surgery History of cholecystectomy History of drainage of abscess left vulvar/perineal area History of hernia repair History of surgery on arm left arm, due to extravasation History of total hysterectomy S/P hemodialysis catheter insertion (09/25/20) Family History Father CAD (coronary artery disease) by report, she never knew him Mother Breast cancer Grandmother Breast cancer Denies family history of Colon cancer Diabetes Hypertension Stroke Social History Smoking and tobacco status: never smoked Alcohol intake: current Alcohol intake frequency: holidays/special occasions only Substance/Drug Use: never Current occupational status: disabled Physical Exam Const: COMMON NORMALS: no acute distress, patient oriented x3 and healthy appearing HENMT: COMMON NORMALS: normocephalic HEAD & SCALP: normocephalic OTHER: scalp tenderness no lacerations Eye: COMMON NORMALS: Equal, round and reactive pupils present and EOMs intact bilaterally PUPIL: Yes Equal, round and reactive pupils present Neck/C-Spine: COMMON NORMALS: full ROM and supple Chest: COMMONS NORMALS: normal inspection of the chest and normal palpation of entire chest wall Resp: COMMON NORMALS: normal respiratory effort, No retractions, No use of accessory muscles and clear to auscultation bilaterally AUSCULTATION: clear to auscultation bilaterally Cardio: COMMON NORMALS: regular rate, regular rhythm and No murmurs present (Cardio) RATE: regular rate RHYTHM: regular rhythm GI: COMMON NORMALS: Normal to inspection, nondistended, normoactive bowel sounds present, Soft to palpation, non-tender and no masses PALPATION: Yes Soft to palpation Extremity: COMMON NORMALS: normal to inspection and full ROM Neuro: COMMON NORMALS: patient oriented x3, moves all extremities and no focal motor deficits Psych: COMMON NORMALS: mental status grossly normal, Normal thought process present and cooperative THOUGHT PROCESS: Normal thought process present Skin: COMMON NORMALS: no rashes or lesions noted and no wounds GENERAL SKIN EXAM: no rashes or lesions noted Course Vital Signs: Vital signs: Vital Signs Temperature 98.1 F 11/26/22 14:19 Pulse Rate 71 11/26/22 14:19 Respiratory Rate 14 11/26/22 14:19 Blood Pressure 134/70 11/26/22 14:19 Pulse Oximetry 93 11/26/22 14:19 Oxygen Delivery Me thod Room Air 11/26/22 14:19 MDM - Fall Medical Decision Making Patient presents with closed head injury after a fall she is well-appearing here head CT is normal I did talk to her about safety at home and she needs to use her cane or walker at all times to prevent falls she is to follow-up with PCP and return if worsening. Medical Records I reviewed the patient's medical records. Lab Data Radiology Impressions Head CT 11/26/22 14:21 IMPRESSION: 1. Volume loss and moderate chronic microvascular disease. 2. No acute intracranial injury or lesion. No change from prior scan Discharge Plan Discharge Patient Disposition: Home Clinical Impression: Fall, CHI (closed head injury) Condition: Stable Prescriptions: No Action multivitamin Tablet 1 tab PO DAILY pantoprazole [Protonix] 40 mg tablet,delayed release (DR/EC) 40 mg PO BID 42 Days Qty: 84 0RF Levemir FlexTouch U-100 Insuln 100 unit/mL (3 mL) insulin pen 18 unit SUBCUT QPM insulin aspart U-100 [Novolog FlexPen U-100 Insulin] 100 unit/mL (3 mL) insulin pen See Rx Instructions SUBCUT BID Rx Instructions: 5-10 units based off blood sugar readings on the sliding scale SUBCUT twice a day; (DME) True Metrix Level 1 Solution See Rx Instructions .Route Qty: 1 11RF Rx Instructions: As directed with True metrix meter alcohol swabs [BD Alcohol Swabs] Pads, Medicated 1 pad topical TID 90 Days Qty: 300 3RF (DME) blood-glucose meter [True Metrix Air Glucose Meter] Kit See Rx Instructions .Route Qty: 1 0RF Rx Instructions: to use to check blood sugar TID (DME) True Metrix Glucose Test Strip Strip See Rx Instructions .Route Qty: 300 3RF Rx Instructions: to use in true metrix meter TID 90 day supply (DME) lancets [TRUEplus Lancets] 33 gauge misc See Rx Instructions .Route Qty: 300 3RF Rx Instructions: to use TID to check blood sugar 90 day supply carvedilol 3.125 mg tablet 3.125 mg PO BID@ Qty: 180 3RF sevelamer carbonate 2.4 gram powder in packet 7.2 g PO TID atorvastatin 40 mg tablet 40 mg PO BEDTIME Rx Instructions: TAKE 1 TABLET BY MOUTH AT BEDTIME aspirin 81 mg tablet,delayed release (DR/EC) 81 mg PO DAILY Rx Instructions: TAKE 1 TABLET BY MOUTH DAILY sertraline 50 mg tablet 50 mg PO DAILY Rx Instructions: TAKE 1 TABLET BY MOUTH EVERY 24 HOURS Discharge Orders: Discharge ED (Routine); Ordered 11/26/22 Ordered By: Devin Alfonso Referrals: Juancho Loyd MD [Primary Care Provider] - 1-3 days Discharge Diet: Advance as tolerated Discharge Activity: Resume usual activity Patient Instructions: Fall Prevention for Older Adults (ED), Head Injury (ED) Coding Level of Care Code ED Cardiac Surgeon for Ivett Koo
[2022-11-26 15:03] VITALS: BP 148/50; PULSE 69; O2SAT 98
== END 2022-11-26 15:06 | disposition home or self-care (01) ==
PROVIDERS: Emergency Provider Emergency Medicine; PCP Family Medicine
DX: S09.8XXA Other specified injuries of head, initial encounter (principal); Z79.82 Long term (current) use of aspirin; Z79.4 Long term (current) use of insulin; E11.22 Type 2 diabetes mellitus with diabetic chronic kidney disease; I13.2 Hypertensive heart and chronic kidney disease with heart failure and with stage 5 chronic kidney disease, or end stage renal disease; I50.9 Heart failure, unspecified; N18.6 End stage renal disease; Z99.2 Dependence on renal dialysis; W19.XXXA Unspecified fall, initial encounter
CPT/HCPCS: 70450; 99284

== ENCOUNTER 2022-11-28 06:01 | Emergency (ER) | payer MEDICARE, SELFPAY ==
[2022-11-28 06:01] VITALS: BMI 34.8
[2022-11-28 06:04] VITALS: BP 169/67; PULSE 67; RESP 16; TEMP 37.1; O2SAT 95
--- NOTE | 2022-11-28 06:39 | ECG_ITS ---
[facility] Test Date: 2022-11-28 Pat Name: Iris Rockwell Department: Room: Gender: Female Lpn Rn: : 1945 Requested By: Nimesh Marks Order Number: [id number] Coco MD: Bill Boston M.D. Measurements Intervals [place] Rate: 67 P: 57 [place]: 249 QRS: 84 QRSD: 167 T: 108 QT: 468 QTc: 494 Interpretive Statements SINUS RHYTHM WITH FIRST DEGREE AV BLOCK INTRAVENTRICULAR CONDUCTION DELAY [130+ ms QRS DURATION] Compared to ECG 09/15/2020 15:01:46 Intraventricular conduction delay now present T-wave abnormality no longer present Electronically Signed On 11-28-2022 16:44:06 CDT by Bill Boston M.D. [id number]
[2022-11-28 06:45] VITALS: BP 165/75; BP 173/71; BP 180/70; PULSE 65; PULSE 67; PULSE 68
[2022-11-28] MEDS: meclizine 25 mg tablet PO (06:49)
--- NOTE | 2022-11-28 06:51 | ED_ITS ---
HPI - Dizziness General: Chief Complaint: Dizziness Stated Complaint: VERTIGO Source: patient Mode of arrival: EMS History of Present Illness: HPI Narrative: 77-year-old female presents emergency room complaining of dizziness. She was seen 2 days ago after a fall CT of her head at that time was negative she has a history of end-stage renal disease she has not on any long-term anticoagulants she does take aspirin daily. She is also diabetic she reports she has not recently been ill she is not had any significantly abnormal blood sugars recently no change in her medications. She states her dizziness is better when she lays down with her eyes closed worse when she moves her head. Denies chest pain or shortness of breath. No localizing weakness symptoms MD elicited complaint: vertigo Onset (ago): day(s) Severity: moderate Description: room spinning Context: change in body position (change in head position) History of similar symptoms: Yes Exacerbating factors: change in body position Relieving factors: lying down and keeping eyes closed Associated symptoms: Reports headache(s); Denies abnormal vaginal bleeding, change in hearing, chest pain, chills, cough, diaphoresis, ear discharge, ear pressure, fevers/chills, malaise, nausea, nasal congestion, palpitations, rash, short of breath, syncope, tinnitus, vomiting or weakness Associated neuro symptoms: Deny confusion, difficulty speaking, dysphagia, dipl opia, extremity weakness, facial numbness, facial weakness, gait changes, numbness in extremities or visual changes Review of Systems Const: Denies: fever(s), chills, malaise or diaphoresis ENMT: Denies: ear discharge, change in hearing, tinnitus or nasal congestion Card: Denies: chest pain, palpitations or syncope Resp: Denies: dyspnea, productive cough or non-productive cough GI: Denies: abdominal pain, nausea, vomiting or dysphagia : Denies: flank pain, difficulty voiding, dysuria, urinary frequency or urinary urgency Skin/Breast: Denies: rash or pruritus Neuro: Reports: headache(s); Denies: numbness in extremities or confusion PFS ED PFSH: Medical History Acute exacerbation of CHF (congestive heart failure) Congestive heart failure Depression 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; s/p toe amputations due to diabetic foot infections Diabetes Diabetic neuropathy Diastolic CHF -Echo: EF=60%, G1DD, no RWMA, mild pulmonary HTN, mild , mild TR, trace MR ESRD on hemodialysis GERD (gastroesophageal reflux disease) -on PPI and carafate Hypercholesteremia -on statin Hypertension Hypertension ANA (obstructive sleep apnea) does not wear cpap by choice Takotsubo cardiomyopathy -had extensive workup done in [facility] in [place] in 06/2019; records reviewed -Echo with EF=43%, LVH, noted distal septal, apical and anterolateral hypokinesia/apical ballooning consistent with Takotsubo cardiomyopathy; mild MR. No mention of stress testing or cardiac cath. Records in chart -noted elevated troponins with no significant delta; unlikely to be acute process -telemetry monitoring -Echo: EF=60%, G1DD, no RWMA, mild pulmonary HTN, mild , mild TR, trace MR Transient cerebral ischemia Venous insufficiency (chronic) (peripheral) Surgical History 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 History of appendectomy History of bladder suspension procedure History of cataract surgery History of cholecystectomy History of drainage of abscess left vulvar/perineal area History of hernia repair History of surgery on arm left arm, due to extravasation History of total hysterectomy S/P hemodialysis catheter insertion (09/25/20) Family History Father CAD (coronary artery disease) by report, she never knew him Mother Breast cancer Grandmother Breast cancer Denies family history of Colon cancer Diabetes Hypertension Stroke Social History Smoking and tobacco status: never smoked Alcohol intake: current Alcohol intake frequency: holidays/special occasions only Substance/Drug Use: never Current occupational status: disabled Physical Exam Const: COMMON NORMALS: no acute distress GENERAL APPEARANCE: cooperative and comfortable ORIENTATION/CONSCIOUSNESS: Yes awake, Yes oriented to person, Yes oriented to place and Yes oriented to time HENMT: COMMON NORMALS: normocephalic, atraumatic, hearing grossly normal bilaterally, external ears normal, EAC's normal, TM's normal bilaterally and Normal nasal mucous membranes and turbinates present HEAD & SCALP: normocephalic and atraumatic NOSE: Normal nasal mucous membranes and turbinates present EXTERNAL EAR: Yes external ears normal EXTERNAL AUDITORY CANAL: EAC's normal TYMPANIC MEMBRANE: TM's normal bilaterally Eye: COMMON NORMALS: Equal, round and reactive pupils present, EOMs intact bilaterally, conjunctivae normal and no scleral icterus CONJUNCTIVA: Yes conjunctivae normal PUPIL: Yes Equal, round and reactive pupils present Neck/C-Spine: COMMON NORMALS: full ROM, no lymphadenopathy, supple and no JVD Lymph: LYMPHATIC: no lymphadenopathy noted and no lymphedema noted Resp: COMMON NORMALS: normal respiratory effort, No retractions, No use of accessory muscles and clear to auscultation bilaterally AUSCULTATION: clear to auscultation bilaterally Cardio: COMMON NORMALS: no JVD, regular rate, regular rhythm and No murmurs present (Cardio) RATE: regular rate RHYTHM: regular rhythm GI: COMMON NORMALS: Soft to palpation and No hepatosplenomegaly present AUSCULTATION: Yes normoactive bowel sounds PALPATION: Yes Soft to palpation, No Tenderness to palpation present (GI), No Guarding due to palpation present (GI) and Yes No hepatosplenomegaly present Extremity: COMMON NORMALS: normal to inspection, capillary refill normal, no clubbing, cyanosis or edema, no calf tenderness and no pedal edema Neuro: SENSORIUM/ORIENTATION: Yes oriented to person, Yes oriented to place and Yes oriented to time Skin: COMMON NORMALS: no rashes or lesions noted GENERAL SKIN EXAM: no rashes or lesions noted Course Vital Signs: Vital signs: Vital Signs Temperature 98.8 F 11/28/22 06:04 Pulse Rate 65 11/28/22 06:45 Respiratory Rate 16 11/28/22 06:04 Blood Pressure 180/70 11/28/22 06:45 Pulse Oximetry 95 11/28/22 06:04 Oxygen Delivery Me thod Room Air 11/28/22 06:04 MDM - Dizziness Medical Decision Making Reproducible vertigo primarily when moving her head to the right. Reproduced during exam. Previous ER notes reviewed including a previous CT still has a bit of a headache from not neurologically she is intact. Blood sugar evaluated and was normal. Chronic anemia and her end-stage renal disease evident on her labs. Differential diagnosis includes orthostasis positional vertigo anemia side effect of medications she is due for dialysis today. [facility] and have [facility] here directly to [facility] for her routine outpatient dialysis. Medical Records I reviewed the patient's medical records. Lab Data I reviewed the patient's lab results. 11/28/22 06:40 11/28/22 06:40 Laboratory Results WBC 12.6 10^3/uL (4.0-10.0) H 11/28/22 06:40 RBC 3.80 10^6/uL (4.1-5.3) L 11/28/22 06:40 Hgb 11.1 g/dL (11.5-15.3) L 11/28/22 06:40 Hct 35.5 % (37.0-47.0) L 11/28/22 06:40 MCV 93.4 fl (81-99) 11/28/22 06:40 MCH 29.2 pg (28.0-34.0) 11/28/22 06:40 MCHC 31.3 g/dL (30.0-36.0) 11/28/22 06:40 RDW 15.1 % (12.1-15.1) 11/28/22 06:40 Plt Count 414 10^3/cmm (130-400) H 11/28/22 06:40 MPV 11.5 fL (7.4-10.4) H 11/28/22 06:40 Lymph % (Auto) Not Reportable 11/28/22 06:40 Vilas % (Auto) Not Reportable 11/28/22 06:40 Lymph # (Auto) Not Reportable 11/28/22 06:40 [place] # (Auto) Not Reportable 11/28/22 06:40 Total Counted 100 (0-100) 11/28/22 06:40 Atypical Lymphs % 0.0 % (0-5) 11/28/22 06:40 Absolute Neutrophils 6.9 10^3/cmm (1.4-6.5) H 11/28/22 06:40 Segmented Neutrophils 53 % 11/28/22 06:40 Abs Segm Neuts (Man) 6.7 10/cmm (1.6-7.1) 11/28/22 06:40 Band Neutrophils 2.0 % 11/28/22 06:40 Abs Band Neuts (Man) 0.3 10^3/cmm (0.0-1.2) 11/28/22 06:40 Absolute Lymphocytes 3.3 10^3/cmm (1.2-3.4) 11/28/22 06:40 Lymphocytes (Manual) 26 % 11/28/22 06:40 Monocytes (Manual) 3.0 % 11/28/22 06:40 Absolute Monocytes 0.4 10^3/cmm (0.1-0.6) 11/28/22 06:40 Eosinophils (Manual) 11 % 11/28/22 06:40 Absolute Eosinophils 1.3 10^3/cmm (0.0-0.7) H 11/28/22 06:40 Basophils (Manual) 3.0 % 11/28/22 06:40 Absolute Basophils 0.4 10^3/cmm (0.0-0.2) H 11/28/22 06:40 Metamyelocytes 2.0 % 11/28/22 06:40 Platelet Estimate Increased (Normal) H 11/28/22 06:40 Giant Platelets Trace 11/28/22 06:40 Poikilocytosis 1+ H 11/28/22 06:40 Anisocytosis 1+ H 11/28/22 06:40 Spherocytes Trace 11/28/22 06:40 Sodium 136 mmol/L (136-145) 11/28/22 06:40 Potassium 3.7 mmol/L (3.5-5.1) 11/28/22 06:40 Chloride 97 mmol/L (98-107) L 11/28/22 06:40 Carbon Dioxide 26 mmol/L (22-29) 11/28/22 06:40 Anion Gap 16.7 (5-19) 11/28/22 06:40 BUN 36 mg/dL (8-23) H 11/28/22 06:40 Creatinine 5.1 mg/dL (0.5-0.9) H 11/28/22 06:40 GFR Calculation Not Reportable 11/28/22 06:40 Glucose 250 mg/dL (65-115) H 11/28/22 06:40 POC Glucose 243 mg/dL (70-110) H 11/28/22 06:49 Calculated Osmolality 299 mOsm/kg (285-295) H 11/28/22 06:40 Calcium 9.2 mg/dL (8.5-10.5) 11/28/22 06:40 Total Bilirubin 0.3 mg/dL (0.15-1.2) 11/28/22 06:40 AST 8 U/L (0-32) 11/28/22 06:40 ALT 7 U/L (0-33) 11/28/22 06:40 Alkaline Phosphatase 79 U/L (35-105) 11/28/22 06:40 Total Protein 6.1 g/dL (6.6-8.7) L 11/28/22 06:40 Albumin 3.4 g/dL (3.5-5.2) L 11/28/22 06:40 Globulin 2.7 g/dL (1.3-4.6) 11/28/22 06:40 Discharge Plan Discharge Patient Disposition: Home Clinical Impression: Benign paroxysmal positional vertigo, Anemia Condition: Stable Prescriptions: New meclizine 25 mg tablet 25 mg PO QID PRN (Reason: dizziness) Qty: 20 0RF No Action multivitamin Tablet 1 tab PO DAILY pantoprazole [Protonix] 40 mg tablet,delayed release (DR/EC) 40 mg PO BID 42 Days Qty: 84 0RF Levemir FlexTouch U-100 Insuln 100 unit/mL (3 mL) insulin pen 18 unit SUBCUT QPM insulin aspart U-100 [Novolog FlexPen U-100 Insulin] 100 unit/mL (3 mL) insulin pen See Rx Instructions SUBCUT BID Rx Instructions: 5-10 units based off blood sugar readings on the sliding scale SUBCUT twice a day; (DME) True Metrix Level 1 Solution See Rx Instructions .Route Qty: 1 11RF Rx Instructions: As directed with True metrix meter alcohol swabs [BD Alcohol Swabs] Pads, Medicated 1 pad topical TID 90 Days Qty: 300 3RF (DME) blood-glucose meter [True Metrix Air Glucose Meter] Kit See Rx Instructions .Route Qty: 1 0RF Rx Instructions: to use to check blood sugar TID (DME) True Metrix Glucose Test Strip Strip See Rx Instructions .Route Qty: 300 3RF Rx Instructions: to use in true metrix meter TID 90 day supply (DME) lancets [TRUEplus Lancets] 33 gauge misc See Rx Instructions .Route Qty: 300 3RF Rx Instructions: to use TID to check blood sugar 90 day supply carvedilol 3.125 mg tablet 3.125 mg PO BID@ Qty: 180 3RF sevelamer carbonate 2.4 gram powder in packet 7.2 g PO TID atorvastatin 40 mg tablet 40 mg PO BEDTIME Rx Instructions: TAKE 1 TABLET BY MOUTH AT BEDTIME aspirin 81 mg tablet,delayed release (DR/EC) 81 mg PO DAILY Rx Instructions: TAKE 1 TABLET BY MOUTH DAILY sertraline 50 mg tablet 50 mg PO DAILY Rx Instructions: TAKE 1 TABLET BY MOUTH EVERY 24 HOURS Discharge Orders: Discharge ED (Routine); Ordered 11/28/22 Ordered By: Nimesh Ramos Referrals: Juancho Loyd MD [Primary Care Provider] - Discharge Diet: Usual diet Discharge Activity: Increase activity as tolerated Patient Instructions: Benign Paroxysmal Positional Vertigo (ED), Opioid Safety, Pain Management Coding Level of Care Code ED Shoe Fitter for Ivett Koo
[2022-11-28 06:53] LABS: Hematocrit 35.5 % (37.0-47.0); Hemoglobin 11.1 g/dL (11.5-15.3); Mean Corpuscular HGB Conc 31.3 g/dL (30.0-36.0); Mean Corpuscular Hemoglobin 29.2 pg (28.0-34.0); Mean Corpuscular Volume 93.4 fl (81-99); Mean Platelet Volume 11.5 fL (7.4-10.4); Platelet Count 414 10^3/cmm (130-400); Red Cell Distribution Width 15.1 % (12.1-15.1); White Blood Count 12.6 10^3/uL (4.0-10.0)
[2022-11-28 06:56] LABS: Glucose Point of Care 243 mg/dL (70-110)
[2022-11-28 07:18] LABS: Alanine Aminotransferase 7 U/L (0-33); Albumin Level 3.4 g/dL (3.5-5.2); Alkaline Phosphatase 79 U/L (35-105); Anion Gap 16.7 (5-19); Aspartate Amino Transferase 8 U/L (0-32); Blood Urea Nitrogen 36 mg/dL (8-23); Calcium 9.2 mg/dL (8.5-10.5); Carbon Dioxide 26 mmol/L (22-29); Chloride 97 mmol/L (98-107); Globulin 2.7 g/dL (1.3-4.6); Glucose 250 mg/dL (65-115); Osmolality Calculated 299 mOsm/kg (285-295); Potassium 3.7 mmol/L (3.5-5.1); Sodium 136 mmol/L (136-145); Total Bilirubin 0.3 mg/dL (0.15-1.2); Total Protein 6.1 g/dL (6.6-8.7)
[2022-11-28 07:20] LABS: Creatinine Clr Calc Pharmacy 10.1575
[2022-11-28 07:33] LABS: Slide Review Slide Review Perform
[2022-11-28 07:36] LABS: Absolute Eosinophils 1.3 10^3/cmm (0.0-0.7); Absolute Segmented Neutrophil 6.7 10/cmm (1.6-7.1); Band Neutrophils Absolute 0.3 10^3/cmm (0.0-1.2); Basophils Absolute 0.4 10^3/cmm (0.0-0.2); Eosinophils 11 %; Lymphocytes 26 %; Monocytes Absolute 0.4 10^3/cmm (0.1-0.6); Segmented Neutrophils 53 %; Total Cells Counted 100 (0-100)
[2022-11-28 07:37] LABS: Lymphocytes Absolute 3.3 10^3/cmm (1.2-3.4)
[2022-11-28 07:38] LABS: Absolute Neutrophil 6.9 10^3/cmm (1.4-6.5); Anisocytosis 1+; Giant Platelets Trace; Platelet Estimate Increased (Normal); Poikilocytosis 1+; Spherocytes Trace
[2022-11-28 08:06] VITALS: PULSE 68; RESP 18; O2SAT 96
== END 2022-11-28 08:07 | disposition home or self-care (01) ==
PROVIDERS: Emergency Medicine; Emergency Provider Family Medicine; PCP Family Medicine
DX: H81.10 Benign paroxysmal vertigo, unspecified ear (principal); D64.9 Anemia, unspecified; E11.9 Type 2 diabetes mellitus without complications; I10 Essential (primary) hypertension
CPT/HCPCS: 36416; 80053; 82962; 85007; 85025; 93005; 99284; J8597

== ENCOUNTER → 2022-12-15 11:02 | Outpatient (BNVA) | payer MEDICARE, SELFPAY | PROVIDERS: PCP Family Medicine; Referring Provider Family Medicine; Visit Provider Dermatology | DX: L82.1 Other seborrheic keratosis (principal); L57.0 Actinic keratosis; L81.4 Other melanin hyperpigmentation; Z85.820 Personal history of malignant melanoma of skin | CPT/HCPCS: 17000; 17003; 99203 ==

== ENCOUNTER → 2023-02-22 13:39 | Outpatient (BNVA) | payer MEDICARE, SELFPAY | PROVIDERS: PCP Family Medicine; Visit Provider Internal Medicine Cardiovascular Disease | DX: I25.10 Atherosclerotic heart disease of native coronary artery without angina pectoris (principal); I13.2 Hypertensive heart and chronic kidney disease with heart failure and with stage 5 chronic kidney disease, or end stage renal disease; I50.23 Acute on chronic systolic (congestive) heart failure; E11.22 Type 2 diabetes mellitus with diabetic chronic kidney disease; N18.6 End stage renal disease; Z99.2 Dependence on renal dialysis; E78.00 Pure hypercholesterolemia, unspecified; E11.42 Type 2 diabetes mellitus with diabetic polyneuropathy; Z79.4 Long term (current) use of insulin; G47.33 Obstructive sleep apnea (adult) (pediatric) | CPT/HCPCS: 99214 ==

== ENCOUNTER 2023-03-07 14:01 | Outpatient (CLI) | payer MEDICARE, SELFPAY ==
--- NOTE | 2023-03-07 14:13 | XR_ITS ---
WS: [id number] Exam: XR chest 2V* [id number] Date/Time of Exam: 03/07/2023 2:18 PM Reason For Exam: SHORT OF BREATH Comparison 07/25/2021. Areas of plaque atelectasis in the mid and lower LEFT lung with moderate size LEFT pleural effusion. Mild cardiac enlargement. The RIGHT lung is clear. No pneumothorax. The mediastinum is normal in cont our. Bony structures are intact. IMPRESSION: 1. Left-sided pleural effusion. Effusion tracks along the lateral and superior LEFT lung. 2. Areas of plaque atelectasis in the lingula and LEFT lower lobe. 3. Cardiac enlargement unchanged.
== END 2023-03-07 14:02 | disposition home or self-care (01) ==
PROVIDERS: PCP Family Medicine; Visit Provider Registered Nurse
DX: J90 Pleural effusion, not elsewhere classified (principal); R06.02 Shortness of breath; J98.11 Atelectasis; I51.7 Cardiomegaly
CPT/HCPCS: 71046

== ENCOUNTER 2023-05-30 13:55 | Oncology outpatient (recurring) (ONCR) | payer MEDICARE, SELFPAY ==
[2023-05-30 17:04] LABS: Reticulocyte % 2.3 % (0.5-2.0)
[2023-05-30 17:05] LABS: Hematocrit 34.3 % (36-47); Mean Corpuscular HGB Conc 31.8 g/dL (30-55); Mean Corpuscular Hemoglobin 29.8 pg (27-33); Mean Corpuscular Volume 93.7 fl (85-98); Platelet Count 883 10^3/cmm (157-399); Red Blood Count 3.66 10^6/uL (3.85-5.65); Red Cell Distribution Width 16.6 % (12.1-15.1)
[2023-05-30 17:33] LABS: Alanine Aminotransferase 6 U/L (0-33); Albumin Level 3.6 g/dL (3.5-5.2); Alkaline Phosphatase 70 U/L (35-105); Anion Gap 18.2 (5-19); Aspartate Amino Transferase 12 U/L (0-32); Blood Urea Nitrogen 29 mg/dL (8-23); C Reactive Protein 26.9 mg/L (0.0-4.9); Calcium 9.6 mg/dL (8.5-10.5); Carbon Dioxide 28 mmol/L (22-29); Chloride 97 mmol/L (98-107); Glucose 160 mg/dL (65-115); Iron 45 ug/dL (37-145); Lactate Dehydrogenase 456 U/L (135-214); Osmolality Calculated 297 mOsm/kg (285-295); Percent Saturation 26.3 % (20-50); Potassium 4.2 mmol/L (3.5-5.1); Sodium 139 mmol/L (136-145); Total Bilirubin 0.3 mg/dL (0.15-1.2); Total Iron Binding Capacity 171 mcg/dl; Total Protein 6.6 g/dL (6.6-8.7); Unsaturated Iron Binding 126 ug/dL (112-347)
[2023-05-30 17:46] LABS: Immunoglobulin IGA 132 mg/dL (70-400); Immunoglobulin IGG 807 mg/dL (700-1600); Immunoglobulin IGM 63 mg/dL (40-230)
[2023-05-30 17:47] LABS: Ferritin 1440 ng/mL (15-150)
[2023-05-30 17:51] LABS: White Blood Count 38.87 10^3/uL (3.29-11.43)
[2023-05-30 18:09] LABS: Absolute Segmented Neutrophil 18.3 10/cmm (1.6-7.1); Band Neutrophils Absolute 4.3 10^3/cmm (0.0-1.2); Lymphocytes 12 %; Segmented Neutrophils 47 %; Slide Review Slide Review Perform; Total Cells Counted 100 (0-100)
[2023-05-30 18:10] LABS: Absolute Eosinophils 2.3 10^3/cmm (0.0-0.7); Absolute Neutrophil 22.5 10^3/cmm (1.4-6.5); Eosinophils 6 %; Giant Platelets 1+; Lymphocytes Absolute 5.1 10^3/cmm (1.2-3.4); Monocytes Absolute 1.9 10^3/cmm (0.1-0.6); Platelet Estimate Increased (Normal)
[2023-05-30 18:20] LABS: Uric Acid 5.1 mg/dL (2.4-5.7)
[2023-05-30 19:02] LABS: LAB Peripheral Smear Sent for Review
[2023-05-30 20:08] LABS: Vitamin B12 > 2000 pg/mL (232-1245)
[2023-06-01 10:50] LABS: PROTEIN, TOTAL 6.5 g/dL (6.1-8.1)
[2023-06-02 06:54] LABS: ALBUMIN 3.6 g/dL (3.8-4.8); ALPHA 1 GLOBULIN 0.4 g/dL (0.2-0.3); BETA 1 GLOBULIN 0.4 g/dL (0.4-0.6); BETA 2 GLOBULIN 0.4 g/dL (0.2-0.5); GAMMA GLOBULIN 0.8 g/dL (0.8-1.7)
[2023-06-02 11:43] LABS: KAPPA LIGHT CHAIN, FREE, SERUM 87.9 mg/L (3.3-19.4); KAPPA/LAMBDA LIGHT CHAINS FREE 1.35 (0.26-1.65); LAMBDA LIGHT CHAIN, FREE, SERU 64.9 mg/L (5.7-26.3)
[2023-06-02 13:52] LABS: Leukemia Profile (BBPL) See Report; Lymphoma Profile (BBPL) See Report
[2023-06-02 18:09] LABS: Soluble Transferrin Receptor 1.12 mg/L (0.76-1.76)
[2023-06-03 07:40] LABS: Methylmalonic Acid 907 nmol/L (87-318)
[2023-06-06 21:35] LABS: P190 BCR ALB1 NOT DETECTED; P190 BCR ALB1 Yes Test Yes; P210 BCR ALB1 DETECTED; P210 BCR ALB1 Yes Test Yes; Prior Results NG; Source blood
== END 2023-06-25 23:59 | disposition home or self-care (01) ==
PROVIDERS: Visit Provider Internal Medicine
DX: D72.829 Elevated white blood cell count, unspecified (principal); D75.839 Thrombocytosis, unspecified; D64.9 Anemia, unspecified; E11.42 Type 2 diabetes mellitus with diabetic polyneuropathy; D03.59 Melanoma in situ of other part of trunk; Z79.899 Other long term (current) drug therapy
CPT/HCPCS: 36415; 80053; 80503; 81206; 81207; 82607; 82728; 82746; 82784; 83540; 83550; 83615; 83883; 83921; 84155; 84165; 84238; 84550; 85007; 85025; 85045; 86140; 86334; 88184; 88185; 99204

== ENCOUNTER 2023-05-31 12:41 | Outpatient (RCR) | payer MEDICARE, SELFPAY | END 2023-06-25 23:59 | disposition home or self-care (01) | LOC: SPT 12:41 | PROVIDERS: Visit Provider Otolaryngology | DX: H81.11 Benign paroxysmal vertigo, right ear (principal) | CPT/HCPCS: 95992; 97161 ==

== ENCOUNTER 2023-07-07 06:20 | Emergency (ER) | payer MEDICARE, SELFPAY ==
[2023-07-07 06:22] VITALS: BP 144/79; PULSE 66; RESP 18; TEMP 36.6; O2SAT 89; BMI 33.4
--- NOTE | 2023-07-07 06:26 | XRR_ITS ---
PROCEDURE INFORMATION: Exam: XR Chest Exam date and time: 07/07/2023 6:55 AM Age: 77 years old Clinical indication: Shortness of breath; Additional info: SOB TECHNIQUE: Imaging protocol: Radiologic exam of the chest. Views: 1 view. 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 I doubt that there is a superimposed infiltrate but that possibility exists. Hypoventilatory changes plus fibrosis in the right lower lobe. Pleural spaces: Unremarkable. No pleural effusion. No pneumothorax. Heart/Mediastinum: No change in the heart or mediastinum. Bones/joints: Unremarkable. XR/XR chest 1V portable [id number] IMPRESSION: Chronic changes which are probably unchanged when differences in technique are taken into account.
[2023-07-07 06:34] LABS: Mean Corpuscular HGB Conc 31.8 g/dL (30-55); Mean Corpuscular Hemoglobin 29.3 pg (27-33); Mean Corpuscular Volume 92.4 fl (85-98); Platelet Count 798 10^3/cmm (157-399); Red Blood Count 3.68 10^6/uL (3.85-5.65)
--- NOTE | 2023-07-07 06:34 | ECG_ITS ---
[facility] Test Date: 2023-07-07 Pat Name: Iris Rockwell Department: Room: Gender: Female Experience Designer: : 1945 Requested By: Devin Alfonso Order Number: [id number] Coco MD: Betzy Dorantes M.D. Measurements Intervals [place] Rate: 66 P: 50 [place]: 283 QRS: 38 QRSD: 111 T: 85 QT: 453 QTc: 476 Interpretive Statements SINUS RHYTHM WITH FIRST DEGREE AV BLOCK WITH OCCASIONAL SUPRAVENTRICULAR PREMATURE COMPLEXES MODERATE INTRAVENTRICULAR CONDUCTION DELAY [110+ ms QRS DURATION] MODERATE ST DEPRESSION [0.05+ mV ST DEPRESSION] Compared to ECG 11/28/2022 06:49:50 ST (T wave) deviation now present Electronically Signed On 07-07-2023 13:42:41 DUCK OPERATOR by Betzy Dorantes M.D. [id number]
--- NOTE | 2023-07-07 06:37 | ED_ITS ---
HPI - SOB/Dyspnea 2 General: Chief Complaint: Shortness of Breath/Dyspnea Stated Complaint: SOB Time Seen by Provider: 07/07/23 06:21 Source: patient and EMS Mode of arrival: EMS Limitations: no limitations History of Present Illness: HPI Narrative: 77-year-old female has a history of leuk emia along with end-stage renal disease on dialysis. She states that she has had increasing shortness of breath over the last day especially with exertion she denies any cough denies any fever. She gets dialysis Monday states she felt too short of breath this morning to go to dialysis. Associated symptoms: Deny abdominal pain, chest pain, fever(s), nausea or vomiting Review of Systems 2 Const: Denies: fever(s), chills, body aches or change in appetite ENMT: Denies: throat pain or dental pain Card: Denies: chest pain Resp: Reports: dyspnea GI: Denies: abdominal pain, nausea, vomiting or diarrhea Musc: Denies: neck pain or back pain Skin/Breast: Denies: rash Neuro: Denies: headache(s) PFSH ED 2 PFSH: Medical History Chronic myeloid leukemia Leukocytosis Thrombocytosis ESRD on hemodialysis Diabetes Hypertension Congestive heart failure Acute exacerbation of CHF (congestive heart failure) Takotsubo cardiomyopathy -had extensive workup done in [facility] in [place] in 06/2019; records reviewed -Echo with EF=43%, LVH, noted distal septal, apical and anterolateral hypokinesia/apical ballooning consistent with Takotsubo cardiomyopathy; mild MR. No mention of stress testing or cardiac cath. 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; s/p toe amputations due to diabetic foot infections Hypertension Surgical History S/P hemodialysis catheter insertion (09/25/20) History of cataract surgery History of surgery on arm left arm, due to extravasation History of drainage of abscess left vulvar/perineal area History of bladder suspension procedure History of hernia repair History of total hysterectomy History of cholecystectomy History of appendectomy 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 Family History Father CAD (coronary artery disease) by report, she never knew him Mother Breast cancer Grandmother Breast cancer Denies family history of Colon cancer Diabetes Hypertension Stroke Social History Smoking and tobacco/nicotine status: never used tobacco/nicotine Alcohol intake: current Alcohol intake frequency: holidays/special occasions only Substance/Drug Use: never Current occupational status: disabled Physical Exam 2 Const: COMMON NORMALS: no acute distress, patient oriented x3 and healthy appearing HENMT: COMMON NORMALS: normocephalic and atraumatic HEAD & SCALP: n ormocephalic and atraumatic Eye: COMMON NORMALS: Equal, round and reactive pupils present and EOMs intact bilaterally PUPIL: Yes Equal, round and reactive pupils present Neck/C-Spine: COMMON NORMALS: full ROM and supple Chest: COMMONS NORMALS: normal inspection of the chest Resp: COMMON NORMALS: normal respiratory effort, No retractions, No use of accessory muscles and clear to auscultation bilaterally AUSCULTATION: clear to auscultation bilaterally Cardio: COMMON NORMALS: regular rate, regular rhythm and No murmurs present (Cardio) RATE: regular rate RHYTHM: regular rhythm Extremity: COMMON NORMALS: normal to inspection and full ROM Neuro: COMMON NORMALS: patient oriented x3, moves all extremities and no focal motor deficits Psych: COMMON NORMALS: mental status grossly normal, Normal thought process present and cooperative THOUGHT PROCESS: Normal thought process present Skin: COMMON NORMALS: no rashes or lesions noted and no wounds GENERAL SKIN EXAM: no rashes or lesions noted Course 2 Vital Signs: Vital signs: Vital Signs Temperature 97.8 F 07/07/23 06:22 Pulse Rate 65 07/07/23 07:56 Respiratory Rate 18 07/07/23 06:22 Blood Pressure 166/70 07/07/23 07:56 Pulse Oximetry 92 07/07/23 09:09 Oxygen Delivery Me thod Nasal Cannula 07/07/23 07:56 Oxygen Flow Rate 2 07/07/23 09:09 MDM - SOB/Dyspnea Medical Decision Making Patient presents here with dyspnea is chronic in nature CT does show some atelectasis that is chronic as well she does have some hypoxia here does qualify for 2 L of home oxygen we will place her on 2 L home O2 she has no acute findings here we will get her follow-up with pulmonology did speak to her dialysis clinic and she is to receive dialysis today at 3 she is return if worsening. Medical Records I reviewed the patient's medical records. Lab Data I reviewed the patient's lab results. 07/07/23 06:03 07/07/23 06:03 Labs/Radiology: Radiology Impressions Chest X-Ray 07/07/23 06:26 IMPRESSION: Chronic changes which are probably unchanged when differences in technique are taken into account. Laboratory Results WBC 49.03 10^3/uL (3.29-11.43) H* 07/07/23 06:03 RBC 3.68 10^6/uL (3.85-5.65) L 07/07/23 06:03 Hgb 10.80 g/dL (11.27-16.99) L 07/07/23 06:03 Hct 34.0 % (36-47) L 07/07/23 06:03 MCV 92.4 fl (85-98) 07/07/23 06:03 MCH 29.3 pg (27-33) 07/07/23 06:03 MCHC 31.8 g/dL (30-55) 07/07/23 06:03 RDW 17.0 % (12.1-15.1) H 07/07/23 06:03 Plt Count 798 10^3/cmm (157-399) H 07/07/23 06:03 MPV 11.0 fL (7.4-10.4) H 07/07/23 06:03 Lymph % (Auto) Not Reportable 07/07/23 06:03 Russell % (Auto) Not Reportable 07/07/23 06:03 Lymph # (Auto) Not Reportable 07/07/23 06:03 Russell # (Auto) Not Reportable 07/07/23 06:03 Total Counted 100 (0-100) 07/07/23 06:03 Atypical Lymphs % 0.0 % (0-5) 07/07/23 06:03 Absolute Neutrophils 29.9 10^3/cmm (1.4-6.5) H 07/07/23 06:03 Segmented Neutrophils 52 % 07/07/23 06:03 Abs Segm Neuts (Man) 25.5 10/cmm (1.6-7.1) H 07/07/23 06:03 Band Neutrophils 9.0 % 07/07/23 06:03 Abs Band Neuts (Man) 4.4 10^3/cmm (0.0-1.2) H 07/07/23 06:03 Absolute Lymphocytes 4.9 10^3/cmm (1.2-3.4) H 07/07/23 06:03 Lymphocytes (Manual) 10 % 07/07/23 06:03 Monocytes (Manual) 1.0 % 07/07/23 06:03 Absolute Monocytes 0.5 10^3/cmm (0.1-0.6) 07/07/23 06:03 Eosinophils (Manual) 4 % 07/07/23 06:03 Absolute Eosinophils 2.0 10^3/cmm (0.0-0.7) H 07/07/23 06:03 Basophils (Manual) 0.0 % 07/07/23 06:03 Absolute Basophils 0.0 10^3/cmm (0.0-0.2) 07/07/23 06:03 Metamyelocytes 15.0 % 07/07/23 06:03 Myelocytes 9.0 % 07/07/23 06:03 Platelet Estimate Increased (Normal) H 07/07/23 06:03 D-Dimer 1.04 ug/mLFEU (0-0.59) H 07/07/23 06:03 Sodium 138 mmol/L (136-145) 07/07/23 06:03 Potassium 3.8 mmol/L (3.5-5.1) 07/07/23 06:03 Chloride 95 mmol/L (98-107) L 07/07/23 06:03 Carbon Dioxide 29 mmol/L (22-29) 07/07/23 06:03 Anion Gap 17.8 (5-19) 07/07/23 06:03 BUN 23 mg/dL (8-23) 07/07/23 06:03 Creatinine 4.4 mg/dL (0.5-0.9) H 07/07/23 06:03 GFR Calculation Not Reportable 07/07/23 06:03 Glucose 225 mg/dL (65-115) H 07/07/23 06:03 Calculated Osmolality 297 mOsm/kg (285-295) H 07/07/23 06:03 Calcium 9.6 mg/dL (8.5-10.5) 07/07/23 06:03 Total Bilirubin 0.3 mg/dL (0.15-1.2) 07/07/23 06:03 AST 12 U/L (0-32) 07/07/23 06:03 ALT 7 U/L (0-33) 07/07/23 06:03 Alkaline Phosphatase 72 U/L (35-105) 07/07/23 06:03 Troponin T Baseline 68 ng/L (0-10) H 07/07/23 06:03 Troponin T 120 Minute 52.28 ng/L (0-10) H 07/07/23 08:10 Delta Troponin T -15.72 ABS# (0-10) L 07/07/23 08:10 NT-Pro-B Natriuret Pep 09272 pg/mL (0-450) H 07/07/23 06:03 Total Protein 6.4 g/dL (6.6-8.7) L 07/07/23 06:03 Albumin 3.6 g/dL (3.5-5.2) 07/07/23 06:03 Globulin 2.8 g/dL (1.3-4.6) 07/07/23 06:03 Influenza Type A Ag negative (Negative) 07/07/23 06:58 Influenza Type B Ag negative (Negative) 07/07/23 06:58 SARS-CoV-2 RNA (RT-PCR) Cancelled 07/07/23 06:58 All radiology interpretation(s) finalized by discharge EKG Data EKG 1: I personally reviewed and interpreted this EKG as follows: EKG Interpretation Date: 07/07/23 EKG interpretation time: 06:34 Interpretation: nsr hr [address] elevation qrs 111 qtc 466 Discharge Plan Discharge Patient Disposition: Home Clinical Impression: End stage chronic kidney disease, Dyspnea Condition: Stable Prescriptions: No Action Macular Vitamin 500-5-1 mcg-mg-mg tablet 1 tab PO QAM alpha lipoic acid 100 mg capsule 100 mg PO DAILY (DME) True Metrix Level 1 Solution See Rx Instructions .Route Qty: 1 11RF Rx Instructions: As directed with True metrix meter (DME) True Metrix Glucose Test Strip Strip See Rx Instructions .Route Qty: 300 3RF Rx Instructions: to use in true metrix meter TID 90 day supply (DME) lancets [TRUEplus Lancets] 33 gauge misc See Rx Instructions .Route Qty: 300 3RF Rx Instructions: to use TID to check blood sugar 90 day supply carvedilol 3.125 mg tablet 3.125 mg PO BID@ Qty: 180 3RF sevelamer carbonate 2.4 gram powder in packet 7.2 g PO TID atorvastatin 40 mg tablet 40 mg PO BEDTIME aspirin 81 mg tablet,delayed release (DR/EC) 81 mg PO QAM Protonix 40 mg tablet,delayed release (DR/EC) 40 mg PO QAM folic acid 1 mg tablet 1 mg PO QAM sertraline 50 mg tablet 50 mg PO QAM Novolog FlexPen U-100 Insulin 100 unit/mL (3 mL) insulin pen See Rx Instructions .ROUTE .COMPLEX Rx Instructions: 5-10 units by subcutaneous injection twice daily based off blood sugar readings on the sliding scale Levemir FlexTouch U100 Insulin 100 unit/mL (3 mL) insulin pen 30 unit SUBCUT QPM mecobalamin (vitamin B12) 1,000 mcg tablet,disintegrating 1,000 mcg sublingual QAM Discharge Orders: Discharge ED (Routine); Ordered 07/07/23 Ordered By: Devin Alfonos Other Ambulatory Orders: DME: Oxygen (Order) Location: None Selected Ordered By: Devin Alfonso Discharge Diet: Advance as tolerated Discharge Activity: Resume usual activity Patient Instructions: Dyspnea (ED) Coding Level of Care Code ED [place] [facility] for Ivett Koo
[2023-07-07 07:00] LABS: Alanine Aminotransferase 7 U/L (0-33); Albumin Level 3.6 g/dL (3.5-5.2); Alkaline Phosphatase 72 U/L (35-105); Anion Gap 17.8 (5-19); Aspartate Amino Transferase 12 U/L (0-32); Blood Urea Nitrogen 23 mg/dL (8-23); Calcium 9.6 mg/dL (8.5-10.5); Carbon Dioxide 29 mmol/L (22-29); Chloride 95 mmol/L (98-107); Globulin 2.8 g/dL (1.3-4.6); Glucose 225 mg/dL (65-115); NT Pro B Type Natriuretic Pept 14328 pg/mL (0-450); Osmolality Calculated 297 mOsm/kg (285-295); Potassium 3.8 mmol/L (3.5-5.1); Slide Review Slide Review Perform; Sodium 138 mmol/L (136-145); Total Bilirubin 0.3 mg/dL (0.15-1.2); Total Protein 6.4 g/dL (6.6-8.7)
[2023-07-07 07:01] LABS: Absolute Neutrophil 29.9 10^3/cmm (1.4-6.5); Absolute Segmented Neutrophil 25.5 10/cmm (1.6-7.1); Band Neutrophils Absolute 4.4 10^3/cmm (0.0-1.2); Eosinophils 4 %; Lymphocytes 10 %; Lymphocytes Absolute 4.9 10^3/cmm (1.2-3.4); Monocytes Absolute 0.5 10^3/cmm (0.1-0.6); Platelet Estimate Increased (Normal); Segmented Neutrophils 52 %; Total Cells Counted 100 (0-100); White Blood Count 49.03 10^3/uL (3.29-11.43)
[2023-07-07 07:11] LABS: D Dimer 1.04 ug/mLFEU (0-0.59)
[2023-07-07 07:13] LABS: Troponin(5th) Baseline 68 ng/L (0-10)
--- NOTE | 2023-07-07 07:13 | CT_ITS ---
WS: [id number] CTA OF THE CHEST WITH PULMONARY EMBOLISM PROTOCOL TECHNIQUE: High-resolution contrast enhanced CTA of the chest with coronal and sagittal reformatted i mages with pulmonary embolism protocol. MIP images are also reviewed. CLINICAL INFORMATION: sob COMPARISON: None. DLP: 480.[address] scans at [facility] use at least one of these dose optimization techniques: automated e xposure control; mA and/or kV adjustment per patient size (includes targeted exams where dose is matc hed to clinical indication); or iterative reconstruction. FINDINGS: Proximal main pulmonary arteries are normal. Normal segmental and subsegmental pulmonary arteries. No evidence of pulmonary embolus. Normal caliber thoracic aorta. Aortic calcification. Coronary calcification. Tiny pleural effusions w ith compressive atelectasis in the LEFT greater than RIGHT lower lobes. Volume loss LEFT lung similar to the prior studies. Numerous mediastinal and parabronchial lymph nodes with a few enlarged RIGHT paratracheal lymph nodes nonspecific but may be reactive. This is similar to 2020 Adrenal glands are normal. Splenic artery calcification. Tiny esophageal hernia. Hypertrophic changes thoracic spine. Mild thoracic curve. Bronchiectasis LEFT lower lobe. IMPRESSION: 1. No evidence of pulmonary embolus. 2. Small LEFT greater than RIGHT pleural effusions with compressive atelectasis LEFT lower lobe. Tra ction bronchiectasis LEFT lower lobe. 3. Volume loss LEFT lung with mild circumferential pleural thickening and pleural fluid. Consider fo llow-up pulmonary consult. 4. Small esophageal hiatal hernia. 5. A few enlarged paratracheal lymph nodes nonspecific but may be reactive similar to 2020.
[2023-07-07] MEDS: iohexol 350 mg/mL 500 mL Btl (per mL) IV (07:34)
[2023-07-07 07:41] LABS: Influenza A by IFA negative (Negative); Influenza B by IFA negative (Negative)
[2023-07-07 07:56] VITALS: BP 166/70; PULSE 65; O2SAT 97
[2023-07-07 08:50] LABS: Troponin 5 2HR 52.28 ng/L (0-10)
[2023-07-07 09:09] VITALS: O2SAT 85; O2SAT 92; O2SAT 93
[2023-07-07 09:22] LABS: Adenovirus Not Detected (NOT DETECT); Chlamydia Pneumoniae Not Detected (NOT DETECT); Coronavirus 229E,HKU1,NL63,OC4 Not Detected (NOT DETECT); Human Metapneumovirus Not Detected (NOT DETECT); Human Rhinovirus/Enterovirus Not Detected (NOT DETECT); Influenza A Not Detected (NOT DETECT); Influenza A H1 Not Detected (NOT DETECT); Influenza A H1-2009 Not Detected (NOT DETECT); Influenza A H3 Not Detected (NOT DETECT); Influenza B Not Detected (NOT DETECT); Mycoplasma Pneumoniae Not Detected (NOT DETECT); Parainfluenza Virus Type 1 Not Detected (NOT DETECT); Parainfluenza Virus Type 2 Not Detected (NOT DETECT); Parainfluenza Virus Type 3 Not Detected (NOT DETECT); Parainfluenza Virus Type 4 Not Detected (NOT DETECT); Respiratory Syncytial Virus A Not Detected (NOT DETECT); Respiratory Syncytial Virus B Not Detected (NOT DETECT); SARS-COV-2 Not Detected (NOT DETECT)
--- NOTE | 2023-07-07 09:36 | DCPLANNER ---
Message was sent to pulmonology on 07/07/23 at 0936. Clinic to contact patient.
== END 2023-07-07 10:55 | disposition home or self-care (01) ==
PROVIDERS: Emergency Provider Emergency Medicine
DX: R06.00 Dyspnea, unspecified (principal); E11.22 Type 2 diabetes mellitus with diabetic chronic kidney disease; I13.2 Hypertensive heart and chronic kidney disease with heart failure and with stage 5 chronic kidney disease, or end stage renal disease; I50.9 Heart failure, unspecified; N18.6 End stage renal disease; Z99.2 Dependence on renal dialysis; Z11.52 Encounter for screening for COVID-19
CPT/HCPCS: 36415; 71045; 71275; 80053; 83880; 84484; 85007; 85025; 85378; 87635; 87804; 93005; 99285; Q9967

== ENCOUNTER 2023-07-25 13:11 | Outpatient (CLI) | payer MEDICARE, SELFPAY ==
--- NOTE | 2023-07-25 13:30 | US_ITS ---
WS: [id number] Limited abdomen ultrasound. HISTORY: CML. COMPARISON: 09/17/2020. Liver normal size at 13 cm. Normal portal vein. Spleen measures 10.9 cm in length. Normal concave hilum. IMPRESSION: Normal size liver and spleen.
--- NOTE | 2023-07-25 14:00 | USCV_ITS ---
Iris Rockwell Age: 77 Gender: F : 1945 Exam Date: 07/25/2023 13:40 Ordering Phys: Dede Rayo MD Technologist: Erasmo Butts Exam Location: [facility] Indication: HIGH RISK MEDS BP: 148 / 62 HR: 75 Rhythm: Sinus Technical Quality: Adequate MEASUREMENTS (Male / Female) Normal Values 2D ECHO LVOT Diameter 2.0 cm LA Diameter 3.4 cm M-MODE Aortic Annulus Diameter 2.8 cm LA Ao Ratio MM 1.3 MV E Point Septal Separation 1.0 cm FINDINGS Left Ventricle Mild diffuse hypokinesia left ventricular ejection fraction of 45 to 50%. Mildly dilated LV cavity. Right Ventricle The right ventricle is normal in size and function. Right Atrium The right atrium is normal in size. Left Atrium Mildly increased left atrial size. Mitral Valve Thickened mitral valve. Moderate to heavy mitral annular calcification. Aortic Valve Thickened aortic valve. Tricuspid Valve Minimally thickened Pulmonic Valve Pulmonic valve not well visualized. Pericardium No pericardial effusion. Aorta Normal aortic annulus size. IVC Inferior vena cava not visualized. CONCLUSIONS Mild diffuse hypokinesia left ventricular ejection fraction of 45 to 50%. Mildly increased left atrial size. Thickened mitral valve. Moderate to heavy mitral annular calcification. Thickened aortic valve. Mildly dilated LV cavity. Compared to the study from 09/23/2020, there may not be significant change Dr Betzy Dorantes MD [facility] (Electronically Signed) Final Date: 13 August 2023 21:37 S
== END 2023-07-25 13:12 | disposition home or self-care (01) ==
LOC: RAD 13:13
PROVIDERS: PCP Family Medicine; Visit Provider Internal Medicine
DX: C92.10 Chronic myeloid leukemia, BCR/ABL-positive, not having achieved remission (principal); I50.9 Heart failure, unspecified
CPT/HCPCS: 76705; 93308

== ENCOUNTER 2023-07-26 14:00 | Oncology outpatient (recurring) (ONCR) | payer MEDICARE, SELFPAY ==
[2023-06-28 13:25] VITALS: BP 147/62; PULSE 81; RESP 16; TEMP 36.3
[2023-06-28 14:03] LABS: Hematocrit 34.2 % (36-47); Mean Corpuscular HGB Conc 32.5 g/dL (30-55); Mean Corpuscular Hemoglobin 29.6 pg (27-33); Mean Corpuscular Volume 91.2 fl (85-98); Platelet Count 784 10^3/cmm (157-399); Red Blood Count 3.75 10^6/uL (3.85-5.65); Red Cell Distribution Width 16.9 % (12.1-15.1)
[2023-06-28 14:20] LABS: Alanine Aminotransferase 6 U/L (0-33); Albumin Level 3.6 g/dL (3.5-5.2); Alkaline Phosphatase 69 U/L (35-105); Aspartate Amino Transferase 14 U/L (0-32); Blood Urea Nitrogen 14 mg/dL (8-23); C Reactive Protein 15.4 mg/L (0.0-4.9); Calcium 9.4 mg/dL (8.5-10.5); Carbon Dioxide 32 mmol/L (22-29); Chloride 95 mmol/L (98-107); Globulin 3.1 g/dL (1.3-4.6); Glucose 205 mg/dL (65-115); Lactate Dehydrogenase 481 U/L (135-214); Osmolality Calculated 292 mOsm/kg (285-295); Sodium 138 mmol/L (136-145); Total Bilirubin 0.3 mg/dL (0.15-1.2); Total Protein 6.7 g/dL (6.6-8.7)
[2023-06-28 14:32] LABS: Ferritin 1602 ng/mL (15-150)
[2023-06-28 15:08] LABS: White Blood Count 44.72 10^3/uL (3.29-11.43)
[2023-06-28 15:15] LABS: Slide Review Slide Review Perform
[2023-06-28 15:16] LABS: Absolute Eosinophils 2.7 10^3/cmm (0.0-0.7); Absolute Neutrophil 30.9 10^3/cmm (1.4-6.5); Absolute Segmented Neutrophil 30.9 10/cmm (1.6-7.1); Anisocytosis 2+; Eosinophils 6 %; Erythrocyte Sedimentation Rate 64 mm/hr (0-15); Giant Platelets 1+; Lymphocytes 7 %; Platelet Estimate Increased (Normal); Segmented Neutrophils 69 %; Total Cells Counted 100 (0-100)
[2023-07-26 14:36] LABS: Hematocrit 36.4 % (36-47); Mean Corpuscular HGB Conc 32.4 g/dL (30-55); Mean Corpuscular Hemoglobin 29.8 pg (27-33); Mean Corpuscular Volume 91.9 fl (85-98); Mean Platelet Volume 10.7 fL (7.4-10.4); Platelet Count 867 10^3/cmm (157-399); Red Blood Count 3.96 10^6/uL (3.85-5.65); Red Cell Distribution Width 18.6 % (12.1-15.1)
[2023-07-26 14:57] LABS: Alanine Aminotransferase 8 U/L (0-33); Alkaline Phosphatase 68 U/L (35-105); Aspartate Amino Transferase 17 U/L (0-32); Blood Urea Nitrogen 17 mg/dL (8-23); Calcium 9.5 mg/dL (8.5-10.5); Carbon Dioxide 33 mmol/L (22-29); Chloride 95 mmol/L (98-107); Globulin 3.7 g/dL (1.3-4.6); Glucose 127 mg/dL (65-115); Osmolality Calculated 289 mOsm/kg (285-295); Sodium 138 mmol/L (136-145); Total Bilirubin 0.4 mg/dL (0.15-1.2); Total Protein 7.7 g/dL (6.6-8.7)
[2023-07-26 15:00] LABS: Anion Gap 13.8 (5-19); Lactate Dehydrogenase 629 U/L (135-214); Potassium 3.8 mmol/L (3.5-5.1)
[2023-07-26 15:45] LABS: White Blood Count 62.15 10^3/uL (3.29-11.43)
[2023-07-26 15:54] LABS: Band Neutrophils Absolute 9.9 10^3/cmm (0.0-1.2); Slide Review Slide Review Perform; Total Cells Counted 100 (0-100)
[2023-07-26 15:55] LABS: Absolute Eosinophils 3.1 10^3/cmm (0.0-0.7); Absolute Neutrophil 42.9 10^3/cmm (1.4-6.5); Absolute Segmented Neutrophil 32.9 10/cmm (1.6-7.1); Eosinophils 5 %; Estmated Average Glucose 163; Hemoglobin A1C 7.3 % (4.0-6.0); Lymphocytes 6 %; Lymphocytes Absolute 4.4 10^3/cmm (1.2-3.4); Monocytes Absolute 1.9 10^3/cmm (0.1-0.6); Platelet Estimate Increased (Normal); Segmented Neutrophils 53 %
[2023-07-26 15:56] LABS: Anisocytosis 2+; Giant Platelets 1+; Polychromasia Trace
[2023-07-26 16:51] LABS: Uric Acid 3.9 mg/dL (2.4-5.7)
[2023-07-26 17:08] LABS: Folate Level > 20.0 ng/mL (4.8-37.3)
[2023-07-30 09:19] LABS: Methylmalonic Acid 336 nmol/L (87-318)
== END 2023-07-26 23:59 | disposition home or self-care (01) ==
PROVIDERS: Family Medicine; Visit Provider Internal Medicine
DX: E11.42 Type 2 diabetes mellitus with diabetic polyneuropathy; Z79.899 Other long term (current) drug therapy; C92.10 Chronic myeloid leukemia, BCR/ABL-positive, not having achieved remission; E11.22 Type 2 diabetes mellitus with diabetic chronic kidney disease; I13.2 Hypertensive heart and chronic kidney disease with heart failure and with stage 5 chronic kidney disease, or end stage renal disease; I50.9 Heart failure, unspecified; N18.6 End stage renal disease; Z99.2 Dependence on renal dialysis; Z79.4 Long term (current) use of insulin; Z53.9 Procedure and treatment not carried out, unspecified reason
CPT/HCPCS: 36415; 76705; 80053; 82728; 82746; 83036; 83615; 83921; 84550; 85007; 85025; 85651; 86140; 93308; 99214

== ENCOUNTER 2023-08-25 17:59 | Emergency (ER) | payer MEDICARE, SELFPAY ==
[2023-08-25 18:01] VITALS: BP 122/58; PULSE 68; RESP 16; TEMP 36.7; O2SAT 95; BMI 31.9
--- NOTE | 2023-08-25 18:12 | XRR_ITS ---
PROCEDURE INFORMATION: Exam: XR Chest Exam date and time: 08/25/2023 6:33 PM Age: 77 years old Clinical indication: Shortness of breath; Additional info: Dyspnea TECHNIQUE: Imaging protocol: Radiologic exam of the chest. Views: 1 view. COMPARISON: 1. CT angio chest PE protcl [id number] 07/07/2023 7:22 AM 2. Chest radiograph 07/07/2023 FINDINGS: Lungs: Moderate nonspecific interstitial coarsening, similar compared to prior chest radiograph. Persistent left basilar opacity consistent with small effusion and adjacent atelectasis and/or consolidation. Newly apparent patchy nodular opacities in the right lung base. Pleural spaces: Small left pleural effusion. No pneumothorax. Stable left apical pleural thickening. Heart/Mediastinum: Unremarkable. No cardiomegaly. Vasculature: Atherosclerotic calcifications of the aorta are noted. Bones/joints: Unremarkable. XR/XR chest 1V portable [id number] IMPRESSION: 1. Small left pleural effusion with adjacent atelectasis and/or consolidation. Stable to slightly improved compared to 07/07/2023. 2. Stable diffuse interstitial opacification with mildly worsening nodular opacities in the right lung base which may represent atelectasis or developing consolidation.
--- NOTE | 2023-08-25 18:18 | ECG_ITS ---
[facility] Test Date: 2023-08-25 Pat Name: Iris Rockwell Department: Room: Gender: Female Service Parts Coordinator: : 1945 Requested By: Clif Burgess Order Number: [id number] Coco MD: Bill Boston M.D. Measurements Intervals [place] Rate: 67 P: 41 ND: 226 QRS: 34 QRSD: 104 T: 53 QT: 475 QTc: 503 Interpretive Statements SINUS RHYTHM WITH FIRST DEGREE AV BLOCK LOW QRS VOLTAGE IN PRECORDIAL LEADS [QRS DEFLECTION < 1.0 mV IN CHEST LEADS] MINIMAL ST DEPRESSION [0.025+ mV ST DEPRESSION] PROLONGED QT INTERVAL Compared to ECG 07/07/2023 06:34:49 Low QRS voltage now present Prolonged QT interval now present Intraventricular conduction delay no longer present ST (T wave) deviation still present Electronically Signed On 08-26-2023 10:07:39 CREATIVE WRITING PROFESSOR by Bill Boston M.D. [email or web address]
[2023-08-25 18:20] LABS: Basophils # 6.2 10^3/uL (0.0-0.1); Eosinophils # 2.1 10^3/uL (0.0-0.8); Hematocrit 35.8 % (36-47); Lymphocytes # 4.8 10^3/uL (0.8-4.8); Lymphocytes % 6.9 %; Mean Corpuscular HGB Conc 31.8 g/dL (30-55); Mean Corpuscular Hemoglobin 29.3 pg (27-33); Mean Platelet Volume 12.8 fL (7.4-10.4); Monocytes # 2.7 10^3/uL (0.2-0.9); Neutrophils # 25.93 10^3/uL (1.8-7.7); Neutrophils % 37.6 %; Nucleated Red Blood Cells # 1.6 /100WBC; Nucleated Red Blood Cells % 2.3 %; Platelet Count 518 10^3/cmm (157-399); Red Blood Count 3.89 10^6/uL (3.85-5.65); Red Cell Distribution Width 19.4 % (12.1-15.1)
[2023-08-25 18:38] LABS: White Blood Count 68.97 10^3/uL (3.29-11.43)
[2023-08-25 18:39] LABS: Slide Review Slide Review Perform
[2023-08-25 18:40] LABS: Alanine Aminotransferase 9 U/L (0-33); Albumin Level 3.7 g/dL (3.5-5.2); Alkaline Phosphatase 66 U/L (35-105); Anion Gap 17.3 (5-19); Aspartate Amino Transferase 17 U/L (0-32); Blood Urea Nitrogen 11 mg/dL (8-23); Calcium 9.3 mg/dL (8.5-10.5); Carbon Dioxide 29 mmol/L (22-29); Chloride 94 mmol/L (98-107); Globulin 2.1 g/dL (1.3-4.6); Glucose 173 mg/dL (65-115); Magnesium 1.9 mg/dL (1.7-2.3); Osmolality Calculated 286 mOsm/kg (285-295); Phosphorus 3.3 mg/dL (2.5-4.5); Potassium 4.3 mmol/L (3.5-5.1); Sodium 136 mmol/L (136-145); Total Bilirubin 0.3 mg/dL (0.15-1.2); Total Protein 5.8 g/dL (6.6-8.7)
--- NOTE | 2023-08-25 18:53 | ED_ITS ---
HPI - Dizziness 2 General: Chief Complaint: Dizziness Stated Complaint: light headedness Time Seen by Provider: 08/25/23 18:12 History of Present Illness: HPI Narrative: Patient presents to the ER with complaints of being lightheaded dizzy and is feeling sick all over. Patient states she went to dialysis morning feeling somewhat normal when she got to dialysis she started feeling sick. She got weak and was having a hard time getting to her car. Patient then went to do a couple errands and by the time she got home she felt even worse. Patient cannot really narrow it down just says she feels bad all over but was lightheaded and weak to the point she called her daughter and talk with her and then her daughter called 911 and they brought her here. Patient is on 2 L of oxygen per nasal cannula. She says she wears this at dialysis but usually does not wear this she did get some Zofran at dialysis for nausea which usually does not get. Patient does have leukemia Review of Systems 2 General: Reports: 10 or more systems reviewed and unremarkable except in HPI and below PFSH ED 2 PFSH: Medical History Chronic myeloid leukemia Leukocytosis Thrombocytosis ESRD on hemodialysis Diabetes Hypertension Congestive heart failure Acute exacerbation of CHF (congestive heart failure) Takotsubo cardiomyopathy -had extensive workup done in [facility] in [place] in 06/2019; records reviewed -Echo with EF=43%, LVH, noted distal septal, apical and anterolateral hypokinesia/apical ballooning consistent with Takotsubo cardiomyopathy; mild MR. No mention of stress testing or cardiac cath. 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; s/p toe amputations due to diabetic foot infections Hypertension Surgical History S/P hemodialysis catheter insertion (09/25/20) History of cataract surgery History of surgery on arm left arm, due to extravasation History of drainage of abscess left vulvar/perineal area History of bladder suspension procedure History of hernia repair History of total hysterectomy History of cholecystectomy History of appendectomy 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 Family History Father CAD (coronary artery disease) by report, she never knew him Mother Breast cancer Grandmother Breast cancer Denies family history of Colon cancer Diabetes Hypertension Stroke Social History Smoking and tobacco/nicotine status: never used tobacco/nicotine Alcohol intake: current Alcohol intake frequency: holidays/special occasions only Substance/Drug Use: never Current occupational status: disabled Physical Exam 2 Const: COMMON NORMALS: no acute distress, average body habitus, patient oriented x3, no limitations, healthy appearing, alert and well nourished HENMT: COMMON NORMALS: normocephalic, atraumatic, hearing grossly normal bilaterally, external ears normal, EAC's normal, Normal external nose present, moist oral mucous membranes and oropharynx normal HEAD & SCALP: normocephalic and atraumatic NOSE: Normal external nose present EXTERNAL EAR: Yes external ears normal EXTERNAL AUDITORY CANAL: EAC's normal Eye: COMMON NORMALS: Equal, round and reactive pupils present, EOMs intact bilaterally, conjunctivae normal and no scleral icterus CONJUNCTIVA: Yes conjunctivae normal PUPIL: Yes Equal, round and reactive pupils present Neck/C-Spine: COMMON NORMALS: full ROM, no lymphadenopathy, supple, no meningeal signs, no JVD and Thyroid normal THYROID: Thyroid normal Chest: COMMONS NORMALS: normal inspection of the chest and normal palpation of entire chest wall Resp: COMMON NORMALS: normal respiratory effort, No retractions, No use of accessory muscles and clear to auscultation bilaterally AUSCULTATION: clear to auscultation bilaterally Cardio: COMMON NORMALS: no JVD, regular rate, regular rhythm, S1 normal heart sound present, S2 normal heart sound present, No gallops present (Cardio), No clicks present (Cardio), No murmurs present (Cardio) and No rub (Cardio) R ATE: regular rate RHYTHM: regular rhythm HEART SOUNDS: S1 normal heart sound present and S2 normal heart sound present GI: COMMON NORMALS: Normal to inspection, nondistended, normoactive bowel sounds present, Soft to palpation, non-tender and No hepatosplenomegaly present PALPATION: Yes Soft to palpation and Yes No hepatosplenomegaly present Neuro: COMMON NORMALS: patient oriented x3 SENSORIUM/ORIENTATION: Yes alert MENINGEAL SIGNS: Yes no meningeal signs Course 2 Vital Signs: Vital signs: Vital Signs Temperature 98.0 F 08/25/23 18: Pulse Rate 68 08/25/23 20:33 Respiratory Rate 20 H 08/25/23 20:33 Blood Pressure 122/58 08/25/23 18:01 Pulse Oximetry 92 08/25/23 20:33 Oxygen Delivery Me thod Nasal Cannula 08/25/23 20:33 Oxygen Flow Rate 2 08/25/23 20:33 MDM - Dizziness Medical Decision Making Lab work was obtained as well as chest x-ray and influenza COVID swabs. White count was 68,000 this is conducive to her CML, chest x-ray showed small left pleural effusion but is stable, also showed diffuse interstitial infiltrates in the right lung base which may represent atelectasis or developing consolidation. These results was discussed with the patient we will go ahead and put the patient on an antibiotic due to her overall symptoms and decreased immunity secondary to renal failure. Differential Diagnosis Unlikely adverse reaction to drug, benign paroxysmal positional vertigo, orthostatic hypotension, vertebral basilar insufficiency, cerebrovascular accident, acute vestibular neuronitis or transient cerebral ischemia Medical Records I reviewed the patient's medical records. Lab Data I reviewed the patient's lab results. 08/25/23 18:08 08/25/23 18:08 Radiology Impressions Chest X-Ray 08/25/23 18:12 IMPRESSION: 1. Small left pleural effusion with adjacent atelectasis and/or consolidation. Stable to slightly improved compared to 07/07/2023. 2. Stable diffuse interstitial opacification with mildly worsening nodular opacities in the right lung base which may represent atelectasis or developing consolidation. Laboratory Results WBC 68.97 10^3/uL (3.29-11.43) H* 08/25/23 18:08 RBC 3.89 10^6/uL (3.85-5.65) 08/25/23 18:08 Hgb 11.40 g/dL (11.27-16.99) 08/25/23 18:08 Hct 35.8 % (36-47) L 08/25/23 18:08 MCV 92.0 fl (85-98) 08/25/23 18:08 MCH 29.3 pg (27-33) 08/25/23 18:08 MCHC 31.8 g/dL (30-55) 08/25/23 18:08 RDW 19.4 % (12.1-15.1) H 08/25/23 18:08 Plt Count 518 10^3/cmm (157-399) H 08/25/23 18:08 MPV 12.8 fL (7.4-10.4) H 08/25/23 18:08 Neut % (Auto) 37.6 % 08/25/23 18:08 Lymph % (Auto) 6.9 % 08/25/23 18:08 Angelina % (Auto) 4.0 % 08/25/23 18:08 Eos % (Auto) 3.0 % 08/25/23 18:08 Baso % (Auto) 9.0 % 08/25/23 18:08 Neut # (Auto) 25.93 10^3/uL (1.8-7.7) H 08/25/23 18:08 Lymph # (Auto) 4.8 10^3/uL (0.8-4.8) 08/25/23 18:08 Angelina # (Auto) 2.7 10^3/uL (0.2-0.9) H 08/25/23 18:08 Eos # (Auto) 2.1 10^3/uL (0.0-0.8) H 08/25/23 18:08 Baso # (Auto) 6.2 10^3/uL (0.0-0.1) H 08/25/23 18:08 Nucleated RBC % (auto) 2.3 % 08/25/23 18:08 Nucleated RBCs # 1.6 /100WBC 08/25/23 18:08 Sodium 136 mmol/L (136-145) 08/25/23 18:08 Potassium 4.3 mmol/L (3.5-5.1) 08/25/23 18:08 Chloride 94 mmol/L (98-107) L 08/25/23 18:08 Carbon Dioxide 29 mmol/L (22-29) 08/25/23 18:08 Anion Gap 17.3 (5-19) 08/25/23 18:08 BUN 11 mg/dL (8-23) 08/25/23 18:08 Creatinine 2.4 mg/dL (0.5-0.9) H 08/25/23 18:08 GFR Calculation Not Reportable 08/25/23 18:08 Glucose 173 mg/dL (65-115) H 08/25/23 18:08 Calculated Osmolality 286 mOsm/kg (285-295) 08/25/23 18:08 Calcium 9.3 mg/dL (8.5-10.5) 08/25/23 18:08 Phosphorus 3.3 mg/dL (2.5-4.5) 08/25/23 18:08 Magnesium 1.9 mg/dL (1.7-2.3) 08/25/23 18:08 Total Bilirubin 0.3 mg/dL (0.15-1.2) 08/25/23 18:08 AST 17 U/L (0-32) 08/25/23 18:08 ALT 9 U/L (0-33) 08/25/23 18:08 Alkaline Phosphatase 66 U/L (35-105) 08/25/23 18:08 Total Protein 5.8 g/dL (6.6-8.7) L 08/25/23 18:08 Albumin 3.7 g/dL (3.5-5.2) 08/25/23 18:08 Globulin 2.1 g/dL (1.3-4.6) 08/25/23 18:08 Influenza Type A Ag negative (Negative) 08/25/23 20:00 Influenza Type B Ag negative (Negative) 08/25/23 20:00 SARS-CoV-2 Ag (Rapid) negative (Negative) 08/25/23 20:00 All radiology interpretation(s) finalized by discharge Discharge Plan Discharge Patient Disposition: Home Clinical Impression: CML (chronic myeloid leukemia), ESRD on dialysis Pneumonia of both lower lobes Qualifiers: Pneumonia type: due to unspecified organism Qualified Code(s): J18.9 - Pneumonia, unspecified organism Condition: Stable Prescriptions: New azithromycin 250 mg tablet 250 mg PO DAILY Qty: 4 0RF No Action sertraline 100 mg tablet 100 mg PO QAM Qty: 30 0RF Macular Vitamin 500-5-1 mcg-mg-mg tablet 1 tab PO QAM alpha lipoic acid 100 mg capsule 100 mg PO DAILY (DME) True Metrix Level 1 Solution See Rx Instructions .Route Qty: 1 11RF Rx Instructions: As directed with True metrix meter (DME) True Metrix Glucose Test Strip Strip See Rx Instructions .Route Qty: 300 3RF Rx Instructions: to use in true metrix meter TID 90 day supply (DME) lancets [TRUEplus Lancets] 33 gauge misc See Rx Instructions .Route Qty: 300 3RF Rx Instructions: to use TID to check blood sugar 90 day supply carvedilol 3.125 mg tablet 3.125 mg PO BID@, Qty: 180 3RF nilotinib 150 mg capsule 300 mg PO Q12H Qty: 120 11RF Rx Instructions: must be taken on empty stomach; no food at least 2 hrs before or 1 hr after dose Novolog FlexPen U-100 Insulin 100 unit/mL (3 mL) insulin pen See Rx Instructions .ROUTE .COMPLEX Qty: 30 3RF Dose Instruction: INJECT 5-10 UNITS UNDER THE SKIN PER SLIDING SCALE TWICE DAILY Rx Instructions: INJECT 5-10 UNITS UNDER THE SKIN PER SLIDING SCALE TWICE DAILY famotidine 20 mg tablet See Rx Instructions .ROUTE .COMPLEX Qty: 90 0RF Dose Instruction: TAKE 1 TABLET BY MOUTH AT BEDTIME Rx Instructions: TAKE 1 TABLET BY MOUTH AT BEDTIME sevelamer carbonate 2.4 gram powder in packet 7.2 g PO TID atorvastatin 40 mg tablet 40 mg PO BEDTIME aspirin 81 mg tablet,delayed release (DR/EC) 81 mg PO QAM folic acid 1 mg tablet 1 mg PO QAM Levemir FlexTouch U100 Insulin 100 unit/mL (3 mL) insulin pen 30 unit SUBCUT QPM mecobalamin (vitamin B12) 1,000 mcg tablet,disintegrating 1,000 mcg sublingual QAM Discharge Orders: Discharge ED (Routine); Ordered 08/25/23 Ordered By: Clif Burgess Referrals: Juancho Loyd MD [Primary Care Provider] - 1 week Patient Instructions: Pneumonia (ED) Activity Restrictions/Additional Instructions: Your lab work performed in ER was essentially unremarkable. Your x-ray showed subtle changes in both lower lobes which could be atelectasis or pneumonia. Will go ahead and treat you for pneumonia to be cautious. Please follow-up with your family doctor within the next 7 days for further evaluation and treatment. If your symptoms worsen please return to the ER. Coding Level of Care Code ED Gang Supervisor Pipe [employer] for Ivett Koo
[2023-08-25 20:20] LABS: Influenza A by IFA negative (Negative); Influenza B by IFA negative (Negative); SARS Covid-2 Antigen negative (Negative)
[2023-08-25] MEDS: azithromycin 250 mg Tablet 500 MG PO (20:31)
[2023-08-25 20:33] VITALS: PULSE 68; RESP 20; O2SAT 92
== END 2023-08-25 20:41 | disposition home or self-care (01) ==
PROVIDERS: Emergency Provider Emergency Medicine; PCP Family Medicine
DX: J18.9 Pneumonia, unspecified organism (principal); C92.10 Chronic myeloid leukemia, BCR/ABL-positive, not having achieved remission; E11.22 Type 2 diabetes mellitus with diabetic chronic kidney disease; I13.2 Hypertensive heart and chronic kidney disease with heart failure and with stage 5 chronic kidney disease, or end stage renal disease; I50.9 Heart failure, unspecified; N18.6 End stage renal disease; Z99.2 Dependence on renal dialysis; Z11.52 Encounter for screening for COVID-19; Z79.82 Long term (current) use of aspirin; Z79.4 Long term (current) use of insulin
CPT/HCPCS: 71045; 80053; 83735; 84100; 85025; 87426; 87804; 93005; 99285; Q0144

== ENCOUNTER 2023-09-05 13:50 | Oncology outpatient (recurring) (ONCR) | payer MEDICARE, SELFPAY ==
--- NOTE | 2023-09-05 14:24 | ECG_ITS ---
[facility] Test Date: 2023-09-05 Pat Name: Iris Rockwell Department: Room: Gender: Female Aboriginal Community [employer] Member: : 1945 Requested By: Cami Mirza Order Number: [id number] Coco MD: Betzy Dorantes M.D. Measurements Intervals Derwood Rate: 65 P: 38 HI: 222 QRS: 10 QRSD: 109 T: 59 QT: 430 QTc: 448 Interpretive Statements SINUS RHYTHM WITH FIRST DEGREE AV BLOCK NONSPECIFIC ST & T-WAVE ABNORMALITY Compared to ECG 08/25/2023 18:18:26 T-wave abnormality now present ST (T wave) deviation no longer present Prolonged QT interval no longer present Electronically Signed On 09-05-2023 23:22:20 CDT by Betzy Dorantes M.D. [id number]
[2023-09-05 14:31] LABS: Hematocrit 35.6 % (36-47); Mean Corpuscular HGB Conc 31.7 g/dL (30-55); Mean Corpuscular Hemoglobin 29.2 pg (27-33); Mean Platelet Volume 11.1 fL (7.4-10.4); Platelet Count 689 10^3/cmm (157-399); Red Blood Count 3.87 10^6/uL (3.85-5.65); Red Cell Distribution Width 19.2 % (12.1-15.1)
[2023-09-05 14:57] LABS: Alanine Aminotransferase 11 U/L (0-33); Albumin Level 3.9 g/dL (3.5-5.2); Alkaline Phosphatase 79 U/L (35-105); Blood Urea Nitrogen 15 mg/dL (8-23); Carbon Dioxide 32 mmol/L (22-29); Chloride 95 mmol/L (98-107); Globulin 2.3 g/dL (1.3-4.6); Glucose 181 mg/dL (65-115); Osmolality Calculated 291 mOsm/kg (285-295); Sodium 138 mmol/L (136-145); Total Bilirubin 0.3 mg/dL (0.15-1.2); Total Protein 6.2 g/dL (6.6-8.7)
[2023-09-05 15:00] LABS: Anion Gap 15.2 (5-19); Aspartate Amino Transferase 21 U/L (0-32); Potassium 4.2 mmol/L (3.5-5.1)
[2023-09-05 15:35] LABS: Absolute Eosinophils 1.2 10^3/cmm (0.0-0.7); Basophils Absolute 1.8 10^3/cmm (0.0-0.2); Eosinophils 2 %; Lymphocytes 7 %; Monocytes Absolute 1.8 10^3/cmm (0.1-0.6); Slide Review Slide Review Perform; Total Cells Counted 100 (0-100)
[2023-09-05 15:36] LABS: Anisocytosis Trace; Giant Platelets Trace; Platelet Estimate Increased (Normal); Poikilocytosis 1+; Polychromasia Trace; Target Cells Trace
[2023-09-05 15:37] LABS: Stomatocytes Trace
[2023-09-05 15:39] LABS: Band Neutrophils Absolute 2.5 10^3/cmm (0.0-1.2)
[2023-09-05 15:40] LABS: Absolute Neutrophil 33.8 10^3/cmm (1.4-6.5); Absolute Segmented Neutrophil 31.3 10/cmm (1.6-7.1); Segmented Neutrophils 51 %
[2023-09-05 15:46] LABS: White Blood Count 61.41 10^3/uL (3.29-11.43)
== END 2023-09-24 23:59 | disposition home or self-care (01) ==
PROVIDERS: Nurse Practitioner Family; PCP Family Medicine; Visit Provider Internal Medicine
DX: Z53.9 Procedure and treatment not carried out, unspecified reason (principal); I44.0 Atrioventricular block, first degree; R94.31 Abnormal electrocardiogram [ECG] [EKG]; C92.10 Chronic myeloid leukemia, BCR/ABL-positive, not having achieved remission; D03.59 Melanoma in situ of other part of trunk; Z79.899 Other long term (current) drug therapy; N18.6 End stage renal disease; Z99.2 Dependence on renal dialysis
CPT/HCPCS: 36415; 80053; 85007; 85025; 93005; 99215

== ENCOUNTER 2023-09-09 00:48 | Emergency (ER) | payer MEDICARE, SELFPAY ==
[2023-09-09 00:50] VITALS: BP 142/78; PULSE 81; RESP 16; TEMP 37.3; O2SAT 99; BMI 30.9
--- NOTE | 2023-09-09 01:13 | ED_ITS ---
HPI - Weakness 2 General: Chief complaint: Weakness Stated complaint: fall, N/V/D Time Seen by Provider: 09/09/23 00:57 History of Present Illness: 77-year-old female presents to the emerg ency department via EMS personnel. She states she is currently and actively being treated with chemotherapy for leukemia. She states that she has had several episodes of nausea and vomiting today and was not able to take her antinausea medicines today. Patient states that she was getting from her bed to her chair when her legs became weak and she slid to the floor. She denies loss of consciousness or hitting anything while sliding to the floor. She states that she was too weak to get up at that time. Since she has been here in the emergency department she states she feels much better she is doing well. She did have another episode of nausea without vomiting. 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; s/p toe amputations due to diabetic foot infections Diabetes Diabetic neuropathy Diastolic CHF -Echo: EF=60%, G1DD, no RWMA, mild pulmonary HTN, mild , mild TR, trace MR ESRD on hemodialysis GERD (gastroesophageal reflux disease) -on PPI and carafate Hypercholesteremia -on statin Hypertension Hypertension Leukocytosis ANA (obstructive sleep apnea) does not wear cpap by choice Takotsubo cardiomyopathy -had extensive workup done in [facility] in [place] in 06/2019; records reviewed -Echo with EF=43%, LVH, noted distal septal, apical and anterolateral hypokinesia/apical ballooning consistent with Takotsubo cardiomyopathy; mild MR. No mention of stress testing or cardiac cath. Records in chart -noted elevated troponins with no significant delta; unlikely to be acute process -telemetry monitoring -Echo: EF=60%, G1DD, no RWMA, mild pulmonary HTN, mild , mild TR, trace MR Thrombocytosis Transient cerebral ischemia Venous insufficiency (chronic) (peripheral) Surgical History 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 History of appendectomy History of bladder suspension procedure History of cataract surgery History of cholecystectomy History of drainage of abscess left vulvar/perineal area History of hernia repair History of surgery on arm left arm, due to extravasation History of total hysterectomy S/P hemodialysis catheter insertion (09/25/20) Family History Father CAD (coronary artery disease) by report, she never knew him Mother Breast cancer Grandmother Breast cancer Denies family history of Colon cancer Diabetes Hypertension Stroke Social History Smoking and tobacco/nicotine status: never used tobacco/nicotine Alcohol intake: current Alcohol intake frequency: holidays/special occasions only Substance/Drug Use: never Current occupational status: disabled Physical Exam 2 Narrative: EXAM NARRATIVE: Constitutional: the patient appears well nourished and of normal development. Vital signs as documented. No acute distress at present. Alert and oriented-to person, place, time and situation. Head, eyes, ears, nose, mouth, throat: Normocephalic, atraumatic. Pupils-equal, round, reactive to light. No scleral icterus. Normal-appearing external ears. Normal appearing nasal turbinates, no drainage. No obvious oral lesions, posterior oropharynx without erythema or exudates. Neck: Supple, trachea is midline, no lymphadenopathy, no jugular venous distension, thyromegaly, or carotid bruits. Carotid upstrokes are brisk bilaterally. Lungs: clear to auscultation to all lung franklin. Symmetrical rise and fall of chest, no obvious signs of increased work of breathing at present. Cardiac: Regular rate and rhythm, positive S1, S2. No murmurs, rubs or gallops that I can appreciate Abdomen: Soft, non-tender to palpation, normal active bowel sounds to all quadrants. No palpable masses, no organomegaly and abdominal bruits. Extremities: 2+ pulses in the upper extremities that are equal bilaterally, 2+ pulses in the lower extremities that are equal bilaterally. Non-edematous. Moves all extremities well, sensation to all extremities are noted. Skin: Warm, dry, intact. Course 2 Vital Signs: Vital signs: Vital Signs Temperature 99.1 F 09/09/23 00:50 Pulse Rate 70 09/09/23 05:24 Respiratory Rate 18 09/09/23 05:24 Blood Pressure 142/71 09/09/23 05:24 Pulse Oximetry 94 09/09/23 05:24 Oxygen Delivery Me thod Nasal Cannula 09/09/23 02:26 Oxygen Flow Rate 2 09/09/23 02:26 MDM - Weakness Medical Decision Making Physical exam completed and documented I did review the patient's previous medical records and laboratory values. I did obtain a CBC, CMP and provided the patient IV Zofran. Her white blood cell is significantly elevated secondary to her leukemia although it is lower than her previous result. Patient is anemic with a hemoglobin of 10.6 which is slightly down from her previous of 11. She states she feels much better although continues to be weak in the emergency department. I did offer her admission for observation and she stated that she would be able to follow-up with her oncology and primary care doctor. I did encourage her to return to the emergency department if anything changed or worsened and she was in agreement with the plan of care. Medical Records I reviewed the patient's medical records. Lab Data I reviewed the patient's lab results. 09/09/23 01:31 09/09/23 01:31 Laboratory Results WBC 58.74 10^3/uL (3.29-11.43) H* 09/09/23 01:31 RBC 3.60 10^6/uL (3.85-5.65) L 09/09/23 01:31 Hgb 10.60 g/dL (11.27-16.99) L 09/09/23 01:31 Hct 33.1 % (36-47) L 09/09/23 01:31 MCV 91.9 fl (85-98) 09/09/23 01:31 MCH 29.4 pg (27-33) 09/09/23 01:31 MCHC 32.0 g/dL (30-55) 09/09/23 01:31 RDW 19.0 % (12.1-15.1) H 09/09/23 01:31 Plt Count 721 10^3/cmm (157-399) H 09/09/23 01:31 MPV 11.3 fL (7.4-10.4) H 09/09/23 01:31 Neut % (Auto) 38.6 % 09/09/23 01:31 Lymph % (Auto) 6.3 % 09/09/23 01:31 Bremer % (Auto) 4.4 % 09/09/23 01:31 Eos % (Auto) 0.6 % 09/09/23 01:31 Baso % (Auto) 8.1 % 09/09/23 01:31 Neut # (Auto) 22.61 10^3/uL (1.8-7.7) H 09/09/23 01:31 Lymph # (Auto) 3.7 10^3/uL (0.8-4.8) 09/09/23 01:31 Bremer # (Auto) 2.6 10^3/uL (0.2-0.9) H 09/09/23 01:31 Eos # (Auto) 0.4 10^3/uL (0.0-0.8) 09/09/23 01:31 Baso # (Auto) 4.8 10^3/uL (0.0-0.1) H 09/09/23 01:31 Nucleated RBC % (auto) 0.3 % 09/09/23 01:31 Nucleated RBCs # 0.2 /100WBC 09/09/23 01:31 PT 16.00 SECONDS (12.1-14.9) H 09/09/23 01:31 INR 1.24 (0.8-1.2) H 09/09/23 01:31 Sodium 137 mmol/L (136-145) 09/09/23 01:31 Potassium 3.6 mmol/L (3.5-5.1) 09/09/23 01:31 Chloride 94 mmol/L (98-107) L 09/09/23 01:31 Carbon Dioxide 31 mmol/L (22-29) H 09/09/23 01:31 Anion Gap 15.6 (5-19) 09/09/23 01:31 BUN 14 mg/dL (8-23) 09/09/23 01:31 Creatinine 3.0 mg/dL (0.5-0.9) H 09/09/23 01:31 GFR Calculation Not Reportable 09/09/23 01:31 Glucose 206 mg/dL (65-115) H 09/09/23 01:31 POC Glucose 208 mg/dL (70-110) H 09/09/23 01:30 Calculated Osmolality 290 mOsm/kg (285-295) 09/09/23 01:31 Lactic Acid 1.2 mmol/L (0.5-2.2) 09/09/23 02:14 Calcium 9.1 mg/dL (8.5-10.5) 09/09/23 01:31 Total Bilirubin 0.4 mg/dL (0.15-1.2) 09/09/23 01:31 AST 19 U/L (0-32) 09/09/23 01:31 ALT 9 U/L (0-33) 09/09/23 01:31 Alkaline Phosphatase 101 U/L (35-105) 09/09/23 01:31 Total Protein 6.1 g/dL (6.6-8.7) L 09/09/23 01:31 Albumin 3.6 g/dL (3.5-5.2) 09/09/23 01:31 Globulin 2.5 g/dL (1.3-4.6) 09/09/23 01:31 Procalcitonin 0.31 ng/mL (0-0.5) 09/09/23 01:31 No radiology studies performed this visit Discharge Plan Discharge Patient Disposition: Home Clinical Impression: Alteration in comfort associated with chemotherapy, Decreased nausea and vomiting Leukemia Qualifiers: Leukemia type: unspecified Leukemia Active/Remission status: without remission Qualified Code(s): C95.90 - Leukemia, unspecified not having achieved remission Condition: Stable Prescriptions: No Action Macular Vitamin 500-5-1 mcg-mg-mg tablet 1 tab PO QAM alpha lipoic acid 100 mg capsule 100 mg PO DAILY sertraline 100 mg tablet 100 mg PO QAM Qty: 90 1RF levofloxacin 500 mg tablet 500 mg PO DAILY Qty: 5 0RF ondansetron HCl 4 mg tablet 4 mg PO Q6H PRN (Reason: nausea and vomiting) Qty: 30 1RF (DME) True Metrix Level 1 Solution See Rx Instructions .Route Qty: 1 11RF Rx Instructions: As directed with True metrix meter (DME) True Metrix Glucose Test Strip Strip See Rx Instructions .Route Qty: 300 3RF Rx Instructions: to use in true metrix meter TID 90 day supply (DME) lancets [TRUEplus Lancets] 33 gauge misc See Rx Instructions .Route Qty: 300 3RF Rx Instructions: to use TID to check blood sugar 90 day supply carvedilol 3.125 mg tablet 3.125 mg PO BID@08,21 Qty: 180 3RF nilotinib 150 mg capsule 300 mg PO Q12H Qty: 120 11RF Rx Instructions: must be taken on empty stomach; no food at least 2 hrs before or 1 hr after dose Novolog FlexPen U-100 Insulin 100 unit/mL (3 mL) insulin pen See Rx Instructions .ROUTE .COMPLEX Qty: 30 3RF Dose Instruction: INJECT 5-10 UNITS UNDER THE SKIN PER SLIDING SCALE TWICE DAILY Rx Instructions: INJECT 5-10 UNITS UNDER THE SKIN PER SLIDING SCALE TWICE DAILY famotidine 20 mg tablet See Rx Instructions .ROUTE .COMPLEX Qty: 90 0RF Dose Instruction: TAKE 1 TABLET BY MOUTH AT BEDTIME Rx Instructions: TAKE 1 TABLET BY MOUTH AT BEDTIME folic acid 1 mg tablet 1 mg PO QAM Qty: 30 0RF sevelamer carbonate 2.4 gram powder in packet 7.2 g PO TID atorvastatin 40 mg tablet 40 mg PO BEDTIME aspirin 81 mg tablet,delayed release (DR/EC) 81 mg PO QAM Levemir FlexTouch U100 Insulin 100 unit/mL (3 mL) insulin pen 30 unit SUBCUT QPM mecobalamin (vitamin B12) 1,000 mcg tablet,disintegrating 1,000 mcg sublingual QAM Discharge Orders: Discharge ED (Routine); Ordered 09/09/23 Ordered By: Stu Bermudez Referrals: Juancho Loyd MD [Primary Care Provider] - Discharge Diet: Usual diet Discharge Activity: Resume usual activity Patient Instructions: Opioid Safety, Pain Management Activity Restrictions/Additional Instructions: Activity Restrictions/Additional Instructions: Thank you for choosing [facility] for your healthcare needs today. Please realize that you were seen in the Emergency Department and that we are providing you with an emergency medical screening exam and this may not be a complete and all inclusive of all the testing and or medical work-up that you may need to determine your ailment or severity of your illness. It is very important that you follow-up as instructed with your Primary care provider or Specialist for additional evaluation and to discuss your medical treatment plan. You may return to the Emergency Department should you have concerns or if your condition changes or worsens in any way. Coding Level of Care Code ED Bias Cutting Machine Operator Vertical for Ivett Koo
[2023-09-09 01:26] VITALS: BP 145/84; PULSE 77; RESP 17; O2SAT 98
[2023-09-09 01:34] LABS: Glucose Point of Care 208 mg/dL (70-110)
[2023-09-09 01:41] LABS: Basophils # 4.8 10^3/uL (0.0-0.1); Basophils % 8.1 %; Eosinophils # 0.4 10^3/uL (0.0-0.8); Eosinophils % 0.6 %; Hematocrit 33.1 % (36-47); Lymphocytes # 3.7 10^3/uL (0.8-4.8); Lymphocytes % 6.3 %; Mean Corpuscular Hemoglobin 29.4 pg (27-33); Mean Corpuscular Volume 91.9 fl (85-98); Mean Platelet Volume 11.3 fL (7.4-10.4); Monocytes # 2.6 10^3/uL (0.2-0.9); Monocytes % 4.4 %; Neutrophils # 22.61 10^3/uL (1.8-7.7); Neutrophils % 38.6 %; Nucleated Red Blood Cells # 0.2 /100WBC; Nucleated Red Blood Cells % 0.3 %; Platelet Count 721 10^3/cmm (157-399)
[2023-09-09 01:56] LABS: INR 1.24 (0.8-1.2)
[2023-09-09 02:05] LABS: Slide Review Slide Review Perform
[2023-09-09 02:06] LABS: Alanine Aminotransferase 9 U/L (0-33); Albumin Level 3.6 g/dL (3.5-5.2); Alkaline Phosphatase 101 U/L (35-105); Anion Gap 15.6 (5-19); Aspartate Amino Transferase 19 U/L (0-32); Blood Urea Nitrogen 14 mg/dL (8-23); Calcium 9.1 mg/dL (8.5-10.5); Carbon Dioxide 31 mmol/L (22-29); Chloride 94 mmol/L (98-107); Creatinine Clr Calc Pharmacy 16.2333; Globulin 2.5 g/dL (1.3-4.6); Glucose 206 mg/dL (65-115); Osmolality Calculated 290 mOsm/kg (285-295); Potassium 3.6 mmol/L (3.5-5.1); Sodium 137 mmol/L (136-145); Total Bilirubin 0.4 mg/dL (0.15-1.2); Total Protein 6.1 g/dL (6.6-8.7); White Blood Count 58.74 10^3/uL (3.29-11.43)
[2023-09-09 02:13] LABS: Procalcitonin 0.31 ng/mL (0-0.5)
[2023-09-09 02:26] VITALS: BP 137/69; PULSE 71; O2SAT 93
[2023-09-09 02:37] LABS: Lactic Sepsis W/Reflex 1.2 mmol/L (0.5-2.2)
[2023-09-09 03:00] VITALS: BP 138/67; PULSE 71; O2SAT 93
[2023-09-09 04:00] VITALS: BP 136/69; PULSE 69; O2SAT 93
[2023-09-09] MEDS: ondansetron 2 mg/ML SDV 2 mL 8 MG IVP (05:10)
[2023-09-09 05:24] VITALS: BP 142/71; PULSE 70; RESP 18; O2SAT 94
== END 2023-09-09 06:46 | disposition home or self-care (01) ==
PROVIDERS: Emergency Provider Internal Medicine; PCP Family Medicine
DX: R11.2 Nausea with vomiting, unspecified (principal); T45.1X5A Adverse effect of antineoplastic and immunosuppressive drugs, initial encounter; C95.90 Leukemia, unspecified not having achieved remission; Z79.82 Long term (current) use of aspirin; Z79.4 Long term (current) use of insulin; E11.22 Type 2 diabetes mellitus with diabetic chronic kidney disease; I13.2 Hypertensive heart and chronic kidney disease with heart failure and with stage 5 chronic kidney disease, or end stage renal disease; I50.9 Heart failure, unspecified; N18.6 End stage renal disease; Z99.2 Dependence on renal dialysis; I13.0 Hypertensive heart and chronic kidney disease with heart failure and stage 1 through stage 4 chronic kidney disease, or unspecified chronic kidney disease; N18.9 Chronic kidney disease, unspecified
CPT/HCPCS: 36415; 36416; 80053; 82962; 83605; 84145; 85025; 85610; 96374; 99284; J2405

== ENCOUNTER 2023-09-10 14:04 | Inpatient (IN) | payer MEDICARE, SELFPAY ==
[2023-09-10] VITALS (8 sets, daily range): BP systolic 132–148; BP diastolic 60–76; PULSE 72–75; RESP 16–22; TEMP 37.1; O2SAT 88–97
--- NOTE | 2023-09-10 14:19 | CTR_ITS ---
PROCEDURE INFORMATION: Exam: CT Head Without Contrast Exam date and time: 09/10/2023 2:37 PM Age: 77 years old Clinical indication: Injury or trauma; Fall; Blunt trauma (contusions or hematomas) TECHNIQUE: Imaging protocol: Computed tomography of the head without contrast. Radiation optimization: All CT scans at this facility use at least one of these dose optimization techniques: automated exposure control; mA and/or kV adjustment per patient size (includes targeted exams where dose is matched to clinical indication); or iterative reconstruction. COMPARISON: CT head wo con* [id number] 11/26/2022 2:34 PM RADIATION DOSE METRICS: Total DLP (mGy-cm): 933.3 FINDINGS: Brain: Bilateral periventricular white matter and centrum semiovale hypodensities consistent with chronic ischemic small vessel disease. No recent infarct, intracranial bleed or intracranial mass. Cerebral ventricles: No ventriculomegaly. Pituitary gland and sella: Partially empty sella. Paranasal sinuses: There is mucosal disease of bilateral maxillary sinuses, bilateral sphenoid sinuses and bilateral ethmoid air cells. Mastoid air cells: Partial opacification of bilateral mastoid air cells. Orbital cavities: Post bilateral cataract surgery. Bones/joints: Right hyperostosis frontalis. Soft tissues: Unremarkable. CT/CT head wo con* [id number] IMPRESSION: No intracranial posttraumatic changes.
--- NOTE | 2023-09-10 14:19 | CTR_ITS ---
PROCEDURE INFORMATION: Exam: CT Cervical Spine Without Contrast Exam date and time: 09/10/2023 2:37 PM Age: 77 years old Clinical indication: Injury or trauma; Fall; Blunt trauma TECHNIQUE: Imaging protocol: Computed tomography of the cervical spine without contrast. Radiation optimization: All CT scans at this facility use at least one of these dose optimization techniques: automated exposure control; mA and/or kV adjustment per patient size (includes targeted exams where dose is matched to clinical indication); or iterative reconstruction. COMPARISON: CT head wo con* [id number] 09/10/2023 2:37 PM RADIATION DOSE METRICS: Total DLP (mGy-cm): 644.2 FINDINGS: Bones/joints: There is mild anterolisthesis of C3 over C4. Moderate degenerative disease at the anterior C1-C2 articulation. No compression deformity of the vertebral bodies. There is multilevel moderate degenerative disease of the cervical spine most pronounced at C4-C5 and C5-C6 with anterior and posterior osteophyte disc complexes consistent with mild bony canal stenosis and severe narrowing of bilateral neural foramina. Lungs: Lung apices are normal. Pleural spaces: Left pleural effusion. Thyroid: Hypodense left thyroid nodule measuring 2 cm. Vasculature: There are bilateral V4 segments vertebral artery and bilateral carotid artery calcifications. Soft tissues: Unremarkable. CT/CT cervical spin wo con* [id number] IMPRESSION: No posttraumatic changes in the cervical spine. COMMENTS: Consistent with the [place] [employer]'s Incidental Findings Committee white paper (J Am Kalyan Radiol 2015): In patients aged 35 years and older with an incidental thyroid nodule equal to or greater than 1.[address], MRI or extrathyroidal US, further evaluation with dedicated thyroid US is recommended for patients with normal life expectancy and without comorbidities. For smaller nodules without suspicious features, no further evaluation or follow up is recommended.
--- NOTE | 2023-09-10 14:19 | CTR_ITS ---
PROCEDURE INFORMATION: Exam: CT Chest Without Contrast; Diagnostic Exam date and time: 09/10/2023 2:42 PM Age: 77 years old Clinical indication: Injury or trauma; Fall; Generalized; Blunt trauma (contusions or hematomas); Additional info: Fall injury TECHNIQUE: Imaging protocol: Diagnostic computed tomography of the chest without contrast. Radiation optimization: All CT scans at this facility use at least one of these dose optimization techniques: automated exposure control; mA and/or kV adjustment per patient size (includes targeted exams where dose is matched to clinical indication); or iterative reconstruction. COMPARISON: CT angio chest PE protcl [id number] 07/07/2023 7:22 AM RADIATION DOSE METRICS: Total DLP (mGy-cm): 1017.82 FINDINGS: Thyroid: Grossly unremarkable. Lungs: There is left-sided pleural thickening with trace left-sided pleural effusion. There is volume loss of the left upper and lower lobes with left basilar rounded atelectasis. Trace right-sided pleural effusion. No convincing evidence of pneumonia. No pneumothorax. Heart: Mild-moderate cardiomegaly. Trace pericardial effusion. Coronary arteries: There are incidental dense coronary artery calcifications with involvement of the left main. Mediastinal space: Trachea and airway are grossly patent. No evidence of mediastinal hemorrhage or hematoma. Lymph nodes: Multiple prominent and borderline enlarged mediastinal nodes, possibly reactive. For example, there are mildly enlarged nodes in the subcarinal and right paraesophageal region measuring up to 14 mm short axis Vasculature: Moderate atherosclerosis without aneurysmal dilatation of the thoracic aorta. Evaluation for acute vascular injury or thrombosis is limited by lack of IV contrast. Dilation of the pulmonary trunk to 3.8 cm suggesting pulmonary arterial hypertension. Bones/joints: No evidence of acute fracture or aggressive osseous lesion. Soft tissues: No evidence of fluid collection or hematoma in the superficial soft tissues. PROCEDURE INFORMATION: Exam: CT Abdomen And Pelvis Without Contrast Exam date and time: 09/10/2023 2:42 PM Age: 77 years old Clinical indication: Injury or trauma; Fall; Generalized; Blunt trauma (contusions or hematomas); Additional info: Fall injury TECHNIQUE: Imaging protocol: Computed tomography of the abdomen and pelvis without contrast. Radiation optimization: All CT scans at this facility use at least one of these dose optimization techniques: automated exposure control; mA and/or kV adjustment per patient size (includes targeted exams where dose is matched to clinical indication); or iterative reconstruction. COMPARISON: CT abdomen pelvis wo [facility] [id number] 08/13/2018 3:36 PM RADIATION DOSE METRICS: Total DLP (mGy-cm): 1017.82 FINDINGS: Liver: No evidence of focal hepatic lesion within limitation of a noncontrast exam. Gallbladder and bile ducts: Status post cholecystectomy. No evidence of intrahepatic or extrahepatic biliary dilatation. Pancreas: Mildly atrophic. Otherwise grossly unremarkable. Spleen: Grossly unremarkable. Adrenal glands: Grossly unremarkable. Kidneys and ureters: There is a simple appearing left-sided renal cyst for which dedicated imaging follow-up is not required. There are renal vascular calcifications bilaterally. Otherwise no evidence of renal parenchymal abnormality. No hydronephrosis or ureteral stone. Stomach and bowel: Diverticulosis without evidence of acute diverticulitis. No bowel obstruction or perienteric inflammatory changes. Appendix: The appendix is not visualized, however there are no findings to suggest appendicitis. Intraperitoneal space: Trace-small pelvic free fluid. No evidence of free air or fluid collection. There is mild diffuse mesenteric edema. Vasculature: Extensive atherosclerosis without evidence of aneurysmal dilitation of abdominal aorta. Lymph nodes: Few prominent and mildly enlarged upper abdominal nodes including a 13 mm short axis portacaval node. Urinary bladder: Grossly unremarkable. Reproductive: Status post hysterectomy. Bones/joints: No evidence of acute fracture or aggresive osseous lesion. Severe multilevel spondylosis of the lumbar spine with facet arthrosis, osteophytosis and endplate degeneration. Severe L4-L5 central stenosis with likely impingement of the cauda equina nerve roots. Moderate-severe bilateral L4-L5 foraminal stenosis with likely impingement of the exiting L4 nerve roots. Consider correlation with follow-up outpatient MRI to evaluate for neural impingement. Soft tissues: No evidence of fluid collection or hematoma in the superficial soft tissues. Mild diffuse subcutaneous edema. CT/[place] [id number] IMPRESSION: 1. No evidence of acute traumatic injury to the chest. 2. Multiple prominent and mildly enlarged mediastinal nodes, possibly reactive or secondary to lymphovascular congestion. Consider correlation with clinical and laboratory findings to exclude a lymphoproliferative process. Fabricio spread of disease would be difficult to exclude in the proper clinical setting. IMPRESSION: 1. No evidence of acute traumatic injury to the abdomen or pelvis within limitations of a noncontrast exam. 2. Few prominent and mildly enlarged upper abdominal nodes.
--- NOTE | 2023-09-10 14:19 | ED_ITS ---
HPI - Fall 2 General: Chief Complaint: Fall Stated Complaint: BACK PAIN S/P FALL Time Seen by Provider: 09/10/23 14:15 History of Present Illness: 77-year-old female comes in today with a fall at home. Patient reports that she was getting up and her legs would not support her causing her to fall to the ground. Patient has laid in the floor since 7:00 this morning prior to being found and brought to the ER by EMS. Patient has had multiple falls over the last few months. This is patient's third visit this month for a fall. Patient also has a history of diabetes, CML, ESRD with dialysis, CHF. Patient appears nontoxic. Patient appears in mild pain. Abdomen soft nontender. Patient moves neck without difficulty. Patient is able to lift both legs off the table. Patient does live at home alone and does not feel that she is safe to go home or by herself. 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; s/p toe amputations due to diabetic foot infections Diabetes Diabetic neuropathy Diastolic CHF -Echo: EF=60%, G1DD, no RWMA, mild pulmonary HTN, mild , mild TR, trace MR ESRD on hemodialysis GERD (gastroesophageal reflux disease) -on PPI and carafate Hypercholesteremia -on statin Hypertension Hypertension Leukocytosis ANA (obstructive sleep apnea) does not wear cpap by choice Takotsubo cardiomyopathy -had extensive workup done in [facility] in [place] in 06/2019; records reviewed -Echo with EF=43%, LVH, noted distal septal, apical and anterolateral hypokinesia/apical ballooning consistent with Takotsubo cardiomyopathy; mild MR. No mention of stress testing or cardiac cath. Records in chart -noted elevated troponins with no significant delta; unlikely to be acute process -telemetry monitoring -Echo: EF=60%, G1DD, no RWMA, mild pulmonary HTN, mild , mild TR, trace MR Thrombocytosis Transient cerebral ischemia Venous insufficiency (chronic) (peripheral) Surgical History 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 History of appendectomy History of bladder suspension procedure History of cataract surgery History of cholecystectomy History of drainage of abscess left vulvar/perineal area History of hernia repair History of surgery on arm left arm, due to extravasation History of total hysterectomy S/P hemodialysis catheter insertion (09/25/20) Family History Father CAD (coronary artery disease) by report, she never knew him Mother Breast cancer Grandmother Breast cancer Denies family history of Colon cancer Diabetes Hypertension Stroke Social History Smoking and tobacco/nicotine status: never used tobacco/nicotine Alcohol intake: current Alcohol intake frequency: holidays/special occasions only Substance/Drug Use: never Current occupational status: disabled Physical Exam 2 Const: COMMON NORMALS: alert HENMT: COMMON NORMALS: normocephalic and atraumatic HEAD & SCALP: n ormocephalic and atraumatic MOUTH: Normal oral and palatal mucosa present Neck/C-Spine: COMMON NORMALS: full ROM Chest: COMMONS NORMALS: normal inspection of the chest Resp: COMMON NORMALS: normal respiratory effort OTHER: Patient is oxygen is 88% on room air Cardio: COMMON NORMALS: regular rate RATE: regular rate GI: COMMON NORMALS: Soft to palpation PALPATION: Yes Soft to palpation : COMMON NORMALS: Yes no CVA tenderness BLADDER/KIDNEY EXAM: Yes no CVA tenderness Back/Pelvis: COMMON NORMALS: no CVA tenderness and thoracic and lumbar spine normal to inspection Extremity: COMMON NORMALS: normal to inspection Neuro: SENSORIUM/ORIENTATION: Yes alert Psych: COMMON NORMALS: cooperative Skin: COMMON NORMALS: turgor normal GENERAL SKIN EXAM: turgor normal Course 2 Vital Signs: Vital signs: Vital Signs Temperature 98.7 F 09/10/23 14:08 Pulse Rate 74 09/10/23 15:57 Respiratory Rate 16 09/10/23 14:08 Blood Pressure 148/76 09/10/23 15:57 Pulse Oximetry 96 09/10/23 14:10 Oxygen Delivery Me thod Nasal Cannula 09/10/23 14:10 Oxygen Flow Rate 2 09/10/23 14:10 MDM - Fall Medical Decision Making 77-year-old female comes in today for complaints of fall and generalized weakness. Patient is unable to ambulate. Patient had fallen this morning around 7:00 and was unable to get up from the floor and laid on the floor until about 1-2 o'clock. EMS was called and patient was brought to the ER. On exam lungs are clear to auscultation. Patient moves all extremities. Patient does have weakness in the lower extremities. No tenderness is noted on palpation. Patient is oxygen is 88% on room air. Vital signs otherwise normal. Patient does have a history of dyspnea with oxygen use. Differential diagnosis includes but not limited to rhabdomyolysis, fracture, contusions, diabetic neuropathy, failure to thrive in elderly. 1552, patient troponin come back at 700, this is significantly higher than her normal troponin which seems to range between 60 and 100. Discussed this with Dr. Alfonso who recommended patient be admitted for continued evaluation and treatment. Patient is agreeable with this. 1632, discussed patient with Dr. Adan who accepted patient for further evaluation and treatment of elevated troponin. Reviewed this with patient who agreed to plan. Patient's friend did state that patient was recently started on some new chemotherapy meds that they said they would have to monitor the heart as it may stress the heart. Lab Data 09/10/23 14:56 09/10/23 14:56 Radiology Impressions Cervical Spine CT 09/10/23 14:19 IMPRESSION: No posttraumatic changes in the cervical spine. COMMENTS: Consistent with the [employer] [place] [employer]'s Incidental Findings Committee white paper (J Am Kalyan Radiol 2015): In patients aged 35 years and older with an incidental thyroid nodule equal to or greater than 1.[address], MRI or extrathyroidal US, further evaluation with dedicated thyroid US is recommended for patients with normal life expectancy and without comorbidities. For smaller nodules without suspicious features, no further evaluation or follow up is recommended. Chest/Abdomen/Pelvis CT 09/10/23 14:19 IMPRESSION: 1. No evidence of acute traumatic injury to the chest. 2. Multiple prominent and mildly enlarged mediastinal nodes, possibly reactive or secondary to lymphovascular congestion. Consider correlation with clinical and laboratory findings to exclude a lymphoproliferative process. Fabricio spread of disease would be difficult to exclude in the proper clinical setting. IMPRESSION: 1. No evidence of acute traumatic injury to the abdomen or pelvis within limitations of a noncontrast exam. 2. Few prominent and mildly enlarged upper abdominal nodes. Head CT 09/10/23 14:19 IMPRESSION: No intracranial posttraumatic changes. Laboratory Results WBC 61.84 10^3/uL (3.29-11.43) H* 09/10/23 14:56 RBC 3.93 10^6/uL (3.85-5.65) 09/10/23 14:56 Hgb 11.50 g/dL (11.27-16.99) 09/10/23 14:56 Hct 35.7 % (36-47) L 09/10/23 14:56 MCV 90.8 fl (85-98) 09/10/23 14:56 MCH 29.3 pg (27-33) 09/10/23 14:56 MCHC 32.2 g/dL (30-55) 09/10/23 14:56 RDW 18.9 % (12.1-15.1) H 09/10/23 14:56 Plt Count 753 10^3/cmm (157-399) H 09/10/23 14:56 MPV 11.2 fL (7.4-10.4) H 09/10/23 14:56 Lymph % (Auto) Not Reportable 09/10/23 14:56 [place] % (Auto) Not Reportable 09/10/23 14:56 Lymph # (Auto) Not Reportable 09/10/23 14:56 [place] # (Auto) Not Reportable 09/10/23 14:56 Total Counted 100 (0-100) 09/10/23 14:56 Atypical Lymphs % 2.0 % (0-5) 09/10/23 14:56 Absolute Neutrophils 42.7 10^3/cmm (1.4-6.5) H 09/10/23 14:56 Segmented Neutrophils 60 % 09/10/23 14:56 Abs Segm Neuts (Man) 37.1 10/cmm (1.6-7.1) H 09/10/23 14:56 Band Neutrophils 9.0 % 09/10/23 14:56 Abs Band Neuts (Man) 5.6 10^3/cmm (0.0-1.2) H 09/10/23 14:56 Absolute Lymphocytes 8.7 10^3/cmm (1.2-3.4) H 09/10/23 14:56 Lymphocytes (Manual) 12 % 09/10/23 14:56 Monocytes (Manual) 3.0 % 09/10/23 14:56 Absolute Monocytes 1.9 10^3/cmm (0.1-0.6) H 09/10/23 14:56 Eosinophils (Manual) 1 % 09/10/23 14:56 Absolute Eosinophils 0.6 10^3/cmm (0.0-0.7) 09/10/23 14:56 Basophils (Manual) 0.0 % 09/10/23 14:56 Absolute Basophils 0.0 10^3/cmm (0.0-0.2) 09/10/23 14:56 Metamyelocytes 9.0 % 09/10/23 14:56 Myelocytes 4.0 % 09/10/23 14:56 Nucleated RBCs 2.0 /100WBC (0-1) H 09/10/23 14:56 Platelet Estimate Increased (Normal) H 09/10/23 14:56 Giant Platelets Trace 09/10/23 14:56 Poikilocytosis Trace 09/10/23 14:56 Anisocytosis 1+ H 09/10/23 14:56 Macrocytosis Trace 09/10/23 14:56 Sodium 136 mmol/L (136-145) 09/10/23 14:56 Potassium 3.9 mmol/L (3.5-5.1) 09/10/23 14:56 Chloride 90 mmol/L (98-107) L 09/10/23 14:56 Carbon Dioxide 31 mmol/L (22-29) H 09/10/23 14:56 Anion Gap 18.9 (5-19) 09/10/23 14:56 BUN 33 mg/dL (8-23) H 09/10/23 14:56 Creatinine 4.6 mg/dL (0.5-0.9) H 09/10/23 14:56 GFR Calculation Not Reportable 09/10/23 14:56 Glucose 167 mg/dL (65-115) H 09/10/23 14:56 Calculated Osmolality 293 mOsm/kg (285-295) 09/10/23 14:56 Lactic Acid 1.5 mmol/L (0.5-2.2) 09/10/23 14:56 Calcium 9.8 mg/dL (8.5-10.5) 09/10/23 14:56 Total Bilirubin 0.4 mg/dL (0.15-1.2) 09/10/23 14:56 AST 45 U/L (0-32) H 09/10/23 14:56 ALT 21 U/L (0-33) 09/10/23 14:56 Alkaline Phosphatase 165 U/L (35-105) H 09/10/23 14:56 Creatine Kinase 195 U/L (26-192) H 09/10/23 14:56 Troponin T Baseline 720 ng/L (0-10) H* 09/10/23 14:56 Total Protein 5.9 g/dL (6.6-8.7) L 09/10/23 14:56 Albumin 3.9 g/dL (3.5-5.2) 09/10/23 14:56 Globulin 2.0 g/dL (1.3-4.6) 09/10/23 14:56 Urine Color Yellow (Yellow) 09/10/23 15:37 Urine Appearance Clear (CLEAR) 09/10/23 15:37 Urine pH 7 (5-7) 09/10/23 15:37 Ur Specific [place] 1.005 (1.005-1.030) 09/10/23 15:37 Urine Protein 3+ (Negative) H 09/10/23 15:37 Urine Glucose (UA) Norm (Normal) 09/10/23 15:37 Urine Ketones 1+ (Negative) H 09/10/23 15:37 Urine Blood 2+ (Negative) H 09/10/23 15:37 Urine Nitrate Negative (Negative) 09/10/23 15:37 Urine Bilirubin 1+ (Negative) H 09/10/23 15:37 Urine Urobilinogen Norm mg/dL (Negative) 09/10/23 15:37 Ur Leukocyte Esterase Trace (Negative) H 09/10/23 15:37 Urine RBC 0-4 /hpf (0-2) H 09/10/23 15:37 Urine WBC 10-15 /hpf (0-5) H 09/10/23 15:37 Ur Squamous Epith Cells 0-4 /hpf (0-5) H 09/10/23 15:37 Amorphous Sediment Not Reportable 09/10/23 15:37 Urine Bacteria Trace /hpf (NONE) 09/10/23 15:37 All radiology interpretation(s) finalized by discharge EKG Data EKG 1: I personally reviewed and interpreted this EKG as follows: EKG interpretation date: 09/10/23 EKG interpretation time: 15:08 Prior EKG tracings: not available for review Interpretation: EKG shows a sinus rhythm with a regular rate at 72 bpm. Prolonged JACINDA is noted, suggesting first-degree AV block. No ST elevation is noted no other ectopy is noted. Mild artifact noted. No prior exam was available for immediate comparison. Computer generated interpretation: Sinus rhythm with first-degree AV block, moderate intraventricular conduction delay, moderate ST depression, abnormal EKG, unconfirmed report. Discharge Plan Discharge Patient Disposition: Admitted As Inpatient Clinical Impression: Elevated troponin, Bilateral leg weakness, ESRD on hemodialysis Fall Qualifiers: Encounter type: initial encounter Qualified Code(s): W19.XXXA - Unspecified fall, initial encounter Condition: Stable Coding Level of Care Code ED Machine Sweeper Brush Maker for Ivett Koo
[2023-09-10] MEDS: fentaNYL 50 mcg/mL INJ 2mL IVP (15:05)
--- NOTE | 2023-09-10 15:05 | ECG_ITS ---
[facility] Test Date: 2023-09-10 Pat Name: Iris Rockwell Department: Room: Gender: Female Network Systems Engineer: : 1945 Requested By: Abe Allen Order Number: [id number] Coco MD: Betzy Dorantes M.D. Measurements Intervals [place] Rate: 72 P: 72 CA: 216 QRS: 21 QRSD: 113 T: 40 QT: 431 QTc: 472 Interpretive Statements SINUS RHYTHM WITH FIRST DEGREE AV BLOCK MODERATE INTRAVENTRICULAR CONDUCTION DELAY [110+ ms QRS DURATION] MODERATE ST DEPRESSION [0.05+ mV ST DEPRESSION] Compared to ECG 09/05/2023 14:32:54 Intraventricular conduction delay now present ST (T wave) deviation now present T-wave abnormality no longer present Electronically Signed On 09-10-2023 21:42:42 CDT by Betzy Dorantes M.D. [id number]
[2023-09-10 15:08] LABS: Hematocrit 35.7 % (36-47); Mean Corpuscular HGB Conc 32.2 g/dL (30-55); Mean Corpuscular Hemoglobin 29.3 pg (27-33); Mean Corpuscular Volume 90.8 fl (85-98); Mean Platelet Volume 11.2 fL (7.4-10.4); Platelet Count 753 10^3/cmm (157-399); Red Blood Count 3.93 10^6/uL (3.85-5.65); Red Cell Distribution Width 18.9 % (12.1-15.1)
[2023-09-10 15:26] LABS: Lactic Sepsis W/Reflex 1.5 mmol/L (0.5-2.2)
[2023-09-10 15:27] LABS: Alanine Aminotransferase 21 U/L (0-33); Albumin Level 3.9 g/dL (3.5-5.2); Alkaline Phosphatase 165 U/L (35-105); Anion Gap 18.9 (5-19); Aspartate Amino Transferase 45 U/L (0-32); Blood Urea Nitrogen 33 mg/dL (8-23); Calcium 9.8 mg/dL (8.5-10.5); Carbon Dioxide 31 mmol/L (22-29); Chloride 90 mmol/L (98-107); Creatine Phosphokinase 195 U/L (26-192); Glucose 167 mg/dL (65-115); Osmolality Calculated 293 mOsm/kg (285-295); Potassium 3.9 mmol/L (3.5-5.1); Sodium 136 mmol/L (136-145); Total Bilirubin 0.4 mg/dL (0.15-1.2); Total Protein 5.9 g/dL (6.6-8.7)
[2023-09-10 15:40] LABS: Creatinine Clr Calc Pharmacy 10.9976
[2023-09-10 15:41] LABS: Troponin(5th) Baseline 720 ng/L (0-10)
[2023-09-10 15:42] LABS: Slide Review Slide Review Perform; White Blood Count 61.84 10^3/uL (3.29-11.43)
[2023-09-10 15:43] LABS: Absolute Eosinophils 0.6 10^3/cmm (0.0-0.7); Absolute Segmented Neutrophil 37.1 10/cmm (1.6-7.1); Band Neutrophils Absolute 5.6 10^3/cmm (0.0-1.2); Eosinophils 1 %; Lymphocytes 12 %; Monocytes Absolute 1.9 10^3/cmm (0.1-0.6); Segmented Neutrophils 60 %; Total Cells Counted 100 (0-100)
[2023-09-10 15:44] LABS: Absolute Neutrophil 42.7 10^3/cmm (1.4-6.5); Anisocytosis 1+; Giant Platelets Trace; Lymphocytes Absolute 8.7 10^3/cmm (1.2-3.4); Macrocytosis Trace; Platelet Estimate Increased (Normal); Poikilocytosis Trace
[2023-09-10] MEDS: nitroglycerin 1 gm/inch oint Pkt 1 INCH TOPICAL ×2 (15:57→21:00)
[2023-09-10] MEDS: aspirin 81 mg Chew Tablet 324 MG PO (15:57)
[2023-09-10 15:58] LABS: Add Urine Microscopic? YES; Bilirubin Urine 1+ (Negative); Blood Urine 2+ (Negative); Glucose Urine UA Norm (Normal); Ketones Urine 1+ (Negative); Leukocyte Esterase Urine Trace (Negative); Nitrate Urine Negative (Negative); Protein Urine 3+ (Negative); Specific Gravity, Urine 1.005 (1.005-1.030); Urine Appearance Clear (CLEAR); Urine Color Yellow (Yellow); Urobilinogen Urine Norm (Negative); pH Urine 7 (5-7)
[2023-09-10 15:59] LABS: Add Urine Culture? No; Bacteria Urine TRACE /hpf; RBC Urine 0-4 /hpf (0-2); Squamous Epithelial Cell Urine 0-4 /hpf (0-5)
--- NOTE | 2023-09-10 17:14 | ECG_ITS ---
[facility] Test Date: 2023-09-10 Pat Name: Iris Rockwell Department: Room: Gender: Female Consulting Engineer: : 1945 Requested By: Abe Allen Order Number: [id number] Coco MD: Betzy Dorantes M.D. Measurements Intervals [place] Rate: 70 P: 58 SC: 222 QRS: 14 QRSD: 114 T: 72 QT: 415 QTc: 448 Interpretive Statements SINUS RHYTHM WITH FIRST DEGREE AV BLOCK MODERATE INTRAVENTRICULAR CONDUCTION DELAY [110+ ms QRS DURATION] NONSPECIFIC ST & T-WAVE ABNORMALITY Compared to ECG 09/10/2023 15:05:15 T-wave abnormality now present ST (T wave) deviation no longer present Electronically Signed On 09-11-2023 18:55:38 CDT by Betzy Dorantes M.D. [id number]
[2023-09-10 18:08] LABS: Troponin 5 2HR 718.9 ng/L (0-10); Troponin 5 2HR Delta -1.1 ABS# (0-10)
[2023-09-10 18:15] LABS: Thyroid Stimulating Hormone 0.71 uIU/mL (0.27-4.20)
[2023-09-10 18:29] LABS: NT Pro B Type Natriuretic Pept > 35000 pg/mL (0-450)
--- NOTE | 2023-09-10 18:56 | PC.NURSE ---
Patient presents to [facility] via a bed from ED at 1645.
--- NOTE | 2023-09-10 19:30 | PC.NURSE ---
Spoke to patient about order for insertion of barrios catheter and the patient is refusing barrios insertion at this time. Patient is a dialysis patient but states she still makes urine at times.
--- NOTE | 2023-09-10 19:40 | PM.CONSULT ---
Providers/Reason For Consult Consulting Physician/Specialty*: YOHANA Dorantes MD/cardiology Reason for Consult*: Patient with elevated troponin T, history of coronary artery disease and end-stage renal disease Requesting Physician: Dr. Adan Attending Physician: Antonette Adan MD Primary Care Provider: Juancho Loyd MD History of Present Illness History of Present Illness Iris Rockwell is a 77 year old female with a history of atherosclerotic heart disease, status post PCI of the left artery descending artery in 2020, end-stage renal disease, on hemodialysis is admitted to hospital through the emergency room where she presented with a fall. She was found to have a markedly elevated troponin T. Cardiology consult is requested for further cardiac evaluation recommendations This patient apparently has been her baseline state of health up until the today when she had a fall at home. According the patient, her left leg gave out. She was on the floor for 5 hours or so. Finally she managed to get to the phone and called EMS. She was brought to the emergency room for further evaluation management. 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 Since then, she has been feeling weaker. This is apparently the fourth time that she is falling since starting the chemotherapy. She did not have any chest pain or palpitation prior to the episode or following the episode. She may have some baseline shortness of breath. No orthopnea or PND. No fever, chills or cough. No other specific complaints. She has been fairly active. She goes for dialysis 3 times a week. Patient has a history of atherosclerotic heart disease. In 2019, she had an episode of broken heart syndrome. Her LV ejection fraction echocardiogram at that time was 45 to 50%. Her cardiac arrhythmias at that time revealed no significant disease. She has a history of left-sided pleural effusion requiring thoracentesis. Her LV ejection fraction had improved. However in 2020 and repeat echocardiogram revealed the LV ejection fraction to be 45 to 50%. Subsequently she had a Myocardial perfusion imaging followed by angiogram. She had a hemodynamically significant stenosis in the mid LAD, which underwent PCI with a drug-eluting stent, 2.75 x 15 mm. She was found to have mild disease in the right coronary artery and circumflex artery. According to the patient, she has been doing okay since then with no [place] symptoms. She used to be followed by Dr. Davila and her last appointment was in January of last year. Patient has been on hemodialysis for the last 5 years. She seems to be doing okay with the dialysis. She has a diagnosis of chronic myeloid leukemia. She was started on nilotinib. Review of Systems Narrative: CONSTITUTIONAL: No fever or chills. EYES: No blurring of vision or other visual disturbances lately. ENT: No hoarseness of voice, auditory disturbances or sore throat. CARDIOVASCULAR: As mentioned above. RESPIRATORY: History of obstructive sleep apnea GASTROINTESTINAL: No hematemesis or melena. GENITOURINARY: No dysuria or hematuria. INTEGUMENTARY: No skin rashes or history of skin cancer. NEURO: No transient ischemic attacks or amaurosis. PSYCHIATRIC: No history of psychosis or major depression. HEMATOLOGIC: No bleeding disorders or significant anemia. ENDOCRINE: Type 2 diabetes MUSCULOSKELETAL: No recent joint pain or swelling. ALLERGY/IMMUNOLOGY: As mentioned above. Medications/Allergies Home Medications Medication Instructions Recorded Confirmed Last Taken Type blood glucose control, low (True #1 ea 06/07/22 09/10/23 10/26/22 Rx Metrix Level 1 solution) blood sugar diagnostic (True #300 ea 06/07/22 09/10/23 10/26/22 Rx Metrix Glucose Test Strip) lancets 33 gauge (TRUEplus Lancets) #300 ea 06/07/22 09/10/23 10/26/22 Rx aspirin 81 mg tablet,delayed 81 mg PO QAM 10/25/22 09/10/23 09/09/23 History release atorvastatin 40 mg tablet 40 mg PO BEDTIME 10/25/22 09/10/23 09/09/23 History sevelamer carbonate 2.4 gram oral 7.2 g PO TID 10/25/22 09/10/23 09/09/23 History powder packet alpha lipoic acid 100 mg capsule 100 mg PO DAILY 02/22/23 09/10/23 09/09/23 History dzqhfpqj-tympwcyy-rakuc acid 500 1 tab PO QAM 02/22/23 09/10/23 09/09/23 History mcg-lutein 5 mg-zeaxanth 1 mg tablet (Macular Vitamin) insulin detemir U-100 100 unit/mL 20 unit SUBCUT QPM 07/07/23 09/10/23 09/09/23 History (3 mL) subcutaneous pen mecobalamin (vitamin B12) 1,000 1,000 mcg sublingual QAM 07/07/23 09/10/23 09/09/23 History mcg disintegrating tablet,sublingual carvedilol 3.125 mg tablet 3.125 mg PO BID@ #180 tabs 07/13/23 09/10/23 09/09/23 Rx nilotinib 150 mg capsule 300 mg (2 x 150 mg) PO Q12H #120 07/26/23 09/10/23 Unknown Rx caps insulin aspart U-100 100 unit/mL See Rx Instructions .Route 08/10/23 09/10/23 09/10/23 Rx (3 mL) subcutaneous pen (Novolog .COMPLEX #30 mL FlexPen U-100 Insulin aspart) sertraline 100 mg tablet 100 mg PO QAM #90 tabs 08/31/23 09/10/23 09/09/23 Rx ondansetron HCl 4 mg tablet 4 mg PO Q6H PRN nausea and 09/05/23 09/10/23 Unknown Rx vomiting #30 tabs folic acid 1 mg tablet 1 mg PO QAM #30 tabs 09/06/23 09/10/23 09/09/23 Rx ergocalciferol (vitamin D2) 1,250 1,250 mcg PO Q7D 09/10/23 09/10/23 Unknown History mcg (50,000 unit) capsule Allergies Allergy/AdvReac Type Severity Reaction Status Date / Time adhesive Allergy ALGY-Rash Verified 09/10/23 14:15 morphine Allergy unknown Verified 09/10/23 14:15 zolpidem Allergy na Verified 09/10/23 14:15 Current Medications Generic Name Dose Route Start Last Admin Trade Name Freq PRN Reason Stop Dose Admin Insulin Human Lispro 0 unit 09/10/23 18:00 09/10/23 19:28 Insulin Lispro 100 Unit/1 Ml SUBCUT Not Given WM&BEDTIME JT Protocol PFSH Acute PFSH: Medical History Chronic myeloid leukemia Leukocytosis Thrombocytosis ESRD on hemodialysis Diabetes Hypertension Congestive heart failure Acute exacerbation of CHF (congestive heart failure) Takotsubo cardiomyopathy -had extensive workup done in [facility] in [place] in 06/2019; records reviewed -Echo with EF=43%, LVH, noted distal septal, apical and anterolateral hypokinesia/apical ballooning consistent with Takotsubo cardiomyopathy; mild MR. No mention of stress testing or cardiac cath. 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; s/p toe amputations due to diabetic foot infections Hypertension Surgical History S/P hemodialysis catheter insertion (09/25/20) History of cataract surgery History of surgery on arm left arm, due to extravasation History of drainage of abscess left vulvar/perineal area History of bladder suspension procedure History of hernia repair History of total hysterectomy History of cholecystectomy History of appendectomy 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 Family History Father CAD (coronary artery disease) by report, she never knew him Mother Breast cancer Grandmother Breast cancer Denies family history of Colon cancer Diabetes Hypertension Stroke Social History Smoking and tobacco/nicotine status: never used tobacco/nicotine Alcohol intake: current Alcohol intake frequency: holidays/special occasions only Substance/Drug Use: never Current occupational status: disabled Vitals/I&O/Wt Last Vital Signs Temp 98.7 F 09/10/23 14:08 Pulse 73 09/10/23 18:14 Resp 16 09/10/23 18:14 BP 143/72 09/10/23 17:15 Pulse Ox 97 09/10/23 18:14 O2 Del Method Nasal Cannula 09/10/23 19:09 O2 Flow Rate 2 09/10/23 19:09 Weight last 48 hrs Weight 194 lb Physical Exam Narrative: GENERAL: The patient is alert and oriented times three. Not in any acute distress. HEENT: No significant pallor, icterus or lymphadenopathy.Oral cavity: There are no mucous membrane lesions. NECK: Trachea appears to be central. No masses noted. No JVD or thyromegaly appreciated. RESPIRATORY: Chest is symmetrical. No intercostals muscle retraction or any accessory muscle activation. There is no chest wall tenderness. Breath sounds are heard bilaterally. No rales or rhonchi heard. No evidence of any consolidation. BREASTS: Deferred. HEART: The heart sounds are normal. No S3 or S4. Ejection stock murmur grade 3 or 6 in the aortic area. No diastolic murmurs.. No pericardial rub ABDOMEN: No vessel pulsations or distention. No tenderness. No organomegaly appreciated. Bowel sounds are normally heard. : Deferred. RECTAL: Deferred. LYMPHATIC: No lymphadenopathy noted in the neck. EXTREMITIES: No edema or cyanosis. No clubbing. Peripheral pulses are weak bilaterally. MUSCULOSKELETAL: No acute joint deformities or swelling SKIN: There are no significant rashes or ecchymosis NEUROPSYCHIATRIC: The patient is alert and oriented x3. Appears to be in a good mood. No tremors or rigidity noted. Data 09/10/23 14:56 09/10/23 14:56 Other Labs: Laboratory Last Values WBC 61.84 10^3/uL (3.29-11.43) H* 09/10/23 14:56 RBC 3.93 10^6/uL (3.85-5.65) 09/10/23 14:56 Hgb 11.50 g/dL (11.27-16.99) 09/10/23 14:56 Hct 35.7 % (36-47) L 09/10/23 14:56 MCV 90.8 fl (85-98) 09/10/23 14:56 MCH 29.3 pg (27-33) 09/10/23 14:56 MCHC 32.2 g/dL (30-55) 09/10/23 14:56 RDW 18.9 % (12.1-15.1) H 09/10/23 14:56 Plt Count 753 10^3/cmm (157-399) H 09/10/23 14:56 MPV 11.2 fL (7.4-10.4) H 09/10/23 14:56 Lymph % (Auto) Not Reportable 09/10/23 14:56 Williamson % (Auto) Not Reportable 09/10/23 14:56 Lymph # (Auto) Not Reportable 09/10/23 14:56 Williamson # (Auto) Not Reportable 09/10/23 14:56 Total Counted 100 (0-100) 09/10/23 14:56 Atypical Lymphs % 2.0 % (0-5) 09/10/23 14:56 Absolute Neutrophils 42.7 10^3/cmm (1.4-6.5) H 09/10/23 14:56 Segmented Neutrophils 60 % 09/10/23 14:56 Abs Segm Neuts (Man) 37.1 10/cmm (1.6-7.1) H 09/10/23 14:56 Band Neutrophils 9.0 % 09/10/23 14:56 Abs Band Neuts (Man) 5.6 10^3/cmm (0.0-1.2) H 09/10/23 14:56 Absolute Lymphocytes 8.7 10^3/cmm (1.2-3.4) H 09/10/23 14:56 Lymphocytes (Manual) 12 % 09/10/23 14:56 Monocytes (Manual) 3.0 % 09/10/23 14:56 Absolute Monocytes 1.9 10^3/cmm (0.1-0.6) H 09/10/23 14:56 Eosinophils (Manual) 1 % 09/10/23 14:56 Absolute Eosinophils 0.6 10^3/cmm (0.0-0.7) 09/10/23 14:56 Basophils (Manual) 0.0 % 09/10/23 14:56 Absolute Basophils 0.0 10^3/cmm (0.0-0.2) 09/10/23 14:56 Metamyelocytes 9.0 % 09/10/23 14:56 Myelocytes 4.0 % 09/10/23 14:56 Nucleated RBCs 2.0 /100WBC (0-1) H 09/10/23 14:56 Platelet Estimate Increased (Normal) H 09/10/23 14:56 Giant Platelets Trace 09/10/23 14:56 Poikilocytosis Trace 09/10/23 14:56 Anisocytosis 1+ H 09/10/23 14:56 Macrocytosis Trace 09/10/23 14:56 Sodium 136 mmol/L (136-145) 09/10/23 14:56 Potassium 3.9 mmol/L (3.5-5.1) 09/10/23 14:56 Chloride 90 mmol/L (98-107) L 09/10/23 14:56 Carbon Dioxide 31 mmol/L (22-29) H 09/10/23 14:56 Anion Gap 18.9 (5-19) 09/10/23 14:56 BUN 33 mg/dL (8-23) H 09/10/23 14:56 Creatinine 4.6 mg/dL (0.5-0.9) H 09/10/23 14:56 GFR Calculation Not Reportable 09/10/23 14:56 Glucose 167 mg/dL (65-115) H 09/10/23 14:56 Calculated Osmolality 293 mOsm/kg (285-295) 09/10/23 14:56 Lactic Acid 1.5 mmol/L (0.5-2.2) 09/10/23 14:56 Calcium 9.8 mg/dL (8.5-10.5) 09/10/23 14:56 Total Bilirubin 0.4 mg/dL (0.15-1.2) 09/10/23 14:56 AST 45 U/L (0-32) H 09/10/23 14:56 ALT 21 U/L (0-33) 09/10/23 14:56 Alkaline Phosphatase 165 U/L (35-105) H 09/10/23 14:56 Creatine Kinase 195 U/L (26-192) H 09/10/23 14:56 Troponin T Baseline 720 ng/L (0-10) H* 09/10/23 14:56 Troponin T 120 Minute 718.9 ng/L (0-10) H 09/10/23 17:32 Delta Troponin T -1.1 ABS# (0-10) L 09/10/23 17:32 NT-Pro-B Natriuret Pep > 62555 pg/mL (0-450) H 09/10/23 14:56 Total Protein 5.9 g/dL (6.6-8.7) L 09/10/23 14:56 Albumin 3.9 g/dL (3.5-5.2) 09/10/23 14:56 Globulin 2.0 g/dL (1.3-4.6) 09/10/23 14:56 Procalcitonin 0.30 ng/mL (0-0.5) 09/10/23 14:56 TSH 0.71 uIU/mL (0.27-4.20) 09/10/23 14:56 Urine Color Yellow (Yellow) 09/10/23 15:37 Urine Appearance Clear (CLEAR) 09/10/23 15:37 Urine pH 7 (5-7) 09/10/23 15:37 Ur Specific [place] 1.005 (1.005-1.030) 09/10/23 15:37 Urine Protein 3+ (Negative) H 09/10/23 15:37 Urine Glucose (UA) Norm (Normal) 09/10/23 15:37 Urine Ketones 1+ (Negative) H 09/10/23 15:37 Urine Blood 2+ (Negative) H 09/10/23 15:37 Urine Nitrate Negative (Negative) 09/10/23 15:37 Urine Bilirubin 1+ (Negative) H 09/10/23 15:37 Urine Urobilinogen Norm mg/dL (Negative) 09/10/23 15:37 Ur Leukocyte Esterase Trace (Negative) H 09/10/23 15:37 Urine RBC 0-4 /hpf (0-2) H 09/10/23 15:37 Urine WBC 10-15 /hpf (0-5) H 09/10/23 15:37 Ur Squamous Epith Cells 0-4 /hpf (0-5) H 09/10/23 15:37 Amorphous Sediment Not Reportable 09/10/23 15:37 Urine Bacteria Trace /hpf (NONE) 09/10/23 15:37 Micro: Microbiology 09/10/23 15:10 Blood Culture - Preliminary Blood SPECIMEN COLLECTED 09/10/23 14:56 Blood Culture - Preliminary Blood SPECIMEN COLLECTED EKG 1: My Interpretation: Normal sinus rhythm with a diffuse nonspecific ST-T changes. A&P Assessment and plan (1) Elevated troponin: Most likely related to Non ST use myocardial infarction. Patient is currently asymptomatic. Hemodynamically stable. Her LV function is not known. (2) Hypertension: Her blood pressure is slightly elevated. The antihypertensive medications need to be optimized. Qualifiers: Hypertension type: essential hypertension Qualified Code(s): I10 - Essential (primary) hypertension (3) Aortic valve stenosis: I may go ahead and do echocardiogram to evaluate LV function and valve function. Based on the results, further recommendations will be made. Qualifiers: Cardiac valve disease etiology: nonrheumatic Qualified Code(s): I35.0 - Nonrheumatic aortic (valve) stenosis (4) Atherosclerosis of coronary artery of [place] heart without angina pectoris: Patient has a history of atherosclerotic heart disease and PCI of the mid LAD lesion. This needs to be further evaluated. We may consider repeat angiogram as early as possible. Qualifiers: Coronary Disease-Associated Artery/Lesion type: [place] artery Qualified Code(s): I25.10 - Atherosclerotic heart disease of [place] coronary artery without angina pectoris (5) Hypercholesteremia: May continue on the current medications (6) Congestive heart failure: May be treated with the as needed Lasix Qualifiers: Heart failure chronicity: acute on chronic Heart failure type: unspecified Qualified Code(s): I50.9 - Heart failure, unspecified (7) Diabetes: Management as per the primary Qualifiers: Diabetes mellitus type: type 2 Diabetes mellitus long[place] foreman insulin use: with longwall foreman use Diabetes mellitus complication status: with neurologic complications Diabetes mellitus complication detail: with polyneuropathy Qualified Code(s): E11.42 - Type 2 diabetes mellitus with diabetic polyneuropathy; 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 We may consider cardiac catheterization after that. (9) Chronic myeloid leukemia: Management as per the heme oncology service Plan May be started on Plavix 300 mg p.o. now followed by 75 mg p.o. daily. Patient may be kept on the IV heparin. Continue on the carvedilol and the atorvastatin. Echocardiogram today to evaluate LV function and aortic valve function. Based on the clinical progress and the results of the above, further recommendations will be made. Thank you for the opportunity to evaluate this patient and make these recommendations Consult Attestations Medical Necessity Statement: Patient requires continued hospital stay for close monitoring and further management Coding Level of Care Code 87949 Diagnoses Elevated troponin R77.8 Essential hypertension I10 Hypertension type: essential hypertension Nonrheumatic aortic valve stenosis I35.0 Cardiac valve disease etiology: nonrheumatic Atherosclerosis of [place] coronary artery of [place] heart without angina pectoris I25.10 Coronary Disease-Associated Artery/Lesion type: [place] artery Hypercholesteremia E78.00 Congestive heart failure I50.9 Heart failure chronicity: acute on chronic Heart failure type: unspecified Type 2 diabetes mellitus with diabetic polyneuropathy, with long-term current use of insulin E11.42; Z79.4 Diabetes mellitus type: type 2 Diabetes mellitus [place] foreman insulin use: with longwall foreman use Diabetes mellitus complication status: with neurologic complications Diabetes mellitus complication detail: with polyneuropathy ESRD on hemodialysis N18.6; Z99.2 Chronic myeloid leukemia C92.10
[2023-09-10] MEDS: vancomycin 750 MG in sodium chloride 0.9% 250 ML 250 MG IV (19:47)
[2023-09-10] MEDS: heparin drip 25,000 UNIT/500 ML PREMIX 25 UNIT IV (20:08)
[2023-09-10] MEDS: heparin 5,000 unit/mL INJ 1 mL IV (20:10)
[2023-09-10] MEDS: piperacillin-tazobactam 3.375 GM in sodium chloride 0.9% (plus) 50 ML IV (20:18)
[2023-09-10] MEDS: clopidogrel 300 mg Tablet PO (21:00)
[2023-09-10] MEDS: atorvastatin 40 mg Tablet PO (21:00)
[2023-09-10] MEDS: carvedilol 3.125 mg Tablet PO (21:00)
[2023-09-10 21:08] LABS: Glucose Point of Care 154 mg/dL (70-110)
[2023-09-10] MEDS: insulin lispro 100 unit/1 mL SUBCUT (21:21)
[2023-09-10] MEDS: acetaminophen 325 mg Tablet 650 MG PO (21:23)
[2023-09-10 21:48] LABS: Troponin 5 6HR 854.6 ng/L (0-10); Troponin 5 6HR Delta 134.6 ng/L (0-12)
--- NOTE | 2023-09-10 22:18 | PC.NURSE ---
Called and spoke with regarding dialysis patient possibly going for angiogram tomorrow. wanted nurse to ask if they recommended patient have dialysis before or after angiogram. said it depends on patient labs and condition. said she will see patient early tomorrow and make recommendation. If patient needs angiogram urgently can go for that first but if not they can dialyze her first.
--- NOTE | 2023-09-10 22:40 | P.HP_ITS ---
Providers/Chief Complaint 2 Admitting Physician: Antonette Adan MD Primary Care Provider: Juancho Loyd MD Chief Complaint: BACK PAIN S/P FALL History of Present Illness Iris Rockwell is a 77 year old female with history of diabetes, CML, recently started nilotinib 08/24, NSAID renal disease Monday, history of coronary disease 1 stent placed few years ago presented for recurrent falls. Patient is stating that she lives alone and 4000 square feet home she manages to drive back and forth from dialysis center but since her initiation of chemotherapeutic tablet this month she has been experiencing worsening of her diabetic neuropathy he has noticed recurrent falls which she describing as her legs giving up on her and she will stay on the floor because she would get weak he has had called EMS multiple times. Today patient woke around 7 AM was try to get up from bed when her legs gave up on her and she fell on the floor she could not get up on her own could not call EMS, her friend checked on her around 12:30 PM at that time she was brought to the hospital for further evaluation patient stated that she never experienced any nausea, vomiting, fever, shortness of breath or chest pain. She never experienced any stroke related symptoms slurred speech or facial droop. In the ER her diagnostic workup was consistent with leukocytosis related to her CML, significant bandemia and neutrophilia without any fever hemodynamically stable she is not complaining active chest pain currently requiring 2 L saturating 98%, no signs of hypervolemia, last session was dialysis on Monday, She has been diagnosed with non-STEMI cardiology consulted along nephrology Goals of care discussed patient is DNI/DNI Review of Systems 2 Const: Denies: fever(s) Eyes: Denies: change in vision ENMT: Denies: throat pain Card: Denies: chest pain Resp: Denies: dyspnea GI: Denies: abdominal pain : Denies: flank pain Musc: Reports: back pain Skin/Breast: Denies: rash Neuro: Reports: numbness in extremities and frequent falls Medications/Allergies Home Medications Medication Instructions Recorded Confirmed Last Taken Type blood glucose control, low (True #1 ea 06/07/22 09/10/23 10/26/22 Rx Metrix Level 1 solution) blood sugar diagnostic (True #300 ea 06/07/22 09/10/23 10/26/22 Rx Metrix Glucose Test Strip) lancets 33 gauge (TRUEplus Lancets) #300 ea 06/07/22 09/10/23 10/26/22 Rx aspirin 81 mg tablet,delayed 81 mg PO QAM 10/25/22 09/10/23 09/09/23 History release atorvastatin 40 mg tablet 40 mg PO BEDTIME 10/25/22 09/10/23 09/09/23 History sevelamer carbonate 2.4 gram oral 7.2 g PO TID 10/25/22 09/10/23 09/09/23 History powder packet alpha lipoic acid 100 mg capsule 100 mg PO DAILY 02/22/23 09/10/23 09/09/23 History ztuegrhp-yzmngnka-oujky acid 500 1 tab PO QAM 02/22/23 09/10/23 09/09/23 History mcg-lutein 5 mg-zeaxanth 1 mg tablet (Macular Vitamin) insulin detemir U-100 100 unit/mL 20 unit SUBCUT QPM 07/07/23 09/10/23 09/09/23 History (3 mL) subcutaneous pen mecobalamin (vitamin B12) 1,000 1,000 mcg sublingual QAM 07/07/23 09/10/23 09/09/23 History mcg disintegrating tablet,sublingual carvedilol 3.125 mg tablet 3.125 mg PO BID@ #180 tabs 07/13/23 09/10/23 09/09/23 Rx nilotinib 150 mg capsule 300 mg (2 x 150 mg) PO Q12H #120 07/26/23 09/10/23 Unknown Rx caps insulin aspart U-100 100 unit/mL See Rx Instructions .Route 08/10/23 09/10/23 09/10/23 Rx (3 mL) subcutaneous pen (Novolog .COMPLEX #30 mL FlexPen U-100 Insulin aspart) sertraline 100 mg tablet 100 mg PO QAM #90 tabs 08/31/23 09/10/23 09/09/23 Rx ondansetron HCl 4 mg tablet 4 mg PO Q6H PRN nausea and 09/05/23 09/10/23 Unknown Rx vomiting #30 tabs folic acid 1 mg tablet 1 mg PO QAM #30 tabs 09/06/23 09/10/23 09/09/23 Rx ergocalciferol (vitamin D2) 1,250 1,250 mcg PO Q7D 09/10/23 09/10/23 Unknown History mcg (50,000 unit) capsule Allergies Allergy/AdvReac Type Severity Reaction Status Date / Time adhesive Allergy ALGY-Rash Verified 09/10/23 14:15 morphine Allergy unknown Verified 09/10/23 14:15 zolpidem Allergy na Verified 09/10/23 14:15 PFSH Acute 2 PFSH: Medical History Chronic myeloid leukemia Leukocytosis Thrombocytosis ESRD on hemodialysis Diabetes Hypertension Congestive heart failure Acute exacerbation of CHF (congestive heart failure) Takotsubo cardiomyopathy -had extensive workup done in [facility] in [place] in 06/2019; records reviewed -Echo with EF=43%, LVH, noted distal septal, apical and anterolateral hypokinesia/apical ballooning consistent with Takotsubo cardiomyopathy; mild MR. No mention of stress testing or cardiac cath. 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; s/p toe amputations due to diabetic foot infections Hypertension Surgical History S/P hemodialysis catheter insertion (09/25/20) History of cataract surgery History of surgery on arm left arm, due to extravasation History of drainage of abscess left vulvar/perineal area History of bladder suspension procedure History of hernia repair History of total hysterectomy History of cholecystectomy History of appendectomy 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 Family History Father CAD (coronary artery disease) by report, she never knew him Mother Breast cancer Grandmother Breast cancer Denies family history of Colon cancer Diabetes Hypertension Stroke Social History Smoking and tobacco/nicotine status: never used tobacco/nicotine Alcohol intake: current Alcohol intake frequency: holidays/special occasions only Substance/Drug Use: never Current occupational status: disabled Vitals/I&O/Wt Last Vital Signs Temp 98.8 F 09/10/23 20:00 Pulse 74 09/10/23 22:00 Resp 22 H 09/10/23 20:00 BP 132/60 09/10/23 21:00 Pulse Ox 96 09/10/23 20:00 O2 Del Method Room Air 09/10/23 20:00 O2 Flow Rate 2 09/10/23 19:09 09/10/23 09/10/23 09/10/23 06:59 14:59 22:59 Intake Total 250 / 250 Output Total 0 / 0 Balance 250 / 250 Weight last 48 hrs Weight 87.679 kg Weight 87.997 kg Physical Exam 2 Narrative: Patient is awake alert Euvolemic Currently on 2 L saturating 98% No active chest pain at present Nonfocal neuroexam Good strength of upper and lower extremities And anterior No slurred speech S1, S2 Abdomen soft Left arm dialysis access Abdomen soft Sensations intact Data 09/10/23 14:56 09/10/23 14:56 Micro: Microbiology 09/10/23 15:10 Blood Culture - Preliminary Blood SPECIMEN COLLECTED 09/10/23 14:56 Blood Culture - Preliminary Blood SPECIMEN COLLECTED A&P Assessment and plan (1) Hypertension: Qualifiers: Hypertension type: essential hypertension Qualified Code(s): I10 - Essential (primary) hypertension (2) CAD (coronary artery disease): Qualifiers: Coronary Disease-Associated Artery/Lesion type: [place] artery [place] vs. 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 insulin use: with skilled nursing use Diabetes mellitus complication status: with neurologic complications Diabetes mellitus complication detail: with polyneuropathy Qualified Code(s): E11.42 - Type 2 diabetes mellitus with diabetic polyneuropathy; Z79.4 - moth exterminator (current) use of insulin (4) GERD (gastroesophageal reflux disease): Qualifiers: Esophagitis presence: esophagitis presence not specified Qualified Code(s): K21.9 - Gastro-esophageal reflux disease without esophagitis (5) ESRD on hemodialysis: (6) Chronic myeloid leukemia: (7) Bilateral leg weakness: (8) Fall: Qualifiers: Encounter type: initial encounter Qualified Code(s): W19.XXXA - Unspecified fall, initial encounter (9) ANA (obstructive sleep apnea): (10) NSTEMI (non-ST elevated myocardial infarction): Plan Non-STEMI Dr. Dorantes consulted No active chest pain Patient hemodynamic stable Start heparin Loaded with aspirin and Plavix Further plan will be made after echo report as per cardiology Patient has history of coronary disease with 1 stent placement in the past End-stage renal disease On dialysis for last 5 years Consulted nephro for Monday dialysis session Recurrent falls Check B12 Patient has diabetic neuropathy Rule out BPPV No sign of stroke CT head unremarkable Patient is denying syncopal events She never had any seizure related activity She drives back and forth from dialysis center on her own, she lives alone, has had multiple falls in the past few weeks Patient thinks it is related to her chemotherapeutic agent Will request PT I have asked patient to reconsider her driving risk factors Acute hypoxia Patient stating that she has diagnosis of sleep apnea but does not use CPAP She was on oxygen in the past but that has been taken off recently Currently on 2 L saturating 98% Review of records: Preserved ejection fraction with hypokinesia secondary to Takotsubo which was diagnosed in 2019 EF 45 to 50% No active sign of heart failure Stent was placed in mid LAD she also had mild disease of right coronary artery with circumflex artery she used to follow-up with Dr. Davila CML: Recently started nilotinib Spoke with Dr. Jose E Rinaldi notified Attestations 2 Medical Necessity Statement*: More than 2 midnights anticipated Diagnoses Essential hypertension I10 Hypertension type: essential hypertension Coronary artery disease involving [place] coronary artery of [place] heart without angina pectoris I25.10 Coronary Disease-Associated Artery/Lesion type: [place] artery [place] vs. transplanted heart: [place] heart Associated angina: without angina Type 2 diabetes mellitus with diabetic polyneuropathy, with long-term current use of insulin E11.42; Z79.4 Diabetes mellitus type: type 2 Diabetes mellitus skilled nursing insulin use: with watermelon harvesting supervisor use Diabetes mellitus complication status: with neurologic complications Diabetes mellitus complication detail: with polyneuropathy Gastroesophageal reflux disease, esophagitis presence not specified K21.9 Esophagitis presence: esophagitis presence not specified ESRD on hemodialysis N18.6; Z99.2 Chronic myeloid leukemia C92.10 Bilateral leg weakness R29.898 Fall W19.XXXA Encounter type: initial encounter ANA (obstructive sleep apnea) G47.33 NSTEMI (non-ST elevated myocardial infarction) I21.4
--- NOTE | 2023-09-10 22:47 | PC.NURSE ---
Spoke with regarding patient complaint of having diarrhea, requesting imodium. said send stool for cdiff first to rule out infectious cause of diarrhea.
[2023-09-11] VITALS (16 sets, daily range): BP systolic 114–156; BP diastolic 47–70; PULSE 65–87; RESP 14–22; TEMP 36.5–37.2; O2SAT 89–94
[2023-09-11 00:07] LABS: C.Diff PCR (Lab) POSITIVE (Negative)
[2023-09-11 00:43] LABS: Clostridioides Difficile Toxin NEGATIVE (Negative)
[2023-09-11] MEDS: nitroglycerin 1 gm/inch oint Pkt 1 INCH TOPICAL ×3 (02:13→20:29)
[2023-09-11] MEDS: vancomycin 125 mg Capsule PO ×4 (02:13→20:30)
[2023-09-11 02:30] LABS: Basophils # 3.3 10^3/uL (0.0-0.1); Eosinophils # 0.6 10^3/uL (0.0-0.8); Eosinophils % 1.1 %; Hematocrit 29.4 % (36-47); Lymphocytes # 3.4 10^3/uL (0.8-4.8); Lymphocytes % 6.1 %; Mean Corpuscular Hemoglobin 29.4 pg (27-33); Mean Corpuscular Volume 89.1 fl (85-98); Mean Platelet Volume 11.6 fL (7.4-10.4); Monocytes % 3.6 %; Neutrophils % 39.7 %; Nucleated Red Blood Cells # 0.5 /100WBC; Nucleated Red Blood Cells % 0.9 %; Platelet Count 671 10^3/cmm (157-399); Red Cell Distribution Width 18.6 % (12.1-15.1)
[2023-09-11 02:37] LABS: White Blood Count 55.61 10^3/uL (3.29-11.43)
[2023-09-11 03:10] LABS: Alanine Aminotransferase 13 U/L (0-33); Albumin Level 3.1 g/dL (3.5-5.2); Alkaline Phosphatase 122 U/L (35-105); Anion Gap 15.5 (5-19); Aspartate Amino Transferase 27 U/L (0-32); Blood Urea Nitrogen 38 mg/dL (8-23); Calcium 8.7 mg/dL (8.5-10.5); Carbon Dioxide 28 mmol/L (22-29); Chloride 94 mmol/L (98-107); Creatinine Clr Calc Pharmacy 9.7105; Glucose 135 mg/dL (65-115); Osmolality Calculated 289 mOsm/kg (285-295); Potassium 3.5 mmol/L (3.5-5.1); Sodium 134 mmol/L (136-145); Total Bilirubin 0.4 mg/dL (0.15-1.2); Total Protein 5.1 g/dL (6.6-8.7)
[2023-09-11] MEDS: folic acid 1 mg Tablet PO (05:03)
[2023-09-11] MEDS: aspirin 81 mg EC Tablet PO (05:03)
[2023-09-11] MEDS: sertraline 100 mg Tablet PO (05:03)
--- NOTE | 2023-09-11 05:56 | P.CONIM_ITS ---
Providers/Reason For Consult 2 Consulting Physician/Specialty*: kommana/Nephrology Reason for Consult*: ESRD Attending Physician: Antonette Adan MD Primary Care Provider: Juancho Loyd MD History of Present Illness History of Present Illness Iris Rockwell is a 77 year old female Patient is a 77-year-old female with past medical history of CML, diabetes, end-stage renal disease on dialysis per Monday, coronary artery disease presented to the emergency department due to recurrent falls. In the emergency department patient was found to have hypoxia requiring 2 L oxygen. Has elevated troponin and was thought to have non-STEMI and cardiology was consulted. Patient currently getting dialysis and denies any complaints Medications/Allergies Home Medications Medication Instructions Recorded Confirmed Last Taken Type blood glucose control, low (True #1 ea 06/07/22 09/10/23 10/26/22 Rx Metrix Level 1 solution) blood sugar diagnostic (True #300 ea 06/07/22 09/10/23 10/26/22 Rx Metrix Glucose Test Strip) lancets 33 gauge (TRUEplus Lancets) #300 ea 06/07/22 09/10/23 10/26/22 Rx aspirin 81 mg tablet,delayed 81 mg PO QAM 10/25/22 09/10/23 09/09/23 History release atorvastatin 40 mg tablet 40 mg PO BEDTIME 10/25/22 09/10/23 09/09/23 History sevelamer carbonate 2.4 gram oral 7.2 g PO TID 10/25/22 09/10/23 09/09/23 History powder packet alpha lipoic acid 100 mg capsule 100 mg PO DAILY 02/22/23 09/10/23 09/09/23 History zlarkuwe-uwklcuym-ncfgp acid 500 1 tab PO QAM 02/22/23 09/10/23 09/09/23 History mcg-lutein 5 mg-zeaxanth 1 mg tablet (Macular Vitamin) insulin detemir U-100 100 unit/mL 20 unit SUBCUT QPM 07/07/23 09/10/23 09/09/23 History (3 mL) subcutaneous pen mecobalamin (vitamin B12) 1,000 1,000 mcg sublingual QAM 07/07/23 09/10/23 09/09/23 History mcg disintegrating tablet,sublingual carvedilol 3.125 mg tablet 3.125 mg PO BID@ #180 tabs 07/13/23 09/10/23 09/09/23 Rx nilotinib 150 mg capsule 300 mg (2 x 150 mg) PO Q12H #120 07/26/23 09/10/23 Unknown Rx caps insulin aspart U-100 100 unit/mL See Rx Instructions .Route 08/10/23 09/10/23 09/10/23 Rx (3 mL) subcutaneous pen (Novolog .COMPLEX #30 mL FlexPen U-100 Insulin aspart) sertraline 100 mg tablet 100 mg PO QAM #90 tabs 08/31/23 09/10/23 09/09/23 Rx ondansetron HCl 4 mg tablet 4 mg PO Q6H PRN nausea and 09/05/23 09/10/23 Unknown Rx vomiting #30 tabs folic acid 1 mg tablet 1 mg PO QAM #30 tabs 09/06/23 09/10/23 09/09/23 Rx ergocalciferol (vitamin D2) 1,250 1,250 mcg PO Q7D 09/10/23 09/10/23 Unknown History mcg (50,000 unit) capsule Allergies Allergy/AdvReac Type Severity Reaction Status Date / Time adhesive Allergy ALGY-Rash Verified 09/10/23 14:15 morphine Allergy unknown Verified 09/10/23 14:15 zolpidem Allergy na Verified 09/10/23 14:15 Current Medications Generic Name Dose Route Start Last Admin Trade Name Freq PRN Reason Stop Dose Admin Acetaminophen 650 mg 09/10/23 17:36 09/10/23 21:23 Acetaminophen 325 Mg Tablet PO 650 mg Q6H PRN Administration Mild/Mod Pain Or Temp >/= 101 Aspirin 81 mg 09/11/23 06:00 09/11/23 05:03 Aspirin 81 Mg Ec Tablet PO 81 mg QAM JT Administration Atorvastatin Calcium 40 mg 09/10/23 21:00 09/10/23 21:00 Atorvastatin 40 Mg Tablet PO 40 mg BEDTIME JT Administration Carvedilol 3.125 mg 09/10/23 21:00 09/10/23 21:00 Carvedilol 3.125 Mg Tablet PO 3.125 mg BID@ JT Administration Folic Acid 1 mg 09/11/23 06:00 09/11/23 05:03 Folic Acid 1 Mg Tablet PO 1 mg QAM JT Administration Heparin Sodium (Porcine) 0 unit 09/10/23 17:42 09/10/23 20:10 Heparin 5,000 Unit/Ml Inj 1 Ml IV 4,400 unit PRN PRN Administration Heparin weight-base protocol Protocol Heparin Sodium/Sodium Chloride 25,000 unit in 500 mls @ 0 mls/hr 09/10/23 17:45 09/11/23 03:03 Heparin Drip IV 11.36 unit/kg/hr .Q0M JT 20 mls/hr Titration Protocol Per Protocol Insulin Human Lispro 0 unit 09/10/23 18:00 09/10/23 21:21 Insulin Lispro 100 Unit/1 Ml SUBCUT 2 unit WM&BEDTIME JT Administration Protocol Nitroglycerin 1 inch 09/10/23 20:45 09/11/23 02:13 Nitroglycerin 1 Gm/Inch Oint Pkt TOPICAL 1 inch Q6H JT Administration Non-Formulary Medication 1,000 mcg 09/11/23 06:00 09/11/23 05:03 Mecobalamin (Vitamin B12) SUBLINGUAL Not Given QAM JT Non-Formulary Medication 7.2 gm 09/10/23 21:00 09/10/23 21:06 Sevelamer Carbonate PO Not Given TID JT Non-Formulary Medication 300 mg 09/10/23 22:45 09/10/23 23:44 Nilotinib PO Not Given Q12H JT Sertraline HCl 100 mg 09/11/23 06:00 09/11/23 05:03 Sertraline 100 Mg Tablet PO 100 mg QAM JT Administration Vancomycin HCl 125 mg 09/11/23 01:20 09/11/23 02:13 Vancomycin 125 Mg Capsule PO 125 mg QID JT Administration PFSH Acute 2 PFSH: Medical History Chronic myeloid leukemia Leukocytosis Thrombocytosis ESRD on hemodialysis Diabetes Hypertension Congestive heart failure Acute exacerbation of CHF (congestive heart failure) Takotsubo cardiomyopathy -had extensive workup done in [facility] in [place] in 06/2019; records reviewed -Echo with EF=43%, LVH, noted distal septal, apical and anterolateral hypokinesia/apical ballooning consistent with Takotsubo cardiomyopathy; mild MR. No mention of stress testing or cardiac cath. 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; s/p toe amputations due to diabetic foot infections Hypertension Surgical History S/P hemodialysis catheter insertion (09/25/20) History of cataract surgery History of surgery on arm left arm, due to extravasation History of drainage of abscess left vulvar/perineal area History of bladder suspension procedure History of hernia repair History of total hysterectomy History of cholecystectomy History of appendectomy 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 Family History Father CAD (coronary artery disease) by report, she never knew him Mother Breast cancer Grandmother Breast cancer Denies family history of Colon cancer Diabetes Hypertension Stroke Social History Smoking and tobacco/nicotine status: never used tobacco/nicotine Alcohol intake: current Alcohol intake frequency: holidays/special occasions only Substance/Drug Use: never Current occupational status: disabled Vitals/I&O/Wt Last Vital Signs Temp 97.8 F 09/11/23 04:00 Pulse 65 09/11/23 04:00 Resp 14 09/11/23 04:00 BP 115/54 09/11/23 04:00 Pulse Ox 94 09/11/23 04:00 O2 Del Method Room Air 09/11/23 04:00 O2 Flow Rate 2 09/11/23 02:42 09/10/23 09/10/23 09/11/23 14:59 22:59 06:59 Intake Total 250 / 250 222.917 / 472.917 Output Total 0 / 0 0 / 0 Balance 250 / 250 222.917 / 472.917 Weight last 48 hrs Weight 87.679 kg Weight 87.997 kg Data 09/11/23 02:13 09/11/23 02:13 Micro: Microbiology 09/10/23 15:10 Blood Culture - Preliminary Blood SPECIMEN COLLECTED 09/10/23 14:56 Blood Culture - Preliminary Blood SPECIMEN COLLECTED A&P Assessment and plan (1) ESRD on dialysis: Plan 1. End-stage renal disease on MWF schedule as outpatient, HD today 2. History of hypertension resume home medications 3. Anemia: Hemoglobin 11, monitor 4. History of CML 5. NSTEMI, management per primary and cardiology Patient evaluated using audiovisual cart. Time spent 40-minutes Consult Attestations 2 Medical Necessity Statement: per jennifer Coding Level of Care Code Acute Code for Chg Fwd Diagnoses ESRD on dialysis N18.6; Z99.2
[2023-09-11 06:15] LABS: Hepatitis B Surface AB 79.4 (11.5-1000); Hepatitis B Surface Antigen Non-Reactive (Nonreactive)
[2023-09-11 06:30] LABS: Glucose Point of Care 127 mg/dL (70-110)
--- NOTE | 2023-09-11 08:00 | USCV_ITS ---
Iris Rockwell Age: 77 Gender: F : 1945 Exam Date: 09/11/2023 07:38 Ordering Phys: Betzy Dorantes MD ([email or web address]) Technologist: Exam Location: [facility] [place] Indication: ? mi BP: 115 / 54 HR: 54 Rhythm: Sinus Technical Quality: Adequate MEASUREMENTS (Male / Female) Normal Values 2D ECHO LV Diastolic Diameter PLAX 5.4 cm 4.2 - 5.9 / 3.9 - 5.3 cm IVS Diastolic Thickness 1.5 cm 0.6 - 1.0 / 0.6 - 0.9 cm IVS Systolic Thickness 1.8 cm LVPW Diastolic Thickness 1.4 cm 0.6 - 1.0 / 0.6 - 0.9 cm LVPW Systolic Thickness 1.9 cm LVOT Diameter 2.0 cm LV Ejection Fraction 2D Teich 52.0 % LV Ejection Fraction MOD 2C 67.5 % LV Ejection Fraction 2C AL 66.4 % LA Diameter 3.2 cm RA Systolic Volume 4C AL 70.8 ml RA Systolic Volume 4C MOD 56.1 ml IVC Diameter 2.5 cm M-MODE LA Ao Ratio MM 1.0 AV Cusp Separation MM 2.1 cm DOPPLER AV Peak Velocity 191.0 cm/s LVOT Peak Velocity 85.0 cm/s AV Area Cont Eq vti 1.3 cm squared AV Area Cont Eq pk 1.4 cm squared MV Peak Velocity 205.0 cm/s MV Area PHT 3.2 cm squared Mitral E to A Ratio 0.9 TV Peak Velocity 246.0 cm/s TR Peak Velocity 285.0 cm/s TR Peak Gradient 32.5 mmHg PV Peak Velocity 95.0 cm/s FINDINGS Left Ventricle Normal LV size with a slightly diminished ejection fraction of around 50%. Moderate diffuse hypokinesia of the inferior and inferolateral wall segments.Grade I/IV diastolic dysfunction (abnormal relaxation filling pattern), normal to mildly elevated filling pressures. Right Ventricle The right ventricle is normal in size and function. Right Atrium The right atrium is normal in size. Left Atrium Mildly increased left atrial size. Mitral Valve Moderate mitral annular calcification. Mild mitral valve regurgitation. Aortic Valve Aortic valve sclerosis. Tricuspid Valve Trace tricuspid valve regurgitation. Pulmonic Valve Trace pulmonary valve regurgitation. Pericardium Normal pericardium without effusion. Aorta Normal ascending aorta dimension. IVC Normal inferior vena cava. CONCLUSIONS Normal LV size with a slightly diminished ejection fraction of around 50%. Moderate diffuse hypokinesia of the inferior and inferolateral wall segments.Grade I/IV diastolic dysfunction (abnormal relaxation filling pattern), normal to mildly elevated filling pressures. Mildly increased left atrial size. Moderate mitral annular calcification. Mild mitral valve regurgitation. Aortic valve sclerosis. Trace pulmonary valve regurgitation. There is no pericardial effusion. Compared to the study from 07/25/2023, the wall motion abnormalities involving the inferolateral and inferior wall segments appear to be new Dr Betzy Dorantes MD FAC (Electronically Signed) Final Date: 11 September 2023 18:48 S
--- NOTE | 2023-09-11 08:00 | PC.NURSE ---
Pt is off floor for dialysis.
--- NOTE | 2023-09-11 08:22 | PC.HD ---
Heparin 1000 units loading dose administered via LAVF venous needle at 0811 per machine packaging technician's orders.
--- NOTE | 2023-09-11 09:34 | PC.CHAP ---
Pastoral Care Encounter/Spiritual Assessment Type of Contact [] Declined retail marketing coordinator visit [] Patient/Family/Request visit [] Outpatient visit [] Follow-up visit [] Physician referral [] Code/Alert [x] Routine visit [] Staff referral [] Actively dying [] Patient sleeping [] Family support [] [] Out of room [] Palliative care [] [] Receiving care in room [] Pre-surgical visit [] Trauma [] Long length of stay [] ICU visit [] Other: Relational/Emotional Strength [] Patient feels connected with others/family/visitors/staff [] Distress [] Loneliness/isolation [] Abandonment Spirituality of Patient [] Person of Layla [] Attends Voodoo of their Layla [] Believes in Prayer [] Reads Bible or Rastafari materials [] There are Spiritual issues to be addressed Churn Operator Margarine Interventions [] Prayer [] Active listening [] Non-anxious presence [] Spiritual/emotional support [] Crisis/trauma care [] Spiritual counseling [] Bereavement support [] Provided bereavement packet [] Provided Bible/devotional materials [] Provided toy/stuffed animal, coloring book to patient or family member [] Provided Communion [] Anointing/[place] [] Salvation [] Completed spiritual assessment [] Other: Impact on Illness or Injury [] Angry [] Fearful [] Anxious [] Often cries [] Exhaustion [] Unable to work [] Unable to attend samaritan [] Unable to walk/stand [] Unable to read [] Unable to drive [] Unable to eat/drink [] Unable to sleep [] Unable to be with family [] Patient intubated [] Other: Summary Precaution Time spent with patient
[2023-09-11 09:50] LABS: Partial Thromboplastin Time 118.3 SECONDS (23.9-36.7)
--- NOTE | 2023-09-11 10:08 | PC.SOCIAL ---
Pg 2 IMM Explained to pt Pg 2 IMM. No questions voiced. Provided pt a copy. Initialed, dated, & timed a copy & placed in chart.
[2023-09-11] MEDS: epoetin alfa 1000 Unit/0.05 mL (ESRD) 20000 UNIT IVP (11:55)
[2023-09-11] MEDS: pantoprazole DR 40 mg Tablet PO (11:57)
[2023-09-11] MEDS: carvedilol 3.125 mg Tablet PO ×2 (11:57→20:30)
[2023-09-11] MEDS: cyanocobalamin 1,000 mcg Tablet 1000 MCG PO (11:57)
[2023-09-11] MEDS: clopidogrel 75 mg Tablet PO (11:57)
[2023-09-11 13:00] LABS: Glucose Point of Care 105 mg/dL (70-110)
[2023-09-11] MEDS: insulin glargine 100 units/1 mL 15 UNIT SUBCUT (16:56)
[2023-09-11] MEDS: insulin lispro 100 unit/1 mL SUBCUT ×2 (16:57→20:42)
[2023-09-11 17:06] LABS: Glucose Point of Care 205 mg/dL (70-110)
--- NOTE | 2023-09-11 17:36 | PM.PN ---
Subjective Subjective: No new complaints. Underwent dialysis today. Medications: Reviewed: Yes Vitals/I&O/Wt Last Vital Signs Temp 98.2 F 09/11/23 12:50 Pulse 74 09/11/23 15:17 Resp 16 09/11/23 15:17 BP 149/70 09/11/23 15:17 Pulse Ox 93 09/11/23 15:17 O2 Del Method Nasal Cannula 09/11/23 07:56 O2 Flow Rate 2 09/11/23 07:56 09/11/23 09/11/23 09/11/23 06:59 14:59 22:59 Intake Total 222.917 / 472.917 717.667 / 717.667 Output Total 0 / 0 2800 / 2800 Balance 222.917 / 472.917 -2082.333 / -2082.333 Weight last 48 hrs Weight 89.5 kg Weight 91.172 kg Weight 87.679 kg Weight 87.997 kg Physical Exam Narrative: General: No acute distress, AO x3 HEENT: PERRLA, pupils bilaterally equal and reactive, pallors not present Chest: Normal vesicular breath sounds, no added sounds, equal good air entry bilaterally CVS: S1-S2 regular, no murmurs, no tachycardia, no gallops, no rubs Abdomen: Soft, nontender, no organomegaly, bowel sounds present Neuro: No focal deficits, no facial deformity, AO x3, power 5/5 in all limbs Data 09/11/23 02:13 09/11/23 02:13 Micro: Microbiology 09/10/23 15:10 Blood Culture - Preliminary Blood NEGATIVE TO DATE 09/10/23 14:56 Blood Culture - Preliminary Blood NEGATIVE TO DATE A&P Assessment and plan (1) Hypertension: Qualifiers: Hypertension type: essential hypertension Qualified Code(s): I10 - Essential (primary) hypertension (2) CAD (coronary artery disease): Qualifiers: Coronary Disease-Associated Artery/Lesion type: [place] artery [place] vs. transplanted heart: [place] heart Associated angina: without angina Qualified Code(s): I25.10 - Atherosclerotic heart disease of [place] coronary artery without angina pectoris (3) Diabetes: Qualifiers: Diabetes mellitus type: type 2 Diabetes mellitus ferry terminal supervisor insulin use: with ferry terminal supervisor use Diabetes mellitus complication status: with neurologic complications Diabetes mellitus complication detail: with polyneuropathy Qualified Code(s): E11.42 - Type 2 diabetes mellitus with diabetic polyneuropathy; Z79.4 - ferry terminal supervisor (current) use of insulin (4) GERD (gastroesophageal reflux disease): Qualifiers: Esophagitis presence: esophagitis presence not specified Qualified Code(s): K21.9 - Gastro-esophageal reflux disease without esophagitis (5) ESRD on hemodialysis: (6) Chronic myeloid leukemia: (7) Bilateral leg weakness: (8) Fall: Qualifiers: Encounter type: initial encounter Qualified Code(s): W19.XXXA - Unspecified fall, initial encounter (9) ANA (obstructive sleep apnea): (10) NSTEMI (non-ST elevated myocardial infarction): Plan Non-STEMI Dr. Dorantes consulted No active chest pain Patient hemodynamic stable Start heparin Loaded with aspirin and Plavix Further plan will be made after echo report as per cardiology Patient has history of coronary disease with 1 stent placement in the past End-stage renal disease On dialysis for last 5 years Consulted nephro for Monday dialysis session Recurrent falls Check B12 Patient has diabetic neuropathy Rule out BPPV No sign of stroke CT head unremarkable Patient is denying syncopal events She never had any seizure related activity She drives back and forth from dialysis center on her own, she lives alone, has had multiple falls in the past few weeks Patient thinks it is related to her chemotherapeutic agent Will request PT I have asked patient to reconsider her driving risk factors Acute hypoxia Patient stating that she has diagnosis of sleep apnea but does not use CPAP She was on oxygen in the past but that has been taken off recently Currently on 2 L saturating 98% Review of records: Preserved ejection fraction with hypokinesia secondary to Tak[place]ubo which was diagnosed in 2019 EF 45 to 50% No active sign of heart failure Stent was placed in mid LAD she also had mild disease of right coronary artery with circumflex artery she used to follow-up with Dr. Davila CML: Recently started nilotinib Spoke with Dr. Jose E Rinaldi notified Plan for today: September 11, 2023. Plan to undergo coronary angiogram tomorrow in view of NSTEMI. Continue heparin drip for now. Continue aspirin, atorvastatin, Plavix, Coreg. Appreciate cardiology recommendations. Continue dialysis per schedule. Discussed care with on-call oncology. Discontinue nilotinib as drug may be associated with ME. Patient will need to follow-up with oncology as outpatient to determine alternate treatment regimen. No current chest pain. Attestations Medical Necessity Statement*: Plan angiogram tomorrow. Coding Level of Care Code Acute Code for Chg Fwd Diagnoses Essential hypertension I10 Hypertension type: essential hypertension Coronary artery disease involving [place] coronary artery of [place] heart without angina pectoris I25.10 Coronary Disease-Associated Artery/Lesion type: [place] artery [place] vs. transplanted heart: [place] heart Associated angina: without angina Type 2 diabetes mellitus with diabetic polyneuropathy, with long-term current use of insulin E11.42; Z79.4 Diabetes mellitus type: type 2 Diabetes mellitus ferry terminal supervisor insulin use: with ferry terminal supervisor use Diabetes mellitus complication status: with neurologic complications Diabetes mellitus complication detail: with polyneuropathy Gastroesophageal reflux disease, esophagitis presence not specified K21.9 Esophagitis presence: esophagitis presence not specified ESRD on hemodialysis N18.6; Z99.2 Chronic myeloid leukemia C92.10 Bilateral leg weakness R29.898 Fall W19.XXXA Encounter type: initial encounter ANA (obstructive sleep apnea) G47.33 NSTEMI (non-ST elevated myocardial infarction) I21.4
[2023-09-11 18:29] LABS: Partial Thromboplastin Time 39.5 SECONDS (23.9-36.7)
--- NOTE | 2023-09-11 18:32 | PM.PN ---
Subjective Subjective: Patient had hemodialysis today. She is feeling okay. Denies any chest pain. No unusual shortness of breath. The rhythm seems to be normal sinus. Medications: Medication Review Details: Current Medications Acetaminophen (Acetaminophen 325 Mg Tablet) 650 mg PO Q6H PRN PRN Reason: Mild/Mod Pain Or Temp >/= 101 Last Admin: 09/10/23 21:23 Dose: 650 mg Albuterol/Ipratropium (Ipratropium-Albuterol 3 Ml Neb) 3 ml INHALATION Q6H PRN PRN Reason: SHORTNESS OF BREATH Aspirin (Aspirin 81 Mg Ec Tablet) 81 mg PO QAM [facility] Last Admin: 09/11/23 05:03 Dose: 81 mg Atorvastatin Calcium (Atorvastatin 40 Mg Tablet) 40 mg PO BEDTIME [facility] Last Admin: 09/10/23 21:00 Dose: 40 mg Carvedilol (Carvedilol 3.125 Mg Tablet) 3.125 mg PO BID@08,21 [facility] Last Admin: 09/11/23 11:57 Dose: 3.125 mg Clopidogrel Bisulfate (Clopidogrel 75 Mg Tablet) 75 mg PO DAILY [facility] Last Admin: 09/11/23 11:57 Dose: 75 mg Cyanocobalamin (Cyanocobalamin 1,000 Mcg Tablet) 1,000 mcg PO DAILY [facility] Last Admin: 09/11/23 11:57 Dose: 1,000 mcg Folic Acid (Folic Acid 1 Mg Tablet) 1 mg PO [facility] Last Admin: 09/11/23 05:03 Dose: 1 mg Heparin Sodium (Porcine) (Heparin 5,000 Unit/Ml Inj 1 Ml) 0 unit IV PRN PRN; Protocol PRN Reason: Heparin weight-base protocol Last Admin: 09/10/23 20:10 Dose: 4,400 unit Dextrose (D5w) 500 mls @ 0 mls/hr IV ONCE PRN; Protocol PRN Reason: Adult Acute Hypoglycemia Prot Dextrose (D10w) 125 mls @ 750 mls/hr IV PRN PRN; Protocol PRN Reason: Adult Acute Hypoglycemia Nursing Protocol Dextrose (D10w) 250 mls @ 1,000 mls/hr IV PRN PRN; Protocol PRN Reason: Adult Acute Hypoglycemia Nursing Protocol Heparin Sodium/Sodium Chloride (Heparin Drip) 25,000 unit in 500 mls @ 0 mls/hr IV .Q0M [facility]; Protocol Last Titration: 09/11/23 11:56 Dose: 8.52 unit/kg/hr, 15 mls/hr Sodium Chloride (Sodium Chloride 0.9%) 1,000 mls @ 0 mls/hr IV .Q0M PRN PRN Reason: hypotension or symptomatic Albumin Human (Albumin) 12.5 gm in 50 mls @ 60 mls/hr IV PRN PRN PRN Reason: Hypotension and/or symptomatic Insulin Glargine (Insulin Glargine 100 Units/1 Ml) 15 unit SUBCUT QPM [facility] Last Admin: 09/11/23 16:56 Dose: 15 unit Insulin Human Lispro (Insulin Lispro 100 Unit/1 Ml) 0 unit SUBCUT WM&BEDTIME [facility]; Protocol Last Admin: 09/11/23 16:57 Dose: 4 unit Nitroglycerin (Nitroglycerin 1 Gm/Inch Oint Pkt) 1 inch TOPICAL Q6H [facility] Last Admin: 09/11/23 13:42 Dose: Not Given Non-Formulary Medication (Sevelamer Carbonate) 7.2 gm PO TID [facility] Last Admin: 09/11/23 13:41 Dose: Not Given Non-Formulary Medication (Nilotinib) 300 mg PO Q12H [facility] Last Admin: 09/11/23 11:58 Dose: Not Given Ondansetron HCl (Ondansetron 2 Mg/Ml Sdv 2 Ml) 4 mg IVP Q8H PRN PRN Reason: vomiting, or N/V if npo Pantoprazole Sodium (Pantoprazole Dr 40 Mg Tablet) 40 mg PO DAILY [facility] Last Admin: 09/11/23 11:57 Dose: 40 mg Sertraline HCl (Sertraline 100 Mg Tablet) 100 mg PO QAM [facility] Last Admin: 09/11/23 05:03 Dose: 100 mg Vancomycin HCl (Vancomycin 125 Mg Capsule) 125 mg PO QID [facility] Last Admin: 09/11/23 16:57 Dose: 125 mg Vitals/I&O/Wt Last Vital Signs Temp 98.2 F 09/11/23 12:50 Pulse 87 09/11/23 17:39 Resp 22 H 09/11/23 17:39 BP 131/52 09/11/23 17:39 Pulse Ox 89 L 09/11/23 17:39 O2 Del Method Nasal Cannula 09/11/23 07:56 O2 Flow Rate 2 09/11/23 07:56 09/11/23 09/11/23 09/11/23 06:59 14:59 22:59 Intake Total 222.917 / 472.917 717.667 / 717.667 240 / 957.667 Output Total 0 / 0 2800 / 2800 Balance 222.917 / 472.917 -2082.333 / -2082.333 240 / -1842.333 Weight last 48 hrs Weight 197 lb 5.019 oz Weight 201 lb Weight 193 lb 4.8 oz Weight 194 lb Physical Exam Narrative: GENERAL: The patient is alert and oriented times three. Not in any acute distress. HEENT: No significant pallor, icterus or lymphadenopathy.Oral cavity: There are no mucous membrane lesions. NECK: Trachea appears to be central. No masses noted. No JVD or thyromegaly appreciated. RESPIRATORY: Chest is symmetrical. No intercostals muscle retraction or any accessory muscle activation. There is no chest wall tenderness. Breath sounds are heard bilaterally. No rales or rhonchi heard. No evidence of any consolidation. BREASTS: Deferred. HEART: The heart sounds are normal. No S3 or S4. Ejection Systolic murmur grade 3 or 6 in the aortic area. No diastolic murmurs.. No pericardial rub ABDOMEN: No vessel pulsations or distention. No tenderness. No organomegaly appreciated. Bowel sounds are normally heard. : Deferred. RECTAL: Deferred. LYMPHATIC: No lymphadenopathy noted in the neck. EXTREMITIES: No edema or cyanosis. No clubbing. Peripheral pulses are weak bilaterally. MUSCULOSKELETAL: No acute joint deformities or swelling SKIN: There are no significant rashes or ecchymosis NEUROPSYCHIATRIC: The patient is alert and oriented x3. Appears to be in a good mood. No tremors or rigidity noted. Data 09/11/23 02:13 09/11/23 02:13 Other Labs: Laboratory Last Values WBC 55.61 10^3/uL (3.29-11.43) H* 09/11/23 02:13 RBC 3.30 10^6/uL (3.85-5.65) L 09/11/23 02:13 Hgb 9.70 g/dL (11.27-16.99) L 09/11/23 02:13 Hct 29.4 % (36-47) L 09/11/23 02:13 MCV 89.1 fl (85-98) 09/11/23 02:13 MCH 29.4 pg (27-33) 09/11/23 02:13 MCHC 33.0 g/dL (30-55) 09/11/23 02:13 RDW 18.6 % (12.1-15.1) H 09/11/23 02:13 Plt Count 671 10^3/cmm (157-399) H 09/11/23 02:13 MPV 11.6 fL (7.4-10.4) H 09/11/23 02:13 Neut % (Auto) 39.7 % 09/11/23 02:13 Lymph % (Auto) 6.1 % 09/11/23 02:13 [place] % (Auto) 3.6 % 09/11/23 02:13 Eos % (Auto) 1.1 % 09/11/23 02:13 Baso % (Auto) 6.0 % 09/11/23 02:13 Neut # (Auto) 22.10 10^3/uL (1.8-7.7) H 09/11/23 02:13 Lymph # (Auto) 3.4 10^3/uL (0.8-4.8) 09/11/23 02:13 [place] # (Auto) 2.0 10^3/uL (0.2-0.9) H 09/11/23 02:13 Eos # (Auto) 0.6 10^3/uL (0.0-0.8) 09/11/23 02:13 Baso # (Auto) 3.3 10^3/uL (0.0-0.1) H 09/11/23 02:13 Nucleated RBC % (auto) 0.9 % 09/11/23 02:13 Total Counted 100 (0-100) 09/10/23 14:56 Atypical Lymphs % 2.0 % (0-5) 09/10/23 14:56 Absolute Neutrophils 42.7 10^3/cmm (1.4-6.5) H 09/10/23 14:56 Segmented Neutrophils 60 % 09/10/23 14:56 Abs Segm Neuts (Man) 37.1 10/cmm (1.6-7.1) H 09/10/23 14:56 Band Neutrophils 9.0 % 09/10/23 14:56 Abs Band Neuts (Man) 5.6 10^3/cmm (0.0-1.2) H 09/10/23 14:56 Absolute Lymphocytes 8.7 10^3/cmm (1.2-3.4) H 09/10/23 14:56 Lymphocytes (Manual) 12 % 09/10/23 14:56 Monocytes (Manual) 3.0 % 09/10/23 14:56 Absolute Monocytes 1.9 10^3/cmm (0.1-0.6) H 09/10/23 14:56 Eosinophils (Manual) 1 % 09/10/23 14:56 Absolute Eosinophils 0.6 10^3/cmm (0.0-0.7) 09/10/23 14:56 Basophils (Manual) 0.0 % 09/10/23 14:56 Absolute Basophils 0.0 10^3/cmm (0.0-0.2) 09/10/23 14:56 Metamyelocytes 9.0 % 09/10/23 14:56 Myelocytes 4.0 % 09/10/23 14:56 Nucleated RBCs 2.0 /100WBC (0-1) H 09/10/23 14:56 Nucleated RBCs # 0.5 /100WBC 09/11/23 02:13 Platelet Estimate Increased (Normal) H 09/10/23 14:56 Giant Platelets Trace 09/10/23 14:56 Poikilocytosis Trace 09/10/23 14:56 Anisocytosis 1+ H 09/10/23 14:56 Macrocytosis Trace 09/10/23 14:56 APTT 118.3 SECONDS (23.9-36.7) H 09/11/23 08:57 Sodium 134 mmol/L (136-145) L 09/11/23 02:13 Potassium 3.5 mmol/L (3.5-5.1) 09/11/23 02:13 Chloride 94 mmol/L (98-107) L 09/11/23 02:13 Carbon Dioxide 28 mmol/L (22-29) 09/11/23 02:13 Anion Gap 15.5 (5-19) 09/11/23 02:13 BUN 38 mg/dL (8-23) H 09/11/23 02:13 Creatinine 5.2 mg/dL (0.5-0.9) H 09/11/23 02:13 GFR Calculation Not Reportable 09/11/23 02:13 Glucose 135 mg/dL (65-115) H 09/11/23 02:13 POC Glucose 205 mg/dL (70-110) H 09/11/23 16:50 Calculated Osmolality 289 mOsm/kg (285-295) 09/11/23 02:13 Lactic Acid 1.5 mmol/L (0.5-2.2) 09/10/23 14:56 Calcium 8.7 mg/dL (8.5-10.5) 09/11/23 02:13 Magnesium 2.0 mg/dL (1.7-2.3) 09/11/23 02:13 Total Bilirubin 0.4 mg/dL (0.15-1.2) 09/11/23 02:13 AST 27 U/L (0-32) 09/11/23 02:13 ALT 13 U/L (0-33) 09/11/23 02:13 Alkaline Phosphatase 122 U/L (35-105) H 09/11/23 02:13 Creatine Kinase 195 U/L (26-192) H 09/10/23 14:56 Troponin T Baseline 720 ng/L (0-10) H* 09/10/23 14:56 Troponin T 120 Minute 718.9 ng/L (0-10) H 09/10/23 17:32 Delta Troponin T -1.1 ABS# (0-10) L 09/10/23 17:32 Troponin T Hi Sens 6Hr 854.6 ng/L (0-10) H 09/10/23 20:46 Troponin T Hi Sens 6Hr Delta 134.6 ng/L (0-12) H* 09/10/23 20:46 NT-Pro-B Natriuret Pep > 40305 pg/mL (0-450) H 09/10/23 14:56 Total Protein 5.1 g/dL (6.6-8.7) L 09/11/23 02:13 Albumin 3.1 g/dL (3.5-5.2) L 09/11/23 02:13 Globulin 2.0 g/dL (1.3-4.6) 09/11/23 02:13 Procalcitonin 0.30 ng/mL (0-0.5) 09/10/23 14:56 TSH 0.71 uIU/mL (0.27-4.20) 09/10/23 14:56 Urine Color Yellow (Yellow) 09/10/23 15:37 Urine Appearance Clear (CLEAR) 09/10/23 15:37 Urine pH 7 (5-7) 09/10/23 15:37 Ur Specific [place] 1.005 (1.005-1.030) 09/10/23 15:37 Urine Protein 3+ (Negative) H 09/10/23 15:37 Urine Glucose (UA) Norm (Normal) 09/10/23 15:37 Urine Ketones 1+ (Negative) H 09/10/23 15:37 Urine Blood 2+ (Negative) H 09/10/23 15:37 Urine Nitrate Negative (Negative) 09/10/23 15:37 Urine Bilirubin 1+ (Negative) H 09/10/23 15:37 Urine Urobilinogen Norm mg/dL (Negative) 09/10/23 15:37 Ur Leukocyte Esterase Trace (Negative) H 09/10/23 15:37 Urine RBC 0-4 /hpf (0-2) H 09/10/23 15:37 Urine WBC 10-15 /hpf (0-5) H 09/10/23 15:37 Ur Squamous Epith Cells 0-4 /hpf (0-5) H 09/10/23 15:37 Amorphous Sediment Not Reportable 09/10/23 15:37 Urine Bacteria Trace /hpf (NONE) 09/10/23 15:37 Lymphoma Panel Cancelled 09/10/23 14:56 Immunophenotype Interp Cancelled 09/10/23 14:56 C. difficile (PCR) Positive (Negative) H 09/10/23 22:58 C.difficile Tox Confrm Negative (Negative) 09/10/23 22:58 Hep Bs Antigen Non-reactive (Nonreactive) 09/11/23 00:43 Hep Bs Antibody 79.4 (11.5-1000) 09/11/23 00:43 Micro: Microbiology 09/10/23 15:10 Blood Culture - Preliminary Blood NEGATIVE TO DATE 09/10/23 14:56 Blood Culture - Preliminary Blood NEGATIVE TO DATE A&P Assessment and plan (1) Elevated troponin: Most likely related to Non ST use myocardial infarction. Patient is currently asymptomatic. Hemodynamically stable. The troponin T at 6 hours has a delta of 130. May continue on the heparin, Plavix and aspirin. (2) Hypertension: The blood pressure is in the normal range. May continue on the current medications. Qualifiers: Hypertension type: essential hypertension Qualified Code(s): I10 - Essential (primary) hypertension (3) Aortic valve stenosis: I will be reviewing the echocardiogram. Qualifiers: Cardiac valve disease etiology: nonrheumatic Qualified Code(s): I35.0 - Nonrheumatic aortic (valve) stenosis (4) Atherosclerosis of coronary artery of [place] heart without angina pectoris: Patient has a history of atherosclerotic heart disease and PCI of the mid LAD lesion. This needs to be further evaluated. For further evaluation of the patient's coronary status, she requires a cardiac catheterization. This was discussed with the patient in detail. The risk of bleeding, hematoma, vascular injury, myocardial infarction, myocardial perforation, malignant cardiac arrhythmias ,CVA, renal failure and other concomitant complications were explained in detail. Patient and her daughter understood this well and consented to proceed Qualifiers: Coronary Disease-Associated Artery/Lesion type: [place] artery Qualified Code(s): I25.10 - Atherosclerotic heart disease of [place] coronary artery without angina pectoris (5) Hypercholesteremia: May continue on the current medications (6) Congestive heart failure: Currently compensated. Continue on the current measures. Qualifiers: Heart failure chronicity: acute on chronic Heart failure type: unspecified Qualified Code(s): I50.9 - Heart failure, unspecified (7) Diabetes: Management as per the primary Qualifiers: Diabetes mellitus type: type 2 Diabetes mellitus shelter insulin use: with shelter use Diabetes mellitus complication status: with neurologic complications Diabetes mellitus complication detail: with polyneuropathy Qualified Code(s): E11.42 - Type 2 diabetes mellitus with diabetic polyneuropathy; Z79.4 - [facility] (current) use of insulin (8) ESRD on hemodialysis: Patient gets hemodialysis 3 times a week. Continue on the current management. (9) Chronic myeloid leukemia: Management as per the heme oncology service Plan Reviewed echocardiogram. Continue on the current medications. Schedule for a cardiac catheterization in the morning Based on the results, further recommendations will be made. Attestations Medical Necessity Statement*: Patient requires continued hospital stay for close monitoring and further management Coding Level of Care Code 69786 Diagnoses Elevated troponin R77.8 Essential hypertension I10 Hypertension type: essential hypertension Nonrheumatic aortic valve stenosis I35.0 Cardiac valve disease etiology: nonrheumatic Atherosclerosis of [place] coronary artery of [place] heart without angina pectoris I25.10 Coronary Disease-Associated Artery/Lesion type: [place] artery Hypercholesteremia E78.00 Congestive heart failure I50.9 Heart failure chronicity: acute on chronic Heart failure type: unspecified Type 2 diabetes mellitus with diabetic polyneuropathy, with long-term current use of insulin E11.42; Z79.4 Diabetes mellitus type: type 2 Diabetes mellitus shelter insulin use: with shelter use Diabetes mellitus complication status: with neurologic complications Diabetes mellitus complication detail: with polyneuropathy ESRD on hemodialysis N18.6; Z99.2 Chronic myeloid leukemia C92.10
[2023-09-11] MEDS: atorvastatin 40 mg Tablet PO (20:30)
[2023-09-11] MEDS: heparin drip 25,000 UNIT/500 ML PREMIX 19 UNIT IV (20:42)
[2023-09-11 20:45] LABS: Glucose Point of Care 170 mg/dL (70-110)
[2023-09-12] VITALS (16 sets, daily range): BP systolic 76–144; BP diastolic 37–68; PULSE 58–72; RESP 12–18; TEMP 37; O2SAT 92–97
[2023-09-12 01:13] LABS: Platelet Count 661 10^3/cmm (157-399)
[2023-09-12 01:34] LABS: Partial Thromboplastin Time 68.4 SECONDS (23.9-36.7)
[2023-09-12] MEDS: nitroglycerin 1 gm/inch oint Pkt 1 INCH TOPICAL (02:06)
[2023-09-12] MEDS: aspirin 81 mg EC Tablet PO (05:00)
[2023-09-12] MEDS: folic acid 1 mg Tablet PO (05:00)
[2023-09-12] MEDS: sertraline 100 mg Tablet PO (05:00)
[2023-09-12 06:53] LABS: Glucose Point of Care 133 mg/dL (70-110)
--- NOTE | 2023-09-12 07:00 | XACV_ITS ---
Exam Room: [facility] Ht: 163 cm Wt: 92 kg BSA: 2.07 m2 Gender: Female : 1945 Any Known Allergies: Other Exam Priority: Routine Procedure(s): Procedure Description: Diagnostic procedure Procedure Description: Left Heart Catheterization Procedure Description: Coronary Angiography Jose E ZEE; Diagnostic Cath Status: Urgent Diagnostic Findings * The left main is a medium caliber vessel with no significant stenotic lesion. * The left anterior descending artery is a medium caliber elongated vessel which appears to wrap around the LV apex. The proximal LAD was found to have mild diffuse disease of 20 to 30%. The mid LAD was found to have a stented segment which was widely open. The first septal ribbon hand was found to have an ostial narrowing of around 60%. The artery appears to give off multiple small diagonal branches with no significant stenotic lesions.. * There is a small to medium caliber intermedius vessel with an ostial narrowing of around 50%. * The left circumflex artery is a medium caliber vessel which was found to have total occlusion of the first and second obtuse marginal branches. Some trickling of blood was noted in these vessels. The third obtuse marginal branch was found to have mild diffuse intimal irregularities.. * The right coronary artery is a medium caliber vessel which has a low and posterior takeoff. The artery appears to have a high-grade ostial stenosis. Selective catheterization was somewhat difficult. The artery gives off an RV branch near to the ostium which also was found to have a moderate ostial narrowing. The PDA and the PLV branches were found to have mild diffuse irregularities. No significant stenotic lesions. Conclusions 1. 77-year-old white female with a history of atherosclerotic heart disease and previous PCI, presenting with history of fall and acute elevation of the troponin T. The echocardiogram revealed a diffuse hypokinesia of the inferolateral and basal posterior wall hypokinesia. For further evaluation of her coronary status, a cardiac catheterization was recommended. Patient underwent left heart catheterization with left and right coronary angiogram today. The findings are as follows.. 2. 1. Medium caliber left main with no significant stenotic lesions. 2. Medium caliber left and descending artery which appears to wraparound the LV apex. Patent stent at the mid segment of the artery. Mild diffuse disease in the rest of the vessels.3. Small to medium caliber intermedius vessel with 50% ostial tubular narrowing. 4. The circumflex artery was found to have a total occlusion of the first and second obtuse marginal branches with some trickling of flow.5. Right coronary artery has a posterior low takeoff. There is a high-grade ostial stenosis. Mild diffuse in the rest of the vessels. The first RV branch was found to be originating near to the ostium with moderate ostial stenosis. The mid segment of this artery was found to have moderate diffuse disease.6. LV gram was not performed. LVEDP was 26 mmHg.. 3. I reviewed and discussed the angiogram findings with Dr. Boston. It was thought to be appropriate to consider PCI of the ostial RCA lesion and possible intervention of the obtuse marginal lesions. Dr. Boston took cover further management this patient at this point. Diagnostic RX Recommendation: PCI w/o planned CABG LV EDP: 26 mmHg Left Ventriculography Findings: * LV gram was not performed. The LVEDP was 26 mmHg. Pressures Phase:Rest AO : 120 / 40 ( 69 ) @ 9:42:00 AM 135 / 54 ( 83 ) @ 9:42:00 AM 105 / 48 ( 68 ) @ 9:44:00 AM 85 / 44 ( 61 ) @ 9:45:00 AM 85 / 46 ( 62 ) @ 9:46:00 AM 103 / 55 ( 66 ) @ 9:54:00 AM 97 / 53 ( 72 ) @ 9:59:00 AM 89 / 52 ( 69 ) @ 10:00:00 AM 129 / 50 ( 81 ) @ 10:04:00 AM 124 / 52 ( 78 ) @ 10:05:00 AM LV : 129 / 14 / 26 @ 10:04:00 AM 130 / 13 / 26 @ 10:04:00 AM Valves Phase:DefaultPhase AV : 1.0 @ 9:15:14 AM AV Mean Gradient: 0.0 @ 9:15:14 AM Clinical Evaluation EBL: 5mL-10mL Procedural Details Pre-Procedure Time Out. Identified patient by full name and date of as verbalized by the patient/guarantor. Does the consent match the physician's order: Yes. Accurate & Complete Informed Consent: Yes. Inpatient/Outpatient History & Physical on Chart: Yes. If H&P is completed, is and addenduem needed: No; If yes, is the addendum complete: N/A. Visualize and Verify Site with Patient/Guarantor: N/A. Relevant Radiology Images available: Yes. Pre-op teaching completed and patient verbalized understanding. The risks, benefits, and alternatives of sedation and/or procedure were discussed by physician. The patient agrees to continue. Procedure started. Physician arrived. [facility] Clinical Fraility Score: 5: Mildly Frail. Chainstitch Hemmer Indications: Other. Chest Pain Symptom Assessment: Atypical Angina. Correct patient, site and procedure confirmed by cath team. Current diagnosis: NSTEMI. PERRLA. Strong, equal hand clinical program manager bilaterally. Lungs clear x 5 lobes. IV Site on Arrival: 18 gauge in the left anticubital. IV Fluids: 0.9% NaCl at KVO. 0 mL infused prior to clinical laboratory service teacher. Pre Procedural Pulses: right radial was 2+. Oxygen started at 2liters/min via nasal canula. right groin was prepped with chloroprep then draped in the usual sterile fashion. right radial was prepped with chloroprep then draped in the usual sterile fashion. Baseline sample Acquired. HR: 68 BPM. Physician scrubbed in. Immediate Pre-Procedure Time Out. Correct Patient: Yes; Correct Procedure: Yes; Correct Site: Yes; Correct Patient Position: Yes; Correct Supplies: Yes; Dried Flammable Prep: Yes; Blood Products Available: N/A;. Lidocaine 1% infiltrated to the right radial. Arterial access obtained. The blood pressure cuff is on the right leg. Using the AO pressure. ACT drawn. Results 157 seconds. Therapeutic limits - pre-heparin administration 90-150 seconds and monitoring heparin during a vascular procedure >250 seconds. A 5 senegalese Zurdo catheter in over wire. Multiple views taken of left coronary artery. Catheter redirected to the RCA. Catheter removed over the exchange wire. A 5 senegalese JR4 catheter in over wire. Catheter removed over the exchange wire. A 5 senegalese 3DRC catheter in over wire. Multiple views taken of right coronary artery. Dr. Boston arrived to review films. EDP Sample taken: LV 129/14,26; HR: 64 BPM; SpO2: 96%. Pullback taken: LV 130/13,26; AO 129/50(81); Mean: 0mmHg, Peak to Peak: 1mmHg, SEP: 15sec/min; HR: 64 BPM; SpO2: 96%. Catheter removed over the exchange wire. A TR Band was successful obtaining hemostatsis at the Right Radial artery insertion site. Post Procedure: Pulses reassessed and unchanged. PERRLA. Strong, equal hand clinical program manager bilaterally. No VTE prophylaxis required. Medication's Wasted: Nitro = 49.8 mg. Medication's Wasted: Heparin = 1000 units. Complications: None. Estimated blood loss: 5mL-10mL. Responsiveness - Normal response to verbal stimuli; alert and oriented, PERRLA. Airway - Unaffected, no intervention required; spontaneous ventilation. Circulation: W/N/L, pulses unchanged. Nausea/Vomiting: No. Procedure completed. Patient transferred by bed to 1st floor. Vital chart was stopped. Access Site Site: Right Radial artery Sheath Size: 6 Fr Hemostasis Method: TR Band Hemostasis Success: Successful Procedure Medications Start: 8:23 AM Stop: 8:23 AM Medication: Benadryl Amount: 25 mg Route: I.V. Start: 8:41 AM Stop: 8:41 AM Medication: Verapamil Amount: 5 mg Route: I.A. Start: 8:42 AM Stop: 8:42 AM Medication: Nitrogylcerin Amount: 200 mcg Route: I.A. Start: 8:43 AM Stop: 8:43 AM Medication: Versed 1 mg and Fentanyl 25 mcg Amount: 1 Route: I.V. Start: 8:45 AM Stop: 8:45 AM Medication: Heparin Amount: 3000 units Route: I.V. I, the attending physician, have reviewed and verified all procedure medications. Yes, all medications given per verbal order History/Risk Factors Hypertension: Yes Dyslipidemia: No Peripheral Arterial Disease (PAD): Yes Myocardial Infarction (FL): No Obesity: No Renal Disease: Yes Tobacco Use: Never Dialysis: Current Prior Interventions PCI: No CABG: No Valve Surgery: No Report Signatures Finalized by Dr Betzy Dorantes MD [facility] on 09/12/2023 10:39 PM
[2023-09-12 07:18] LABS: Partial Thromboplastin Time 65.5 SECONDS (23.9-36.7)
--- NOTE | 2023-09-12 08:11 | W.PM.OPSUD ---
Surgery/Procedure H&P Update DATE OF PROCEDURE: September 12, 2023 DATE H&P PERFORMED: 09/10/23 H&P UPDATE INFORMATION: I have reviewed H&P completed within last 30 days, I have examined patient prior to procedure and No changes to prior documentation PREOP DIAGNOSIS: ASHD PRIMARY INDICATION FOR PROCEDURE: NSTEMI/ previous PCI PLANNED PROCEDURE: [facility] awith coronary angio and possible PCI PATIENT REASSESSED PRIOR TO SEDATION, WITH NO CHANGE NOTED: Yes PHYSICAL EXAM: alert, oriented x 3, clear to auscultation bilaterally and regular rate & rhythm AIRWAY EVAL/ANESTHESIA PLAN: normal airway, see other exam findings, ASA III, ASA IV, Monitored Anesthesia, Local Anesthesia, Risks, benefits & alternatives of sedation and/or procedure discussed and Patient agrees to continue as planned
--- NOTE | 2023-09-12 08:13 | P.PN_ITS ---
Subjective 2 Subjective: The patient is feeling okay. No chest pain or shortness of breath. She is remaining afebrile. She had the hemodialysis yesterday. Medications: Medication Review Details: Current Medications Acetaminophen (Acetaminophen 325 Mg Tablet) 650 mg PO Q6H PRN PRN Reason: Mild/Mod Pain Or Temp >/= 101 Last Admin: 09/10/23 21:23 Dose: 650 mg Albuterol/Ipratropium (Ipratropium-Albuterol 3 Ml Neb) 3 ml INHALATION Q6H PRN PRN Reason: SHORTNESS OF BREATH Aspirin (Aspirin 81 Mg Ec Tablet) 81 mg PO QAM [facility] Last Admin: 09/12/23 05:00 Dose: 81 mg Atorvastatin Calcium (Atorvastatin 40 Mg Tablet) 40 mg PO BEDTIME [facility] Last Admin: 09/11/23 20:30 Dose: 40 mg Carvedilol (Carvedilol 3.125 Mg Tablet) 3.125 mg PO BID@08,21 [facility] Last Admin: 09/11/23 20:30 Dose: 3.125 mg Clopidogrel Bisulfate (Clopidogrel 75 Mg Tablet) 75 mg PO DAILY [facility] Last Admin: 09/11/23 11:57 Dose: 75 mg Cyanocobalamin (Cyanocobalamin 1,000 Mcg Tablet) 1,000 mcg PO DAILY [facility] Last Admin: 09/11/23 11:57 Dose: 1,000 mcg Folic Acid (Folic Acid 1 Mg Tablet) [facility] [place] Admin: 09/12/23 05:00 Dose: 1 mg Heparin Sodium (Porcine) (Heparin 5,000 Unit/Ml Inj 1 Ml) 0 unit IV PRN PRN; Protocol PRN Reason: Heparin weight-base protocol Last Admin: 09/10/23 20:10 Dose: 4,400 unit Dextrose (D5w) 500 mls @ 0 mls/hr IV ONCE PRN; Protocol PRN Reason: Adult Acute Hypoglycemia Prot Dextrose (D10w) 125 mls @ 750 mls/hr IV PRN PRN; Protocol PRN Reason: Adult Acute Hypoglycemia Nursing Protocol Dextrose (D10w) 250 mls @ 1,000 mls/hr IV PRN PRN; Protocol PRN Reason: Adult Acute Hypoglycemia Nursing Protocol Heparin Sodium/Sodium Chloride (Heparin Drip) 25,000 unit in 500 mls @ 0 mls/hr IV .Q0M [facility]; Protocol Last Admin: 09/11/23 20:42 Dose: 10.8 unit/kg/hr, 19 mls/hr Sodium Chloride (Sodium Chloride 0.9%) 1,000 mls @ 0 mls/hr IV .Q0M PRN PRN Reason: hypotension or symptomatic Albumin Human (Albumin) 12.5 gm in 50 mls @ 60 mls/hr IV PRN PRN PRN Reason: Hypotension and/or symptomatic Insulin Glargine (Insulin Glargine 100 Units/1 Ml) 15 unit SUBCUT QPM [facility] Last Admin: 09/11/23 16:56 Dose: 15 unit Insulin Human Lispro (Insulin Lispro 100 Unit/1 Ml) 0 unit SUBCUT WM&BEDTIME JT; Protocol Last Admin: 09/12/23 07:12 Dose: Not Given Nitroglycerin (Nitroglycerin 1 Gm/Inch Oint Pkt) 1 inch TOPICAL Q6H [facility] Last Admin: 09/12/23 02:06 Dose: 1 inch Non-Formulary Medication (Sevelamer Carbonate) 7.2 gm PO TID [facility] Last Admin: 09/11/23 20:35 Dose: Not Given Non-Formulary Medication (Nilotinib) 300 mg PO Q12H [facility] Last Admin: 09/11/23 20:35 Dose: Not Given Ondansetron HCl (Ondansetron 2 Mg/Ml Sdv 2 Ml) 4 mg IVP Q8H PRN PRN Reason: vomiting, or N/V if npo Pantoprazole Sodium (Pantoprazole Dr 40 Mg Tablet) 40 mg PO DAILY [facility] Last Admin: 09/11/23 11:57 Dose: 40 mg Sertraline HCl (Sertraline 100 Mg Tablet) 100 mg PO QAM [facility] Last Admin: 09/12/23 05:00 Dose: 100 mg Vancomycin HCl (Vancomycin 125 Mg Capsule) 125 mg PO QID [facility] Last Admin: 09/11/23 20:30 Dose: 125 mg Vitals/I&O/Wt Last Vital Signs Temp 99.0 F 09/11/23 19:25 Pulse 68 09/12/23 04:48 Resp 17 09/12/23 03:08 BP 130/52 09/12/23 03:08 Pulse Ox 96 09/12/23 03:08 O2 Del Method Nasal Cannula 09/12/23 03:08 O2 Flow Rate 2.5 09/11/23 19:25 09/11/23 09/12/23 09/12/23 22:59 06:59 14:59 Intake Total 618.767 / 1336.434 30 / 1366.434 Balance 618.767 / -1463.566 30 / -1433.566 Weight last 48 hrs Weight 202 lb Weight 197 lb 5.019 oz Weight 201 lb Weight 193 lb 4.8 oz Weight 194 lb Physical Exam 2 Narrative: GENERAL: The patient is alert and oriented times three. Not in any acute distress. HEENT: No significant pallor, icterus or lymphadenopathy.Oral cavity: There are no mucous membrane lesions. NECK: Trachea appears to be central. No masses noted. No JVD or thyromegaly appreciated. RESPIRATORY: Chest is symmetrical. No intercostals muscle retraction or any accessory muscle activation. There is no chest wall tenderness. Breath sounds are heard bilaterally. No rales or rhonchi heard. No evidence of any consolidation. BREASTS: Deferred. HEART: The heart sounds are normal. No S3 or S4. Ejection Systolic murmur grade 3 or 6 in the aortic area. No diastolic murmurs.. No pericardial rub ABDOMEN: No vessel pulsations or distention. No tenderness. No organomegaly appreciated. Bowel sounds are normally heard. : Deferred. RECTAL: Deferred. LYMPHATIC: No lymphadenopathy noted in the neck. EXTREMITIES: No edema or cyanosis. No clubbing. Peripheral pulses are weak bilaterally. MUSCULOSKELETAL: No acute joint deformities or swelling SKIN: There are no significant rashes or ecchymosis NEUROPSYCHIATRIC: The patient is alert and oriented x3. Appears to be in a good mood. No tremors or rigidity noted. Data 09/12/23 00:49 09/11/23 02:13 Other Labs: Laboratory Last Values WBC 55.61 10^3/uL (3.29-11.43) H* 09/11/23 02:13 RBC 3.30 10^6/uL (3.85-5.65) L 09/11/23 02:13 Hgb 9.70 g/dL (11.27-16.99) L 09/11/23 02:13 Hct 29.4 % (36-47) L 09/11/23 02:13 MCV 89.1 fl (85-98) 09/11/23 02:13 MCH 29.4 pg (27-33) 09/11/23 02:13 MCHC 33.0 g/dL (30-55) 09/11/23 02:13 RDW 18.6 % (12.1-15.1) H 09/11/23 02:13 Plt Count 661 10^3/cmm (157-399) H 09/12/23 00:49 MPV 11.6 fL (7.4-10.4) H 09/11/23 02:13 Neut % (Auto) 39.7 % 09/11/23 02:13 Lymph % (Auto) 6.1 % 09/11/23 02:13 [place] % (Auto) 3.6 % 09/11/23 02:13 Eos % (Auto) 1.1 % 09/11/23 02:13 Baso % (Auto) 6.0 % 09/11/23 02:13 Neut # (Auto) 22.10 10^3/uL (1.8-7.7) H 09/11/23 02:13 Lymph # (Auto) 3.4 10^3/uL (0.8-4.8) 09/11/23 02:13 [place] # (Auto) 2.0 10^3/uL (0.2-0.9) H 09/11/23 02:13 Eos # (Auto) 0.6 10^3/uL (0.0-0.8) 09/11/23 02:13 Baso # (Auto) 3.3 10^3/uL (0.0-0.1) H 09/11/23 02:13 Nucleated RBC % (auto) 0.9 % 09/11/23 02:13 Total Counted 100 (0-100) 09/10/23 14:56 Atypical Lymphs % 2.0 % (0-5) 09/10/23 14:56 Absolute Neutrophils 42.7 10^3/cmm (1.4-6.5) H 09/10/23 14:56 Segmented Neutrophils 60 % 09/10/23 14:56 Abs Segm Neuts (Man) 37.1 10/cmm (1.6-7.1) H 09/10/23 14:56 Band Neutrophils 9.0 % 09/10/23 14:56 Abs Band Neuts (Man) 5.6 10^3/cmm (0.0-1.2) H 09/10/23 14:56 Absolute Lymphocytes 8.7 10^3/cmm (1.2-3.4) H 09/10/23 14:56 Lymphocytes (Manual) 12 % 09/10/23 14:56 Monocytes (Manual) 3.0 % 09/10/23 14:56 Absolute Monocytes 1.9 10^3/cmm (0.1-0.6) H 09/10/23 14:56 Eosinophils (Manual) 1 % 09/10/23 14:56 Absolute Eosinophils 0.6 10^3/cmm (0.0-0.7) 09/10/23 14:56 Basophils (Manual) 0.0 % 09/10/23 14:56 Absolute Basophils 0.0 10^3/cmm (0.0-0.2) 09/10/23 14:56 Metamyelocytes 9.0 % 09/10/23 14:56 Myelocytes 4.0 % 09/10/23 14:56 Nucleated RBCs 2.0 /100WBC (0-1) H 09/10/23 14:56 Nucleated RBCs # 0.5 /100WBC 09/11/23 02:13 Platelet Estimate Increased (Normal) H 09/10/23 14:56 Giant Platelets Trace 09/10/23 14:56 Poikilocytosis Trace 09/10/23 14:56 Anisocytosis 1+ H 09/10/23 14:56 Macrocytosis Trace 09/10/23 14:56 APTT 65.5 SECONDS (23.9-36.7) H 09/12/23 06:47 Sodium 134 mmol/L (136-145) L 09/11/23 02:13 Potassium 3.5 mmol/L (3.5-5.1) 09/11/23 02:13 Chloride 94 mmol/L (98-107) L 09/11/23 02:13 Carbon Dioxide 28 mmol/L (22-29) 09/11/23 02:13 Anion Gap 15.5 (5-19) 09/11/23 02:13 BUN 38 mg/dL (8-23) H 09/11/23 02:13 Creatinine 5.2 mg/dL (0.5-0.9) H 09/11/23 02:13 GFR Calculation Not Reportable 09/11/23 02:13 Glucose 135 mg/dL (65-115) H 09/11/23 02:13 POC Glucose 133 mg/dL (70-110) H 09/12/23 06:39 Calculated Osmolality 289 mOsm/kg (285-295) 09/11/23 02:13 Lactic Acid 1.5 mmol/L (0.5-2.2) 09/10/23 14:56 Calcium 8.7 mg/dL (8.5-10.5) 09/11/23 02:13 Magnesium 2.0 mg/dL (1.7-2.3) 09/11/23 02:13 Total Bilirubin 0.4 mg/dL (0.15-1.2) 09/11/23 02:13 AST 27 U/L (0-32) 09/11/23 02:13 ALT 13 U/L (0-33) 09/11/23 02:13 Alkaline Phosphatase 122 U/L (35-105) H 09/11/23 02:13 Creatine Kinase 195 U/L (26-192) H 09/10/23 14:56 Troponin T Baseline 720 ng/L (0-10) H* 09/10/23 14:56 Troponin T 120 Minute 718.9 ng/L (0-10) H 09/10/23 17:32 Delta Troponin T -1.1 ABS# (0-10) L 09/10/23 17:32 Troponin T Hi Sens 6Hr 854.6 ng/L (0-10) H 09/10/23 20:46 Troponin T Hi Sens 6Hr Delta 134.6 ng/L (0-12) H* 09/10/23 20:46 NT-Pro-B Natriuret Pep > 42940 pg/mL (0-450) H 09/10/23 14:56 Total Protein 5.1 g/dL (6.6-8.7) L 09/11/23 02:13 Albumin 3.1 g/dL (3.5-5.2) L 09/11/23 02:13 Globulin 2.0 g/dL (1.3-4.6) 09/11/23 02:13 Procalcitonin 0.30 ng/mL (0-0.5) 09/10/23 14:56 TSH 0.71 uIU/mL (0.27-4.20) 09/10/23 14:56 Urine Color Yellow (Yellow) 09/10/23 15:37 Urine Appearance Clear (CLEAR) 09/10/23 15:37 Urine pH 7 (5-7) 09/10/23 15:37 Ur Specific [place] 1.005 (1.005-1.030) 09/10/23 15:37 Urine Protein 3+ (Negative) H 09/10/23 15:37 Urine Glucose (UA) Norm (Normal) 09/10/23 15:37 Urine Ketones 1+ (Negative) H 09/10/23 15:37 Urine Blood 2+ (Negative) H 09/10/23 15:37 Urine Nitrate Negative (Negative) 09/10/23 15:37 Urine Bilirubin 1+ (Negative) H 09/10/23 15:37 Urine Urobilinogen Norm mg/dL (Negative) 09/10/23 15:37 Ur Leukocyte Esterase Trace (Negative) H 09/10/23 15:37 Urine RBC 0-4 /hpf (0-2) H 09/10/23 15:37 Urine WBC 10-15 /hpf (0-5) H 09/10/23 15:37 Ur Squamous Epith Cells 0-4 /hpf (0-5) H 09/10/23 15:37 Amorphous Sediment Not Reportable 09/10/23 15:37 Urine Bacteria Trace /hpf (NONE) 09/10/23 15:37 Lymphoma Panel Cancelled 09/10/23 14:56 Immunophenotype Interp Cancelled 09/10/23 14:56 C. difficile (PCR) Positive (Negative) H 09/10/23 22:58 C.difficile Tox Confrm Negative (Negative) 09/10/23 22:58 Hep Bs Antigen Non-reactive (Nonreactive) 09/11/23 00:43 Hep Bs Antibody 79.4 (11.5-1000) 09/11/23 00:43 Micro: Microbiology 09/10/23 15:10 Blood Culture - Preliminary Blood NEGATIVE TO DATE 09/10/23 14:56 Blood Culture - Preliminary Blood NEGATIVE TO DATE A&P Assessment and plan (1) Elevated troponin: Most likely related to Non ST elevation myocardial infarction. Patient is currently asymptomatic. Hemodynamically stable. The troponin T at 6 hours has a delta of 130. Heparin is discontinued at this morning. Scheduled for the cardiac catheterization this morning (2) Hypertension: The blood pressure is in the normal range. May continue on the current medications. Qualifiers: Hypertension type: essential hypertension Qualified Code(s): I10 - Essential (primary) hypertension (3) Aortic valve stenosis: Echocardiogram revealed some features of aortic valve sclerosis Qualifiers: Cardiac valve disease etiology: nonrheumatic Qualified Code(s): I35.0 - Nonrheumatic aortic (valve) stenosis (4) Atherosclerosis of coronary artery of [place] heart without angina pectoris: Patient underwent left heart catheterization with left and right coronary angiogram today. She was found to have total occlusion of the first obtuse marginal artery. High-grade lesion in the ostium of the right coronary artery. She underwent PCI of the ostial lesion of the RCA. Currently seems to be stable Qualifiers: Coronary Disease-Associated Artery/Lesion type: [place] artery Qualified Code(s): I25.10 - Atherosclerotic heart disease of [place] coronary artery without angina pectoris (5) Hypercholesteremia: May continue on the current medications (6) Congestive heart failure: Currently compensated. Continue on the current measures. 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 (9) Chronic myeloid leukemia: Management as per the heme oncology service Plan Continue on Plavix, aspirin, statin and other medications. Attestations 2 Medical Necessity Statement*: Patient requires continued hospital stay for close monitoring and further management Coding Level of Care Code 40537 Diagnoses Elevated troponin R77.8 Essential hypertension I10 Hypertension type: essential hypertension Nonrheumatic aortic valve stenosis I35.0 Cardiac valve disease etiology: nonrheumatic Atherosclerosis of [place] coronary artery of [place] heart without angina pectoris I25.10 Coronary Disease-Associated Artery/Lesion type: [place] artery Hypercholesteremia E78.00 Congestive heart failure I50.9 Heart failure chronicity: acute on chronic Heart failure type: unspecified Type 2 diabetes mellitus with diabetic polyneuropathy, with long-term current use of insulin E11.42; Z79.4 Diabetes mellitus complication detail: with polyneuropathy Diabetes mellitus complication status: with neurologic complications Diabetes mellitus senior living insulin use: with terminal gauger supervisor use Diabetes mellitus type: type 2 ESRD on hemodialysis N18.6; Z99.2 Chronic myeloid leukemia C92.10
--- NOTE | 2023-09-12 09:15 | PC.NURSE ---
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 Pt drowsy and arouses to verbal stimuli. Breathing even and non-labored on 3L NC. Pt denies pain. TR band to right radial. TR site asymptomatic. No signs of bleeding or hematoma. Placed on bedside gambling monitor. Family members updated of plan and at bedside.
--- NOTE | 2023-09-12 10:00 | PM.PN ---
Subjective Subjective: on 3L NC plan for [facility] today Medications: Reviewed: Yes Vitals/I&O/Wt Last Vital Signs Temp 99.0 F 09/11/23 19:25 Pulse 61 09/12/23 09:45 Resp 14 09/12/23 09:45 BP 86/38 09/12/23 09:45 Pulse Ox 96 09/12/23 09:45 O2 Del Method Nasal Cannula 09/12/23 09:45 O2 Flow Rate 3 09/12/23 09:45 09/11/23 09/12/23 09/12/23 22:59 06:59 14:59 Intake Total 618.767 / 1336.434 30 / 1366.434 Balance 618.767 / -1463.566 30 / -1433.566 Weight last 48 hrs Weight 91.626 kg Weight 89.5 kg Weight 91.172 kg Weight 87.679 kg Weight 87.997 kg Physical Exam Narrative: awake , alert heent S1s2 rrr per report Lungs clear per report no edema Data 09/13/23 04:09 09/13/23 04:09 Micro: Microbiology 09/10/23 15:10 Blood Culture - Preliminary Blood NEGATIVE TO DATE 09/10/23 14:56 Blood Culture - Preliminary Blood NEGATIVE TO DATE A&P Assessment and plan (1) ESRD on dialysis: Plan 1. End-stage renal disease on [facility] schedule as outpatient,s/p HD yesterday , reevaluate after [facility] and HD again today if needed 2. History of hypertension resume home medications 3. Anemia: Hemoglobin 11, monitor 4. History of CML 5. NSTEMI, management per primary and cardiology, [facility] Today Patient evaluated using audiovisual cart. Time spent 20-minutes Attestations Medical Necessity Statement*: per medicine Coding Level of Care Code Acute Code for Chg Fwd Diagnoses ESRD on dialysis N18.6; Z99.2
--- NOTE | 2023-09-12 10:17 | XACV_ITS ---
Exam Room: [facility] Ht: 163 cm Wt: 92 kg BSA: 2.07 m2 Gender: Female : 1945 Any Known Allergies: Other Exam Priority: Routine Procedure(s): Procedure Description: Diagnostic procedure Procedure Description: PCI procedure Procedure Description: Coronary IVUS Procedure Description: Drug Eluting Coronary Stent Procedure Description: PTCA Procedure Description: Miscellaneous Procedure Description: ACT Diagnostic Cath Status: Urgent Diagnostic Findings * INDICATION: NSTEMI. Patient had diagnostic coronary angiogram performed by my colleague, Dr Dorantes earlier today. She has significant proximal RCA stenosis and totally occluded OM branches. While planning to perform PCI, STEMI activation from the ER occurred and had to bring that patient emergently. We took her off the table, performed the STEMI patient's procedure and now bringing her back for the intervention. . * Left Main has no significant disease. * Circumflex has no disease. OM 1 has subtotal occlusion with collateral blood flow. OM 2 also has subtotal occlusion with collateral blood flow. * Left Anterior Descending has patent prior stent. * Proximal Right Coronary Artery: severe 70-80% stenosis, ISMAEL: 3 flow. * Coronary angiography shows right dominance. PCI Status: Urgent PCI Indication: NSTE - ACS Interventional Findings * PROCEDURE DETAIL:We first engaged left main artery with XB 3.5 guide catheter. IV heparin was administered to maintain anticoagulation. With a 0.014 run-through guidewire we tried to cross subtotally occluded OM branches. However we were not successful in crossing. As she had collaterals to aborted further attempts at revascularization of OM. We then turned our attention to RCA. JR4 guide catheter was used to engage the RCA. Dampening of pressures noted with guide engagement. 0.014 run-through guidewire was used to cross the lesion was reported in distal vessel. We sized the vessel with IVUS. We then predilated the stenosis with 2.5 x 15 mm semicompliant balloon. This was followed by placement of 2.75 x 18 mm resolute [place] drug-eluting stent. At this time final angiogram was performed that showed excellent stent expansion, ISMAEL-3 flow and no residual stenosis. Guidewire and guidecatheter were removed. Patient left the Automatic Teller Machine Servicer in a stable condition. * Proximal Right Coronary Artery: 70% stenosis treated with a AB TREK 2.50X15 RX BALLOON, and MDT R DINA 2.75X18 DOT. 0% residual stenosis, ISMAEL: 3 flow. Conclusions 1. Severe ostial to proximal RCA stenosis. S/p successful revascularization with 1 stent. Subtotally occluded OM branches with collateral blood supply. Wire could not cross OM1. We will medically manage these. 2. Proximal Right Coronary Artery was treated with a Balloon, and Drug Eluting Stent. Recommendations * Dual antiplatelet therapy with aspirin and plavix for at least 1 year. * High intensity statin therapy. * Outpatient cardiology follow up in 4 weeks. Interventional RX Recommendation: PCI w/o planned CABG Diagnostic RX Recommendation: PCI w/o planned CABG Anticoagulation: Heparin Pressures Phase:Rest AO : 134 / 55 ( 82 ) @ 11:58:00 AM 115 / 50 ( 75 ) @ 12:01:00 PM 111 / 47 ( 71 ) @ 12:08:00 PM 70 / 35 ( 47 ) @ 12:13:00 PM 105 / 57 ( 78 ) @ 12:24:00 PM Clinical Evaluation EBL: 5mL-10mL Procedural Details Pre-Procedure Time Out. Identified patient by full name and date of as verbalized by the patient/guarantor. Does the consent match the physician's order: Yes. Accurate & Complete Informed Consent: Yes. Inpatient/Outpatient History & Physical on Chart: Yes. If H&P is completed, is and addenduem needed: No; If yes, is the addendum complete: N/A. Visualize and Verify Site with Patient/Guarantor: N/A. Relevant Radiology Images available: Yes. Pre-op teaching completed and patient verbalized understanding. The risks, benefits, and alternatives of sedation and/or procedure were discussed by physician. The patient agrees to continue. Procedure started. [facility] Clinical Fraility Score: 6: Moderately Frail. Automatic Teller Machine Servicer Indications: ACS > 24 hours. Chest Pain Symptom Assessment: Atypical Angina. Correct patient, site and procedure confirmed by cath team. Current diagnosis: NSTEMI. Patient was taken off the table after her diagnostic cath because a STEMI came in through the ED. bilateral groins was prepped with chloroprep then draped in the usual sterile fashion. Oxygen started at 2liters/min via nasal canula. Physician notified. Baseline sample Acquired. HR: 64 BPM. Blood pressure cuff is on the leg. We will use the AO pressure. Physician arrived. Physician scrubbed in. Immediate Pre-Procedure Time Out. Correct Patient: Yes; Correct Procedure: Yes; Correct Site: Yes; Correct Patient Position: Yes; Correct Supplies: Yes; Dried Flammable Prep: Yes; Blood Products Available: N/A;. Lidocaine 1% infiltrated to the right groin. Ultrasound being used to obtain arterial access. Arterial access obtained with micropuncture set. 6 pakistani CLS 3.5 guide catheter was inserted over the wire. Runthrough guidewire was advanced through the guide catheter to lesion in the OM. [id number] Balloon inserted to lesion in the OM. Balloon and wire out. Guide catheter out. 6 pakistani JR 4 guide catheter was inserted over the wire. Runthrough guidewire was advanced through the guide catheter to lesion in the prox RCA. IVUS catheter inserted OTW. IVUS measurements obtained. IVUS catheter out OTW. Inflation number : 1 A AB TREK 2.50X15 RX BALLOON was prepped and advanced across the Prox RCA , then inflated to 8 TAMIE for 0:19 seconds. Inflation number: 2 The AB TREK 2.50X15 RX BALLOON was reinflated across the Prox RCA, to 8 TAMIE for 0:14 seconds. Balloon out. Results checked. Inflation Number : 3 Annika Gomez DINA 2.75X18 DOT -Lot Number# _[id number] EXP: 11/19/2025 was prepped and advanced across the Prox RCA. The stent was deployed at 12 TAMIE for 0:24 seconds. Stent balloon out over wire. Results checked. IVUS catheter inserted OTW. IVUS measurements obtained. IVUS catheter out OTW. ACT drawn. Results 256 seconds. Therapeutic limits - pre-heparin administration 90-150 seconds and monitoring heparin during a vascular procedure >250 seconds. Guide catheter out over wire. A Right femoral angiogram was performed to determine safe placement of closure device. A second Right femoral angiogram was performed to determine safe placement of closure device. Physician scrubbed out. Post Procedure: Pulses reassessed and unchanged. PERRLA. Strong, equal hand chief compliance officer bilaterally. No VTE prophylaxis required. Post-op diagnosis: Severe Ostial RCA stenosis, status post PCI placement of 1 stent. A Suture was successful obtaining hemostatsis at the Right Femoral artery insertion site. Sheath(s) sutured into position with 2-0 silk and sterile 4x4's and Op-site applied over the site. No oozing or signs and symptoms of hematoma noted. Arterial sheath flushed and connected to tranducer and pressure bag with heparinized saline. Medication's Wasted: Other = Fentanyl 87.5mcg, Versed 2 mg. Medication's Wasted: Lidocaine 1% = 10 mL. Total IV fluids: 20 mL. Complications: None. PCI Indication: NSTE. Estimated blood loss: 5mL-10mL. Responsiveness - Normal response to verbal stimuli; alert and oriented, PERRLA. Airway - Unaffected, no intervention required; spontaneous ventilation. Circulation: W/N/L, pulses unchanged. Nausea/Vomiting: No. Procedure completed. Patient transferred by bed to CPRU. Vital chart was stopped. Access Site Site: Right Femoral artery Sheath Size: 6 Fr Hemostasis Method: Suture Hemostasis Success: Successful Procedure Medications Start: 11:01 AM Stop: 11:01 AM Medication: Heparin Amount: 8000 units Route: I.V. Start: 11:05 AM Stop: 11:05 AM Medication: Fentanyl Amount: 12.5 mcg Route: I.V. Start: 11:22 AM Stop: 11:22 AM Medication: Heparin Amount: 1000 units Route: I.V. Start: 11:40 AM Stop: 11:40 AM Medication: Plavix Amount: 300 mg Route: P.O. I, the attending physician, have reviewed and verified all procedure medications. Yes, all medications given per verbal order History/Risk Factors Hypertension: Yes Dyslipidemia: No Peripheral Arterial Disease (PAD): Yes Myocardial Infarction (CA): No Obesity: No Renal Disease: Yes Tobacco Use: Never Dialysis: Current Prior Interventions PCI: No CABG: No Valve Surgery: No Report Signatures Finalized by Bill Boston MD on 09/23/2023 10:16 AM
--- NOTE | 2023-09-12 12:30 | W.PM.OPSUD ---
Surgery/Procedure H&P Update DATE OF PROCEDURE: September 12, 2023 DATE H&P PERFORMED: 09/10/23 H&P UPDATE INFORMATION: I have reviewed H&P completed within last 30 days, I have examined patient prior to procedure and Changes to prior documentation as noted here CHANGES TO PREVIOUS DOCUMENTATION: Patient had diagnostic coronary angiogram performed earlier today. She has significant proximal RCA stenosis and totally occluded OM. While planning to performPCI, STEMI activation from the ER occurred and had to bring that patient emergently. We took her off the table, performed the STEMI patient's procedure and now bringing her back for the intervention. PREOP DIAGNOSIS: NSTEMI PRIMARY INDICATION FOR PROCEDURE: NSTEMI PLANNED PROCEDURE: Operation Date: 09/12/23 10:00 Proposed Procedures p Percutaneous Coronary Intervention(Not Applicable) - Bill Boston M.D PATIENT REASSESSED PRIOR TO SEDATION, WITH NO CHANGE NOTED: Yes PHYSICAL EXAM: alert, oriented x 3, clear to auscultation bilaterally and regular rate & rhythm AIRWAY EVAL/ANESTHESIA PLAN: normal airway, ASA IV, Local Anesthesia, Risks, benefits & alternatives of sedation and/or procedure discussed and Patient agrees to continue as planned ADDITIONAL INFORMATION: Moderate sedation
[2023-09-12 12:48] LABS: Glucose Point of Care 114 mg/dL (70-110)
[2023-09-12] MEDS: clopidogrel 75 mg Tablet PO (13:09)
[2023-09-12] MEDS: vancomycin 125 mg Capsule PO ×3 (13:09→20:42)
[2023-09-12] MEDS: cyanocobalamin 1,000 mcg Tablet 1000 MCG PO (13:10)
[2023-09-12] MEDS: pantoprazole DR 40 mg Tablet PO (13:10)
--- NOTE | 2023-09-12 14:59 | PM.PN ---
Subjective Subjective: Status post angiogram this morning with stent placement to RCA. Had 1 episode of vomiting this afternoon. Tested C. difficile positive for which she is on vancomycin 125 mg p.o. 4 times daily. Medications: Reviewed: Yes Medication Review Details: Current Medications Acetaminophen (Acetaminophen 325 Mg Tablet) 650 mg PO Q6H PRN PRN Reason: Mild/Mod Pain Or Temp >/= 101 Last Admin: 09/10/23 21:23 Dose: 650 mg Albuterol/Ipratropium (Ipratropium-Albuterol 3 Ml Neb) 3 ml INHALATION Q6H PRN PRN Reason: SHORTNESS OF BREATH Aspirin (Aspirin 81 Mg Ec Tablet) 81 mg PO QAM [facility] Last Admin: 09/12/23 05:00 Dose: 81 mg Atorvastatin Calcium (Atorvastatin 40 Mg Tablet) 40 mg PO BEDTIME [facility] Last Admin: 09/11/23 20:30 Dose: 40 mg Carvedilol (Carvedilol 3.125 Mg Tablet) 3.125 mg PO BID@08,21 [facility] Last Admin: 09/11/23 20:30 Dose: 3.125 mg Clopidogrel Bisulfate (Clopidogrel 75 Mg Tablet) 75 mg PO DAILY [facility] Last Admin: 09/11/23 11:57 Dose: 75 mg Cyanocobalamin (Cyanocobalamin 1,000 Mcg Tablet) 1,000 mcg PO DAILY [facility] Last Admin: 09/11/23 11:57 Dose: 1,000 mcg Folic Acid (Folic Acid 1 Mg Tablet) 1 mg PO QAM [facility] Last Admin: 09/12/23 05:00 Dose: 1 mg Heparin Sodium (Porcine) (Heparin 5,000 Unit/Ml Inj 1 Ml) 0 unit IV PRN PRN; Protocol PRN Reason: Heparin weight-base protocol Last Admin: 09/10/23 20:10 Dose: 4,400 unit Dextrose (D5w) 500 mls @ 0 mls/hr IV ONCE PRN; Protocol PRN Reason: Adult Acute Hypoglycemia Prot Dextrose (D10w) 125 mls @ 750 mls/hr IV PRN PRN; Protocol PRN Reason: Adult Acute Hypoglycemia Nursing Protocol Dextrose (D10w) 250 mls @ 1,000 mls/hr IV PRN PRN; Protocol PRN Reason: Adult Acute Hypoglycemia Nursing Protocol Heparin Sodium/Sodium Chloride (Heparin Drip) 25,000 unit in 500 mls @ 0 mls/hr IV .Q0M [facility]; Protocol Last Admin: 09/11/23 20:42 Dose: 10.8 unit/kg/hr, 19 mls/hr Sodium Chloride (Sodium Chloride 0.9%) 1,000 mls @ 0 mls/hr IV .Q0M PRN PRN Reason: hypotension or symptomatic Albumin Human (Albumin) 12.5 gm in 50 mls @ 60 mls/hr IV PRN PRN PRN Reason: Hypotension and/or symptomatic Insulin Glargine (Insulin Glargine 100 Units/1 Ml) 15 unit SUBCUT QPM [facility] Last Admin: 09/11/23 16:56 Dose: 15 unit Insulin Human Lispro (Insulin Lispro 100 Unit/1 Ml) 0 unit SUBCUT WM&BEDTIME [facility]; Protocol Last Admin: 09/12/23 07:12 Dose: Not Given Nitroglycerin (Nitroglycerin 1 Gm/Inch Oint Pkt) 1 inch TOPICAL Q6H [facility] Last Admin: 09/12/23 02:06 Dose: 1 inch Non-Formulary Medication (Sevelamer Carbonate) 7.2 gm PO TID [facility] Last Admin: 09/11/23 20:35 Dose: Not Given Non-Formulary Medication (Nilotinib) 300 mg PO Q12H [facility] Last Admin: 09/11/23 20:35 Dose: Not Given Ondansetron HCl (Ondansetron 2 Mg/Ml Sdv 2 Ml) 4 mg IVP Q8H PRN PRN Reason: vomiting, or N/V if npo Pantoprazole Sodium (Pantoprazole Dr 40 Mg Tablet) 40 mg PO DAILY [facility] Last Admin: 09/11/23 11:57 Dose: 40 mg Sertraline HCl (Sertraline 100 Mg Tablet) 100 mg PO QAM [facility] Last Admin: 09/12/23 05:00 Dose: 100 mg Vancomycin HCl (Vancomycin 125 Mg Capsule) 125 mg PO QID [facility] Last Admin: 09/11/23 20:30 Dose: 125 mg Vitals/I&O/Wt Last Vital Signs Temp 99.0 F 09/11/23 19:25 Pulse 59 L 09/12/23 10:30 Resp 15 09/12/23 10:30 BP 85/52 09/12/23 10:30 Pulse Ox 96 09/12/23 10:30 O2 Del Method Nasal Cannula 09/12/23 10:30 O2 Flow Rate 3 09/12/23 10:30 09/11/23 09/12/23 09/12/23 22:59 06:59 14:59 Intake Total 618.767 / 1336.434 30 / 1366.434 Balance 618.767 / -1463.566 30 / -1433.566 Weight last 48 hrs Weight 91.626 kg Weight 89.5 kg Weight 91.172 kg Weight 87.679 kg Physical Exam Narrative: General: No acute distress, AO x3 HEENT: PERRLA, pupils bilaterally equal and reactive, pallors not present Chest: Normal vesicular breath sounds, no added sounds, equal good air entry bilaterally CVS: S1-S2 regular, no murmurs, no tachycardia, no gallops, no rubs Abdomen: Soft, nontender, no organomegaly, bowel sounds present Neuro: No focal deficits, no facial deformity, AO x3, power 5/5 in all limbs Data 09/12/23 00:49 09/11/23 02:13 Micro: Microbiology 09/10/23 15:10 Blood Culture - Preliminary Blood NEGATIVE TO DATE 09/10/23 14:56 Blood Culture - Preliminary Blood NEGATIVE TO DATE A&P Assessment and plan (1) Hypertension: Qualifiers: Hypertension type: essential hypertension Qualified Code(s): I10 - Essential (primary) hypertension (2) CAD (coronary artery disease): Qualifiers: Coronary Disease-Associated Artery/Lesion type: [place] artery [place] vs. transplanted heart: [place] heart Associated angina: without angina Qualified Code(s): I25.10 - Atherosclerotic heart disease of [place] coronary artery without angina pectoris (3) Diabetes: Qualifiers: Diabetes mellitus type: type 2 Diabetes mellitus half-way insulin use: with terminal gauger use Diabetes mellitus complication status: with neurologic complications Diabetes mellitus complication detail: with polyneuropathy Qualified Code(s): E11.42 - Type 2 diabetes mellitus with diabetic polyneuropathy; Z79.4 - correction (current) use of insulin (4) GERD (gastroesophageal reflux disease): Qualifiers: Esophagitis presence: esophagitis presence not specified Qualified Code(s): K21.9 - Gastro-esophageal reflux disease without esophagitis (5) ESRD on hemodialysis: (6) Chronic myeloid leukemia: (7) Bilateral leg weakness: (8) Fall: Qualifiers: Encounter type: initial encounter Qualified Code(s): W19.XXXA - Unspecified fall, initial encounter (9) ANA (obstructive sleep apnea): (10) NSTEMI (non-ST elevated myocardial infarction): (11) C. difficile diarrhea: Plan Non-STEMI Dr. Dorantes consulted No active chest pain Patient hemodynamic stable Start heparin Loaded with aspirin and Plavix Further plan will be made after echo report as per cardiology Patient has history of coronary disease with 1 stent placement in the past End-stage renal disease On dialysis for last 5 years Consulted nephro for Monday dialysis session Recurrent falls Check B12 Patient has diabetic neuropathy Rule out BPPV No sign of stroke CT head unremarkable Patient is denying syncopal events She never had any seizure related activity She drives back and forth from dialysis center on her own, she lives alone, has had multiple falls in the past few weeks Patient thinks it is related to her chemotherapeutic agent Will request PT I have asked patient to reconsider her driving risk factors Acute hypoxia Patient stating that she has diagnosis of sleep apnea but does not use CPAP She was on oxygen in the past but that has been taken off recently Currently on 2 L saturating 98% Review of records: Preserved ejection fraction with hypokinesia secondary to [place] which was diagnosed in 2019 EF 45 to 50% No active sign of heart failure Stent was placed in mid LAD she also had mild disease of right coronary artery with circumflex artery she used to follow-up with Dr. Davila CML: Recently started nilotinib Spoke with Dr. Jose E Rinaldi notified Plan for today: September 11, 2023. Plan to undergo coronary angiogram tomorrow in view of NSTEMI. Continue heparin drip for now. Continue aspirin, atorvastatin, Plavix, Coreg. Appreciate cardiology recommendations. Continue dialysis per schedule. Discussed care with on-call oncology. Discontinue nilotinib as drug may be associated with NC. Patient will need to follow-up with oncology as outpatient to determine alternate treatment regimen. No current chest pain. Plan for today September 12, 2023. Status post angiogram today. Placement of stent into RCA. Currently which she is still in place. Last vital signs reviewed, blood pressure 130/76 mmHg, heart rate 72/min. Continue aspirin, Plavix, Coreg, atorvastatin. Continue oral vancomycin 125 mg 4 times daily transition to oral fidaxomicin at time of discharge to minimize risk of recurrence. Patient reports this is first episode. Next dialysis planned for tomorrow. Anticipate discharge after dialysis if patient continues to feel well. Attestations Medical Necessity Statement*: Status post angiogram today. Plan dialysis tomorrow Coding Level of Care Code Acute Code for Chg Fwd Moderate MDM includes number and complexity of problems actively addressed during encounter, amount and/or complexity of data reviewed/ordered and described risk of complication, morbidity or mortality of management as documented Diagnoses Essential hypertension I10 Hypertension type: essential hypertension Coronary artery disease involving [place] coronary artery of [place] heart without angina pectoris I25.10 Coronary Disease-Associated Artery/Lesion type: [place] artery [place] vs. transplanted heart: [place] heart Associated angina: without angina Type 2 diabetes mellitus with diabetic polyneuropathy, with long-term current use of insulin E11.42; Z79.4 Diabetes mellitus type: type 2 Diabetes mellitus terminal gauger insulin use: with terminal gauger use Diabetes mellitus complication status: with neurologic complications Diabetes mellitus complication detail: with polyneuropathy Gastroesophageal reflux disease, esophagitis presence not specified K21.9 Esophagitis presence: esophagitis presence not specified ESRD on hemodialysis N18.6; Z99.2 Chronic myeloid leukemia C92.10 Bilateral leg weakness R29.898 Fall W19.XXXA Encounter type: initial encounter ANA (obstructive sleep apnea) G47.33 NSTEMI (non-ST elevated myocardial infarction) I21.4 C. difficile diarrhea A04.72
[2023-09-12] MEDS: ondansetron 2 mg/ML SDV 2 mL 4 MG IVP (16:00)
[2023-09-12 16:18] LABS: Partial Thromboplastin Time 44.6 SECONDS (23.9-36.7)
[2023-09-12 17:54] LABS: Glucose Point of Care 149 mg/dL (70-110)
[2023-09-12] MEDS: insulin glargine 100 units/1 mL 15 UNIT SUBCUT (18:02)
[2023-09-12] MEDS: atorvastatin 40 mg Tablet PO (20:42)
[2023-09-12] MEDS: carvedilol 3.125 mg Tablet PO (20:42)
[2023-09-12 20:48] LABS: Glucose Point of Care 134 mg/dL (70-110)
[2023-09-13] VITALS (14 sets, daily range): BP systolic 120–126; BP diastolic 48–61; PULSE 63–70; RESP 12–18; TEMP 36.8–37; O2SAT 84–100
[2023-09-13] MEDS: sertraline 100 mg Tablet PO (05:13)
[2023-09-13] MEDS: folic acid 1 mg Tablet PO (05:13)
[2023-09-13] MEDS: aspirin 81 mg EC Tablet PO (05:13)
[2023-09-13 05:34] LABS: Hematocrit 29.7 % (36-47); Mean Corpuscular HGB Conc 31.6 g/dL (30-55); Mean Corpuscular Volume 91.7 fl (85-98); Mean Platelet Volume 11.1 fL (7.4-10.4); Platelet Count 738 10^3/cmm (157-399); Red Blood Count 3.24 10^6/uL (3.85-5.65); Red Cell Distribution Width 19.6 % (12.1-15.1)
[2023-09-13 06:05] LABS: Alanine Aminotransferase 8 U/L (0-33); Albumin Level 3.2 g/dL (3.5-5.2); Alkaline Phosphatase 109 U/L (35-105); Anion Gap 16.3 (5-19); Aspartate Amino Transferase 8 U/L (0-32); Blood Urea Nitrogen 35 mg/dL (8-23); Calcium 8.6 mg/dL (8.5-10.5); Carbon Dioxide 26 mmol/L (22-29); Chloride 100 mmol/L (98-107); Globulin 2.4 g/dL (1.3-4.6); Glucose 70 mg/dL (65-115); Osmolality Calculated 292 mOsm/kg (285-295); Potassium 4.3 mmol/L (3.5-5.1); Sodium 138 mmol/L (136-145); Total Bilirubin 0.3 mg/dL (0.15-1.2); Total Protein 5.6 g/dL (6.6-8.7)
[2023-09-13 06:14] LABS: Creatinine Clr Calc Pharmacy 9.9363
[2023-09-13 06:23] LABS: Absolute Segmented Neutrophil 31.8 10/cmm (1.6-7.1); Band Neutrophils Absolute 2.9 10^3/cmm (0.0-1.2); Eosinophils 0 %; Lymphocytes 7 %; Segmented Neutrophils 55 %; Slide Review Slide Review Perform; Total Cells Counted 100 (0-100)
[2023-09-13 06:24] LABS: Absolute Neutrophil 34.7 10^3/cmm (1.4-6.5); Anisocytosis 1+; Giant Platelets 2+; Hypersegmented Polys 1+; Platelet Estimate Increased (Normal); Poikilocytosis 2+
[2023-09-13 06:25] LABS: White Blood Count 57.88 10^3/uL (3.29-11.43)
--- NOTE | 2023-09-13 08:05 | PC.SOCIAL ---
Pg 2 IMM Explained to pt Pg 2 IMM. No questions voiced. Provided pt a copy. Initialed, dated, & timed a copy & placed in chart.
[2023-09-13] MEDS: cyanocobalamin 1,000 mcg Tablet 1000 MCG PO (08:14)
[2023-09-13] MEDS: vancomycin 125 mg Capsule PO ×3 (08:14→21:45)
[2023-09-13] MEDS: pantoprazole DR 40 mg Tablet PO (08:14)
[2023-09-13] MEDS: clopidogrel 75 mg Tablet PO (08:14)
--- NOTE | 2023-09-13 11:10 | P.PN_ITS ---
Subjective 2 Subjective: feels better Medications: Reviewed: Yes Vitals/I&O/Wt Last Vital Signs Temp 98.6 F 09/12/23 22:21 Pulse 65 09/13/23 08:39 Resp 12 09/13/23 08:39 BP 121/56 09/13/23 08:39 Pulse Ox 93 09/13/23 08:39 O2 Del Method Nasal Cannula 09/13/23 03:06 O2 Flow Rate 2 09/13/23 00:00 09/12/23 09/13/23 09/13/23 22:59 06:59 14:59 Intake Total 453.7 / 483.7 Balance 453.7 / 483.7 Weight last 48 hrs Weight 93.894 kg Weight 91.626 kg Weight 89.5 kg Physical Exam 2 Narrative: awake , alert heent S1s2 rrr per report Lungs clear per report no edema Data 09/13/23 04:09 09/13/23 04:09 A&P Assessment and plan (1) ESRD on dialysis: Plan 1. End-stage renal disease on MWF schedule as outpatient, hd today 2. History of hypertension resume home medications 3. Anemia: Hemoglobin 9.4 monitor 4. History of CML 5. NSTEMI, management per primary and cardiology, s/p LHC and RCA stent Patient evaluated using audiovisual cart. Time spent 20-minutes Attestations 2 Medical Necessity Statement*: per jennifer Coding Level of Care Code Acute Code for Chg Fwd Diagnoses ESRD on dialysis N18.6; Z99.2
[2023-09-13 11:32] LABS: Glucose Point of Care 91 mg/dL (70-110)
--- NOTE | 2023-09-13 13:43 | PM.PN ---
Subjective Subjective: No chest pain today. Awaiting dialysis, however unlikely to happen before suppertime today. Patient reports feeling weak overall. Likely deconditioned from multiple comorbidities and hospital stay. Medications: Reviewed: Yes Medication Review Details: Current Medications Acetaminophen (Acetaminophen 325 Mg Tablet) 650 mg PO Q6H PRN PRN Reason: Mild/Mod Pain Or Temp >/= 101 Last Admin: 09/10/23 21:23 Dose: 650 mg Albuterol/Ipratropium (Ipratropium-Albuterol 3 Ml Neb) 3 ml INHALATION Q6H PRN PRN Reason: SHORTNESS OF BREATH Aspirin (Aspirin 81 Mg Ec Tablet) 81 mg PO QAM [facility] Last Admin: 09/12/23 05:00 Dose: 81 mg Atorvastatin Calcium (Atorvastatin 40 Mg Tablet) 40 mg PO BEDTIME [facility] Last Admin: 09/11/23 20:30 Dose: 40 mg Carvedilol (Carvedilol 3.125 Mg Tablet) 3.125 mg PO BID@, [facility] Last Admin: 09/11/23 20:30 Dose: 3.125 mg Clopidogrel Bisulfate (Clopidogrel 75 Mg Tablet) 75 mg PO DAILY [facility] Last Admin: 09/11/23 11:57 Dose: 75 mg Cyanocobalamin (Cyanocobalamin 1,000 Mcg Tablet) 1,000 mcg PO DAILY [facility] Last Admin: 09/11/23 11:57 Dose: 1,000 mcg Folic Acid (Folic Acid 1 Mg Tablet) [facility] [place] Admin: 09/12/23 05:00 Dose: 1 mg Heparin Sodium (Porcine) (Heparin 5,000 Unit/Ml Inj 1 Ml) 0 unit IV PRN PRN; Protocol PRN Reason: Heparin weight-base protocol Last Admin: 09/10/23 20:10 Dose: 4,400 unit Dextrose (D5w) 500 mls @ 0 mls/hr IV ONCE PRN; Protocol PRN Reason: Adult Acute Hypoglycemia Prot Dextrose (D10w) 125 mls @ 750 mls/hr IV PRN PRN; Protocol PRN Reason: Adult Acute Hypoglycemia Nursing Protocol Dextrose (D10w) 250 mls @ 1,000 mls/hr IV PRN PRN; Protocol PRN Reason: Adult Acute Hypoglycemia Nursing Protocol Heparin Sodium/Sodium Chloride (Heparin Drip) 25,000 unit in 500 mls @ 0 mls/hr IV .Q0M [facility]; Protocol Last Admin: 09/11/23 20:42 Dose: 10.8 unit/kg/hr, 19 mls/hr Sodium Chloride (Sodium Chloride 0.9%) 1,000 mls @ 0 mls/hr IV .Q0M PRN PRN Reason: hypotension or symptomatic Albumin Human (Albumin) 12.5 gm in 50 mls @ 60 mls/hr IV PRN PRN PRN Reason: Hypotension and/or symptomatic Insulin Glargine (Insulin Glargine 100 Units/1 Ml) 15 unit SUBCUT QPM [facility] Last Admin: 09/11/23 16:56 Dose: 15 unit Insulin Human Lispro (Insulin Lispro 100 Unit/1 Ml) 0 unit SUBCUT WM&BEDTIME [facility]; Protocol Last Admin: 09/12/23 07:12 Dose: Not Given Nitroglycerin (Nitroglycerin 1 Gm/Inch Oint Pkt) 1 inch TOPICAL Q6H [facility] Last Admin: 09/12/23 02:06 Dose: 1 inch Non-Formulary Medication (Sevelamer Carbonate) 7.2 gm PO TID [facility] Last Admin: 09/11/23 20:35 Dose: Not Given Non-Formulary Medication (Nilotinib) 300 mg PO Q12H [facility] Last Admin: 09/11/23 20:35 Dose: Not Given Ondansetron HCl (Ondansetron 2 Mg/Ml Sdv 2 Ml) 4 mg IVP Q8H PRN PRN Reason: vomiting, or N/V if npo Pantoprazole Sodium (Pantoprazole Dr 40 Mg Tablet) 40 mg PO DAILY [facility] Last Admin: 09/11/23 11:57 Dose: 40 mg Sertraline HCl (Sertraline 100 Mg Tablet) 100 mg PO QAM [facility] Last Admin: 09/12/23 05:00 Dose: 100 mg Vancomycin HCl (Vancomycin 125 Mg Capsule) 125 mg PO QID [facility] Last Admin: 09/11/23 20:30 Dose: 125 mg Vitals/I&O/Wt Last Vital Signs Temp 98.6 F 09/12/23 22:21 Pulse 70 09/13/23 12:49 Resp 18 09/13/23 12:49 BP 124/61 09/13/23 12:49 Pulse Ox 84 L 09/13/23 13:05 O2 Del Method Nasal Cannula 09/13/23 03:06 O2 Flow Rate 2 09/13/23 13:05 09/12/23 09/13/23 09/13/23 22:59 06:59 14:59 Intake Total 453.7 / 483.7 Balance 453.7 / 483.7 Weight last 48 hrs Weight 93.894 kg Weight 91.626 kg Physical Exam Narrative: General: No acute distress, AO x3 HEENT: PERRLA, pupils bilaterally equal and reactive, pallors + Chest: Normal vesicular breath sounds, no added sounds, equal good air entry bilaterally CVS: S1-S2 regular, no murmurs, no tachycardia, no gallops, no rubs Abdomen: Soft, nontender, no organomegaly, bowel sounds present Neuro: No focal deficits, no facial deformity, AO x3, power 5/5 in all limbs Data 09/13/23 04:09 09/13/23 04:09 A&P Assessment and plan (1) Hypertension: Qualifiers: Hypertension type: essential hypertension Qualified Code(s): I10 - Essential (primary) hypertension (2) CAD (coronary artery disease): Qualifiers: Coronary Disease-Associated Artery/Lesion type: [place] artery [place] vs. transplanted heart: [place] heart Associated angina: without angina Qualified Code(s): I25.10 - Atherosclerotic heart disease of [place] coronary artery without angina pectoris (3) Diabetes: Qualifiers: Diabetes mellitus type: type 2 Diabetes mellitus assisted insulin use: with terminal make up operator use Diabetes mellitus complication status: with neurologic complications Diabetes mellitus complication detail: with polyneuropathy Qualified Code(s): E11.42 - Type 2 diabetes mellitus with diabetic polyneuropathy; Z79.4 - supervisor intermediates (current) use of insulin (4) GERD (gastroesophageal reflux disease): Qualifiers: Esophagitis presence: esophagitis presence not specified Qualified Code(s): K21.9 - Gastro-esophageal reflux disease without esophagitis (5) ESRD on hemodialysis: (6) Chronic myeloid leukemia: (7) Bilateral leg weakness: (8) Fall: Qualifiers: Encounter type: initial encounter Qualified Code(s): W19.XXXA - Unspecified fall, initial encounter (9) ANA (obstructive sleep apnea): (10) NSTEMI (non-ST elevated myocardial infarction): (11) C. difficile diarrhea: Plan Non-STEMI Dr. Dorantes consulted No active chest pain Patient hemodynamic stable Start heparin Loaded with aspirin and Plavix Further plan will be made after echo report as per cardiology Patient has history of coronary disease with 1 stent placement in the past End-stage renal disease On dialysis for last 5 years Consulted nephro for Monday dialysis session Recurrent falls Check B12 Patient has diabetic neuropathy Rule out BPPV No sign of stroke CT head unremarkable Patient is denying syncopal events She never had any seizure related activity She drives back and forth from dialysis center on her own, she lives alone, has had multiple falls in the past few weeks Patient thinks it is related to her chemotherapeutic agent Will request PT I have asked patient to reconsider her driving risk factors Acute hypoxia Patient stating that she has diagnosis of sleep apnea but does not use CPAP She was on oxygen in the past but that has been taken off recently Currently on 2 L saturating 98% Review of records: Preserved ejection fraction with hypokinesia secondary to [place] which was diagnosed in 2019 EF 45 to 50% No active sign of heart failure Stent was placed in mid LAD she also had mild disease of right coronary artery with circumflex artery she used to follow-up with Dr. Davila CML: Recently started nilotinib Spoke with Dr. Jose E Rinaldi notified Plan for today: September 11, 2023. Plan to undergo coronary angiogram tomorrow in view of NSTEMI. Continue heparin drip for now. Continue aspirin, atorvastatin, Plavix, Coreg. Appreciate cardiology recommendations. Continue dialysis per schedule. Discussed care with on-call oncology. Discontinue nilotinib as drug may be associated with [place]. Patient will need to follow-up with oncology as outpatient to determine alternate treatment regimen. No current chest pain. Plan for today September 13, 2023. Status post stent placement into RCA yesterday. Doing well currently in this regard. No chest pain. Hemodynamically remained stable. Plan dialysis today, however given timing constraints this is unlikely to happen until after suppertime. Patient will likely not be able to discharge due to the late hour. In addition she reports increasing generalized weakness and deconditioning related to her multiple comorbidities and hospital stay. PT eval has been ordered to assess for safety and ability to perform ADLs upon returning home. Patient reports previous level of independence, being able to drive herself, not being on any oxygen, being able to perform her daily activities by herself prior to current admission. Attestations Medical Necessity Statement*: Plan hemodialysis today. Therapy assessments, assess for safety to return home for 2 prior level of independent functioning. Coding Level of Care Code Acute Code for Chg Fwd Diagnoses Essential hypertension I10 Hypertension type: essential hypertension Coronary artery disease involving [place] coronary artery of [place] heart without angina pectoris I25.10 Coronary Disease-Associated Artery/Lesion type: [place] artery [place] vs. transplanted heart: [place] heart Associated angina: without angina Type 2 diabetes mellitus with diabetic polyneuropathy, with long-term current use of insulin E11.42; Z79.4 Diabetes mellitus type: type 2 Diabetes mellitus assisted insulin use: with assisted use Diabetes mellitus complication status: with neurologic complications Diabetes mellitus complication detail: with polyneuropathy Gastroesophageal reflux disease, esophagitis presence not specified K21.9 Esophagitis presence: esophagitis presence not specified ESRD on hemodialysis N18.6; Z99.2 Chronic myeloid leukemia C92.10 Bilateral leg weakness R29.898 Fall W19.XXXA Encounter type: initial encounter ANA (obstructive sleep apnea) G47.33 NSTEMI (non-ST elevated myocardial infarction) I21.4 C. difficile diarrhea A04.72
[2023-09-13 14:05] LABS: Leukemia Profile (BBPL) See Report
--- NOTE | 2023-09-13 15:54 | PM.PN ---
Subjective Subjective: The patient is complaining of some weakness/lethargy. No chest pain or shortness of breath. Vitals are stable. Remains afebrile. Medications: Medication Review Details: Current Medications Acetaminophen (Acetaminophen 325 Mg Tablet) 650 mg PO Q6H PRN PRN Reason: Mild/Mod Pain Or Temp >/= 101 Last Admin: 09/10/23 21:23 Dose: 650 mg Albuterol/Ipratropium (Ipratropium-Albuterol 3 Ml Neb) 3 ml INHALATION Q6H PRN PRN Reason: SHORTNESS OF BREATH Aspirin (Aspirin 81 Mg Ec Tablet) 81 mg PO QAM [facility] Last Admin: 09/13/23 05:13 Dose: 81 mg Atorvastatin Calcium (Atorvastatin 40 Mg Tablet) 40 mg PO BEDTIME [facility] Last Admin: 09/12/23 20:42 Dose: 40 mg Carvedilol (Carvedilol 3.125 Mg Tablet) 3.125 mg PO BID@08,21 [facility] Last Admin: 09/13/23 08:05 Dose: Not Given Clopidogrel Bisulfate (Clopidogrel 75 Mg Tablet) 75 mg PO DAILY [facility] Last Admin: 09/13/23 08:14 Dose: 75 mg Cyanocobalamin (Cyanocobalamin 1,000 Mcg Tablet) 1,000 mcg PO DAILY [facility] Last Admin: 09/13/23 08:14 Dose: 1,000 mcg Folic Acid (Folic Acid 1 Mg Tablet) [facility] [place] Last Admin: 09/13/23 05:13 Dose: 1 mg Dextrose (D5w) 500 mls @ 0 mls/hr IV ONCE PRN; Protocol PRN Reason: Adult Acute Hypoglycemia Prot Dextrose (D10w) 125 mls @ 750 mls/hr IV PRN PRN; Protocol PRN Reason: Adult Acute Hypoglycemia Nursing Protocol Dextrose (D10w) 250 mls @ 1,000 mls/hr IV PRN PRN; Protocol PRN Reason: Adult Acute Hypoglycemia Nursing Protocol Sodium Chloride (Sodium Chloride 0.9%) 1,000 mls @ 0 mls/hr IV .Q0M PRN PRN Reason: hypotension or symptomatic Albumin Human (Albumin) 12.5 gm in 50 mls @ 60 mls/hr IV PRN PRN PRN Reason: Hypotension and/or symptomatic Insulin Glargine (Insulin Glargine 100 Units/1 Ml) 15 unit SUBCUT QPM [facility] Last Admin: 09/12/23 18:02 Dose: 15 unit Insulin Human Lispro (Insulin Lispro 100 Unit/1 Ml) 0 unit SUBCUT WM&BEDTIME [facility]; Protocol Last Admin: 09/13/23 11:54 Dose: Not Given Metoclopramide HCl (Metoclopramide 5 Mg/Ml Sdv 2 Ml) 5 mg IVP Q6H PRN PRN Reason: NAUSEA AND VOMITING Non-Formulary Medication (Sevelamer Carbonate) 7.2 gm PO TID [facility] Last Admin: 09/13/23 14:16 Dose: Not Given Ondansetron HCl (Ondansetron 2 Mg/Ml Sdv 2 Ml) 4 mg IVP Q8H PRN PRN Reason: vomiting, or N/V if npo Last Admin: 09/12/23 16:00 Dose: 4 mg Pantoprazole Sodium (Pantoprazole Dr 40 Mg Tablet) 40 mg PO DAILY [facility] Last Admin: 09/13/23 08:14 Dose: 40 mg Sertraline HCl (Sertraline 100 Mg Tablet) 100 mg PO QAM [facility] Last Admin: 09/13/23 05:13 Dose: 100 mg Vancomycin HCl (Vancomycin 125 Mg Capsule) 125 mg PO QID [facility] Last Admin: 09/13/23 13:45 Dose: 125 mg Vitals/I&O/Wt Last Vital Signs Temp 98.6 F 09/12/23 22:21 Pulse 70 09/13/23 12:49 Resp 18 09/13/23 12:49 BP 124/61 09/13/23 12:49 Pulse Ox 84 L 09/13/23 13:05 O2 Del Method Nasal Cannula 09/13/23 03:06 O2 Flow Rate 2 09/13/23 13:05 09/13/23 09/13/23 09/13/23 06:59 14:59 22:59 Intake Total 30 / 30 Balance 30 / Weight last 48 hrs Weight 207 lb Weight 202 lb Physical Exam Narrative: GENERAL: The patient is alert and oriented times three. Not in any acute distress. HEENT: No significant pallor, icterus or lymphadenopathy.Oral cavity: There are no mucous membrane lesions. NECK: Trachea appears to be central. No masses noted. No JVD or thyromegaly appreciated. RESPIRATORY: Chest is symmetrical. No intercostals muscle retraction or any accessory muscle activation. There is no chest wall tenderness. Breath sounds are heard bilaterally. No rales or rhonchi heard. No evidence of any consolidation. BREASTS: Deferred. HEART: The heart sounds are normal. No S3 or S4. Ejection Systolic murmur grade 3 or 6 in the aortic area. No diastolic murmurs.. No pericardial rub ABDOMEN: No vessel pulsations or distention. No tenderness. No organomegaly appreciated. Bowel sounds are normally heard. : Deferred. RECTAL: Deferred. LYMPHATIC: No lymphadenopathy noted in the neck. EXTREMITIES: The right radial arterial puncture site and the femoral arterial bundle site appeared to have no hematoma bleeding MUSCULOSKELETAL: No acute joint deformities or swelling SKIN: There are no significant rashes or ecchymosis NEUROPSYCHIATRIC: The patient is alert and oriented x3. Appears to be in a good mood. No tremors or rigidity noted. Data 09/13/23 04:09 09/13/23 04:09 Other Labs: Laboratory Last Values WBC 57.88 10^3/uL (3.29-11.43) H* 09/13/23 04:09 RBC 3.24 10^6/uL (3.85-5.65) L 09/13/23 04:09 Hgb 9.40 g/dL (11.27-16.99) L 09/13/23 04:09 Hct 29.7 % (36-47) L 09/13/23 04:09 MCV 91.7 fl (85-98) 09/13/23 04:09 MCH 29.0 pg (27-33) 09/13/23 04:09 MCHC 31.6 g/dL (30-55) 09/13/23 04:09 RDW 19.6 % (12.1-15.1) H 09/13/23 04:09 Plt Count 738 10^3/cmm (157-399) H 09/13/23 04:09 MPV 11.1 fL (7.4-10.4) H 09/13/23 04:09 Neut % (Auto) 39.7 % 09/11/23 02:13 Lymph % (Auto) Not Reportable 09/13/23 04:09 [place] % (Auto) Not Reportable 09/13/23 04:09 Eos % (Auto) 1.1 % 09/11/23 02:13 Baso % (Auto) 6.0 % 09/11/23 02:13 Neut # (Auto) 22.10 10^3/uL (1.8-7.7) H 09/11/23 02:13 Lymph # (Auto) Not Reportable 09/13/23 04:09 [place] # (Auto) Not Reportable 09/13/23 04:09 Eos # (Auto) 0.6 10^3/uL (0.0-0.8) 09/11/23 02:13 Baso # (Auto) 3.3 10^3/uL (0.0-0.1) H 09/11/23 02:13 Nucleated RBC % (auto) 0.9 % 09/11/23 02:13 Total Counted 100 (0-100) 09/13/23 04:09 Atypical Lymphs % Not Reportable 09/13/23 04:09 Absolute Neutrophils 34.7 10^3/cmm (1.4-6.5) H 09/13/23 04:09 Segmented Neutrophils 55 % 09/13/23 04:09 Abs Segm Neuts (Man) 31.8 10/cmm (1.6-7.1) H 09/13/23 04:09 Band Neutrophils 5.0 % 09/13/23 04:09 Abs Band Neuts (Man) 2.9 10^3/cmm (0.0-1.2) H 09/13/23 04:09 Absolute Lymphocytes 8.7 10^3/cmm (1.2-3.4) H 09/10/23 14:56 Lymphocytes (Manual) 7 % 09/13/23 04:09 Monocytes (Manual) 0.0 % 09/13/23 04:09 Absolute Monocytes 0.0 10^3/cmm (0.1-0.6) L 09/13/23 04:09 Eosinophils (Manual) 0 % 09/13/23 04:09 Absolute Eosinophils 0.0 10^3/cmm (0.0-0.7) 09/13/23 04:09 Basophils (Manual) 0.0 % 09/13/23 04:09 Absolute Basophils 0.0 10^3/cmm (0.0-0.2) 09/13/23 04:09 Metamyelocytes 9.0 % 09/10/23 14:56 Myelocytes 27.0 % 09/13/23 04:09 Promyelocytes 5.0 % 09/13/23 04:09 Nucleated RBCs 1.0 /100WBC (0-1) 09/13/23 04:09 Nucleated RBCs # 0.5 /100WBC 09/11/23 02:13 Hypersegmented Polys 1+ 09/13/23 04:09 Platelet Estimate Increased (Normal) H 09/13/23 04:09 Giant Platelets 2+ H 09/13/23 04:09 Poikilocytosis 2+ H 09/13/23 04:09 Anisocytosis 1+ H 09/13/23 04:09 Macrocytosis Trace 09/10/23 14:56 APTT 44.6 SECONDS (23.9-36.7) H 09/12/23 15:44 Sodium 138 mmol/L (136-145) 09/13/23 04:09 Potassium 4.3 mmol/L (3.5-5.1) 09/13/23 04:09 Chloride 100 mmol/L (98-107) 09/13/23 04:09 Carbon Dioxide 26 mmol/L (22-29) 09/13/23 04:09 Anion Gap 16.3 (5-19) 09/13/23 04:09 BUN 35 mg/dL (8-23) H 09/13/23 04:09 Creatinine 5.2 mg/dL (0.5-0.9) H 09/13/23 04:09 GFR Calculation Not Reportable 09/13/23 04:09 Glucose 70 mg/dL (65-115) 09/13/23 04:09 POC Glucose 91 mg/dL (70-110) 09/13/23 11:28 Calculated Osmolality 292 mOsm/kg (285-295) 09/13/23 04:09 Lactic Acid 1.5 mmol/L (0.5-2.2) 09/10/23 14:56 Calcium 8.6 mg/dL (8.5-10.5) 09/13/23 04:09 Magnesium 2.0 mg/dL (1.7-2.3) 09/11/23 02:13 Total Bilirubin 0.3 mg/dL (0.15-1.2) 09/13/23 04:09 AST 8 U/L (0-32) 09/13/23 04:09 ALT 8 U/L (0-33) 09/13/23 04:09 Alkaline Phosphatase 109 U/L (35-105) H 09/13/23 04:09 Creatine Kinase 195 U/L (26-192) H 09/10/23 14:56 Troponin T Baseline 720 ng/L (0-10) H* 09/10/23 14:56 Troponin T 120 Minute 718.9 ng/L (0-10) H 09/10/23 17:32 Delta Troponin T -1.1 ABS# (0-10) L 09/10/23 17:32 Troponin T Hi Sens 6Hr 854.6 ng/L (0-10) H 09/10/23 20:46 Troponin T Hi Sens 6Hr Delta 134.6 ng/L (0-12) H* 09/10/23 20:46 NT-Pro-B Natriuret Pep > 43935 pg/mL (0-450) H 09/10/23 14:56 Total Protein 5.6 g/dL (6.6-8.7) L 09/13/23 04:09 Albumin 3.2 g/dL (3.5-5.2) L 09/13/23 04:09 Globulin 2.4 g/dL (1.3-4.6) 09/13/23 04:09 Procalcitonin 0.30 ng/mL (0-0.5) 09/10/23 14:56 TSH 0.71 uIU/mL (0.27-4.20) 09/10/23 14:56 Urine Color Yellow (Yellow) 09/10/23 15:37 Urine Appearance Clear (CLEAR) 09/10/23 15:37 Urine pH 7 (5-7) 09/10/23 15:37 Ur Specific [place] 1.005 (1.005-1.030) 09/10/23 15:37 Urine Protein 3+ (Negative) H 09/10/23 15:37 Urine Glucose (UA) Norm (Normal) 09/10/23 15:37 Urine Ketones 1+ (Negative) H 09/10/23 15:37 Urine Blood 2+ (Negative) H 09/10/23 15:37 Urine Nitrate Negative (Negative) 09/10/23 15:37 Urine Bilirubin 1+ (Negative) H 09/10/23 15:37 Urine Urobilinogen Norm mg/dL (Negative) 09/10/23 15:37 Ur Leukocyte Esterase Trace (Negative) H 09/10/23 15:37 Urine RBC 0-4 /hpf (0-2) H 09/10/23 15:37 Urine WBC 10-15 /hpf (0-5) H 09/10/23 15:37 Ur Squamous Epith Cells 0-4 /hpf (0-5) H 09/10/23 15:37 Amorphous Sediment Not Reportable 09/10/23 15:37 Urine Bacteria Trace /hpf (NONE) 09/10/23 15:37 Lymphoma Panel Cancelled 09/10/23 14:56 Immunophenotype Interp Cancelled 09/10/23 14:56 Immunophenotype Interp See report 09/10/23 14:56 C. difficile (PCR) Positive (Negative) H 09/10/23 22:58 C.difficile Tox Confrm Negative (Negative) 09/10/23 22:58 Hep Bs Antigen Non-reactive (Nonreactive) 09/11/23 00:43 Hep Bs Antibody 79.4 (11.5-1000) 09/11/23 00:43 A&P Assessment and plan (1) Atherosclerosis of coronary artery of [place] heart without angina pectoris: Patient underwent left heart catheterization with left and right coronary angiogram yesterday she was found to have total occlusion of the first obtuse marginal artery. High-grade lesion in the ostium of the right coronary artery. She underwent PCI of the ostial lesion of the RCA. Seems to be doing okay with no chest pain. She feels tired and weak. This could be multifactorial. Qualifiers: Coronary Disease-Associated Artery/Lesion type: [place] artery Qualified Code(s): I25.10 - Atherosclerotic heart disease of [place] coronary artery without angina pectoris (2) NSTEMI (non-ST elevated myocardial infarction): Currently seems to be stable. Will continue on the current management (3) Hypertension: The blood pressure is in the normal range. May continue on the current medications. Qualifiers: Hypertension type: essential hypertension Qualified Code(s): I10 - Essential (primary) hypertension (4) Hypercholesteremia: May continue on the current medications (5) Congestive heart failure: Currently compensated. Continue on the current measures. Qualifiers: Heart failure chronicity: acute on chronic Heart failure type: unspecified Qualified Code(s): I50.9 - Heart failure, unspecified (6) Diabetes: Management as per the primary Qualifiers: Diabetes mellitus type: type 2 Diabetes mellitus senior living insulin use: with senior living use Diabetes mellitus complication status: with neurologic complications Diabetes mellitus complication detail: with polyneuropathy Qualified Code(s): E11.42 - Type 2 diabetes mellitus with diabetic polyneuropathy; Z79.4 - joint terminal attack controller (current) use of insulin (7) ESRD on hemodialysis: Scheduled for hemodialysis today (8) Chronic myeloid leukemia: Management as per the heme oncology service Plan Continue on Plavix, aspirin, statin and other medications. Attestations Medical Necessity Statement*: Disposition as per the primary Coding Level of Care Code 19172 Diagnoses Atherosclerosis of [place] coronary artery of [place] heart without angina pectoris I25.10 Coronary Disease-Associated Artery/Lesion type: [place] artery NSTEMI (non-ST elevated myocardial infarction) I21.4 Essential hypertension I10 Hypertension type: essential hypertension Hypercholesteremia E78.00 Congestive heart failure I50.9 Heart failure chronicity: acute on chronic Heart failure type: unspecified Type 2 diabetes mellitus with diabetic polyneuropathy, with long-term current use of insulin E11.42; Z79.4 Diabetes mellitus type: type 2 Diabetes mellitus senior living insulin use: with senior living use Diabetes mellitus complication status: with neurologic complications Diabetes mellitus complication detail: with polyneuropathy ESRD on hemodialysis N18.6; Z99.2 Chronic myeloid leukemia C92.10
[2023-09-13 17:25] LABS: Glucose Point of Care 170 mg/dL (70-110)
[2023-09-13] MEDS: insulin lispro 100 unit/1 mL SUBCUT (17:44)
[2023-09-13] MEDS: insulin glargine 100 units/1 mL 15 UNIT SUBCUT (17:44)
[2023-09-13] MEDS: epoetin alfa 1000 Unit/0.05 mL (ESRD) 20000 UNIT IVP (20:57)
[2023-09-13] MEDS: carvedilol 3.125 mg Tablet PO (21:45)
[2023-09-13] MEDS: atorvastatin 40 mg Tablet PO (21:45)
[2023-09-13 21:51] LABS: Glucose Point of Care 133 mg/dL (70-110)
--- NOTE | 2023-09-13 22:09 | PC.NURSE ---
pt came from dialysis with Radha via bed, pt got back at 2144
[2023-09-14] VITALS (11 sets, daily range): BP systolic 116–132; BP diastolic 52–64; PULSE 63–78; RESP 14–21; TEMP 36.8–37; O2SAT 95–99
[2023-09-14] MEDS: acetaminophen 325 mg Tablet 650 MG PO (04:23)
[2023-09-14] MEDS: aspirin 81 mg EC Tablet PO (05:05)
[2023-09-14] MEDS: folic acid 1 mg Tablet PO (05:05)
[2023-09-14] MEDS: sertraline 100 mg Tablet PO (05:05)
[2023-09-14 05:24] LABS: Basophils # 3.1 10^3/uL (0.0-0.1); Basophils % 5.1 %; Eosinophils # 0.5 10^3/uL (0.0-0.8); Eosinophils % 0.8 %; Hematocrit 29.3 % (36-47); Lymphocytes # 2.3 10^3/uL (0.8-4.8); Lymphocytes % 3.9 %; Mean Corpuscular HGB Conc 32.4 g/dL (30-55); Mean Corpuscular Hemoglobin 29.1 pg (27-33); Mean Corpuscular Volume 89.9 fl (85-98); Mean Platelet Volume 11.1 fL (7.4-10.4); Monocytes # 1.1 10^3/uL (0.2-0.9); Monocytes % 1.9 %; Neutrophils # 26.32 10^3/uL (1.8-7.7); Neutrophils % 43.9 %; Nucleated Red Blood Cells # 0.2 /100WBC; Nucleated Red Blood Cells % 0.4 %; Platelet Count 750 10^3/cmm (157-399); Red Blood Count 3.26 10^6/uL (3.85-5.65); Red Cell Distribution Width 19.6 % (12.1-15.1)
[2023-09-14 05:59] LABS: Alanine Aminotransferase 9 U/L (0-33); Albumin Level 3.2 g/dL (3.5-5.2); Alkaline Phosphatase 121 U/L (35-105); Anion Gap 15.9 (5-19); Aspartate Amino Transferase 12 U/L (0-32); Blood Urea Nitrogen 23 mg/dL (8-23); Calcium 8.4 mg/dL (8.5-10.5); Carbon Dioxide 27 mmol/L (22-29); Chloride 94 mmol/L (98-107); Globulin 2.5 g/dL (1.3-4.6); Glucose 139 mg/dL (65-115); Osmolality Calculated 282 mOsm/kg (285-295); Potassium 3.9 mmol/L (3.5-5.1); Slide Review Slide Review Perform; Sodium 133 mmol/L (136-145); Total Bilirubin 0.2 mg/dL (0.15-1.2); Total Protein 5.7 g/dL (6.6-8.7)
[2023-09-14 06:01] LABS: White Blood Count 60.02 10^3/uL (3.29-11.43)
[2023-09-14 06:02] LABS: Glucose Point of Care 251 mg/dL (70-110)
[2023-09-14] MEDS: vancomycin 125 mg Capsule PO ×4 (08:32→21:38)
[2023-09-14] MEDS: clopidogrel 75 mg Tablet PO (08:32)
[2023-09-14] MEDS: cyanocobalamin 1,000 mcg Tablet 1000 MCG PO (08:32)
[2023-09-14] MEDS: carvedilol 3.125 mg Tablet PO ×2 (08:32→21:38)
[2023-09-14] MEDS: insulin lispro 100 unit/1 mL SUBCUT ×2 (08:32→17:15)
[2023-09-14] MEDS: pantoprazole DR 40 mg Tablet PO (08:32)
[2023-09-14 12:26] LABS: Glucose Point of Care 100 mg/dL (70-110)
[2023-09-14] MEDS: metoclopramide 5 mg/mL SDV 2 mL IVP (13:58)
--- NOTE | 2023-09-14 16:30 | P.PN_ITS ---
Subjective 2 Subjective: No acute interim events. She was evaluated by physical therapy yesterday, noted to have significant deconditioning. Recommended to continue physical therapy. Patient lives by herself, high fall risk, pending appropriate disposition planning. No chest pain Medications: Reviewed: Yes Medication Review Details: Current Medications Acetaminophen (Acetaminophen 325 Mg Tablet) 650 mg PO Q6H PRN PRN Reason: Mild/Mod Pain Or Temp >/= 101 Last Admin: 09/10/23 21:23 Dose: 650 mg Albuterol/Ipratropium (Ipratropium-Albuterol 3 Ml Neb) 3 ml INHALATION Q6H PRN PRN Reason: SHORTNESS OF BREATH Aspirin (Aspirin 81 Mg Ec Tablet) 81 mg PO QAM [facility] Last Admin: 09/13/23 05:13 Dose: 81 mg Atorvastatin Calcium (Atorvastatin 40 Mg Tablet) 40 mg PO BEDTIME [facility] Last Admin: 09/12/23 20:42 Dose: 40 mg Carvedilol (Carvedilol 3.125 Mg Tablet) 3.125 mg PO BID@ [facility] Last Admin: 09/13/23 08:05 Dose: Not Given Clopidogrel Bisulfate (Clopidogrel 75 Mg Tablet) 75 mg PO DAILY [facility] Last Admin: 09/13/23 08:14 Dose: 75 mg Cyanocobalamin (Cyanocobalamin 1,000 Mcg Tablet) 1,000 mcg PO DAILY [facility] Last Admin: 09/13/23 08:14 Dose: 1,000 mcg Folic Acid (Folic Acid 1 Mg Tablet) 1 mg PO QAM [facility] Last Admin: 09/13/23 05:13 Dose: 1 mg Dextrose (D5w) 500 mls @ 0 mls/hr IV ONCE PRN; Protocol PRN Reason: Adult Acute Hypoglycemia Prot Dextrose (D10w) 125 mls @ 750 mls/hr IV PRN PRN; Protocol PRN Reason: Adult Acute Hypoglycemia Nursing Protocol Dextrose (D10w) 250 mls @ 1,000 mls/hr IV PRN PRN; Protocol PRN Reason: Adult Acute Hypoglycemia Nursing Protocol Sodium Chloride (Sodium Chloride 0.9%) 1,000 mls @ 0 mls/hr IV .Q0M PRN PRN Reason: hypotension or symptomatic Albumin Human (Albumin) 12.5 gm in 50 mls @ 60 mls/hr IV PRN PRN PRN Reason: Hypotension and/or symptomatic Insulin Glargine (Insulin Glargine 100 Units/1 Ml) 15 unit SUBCUT QPM [facility] Last Admin: 09/12/23 18:02 Dose: 15 unit Insulin Human Lispro (Insulin Lispro 100 Unit/1 Ml) 0 unit SUBCUT WM&BEDTIME [facility]; Protocol Last Admin: 09/13/23 11:54 Dose: Not Given Metoclopramide HCl (Metoclopramide 5 Mg/Ml Sdv 2 Ml) 5 mg IVP Q6H PRN PRN Reason: NAUSEA AND VOMITING Non-Formulary Medication (Sevelamer Carbonate) 7.2 gm PO TID [facility] Last Admin: 09/13/23 14:16 Dose: Not Given Ondansetron HCl (Ondansetron 2 Mg/Ml Sdv 2 Ml) 4 mg IVP Q8H PRN PRN Reason: vomiting, or N/V if npo Last Admin: 09/12/23 16:00 Dose: 4 mg Pantoprazole Sodium (Pantoprazole Dr 40 Mg Tablet) 40 mg PO DAILY [facility] Last Admin: 09/13/23 08:14 Dose: 40 mg Sertraline HCl (Sertraline 100 Mg Tablet) 100 mg PO QAM [facility] Last Admin: 09/13/23 05:13 Dose: 100 mg Vancomycin HCl (Vancomycin 125 Mg Capsule) 125 mg PO QID [facility] Last Admin: 09/13/23 13:45 Dose: 125 mg Vitals/I&O/Wt Last Vital Signs Temp 98.5 F 09/14/23 11:33 Pulse 78 09/14/23 16:21 Resp 14 09/14/23 16:21 BP 132/52 09/14/23 16:21 Pulse Ox 96 09/14/23 16:21 O2 Del Method Nasal Cannula 09/14/23 13:35 O2 Flow Rate 2 09/14/23 13:35 09/14/23 09/14/23 09/14/23 06:59 14:59 22:59 Intake Total 120 / 930 360 / 360 Output Total 0 / 0 Balance 120 / -1870 360 / 360 Weight last 48 hrs Weight 92.533 kg Weight 92.3 kg Weight 93.894 kg Physical Exam 2 Narrative: General: No acute distress, AO x3 HEENT: PERRLA, pupils bilaterally equal and reactive, pallors + Chest: Normal vesicular breath sounds, no added sounds, equal good air entry bilaterally CVS: S1-S2 regular, no murmurs, no tachycardia, no gallops, no rubs Abdomen: Soft, nontender, no organomegaly, bowel sounds present Neuro: No focal deficits, no facial deformity, AO x3, power 5/5 in all limbs Data 09/14/23 04:19 09/14/23 04:19 A&P Assessment and plan (1) Hypertension: Qualifiers: Hypertension type: essential hypertension Qualified Code(s): I10 - Essential (primary) hypertension (2) CAD (coronary artery disease): Qualifiers: Coronary Disease-Associated Artery/Lesion type: [place] artery [place] vs. transplanted heart: wales heart Associated angina: without angina Qualified Code(s): I25.10 - Atherosclerotic heart disease of wales coronary artery without angina pectoris (3) Diabetes: Qualifiers: Diabetes mellitus type: type 2 Diabetes mellitus senior living insulin use: with senior living use Diabetes mellitus complication status: with neurologic complications Diabetes mellitus complication detail: with polyneuropathy Qualified Code(s): E11.42 - Type 2 diabetes mellitus with diabetic polyneuropathy; Z79.4 - alf (current) use of insulin (4) GERD (gastroesophageal reflux disease): Qualifiers: Esophagitis presence: esophagitis presence not specified Qualified Code(s): K21.9 - Gastro-esophageal reflux disease without esophagitis (5) ESRD on hemodialysis: (6) Chronic myeloid leukemia: (7) Bilateral leg weakness: (8) Fall: Qualifiers: Encounter type: initial encounter Qualified Code(s): W19.XXXA - Unspecified fall, initial encounter (9) ANA (obstructive sleep apnea): (10) NSTEMI (non-ST elevated myocardial infarction): (11) C. difficile diarrhea: Plan Non-STEMI Dr. Dorantes consulted No active chest pain Patient hemodynamic stable Start heparin Loaded with aspirin and Plavix Further plan will be made after echo report as per cardiology Patient has history of coronary disease with 1 stent placement in the past End-stage renal disease On dialysis for last 5 years Consulted nephro for Monday dialysis session Recurrent falls Check B12 Patient has diabetic neuropathy Rule out BPPV No sign of stroke CT head unremarkable Patient is denying syncopal events She never had any seizure related activity She drives back and forth from dialysis center on her own, she lives alone, has had multiple falls in the past few weeks Patient thinks it is related to her chemotherapeutic agent Will request PT I have asked patient to reconsider her driving risk factors Acute hypoxia Patient stating that she has diagnosis of sleep apnea but does not use CPAP She was on oxygen in the past but that has been taken off recently Currently on 2 L saturating 98% Review of records: Preserved ejection fraction with hypokinesia secondary to Tak[place]ubo which was diagnosed in 2019 EF 45 to 50% No active sign of heart failure Stent was placed in mid LAD she also had mild disease of right coronary artery with circumflex artery she used to follow-up with Dr. Davila CML: Recently started nilotinib Spoke with Dr. Jose E Rinaldi notified Plan for today: September 11, 2023. Plan to undergo coronary angiogram tomorrow in view of NSTEMI. Continue heparin drip for now. Continue aspirin, atorvastatin, Plavix, Coreg. Appreciate cardiology recommendations. Continue dialysis per schedule. Discussed care with on-call oncology. Discontinue nilotinib as drug may be associated with ME. Patient will need to follow-up with oncology as outpatient to determine alternate treatment regimen. No current chest pain. Plan for today September 13, 2023. Status post stent placement into RCA yesterday. Doing well currently in this regard. No chest pain. Hemodynamically remained stable. Plan dialysis today, however given timing constraints this is unlikely to happen until after suppertime. Patient will likely not be able to discharge due to the late hour. In addition she reports increasing generalized weakness and deconditioning related to her multiple comorbidities and hospital stay. PT eval has been ordered to assess for safety and ability to perform ADLs upon returning home. Patient reports previous level of independence, being able to drive herself, not being on any oxygen, being able to perform her daily activities by herself prior to current admission. Plan for today September 14, 2023. No acute interim events. Patient significantly deconditioned, would likely benefit from continued rehab prior to transitioning back to home for independent living. Ongoing appropriate disposition planning.continue po vancomycin Attestations 2 Medical Necessity Statement*: approptiate disposiion planning Coding Level of Care Code Acute Code for Chg Fwd Diagnoses Essential hypertension I10 Hypertension type: essential hypertension Coronary artery disease involving wales coronary artery of wales heart without angina pectoris I25.10 Coronary Disease-Associated Artery/Lesion type: [place] artery [place] vs. transplanted heart: wales heart Associated angina: without angina Type 2 diabetes mellitus with diabetic polyneuropathy, with long-term current use of insulin E11.42; Z79.4 Diabetes mellitus type: type 2 Diabetes mellitus senior living insulin use: with senior living use Diabetes mellitus complication status: with neurologic complications Diabetes mellitus complication detail: with polyneuropathy Gastroesophageal reflux disease, esophagitis presence not specified K21.9 Esophagitis presence: esophagitis presence not specified ESRD on hemodialysis N18.6; Z99.2 Chronic myeloid leukemia C92.10 Bilateral leg weakness R29.898 Fall W19.XXXA Encounter type: initial encounter ANA (obstructive sleep apnea) G47.33 NSTEMI (non-ST elevated myocardial infarction) I21.4 C. difficile diarrhea A04.72
--- NOTE | 2023-09-14 16:53 | P.PN_ITS ---
Subjective 2 Subjective: no new complaints Medications: Reviewed: Yes Vitals/I&O/Wt Last Vital Signs Temp 98.5 F 09/14/23 11:33 Pulse 78 09/14/23 16:21 Resp 14 09/14/23 16:21 BP 132/52 09/14/23 16:21 Pulse Ox 96 09/14/23 16:21 O2 Del Method Nasal Cannula 09/14/23 13:35 O2 Flow Rate 2 09/14/23 13:35 09/14/23 09/14/23 09/14/23 06:59 14:59 22:59 Intake Total 120 / 930 360 / 360 Output Total 0 / 0 Balance 120 / -1870 360 / 360 Weight last 48 hrs Weight 92.533 kg Weight 92.3 kg Weight 93.894 kg Physical Exam 2 Narrative: awake , alert heent S1s2 rrr per report Lungs clear per report no edema Data 09/14/23 04:19 09/14/23 04:19 A&P Assessment and plan (1) ESRD on dialysis: Plan 1. End-stage renal disease on MWF schedule as outpatient, HD tomorrow 2. History of hypertension resume home medications 3. Anemia: Hemoglobin 9.4 monitor 4. History of CML 5. NSTEMI, management per primary and cardiology, s/p LHC and RCA stent Patient evaluated using audiovisual cart. Time spent 20-minutes Attestations 2 Medical Necessity Statement*: per jennifer Coding Level of Care Code Acute Code for Chg Fwd Diagnoses ESRD on dialysis N18.6; Z99.2
[2023-09-14 17:03] LABS: Glucose Point of Care 163 mg/dL (70-110)
[2023-09-14] MEDS: insulin glargine 100 units/1 mL 15 UNIT SUBCUT (17:15)
--- NOTE | 2023-09-14 19:33 | PM.PN ---
Subjective Subjective: Patient is feeling better. She is ambulating with assistance. No chest pain. No fever or chills. Medications: Medication Review Details: Current Medications Acetaminophen (Acetaminophen 325 Mg Tablet) 650 mg PO Q6H PRN PRN Reason: Mild/Mod Pain Or Temp >/= 101 Last Admin: 09/14/23 04:23 Dose: 650 mg Albuterol/Ipratropium (Ipratropium-Albuterol 3 Ml Neb) 3 ml INHALATION Q6H PRN PRN Reason: SHORTNESS OF BREATH Aspirin (Aspirin 81 Mg Ec Tablet) 81 mg PO QAM [facility] Last Admin: 09/14/23 05:05 Dose: 81 mg Atorvastatin Calcium (Atorvastatin 40 Mg Tablet) 40 mg PO BEDTIME [facility] Last Admin: 09/13/23 21:45 Dose: 40 mg Carvedilol (Carvedilol 3.125 Mg Tablet) 3.125 mg PO BID@ [facility] Last Admin: 09/14/23 08:32 Dose: 3.125 mg Clopidogrel Bisulfate (Clopidogrel 75 Mg Tablet) 75 mg PO DAILY [facility] Last Admin: 09/14/23 08:32 Dose: 75 mg Cyanocobalamin (Cyanocobalamin 1,000 Mcg Tablet) 1,000 mcg PO DAILY [facility] Last Admin: 09/14/23 08:32 Dose: 1,000 mcg Folic Acid (Folic Acid 1 Mg Tablet) [facility] [place] Admin: 09/14/23 05:05 Dose: 1 mg Dextrose (D5w) 500 mls @ 0 mls/hr IV ONCE PRN; Protocol PRN Reason: Adult Acute Hypoglycemia Prot Dextrose (D10w) 125 mls @ 750 mls/hr IV PRN PRN; Protocol PRN Reason: Adult Acute Hypoglycemia Nursing Protocol Dextrose (D10w) 250 mls @ 1,000 mls/hr IV PRN PRN; Protocol PRN Reason: Adult Acute Hypoglycemia Nursing Protocol Sodium Chloride (Sodium Chloride 0.9%) 1,000 mls @ 0 mls/hr IV .Q0M PRN PRN Reason: hypotension or symptomatic Albumin Human (Albumin) 12.5 gm in 50 mls @ 60 mls/hr IV PRN PRN PRN Reason: Hypotension and/or symptomatic Insulin Glargine (Insulin Glargine 100 Units/1 Ml) 15 unit SUBCUT QPM [facility] Last Admin: 09/14/23 17:15 Dose: 15 unit Insulin Human Lispro (Insulin Lispro 100 Unit/1 Ml) 0 unit SUBCUT WM&BEDTIME [facility]; Protocol Last Admin: 09/14/23 17:15 Dose: 2 unit Metoclopramide HCl (Metoclopramide 5 Mg/Ml Sdv 2 Ml) 5 mg IVP Q6H PRN PRN Reason: NAUSEA AND VOMITING Last Admin: 09/14/23 13:58 Dose: 5 mg Non-Formulary Medication (Sevelamer Carbonate) 7.2 gm PO TID [facility] Last Admin: 09/14/23 14:14 Dose: Not Given Ondansetron HCl (Ondansetron 2 Mg/Ml Sdv 2 Ml) 4 mg IVP Q8H PRN PRN Reason: vomiting, or N/V if npo Last Admin: 09/12/23 16:00 Dose: 4 mg Pantoprazole Sodium (Pantoprazole Dr 40 Mg Tablet) 40 mg PO DAILY [facility] Last Admin: 09/14/23 08:32 Dose: 40 mg Sertraline HCl (Sertraline 100 Mg Tablet) 100 mg PO QAM [facility] Last Admin: 09/14/23 05:05 Dose: 100 mg Vancomycin HCl (Vancomycin 125 Mg Capsule) 125 mg PO QID [facility] Last Admin: 09/14/23 17:14 Dose: 125 mg Vitals/I&O/Wt Last Vital Signs Temp 98.5 F 09/14/23 11:33 Pulse 78 09/14/23 16:21 Resp 14 09/14/23 16:21 BP 132/52 09/14/23 16:21 Pulse Ox 96 09/14/23 16:21 O2 Del Method Nasal Cannula 09/14/23 13:35 O2 Flow Rate 2 09/14/23 13:35 09/14/23 09/14/23 09/14/23 06:59 14:59 22:59 Intake Total 120 / 930 360 / 360 Output Total 0 / 0 Balance 120 / -1870 360 / 360 Weight last 48 hrs Weight 204 lb Weight 203 lb 7.787 oz Weight 207 lb Physical Exam Narrative: GENERAL: The patient is alert and oriented times three. Not in any acute distress. HEENT: No significant pallor, icterus or lymphadenopathy.Oral cavity: There are no mucous membrane lesions. NECK: Trachea appears to be central. No masses noted. No JVD or thyromegaly appreciated. RESPIRATORY: Chest is symmetrical. No intercostals muscle retraction or any accessory muscle activation. There is no chest wall tenderness. Breath sounds are heard bilaterally. No rales or rhonchi heard. No evidence of any consolidation. BREASTS: Deferred. HEART: The heart sounds are normal. No S3 or S4. Ejection Systolic murmur grade 3 or 6 in the aortic area. No diastolic murmurs.. No pericardial rub ABDOMEN: No vessel pulsations or distention. No tenderness. No organomegaly appreciated. Bowel sounds are normally heard. : Deferred. RECTAL: Deferred. LYMPHATIC: No lymphadenopathy noted in the neck. EXTREMITIES: The right radial arterial puncture site and the femoral arterial bundle site appeared to have no hematoma bleeding MUSCULOSKELETAL: No acute joint deformities or swelling SKIN: There are no significant rashes or ecchymosis NEUROPSYCHIATRIC: The patient is alert and oriented x3. Appears to be in a good mood. No tremors or rigidity noted. Data 09/14/23 04:19 09/14/23 04:19 Other Labs: Current Medications Acetaminophen (Acetaminophen 325 Mg Tablet) 650 mg PO Q6H PRN PRN Reason: Mild/Mod Pain Or Temp >/= 101 Last Admin: 09/14/23 04:23 Dose: 650 mg Albuterol/Ipratropium (Ipratropium-Albuterol 3 Ml Neb) 3 ml INHALATION Q6H PRN PRN Reason: SHORTNESS OF BREATH Aspirin (Aspirin 81 Mg Ec Tablet) 81 mg PO QAM [facility] Last Admin: 09/14/23 05:05 Dose: 81 mg Atorvastatin Calcium (Atorvastatin 40 Mg Tablet) 40 mg PO BEDTIME [facility] Last Admin: 09/13/23 21:45 Dose: 40 mg Carvedilol (Carvedilol 3.125 Mg Tablet) 3.125 mg PO BID@ [facility] Last Admin: 09/14/23 08:32 Dose: 3.125 mg Clopidogrel Bisulfate (Clopidogrel 75 Mg Tablet) 75 mg PO DAILY [facility] Last Admin: 09/14/23 08:32 Dose: 75 mg Cyanocobalamin (Cyanocobalamin 1,000 Mcg Tablet) 1,000 mcg PO DAILY [facility] Last Admin: 09/14/23 08:32 Dose: 1,000 mcg Folic Acid (Folic Acid 1 Mg Tablet) 1 mg PO QAM [facility] Last Admin: 09/14/23 05:05 Dose: 1 mg Dextrose (D5w) 500 mls @ 0 mls/hr IV ONCE PRN; Protocol PRN Reason: Adult Acute Hypoglycemia Prot Dextrose (D10w) 125 mls @ 750 mls/hr IV PRN PRN; Protocol PRN Reason: Adult Acute Hypoglycemia Nursing Protocol Dextrose (D10w) 250 mls @ 1,000 mls/hr IV PRN PRN; Protocol PRN Reason: Adult Acute Hypoglycemia Nursing Protocol Sodium Chloride (Sodium Chloride 0.9%) 1,000 mls @ 0 mls/hr IV .Q0M PRN PRN Reason: hypotension or symptomatic Albumin Human (Albumin) 12.5 gm in 50 mls @ 60 mls/hr IV PRN PRN PRN Reason: Hypotension and/or symptomatic Insulin Glargine (Insulin Glargine 100 Units/1 Ml) 15 unit SUBCUT QPM [facility] Last Admin: 09/14/23 17:15 Dose: 15 unit Insulin Human Lispro (Insulin Lispro 100 Unit/1 Ml) 0 unit SUBCUT WM&BEDTIME [facility]; Protocol Last Admin: 09/14/23 17:15 Dose: 2 unit Metoclopramide HCl (Metoclopramide 5 Mg/Ml Sdv 2 Ml) 5 mg IVP Q6H PRN PRN Reason: NAUSEA AND VOMITING Last Admin: 09/14/23 13:58 Dose: 5 mg Non-Formulary Medication (Sevelamer Carbonate) 7.2 gm PO TID [facility] Last Admin: 09/14/23 14:14 Dose: Not Given Ondansetron HCl (Ondansetron 2 Mg/Ml Sdv 2 Ml) 4 mg IVP Q8H PRN PRN Reason: vomiting, or N/V if npo Last Admin: 09/12/23 16:00 Dose: 4 mg Pantoprazole Sodium (Pantoprazole Dr 40 Mg Tablet) 40 mg PO DAILY [facility] Last Admin: 09/14/23 08:32 Dose: 40 mg Sertraline HCl (Sertraline 100 Mg Tablet) 100 mg PO QAM [facility] Last Admin: 09/14/23 05:05 Dose: 100 mg Vancomycin HCl (Vancomycin 125 Mg Capsule) 125 mg PO QID [facility] Last Admin: 09/14/23 17:14 Dose: 125 mg A&P Assessment and plan (1) Atherosclerosis of coronary artery of [place] heart without angina pectoris: Patient underwent left heart catheterization with left and right coronary angiogram yesterday she was found to have total occlusion of the first obtuse marginal artery. High-grade lesion in the ostium of the right coronary artery. She underwent PCI of the ostial lesion of the RCA. Seems to be doing okay with no chest pain. She feels tired and weak. This could be multifactorial. Qualifiers: Coronary Disease-Associated Artery/Lesion type: [place] artery Qualified Code(s): I25.10 - Atherosclerotic heart disease of [place] coronary artery without angina pectoris (2) Hypertension: The blood pressure is in the normal range. May continue on the current medications. Qualifiers: Hypertension type: essential hypertension Qualified Code(s): I10 - Essential (primary) hypertension (3) Congestive heart failure: Currently compensated. Continue on the current measures. Qualifiers: Heart failure chronicity: acute on chronic Heart failure type: unspecified Qualified Code(s): I50.9 - Heart failure, unspecified (4) Hypercholesteremia: May continue on the current medications (5) Venous insufficiency (chronic) (peripheral): Conservative measures were advised. (6) Heart failure with preserved ejection fraction: Patient currently has no evidence of any decompensated heart failure. The symptoms are stable. Compliance to medication is appropriate. Advised to continue on the current medications for the time being. In the event of developing any unusual shortness of breath or any new symptoms, advised to contact our office Qualifiers: Heart failure chronicity: unspecified Qualified Code(s): I50.30 - Unspecified diastolic (congestive) heart failure (7) Aortic valve stenosis: Since the patient has no specific symptoms of valve dysfunction, advised to continue on the current measures. The stenosis is mild. Will have a follow-up evaluation as scheduled. Qualifiers: Cardiac valve disease etiology: nonrheumatic Qualified Code(s): I35.0 - Nonrheumatic aortic (valve) stenosis (8) NSTEMI (non-ST elevated myocardial infarction): Currently seems to be stable. 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 Since the patient overall cardiovascular status seems to be stable, I may sign off at this point. Feel free to contact me if there are any further questions Attestations Medical Necessity Statement*: Patient requires continued hospital stay for close monitoring and further management Coding Level of Care Code 80897 Diagnoses Atherosclerosis of [place] coronary artery of [place] heart without angina pectoris I25.10 Coronary Disease-Associated Artery/Lesion type: [place] artery Essential hypertension I10 Hypertension type: essential hypertension Congestive heart failure I50.9 Heart failure chronicity: acute on chronic Heart failure type: unspecified Hypercholesteremia E78.00 Venous insufficiency (chronic) (peripheral) I87.2 Heart failure with preserved ejection fraction, unspecified HF chronicity I50.30 Heart failure chronicity: unspecified Nonrheumatic aortic valve stenosis I35.0 Cardiac valve disease etiology: nonrheumatic NSTEMI (non-ST elevated myocardial infarction) I21.4 Type 2 diabetes mellitus with diabetic polyneuropathy, with long-term current use of insulin E11.42; Z79.4 Diabetes mellitus type: type 2 Diabetes mellitus nursing home insulin use: with termite 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
[2023-09-14 21:22] LABS: Glucose Point of Care 134 mg/dL (70-110)
[2023-09-14] MEDS: atorvastatin 40 mg Tablet PO (21:38)
[2023-09-15] VITALS (10 sets, daily range): BP systolic 122–151; BP diastolic 58–86; PULSE 63–74; RESP 15–21; TEMP 36.7–37.2; O2SAT 94–98
[2023-09-15] MEDS: folic acid 1 mg Tablet PO (05:37)
[2023-09-15] MEDS: sertraline 100 mg Tablet PO (05:37)
[2023-09-15] MEDS: aspirin 81 mg EC Tablet PO (05:37)
[2023-09-15 06:25] LABS: Glucose Point of Care 116 mg/dL (70-110)
[2023-09-15 07:17] LABS: Basophils % 5.1 %; Eosinophils # 1.1 10^3/uL (0.0-0.8); Eosinophils % 1.9 %; Hematocrit 29.2 % (36-47); Lymphocytes # 2.8 10^3/uL (0.8-4.8); Lymphocytes % 4.8 %; Mean Corpuscular HGB Conc 32.9 g/dL (30-55); Mean Corpuscular Hemoglobin 29.4 pg (27-33); Mean Corpuscular Volume 89.3 fl (85-98); Mean Platelet Volume 10.2 fL (7.4-10.4); Monocytes # 1.1 10^3/uL (0.2-0.9); Monocytes % 1.9 %; Neutrophils # 26.33 10^3/uL (1.8-7.7); Neutrophils % 44.6 %; Nucleated Red Blood Cells # 0.5 /100WBC; Nucleated Red Blood Cells % 0.8 %; Platelet Count 736 10^3/cmm (157-399); Red Blood Count 3.27 10^6/uL (3.85-5.65); Red Cell Distribution Width 19.1 % (12.1-15.1)
[2023-09-15 07:41] LABS: Anion Gap 17.4 (5-19); Blood Urea Nitrogen 30 mg/dL (8-23); Calcium 8.4 mg/dL (8.5-10.5); Carbon Dioxide 25 mmol/L (22-29); Chloride 95 mmol/L (98-107); Creatinine Clr Calc Pharmacy 9.1333; Glucose 95 mg/dL (65-115); Osmolality Calculated 282 mOsm/kg (285-295); Potassium 4.4 mmol/L (3.5-5.1); Sodium 133 mmol/L (136-145)
[2023-09-15 08:05] LABS: White Blood Count 59.06 10^3/uL (3.29-11.43)
[2023-09-15 08:10] LABS: Slide Review Slide Review Perform
[2023-09-15] MEDS: pantoprazole DR 40 mg Tablet PO (09:16)
[2023-09-15] MEDS: cyanocobalamin 1,000 mcg Tablet 1000 MCG PO (09:17)
[2023-09-15] MEDS: vancomycin 125 mg Capsule PO ×2 (09:17→13:19)
[2023-09-15] MEDS: clopidogrel 75 mg Tablet PO (09:17)
[2023-09-15] MEDS: carvedilol 3.125 mg Tablet PO (09:21)
--- NOTE | 2023-09-15 10:08 | PC.SOCIAL ---
IMM Update pg 2 of IMM updated and reviewed w/ patient. Copy provided and copy dated, initialed and placed in chart.
[2023-09-15 10:44] LABS: Glucose Point of Care 177 mg/dL (70-110)
[2023-09-15] MEDS: insulin lispro 100 unit/1 mL SUBCUT (11:53)
--- NOTE | 2023-09-15 11:59 | P.PN_ITS ---
Subjective 2 Subjective: seen during dialysis, feeling better Vitals/I&O/Wt Last Vital Signs Temp 98.2 F 09/15/23 11:58 Pulse 66 09/15/23 11:58 Resp 21 H 09/15/23 11:58 BP 131/58 09/15/23 11:58 Pulse Ox 98 09/15/23 11:58 O2 Del Method Room Air 09/15/23 11:58 O2 Flow Rate 2 09/15/23 10:07 09/14/23 09/15/23 09/15/23 22:59 06:59 14:59 Intake Total 240 / 600 200 / 800 240 / 240 Output Total 0 / 0 Balance 240 / 600 200 / 800 240 / 240 Weight last 48 hrs Weight 92.941 kg Weight 92.533 kg Weight 92.3 kg Physical Exam 2 Narrative: alert, NAD Extremity: NARRATIVE EXTREMITY EXAM: LUE AVF no cannulation issues, no signs of infection Data 09/15/23 07:08 09/15/23 07:08 Other data: seen via telemedicine with assistance of RN at bedside A&P Assessment and plan (1) ESRD on dialysis: Plan 1. End-stage renal disease on MWF. HD today 2500 ml UF. Next HD Monday 2. Hypertension continue current medications 3. Anemia: Hemoglobin 9.4 stable, epogen iron at HD 4. Elevated WBC, History of CML 5. NSTEMI, management per primary and cardiology, s/p LHC and RCA stent Attestations 2 Medical Necessity Statement*: per primary service Time Spent in Patient Care: 16 - 35 minutes Coding Level of Care Code Acute Code for Chg Fwd Diagnoses ESRD on dialysis N18.6; Z99.2
[2023-09-15 12:45] LABS: SARS Covid-2 Antigen negative (Negative)
--- NOTE | 2023-09-15 14:45 | PM.DCS ---
Discharge Providers Date of Admission: 09/10/23 16:40 Date of Discharge: September 15, 2023 Attending Provider at Admission: Antonette Adan MD Attending Provider at Discharge: Kim Granados MD Primary Care Provider: Juancho Loyd MD Diagnoses at Discharge Discharge Diagnosis (1) ESRD on dialysis: Status: Inactive (2) C. difficile diarrhea: Status: Acute (3) NSTEMI (non-ST elevated myocardial infarction): Status: Acute (4) Chronic myeloid leukemia: Status: Acute Reason for Visit Reason for Visit: BACK PAIN S/P FALL Hospital Course Hospital Course Iris Rockwell is a 77 year old female with a history of atherosclerotic heart disease, status post PCI of the left artery descending artery in 2020, end-stage renal disease, on hemodialysis is admitted to hospital through the emergency room where she presented with a fall. She was found to have a markedly elevated troponins. Echo showed Normal LV size with a slightly diminished ejection fraction of around 50%. Moderate diffuse hypokinesia of the inferior and inferolateral wall segments. She underwent angiogram on 09/11 with stent placement to RCA. She tested positive for C diff for which she was started on Po vancomycin 125mg po QID. She had recently started chemotherapy with nilotinib, which has been discontinued at the time of discharge due to association with cardiac side effects. Follow-up appointment with oncology to discuss alternative regimens as appropriate. She also reported recurrent falls at home. She was evaluated by physical therapy was found to to be deconditioned, likely to benefit from skilled therapy to build endurance and strength to obtain previous level of independence. In her current state she is unlikely to be able to perform her ADLs upon returning home as she lives alone. She received dialysis per schedule without complications. She will resume dialysis Monday as she did prior to admission. Physical Exam Narrative: General: No acute distress, AO x3 HEENT: PERRLA, pupils bilaterally equal and reactive, pallors not present Chest: Normal vesicular breath sounds, no added sounds, equal good air entry bilaterally CVS: S1-S2 regular, no murmurs, no tachycardia, no gallops, no rubs Abdomen: Soft, nontender, no organomegaly, bowel sounds present Neuro: No focal deficits, no facial deformity, AO x3, power 5/5 in all limbs Discharge Data Studies Completed and Pending Completed Studies During Hospitalization Category Date Time Status CT cervical spin wo con* [id number] Stat Cat Scan 09/10/23 14:[address] chest abdomen pelvis [[place] [id number] Cat Scan 09/10/23 14:19 Completed ] Stat CT head wo con* [id number] Stat Cat Scan 09/10/23 14:19 Completed LASTING ROOM SUPERVISOR request for service Routine Exams 09/12/23 07:00 Completed CV. echo complete* [id number] Routine Ultrasound 09/11/23 08:00 Completed Pending at discharge Category Date Time Status LASTING ROOM SUPERVISOR request for service Routine Exams 09/12/23 10:17 Taken Blood Culture Stat Lab 09/10/23 15:10 Results Radiology Impressions Cervical Spine CT 09/10/23 14:19 IMPRESSION: No posttraumatic changes in the cervical spine. COMMENTS: Consistent with the [employer]'s Incidental Findings Committee white paper (J Am Kalyan Radiol 2015): In patients aged 35 years and older with an incidental thyroid nodule equal to or greater than 1.[address], MRI or extrathyroidal US, further evaluation with dedicated thyroid US is recommended for patients with normal life expectancy and without comorbidities. For smaller nodules without suspicious features, no further evaluation or follow up is recommended. Chest/Abdomen/Pelvis CT 09/10/23 14:19 IMPRESSION: 1. No evidence of acute traumatic injury to the chest. 2. Multiple prominent and mildly enlarged mediastinal nodes, possibly reactive or secondary to lymphovascular congestion. Consider correlation with clinical and laboratory findings to exclude a lymphoproliferative process. Fabricio spread of disease would be difficult to exclude in the proper clinical setting. IMPRESSION: 1. No evidence of acute traumatic injury to the abdomen or pelvis within limitations of a noncontrast exam. 2. Few prominent and mildly enlarged upper abdominal nodes. Head CT 09/10/23 14:19 IMPRESSION: No intracranial posttraumatic changes. Laboratory Results WBC 59.06 10^3/uL (3.29-11.43) H* 09/15/23 07:08 RBC 3.27 10^6/uL (3.85-5.65) L 09/15/23 07:08 Hgb 9.60 g/dL (11.27-16.99) L 09/15/23 07:08 Hct 29.2 % (36-47) L 09/15/23 07:08 MCV 89.3 fl (85-98) 09/15/23 07:08 MCH 29.4 pg (27-33) 09/15/23 07:08 MCHC 32.9 g/dL (30-55) 09/15/23 07:08 RDW 19.1 % (12.1-15.1) H 09/15/23 07:08 Plt Count 736 10^3/cmm (157-399) H 09/15/23 07:08 MPV 10.2 fL (7.4-10.4) 09/15/23 07:08 Neut % (Auto) 44.6 % 09/15/23 07:08 Lymph % (Auto) 4.8 % 09/15/23 07:08 Vance % (Auto) 1.9 % 09/15/23 07:08 Eos % (Auto) 1.9 % 09/15/23 07:08 Baso % (Auto) 5.1 % 09/15/23 07:08 Neut # (Auto) 26.33 10^3/uL (1.8-7.7) H 09/15/23 07:08 Lymph # (Auto) 2.8 10^3/uL (0.8-4.8) 09/15/23 07:08 Vance # (Auto) 1.1 10^3/uL (0.2-0.9) H 09/15/23 07:08 Eos # (Auto) 1.1 10^3/uL (0.0-0.8) H 09/15/23 07:08 Baso # (Auto) 3.0 10^3/uL (0.0-0.1) H 09/15/23 07:08 Nucleated RBC % (auto) 0.8 % 09/15/23 07:08 Total Counted 100 (0-100) 09/13/23 04:09 Atypical Lymphs % Not Reportable 09/13/23 04:09 Absolute Neutrophils 34.7 10^3/cmm (1.4-6.5) H 09/13/23 04:09 Segmented Neutrophils 55 % 09/13/23 04:09 Abs Segm Neuts (Man) 31.8 10/cmm (1.6-7.1) H 09/13/23 04:09 Band Neutrophils 5.0 % 09/13/23 04:09 Abs Band Neuts (Man) 2.9 10^3/cmm (0.0-1.2) H 09/13/23 04:09 Absolute Lymphocytes 8.7 10^3/cmm (1.2-3.4) H 09/10/23 14:56 Lymphocytes (Manual) 7 % 09/13/23 04:09 Monocytes (Manual) 0.0 % 09/13/23 04:09 Absolute Monocytes 0.0 10^3/cmm (0.1-0.6) L 09/13/23 04:09 Eosinophils (Manual) 0 % 09/13/23 04:09 Absolute Eosinophils 0.0 10^3/cmm (0.0-0.7) 09/13/23 04:09 Basophils (Manual) 0.0 % 09/13/23 04:09 Absolute Basophils 0.0 10^3/cmm (0.0-0.2) 09/13/23 04:09 Metamyelocytes 9.0 % 09/10/23 14:56 Myelocytes 27.0 % 09/13/23 04:09 Promyelocytes 5.0 % 09/13/23 04:09 Nucleated RBCs 1.0 /100WBC (0-1) 09/13/23 04:09 Nucleated RBCs # 0.5 /100WBC 09/15/23 07:08 Hypersegmented Polys 1+ 09/13/23 04:09 Platelet Estimate Increased (Normal) H 09/13/23 04:09 Giant Platelets 2+ H 09/13/23 04:09 Poikilocytosis 2+ H 09/13/23 04:09 Anisocytosis 1+ H 09/13/23 04:09 Macrocytosis Trace 09/10/23 14:56 APTT 44.6 SECONDS (23.9-36.7) H 09/12/23 15:44 Sodium 133 mmol/L (136-145) L 09/15/23 07:08 Potassium 4.4 mmol/L (3.5-5.1) 09/15/23 07:08 Chloride 95 mmol/L (98-107) L 09/15/23 07:08 Carbon Dioxide 25 mmol/L (22-29) 09/15/23 07:08 Anion Gap 17.4 (5-19) 09/15/23 07:08 BUN 30 mg/dL (8-23) H 09/15/23 07:08 Creatinine 5.7 mg/dL (0.5-0.9) H* 09/15/23 07:08 GFR Calculation Not Reportable 09/15/23 07:08 Glucose 95 mg/dL (65-115) 09/15/23 07:08 POC Glucose 177 mg/dL (70-110) H 09/15/23 10:22 Calculated Osmolality 282 mOsm/kg (285-295) L 09/15/23 07:08 Lactic Acid 1.5 mmol/L (0.5-2.2) 09/10/23 14:56 Calcium 8.4 mg/dL (8.5-10.5) L 09/15/23 07:08 Magnesium 2.0 mg/dL (1.7-2.3) 09/11/23 02:13 Total Bilirubin 0.2 mg/dL (0.15-1.2) 09/14/23 04:19 AST 12 U/L (0-32) 09/14/23 04:19 ALT 9 U/L (0-33) 09/14/23 04:19 Alkaline Phosphatase 121 U/L (35-105) H 09/14/23 04:19 Creatine Kinase 195 U/L (26-192) H 09/10/23 14:56 Troponin T Baseline 720 ng/L (0-10) H* 09/10/23 14:56 Troponin T 120 Minute 718.9 ng/L (0-10) H 09/10/23 17:32 Delta Troponin T -1.1 ABS# (0-10) L 09/10/23 17:32 Troponin T Hi Sens 6Hr 854.6 ng/L (0-10) H 09/10/23 20:46 Troponin T Hi Sens 6Hr Delta 134.6 ng/L (0-12) H* 09/10/23 20:46 NT-Pro-B Natriuret Pep > 03284 pg/mL (0-450) H 09/10/23 14:56 Total Protein 5.7 g/dL (6.6-8.7) L 09/14/23 04:19 Albumin 3.2 g/dL (3.5-5.2) L 09/14/23 04:19 Globulin 2.5 g/dL (1.3-4.6) 09/14/23 04:19 Procalcitonin 0.30 ng/mL (0-0.5) 09/10/23 14:56 TSH 0.71 uIU/mL (0.27-4.20) 09/10/23 14:56 Urine Color Yellow (Yellow) 09/10/23 15:37 Urine Appearance Clear (CLEAR) 09/10/23 15:37 Urine pH 7 (5-7) 09/10/23 15:37 Ur Specific [place] 1.005 (1.005-1.030) 09/10/23 15:37 Urine Protein 3+ (Negative) H 09/10/23 15:37 Urine Glucose (UA) Norm (Normal) 09/10/23 15:37 Urine Ketones 1+ (Negative) H 09/10/23 15:37 Urine Blood 2+ (Negative) H 09/10/23 15:37 Urine Nitrate Negative (Negative) 09/10/23 15:37 Urine Bilirubin 1+ (Negative) H 09/10/23 15:37 Urine Urobilinogen Norm mg/dL (Negative) 09/10/23 15:37 Ur Leukocyte Esterase Trace (Negative) H 09/10/23 15:37 Urine RBC 0-4 /hpf (0-2) H 09/10/23 15:37 Urine WBC 10-15 /hpf (0-5) H 09/10/23 15:37 Ur Squamous Epith Cells 0-4 /hpf (0-5) H 09/10/23 15:37 Amorphous Sediment Not Reportable 09/10/23 15:37 Urine Bacteria Trace /hpf (NONE) 09/10/23 15:37 Lymphoma Panel Cancelled 09/10/23 14:56 Immunophenotype Interp Cancelled 09/10/23 14:56 Immunophenotype Interp See report 09/10/23 14:56 C. difficile (PCR) Positive (Negative) H 09/10/23 22:58 C.difficile Tox Confrm Negative (Negative) 09/10/23 22:58 Hep Bs Antigen Non-reactive (Nonreactive) 09/11/23 00:43 Hep Bs Antibody 79.4 (11.5-1000) 09/11/23 00:43 SARS-CoV-2 Ag (Rapid) negative (Negative) 09/15/23 12:16 Vitals Last Vital Signs Temp 98.2 F 09/15/23 11:58 Pulse 66 09/15/23 11:58 Resp 21 H 09/15/23 11:58 BP 131/58 09/15/23 11:58 Pulse Ox 98 09/15/23 11:58 O2 Del Method Room Air 09/15/23 11:58 O2 Flow Rate 2 09/15/23 10:07 Discharge Plan Discharge Patient Disposition: Xfer SNF Condition: Stable Prescriptions: New Dificid 200 mg tablet 200 mg PO BID 10 Days Qty: 20 0RF clopidogrel 75 mg Tablet 75 mg PO DAILY 30 Days Qty: 30 0RF Continued Macular Vitamin 500-5-1 mcg-mg-mg tablet 1 tab PO QAM alpha lipoic acid 100 mg capsule 100 mg PO DAILY sertraline 100 mg tablet 100 mg PO QAM Qty: 90 1RF ondansetron HCl 4 mg tablet 4 mg PO Q6H PRN (Reason: nausea and vomiting) Qty: 30 1RF (DME) True Metrix Level 1 Solution See Rx Instructions .Route Qty: 1 11RF Rx Instructions: As directed with True metrix meter (DME) True Metrix Glucose Test Strip Strip See Rx Instructions .Route Qty: 300 3RF Rx Instructions: to use in true metrix meter TID 90 day supply (DME) lancets [TRUEplus Lancets] 33 gauge misc See Rx Instructions .Route Qty: 300 3RF Rx Instructions: to use TID to check blood sugar 90 day supply carvedilol 3.125 mg tablet 3.125 mg PO BID@, Qty: 180 3RF Novolog FlexPen U-100 Insulin 100 unit/mL (3 mL) insulin pen See Rx Instructions .ROUTE .COMPLEX Qty: 30 3RF Dose Instruction: INJECT 5-10 UNITS UNDER THE SKIN PER SLIDING SCALE TWICE DAILY Rx Instructions: INJECT 5-10 UNITS UNDER THE SKIN PER SLIDING SCALE TWICE DAILY folic acid 1 mg tablet 1 mg PO QAM Qty: 30 0RF sevelamer carbonate 2.4 gram powder in packet 7.2 g PO TID atorvastatin 40 mg tablet 40 mg PO BEDTIME aspirin 81 mg tablet,delayed release (DR/EC) 81 mg PO QAM ergocalciferol (vitamin D2) 1,250 mcg (50,000 unit) capsule 1,250 mcg PO Q7D insulin detemir U-100 100 unit/mL (3 mL) insulin pen 20 unit SUBCUT QPM mecobalamin (vitamin B12) 1,000 mcg tablet,disintegrating 1,000 mcg sublingual QAM Discontinued nilotinib 150 mg capsule 300 mg PO Q12H Qty: 120 11RF Rx Instructions: must be taken on empty stomach; no food at least 2 hrs before or 1 hr after dose Discharge Orders: Discharge Order (Routine); Ordered 09/15/23 Ordered By: Kim Granados Referrals: [facility] [Outside] Suzette Lopez FNP [Nurse Practitioner] - 09/18/23 3:15 am Juancho Loyd MD [Primary Care Provider] - 09/19/23 11:15 am Discharge Diet: Usual diet Discharge Activity: Resume usual activity Patient Instructions: Clopidogrel (By mouth) (Plavix), Fidaxomicin (By mouth) (Dificid), Heart Failure (DC), Coronary Angioplasty (DC), Dialysis Diet (DC), Hemodialysis (DC), CHF Stoplight, Opioid Safety, Post Angiogram Home Care Instructions, Post Heart Attack Stoplight Discharge Attestations Time Spent in Discharge Care*: greater than 30 min Status at Discharge: Cognitive status at discharge: cognitively intact, Behavioral status at discharge: cooperative, Quality Metrics Clinical Quality Measures [ Acute Myocardial Infaction { Clinical Trial Participant: No; Contraindication to aspirin: None; Aspirin prescribed; Contraindication to statin: None; Statin prescribed; Contraindication to PCI: None; PCI performed;}] Coding Level of Care Code Acute Code for Chg Fwd Diagnoses ESRD on dialysis N18.6; Z99.2 C. difficile diarrhea A04.72 NSTEMI (non-ST elevated myocardial infarction) I21.4 Chronic myeloid leukemia C92.10
[2023-09-15 16:55] LABS: Glucose Point of Care 121 mg/dL (70-110)
--- NOTE | 2023-09-15 18:31 | PC.HD ---
Pt worried that she will miss her ride ([employer] won't picker and sorter load and unload after 5pm) and requested treatment be terminated 20 minutes early.
== END 2023-09-15 17:19 | disposition skilled nursing facility (03) | DRG 321 ==
LOC: ER 16:09 → CSU 17:47
PROVIDERS: Hospitalist; Internal Medicine; Internal Medicine Cardiovascular Disease; Admitting Provider Internal Medicine; Emergency Provider Nurse Practitioner Family; PCP Family Medicine; Visit Provider Student in an Organized Health Care Education/Training Program
PROC: B2111ZZ Fluoroscopy of Multiple Coronary Arteries using Low Osmolar Contrast (ICD-10-PCS; principal; 2023-09-12 09:15)
PROC: 027034Z Dilation of Coronary Artery, One Artery with Drug-eluting Intraluminal Device, Percutaneous Approach (ICD-10-PCS; principal; 2023-09-12 10:00)
DX: I21.4 Non-ST elevation (NSTEMI) myocardial infarction (principal); I50.33 Acute on chronic diastolic (congestive) heart failure; N18.6 End stage renal disease; I13.2 Hypertensive heart and chronic kidney disease with heart failure and with stage 5 chronic kidney disease, or end stage renal disease; C92.10 Chronic myeloid leukemia, BCR/ABL-positive, not having achieved remission; I25.10 Atherosclerotic heart disease of native coronary artery without angina pectoris; B96.89 Other specified bacterial agents as the cause of diseases classified elsewhere; E11.22 Type 2 diabetes mellitus with diabetic chronic kidney disease; E11.42 Type 2 diabetes mellitus with diabetic polyneuropathy; E11.51 Type 2 diabetes mellitus with diabetic peripheral angiopathy without gangrene; W18.30XA Fall on same level, unspecified, initial encounter; R09.02 Hypoxemia; D63.1 Anemia in chronic kidney disease; E78.00 Pure hypercholesterolemia, unspecified; K21.9 Gastro-esophageal reflux disease without esophagitis; G47.33 Obstructive sleep apnea (adult) (pediatric); F32.A Depression, unspecified; Z99.2 Dependence on renal dialysis; Z95.5 Presence of coronary angioplasty implant and graft; Z79.69 Long term (current) use of other immunomodulators and immunosuppressants; Z79.4 Long term (current) use of insulin; Z79.02 Long term (current) use of antithrombotics/antiplatelets; Z79.82 Long term (current) use of aspirin; Z11.52 Encounter for screening for COVID-19
CPT/HCPCS: 36415; 36416; 70450; 71250; 72125; 74176; 80048; 80053; 81001; 82550; 82962; 83605; 83735; 83880; 84145; 84443; 84484; 85007; 85025; 85049; 85347; 85610; 85730; 86706; 87040; 87324; 87340; 87426; 87493; 88184; 88185; 90935; 92978; 93005; 93306; 93458; 94664; 94760; 96365; 96372; 96375; 96376; 97110; 97116; 97161; 97530; 99152; 99153; 99285; A9270; C1725; C1753; C1769; C1874; C1887; C1894; C9600; J1200; J1644; J1815; J2250; J2405; J2543; J2765; J3010; J3370; J3490; J7030; J7050; Q4081; Q9967

== ENCOUNTER 2023-10-10 08:30 | Oncology outpatient (recurring) (ONCR) | payer MEDICARE, SELFPAY ==
[2023-10-03 11:02] LABS: Hematocrit 29.5 % (36-47); Mean Corpuscular HGB Conc 31.9 g/dL (30-55); Mean Corpuscular Hemoglobin 29.7 pg (27-33); Mean Corpuscular Volume 93.1 fl (85-98); Mean Platelet Volume 10.3 fL (7.4-10.4); Platelet Count 1042 10^3/cmm (157-399); Red Blood Count 3.17 10^6/uL (3.85-5.65); Red Cell Distribution Width 18.8 % (12.1-15.1)
[2023-10-03 11:21] LABS: Alanine Aminotransferase 17 U/L (0-33); Albumin Level 3.5 g/dL (3.5-5.2); Alkaline Phosphatase 89 U/L (35-105); Anion Gap 14.3 (5-19); Aspartate Amino Transferase 23 U/L (0-32); Blood Urea Nitrogen 22 mg/dL (8-23); Calcium 8.7 mg/dL (8.5-10.5); Carbon Dioxide 34 mmol/L (22-29); Chloride 97 mmol/L (98-107); Globulin 2.3 g/dL (1.3-4.6); Glucose 133 mg/dL (65-115); Lactate Dehydrogenase 312 U/L (135-214); Osmolality Calculated 295 mOsm/kg (285-295); Potassium 5.3 mmol/L (3.5-5.1); Sodium 140 mmol/L (136-145); Total Bilirubin 0.2 mg/dL (0.15-1.2); Total Protein 5.8 g/dL (6.6-8.7)
[2023-10-03 11:44] LABS: White Blood Count 49.27 10^3/uL (3.29-11.43)
[2023-10-03 11:49] LABS: Slide Review Slide Review Perform
[2023-10-03 11:50] LABS: Absolute Eosinophils 2.5 10^3/cmm (0.0-0.7); Absolute Segmented Neutrophil 27.6 10/cmm (1.6-7.1); Anisocytosis Trace; Band Neutrophils Absolute 6.4 10^3/cmm (0.0-1.2); Eosinophils 5 %; Giant Platelets 1+; Lymphocytes 8 %; Lymphocytes Absolute 3.9 10^3/cmm (1.2-3.4); Monocytes Absolute 1.5 10^3/cmm (0.1-0.6); Platelet Estimate Increased (Normal); Polychromasia Trace; Segmented Neutrophils 56 %; Total Cells Counted 100 (0-100)
[2023-10-03 13:31] LABS: Iron 55 ug/dL (37-145); Percent Saturation 32.1 % (20-50); Total Iron Binding Capacity 171 mcg/dl; Unsaturated Iron Binding 116 ug/dL (112-347)
[2023-10-03 13:45] LABS: Ferritin 1610 ng/mL (15-150)
[2023-10-08 00:19] LABS: P210 BCR ALB1 DETECTED; P210 BCR ALB1 Yes Test Yes; Prior Results BLOOD; Source blood
--- NOTE | 2023-10-10 08:58 | ECG_ITS ---
[facility] Test Date: 2023-10-10 Pat Name: Iris Rockwell Department: Room: Gender: Female Geological Manager: : 1945 Requested By: Dede Rayo Order Number: [id number] Coco MD: Bill Boston M.D. Measurements Intervals [place] Rate: 80 P: 50 CA: 228 QRS: 140 QRSD: 148 T: 44 QT: 421 QTc: 489 Interpretive Statements SINUS RHYTHM WITH FIRST DEGREE AV BLOCK INTRAVENTRICULAR CONDUCTION DELAY [130+ ms QRS DURATION] Compared to ECG 09/10/2023 17:14:55 T-wave abnormality no longer present Electronically Signed On 10-10-2023 12:29:53 CDT by Bill Boston M.D. [id number]
[2023-10-10 10:21] LABS: Mean Corpuscular HGB Conc 32.1 g/dL (30-55); Mean Corpuscular Hemoglobin 29.9 pg (27-33); Mean Platelet Volume 10.8 fL (7.4-10.4); Platelet Count 855 10^3/cmm (157-399); Red Blood Count 3.01 10^6/uL (3.85-5.65); Red Cell Distribution Width 19.2 % (12.1-15.1)
[2023-10-10 10:27] LABS: Reticulocyte % 2.4 % (0.5-2.0)
[2023-10-10 10:37] LABS: Alanine Aminotransferase 12 U/L (0-33); Albumin Level 3.7 g/dL (3.5-5.2); Alkaline Phosphatase 110 U/L (35-105); Anion Gap 14.6 (5-19); Aspartate Amino Transferase 20 U/L (0-32); Blood Urea Nitrogen 27 mg/dL (8-23); Calcium 9.4 mg/dL (8.5-10.5); Carbon Dioxide 33 mmol/L (22-29); Chloride 95 mmol/L (98-107); Creatinine Clr Calc Pharmacy 14.6375; Globulin 2.9 g/dL (1.3-4.6); Glucose 153 mg/dL (65-115); Osmolality Calculated 292 mOsm/kg (285-295); Potassium 5.6 mmol/L (3.5-5.1); Sodium 137 mmol/L (136-145); Total Bilirubin 0.2 mg/dL (0.15-1.2); Total Protein 6.6 g/dL (6.6-8.7)
[2023-10-10 11:02] LABS: Absolute Eosinophils 2.7 10^3/cmm (0.0-0.7); Absolute Neutrophil 44.3 10^3/cmm (1.4-6.5); Absolute Segmented Neutrophil 42.5 10/cmm (1.6-7.1); Band Neutrophils Absolute 1.8 10^3/cmm (0.0-1.2); Basophils Absolute 1.8 10^3/cmm (0.0-0.2); Eosinophils 3 %; Lymphocytes 7 %; Lymphocytes Absolute 6.3 10^3/cmm (1.2-3.4); Monocytes Absolute 7.2 10^3/cmm (0.1-0.6); Platelet Estimate Increased (Normal); Segmented Neutrophils 47 %; Slide Review Slide Review Perform; Total Cells Counted 100 (0-100)
[2023-10-10 11:03] LABS: White Blood Count 90.51 10^3/uL (3.29-11.43)
[2023-10-10 11:22] LABS: Vitamin B12 > 2000 pg/mL (232-1245)
[2023-10-10 12:15] LABS: Folate Level > 20.0 ng/mL (4.8-37.3)
[2023-10-13 12:45] LABS: Soluble Transferrin Receptor 1.02 mg/L (0.76-1.76)
[2023-10-13 15:39] LABS: Methylmalonic Acid 478 nmol/L (87-318)
== END 2023-10-24 23:59 | disposition home or self-care (01) ==
PROVIDERS: PCP Family Medicine; Visit Provider Internal Medicine
DX: D64.9 Anemia, unspecified; Z53.9 Procedure and treatment not carried out, unspecified reason; C95.90 Leukemia, unspecified not having achieved remission; C92.10 Chronic myeloid leukemia, BCR/ABL-positive, not having achieved remission
CPT/HCPCS: 36415; 80053; 81206; 82607; 82728; 82746; 83540; 83550; 83615; 83735; 83921; 84238; 85007; 85025; 85045; 93005; 99214; 99215

== ENCOUNTER 2023-10-16 20:47 | Emergency (ER) | payer MEDICARE, SELFPAY ==
[2023-10-16 20:54] VITALS: BP 155/76; PULSE 71; RESP 18; TEMP 36.9; O2SAT 90
--- NOTE | 2023-10-16 21:19 | ED_ITS ---
HPI - Extremity Problem 2 General: Chief complaint: Extremity Problem,Nontraumatic Stated complaint: Feet and Leg Pain Time Seen by Provider: 10/16/23 21:08 History of Present Illness: Patient presents to the ER with complaints of generalized weakness and bilateral lower extremity edema. Patient says she is felt about 3 times over the last 3 days and had to get EMS there to help her get on the floor which is unusual. She also states that her lower extremities are more swollen than normal. Patient was taking Lasix in the [facility] but those stopped on the of this month. She states even when she was on it they did not work very well. Patient is a dialysis patient but she states she still produces urine. Patient really has no other complaints at this time. Review of Systems 2 General: Reports: 10 or more systems reviewed and unremarkable except in HPI and below PFSH ED 2 PFSH: Medical History Chronic myeloid leukemia Leukocytosis Thrombocytosis ESRD on hemodialysis Diabetes Hypertension Congestive heart failure Acute exacerbation of CHF (congestive heart failure) Takotsubo cardiomyopathy -had extensive workup done in [facility] in [place] in 06/2019; records reviewed -Echo with EF=43%, LVH, noted distal septal, apical and anterolateral hypokinesia/apical ballooning consistent with Takotsubo cardiomyopathy; mild MR. No mention of stress testing or cardiac cath. 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; s/p toe amputations due to diabetic foot infections Hypertension Surgical History S/P hemodialysis catheter insertion (09/25/20) History of cataract surgery History of surgery on arm left arm, due to extravasation History of drainage of abscess left vulvar/perineal area History of bladder suspension procedure History of hernia repair History of total hysterectomy History of cholecystectomy History of appendectomy 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 Family History Father CAD (coronary artery disease) by report, she never knew him Mother Breast cancer Grandmother Breast cancer Denies family history of Colon cancer Diabetes Hypertension Stroke Social History Smoking and tobacco/nicotine status: never used tobacco/nicotine Alcohol intake: current Alcohol intake frequency: holidays/special occasions only Substance/Drug Use: never Current occupational status: disabled Physical Exam 2 Const: COMMON NORMALS: no acute distress, average body habitus, patient oriented x3, no limitations, healthy appearing, alert and well nourished Neck/C-Spine: COMMON NORMALS: no JVD Chest: COMMONS NORMALS: normal inspection of the chest and normal palpation of entire chest wall Resp: COMMON NORMALS: normal respiratory effort, No retractions, No use of accessory muscles and clear to auscultation bilaterally AUSCULTATION: clear to auscultation bilaterally Cardio: COMMON NORMALS: no JVD, regular rate, regular rhythm, S1 normal heart sound present, S2 normal heart sound present, No gallops present (Cardio), No clicks present (Cardio) and No rub (Cardio) RATE: regular rate RHYTHM: r egular rhythm HEART SOUNDS: S1 normal heart sound present and S2 normal heart sound present GI: COMMON NORMALS: Normal to inspection, nondistended, normoactive bowel sounds present, Soft to palpation, non-tender, No hepatosplenomegaly present and no masses PALPATION: Yes Soft to palpation and Yes No hepatosplenomegaly present Extremity: NARRATIVE EXTREMITY EXAM: 1-2+ pitting edema bilateral lower extre mities least up to the knees Neuro: COMMON NORMALS: patient oriented x3 SENSORIUM/ORIENTATION: Yes alert Course 2 Vital Signs: Vital signs: Vital Signs Temperature 98.4 F 10/16/23 20:54 Pulse Rate 104 H 10/16/23 22:09 Respiratory Rate 18 10/16/23 20:54 Blood Pressure 148/78 10/16/23 22:09 Pulse Oximetry 93 10/16/23 22:09 Oxygen Delivery Me thod Room Air 10/16/23 20:54 MDM - Extremity (Nontraumatic) Medical Decision Making Patient presents to the ER complains of weakness and bilateral lower extremity edema. Patient does have CML. Lab work was obtained which was stable for the patient. Patient was given Bumex 2 mg IM. Patient be discharged home on Bumex 2 mg p.o. daily for the next 7 days. Differential Diagnosis Likely lower extremity edema; Unlikely herpes zoster, gout, cellulitis, superficial thrombophlebitis, deep venous thrombosis of upper extremity or deep vein thrombosis of lower extremity Medical Records I reviewed the patient's medical records. Lab Data I reviewed the patient's lab results. 10/16/23 21:10/16/23: Laboratory Results WBC 102.11 10^3/uL (3.29-11.43) H* 10/16/23: RBC 2.89 10^6/uL (3.85-5.65) L 10/16/23: Hgb 8.60 g/dL (11.27-16.99) L 10/16/23: Hct 26.9 % (36-47) L 10/16/23: MCV 93.1 fl (85-98) 10/16/23: MCH 29.8 pg (27-33) 10/16/23: MCHC 32.0 g/dL (30-55) 10/16/23: RDW 19.4 % (12.1-15.1) H 10/16/23: Plt Count 731 10^3/cmm (157-399) H 10/16/23 21: MPV 10.8 fL (7.4-10.4) H 10/16/23: Lymph % (Auto) Not Reportable 10/16/23: [place] % (Auto) Not Reportable 10/16/23: Lymph # (Auto) Not Reportable 10/16/23: [place] # (Auto) Not Reportable 10/16/23: Total Counted 100 (0-100) 10/16/23: Atypical Lymphs % Not Reportable 10/16/23: Absolute Neutrophils 63.3 10^3/cmm (1.4-6.5) H 10/16/23 21: Segmented Neutrophils 53 % 10/16/23 21: Abs Segm Neuts (Man) 54.1 10/cmm (1.6-7.1) H 10/16/23: Band Neutrophils 9.0 % 10/16/23: Abs Band Neuts (Man) 9.2 10^3/cmm (0.0-1.2) H 10/16/23: Lymphocytes (Manual) 9 % 10/16/23 21: Monocytes (Manual) 7.0 % 10/16/23: Absolute Monocytes 7.1 10^3/cmm (0.1-0.6) H 10/16/23: Eosinophils (Manual) 0 % 10/16/23: Absolute Eosinophils 0.0 10^3/cmm (0.0-0.7) 10/16/23: Basophils (Manual) 0.0 % 10/16/23: Absolute Basophils 0.0 10^3/cmm (0.0-0.2) 10/16/23: Metamyelocytes 4.0 % 10/16/23: Myelocytes 15.0 % 10/16/23: Promyelocytes 3.0 % 10/16/23: Platelet Estimate Increased (Normal) H 10/16/23: Sodium 137 mmol/L (136-145) 10/16/23: Potassium 4.3 mmol/L (3.5-5.1) 10/16/23: Chloride 96 mmol/L (98-107) L 10/16/23: Carbon Dioxide 29 mmol/L (22-29) 10/16/23: Anion Gap 16.3 (5-19) 10/16/23: BUN 35 mg/dL (8-23) H 10/16/23: Creatinine 4.8 mg/dL (0.5-0.9) H 10/16/23: GFR Calculation Not Reportable 10/16/23: Glucose 213 mg/dL (65-115) H 10/16/23: Calculated Osmolality 298 mOsm/kg (285-295) H 04/22/24 21:29 Calcium 9.3 mg/dL (8.5-10.5) 10/16/23 21: Phosphorus 3.9 mg/dL (2.5-4.5) 10/16/23 21: Magnesium 2.1 mg/dL (1.7-2.3) 10/16/23 21:29 Total Bilirubin 0.3 mg/dL (0.15-1.2) 10/16/23 21: AST 23 U/L (0-32) 10/16/23 21:29 ALT 40 U/L (0-33) H 10/16/23 21: Alkaline Phosphatase 168 U/L (35-105) H 10/16/23 21: Total Protein 6.3 g/dL (6.6-8.7) L 10/16/23 21: Albumin 3.5 g/dL (3.5-5.2) 10/16/23 21: Globulin 2.8 g/dL (1.3-4.6) 10/16/23 21:29 No radiology studies performed this visit Discharge Plan Discharge Patient Disposition: Home Clinical Impression: Episode of generalized weakness Edema Qualifiers: Edema type: unspecified Qualified Code(s): R60.9 - Edema, unspecified Condition: Stable Prescriptions: New bumetanide 2 mg tablet 2 mg PO DAILY Qty: 5 0RF Discontinued furosemide 20 mg tablet 20 mg PO DAILY Qty: 7 0RF No Action bosutinib 100 mg capsule 200 mg PO DAILY Qty: 60 3RF Rx Instructions: administer with meal/food; swallow whole OR open/mix in yogurt/applesauce; do not crush/chew mecobalamin (vitamin B12) 1,000 mcg tablet,disintegrating 1,000 mcg sublingual QAM Qty: 30 0RF Macular Vitamin 500-5-1 mcg-mg-mg tablet 1 tab PO QAM alpha lipoic acid 100 mg capsule 100 mg PO DAILY sertraline 100 mg tablet 100 mg PO QAM Qty: 90 1RF ondansetron HCl 4 mg tablet 4 mg PO Q6H PRN (Reason: nausea and vomiting) Qty: 30 1RF (DME) True Metrix Level 1 Solution See Rx Instructions .Route Qty: 1 11RF Rx Instructions: As directed with True metrix meter (DME) True Metrix Glucose Test Strip Strip See Rx Instructions .Route Qty: 300 3RF Rx Instructions: to use in true metrix meter TID 90 day supply (DME) lancets [TRUEplus Lancets] 33 gauge misc See Rx Instructions .Route Qty: 300 3RF Rx Instructions: to use TID to check blood sugar 90 day supply carvedilol 3.125 mg tablet 3.125 mg PO BID@08,21 Qty: 180 3RF Novolog FlexPen U-100 Insulin 100 unit/mL (3 mL) insulin pen See Rx Instructions .ROUTE .COMPLEX Qty: 30 3RF Dose Instruction: INJECT 5-10 UNITS UNDER THE SKIN PER SLIDING SCALE TWICE DAILY Rx Instructions: INJECT 5-10 UNITS UNDER THE SKIN PER SLIDING SCALE TWICE DAILY folic acid 1 mg tablet 1 mg PO DAILY Qty: 30 2RF sevelamer carbonate 2.4 gram powder in packet 7.2 g PO TID atorvastatin 40 mg tablet 40 mg PO BEDTIME ergocalciferol (vitamin D2) 1,250 mcg (50,000 unit) capsule 1,250 mcg PO Q7D insulin detemir U-100 100 unit/mL (3 mL) insulin pen 20 unit SUBCUT QPM Discharge Orders: Discharge ED (Routine); Ordered 10/16/23 Ordered By: Clif Burgess Referrals: Juancho Loyd MD [Primary Care Provider] - 1 week Patient Instructions: Weakness (ED), Edema (ED) Activity Restrictions/Additional Instructions: Your lab work in ER came back unremarkable for your condition. You are given 2 mg of Bumex IM as a diuretic. You will be prescribed 2 mg to take every day for the next 7 days to see if it helps with your edema. Please follow-up with your family practice physician within next 7 days for further evaluation and treatment. Coding Level of Care Code ED Arch Support Maker for Ivett Koo
[2023-10-16 21:40] LABS: Hematocrit 26.9 % (36-47); Mean Corpuscular Hemoglobin 29.8 pg (27-33); Mean Corpuscular Volume 93.1 fl (85-98); Mean Platelet Volume 10.8 fL (7.4-10.4); Platelet Count 731 10^3/cmm (157-399); Red Blood Count 2.89 10^6/uL (3.85-5.65); Red Cell Distribution Width 19.4 % (12.1-15.1)
[2023-10-16 21:57] LABS: Alanine Aminotransferase 40 U/L (0-33); Albumin Level 3.5 g/dL (3.5-5.2); Alkaline Phosphatase 168 U/L (35-105); Aspartate Amino Transferase 23 U/L (0-32); Blood Urea Nitrogen 35 mg/dL (8-23); Calcium 9.3 mg/dL (8.5-10.5); Carbon Dioxide 29 mmol/L (22-29); Chloride 96 mmol/L (98-107); Creatinine Clr Calc Pharmacy 10.7532; Globulin 2.8 g/dL (1.3-4.6); Glucose 213 mg/dL (65-115); Magnesium 2.1 mg/dL (1.7-2.3); Osmolality Calculated 298 mOsm/kg (285-295); Phosphorus 3.9 mg/dL (2.5-4.5); Sodium 137 mmol/L (136-145); Total Bilirubin 0.3 mg/dL (0.15-1.2); Total Protein 6.3 g/dL (6.6-8.7)
[2023-10-16 22:03] LABS: Slide Review Slide Review Perform
[2023-10-16 22:04] LABS: Absolute Neutrophil 63.3 10^3/cmm (1.4-6.5); Absolute Segmented Neutrophil 54.1 10/cmm (1.6-7.1); Band Neutrophils Absolute 9.2 10^3/cmm (0.0-1.2); Eosinophils 0 %; Lymphocytes 9 %; Monocytes Absolute 7.1 10^3/cmm (0.1-0.6); Platelet Estimate Increased (Normal); Segmented Neutrophils 53 %; Total Cells Counted 100 (0-100)
[2023-10-16 22:05] LABS: Anion Gap 16.3 (5-19); Potassium 4.3 mmol/L (3.5-5.1)
[2023-10-16 22:06] LABS: White Blood Count 102.11 10^3/uL (3.29-11.43)
[2023-10-16 22:09] VITALS: BP 148/78; PULSE 104; O2SAT 93
[2023-10-16] MEDS: bumetanide 0.25 mg/mL SDV 4 mL 2 MG IVP (22:13)
[2023-10-16 23:21] VITALS: PULSE 74; O2SAT 91
[2023-10-17 00:42] VITALS: BP 137/62; PULSE 74; O2SAT 90
== END 2023-10-17 00:28 | disposition home or self-care (01) ==
PROVIDERS: Emergency Provider Emergency Medicine; PCP Family Medicine
DX: R60.9 Edema, unspecified (principal); R53.1 Weakness; Z79.4 Long term (current) use of insulin; E11.22 Type 2 diabetes mellitus with diabetic chronic kidney disease; I13.2 Hypertensive heart and chronic kidney disease with heart failure and with stage 5 chronic kidney disease, or end stage renal disease; I50.9 Heart failure, unspecified; N18.6 End stage renal disease; Z99.2 Dependence on renal dialysis
CPT/HCPCS: 36415; 80053; 83735; 84100; 85007; 85025; 96374; 99284; J3490

== ENCOUNTER 2023-10-18 04:41 | Observation (INO) | payer MEDICARE, SELFPAY ==
[2023-10-18] VITALS (94 sets, daily range): BP systolic 111–172; BP diastolic 54–95; PULSE 63–84; RESP 13–30; TEMP 36.6–37; O2SAT 85–98; BMI 33.1
--- NOTE | 2023-10-18 04:46 | ED_ITS ---
Documented by User: Clif Burgess DO 10/18/23 21:04 HPI - SOB/Dyspnea 2 General: Chief Complaint: Shortness of Breath/Dyspnea Stated Complaint: SOB Time Seen by Provider: 10/18/23 04:46 History of Present Illness: HPI Narrative: Patient presents to the ER with complaints of worsening shortness of breath over the last 24 hours. Patient was seen in this ER approximately 2 days ago by myself for generalized weakness and edema. She was started on Bumex 2 mg daily. She says her legs have decreased in size but she still has a weakness since then and during the last 24 hours she has had increasing shortness of breath. 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 Patient says she just darted back on acute chemotherapy yesterday. And this has made her feel bad overall as well. Patient also said she missed dialysis toward the end of last week and she had dialysis on Monday trying to catch up. Patient's normally scheduled today. Patient said she used to have oxygen at home but they took her off of it and she returned all equipment and no longer has the equipment. Review of Systems 2 General: Reports: 10 or more systems reviewed and unremarkable except in HPI and below PFSH ED 2 PFSH: Medical History Chronic myeloid leukemia Leukocytosis Thrombocytosis ESRD on hemodialysis Diabetes Hypertension Congestive heart failure Acute exacerbation of CHF (congestive heart failure) Takotsubo cardiomyopathy -had extensive workup done in [facility] in [place] in 06/2019; records reviewed -Echo with EF=43%, LVH, noted distal septal, apical and anterolateral hypokinesia/apical ballooning consistent with Takotsubo cardiomyopathy; mild MR. No mention of stress testing or cardiac cath. 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; s/p toe amputations due to diabetic foot infections Hypertension Surgical History S/P hemodialysis catheter insertion (09/25/20) History of cataract surgery History of surgery on arm left arm, due to extravasation History of drainage of abscess left vulvar/perineal area History of bladder suspension procedure History of hernia repair History of total hysterectomy History of cholecystectomy History of appendectomy 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 Family History Father CAD (coronary artery disease) by report, she never knew him Mother Breast cancer Grandmother Breast cancer Denies family history of Colon cancer Diabetes Hypertension Stroke Social History Smoking and tobacco/nicotine status: never used tobacco/nicotine Alcohol intake: current Alcohol intake frequency: holidays/special occasions only Substance/Drug Use: never Current occupational status: disabled Physical Exam 2 Const: COMMON NORMALS: no acute distress, average body habitus, patient oriented x3, no limitations, healthy appearing, alert and well nourished HENMT: COMMON NORMALS: normocephalic, atraumatic, hearing grossly normal bilaterally, external ears normal, Normal external nose present, moist oral mucous membranes and oropharynx normal HEAD & SCALP: normocephalic and atraumatic NOSE: Normal external nose present EXTERNAL EAR: Yes external ears normal Neck/C-Spine: COMMON NORMALS: no JVD Chest: COMMONS NORMALS: normal inspection of the chest and normal palpation of entire chest wall Resp: COMMON NORMALS: normal respiratory effort, No retractions, No use of accessory muscles and clear to auscultation bilaterally AUSCULTATION: clear to auscultation bilaterally Cardio: COMMON NORMALS: no JVD, regular rate, regular rhythm, S1 normal heart sound present, S2 normal heart sound present, No gallops present (Cardio), No clicks present (Cardio), No murmurs present (Cardio) and No rub (Cardio) R ATE: regular rate RHYTHM: regular rhythm HEART SOUNDS: S1 normal heart sound present and S2 normal heart sound present GI: COMMON NORMALS: Normal to inspection, nondistended, normoactive bowel sounds present, Soft to palpation, non-tender, No hepatosplenomegaly present and no masses PALPATION: Yes Soft to palpation and Yes No hepatosplenomegaly present Extremity: NARRATIVE EXTREMITY EXAM: 1+ pitting edema bilateral lower extremi ties Neuro: COMMON NORMALS: patient oriented x3 SENSORIUM/ORIENTATION: Yes alert Course 2 Vital Signs: Vital signs: Vital Signs Temperature 97.8 F 10/19/23 07:03 Pulse Rate 67 10/19/23 07:03 Respiratory Rate 18 10/19/23 13:52 Blood Pressure 150/65 10/19/23 13:52 Pulse Oximetry 87 L 10/19/23 09:13 Oxygen Delivery Me thod Nasal Cannula 10/19/23 07:03 Oxygen Flow Rate 2 10/19/23 09:13 MDM - SOB/Dyspnea Medical Decision Making Care transferred over to daytime doc at shift change. Lab Data 10/19/23 02:47 10/19/23 02:47 Labs/Radiology: Radiology Impressions Chest X-Ray 10/18/23 04:54 IMPRESSION: No acute findings. Laboratory Results WBC 91.56 10^3/uL (3.29-11.43) H* 10/18/23 04:58 RBC 3.04 10^6/uL (3.85-5.65) L 10/18/23 04:58 Hgb 9.00 g/dL (11.27-16.99) L 10/18/23 04:58 Hct 27.9 % (36-47) L 10/18/23 04:58 MCV 91.8 fl (85-98) 10/18/23 04:58 MCH 29.6 pg (27-33) 10/18/23 04:58 MCHC 32.3 g/dL (30-55) 10/18/23 04:58 RDW 19.9 % (12.1-15.1) H 10/18/23 04:58 Plt Count 739 10^3/cmm (157-399) H 10/18/23 04:58 MPV 10.7 fL (7.4-10.4) H 10/18/23 04:58 Lymph % (Auto) Not Reportable 10/18/23 04:58 [place] % (Auto) Not Reportable 10/18/23 04:58 Lymph # (Auto) Not Reportable 10/18/23 04:58 [place] # (Auto) Not Reportable 10/18/23 04:58 Total Counted 100 (0-100) 10/18/23 04:58 Atypical Lymphs % Not Reportable 10/18/23 04:58 Segmented Neutrophils 50 % 10/18/23 04:58 Abs Segm Neuts (Man) 45.8 10/cmm (1.6-7.1) H 10/18/23 04:58 Band Neutrophils Not Reportable 10/18/23 04:58 Lymphocytes (Manual) 5 % 10/18/23 04:58 Monocytes (Manual) 8.0 % 10/18/23 04:58 Absolute Monocytes 7.3 10^3/cmm (0.1-0.6) H 10/18/23 04:58 Eosinophils (Manual) 0 % 10/18/23 04:58 Absolute Eosinophils 0.0 10^3/cmm (0.0-0.7) 10/18/23 04:58 Basophils (Manual) 0.0 % 10/18/23 04:58 Absolute Basophils 0.0 10^3/cmm (0.0-0.2) 10/18/23 04:58 Metamyelocytes 8.0 % 10/18/23 04:58 Myelocytes 17.0 % 10/18/23 04:58 Promyelocytes 9.0 % 10/18/23 04:58 Nucleated RBCs 3.0 /100WBC (0-1) H 10/18/23 04:58 Smudge Cells Trace 10/18/23 04:58 Platelet Estimate Increased (Normal) H 10/18/23 04:58 Sodium 140 mmol/L (136-145) 10/18/23 04:58 Potassium 4.0 mmol/L (3.5-5.1) 10/18/23 04:58 Chloride 95 mmol/L (98-107) L 10/18/23 04:58 Carbon Dioxide 31 mmol/L (22-29) H 10/18/23 04:58 Anion Gap 18.0 (5-19) 10/18/23 04:58 BUN 23 mg/dL (8-23) 10/18/23 04:58 Creatinine 3.6 mg/dL (0.5-0.9) H 10/18/23 04:58 GFR Calculation Not Reportable 10/18/23 04:58 Glucose 179 mg/dL (65-115) H 10/18/23 04:58 Calculated Osmolality 298 mOsm/kg (285-295) H 10/18/23 04:58 Calcium 9.1 mg/dL (8.5-10.5) 10/18/23 04:58 Phosphorus 3.5 mg/dL (2.5-4.5) 10/18/23 04:58 Magnesium 2.0 mg/dL (1.7-2.3) 10/18/23 04:58 Total Bilirubin 0.6 mg/dL (0.15-1.2) 10/18/23 04:58 AST 50 U/L (0-32) H 10/18/23 04:58 ALT 47 U/L (0-33) H 10/18/23 04:58 Alkaline Phosphatase 255 U/L (35-105) H 10/18/23 04:58 Troponin T Baseline 191 ng/L (0-10) H* 10/18/23 04:58 Troponin T 120 Minute 186.1 ng/L (0-10) H 10/18/23 07:10 Delta Troponin T -4.9 ABS# (0-10) L 10/18/23 07:10 NT-Pro-B Natriuret Pep 11774 pg/mL (0-450) H 10/18/23 04:58 Total Protein 6.5 g/dL (6.6-8.7) L 10/18/23 04:58 Albumin 3.7 g/dL (3.5-5.2) 10/18/23 04:58 Globulin 2.8 g/dL (1.3-4.6) 10/18/23 04:58 All radiology interpretation(s) finalized by discharge EKG Data EKG 1: I personally reviewed and interpreted this EKG as follows: EKG Interpretation Date: 10/18/23 EKG interpretation time: 04:47 Interpretation: Rate 77 beats minute, AK interval 212, QRS duration of 115, QTc of 455, sinus rhythm with first-degree AV block with frequent PVCs, Discharge Plan Discharge Patient Disposition: Admitted As Inpatient Admit Provider: Jim Gomez Clinical Impression: ESRD (end stage renal disease), Edema, Congestive heart failure Condition: Stable Discharge Diet: Usual diet Discharge Activity: Increase activity as tolerated Sign Out Sign Out Data: Patient Sign Out occurred on 10/18/23 at 05:56. Patient's care was discussed, and care was transferred from Clif Burgess DO to Nimesh Ramos DO. Coding Level of Care Code ED Wire Drawing Die Maker for Chg Fwd Documented by User: Nimesh Ramos DO 10/27/23 06:31 HPI - SOB/Dyspnea 2 General: Chief Complaint: Shortness of Breath/Dyspnea Stated Complaint: SOB Time Seen by Provider: 10/18/23 04:46 PFSH ED 2 PFSH: Medical History Chronic myeloid leukemia Leukocytosis Thrombocytosis ESRD on hemodialysis Diabetes Hypertension Congestive heart failure Acute exacerbation of CHF (congestive heart failure) Takotsubo cardiomyopathy -had extensive workup done in [facility] in [place] in 06/2019; records reviewed -Echo with EF=43%, LVH, noted distal septal, apical and anterolateral hypokinesia/apical ballooning consistent with Takotsubo cardiomyopathy; mild MR. No mention of stress testing or cardiac cath. 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; s/p toe amputations due to diabetic foot infections Hypertension Surgical History S/P hemodialysis catheter insertion (09/25/20) History of cataract surgery History of surgery on arm left arm, due to extravasation History of drainage of abscess left vulvar/perineal area History of bladder suspension procedure History of hernia repair History of total hysterectomy History of cholecystectomy History of appendectomy 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 Family History Father CAD (coronary artery disease) by report, she never knew him Mother Breast cancer Grandmother Breast cancer Denies family history of Colon cancer Diabetes Hypertension Stroke Social History Smoking and tobacco/nicotine status: never used tobacco/nicotine Alcohol intake: current Alcohol intake frequency: holidays/special occasions only Substance/Drug Use: never Current occupational status: disabled Course 2 Vital Signs: Vital signs: Vital Signs Temperature 97.8 F 10/19/23 07:03 Pulse Rate 67 10/19/23 07:03 Respiratory Rate 18 10/19/23 13:52 Blood Pressure 150/65 10/19/23 13:52 Pulse Oximetry 87 L 10/19/23 09:13 Oxygen Delivery Me thod Nasal Cannula 10/19/23 07:03 Oxygen Flow Rate 2 10/19/23 09:13 MDM - SOB/Dyspnea Medical Decision Making Care transferred over to daytime doc at shift change. Care assumed at change of shift. Chart labs and images reviewed. Discussed with hospitalist will admit for worsening congestive heart failure she will need dialysis again today she is desatting on echo be able to discharge her to do outpatient dialysis. She has a history of CLL has significant leukocytosis but is on par with what she has had in the past. She also recently had coronary artery stenting is not currently having any chest pain consult nephrology orders written. Medical Records I reviewed the patient's medical records. Lab Data I reviewed the patient's lab results. 10/19/23 02:47 10/19/23 02:47 Labs/Radiology: Radiology Impressions Chest X-Ray 10/18/23 04:54 IMPRESSION: No acute findings. Laboratory Results WBC 91.56 10^3/uL (3.29-11.43) H* 10/18/23 04:58 RBC 3.04 10^6/uL (3.85-5.65) L 10/18/23 04:58 Hgb 9.00 g/dL (11.27-16.99) L 10/18/23 04:58 Hct 27.9 % (36-47) L 10/18/23 04:58 MCV 91.8 fl (85-98) 10/18/23 04:58 MCH 29.6 pg (27-33) 10/18/23 04:58 MCHC 32.3 g/dL (30-55) 10/18/23 04:58 RDW 19.9 % (12.1-15.1) H 10/18/23 04:58 Plt Count 739 10^3/cmm (157-399) H 10/18/23 04:58 MPV 10.7 fL (7.4-10.4) H 10/18/23 04:58 Lymph % (Auto) Not Reportable 10/18/23 04:58 [place] % (Auto) Not Reportable 10/18/23 04:58 Lymph # (Auto) Not Reportable 10/18/23 04:58 [place] # (Auto) Not Reportable 10/18/23 04:58 Total Counted 100 (0-100) 10/18/23 04:58 Atypical Lymphs % Not Reportable 10/18/23 04:58 Segmented Neutrophils 50 % 10/18/23 04:58 Abs Segm Neuts (Man) 45.8 10/cmm (1.6-7.1) H 10/18/23 04:58 Band Neutrophils Not Reportable 10/18/23 04:58 Lymphocytes (Manual) 5 % 10/18/23 04:58 Monocytes (Manual) 8.0 % 10/18/23 04:58 Absolute Monocytes 7.3 10^3/cmm (0.1-0.6) H 10/18/23 04:58 Eosinophils (Manual) 0 % 10/18/23 04:58 Absolute Eosinophils 0.0 10^3/cmm (0.0-0.7) 10/18/23 04:58 Basophils (Manual) 0.0 % 10/18/23 04:58 Absolute Basophils 0.0 10^3/cmm (0.0-0.2) 10/18/23 04:58 Metamyelocytes 8.0 % 10/18/23 04:58 Myelocytes 17.0 % 10/18/23 04:58 Promyelocytes 9.0 % 10/18/23 04:58 Nucleated RBCs 3.0 /100WBC (0-1) H 10/18/23 04:58 Smudge Cells Trace 10/18/23 04:58 Platelet Estimate Increased (Normal) H 10/18/23 04:58 Sodium 140 mmol/L (136-145) 10/18/23 04:58 Potassium 4.0 mmol/L (3.5-5.1) 10/18/23 04:58 Chloride 95 mmol/L (98-107) L 10/18/23 04:58 Carbon Dioxide 31 mmol/L (22-29) H 10/18/23 04:58 Anion Gap 18.0 (5-19) 10/18/23 04:58 BUN 23 mg/dL (8-23) 10/18/23 04:58 Creatinine 3.6 mg/dL (0.5-0.9) H 10/18/23 04:58 GFR Calculation Not Reportable 10/18/23 04:58 Glucose 179 mg/dL (65-115) H 10/18/23 04:58 Calculated Osmolality 298 mOsm/kg (285-295) H 10/18/23 04:58 Calcium 9.1 mg/dL (8.5-10.5) 10/18/23 04:58 Phosphorus 3.5 mg/dL (2.5-4.5) 10/18/23 04:58 Magnesium 2.0 mg/dL (1.7-2.3) 10/18/23 04:58 Total Bilirubin 0.6 mg/dL (0.15-1.2) 10/18/23 04:58 AST 50 U/L (0-32) H 10/18/23 04:58 ALT 47 U/L (0-33) H 10/18/23 04:58 Alkaline Phosphatase 255 U/L (35-105) H 10/18/23 04:58 Troponin T Baseline 191 ng/L (0-10) H* 10/18/23 04:58 Troponin T 120 Minute 186.1 ng/L (0-10) H 10/18/23 07:10 Delta Troponin T -4.9 ABS# (0-10) L 10/18/23 07:10 NT-Pro-B Natriuret Pep 62809 pg/mL (0-450) H 10/18/23 04:58 Total Protein 6.5 g/dL (6.6-8.7) L 10/18/23 04:58 Albumin 3.7 g/dL (3.5-5.2) 10/18/23 04:58 Globulin 2.8 g/dL (1.3-4.6) 10/18/23 04:58 Discharge Plan Discharge Patient Disposition: Admitted As Inpatient Admit Provider: Jim Gomez Clinical Impression: ESRD (end stage renal disease), Edema, Congestive heart failure Condition: Stable Discharge Diet: Usual diet Discharge Activity: Increase activity as tolerated Sign Out Sign Out Data: Patient Sign Out occurred on 10/18/23 at 05:56. Patient's care was discussed, and care was transferred from Clif Burgess DO to Nimesh Ramos DO. Coding Level of Care Code ED Wire Drawing Die Maker for Ivett Koo
--- NOTE | 2023-10-18 04:47 | ECG_ITS ---
[facility] Test Date: 2023-10-18 Pat Name: Iris Rockwell Department: Room: Gender: Female Supervisor Personnel Clerks: : 1945 Requested By: Clif Burgess Order Number: [id number] Coco MD: Betzy Dorantes M.D. Measurements Intervals [place] Rate: 77 P: 77 UT: 212 QRS: 109 QRSD: 115 T: 91 QT: 424 QTc: 480 Interpretive Statements SINUS RHYTHM WITH FIRST DEGREE AV BLOCK WITH FREQUENT VENTRICULAR PREMATURE COMPLEXES RIGHT AXIS DEVIATION [QRS AXIS > 100] MODERATE INTRAVENTRICULAR CONDUCTION DELAY [110+ ms QRS DURATION] MODERATE ST DEPRESSION [0.05+ mV ST DEPRESSION] Compared to ECG 10/10/2023 09:01:18 Right-axis deviation now present ST (T wave) deviation now present Electronically Signed On 10-18-2023 18:27:07 CDT by Betzy Dorantes M.D. [email or web address] ([id number] f
--- NOTE | 2023-10-18 04:54 | XRR_ITS ---
PROCEDURE INFORMATION: Exam: XR Chest Exam date and time: 10/18/2023 5:02 AM Age: 77 years old Clinical indication: Shortness of breath; Prior surgery; Surgery date: 1-6 months; Surgery type: Stent; Additional info: Dyspnea TECHNIQUE: Imaging protocol: Radiologic exam of the chest. Views: 1 view. COMPARISON: [place] [id number] 09/10/2023 2:42 PM FINDINGS: Lungs: Mild chronic interstitial prominence bilaterally. Pleural spaces: Chronic left pleural thickening with chronic atelectasis or fibrosis in the left lower lobe. Heart/Mediastinum: Unremarkable. No cardiomegaly. Bones/joints: Unremarkable. XR/XR chest 1V portable [id number] IMPRESSION: No acute findings.
[2023-10-18 05:05] LABS: Hematocrit 27.9 % (36-47); Mean Corpuscular HGB Conc 32.3 g/dL (30-55); Mean Corpuscular Hemoglobin 29.6 pg (27-33); Mean Corpuscular Volume 91.8 fl (85-98); Mean Platelet Volume 10.7 fL (7.4-10.4); Platelet Count 739 10^3/cmm (157-399); Red Blood Count 3.04 10^6/uL (3.85-5.65); Red Cell Distribution Width 19.9 % (12.1-15.1)
[2023-10-18 05:22] LABS: Alanine Aminotransferase 47 U/L (0-33); Albumin Level 3.7 g/dL (3.5-5.2); Alkaline Phosphatase 255 U/L (35-105); Aspartate Amino Transferase 50 U/L (0-32); Blood Urea Nitrogen 23 mg/dL (8-23); Calcium 9.1 mg/dL (8.5-10.5); Carbon Dioxide 31 mmol/L (22-29); Chloride 95 mmol/L (98-107); Globulin 2.8 g/dL (1.3-4.6); Glucose 179 mg/dL (65-115); Osmolality Calculated 298 mOsm/kg (285-295); Sodium 140 mmol/L (136-145); Total Bilirubin 0.6 mg/dL (0.15-1.2); Total Protein 6.5 g/dL (6.6-8.7)
[2023-10-18 05:23] LABS: Troponin(5th) Baseline 191 ng/L (0-10)
[2023-10-18 05:32] LABS: Absolute Segmented Neutrophil 45.8 10/cmm (1.6-7.1); Segmented Neutrophils 50 %; Slide Review Slide Review Perform; Total Cells Counted 100 (0-100)
[2023-10-18 05:33] LABS: Eosinophils 0 %; Lymphocytes 5 %; Monocytes Absolute 7.3 10^3/cmm (0.1-0.6); Platelet Estimate Increased (Normal); Smudge Cells Trace
[2023-10-18 05:34] LABS: White Blood Count 91.56 10^3/uL (3.29-11.43)
[2023-10-18 06:05] LABS: Phosphorus 3.5 mg/dL (2.5-4.5)
[2023-10-18 06:32] LABS: NT Pro B Type Natriuretic Pept 58567 pg/mL (0-450)
--- NOTE | 2023-10-18 06:55 | ECG_ITS ---
[facility] Test Date: 2023-10-18 Pat Name: Iris Rockwell Department: Room: Gender: Female [employer] History Teacher: : 1945 Requested By: Clif Burgess Order Number: [id number] Reading MD: Betzy Dorantes M.D. Measurements Intervals [place] Rate: 68 P: 77 ME: 226 QRS: 95 QRSD: 119 T: 91 QT: 453 QTc: 484 Interpretive Statements SINUS RHYTHM WITH FIRST DEGREE AV BLOCK WITH OCCASIONAL VENTRICULAR PREMATURE COMPLEXES BORDERLINE RIGHT AXIS DEVIATION [QRS AXIS > 90] MODERATE INTRAVENTRICULAR CONDUCTION DELAY [110+ ms QRS DURATION] MODERATE ST DEPRESSION [0.05+ mV ST DEPRESSION] Compared to ECG 10/18/2023 04:47:26 Ventricular premature complex(es) now present ST (T wave) deviation still present Electronically Signed On 10-18-2023 18:49:12 CDT by Betzy Dorantes M.D. [id number]
[2023-10-18 07:47] LABS: Troponin 5 2HR 186.1 ng/L (0-10); Troponin 5 2HR Delta -4.9 ABS# (0-10)
--- NOTE | 2023-10-18 10:55 | ECG_ITS ---
[facility] Test Date: 2023-10-18 Pat Name: Iris Rockwell Department: Room: Gender: Female Hvac Design Engineer: : 1945 Requested By: Clif Burgess Order Number: [id number] Coco MD: Betzy Dorantes M.D. Measurements Intervals [place] Rate: 72 P: 100 CO: 217 QRS: 102 QRSD: 112 T: 88 QT: 457 QTc: 501 Interpretive Statements SINUS RHYTHM WITH FIRST DEGREE AV BLOCK WITH FREQUENT VENTRICULAR PREMATURE COMPLEXES ARM LEADS REVERSED [INVERTED P AND QRS IN I] Compared to ECG 10/18/2023 09:17:09 Intraventricular conduction delay no longer present ST (T wave) deviation no longer present Electronically Signed On 10-18-2023 18:51:41 CDT by Betzy Dorantes M.D. [email or web address].[employer]/store/[id number]
[2023-10-18 11:32] LABS: Anion Gap 16.1 (5-19); Blood Urea Nitrogen 24 mg/dL (8-23); Calcium 8.8 mg/dL (8.5-10.5); Carbon Dioxide 31 mmol/L (22-29); Chloride 97 mmol/L (98-107); Glucose 153 mg/dL (65-115); Osmolality Calculated 297 mOsm/kg (285-295); Potassium 4.1 mmol/L (3.5-5.1); Sodium 140 mmol/L (136-145)
[2023-10-18 11:34] LABS: Troponin 5 6HR Delta 6.7 ng/L (0-12)
[2023-10-18 11:36] LABS: Troponin 5 6HR 197.7 ng/L (0-10)
[2023-10-18 12:03] LABS: Hepatitis B Core AB, Total Non-Reactive (Nonreactive); Hepatitis B Surface AB 97.3 (11.5-1000); Hepatitis B Surface Antigen Non-Reactive (Nonreactive)
--- NOTE | 2023-10-18 12:29 | P.HP_ITS ---
Providers/Chief Complaint 2 Admitting Physician: Jim Gomez MD Primary Care Provider: Juancho Loyd MD Chief Complaint: SOB History of Present Illness Iris Rockwell is a 77 year old female presenting to the emergency department with worsening shortness of breath. She missed dialysis on Monday. She was recently released from the nursing facility for rehabilitation on Monday. She did receive dialysis yesterday, with the intention on doing it again today. In the emergency department she was needing oxygen, approximately 2 L. She states she is short of breath with even a small amount of activities such as transferring out of a bed to a wheelchair. She denies any chest discomfort. She reports no cough, fever, nausea, vomiting, blood in her stool, or diarrhea. She has not been around any sick contacts. She does report she has had oxygen before, but it was taken away about a month ago. She does note that she was on oxygen in the intermediate, but not discharged with it. On September 11 she had an angiogram procedure done, and received a right coronary artery angioplasty and stent placement. Subtotally occluded obtuse marginal could not be crossed. Review of Systems 2 General: Reports: 10 or more systems reviewed and unremarkable except in HPI and below Card: Denies: chest pain Resp: Reports: dyspnea GI: Denies: abdominal pain, nausea, vomiting, hematochezia or melena Medications/Allergies Home Medications Medication Instructions Recorded Confirmed Last Taken Type blood glucose control, low (True #1 ea 06/07/22 10/18/23 10/26/22 Rx Metrix Level 1 solution) blood sugar diagnostic (True #300 ea 06/07/22 10/18/23 10/26/22 Rx Metrix Glucose Test Strip) lancets 33 gauge (TRUEplus Lancets) #300 ea 06/07/22 10/18/23 10/26/22 Rx atorvastatin 40 mg tablet 40 mg PO BEDTIME 10/25/22 10/18/23 10/17/23 History sevelamer carbonate 2.4 gram oral 7.2 g PO TID 10/25/22 10/18/23 10/17/23 History powder packet alpha lipoic acid 100 mg capsule 100 mg PO DAILY 02/22/23 10/18/23 10/17/23 History vskijpod-sfwfcvpa-agtpz acid 500 1 tab PO QAM 02/22/23 10/18/2310/16/24 History mcg-lutein 5 mg-zeaxanth 1 mg tablet (Macular Vitamin) insulin detemir U-100 100 unit/mL 20 unit SUBCUT QPM 07/07/23 10/18/23 10/17/23 History (3 mL) subcutaneous pen carvedilol 3.125 mg tablet 3.125 mg PO BID@08,21 #180 tabs 07/13/23 10/18/23 10/17/23 Rx insulin aspart U-100 100 unit/mL See Rx Instructions .Route 08/10/23 10/18/23 10/17/23 Rx (3 mL) subcutaneous pen (Novolog .COMPLEX #30 mL FlexPen U-100 Insulin aspart) sertraline 100 mg tablet 100 mg PO QAM #90 tabs 08/31/23 10/18/23 10/17/23 Rx ondansetron HCl 4 mg tablet 4 mg PO Q6H PRN nausea and 09/05/23 10/18/23 Unknown Rx vomiting #30 tabs ergocalciferol (vitamin D2) 1,250 1,250 mcg PO Q7D 09/10/23 10/18/23 Unknown History mcg (50,000 unit) capsule bosutinib 100 mg capsule 200 mg (2 x 100 mg) PO DAILY #60 10/10/23 10/18/23 10/17/23 Rx caps folic acid 1 mg tablet 1 mg PO DAILY #30 tabs 10/12/23 10/18/23 10/17/23 Rx bumetanide 2 mg tablet 2 mg PO DAILY #5 tabs 10/16/23 10/18/23 10/17/23 Rx clopidogrel 75 mg tablet 75 mg PO DAILY 10/18/23 10/18/23 10/17/23 History mecobalamin (vitamin B12) 1,000 1,000 mcg sublingual QAM #30 tabs 10/18/23 Unknown Rx mcg disintegrating tablet,sublingual nilotinib 150 mg capsule (Tasigna) See Rx Instructions .Route .COMPLEX 10/18/23 10/18/23 10/17/23 History Allergies Allergy/AdvReac Type Severity Reaction Status Date / Time adhesive Allergy ALGY-Rash Verified 10/18/23 04:49 morphine Allergy unknown Verified 10/18/23 04:49 zolpidem Allergy na Verified 10/18/23 04:49 PFSH Acute 2 PFSH: Medical History Chronic myeloid leukemia Leukocytosis Thrombocytosis ESRD on hemodialysis Diabetes Hypertension Congestive heart failure Acute exacerbation of CHF (congestive heart failure) Takotsubo cardiomyopathy -had extensive workup done in [facility] in [place] in 06/2019; records reviewed -Echo with EF=43%, LVH, noted distal septal, apical and anterolateral hypokinesia/apical ballooning consistent with Takotsubo cardiomyopathy; mild MR. No mention of stress testing or cardiac cath. 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; s/p toe amputations due to diabetic foot infections Hypertension Surgical History S/P hemodialysis catheter insertion (09/25/20) History of cataract surgery History of surgery on arm left arm, due to extravasation History of drainage of abscess left vulvar/perineal area History of bladder suspension procedure History of hernia repair History of total hysterectomy History of cholecystectomy History of appendectomy 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 Family History Father CAD (coronary artery disease) by report, she never knew him Mother Breast cancer Grandmother Breast cancer Denies family history of Colon cancer Diabetes Hypertension Stroke Social History Smoking and tobacco/nicotine status: never used tobacco/nicotine Alcohol intake: current Alcohol intake frequency: holidays/special occasions only Substance/Drug Use: never Current occupational status: disabled Vitals/I&O/Wt Last Vital Signs Temp 97.8 F 10/18/23 04:44 Pulse 67 10/18/23 11:25 Resp 15 10/18/23 11:25 BP 128/74 10/18/23 11:30 Pulse Ox 86 L 10/18/23 11:35 O2 Del Method Nasal Cannula 10/18/23 12:13 O2 Flow Rate 2 10/18/23 10:20 Weight last 48 hrs Weight 90.265 kg Weight 90.265 kg Physical Exam 2 Narrative: General exam demonstrates a pleasant and conversive white female, on 2 L of oxygen, with mild to moderate tachypnea. She can complete around 4-5 word sentences. HEENT: Atraumatic and normocephalic. Oropharynx clear. Neck is supple no lymphadenopathy thyromegaly Cardiovascular regular rate and rhythm with a 2/6 systolic murmur Lungs diminished breath sounds bilaterally. No wheezes. Abdomen is soft with positive bowel sounds. No obvious organomegaly exam is deferred Extremities 2+ lower extremity edema. AV fistula left upper extremity with bruit and thrill. Skin no rash Neuro no obvious focal deficits Data 10/18/23 04:58 10/18/23 11:10 Other Labs: EKG per my review demonstrates sinus rhythm, borderline right axis deviation, first-degree AV block, frequent PVCs. Nonspecific ST-T wave changes. AST elevated at 50, ALT 47, alk phos 255. Total bilirubin, magnesium, calcium, albumin normal. Troponin 191 with repeat of 186 at 120 minutes Echo September 10 demonstrated an EF around 50%, hypokinesia inferior and inferior wall segments. Grade 1/4 diastolic dysfunction. Chest x-ray by my read demonstrates chronic left effusion/atelectasis, cardiomegaly. Calcified aorta. A&P Assessment and plan (1) Congestive heart failure: Patient presents with acute congestive heart failure/fluid overload from acute systolic heart failure as well as acute diastolic heart failure. She accumulates fluid secondary to her end-stage renal disease as well. She did miss dialysis Monday, but needs further fluid removed for improvement in her aeration. She may also require home oxygen and it sounds like this was given at the nursing facility prior to her discharge on Monday. Continue low-dose beta-jeanette We will continue bumetanide but I am not for sure how effective this is considering diminishing urine output and need for dialysis. Observation status Associated with hypoxia. Qualifiers: Heart failure chronicity: acute on chronic Heart failure type: u nspecified Qualified Code(s): I50.9 - Heart failure, unspecified (2) ESRD on hemodialysis: Patient with history of end-stage renal disease on hemodialysis Nephrology consulted Dialysis today Reevaluation tomorrow, to see if further dialysis is needed or she can resume dialysis on Monday as an outpatient. (3) Leukemia: Patient with history of CLL. Recently restarted on her bosutinib. Hold this currently. She only received 1 dose and was unlikely to contribute to this hospitalization. Qualifiers: Leukemia Active/Remission status: without remission Leukemia type: u nspecified Qualified Code(s): C95.90 - Leukemia, unspecified not having achieved remission (4) CAD (coronary artery disease): Continue Plavix, statin, low-dose aspirin. Qualifiers: Coronary Disease-Associated Artery/Lesion type: [place] artery [place] vs. transplanted heart: [place] heart Associated angina: without angina Qualified Code(s): I25.10 - Atherosclerotic heart disease of [place] coronary artery without angina pectoris Plan Type 2 diabetes. Sliding scale insulin, consistent carb diet Multiple other medical problems as outlined in her past medical history Allow natural Heparin subcutaneous for DVT prophylaxis. Attestations 2 Medical Necessity Statement*: Will need less than 2 midnight stay for evaluation and treatment of acute congestive heart failure, fluid overload with hypoxia. Coding [facility] Congestive heart failure I50.9 Heart failure chronicity: acute on chronic Heart failure type: unspecified ESRD on hemodialysis N18.6; Z99.2 Leukemia C95.90 Leukemia Active/Remission status: without remission Leukemia type: unspecified Coronary artery disease involving [place] coronary artery of [place] heart without angina pectoris I25.10 Coronary Disease-Associated Artery/Lesion type: [place] artery [place] vs. transplanted heart: [place] heart Associated angina: without angina
[2023-10-18] MEDS: heparin 5,000 unit/mL INJ 1 mL 5000 UNIT SUBCUT (15:00)
[2023-10-18] MEDS: clopidogrel 75 mg Tablet PO (15:00)
--- NOTE | 2023-10-18 15:48 | P.CONIM_ITS ---
Providers/Reason For Consult 2 Consulting Physician/Specialty*: [facility]/Nephrology Reason for Consult*: ESRD Attending Physician: Jim Gomez MD Primary Care Provider: Juancho Loyd MD History of Present Illness History of Present Illness Iris Rockwell is a 77 year old female Patient is a 77-year-old female with past medical history of end stage renal disease on dialysis per Monday schedule, leukemia, hypertension, diabetes, CHF presented to the emergency department due to shortness of breath. Patient missed dialysis on Monday but has done her dialysis yesterday. Patient. Patient continued to have shortness of breath. She was noted to be hypoxic in the ED. Lab data was significant for white count of 91,000, hemoglobin 9.0 Review of Systems 2 Narrative: other ROS negative Medications/Allergies Home Medications Medication Instructions Recorded Confirmed Last Taken Type blood glucose control, low (True #1 ea 06/07/22 10/18/23 10/26/22 Rx Metrix Level 1 solution) blood sugar diagnostic (True #300 ea 06/07/22 10/18/23 10/26/22 Rx Metrix Glucose Test Strip) lancets 33 gauge (TRUEplus Lancets) #300 ea 06/07/22 10/18/23 10/26/22 Rx atorvastatin 40 mg tablet 40 mg PO BEDTIME 10/25/22 10/18/23 10/17/23 History sevelamer carbonate 2.4 gram oral 7.2 g PO TID 10/25/22 10/18/23 10/17/23 History powder packet alpha lipoic acid 100 mg capsule 100 mg PO DAILY 02/22/23 10/18/23 10/17/23 History qogztsug-qtxgnash-lhmgc acid 500 1 tab PO QAM 02/22/23 10/18/23 10/17/23 History mcg-lutein 5 mg-zeaxanth 1 mg tablet (Macular Vitamin) insulin detemir U-100 100 unit/mL 20 unit SUBCUT QPM 07/07/23 10/18/23 10/17/23 History (3 mL) subcutaneous pen carvedilol 3.125 mg tablet 3.125 mg PO BID@ #180 tabs 07/13/23 10/18/23 10/17/23 Rx insulin aspart U-100 100 unit/mL See Rx Instructions .Route 08/10/23 10/18/23 10/17/23 Rx (3 mL) subcutaneous pen (Novolog .COMPLEX #30 mL FlexPen U-100 Insulin aspart) sertraline 100 mg tablet 100 mg PO QAM #90 tabs 08/31/23 10/18/23 10/17/23 Rx ondansetron HCl 4 mg tablet 4 mg PO Q6H PRN nausea and 09/05/23 10/18/23 Unknown Rx vomiting #30 tabs ergocalciferol (vitamin D2) 1,250 1,250 mcg PO Q7D 09/10/23 10/18/23 Unknown History mcg (50,000 unit) capsule bosutinib 100 mg capsule 200 mg (2 x 100 mg) PO DAILY #60 10/10/23 10/18/23 10/17/23 Rx caps folic acid 1 mg tablet 1 mg PO DAILY #30 tabs 10/12/23 10/18/23 10/17/23 Rx bumetanide 2 mg tablet 2 mg PO DAILY #5 tabs 10/16/23 10/18/23 10/17/23 Rx clopidogrel 75 mg tablet 75 mg PO DAILY 10/18/23 10/18/23 10/17/23 History mecobalamin (vitamin B12) 1,000 1,000 mcg sublingual QAM #30 tabs 10/18/23 Unknown Rx mcg disintegrating tablet,sublingual nilotinib 150 mg capsule (Tasigna) See Rx Instructions .Route .COMPLEX 10/18/23 10/18/23 10/17/23 History Allergies Allergy/AdvReac Type Severity Reaction Status Date / Time adhesive Allergy ALGY-Rash Verified 10/18/23 04:49 morphine Allergy unknown Verified 10/18/23 04:49 zolpidem Allergy na Verified 10/18/23 04:49 Current Medications Generic Name Dose Route Start Last Admin Trade Name Freq PRN Reason Stop Dose Admin Clopidogrel Bisulfate 75 mg 10/18/23 12:45 10/18/23 15:00 Clopidogrel 75 Mg Tablet PO 75 mg DAILY JT Administration Heparin Sodium (Porcine) 5,000 unit 10/18/23 12:45 10/18/23 15:00 Heparin 5,000 Unit/Ml Inj 1 Ml SUBCUT 5,000 unit Q12H JT Administration PFSH Acute 2 PFSH: Medical History Chronic myeloid leukemia Leukocytosis Thrombocytosis ESRD on hemodialysis Diabetes Hypertension Congestive heart failure Acute exacerbation of CHF (congestive heart failure) Takotsubo cardiomyopathy -had extensive workup done in [facility] in [place] in 06/2019; records reviewed -Echo with EF=43%, LVH, noted distal septal, apical and anterolateral hypokinesia/apical ballooning consistent with Takotsubo cardiomyopathy; mild MR. No mention of stress testing or cardiac cath. 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; s/p toe amputations due to diabetic foot infections Hypertension Surgical History S/P hemodialysis catheter insertion (09/25/20) History of cataract surgery History of surgery on arm left arm, due to extravasation History of drainage of abscess left vulvar/perineal area History of bladder suspension procedure History of hernia repair History of total hysterectomy History of cholecystectomy History of appendectomy 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 Family History Father CAD (coronary artery disease) by report, she never knew him Mother Breast cancer Grandmother Breast cancer Denies family history of Colon cancer Diabetes Hypertension Stroke Social History Smoking and tobacco/nicotine status: never used tobacco/nicotine Alcohol intake: current Alcohol intake frequency: holidays/special occasions only Substance/Drug Use: never Current occupational status: disabled Vitals/I&O/Wt Last Vital Signs Temp 97.8 F 10/18/23 04:44 Pulse 67 10/18/23 11:25 Resp 15 10/18/23 11:25 BP 128/74 10/18/23 11:30 Pulse Ox 86 L 10/18/23 11:35 O2 Del Method Nasal Cannula 10/18/23 12:13 O2 Flow Rate 2 10/18/23 10:20 Weight last 48 hrs Weight 90.265 kg Weight 90.265 kg Physical Exam 2 Narrative: awake , alert HEENT S1S2 RRR per report Lungs clear per report No edema Data 10/18/23 04:58 10/18/23 11:10 A&P Assessment and plan (1) ESRD (end stage renal disease): (2) ESRD on hemodialysis: Plan 1. End-stage renal disease: On MWF schedule as outpatient, now presented with shortness of breath and volume overload, HD today and ultrafiltration as tolerated 2. Acute on chronic respiratory failure: Multifactorial, HD as above 3. History of leukemia 4. Anemia: Will order PATRIZIA with HD Patient evaluated using audiovisual cart. Time spent 40 minutes Consult Attestations 2 Medical Necessity Statement: per jennifer Coding Level of Care Code Acute Code for [facility] Diagnoses ESRD (end stage renal disease) N18.6 ESRD on hemodialysis N18.6; Z99.2
[2023-10-18] MEDS: epoetin alfa 1000 Unit/0.05 mL (ESRD) 20000 UNIT IVP (15:50)
[2023-10-18] MEDS: heparin, porcine 1,000 unit/mL INJ 10 mL 1000 UNIT IV (15:52)
--- NOTE | 2023-10-18 18:34 | PC.NURSE ---
Pt returned from HD. Valentina Pablo, vp account director reports that she took off 2.5L
[2023-10-18 20:40] LABS: Glucose Point of Care 200 mg/dL (70-110)
[2023-10-18] MEDS: carvedilol 3.125 mg Tablet PO (21:49)
[2023-10-18] MEDS: insulin lispro 100 unit/1 mL SUBCUT (21:49)
[2023-10-18] MEDS: atorvastatin 40 mg Tablet PO (21:49)
[2023-10-19] VITALS (7 sets, daily range): BP systolic 132–150; BP diastolic 55–65; PULSE 65–70; RESP 15–19; TEMP 36.6–36.9; O2SAT 87–100
[2023-10-19] MEDS: heparin 5,000 unit/mL INJ 1 mL 5000 UNIT SUBCUT (00:22)
[2023-10-19 02:59] LABS: Basophils # 2.7 10^3/uL (0.0-0.1); Basophils % 3.9 %; Eosinophils # 0.8 10^3/uL (0.0-0.8); Eosinophils % 1.1 %; Hematocrit 24.8 % (36-47); Lymphocytes # 5.6 10^3/uL (0.8-4.8); Lymphocytes % 8.2 %; Mean Corpuscular HGB Conc 31.9 g/dL (30-55); Mean Corpuscular Hemoglobin 29.5 pg (27-33); Mean Corpuscular Volume 92.5 fl (85-98); Mean Platelet Volume 10.8 fL (7.4-10.4); Monocytes # 2.6 10^3/uL (0.2-0.9); Monocytes % 3.8 %; Neutrophils # 26.83 10^3/uL (1.8-7.7); Neutrophils % 39.1 %; Nucleated Red Blood Cells # 1.8 /100WBC; Nucleated Red Blood Cells % 2.6 %; Platelet Count 591 10^3/cmm (157-399); Red Blood Count 2.68 10^6/uL (3.85-5.65)
[2023-10-19 03:20] LABS: Alanine Aminotransferase 29 U/L (0-33); Albumin Level 3.2 g/dL (3.5-5.2); Alkaline Phosphatase 185 U/L (35-105); Anion Gap 11.8 (5-19); Aspartate Amino Transferase 19 U/L (0-32); Blood Urea Nitrogen 17 mg/dL (8-23); Calcium 8.7 mg/dL (8.5-10.5); Carbon Dioxide 33 mmol/L (22-29); Chloride 102 mmol/L (98-107); Creatinine Clr Calc Pharmacy 16.0756; Globulin 2.4 g/dL (1.3-4.6); Glucose 101 mg/dL (65-115); Magnesium 1.9 mg/dL (1.7-2.3); Osmolality Calculated 298 mOsm/kg (285-295); Potassium 3.8 mmol/L (3.5-5.1); Sodium 143 mmol/L (136-145); Total Bilirubin 0.4 mg/dL (0.15-1.2); Total Protein 5.6 g/dL (6.6-8.7)
[2023-10-19 03:51] LABS: Slide Review Slide Review Perform
[2023-10-19 03:52] LABS: White Blood Count 68.56 10^3/uL (3.29-11.43)
[2023-10-19] MEDS: sertraline 100 mg Tablet PO (04:59)
[2023-10-19 06:23] LABS: Glucose Point of Care 123 mg/dL (70-110)
[2023-10-19] MEDS: folic acid 1 mg Tablet PO (08:45)
[2023-10-19] MEDS: clopidogrel 75 mg Tablet PO (08:45)
[2023-10-19] MEDS: carvedilol 3.125 mg Tablet PO (08:45)
[2023-10-19] MEDS: aspirin 81 mg EC Tablet PO (08:46)
[2023-10-19] MEDS: bumetanide 1 mg Tablet 2 MG PO (08:46)
--- NOTE | 2023-10-19 10:49 | P.DS_ITS ---
Documented by User: CAROLA Barakat STDSHIRLEY 10/19/23 11:16 Discharge Providers Date of Admission: 10/18/23 11:05 Date of Discharge: October 19, 2023 Attending Provider at Admission: Jim Gomez MD Attending Provider at Discharge: Jim Gomez MD Primary Care Provider: Juancho Loyd MD Diagnoses at Discharge Discharge Diagnosis (1) ESRD (end stage renal disease): Status: Acute (2) ESRD on hemodialysis: Status: Acute Reason for Visit Reason for Visit: SOB Hospital Course Hospital Course Patient is a 77 year old female with past medical history of CHF, DM, HTN, ESRD on dialysis, GERD, ANA, thrombocytosis, and leukocytosis presented to the emergency department on 10/18/23 for a chief complaint of shortness of breath.. Mrs. Rockwell had missed her dialysis on monday and was also recently released from [facility] for rehabilitation on Monday. She received dialysis on 10/17/23 and had an intention of receiving dialysis again on day of admission but she was feeling very short of breath requiring 2L NC in the emergency department. Patient was admitted for CHF, received bumex and dialysis on admission. Monitor for hypoxia. Nephology was consulted for ESRD. 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 Patient to be discharged today, as shortness of breath as improved following dialysis. Will be discharged home with aspirin daily and home oxygen as she required 2L NC home oxygen. She also felt significantly stronger. She will receive home health. She should continue to receive dialysis on Monday, with a next dialysis tomorrow. I encouraged her to call her oncologist, regarding restarting her medicine for CLL and whether it is appropriate at this time. She will have her hemoglobin followed further at dialysis. We discussed possible blood transfusion, but she would like to avoid if possible. She is currently asymptomatic with her anemia. Discharge Data Studies Completed and Pending Completed Studies During Hospitalization Category Date Time Status XR chest 1V portable [id number] Stat Exams 10/18/23 04:54 Completed Radiology Impressions Chest X-Ray 10/18/23 04:54 IMPRESSION: No acute findings. Laboratory Results WBC 68.56 10^3/uL (3.29-11.43) H* 10/19/23 02:47 RBC 2.68 10^6/uL (3.85-5.65) L 10/19/23 02:47 Hgb 7.90 g/dL (11.27-16.99) L 10/19/23 02:47 Hct 24.8 % (36-47) L 10/19/23 02:47 MCV 92.5 fl (85-98) 10/19/23 02:47 MCH 29.5 pg (27-33) 10/19/23 02:47 MCHC 31.9 g/dL (30-55) 10/19/23 02:47 RDW 20.0 % (12.1-15.1) H 10/19/23 02:47 Plt Count 591 10^3/cmm (157-399) H 10/19/23 02:47 MPV 10.8 fL (7.4-10.4) H 10/19/23 02:47 Neut % (Auto) 39.1 % 10/19/23 02:47 Lymph % (Auto) 8.2 % 10/19/23 02:47 Isabella % (Auto) 3.8 % 10/19/23 02:47 Eos % (Auto) 1.1 % 10/19/23 02:47 Baso % (Auto) 3.9 % 10/19/23 02:47 Neut # (Auto) 26.83 10^3/uL (1.8-7.7) H 10/19/23 02:47 Lymph # (Auto) 5.6 10^3/uL (0.8-4.8) H 10/19/23 02:47 Isabella # (Auto) 2.6 10^3/uL (0.2-0.9) H 10/19/23 02:47 Eos # (Auto) 0.8 10^3/uL (0.0-0.8) 10/19/23 02:47 Baso # (Auto) 2.7 10^3/uL (0.0-0.1) H 10/19/23 02:47 Nucleated RBC % (auto) 2.6 % 10/19/23 02:47 Total Counted 100 (0-100) 10/18/23 04:58 Atypical Lymphs % Not Reportable 10/18/23 04:58 Segmented Neutrophils 50 % 10/18/23 04:58 Abs Segm Neuts (Man) 45.8 10/cmm (1.6-7.1) H 10/18/23 04:58 Band Neutrophils Not Reportable 10/18/23 04:58 Lymphocytes (Manual) 5 % 10/18/23 04:58 Monocytes (Manual) 8.0 % 10/18/23 04:58 Absolute Monocytes 7.3 10^3/cmm (0.1-0.6) H 10/18/23 04:58 Eosinophils (Manual) 0 % 10/18/23 04:58 Absolute Eosinophils 0.0 10^3/cmm (0.0-0.7) 10/18/23 04:58 Basophils (Manual) 0.0 % 10/18/23 04:58 Absolute Basophils 0.0 10^3/cmm (0.0-0.2) 10/18/23 04:58 Metamyelocytes 8.0 % 10/18/23 04:58 Myelocytes 17.0 % 10/18/23 04:58 Promyelocytes 9.0 % 10/18/23 04:58 Nucleated RBCs 3.0 /100WBC (0-1) H 10/18/23 04:58 Nucleated RBCs # 1.8 /100WBC 10/19/23 02:47 Smudge Cells Trace 10/18/23 04:58 Platelet Estimate Increased (Normal) H 10/18/23 04:58 Sodium 143 mmol/L (136-145) 10/19/23 02:47 Potassium 3.8 mmol/L (3.5-5.1) 10/19/23 02:47 Chloride 102 mmol/L (98-107) 10/19/23 02:47 Carbon Dioxide 33 mmol/L (22-29) H 10/19/23 02:47 Anion Gap 11.8 (5-19) 10/19/23 02:47 BUN 17 mg/dL (8-23) 10/19/23 02:47 Creatinine 3.1 mg/dL (0.5-0.9) H 10/19/23 02:47 GFR Calculation Not Reportable 10/19/23 02:47 Glucose 101 mg/dL (65-115) 10/19/23 02:47 POC Glucose 123 mg/dL (70-110) H 10/19/23 06:17 Calculated Osmolality 298 mOsm/kg (285-295) H 10/19/23 02:47 Calcium 8.7 mg/dL (8.5-10.5) 10/19/23 02:47 Phosphorus 3.5 mg/dL (2.5-4.5) 10/18/23 04:58 Magnesium 1.9 mg/dL (1.7-2.3) 10/19/23 02:47 Total Bilirubin 0.4 mg/dL (0.15-1.2) 10/19/23 02:47 AST 19 U/L (0-32) 10/19/23 02:47 ALT 29 U/L (0-33) 10/19/23 02:47 Alkaline Phosphatase 185 U/L (35-105) H 10/19/23 02:47 Troponin T Baseline 191 ng/L (0-10) H* 10/18/23 04:58 Troponin T 120 Minute 186.1 ng/L (0-10) H 10/18/23 07:10 Delta Troponin T -4.9 ABS# (0-10) L 10/18/23 07:10 Troponin T Hi Sens 6Hr 197.7 ng/L (0-10) H 10/18/23 11:10 Troponin T Hi Sens 6Hr Delta 6.7 ng/L (0-12) 10/18/23 11:10 NT-Pro-B Natriuret Pep 42298 pg/mL (0-450) H 10/18/23 04:58 Total Protein 5.6 g/dL (6.6-8.7) L 10/19/23 02:47 Albumin 3.2 g/dL (3.5-5.2) L 10/19/23 02:47 Globulin 2.4 g/dL (1.3-4.6) 10/19/23 02:47 Hep Bs Antigen Non-reactive (Nonreactive) 10/18/23 11:10 Hep Bs Antibody 97.3 (11.5-1000) 10/18/23 11:10 Hep B Core Total Ab Non-reactive (Nonreactive) 10/18/23 11:10 Vitals Last Vital Signs Temp 97.8 F 10/19/23 07:03 Pulse 67 10/19/23 07:03 Resp 15 10/19/23 07:03 BP 150/65 10/19/23 07:03 Pulse Ox 87 L 10/19/23 09:13 O2 Del Method Nasal Cannula 10/19/23 07:03 O2 Flow Rate 2 10/19/23 09:13 Discharge Plan Discharge Patient Disposition: Home Health Service Condition: Stable Prescriptions: New aspirin 81 mg tablet,delayed release (DR/EC) 81 mg PO DAILY Qty: 30 0RF Continued bosutinib 100 mg capsule 200 mg PO DAILY Qty: 60 3RF Rx Instructions: administer with meal/food; swallow whole OR open/mix in yogurt/applesauce; do not crush/chew Macular Vitamin 500-5-1 mcg-mg-mg tablet 1 tab PO QAM alpha lipoic acid 100 mg capsule 100 mg PO DAILY sertraline 100 mg tablet 100 mg PO QAM Qty: 90 1RF ondansetron HCl 4 mg tablet 4 mg PO Q6H PRN (Reason: nausea and vomiting) Qty: 30 1RF (DME) True Metrix Level 1 Solution See Rx Instructions .Route Qty: 1 11RF Rx Instructions: As directed with True metrix meter (DME) True Metrix Glucose Test Strip Strip See Rx Instructions .Route Qty: 300 3RF Rx Instructions: to use in true metrix meter TID 90 day supply (DME) lancets [TRUEplus Lancets] 33 gauge misc See Rx Instructions .Route Qty: 300 3RF Rx Instructions: to use TID to check blood sugar 90 day supply carvedilol 3.125 mg tablet 3.125 mg PO BID@08, Qty: 180 3RF Novolog FlexPen U-100 Insulin 100 unit/mL (3 mL) insulin pen See Rx Instructions .ROUTE .COMPLEX Qty: 30 3RF Dose Instruction: INJECT 5-10 UNITS UNDER THE SKIN PER SLIDING SCALE TWICE DAILY Rx Instructions: INJECT 5-10 UNITS UNDER THE SKIN PER SLIDING SCALE TWICE DAILY folic acid 1 mg tablet 1 mg PO DAILY Qty: 30 2RF mecobalamin (vitamin B12) 1,000 mcg tablet,disintegrating 1,000 mcg sublingual QAM Qty: 30 0RF sevelamer carbonate 2.4 gram powder in packet 7.2 g PO TID atorvastatin 40 mg tablet 40 mg PO BEDTIME ergocalciferol (vitamin D2) 1,250 mcg (50,000 unit) capsule 1,250 mcg PO Q7D clopidogrel 75 mg tablet 75 mg PO DAILY Tasigna 150 mg capsule See Rx Instructions .ROUTE .COMPLEX Rx Instructions: TAKE TWO CAPSULES BY MOUTH EVERY TWELVE HOURS (must be take ON EMPTY stomach; no food AT least TWO hours BEFORE OR ONE hour AFTER DOSE) insulin detemir U-100 100 unit/mL (3 mL) insulin pen 20 unit SUBCUT QPM bumetanide 2 mg tablet 2 mg PO DAILY Qty: 5 0RF Discharge Orders: Discharge Order (Routine); Ordered 10/19/23 Ordered By: Jim Gomez Other Ambulatory Orders: DME: Oxygen (Order) Location: None Selected Ordered By: Jim Gomez Ref[facility] [facility] [place] Juancho Loyd MD [Primary Care Provider] - 10/23/23 12:00 pm () Discharge Diet: Usual diet Discharge Activity: Increase activity as tolerated Patient Instructions: Aspirin (By mouth) (Brian Extra Strength, Brian Aspirin [facility],..., Heart Failure (DC), CHF Stoplight, Opioid Safety Activity Restrictions/Additional Instructions: Home oxygen evaluation prior to discharge Take all medicine as prescribed Follow-up with primary care provider in 3 to 5 days Keep dialysis appointments, Monday Return for any concerns. Visit with your oncologist prior to restarting your medication for CLL. Discharge Attestations Status at Discharge: Cognitive status at discharge: cognitively intact , Behavioral status at discharge: cooperative , Coding Level of Care Code 78557 Diagnoses ESRD (end stage renal disease) N18.6 ESRD on hemodialysis N18.6; Z99.2 Documented by User: Jim Gomez MD 10/19/23 11:35 Diagnoses at Discharge Discharge Diagnosis (1) ESRD (end stage renal disease): Status: Acute (2) ESRD on hemodialysis: Status: Acute Reason for Visit Reason for Visit: SOB Hospital Course Hospital Course Patient is a 77 year old female with past medical history of CHF, DM, HTN, ESRD on dialysis, GERD, ANA, thrombocytosis, and leukocytosis presented to the emergency department on 10/18/23 for a chief complaint of shortness of breath.. Mrs. Rockwell had missed her dialysis on monday and was also recently released from [facility] for rehabilitation on Monday. She received dialysis on 10/17/23 and had an intention of receiving dialysis again on day of admission but she was feeling very short of breath requiring 2L NC in the emergency department. Patient was admitted for CHF, received bumex and dialysis on admission. Monitor for hypoxia. Nephology was consulted for ESRD. 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 Patient to be discharged today, as shortness of breath as improved following dialysis. Will be discharged home with aspirin daily and home oxygen as she required 2L NC home oxygen. She also felt significantly stronger. She will receive home health. She should continue to receive dialysis on Monday, with a next dialysis tomorrow. I encouraged her to call her oncologist, regarding restarting her medicine for CLL and whether it is appropriate at this time. She will have her hemoglobin followed further at dialysis. We discussed possible blood transfusion, but she would like to avoid if possible. She is currently asymptomatic with her anemia. Physical Exam Narrative: General exam no distress Neck is supple Cardiovascular regular rate and rhythm, no murmur Lungs clear Abdomen is soft Extremities no cyanosis clubbing. Trace edema. Discharge Plan Discharge Patient Disposition: Home Health Service Condition: Stable Prescriptions: New aspirin 81 mg tablet,delayed release (DR/EC) 81 mg PO DAILY Qty: 30 0RF Continued bosutinib 100 mg capsule 200 mg PO DAILY Qty: 60 3RF Rx Instructions: administer with meal/food; swallow whole OR open/mix in yogurt/applesauce; do not crush/chew Macular Vitamin 500-5-1 mcg-mg-mg tablet 1 tab PO QAM alpha lipoic acid 100 mg capsule 100 mg PO DAILY sertraline 100 mg tablet 100 mg PO QAM Qty: 90 1RF ondansetron HCl 4 mg tablet 4 mg PO Q6H PRN (Reason: nausea and vomiting) Qty: 30 1RF (DME) True Metrix Level 1 Solution See Rx Instructions .Route Qty: 1 11RF Rx Instructions: As directed with True metrix meter (DME) True Metrix Glucose Test Strip Strip See Rx Instructions .Route Qty: 300 3RF Rx Instructions: to use in true metrix meter TID 90 day supply (DME) lancets [TRUEplus Lancets] [facility] See Rx Instructions .Route Qty: 300 3RF Rx Instructions: to use TID to check blood sugar 90 day supply carvedilol 3.125 mg tablet 3.125 mg PO BID@, Qty: 180 3RF Novolog FlexPen U-100 Insulin 100 unit/mL (3 mL) insulin pen See Rx Instructions .ROUTE .COMPLEX Qty: 30 3RF Dose Instruction: INJECT 5-10 UNITS UNDER THE SKIN PER SLIDING SCALE TWICE DAILY Rx Instructions: INJECT 5-10 UNITS UNDER THE SKIN PER SLIDING SCALE TWICE DAILY folic acid 1 mg tablet 1 mg PO DAILY Qty: 30 2RF mecobalamin (vitamin B12) 1,000 mcg tablet,disintegrating 1,000 mcg sublingual QAM Qty: 30 0RF sevelamer carbonate 2.4 gram powder in packet 7.2 g PO TID atorvastatin 40 mg tablet 40 mg PO BEDTIME ergocalciferol (vitamin D2) 1,250 mcg (50,000 unit) capsule 1,250 mcg PO Q7D clopidogrel 75 mg tablet 75 mg PO DAILY Tasigna 150 mg capsule See Rx Instructions .ROUTE .COMPLEX Rx Instructions: TAKE TWO CAPSULES BY MOUTH EVERY TWELVE HOURS (must be take ON EMPTY stomach; no food AT least TWO hours BEFORE OR ONE hour AFTER DOSE) insulin detemir U-100 100 unit/mL (3 mL) insulin pen 20 unit SUBCUT QPM bumetanide 2 mg tablet 2 mg PO DAILY Qty: 5 0RF Discharge Orders: Discharge Order (Routine); Ordered 10/19/23 Ordered By: Jim Gomez Other Ambulatory Orders: DME: Oxygen (Order) Location: None Selected Ordered By: Jim Gomez Ref[facility]: [facility] [place] Juancho Loyd MD [Primary Care Provider] - 10/23/23 12:00 pm () Discharge Diet: Usual diet Discharge Activity: Increase activity as tolerated Patient Instructions: Aspirin (By mouth) (Brian Extra Strength, Brian Aspirin [facility],..., Heart Failure (DC), CHF Stoplight, Opioid Safety Activity Restrictions/Additional Instructions: Home oxygen evaluation prior to discharge Take all medicine as prescribed Follow-up with primary care provider in 3 to 5 days Keep dialysis appointments, [facility] Return for any concerns. Visit with your oncologist prior to restarting your medication for CLL. Discharge Attestations Time Spent in Discharge Care*: greater than 30 min Quality Metrics Clinical Quality Measures [ No reported AMI, CVA or VTE this stay] Coding Level of Care Code 64333 Total time (in minutes) for Discharge: 32 Diagnoses ESRD (end stage renal disease) N18.6 ESRD on hemodialysis N18.6; Z99.2
[2023-10-19 11:21] LABS: Glucose Point of Care 185 mg/dL (70-110)
--- NOTE | 2023-10-19 13:51 | PC.NURSE ---
Discharge Note Patient discharged to home via POV accompanied by daughter. Discharge instructions reviewed with patient and/or field service representative. Mobile pharmacy medications and/or prescriptions provided. Belongings/home medications returned.
== END 2023-10-19 13:53 | disposition home health service (06) ==
LOC: ER 05:56 → CSU 14:26
PROVIDERS: Emergency Medicine; Hospitalist; Admitting Provider Internal Medicine; Emergency Provider Family Medicine; PCP Family Medicine; Visit Provider Internal Medicine
DX: E11.22 Type 2 diabetes mellitus with diabetic chronic kidney disease (principal); I13.2 Hypertensive heart and chronic kidney disease with heart failure and with stage 5 chronic kidney disease, or end stage renal disease; I50.30 Unspecified diastolic (congestive) heart failure; N18.6 End stage renal disease; Z99.2 Dependence on renal dialysis; K21.9 Gastro-esophageal reflux disease without esophagitis; G47.33 Obstructive sleep apnea (adult) (pediatric); Z99.81 Dependence on supplemental oxygen; E78.00 Pure hypercholesterolemia, unspecified; Z79.4 Long term (current) use of insulin
CPT/HCPCS: 36415; 36416; 71045; 80048; 80053; 82962; 83735; 83880; 84100; 84484; 85007; 85025; 86705; 86706; 87340; 90935; 93005; 94760; 96365; 96372; 96375; 99285; G0378; J1644; J1815; Q4081

== ENCOUNTER 2023-11-03 03:18 | Emergency (ER) | payer MEDICARE, SELFPAY ==
[2023-11-03] VITALS (8 sets, daily range): BP systolic 131–166; BP diastolic 61–98; PULSE 79–92; RESP 18–22; TEMP 36.6; O2SAT 93–98; BMI 30.2
--- NOTE | 2023-11-03 03:28 | ECG_ITS ---
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 Measurements Intervals [place] Rate: 87 P: 52 OK: 239 QRS: 91 QRSD: 121 T: 35 QT: 370 QTc: 446 Interpretive Statements SINUS RHYTHM WITH FIRST DEGREE AV BLOCK WITH FREQUENT VENTRICULAR PREMATURE COMPLEXES BORDERLINE RIGHT AXIS DEVIATION [QRS AXIS > 90] MODERATE INTRAVENTRICULAR CONDUCTION DELAY [110+ ms QRS DURATION] MINIMAL ST DEPRESSION [0.025+ mV ST DEPRESSION] Compared to ECG 10/18/2023 10:56:51 Ventricular premature complex(es) now present Intraventricular conduction delay now present ST (T wave) deviation now present Electronically Signed On 11-03-2023 9:19:59 CDT by Bill Boston M.D. [email or web address]
--- NOTE | 2023-11-03 03:30 | ED_ITS ---
HPI - SOB/Dyspnea 2 General: Chief Complaint: Shortness of Breath/Dyspnea Stated Complaint: RESP. DISTRESS Time Seen by Provider: 11/03/23 03:19 History of Present Illness: HPI Narrative: Patient presents to the ER with complaints of increasing shortness of breath. Patient says that increasing shortness of breath woke her up from sleep about 2 hours ago. Patient says she normally wears 2 L of oxygen but she had to work her way up to 4 L oxygen and EMS gave her 1 breathing treatment on route here. Patient is feeling a little bit better. Patient does do dialysis on Monday, has a history of CHF and CML. Review of Systems 2 General: Reports: 10 or more systems reviewed and unremarkable except in HPI and below PFSH ED 2 PFSH: Medical History Chronic myeloid leukemia Leukocytosis Thrombocytosis ESRD on hemodialysis Diabetes Hypertension Congestive heart failure Acute exacerbation of CHF (congestive heart failure) Takotsubo cardiomyopathy -had extensive workup done in [facility] in [place] in 06/2019; records reviewed -Echo with EF=43%, LVH, noted distal septal, apical and anterolateral hypokinesia/apical ballooning consistent with Takotsubo cardiomyopathy; mild MR. No mention of stress testing or cardiac cath. 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; s/p toe amputations due to diabetic foot infections Hypertension Surgical History S/P hemodialysis catheter insertion (09/25/20) History of cataract surgery History of surgery on arm left arm, due to extravasation History of drainage of abscess left vulvar/perineal area History of bladder suspension procedure History of hernia repair History of total hysterectomy History of cholecystectomy History of appendectomy 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 Family History Father CAD (coronary artery disease) by report, she never knew him Mother Breast cancer Grandmother Breast cancer Denies family history of Colon cancer Diabetes Hypertension Stroke Social History Smoking and tobacco/nicotine status: never used tobacco/nicotine Alcohol intake: current Alcohol intake frequency: holidays/special occasions only Substance/Drug Use: never Current occupational status: disabled Physical Exam 2 Const: COMMON NORMALS: no acute distress, average body habitus, patient oriented x3, no limitations, healthy appearing, alert and well nourished HENMT: COMMON NORMALS: normocephalic, atraumatic, hearing grossly normal bilaterally, external ears normal, Normal external nose present, moist oral mucous membranes and oropharynx normal HEAD & SCALP: normocephalic and atraumatic NOSE: Normal external nose present EXTERNAL EAR: Yes external ears normal Neck/C-Spine: COMMON NORMALS: no JVD Chest: COMMONS NORMALS: normal inspection of the chest and normal palpation of entire chest wall Resp: COMMON NORMALS: normal respiratory effort, No retractions, No use of accessory muscles and clear to auscultation bilaterally AUSCULTATION: clear to auscultation bilaterally Cardio: COMMON NORMALS: no JVD, regular rate, regular rhythm, S1 normal heart sound present, S2 normal heart sound present, No gallops present (Cardio), No clicks present (Cardio), No murmurs present (Cardio) (Approximately 2/6 systolic ejection murmur) and No rub (Cardio) RATE: regular rate RHYTHM: regular rhythm HEART SOUNDS: S1 normal heart sound present and S2 normal heart sound present GI: COMMON NORMALS: Normal to inspection, nondistended, normoactive bowel sounds present, Soft to palpation, non-tender, No hepatosplenomegaly present and no masses PALPATION: Yes Soft to palpation and Yes No hepatosplenomegaly present Neuro: COMMON NORMALS: patient oriented x3 SENSORIUM/ORIENTATION: Yes alert Course 2 Vital Signs: Vital signs: Vital Signs Temperature 97.8 F 11/03/23 03:19 Pulse Rate 92 11/03/23 04:52 Respiratory Rate 20 H 11/03/23 04:52 Blood Pressure 133/64 11/03/23 04:52 Pulse Oximetry 94 11/03/23 04:56 Oxygen Delivery Me thod Nasal Cannula 11/03/23 04:56 Oxygen Flow Rate 2 11/03/23 04:56 MDM - SOB/Dyspnea Medical Decision Making Patient comes in with resolved shortness of breath. Patient is already back down to her baseline 2 L per nasal cannula. Lab work was obtained which revealed a white count of 32 which is actually low for the patient hemoglobin 9.7, BUN/creatinine of 48 and 3.5 as well as a potassium of 5.6. Potassium is mildly elevated for the patient patient does have dialysis today, chest x-ray was obtained which is similar to her previous chest x-ray. Since patient's already back to her and her baseline status we will go and discharge patient and allow her to go to dialysis today. If the radiologist sees anything different in her x-ray we will call her with the results. Medical Records I reviewed the patient's medical records. Lab Data I reviewed the patient's lab results. 11/03/23 03:47 11/03/23 03:47 Labs/Radiology: Laboratory Results WBC 32.73 10^3/uL (3.29-11.43) H* 11/03/23 03:47 RBC 3.37 10^6/uL (3.85-5.65) L 11/03/23 03:47 Hgb 9.70 g/dL (11.27-16.99) L 11/03/23 03:47 Hct 31.1 % (36-47) L 11/03/23 03:47 MCV 92.3 fl (85-98) 11/03/23 03:47 MCH 28.8 pg (27-33) 11/03/23 03:47 MCHC 31.2 g/dL (30-55) 11/03/23 03:47 RDW 19.2 % (12.1-15.1) H 11/03/23 03:47 Plt Count 744 10^3/cmm (157-399) H 11/03/23 03:47 MPV 10.2 fL (7.4-10.4) 11/03/23 03:47 Lymph % (Auto) Not Reportable 11/03/23 03:47 [place] % (Auto) Not Reportable 11/03/23 03:47 Lymph # (Auto) Not Reportable 11/03/23 03:47 [place] # (Auto) Not Reportable 11/03/23 03:47 Total Counted 100 (0-100) 11/03/23 03:47 Atypical Lymphs % Not Reportable 11/03/23 03:47 Absolute Neutrophils 21.9 10^3/cmm (1.4-6.5) H 11/03/23 03:47 Segmented Neutrophils 63 % 11/03/23 03:47 Abs Segm Neuts (Man) 20.6 10/cmm (1.6-7.1) H 11/03/23 03:47 Band Neutrophils 4.0 % 11/03/23 03:47 Abs Band Neuts (Man) 1.3 10^3/cmm (0.0-1.2) H 11/03/23 03:47 Lymphocytes (Manual) 14 % 11/03/23 03:47 Monocytes (Manual) 3.0 % 11/03/23 03:47 Absolute Monocytes 1.0 10^3/cmm (0.1-0.6) H 11/03/23 03:47 Eosinophils (Manual) 10 % 11/03/23 03:47 Absolute Eosinophils 3.3 10^3/cmm (0.0-0.7) H 11/03/23 03:47 Basophils (Manual) 0.0 % 11/03/23 03:47 Absolute Basophils 0.0 10^3/cmm (0.0-0.2) 11/03/23 03:47 Myelocytes 4.0 % 11/03/23 03:47 Promyelocytes 2.0 % 11/03/23 03:47 Hypersegmented Polys 1+ 11/03/23 03:47 Smudge Cells Trace 11/03/23 03:47 Platelet Estimate Increased (Normal) H 11/03/23 03:47 Sodium 142 mmol/L (136-145) 11/03/23 03:47 Potassium 5.6 mmol/L (3.5-5.1) H 11/03/23 03:47 Chloride 97 mmol/L (98-107) L 11/03/23 03:47 Carbon Dioxide 34 mmol/L (22-29) H 11/03/23 03:47 Anion Gap 16.6 (5-19) 11/03/23 03:47 BUN 48 mg/dL (8-23) H 11/03/23 03:47 Creatinine 3.5 mg/dL (0.5-0.9) H 11/03/23 03:47 GFR Calculation Not Reportable 11/03/23 03:47 Glucose 194 mg/dL (65-115) H 11/03/23 03:47 Calculated Osmolality 312 mOsm/kg (285-295) H 11/03/23 03:47 Calcium 9.3 mg/dL (8.5-10.5) 11/03/23 03:47 Total Bilirubin 0.3 mg/dL (0.15-1.2) 11/03/23 03:47 AST 5 U/L (0-32) 11/03/23 03:47 ALT 20 U/L (0-33) 11/03/23 03:47 Alkaline Phosphatase 144 U/L (35-105) H 11/03/23 03:47 NT-Pro-B Natriuret Pep 19091 pg/mL (0-450) H 11/03/23 03:47 Total Protein 6.6 g/dL (6.6-8.7) 11/03/23 03:47 Albumin 3.4 g/dL (3.5-5.2) L 11/03/23 03:47 Globulin 3.2 g/dL (1.3-4.6) 11/03/23 03:47 All radiology interpretation(s) finalized by discharge Discharge Plan Discharge Patient Disposition: Home Clinical Impression: Chronic shortness of breath, End stage renal disease on dialysis, Acute hyperkalemia Condition: Stable Prescriptions: No Action bosutinib 100 mg capsule 200 mg PO DAILY Qty: 60 3RF Rx Instructions: administer with meal/food; swallow whole OR open/mix in yogurt/applesauce; do not crush/chew Macular Vitamin 500-5-1 mcg-mg-mg tablet 1 tab PO QAM alpha lipoic acid 100 mg capsule 100 mg PO DAILY sertraline 100 mg tablet 100 mg PO QAM Qty: 90 1RF ondansetron HCl 4 mg tablet 4 mg PO Q6H PRN (Reason: nausea and vomiting) Qty: 30 1RF (DME) True Metrix Level 1 Solution See Rx Instructions .Route Qty: 1 11RF Rx Instructions: As directed with True metrix meter (DME) True Metrix Glucose Test Strip Strip See Rx Instructions .Route Qty: 300 3RF Rx Instructions: to use in true metrix meter TID 90 day supply (DME) lancets [TRUEplus Lancets] 33 gauge misc See Rx Instructions .Route Qty: 300 3RF Rx Instructions: to use TID to check blood sugar 90 day supply carvedilol 3.125 mg tablet 3.125 mg PO BID@ Qty: 180 3RF Novolog FlexPen U-100 Insulin 100 unit/mL (3 mL) insulin pen See Rx Instructions .ROUTE .COMPLEX Qty: 30 3RF Dose Instruction: INJECT 5-10 UNITS UNDER THE SKIN PER SLIDING SCALE TWICE DAILY Rx Instructions: INJECT 5-10 UNITS UNDER THE SKIN PER SLIDING SCALE TWICE DAILY folic acid 1 mg tablet 1 mg PO DAILY Qty: 30 2RF mecobalamin (vitamin B12) 1,000 mcg tablet,disintegrating 1,000 mcg sublingual QAM Qty: 30 0RF sevelamer carbonate 2.4 gram powder in packet 7.2 g PO TID atorvastatin 40 mg tablet 40 mg PO BEDTIME ergocalciferol (vitamin D2) 1,250 mcg (50,000 unit) capsule 1,250 mcg PO Q7D clopidogrel 75 mg tablet 75 mg PO DAILY Tasigna 150 mg capsule See Rx Instructions .ROUTE .COMPLEX Rx Instructions: TAKE TWO CAPSULES BY MOUTH EVERY TWELVE HOURS (must be take ON EMPTY stomach; no food AT least TWO hours BEFORE OR ONE hour AFTER DOSE) aspirin 81 mg tablet,delayed release (DR/EC) 81 mg PO DAILY Qty: 30 0RF insulin detemir U-100 100 unit/mL (3 mL) insulin pen 20 unit SUBCUT QPM bumetanide 2 mg tablet 2 mg PO DAILY Qty: 5 0RF Discharge Orders: Discharge ED (Routine); Ordered 11/03/23 Ordered By: Clif Burgess Referrals: Juancho Loyd MD [Primary Care Provider] - 1 week Patient Instructions: Hyperkalemia (ED), Shortness of Breath (ED) Activity Restrictions/Additional Instructions: Your evaluation in ER that included lab work and chest x-ray was essentially unremarkable, your white count was actually lower than normal at 32, hemoglobin was up to 9.7, potassium is up at 5.6 every have dialysis today which they can dialyze at off. Your chest x-ray was essentially unremarkable and unchanged. The mean to pulling a little bit of extra fluid off at dialysis today. You are back down to your baseline 2 L of oxygen and appear to be stable. He will be discharged home to go to dialysis today and follow-up with your family practice doctor within next 7 days for further evaluation and treatment. Once her chest x-ray is read by the radiologist if he sees anything different we will call you with the results. Coding Level of Care Code ED Admitting Clerk for Ivett Koo
--- NOTE | 2023-11-03 03:31 | XRR_ITS ---
PROCEDURE INFORMATION: Exam: XR Chest Exam date and time: 11/03/2023 3:46 AM Age: 77 years old Clinical indication: Dyspnea TECHNIQUE: Imaging protocol: Radiologic exam of the chest. Views: 1 view. COMPARISON: CR (CHEST, ) 10/18/2023 5:02 AM FINDINGS: Lungs: There has been interval increase in airspace opacification of the retrocardiac and left lower lobe. There has been interval increase in reticular airspace infiltration of the right middle and right lower lobe. Residual lung franklin demonstrate interstitial coarsening Pleural spaces: Stable blunting of the bilateral costophrenic angles. Heart/Mediastinum: Cardiomediastinal silhouette is stable. Bones/joints: Diffuse degenerative change of the osseous structures without acute finding. XR/XR chest 1V portable [id number] IMPRESSION: 1. Interval increase in airspace opacification of the bilateral lower lung franklin, [id number]-right, concerning for volume overload. Superimposed infection cannot be excluded, correlate clinically. 2. Qwki-yophwbe-zscq-right pleural effusions which are grossly stable from comparison.
[2023-11-03 03:53] LABS: Hematocrit 31.1 % (36-47); Mean Corpuscular HGB Conc 31.2 g/dL (30-55); Mean Corpuscular Hemoglobin 28.8 pg (27-33); Mean Corpuscular Volume 92.3 fl (85-98); Mean Platelet Volume 10.2 fL (7.4-10.4); Platelet Count 744 10^3/cmm (157-399); Red Blood Count 3.37 10^6/uL (3.85-5.65); Red Cell Distribution Width 19.2 % (12.1-15.1)
[2023-11-03 04:16] LABS: Slide Review Slide Review Perform
[2023-11-03 04:17] LABS: Absolute Eosinophils 3.3 10^3/cmm (0.0-0.7); Absolute Neutrophil 21.9 10^3/cmm (1.4-6.5); Absolute Segmented Neutrophil 20.6 10/cmm (1.6-7.1); Band Neutrophils Absolute 1.3 10^3/cmm (0.0-1.2); Eosinophils 10 %; Lymphocytes 14 %; Platelet Estimate Increased (Normal); Segmented Neutrophils 63 %; Total Cells Counted 100 (0-100)
[2023-11-03 04:18] LABS: Hypersegmented Polys 1+; Smudge Cells Trace
[2023-11-03 04:20] LABS: Albumin Level 3.4 g/dL (3.5-5.2); Alkaline Phosphatase 144 U/L (35-105); Anion Gap 16.6 (5-19); Blood Urea Nitrogen 48 mg/dL (8-23); Calcium 9.3 mg/dL (8.5-10.5); Carbon Dioxide 34 mmol/L (22-29); Chloride 97 mmol/L (98-107); Creatinine Clr Calc Pharmacy 14.2846; Globulin 3.2 g/dL (1.3-4.6); Glucose 194 mg/dL (65-115); Osmolality Calculated 312 mOsm/kg (285-295); Potassium 5.6 mmol/L (3.5-5.1); Sodium 142 mmol/L (136-145); Total Bilirubin 0.3 mg/dL (0.15-1.2); Total Protein 6.6 g/dL (6.6-8.7)
[2023-11-03 04:26] LABS: White Blood Count 32.73 10^3/uL (3.29-11.43)
[2023-11-03 04:44] LABS: Alanine Aminotransferase 20 U/L (0-33); Aspartate Amino Transferase 5 U/L (0-32); NT Pro B Type Natriuretic Pept 44363 pg/mL (0-450)
== END 2023-11-03 07:44 | disposition home or self-care (01) ==
PROVIDERS: Emergency Provider Emergency Medicine; PCP Family Medicine
DX: R06.02 Shortness of breath (principal); E87.5 Hyperkalemia; I13.2 Hypertensive heart and chronic kidney disease with heart failure and with stage 5 chronic kidney disease, or end stage renal disease; E11.22 Type 2 diabetes mellitus with diabetic chronic kidney disease; N18.6 End stage renal disease; I50.9 Heart failure, unspecified; Z99.2 Dependence on renal dialysis
CPT/HCPCS: 36415; 71045; 80053; 83880; 85007; 85025; 93005; 99285

== ENCOUNTER 2023-11-07 10:46 | Oncology outpatient (recurring) (ONCR) | payer MEDICARE, SELFPAY ==
[2023-11-07 11:11] LABS: Mean Corpuscular HGB Conc 31.7 g/dL (30-55); Mean Corpuscular Hemoglobin 29.2 pg (27-33); Mean Corpuscular Volume 92.1 fl (85-98); Mean Platelet Volume 10.7 fL (7.4-10.4); Platelet Count 687 10^3/cmm (157-399); Red Blood Count 3.15 10^6/uL (3.85-5.65); Red Cell Distribution Width 18.6 % (12.1-15.1); White Blood Count 16.84 10^3/uL (3.29-11.43)
[2023-11-07 11:29] LABS: Alanine Aminotransferase 10 U/L (0-33); Albumin Level 3.3 g/dL (3.5-5.2); Alkaline Phosphatase 108 U/L (35-105); Anion Gap 16.6 (5-19); Aspartate Amino Transferase 9 U/L (0-32); Blood Urea Nitrogen 39 mg/dL (8-23); Calcium 9.1 mg/dL (8.5-10.5); Carbon Dioxide 31 mmol/L (22-29); Chloride 95 mmol/L (98-107); Glucose 239 mg/dL (65-115); Lactate Dehydrogenase 307 U/L (135-214); Osmolality Calculated 303 mOsm/kg (285-295); Potassium 4.6 mmol/L (3.5-5.1); Sodium 138 mmol/L (136-145); Total Bilirubin 0.4 mg/dL (0.15-1.2); Total Protein 6.3 g/dL (6.6-8.7)
[2023-11-07 11:52] LABS: Slide Review Slide Review Perform
[2023-11-07 11:53] LABS: Absolute Eosinophils 1.3 10^3/cmm (0.0-0.7); Absolute Neutrophil 11.5 10^3/cmm (1.4-6.5); Absolute Segmented Neutrophil 10.8 10/cmm (1.6-7.1); Anisocytosis 1+; Band Neutrophils Absolute 0.7 10^3/cmm (0.0-1.2); Basophils Absolute 0.8 10^3/cmm (0.0-0.2); Eosinophils 8 %; Giant Platelets 1+; Lymphocytes 14 %; Lymphocytes Absolute 2.7 10^3/cmm (1.2-3.4); Monocytes Absolute 0.2 10^3/cmm (0.1-0.6); Platelet Estimate Increased (Normal); Segmented Neutrophils 64 %; Total Cells Counted 100 (0-100)
== END 2023-11-24 23:59 | disposition home or self-care (01) ==
LOC: ONCMED 10:47
PROVIDERS: PCP Family Medicine; Visit Provider Internal Medicine
DX: C92.10 Chronic myeloid leukemia, BCR/ABL-positive, not having achieved remission
CPT/HCPCS: 36415; 80053; 83615; 85007; 85025

== ENCOUNTER 2023-11-15 07:02 | Emergency (ER) | payer MEDICARE, SELFPAY ==
[2023-11-15 07:03] VITALS: BP 162/99; PULSE 80; TEMP 36.9; O2SAT 99; BMI 30.4
--- NOTE | 2023-11-15 07:11 | ECG_ITS ---
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 Measurements Intervals [place] Rate: 81 P: 0 MI: 0 QRS: 109 QRSD: 101 T: 39 QT: 365 QTc: 425 Interpretive Statements Sinus rhythm with a first-degree AV block, occasional PACs and PVCs RIGHT AXIS DEVIATION [QRS AXIS > 100] NONSPECIFIC ST & T-WAVE ABNORMALITY Compared to ECG 11/03/2023 03:28:01 Ventricular premature complex(es) now present Aberrant conduction of supraventricular beat(s) now present T-wave abnormality now present Intraventricular conduction delay no longer present ST (T wave) deviation no longer present Electronically Signed On 11-15-2023 18:10:39 CDT by Betzy Dorantes M.D. [email or web address]
[2023-11-15 07:12] VITALS: PULSE 89; RESP 25; O2SAT 99
--- NOTE | 2023-11-15 07:52 | ED_ITS ---
HPI - SOB/Dyspnea 2 General: Chief Complaint: Shortness of Breath/Dyspnea Stated Complaint: SOB Time Seen by Provider: 11/15/23 07:32 Source: patient Mode of arrival: EMS Limitations: no limitations History of Present Illness: HPI Narrative: Patient was transported to the emergency room by EMS because of sensation of shortness of breath. She states this bother through the night. She states that she is also had associated cough which has been nonproductive in nature. She denies history of COPD. She denies concomitant fever. She denies concomitant chest pain. She does have known coronary disease had stent placed in August of this year at this facility. She has a end-stage renal disease and gets Monday dialysis. She stated she got dialyzed on Monday without any sequelae. She she did have some bruising in her left arm around her access site. She denies any known exposure to infectious disease. She has had normal immunizations up to schedule. She normally wears oxygen at 3 L and has been using 4 L since this morning. MD elicited complaint: shortness of breath and cough Pertinent past history: congestive heart failure Severity: moderate Relieving factors: oxygen Known history of: congestive heart failure Associated symptoms: Reports cough; Deny abdominal pain, chest pain, extremity pain, fever(s), nausea, palpitations or vomiting Review of Systems 2 Const: Denies: fever(s) or chills Eyes: Denies: change in vision ENMT: Denies: throat pain, odynophagia, nasal discharge or nasal congestion Card: Denies: chest pain, palpitations or irregular heart rhythm Resp: Reports: dyspnea and non-productive cough GI: Denies: abdominal pain, nausea or vomiting : Denies: flank pain Musc: Denies: neck pain, back pain, extremity pain or extremity swelling Skin/Breast: Denies: rash Neuro: Denies: headache(s), numbness in extremities or weakness in extremities Psych: Denies: anxiety or depression PFSH ED 2 PFSH: Medical History Chronic myeloid leukemia Leukocytosis Thrombocytosis ESRD on hemodialysis Diabetes Hypertension Congestive heart failure Acute exacerbation of CHF (congestive heart failure) Takotsubo cardiomyopathy -had extensive workup done in [facility] in [place] in 06/2019; records reviewed -Echo with EF=43%, LVH, noted distal septal, apical and anterolateral hypokinesia/apical ballooning consistent with Takotsubo cardiomyopathy; mild MR. No mention of stress testing or cardiac cath. 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; s/p toe amputations due to diabetic foot infections Hypertension Surgical History S/P hemodialysis catheter insertion (09/25/20) History of cataract surgery History of surgery on arm left arm, due to extravasation History of drainage of abscess left vulvar/perineal area History of bladder suspension procedure History of hernia repair History of total hysterectomy History of cholecystectomy History of appendectomy 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 Family History Father CAD (coronary artery disease) by report, she never knew him Mother Breast cancer Grandmother Breast cancer Denies family history of Colon cancer Diabetes Hypertension Stroke Social History Smoking and tobacco/nicotine status: never used tobacco/nicotine Alcohol intake: current Alcohol intake frequency: holidays/special occasions only Substance/Drug Use: never Current occupational status: disabled Physical Exam 2 Narrative: EXAM NARRATIVE: She is alert able to answer questions in complete sentences without dyspnea. Cooperative Const: COMMON NORMALS: no acute distress, patient oriented x3 and alert G ENERAL APPEARANCE: cooperative NUTRITIONAL APPEARANCE: overweight HENMT: COMMON NORMALS: normocephalic, Normal nasal mucous membranes and turbinates present, moist oral mucous membranes and oropharynx normal HEAD & SCALP: normocephalic NOSE: Normal nasal mucous membranes and turbinates present Eye: COMMON NORMALS: Equal, round and reactive pupils present and EOMs intact bilaterally PUPIL: Yes Equal, round and reactive pupils present Neck/C-Spine: COMMON NORMALS: full ROM, no lymphadenopathy, no JVD and No carotid bruits Chest: COMMONS NORMALS: normal inspection of the chest Resp: COMMON NORMALS: normal respiratory effort and No retractions A USCULTATION: crackles and diminished lung sounds Cardio: COMMON NORMALS: no JVD, regular rate, regular rhythm, No murmurs present (Cardio) and Peripheral pulses 2+ throughout RATE: regular rate R HYTHM: regular rhythm PERIPHERAL PULSES: Peripheral pulses 2+ throughout GI: COMMON NORMALS: Normal to inspection, nondistended, normoactive bowel sounds present, Soft to palpation and non-tender PALPATION: Yes Soft to palpation : COMMON NORMALS: Yes no CVA tenderness BLADDER/KIDNEY EXAM: Yes no CVA tenderness Back/Pelvis: COMMON NORMALS: no CVA tenderness, thoracic and lumbar spine normal to inspection, no thoracic nor lumbar tenderness and thoraco-lumbar ROM normal Extremity: COMMON NORMALS: normal to inspection, full ROM, capillary refill normal and no calf tenderness Neuro: COMMON NORMALS: patient oriented x3, moves all extremities, no focal motor deficits and no sensory deficits noted SENSORIUM/ORIENTATION: Yes alert Psych: COMMON NORMALS: mental status grossly normal Skin: COMMON NORMALS: no rashes or lesions noted and no wounds GENERAL SKIN EXAM: no rashes or lesions noted Course 2 Reevaluation(s): Reevaluation #1: The patient is clinically stable. Her chest x-ray is consistent pulmonary congestion. Her troponins are unchanged and certainly elevated due to her chronic renal failure. No evidence of infection at this time she has a leukocytosis but does carry a leukocytosis chronically. No evidence at this time to suggest ACS or other emergent condition however she does have fluid overload and is scheduled for dialysis today. Will plan on getting her to dialysis and see if that resolves any residual fluid issues. Patient is comfortable with that plan. Time: 10:35 Vital Signs: Vital signs: Vital Signs Temperature 98.4 F 11/15/23 07:03 Pulse Rate 76 11/15/23 09:00 Respiratory Rate 18 11/15/23 09:00 Blood Pressure 172/71 11/15/23 09:00 Pulse Oximetry 96 11/15/23 09:00 Oxygen Delivery Me thod Nasal Cannula 11/15/23 09:00 Oxygen Flow Rate 4 11/15/23 07:12 MDM - SOB/Dyspnea Medical Decision Making This patient presented to our emergency department from home because she felt more short of breath duration of just today. She is a end-stage renal disease on hemodialysis and scheduled for dialysis today. She denies any concomitant fever or chest pain. Obviously the concern was where she having possible ACS, versus CHF versus pneumonia or other potential etiologies of her subjective symptoms. Workup was initiated to establish or rule out possible causes. Her initial troponin was elevated which is not surprising given her end-stage renal disease. Her BNP was also elevated concomitant with the same potential etiology. Chest x-ray did reveal some increased pulmonary congestion without infiltrate. Repeat serial troponins and EKGs revealed no evidence of ongoing ischemia and her troponins were stable. It was felt that this patient would benefit at this time from hemodialysis and then if her symptoms were not abated then further evaluation in the emergency department. She is being discharged in stable condition to her usual dialysis facility. Medical Records I reviewed the patient's medical records. Prior history of leukocytosis. Lab Data I reviewed the patient's lab results. 11/15/23 07:15 11/15/23 07:15 Labs/Radiology: Radiology Impressions Chest X-Ray 11/15/23 07:58 IMPRESSION: Worsening CHF. Laboratory Results WBC 18.70 10^3/uL (3.29-11.43) H 11/15/23 07:15 RBC 3.21 10^6/uL (3.85-5.65) L 11/15/23 07:15 Hgb 9.30 g/dL (11.27-16.99) L 11/15/23 07:15 Hct 29.8 % (36-47) L 11/15/23 07:15 MCV 92.8 fl (85-98) 11/15/23 07:15 MCH 29.0 pg (27-33) 11/15/23 07:15 MCHC 31.2 g/dL (30-55) 11/15/23 07:15 RDW 17.8 % (12.1-15.1) H 11/15/23 07:15 Plt Count 813 10^3/cmm (157-399) H 11/15/23 07:15 MPV 11.6 fL (7.4-10.4) H 11/15/23 07:15 Neut % (Auto) 71.1 % 11/15/23 07:15 Lymph % (Auto) 11.7 % 11/15/23 07:15 [place] % (Auto) 2.8 % 11/15/23 07:15 Eos % (Auto) 6.4 % 11/15/23 07:15 Baso % (Auto) 6.2 % 11/15/23 07:15 Neut # (Auto) 13.31 10^3/uL (1.8-7.7) H 11/15/23 07:15 Lymph # (Auto) 2.2 10^3/uL (0.8-4.8) 11/15/23 07:15 [place] # (Auto) 0.5 10^3/uL (0.2-0.9) 11/15/23 07:15 Eos # (Auto) 1.2 10^3/uL (0.0-0.8) H 11/15/23 07:15 Baso # (Auto) 1.2 10^3/uL (0.0-0.1) H 11/15/23 07:15 Nucleated RBC % (auto) 0 % 11/15/23 07:15 Nucleated RBCs # 0.0 /100WBC 11/15/23 07:15 Sodium 139 mmol/L (136-145) 11/15/23 07:15 Potassium 4.1 mmol/L (3.5-5.1) 11/15/23 07:15 Chloride 95 mmol/L (98-107) L 11/15/23 07:15 Carbon Dioxide 31 mmol/L (22-29) H 11/15/23 07:15 Anion Gap 17.1 (5-19) 11/15/23 07:15 BUN 43 mg/dL (8-23) H 11/15/23 07:15 Creatinine 3.5 mg/dL (0.5-0.9) H 11/15/23 07:15 GFR Calculation Not Reportable 11/15/23 07:15 Glucose 163 mg/dL (65-115) H 11/15/23 07:15 Calculated Osmolality 302 mOsm/kg (285-295) H 11/15/23 07:15 Calcium 8.8 mg/dL (8.5-10.5) 11/15/23 07:15 Magnesium 2.0 mg/dL (1.7-2.3) 11/15/23 07:15 Total Bilirubin 0.4 mg/dL (0.15-1.2) 11/15/23 07:15 AST 12 U/L (0-32) 11/15/23 07:15 ALT 9 U/L (0-33) 11/15/23 07:15 Alkaline Phosphatase 125 U/L (35-105) H 11/15/23 07:15 Troponin T Baseline 206 ng/L (0-10) H* 11/15/23 07:15 Troponin T 120 Minute 200.0 ng/L (0-10) H 11/15/23 09:18 Delta Troponin T -6.0 ABS# (0-10) L 11/15/23 09:18 NT-Pro-B Natriuret Pep 84952 pg/mL (0-450) H 11/15/23 07:15 Total Protein 6.1 g/dL (6.6-8.7) L 11/15/23 07:15 Albumin 3.6 g/dL (3.5-5.2) 11/15/23 07:15 Globulin 2.5 g/dL (1.3-4.6) 11/15/23 07:15 All radiology interpretation(s) finalized by discharge EKG Data EKG 1: I personally reviewed and interpreted this EKG as follows: Interpretation: Review of the patient's EKG reveals a ventricular rate of 81 bpm. RI interval is indeterminate suggestive of atrial fibrillation. She has normal QRS and normal corrected QT interval. No acute ST-T wave changes. Discharge Plan Discharge Patient Disposition: Home Clinical Impression: End-stage renal disease on hemodialysis, Chronic CHF (congestive heart failure) Condition: Stable Prescriptions: No Action bosutinib 100 mg capsule 200 mg PO DAILY Qty: 60 3RF Rx Instructions: administer with meal/food; swallow whole OR open/mix in yogurt/applesauce; do not crush/chew Macular Vitamin 500-5-1 mcg-mg-mg tablet 1 tab PO QAM alpha lipoic acid 100 mg capsule 100 mg PO DAILY sertraline 100 mg tablet 100 mg PO QAM Qty: 90 1RF ondansetron HCl 4 mg tablet 4 mg PO Q6H PRN (Reason: nausea and vomiting) Qty: 30 1RF (DME) True Metrix Level 1 Solution See Rx Instructions .Route Qty: 1 11RF Rx Instructions: As directed with True metrix meter (DME) True Metrix Glucose Test Strip Strip See Rx Instructions .Route Qty: 300 3RF Rx Instructions: to use in true metrix meter TID 90 day supply (DME) lancets [TRUEplus Lancets] 33 gauge misc See Rx Instructions .Route Qty: 300 3RF Rx Instructions: to use TID to check blood sugar 90 day supply carvedilol 3.125 mg tablet 3.125 mg PO BID@ Qty: 180 3RF Novolog FlexPen U-100 Insulin 100 unit/mL (3 mL) insulin pen See Rx Instructions .ROUTE .COMPLEX Qty: 30 3RF Dose Instruction: INJECT 5-10 UNITS UNDER THE SKIN PER SLIDING SCALE TWICE DAILY Rx Instructions: INJECT 5-10 UNITS UNDER THE SKIN PER SLIDING SCALE TWICE DAILY folic acid 1 mg tablet 1 mg PO DAILY Qty: 30 2RF mecobalamin (vitamin B12) 1,000 mcg tablet,disintegrating 1,000 mcg sublingual QAM Qty: 30 0RF sevelamer carbonate 2.4 gram powder in packet 7.2 g PO TID atorvastatin 40 mg tablet 40 mg PO BEDTIME ergocalciferol (vitamin D2) 1,250 mcg (50,000 unit) capsule 1,250 mcg PO Q7D clopidogrel 75 mg tablet 75 mg PO DAILY Tasigna 150 mg capsule See Rx Instructions .ROUTE .COMPLEX Rx Instructions: TAKE TWO CAPSULES BY MOUTH EVERY TWELVE HOURS (must be take ON EMPTY stomach; no food AT least TWO hours BEFORE OR ONE hour AFTER DOSE) aspirin 81 mg tablet,delayed release (DR/EC) 81 mg PO DAILY Qty: 30 0RF insulin detemir U-100 100 unit/mL (3 mL) insulin pen 20 unit SUBCUT QPM bumetanide 2 mg tablet 2 mg PO DAILY Qty: 5 0RF Discharge Orders: Discharge ED (Routine); Ordered 11/15/23 Ordered By: Harsh Pablo Referrals: Juancho Loyd MD [Primary Care Provider] - Discharge Diet: Usual diet and Low Salt Discharge Activity: Resume usual activity Patient Instructions: Opioid Safety, Pain Management Activity Restrictions/Additional Instructions: Your evaluation today did not reveal any evidence you are having a heart attack or pneumonia or other serious condition but you do have increased fluid and pulmonary congestion. The treatment for that condition and yours clinical picture is dialysis. We are planning on making that occur for you at your usual facility. If after that dialysis you are still having issues we are happy to reevaluate you in the emergency department. Coding Level of Care Code ED Braille Coder for Ivett Koo
--- NOTE | 2023-11-15 07:58 | XRR_ITS ---
PROCEDURE INFORMATION: Exam: XR Chest Exam date and time: 11/15/2023 8:05 AM Age: 78 years old Clinical indication: Shortness of breath; Additional info: SOB TECHNIQUE: Imaging protocol: Radiologic exam of the chest. Views: 1 view. COMPARISON: CR (CHEST, ) 11/03/2023 3:46 AM FINDINGS: Lungs: Mild vascular engorgement with interstitial and alveolar edema and bilateral pleural effusions. Congestive heart failure is present. Pleural spaces: See Lungs finding. Heart/Mediastinum: See Vasculature finding. Vasculature: Mild cardiomegaly and uncoiling of the thoracic aorta. Bones/joints: Unremarkable. XR/XR chest 1V portable [id number] IMPRESSION: Worsening CHF.
[2023-11-15 08:06] LABS: Basophils # 1.2 10^3/uL (0.0-0.1); Basophils % 6.2 %; Eosinophils # 1.2 10^3/uL (0.0-0.8); Eosinophils % 6.4 %; Hematocrit 29.8 % (36-47); Lymphocytes # 2.2 10^3/uL (0.8-4.8); Lymphocytes % 11.7 %; Mean Corpuscular HGB Conc 31.2 g/dL (30-55); Mean Corpuscular Volume 92.8 fl (85-98); Mean Platelet Volume 11.6 fL (7.4-10.4); Monocytes # 0.5 10^3/uL (0.2-0.9); Monocytes % 2.8 %; Neutrophils # 13.31 10^3/uL (1.8-7.7); Neutrophils % 71.1 %; Nucleated Red Blood Cells % 0 %; Platelet Count 813 10^3/cmm (157-399); Red Blood Count 3.21 10^6/uL (3.85-5.65); Red Cell Distribution Width 17.8 % (12.1-15.1)
[2023-11-15 08:20] LABS: Troponin(5th) Baseline 206 ng/L (0-10)
[2023-11-15 08:25] LABS: Alanine Aminotransferase 9 U/L (0-33); Albumin Level 3.6 g/dL (3.5-5.2); Alkaline Phosphatase 125 U/L (35-105); Anion Gap 17.1 (5-19); Aspartate Amino Transferase 12 U/L (0-32); Blood Urea Nitrogen 43 mg/dL (8-23); Calcium 8.8 mg/dL (8.5-10.5); Carbon Dioxide 31 mmol/L (22-29); Chloride 95 mmol/L (98-107); Creatinine Clr Calc Pharmacy 14.0957; Globulin 2.5 g/dL (1.3-4.6); Glucose 163 mg/dL (65-115); Osmolality Calculated 302 mOsm/kg (285-295); Potassium 4.1 mmol/L (3.5-5.1); Sodium 139 mmol/L (136-145); Total Bilirubin 0.4 mg/dL (0.15-1.2); Total Protein 6.1 g/dL (6.6-8.7)
[2023-11-15 08:42] VITALS: BP 172/71; PULSE 76; RESP 30; O2SAT 96
[2023-11-15 08:48] LABS: NT Pro B Type Natriuretic Pept 37135 pg/mL (0-450)
[2023-11-15 09:00] VITALS: BP 172/71; PULSE 76; RESP 18; O2SAT 96
[2023-11-15 10:30] VITALS: BP 150/66; PULSE 82; RESP 27; O2SAT 98
[2023-11-15 11:01] VITALS: PULSE 86; O2SAT 100
== END 2023-11-15 12:00 | disposition home or self-care (01) ==
PROVIDERS: Emergency Provider Emergency Medicine; PCP Family Medicine
DX: E11.22 Type 2 diabetes mellitus with diabetic chronic kidney disease (principal); I13.2 Hypertensive heart and chronic kidney disease with heart failure and with stage 5 chronic kidney disease, or end stage renal disease; I50.9 Heart failure, unspecified; N18.6 End stage renal disease; Z99.2 Dependence on renal dialysis; Z79.82 Long term (current) use of aspirin; Z79.4 Long term (current) use of insulin; Z79.02 Long term (current) use of antithrombotics/antiplatelets
CPT/HCPCS: 36415; 71045; 80053; 83735; 83880; 84484; 85025; 93005; 99285

== ENCOUNTER 2023-11-15 15:42 | Emergency (ER) | payer MEDICARE, SELFPAY ==
[2023-11-15 15:53] VITALS: BP 128/90; PULSE 94; TEMP 36.6; O2SAT 98; BMI 30.4
--- NOTE | 2023-11-15 15:58 | CTR_ITS ---
PROCEDURE INFORMATION: Exam: CTA Chest With Contrast Exam date and time: 11/15/2023 4:34 PM Age: 78 years old Clinical indication: Dyspnea; Additional info: Increased SOB after dialysis tx today TECHNIQUE: Imaging protocol: Computed tomographic angiography of the chest with contrast. Exam focused on the arteries. 3D rendering (Not supervised by radiologist): MIP and/or 3D reconstructed images were created by the technologist. Radiation optimization: All CT scans at this facility use at least one of these dose optimization techniques: automated exposure control; mA and/or kV adjustment per patient size (includes targeted exams where dose is matched to clinical indication); or iterative reconstruction. Contrast material: OMNI 350; Contrast volume: 100 ml; Contrast route: INTRAVENOUS (IV); COMPARISON: CT angio chest PE protcl [id number] 07/07/2023 7:22 AM RADIATION DOSE METRICS: Total DLP (mGy-cm): 481.74 FINDINGS: Pulmonary arteries: Enlarged main pulmonary artery suggestive of pulmonary arterial hypertension. No pulmonary emboli. Aorta: Unremarkable. No aortic aneurysm. No aortic dissection. Lungs: Moderate interlobular septal thickening. Mild diffuse hazy interstitial edema. Moderate right effusion is new from 09/10/2023 and mildly increased from 11/03/2023 radiograph. Underlying [id number] compressive atelectasis in the right lower lobe is new. Small left pleural effusion left basilar atelectasis and patchy. Wall calcification is unchanged from 09/10/2023. 5 mm subpleural nodule in the right middle lobe (series 4, image 32) is new from the prior CT. 6 mm subpleural nodule in the right middle lobe (image 39) is also new. Pleural spaces: See Lungs finding. Heart: Mild to moderate cardiomegaly has increased. Extensive mitral annular calcification, coronary calcification and aortic leaflet calcification again noted. Trace pericardial effusion. Lymph nodes: Several mildly enlarged mediastinal lymph nodes and hilar lymph nodes are likely reactive, mildly increased from 09/10/2023, up to 1.7 cm. Liver: Mild hepatomegaly with slight contour lobulation/early cirrhotic change. Bones/joints: Moderate to advanced degenerative multilevel endplate osteophytosis and discogenic changes especially in the mid to lower thoracic spine. Soft tissues: Unremarkable. CT/CT angio chest PE protcl [id number] IMPRESSION: 1. No evidence of pulmonary embolism. Enlarged pulmonary artery suggesting pulmonary hypertension. 2. Features of increased CHF/volume overload compared to 09/10/2023 CT 11/03/2023 chest x-ray. New right pleural effusion and moderate lower lobe atelectasis. 3. A few new subpleural right middle lobe nodules up to 6 mm, likely inflammatory. Follow-up CT in 3-6 months recommended according to the Fleischner guidelines. Mild mediastinal adenopathy may be concurrently reassessed. 4. Mild hepatomegaly with suggestion of early cirrhotic change.
--- NOTE | 2023-11-15 15:59 | W.ED.SOB ---
HPI - SOB/Dyspnea General: Chief Complaint: Shortness of Breath/Dyspnea Stated Complaint: SOB Time Seen by Provider: 11/15/23 15:45 Source: patient Mode of arrival: EMS Limitations: no limitations History of Present Illness: HPI Narrative: Patient returns from dialysis. She was seen here this morning and found to be stable and some evidence of fluid overload and was sent to her usual dialysis appointment to have fluid pulled off and see if she was improved. Apparently she had desaturation while at dialysis requiring increased oxygen and was returned back to the emergency department. He denies any chest pain. She states she feels at her normal state of health at this point. At the time of my evaluation she was on 3 L denied any shortness of breath. MD elicited complaint: shortness of breath Pertinent past history: congestive heart failure Severity: mild Associated symptoms: Deny abdominal pain, chest pain, extremity pain, fever(s), nausea, palpitations or vomiting Review of Systems Const: Denies: fever(s) or chills ENMT: Denies: throat pain, odynophagia, nasal discharge or nasal congestion Card: Denies: chest pain or palpitations Resp: Denies: productive cough or non-productive cough GI: Denies: abdominal pain, nausea, vomiting or hematemesis : Denies: flank pain, difficulty voiding, dysuria or urinary frequency Musc: Denies: neck pain, back pain or extremity pain Neuro: Denies: headache(s), numbness in extremities or weakness in extremities Hliario/Lymph: Reports: easy bruising PFSH ED PFSH: Medical History Chronic myeloid leukemia Leukocytosis Thrombocytosis ESRD on hemodialysis Diabetes Hypertension Congestive heart failure Acute exacerbation of CHF (congestive heart failure) Takotsubo cardiomyopathy -had extensive workup done in [facility] in [place] in 06/2019; records reviewed -Echo with EF=43%, LVH, noted distal septal, apical and anterolateral hypokinesia/apical ballooning consistent with Takotsubo cardiomyopathy; mild MR. No mention of stress testing or cardiac cath. 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; s/p toe amputations due to diabetic foot infections Hypertension Surgical History S/P hemodialysis catheter insertion (09/25/20) History of cataract surgery History of surgery on arm left arm, due to extravasation History of drainage of abscess left vulvar/perineal area History of bladder suspension procedure History of hernia repair History of total hysterectomy History of cholecystectomy History of appendectomy 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 Family History Father CAD (coronary artery disease) by report, she never knew him Mother Breast cancer Grandmother Breast cancer Denies family history of Colon cancer Diabetes Hypertension Stroke Social History Smoking and tobacco/nicotine status: never used tobacco/nicotine Alcohol intake: current Alcohol intake frequency: holidays/special occasions only Substance/Drug Use: never Current occupational status: disabled Physical Exam Narrative: EXAM NARRATIVE: She is alert in no acute distress answers questions appropriately. Const: COMMON NORMALS: no acute distress, average body habitus and patient oriented x3 GENERAL APPEARANCE: cooperative and comfortable HENMT: COMMON NORMALS: normocephalic, Normal nasal mucous membranes and turbinates present, moist oral mucous membranes and oropharynx normal HEAD & SCALP: normocephalic NOSE: Normal nasal mucous membranes and turbinates present Eye: COMMON NORMALS: Equal, round and reactive pupils present and EOMs intact bilaterally PUPIL: Yes Equal, round and reactive pupils present Neck/C-Spine: COMMON NORMALS: full ROM, supple and no JVD Chest: COMMONS NORMALS: normal inspection of the chest and normal palpation of entire chest wall Resp: COMMON NORMALS: normal respiratory effort, No retractions, No use of accessory muscles and clear to auscultation bilaterally EFFORT & INSPECTION: Yes able to speak in complete sentences AUSCULTATION: clear to auscultation bilaterally Cardio: COMMON NORMALS: no JVD, regular rhythm, No murmurs present (Cardio) and Peripheral pulses 2+ throughout RHYTHM: regular rhythm PERIPHERAL PULSES: Peripheral pulses 2+ throughout GI: COMMON NORMALS: Normal to inspection, nondistended, normoactive bowel sounds present, Soft to palpation and non-tender PALPATION: Yes Soft to palpation : COMMON NORMALS: Yes no CVA tenderness BLADDER/KIDNEY EXAM: Yes no CVA tenderness Back/Pelvis: COMMON NORMALS: no CVA tenderness, thoracic and lumbar spine normal to inspection and no thoracic nor lumbar tenderness Extremity: COMMON NORMALS: full ROM, no calf tenderness and no pedal edema NARRATIVE EXTREMITY EXAM: She has a compression device on her left arm overlying her AV fistula dialysis access Neuro: COMMON NORMALS: patient oriented x3, moves all extremities, no focal motor deficits and no sensory deficits noted Psych: COMMON NORMALS: mental status grossly normal Skin: COMMON NORMALS: no rashes or lesions noted and turgor normal GENERAL SKIN EXAM: no rashes or lesions noted and turgor normal Course Reevaluation(s): Reevaluation #1: Patient remained stable. She is saturating saturating 96 to 98% on her normal 2 to 3 L of oxygen in the emergency department. Her CTA is reassuring without evidence of pulmonary embolus or other acute pathology. Discussed risks and benefits of continued observation versus discharge home with her routine care and then her routine hemodialysis on Monday. She voiced understanding agrees to that she would like to be discharged home if it is reasonable and I think is reasonable. Certainly we have not seen any evidence of hypoxia or desatting on her usual oxygen flow rate in the emergency department. She is previously worked up for any evidence of ACS which was negative at that time. We discussed return precautions and I emphasized the need for repeat dialysis on Monday due to her contrast load today. Time: 18:03 Vital Signs: Vital signs: Vital Signs Temperature 97.8 F 11/15/23 15:53 Pulse Rate 90 11/15/23 17:43 Respiratory Rate 12 11/15/23 17:43 Blood Pressure 141/84 11/15/23 16:00 Pulse Oximetry 98 11/15/23 17:43 Oxygen Delivery Me thod Nasal Cannula 11/15/23 17:43 Oxygen Flow Rate 3 11/15/23 17:43 MDM - SOB/Dyspnea Medical Decision Making This patient who has a history of chronic congestive heart failure as well as end-stage renal disease was seen earlier in the emergency department because of shortness of breath symptoms. She was evaluated at that time and found to have no evidence of ACS but did have fluid overload and therefore the plan was to send her to her routine dialysis and then if should her symptoms are resolved have her continue her usual care. She apparently had an episode of desaturation at the end of her dialysis run and was referred back to the emergency department for further evaluation. Because of her leukemia history and relative risk of thromboembolism a CTA for pulmonary embolus was obtained. CTA was reassuring. The patient remained stable and desired to be discharged from the emergency department. She will be hemodialyzed on Monday as other routine scheduled. Return precautions discussed. Medical Records I reviewed the patient's medical records. Laboratories available from visit earlier today are as noted.Studies were reviewed with the patient and his spouse and at this point we discussed the fact that it did not seem to be an acute process ongoing at this time to necessitate further emergency department observation admission etc. essentially unchanged from previous laboratories. She does have a chronic leukocytosis due to her leukemii Lab Data Labs/Radiology: Radiology Impressions Chest CTA 11/15/23 15:58 IMPRESSION: 1. No evidence of pulmonary embolism. Enlarged pulmonary artery suggesting pulmonary hypertension. 2. Features of increased CHF/volume overload compared to 09/10/2023 CT 11/03/2023 chest x-ray. New right pleural effusion and moderate lower lobe atelectasis. 3. A few new subpleural right middle lobe nodules up to 6 mm, likely inflammatory. Follow-up CT in 3-6 months recommended according to the Fleischner guidelines. Mild mediastinal adenopathy may be concurrently reassessed. 4. Mild hepatomegaly with suggestion of early cirrhotic change. All radiology interpretation(s) finalized by discharge EKG Data EKG 1: I personally reviewed and interpreted this EKG as follows: Interpretation: Her repeat EKG reveals a ventricular rate of 90 bpm consistent with atrial fibrillation. QRS duration is normal corrected QT intervals normal. [place] are normal. No acute ST-T wave changes noted. Discharge Plan Discharge Patient Disposition: Home Clinical Impression: Atrial fibrillation, chronic, End-stage renal disease on hemodialysis, Chronic CHF (congestive heart failure) Condition: Stable Prescriptions: No Action bosutinib 100 mg capsule 200 mg PO DAILY Qty: 60 3RF Rx Instructions: administer with meal/food; swallow whole OR open/mix in yogurt/applesauce; do not crush/chew Macular Vitamin 500-5-1 mcg-mg-mg tablet 1 tab PO QAM alpha lipoic acid 100 mg capsule 100 mg PO DAILY sertraline 100 mg tablet 100 mg PO QAM Qty: 90 1RF ondansetron HCl 4 mg tablet 4 mg PO Q6H PRN (Reason: nausea and vomiting) Qty: 30 1RF (DME) True Metrix Level 1 Solution See Rx Instructions .Route Qty: 1 11RF Rx Instructions: As directed with True metrix meter (DME) True Metrix Glucose Test Strip Strip See Rx Instructions .Route Qty: 300 3RF Rx Instructions: to use in true metrix meter TID 90 day supply (DME) lancets [TRUEplus Lancets] 33 gauge misc See Rx Instructions .Route Qty: 300 3RF Rx Instructions: to use TID to check blood sugar 90 day supply carvedilol 3.125 mg tablet 3.125 mg PO BID@ Qty: 180 3RF Novolog FlexPen U-100 Insulin 100 unit/mL (3 mL) insulin pen See Rx Instructions .ROUTE .COMPLEX Qty: 30 3RF Dose Instruction: INJECT 5-10 UNITS UNDER THE SKIN PER SLIDING SCALE TWICE DAILY Rx Instructions: INJECT 5-10 UNITS UNDER THE SKIN PER SLIDING SCALE TWICE DAILY folic acid 1 mg tablet 1 mg PO DAILY Qty: 30 2RF mecobalamin (vitamin B12) 1,000 mcg tablet,disintegrating 1,000 mcg sublingual QAM Qty: 30 0RF sevelamer carbonate 2.4 gram powder in packet 7.2 g PO TID atorvastatin 40 mg tablet 40 mg PO BEDTIME ergocalciferol (vitamin D2) 1,250 mcg (50,000 unit) capsule 1,250 mcg PO Q7D clopidogrel 75 mg tablet 75 mg PO DAILY Tasigna 150 mg capsule See Rx Instructions .ROUTE .COMPLEX Rx Instructions: TAKE TWO CAPSULES BY MOUTH EVERY TWELVE HOURS (must be take ON EMPTY stomach; no food AT least TWO hours BEFORE OR ONE hour AFTER DOSE) aspirin 81 mg tablet,delayed release (DR/EC) 81 mg PO DAILY Qty: 30 0RF insulin detemir U-100 100 unit/mL (3 mL) insulin pen 20 unit SUBCUT QPM bumetanide 2 mg tablet 2 mg PO DAILY Qty: 5 0RF Discharge Orders: Discharge ED (Routine); Ordered 11/15/23 Ordered By: Harsh Pablo Referrals: Juancho Loyd MD [Primary Care Provider] - Discharge Diet: Usual diet Discharge Activity: Increase activity as tolerated Patient Instructions: Opioid Safety, Pain Management Activity Restrictions/Additional Instructions: Continue all your usual medications. Continue your oxygen at the usual flow rate. Make sure you get hemodialysis on Monday as scheduled. If you develop any worsening symptoms such as shortness of breath chest chest pain or increased oxygen requirement approaching 4 L or greater return to the emergency department Coding Level of Care Code ED Material Mixer for Ivett Koo
[2023-11-15 16:00] VITALS: BP 141/84; PULSE 90; O2SAT 94
--- NOTE | 2023-11-15 16:04 | PC.NURSE ---
Pt on bedside monitor and storage bin tender
--- NOTE | 2023-11-15 16:06 | ECG_ITS ---
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 Measurements Intervals [place] Rate: 99 P: 0 VT: 0 QRS: 68 QRSD: 117 T: 51 QT: 340 QTc: 437 Interpretive Statements ATRIAL FIBRILLATION WITH ABERRANT CONDUCTION OR VENTRICULAR PREMATURE COMPLEXES MODERATE INTRAVENTRICULAR CONDUCTION DELAY [110+ ms QRS DURATION] NONSPECIFIC ST & T-WAVE ABNORMALITY ABNORMAL RHYTHM ECG Compared to ECG 11/15/2023 07:11:41 Intraventricular conduction delay now present Right-axis deviation no longer present T-wave abnormality still present Electronically Signed On 11-15-2023 18:14:18 CDT by Betzy Dorantes M.D. [id number]
[2023-11-15] MEDS: iohexol 350 mg/mL 500 mL Btl (per mL) IV (16:38)
[2023-11-15 17:43] VITALS: PULSE 90; RESP 12; O2SAT 98
[2023-11-15 18:00] VITALS: PULSE 95; O2SAT 96
[2023-11-15 18:57] VITALS: BP 139/84; PULSE 94; RESP 18; O2SAT 95
== END 2023-11-15 20:03 | disposition home or self-care (01) ==
PROVIDERS: Emergency Provider Emergency Medicine; PCP Family Medicine
DX: I48.20 Chronic atrial fibrillation, unspecified (principal); I13.2 Hypertensive heart and chronic kidney disease with heart failure and with stage 5 chronic kidney disease, or end stage renal disease; E11.22 Type 2 diabetes mellitus with diabetic chronic kidney disease; N18.6 End stage renal disease; I50.9 Heart failure, unspecified; Z99.2 Dependence on renal dialysis; Z85.6 Personal history of leukemia; Z79.02 Long term (current) use of antithrombotics/antiplatelets; Z79.82 Long term (current) use of aspirin; Z79.4 Long term (current) use of insulin
CPT/HCPCS: 71275; 93005; 99285; Q9967

== ENCOUNTER 2023-11-27 16:52 | Emergency (ER) | payer MEDICARE, SELFPAY ==
--- NOTE | 2023-11-27 16:54 | ECG_ITS ---
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 Measurements Intervals [place] Rate: 73 P: 0 MS: 0 QRS: 128 QRSD: 180 T: 4 QT: 439 QTc: 485 Interpretive Statements ATRIAL FIBRILLATION RIGHT AXIS DEVIATION [QRS AXIS > 100] INTRAVENTRICULAR CONDUCTION DELAY [130+ ms QRS DURATION] Compared to ECG 11/15/2023 16:06:14 Right-axis deviation now present Ventricular premature complex(es) no longer present Aberrant conduction of supraventricular beat(s) no longer present T-wave abnormality no longer present Electronically Signed On 11-28-2023 7:26:24 CDT by Bill Boston M.D. [id number]
--- NOTE | 2023-11-27 16:55 | XRR_ITS ---
PROCEDURE INFORMATION: Exam: XR Chest Exam date and time: 11/27/2023 4:58 PM Age: 78 years old Clinical indication: Shortness of breath; Prior surgery; Surgery date: 6+ months; Surgery type: Cardiac stent; Additional info: SOB TECHNIQUE: Imaging protocol: Radiologic exam of the chest. Views: 1 view. COMPARISON: CT angio chest PE protcl [id number] 11/15/2023 4:34 PM FINDINGS: Lungs: Bilateral basilar infiltrates persist. Pleural spaces: Slight increase in the right-sided pleural effusion. No significant change in the left-sided pleural effusion. Heart/Mediastinum: Unremarkable. No cardiomegaly. Bones/joints: Unremarkable. XR/XR chest 1V portable [id number] IMPRESSION: 1. Slight increase in the right-sided pleural effusion. No significant change in the left-sided pleural effusion. 2. Bilateral basilar infiltrates persist.
--- NOTE | 2023-11-27 17:04 | ECG_ITS ---
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 Measurements Intervals [place] Rate: 82 P: 78 VT: 257 QRS: 133 QRSD: 170 T: -9 QT: 419 QTc: 490 Interpretive Statements SINUS RHYTHM WITH SINUS ARRHYTHMIA WITH FIRST DEGREE AV BLOCK RIGHT AXIS DEVIATION [QRS AXIS > 100] INTRAVENTRICULAR CONDUCTION DELAY [130+ ms QRS DURATION] Compared to ECG 11/27/2023 17:04:15 First degree AV block now present Atrial fibrillation no longer present Electronically Signed On 11-28-2023 7:32:29 CDT by Bill Boston M.D. [id number]
--- NOTE | 2023-11-27 17:26 | ED_ITS ---
HPI - SOB/Dyspnea 2 General: Chief Complaint: Shortness of Breath/Dyspnea Stated Complaint: weakness/sob Time Seen by Provider: 11/27/23 16:54 Source: patient and EMS Mode of arrival: EMS Limitations: no limitations History of Present Illness: HPI Narrative: 78-year-old female who has a history of end-stage renal disease she is on 3 L of oxygen at all times at home. States that throughout the day today she states she is has not felt well states she has had some generalized weakness and is felt more short of breath than typical. She did receive dialysis today. Pulse ox here is 97% on her 3 L and she is in no distress able to speak in full senses she denies any cough denies any fever denies any chest pain Associated symptoms: Deny abdominal pain, chest pain, fever(s), nausea or vomiting Review of Systems 2 Const: Denies: fever(s), chills, body aches or change in appetite Eyes: Denies: eye discomfort ENMT: Denies: throat pain or dental pain Card: Denies: chest pain Resp: Reports: dyspnea GI: Denies: abdominal pain, nausea, vomiting or diarrhea : Denies: dysuria Musc: Denies: neck pain or back pain Skin/Breast: Denies: rash Neuro: Denies: headache(s) Psych: Denies: depression Hilario/Lymph: Denies: easy bruising All/Imm: Denies: urticaria PFSH ED 2 PFSH: Medical History Chronic myeloid leukemia Leukocytosis Thrombocytosis ESRD on hemodialysis Diabetes Hypertension Congestive heart failure Acute exacerbation of CHF (congestive heart failure) Takotsubo cardiomyopathy -had extensive workup done in [facility] in [place] in 06/2019; records reviewed -Echo with EF=43%, LVH, noted distal septal, apical and anterolateral hypokinesia/apical ballooning consistent with Takotsubo cardiomyopathy; mild MR. No mention of stress testing or cardiac cath. 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; s/p toe amputations due to diabetic foot infections Hypertension Surgical History S/P hemodialysis catheter insertion (09/25/20) History of cataract surgery History of surgery on arm left arm, due to extravasation History of drainage of abscess left vulvar/perineal area History of bladder suspension procedure History of hernia repair History of total hysterectomy History of cholecystectomy History of appendectomy 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 Family History Father CAD (coronary artery disease) by report, she never knew him Mother Breast cancer Grandmother Breast cancer Denies family history of Colon cancer Diabetes Hypertension Stroke Social History Smoking and tobacco/nicotine status: never used tobacco/nicotine Alcohol intake: current Alcohol intake frequency: holidays/special occasions only Substance/Drug Use: never Current occupational status: disabled Physical Exam 2 Const: COMMON NORMALS: patient oriented x3 HENMT: COMMON NORMALS: normocephalic and atraumatic HEAD & SCALP: n ormocephalic and atraumatic Eye: COMMON NORMALS: Equal, round and reactive pupils present and EOMs intact bilaterally PUPIL: Yes Equal, round and reactive pupils present Neck/C-Spine: COMMON NORMALS: full ROM and supple Chest: COMMONS NORMALS: normal inspection of the chest Resp: COMMON NORMALS: normal respiratory effort, No retractions, No use of accessory muscles and clear to auscultation bilaterally AUSCULTATION: clear to auscultation bilaterally Cardio: COMMON NORMALS: regular rate, regular rhythm and No murmurs present (Cardio) RATE: regular rate RHYTHM: regular rhythm GI: COMMON NORMALS: Normal to inspection, nondistended, normoactive bowel sounds present, Soft to palpation, non-tender and no masses PALPATION: Yes Soft to palpation Extremity: COMMON NORMALS: normal to inspection and full ROM Neuro: COMMON NORMALS: patient oriented x3, moves all extremities and no focal motor deficits Psych: COMMON NORMALS: mental status grossly normal, Normal thought process present and cooperative THOUGHT PROCESS: Normal thought process present Skin: COMMON NORMALS: no rashes or lesions noted and no wounds GENERAL SKIN EXAM: no rashes or lesions noted Course 2 Vital Signs: Vital signs: Vital Signs Temperature 97.6 F 11/27/23 17:31 Pulse Rate 73 11/27/23 20:00 Respiratory Rate 22 H 11/27/23 20:00 Blood Pressure 115/58 11/27/23 20:00 Pulse Oximetry 90 11/27/23 20:00 Oxygen Delivery Me thod Nasal Cannula 11/27/23 20:00 Oxygen Flow Rate 3 11/27/23 20:00 MDM - SOB/Dyspnea Medical Decision Making Patient presents here with dyspnea is chronic in nature she also has been feeling well after a fall having some slight back pain her imaging here is normal blood works normal she stable for discharge follow-up with PCP return if worsening she understands agrees to plan Medical Records I reviewed the patient's medical records. Lab Data I reviewed the patient's lab results. 11/27/23 18:16 11/27/23 18:16 Labs/Radiology: Radiology Impressions Chest X-Ray 11/27/23 16:55 IMPRESSION: 1. Slight increase in the right-sided pleural effusion. No significant change in the left-sided pleural effusion. 2. Bilateral basilar infiltrates persist. Lumbar Spine X-Ray 11/27/23 19:40 IMPRESSION: Degenerative spondylosis of the spine. No acute traumatic bony injury seen. Thoracic Spine X-Ray 11/27/23 19:40 IMPRESSION: Degenerative spondylosis. Nonspecific left basilar airspace disease and pleural effusion, detailed in separate radiograph for the chest. Laboratory Results WBC 19.82 10^3/uL (3.29-11.43) H 11/27/23 18:16 RBC 3.49 10^6/uL (3.85-5.65) L 11/27/23 18:16 Hgb 10.00 g/dL (11.27-16.99) L 11/27/23 18:16 Hct 32.3 % (36-47) L 11/27/23 18:16 MCV 92.6 fl (85-98) 11/27/23 18:16 MCH 28.7 pg (27-33) 11/27/23 18:16 MCHC 31.0 g/dL (30-55) 11/27/23 18:16 RDW 17.1 % (12.1-15.1) H 11/27/23 18:16 Plt Count 836 10^3/cmm (157-399) H 11/27/23 18:16 MPV 10.9 fL (7.4-10.4) H 11/27/23 18:16 Lymph % (Auto) Not Reportable 11/27/23 18:16 [place] % (Auto) Not Reportable 11/27/23 18:16 Lymph # (Auto) Not Reportable 11/27/23 18:16 [place] # (Auto) Not Reportable 11/27/23 18:16 Total Counted 100 (0-100) 11/27/23 18:16 Atypical Lymphs % 0.0 % (0-5) 11/27/23 18:16 Absolute Neutrophils 16.3 10^3/cmm (1.4-6.5) H 11/27/23 18:16 Segmented Neutrophils 81 % 11/27/23 18:16 Abs Segm Neuts (Man) 16.1 10/cmm (1.6-7.1) H 11/27/23 18:16 Band Neutrophils 1.0 % 11/27/23 18:16 Abs Band Neuts (Man) 0.2 10^3/cmm (0.0-1.2) 11/27/23 18:16 Absolute Lymphocytes 2.2 10^3/cmm (1.2-3.4) 11/27/23 18:16 Lymphocytes (Manual) 11 % 11/27/23 18:16 Monocytes (Manual) 2.0 % 11/27/23 18:16 Absolute Monocytes 0.4 10^3/cmm (0.1-0.6) 11/27/23 18:16 Eosinophils (Manual) 0 % 11/27/23 18:16 Absolute Eosinophils 0.0 10^3/cmm (0.0-0.7) 11/27/23 18:16 Basophils (Manual) 2.0 % 11/27/23 18:16 Absolute Basophils 0.4 10^3/cmm (0.0-0.2) H 11/27/23 18:16 Metamyelocytes 2.0 % 11/27/23 18:16 Myelocytes 1.0 % 11/27/23 18:16 Nucleated RBCs 1.0 /100WBC (0-1) 11/27/23 18:16 Platelet Estimate Increased (Normal) H 11/27/23 18:16 Giant Platelets Trace 11/27/23 18:16 Poikilocytosis Trace 11/27/23 18:16 PT 14.40 SECONDS (12.1-14.9) 11/27/23 18:16 INR 1.09 (0.8-1.2) 11/27/23 18:16 Sodium 138 mmol/L (136-145) 11/27/23 18:16 Potassium 3.7 mmol/L (3.5-5.1) 11/27/23 18:16 Chloride 96 mmol/L (98-107) L 11/27/23 18:16 Carbon Dioxide 34 mmol/L (22-29) H 11/27/23 18:16 Anion Gap 11.7 (5-19) 11/27/23 18:16 BUN 25 mg/dL (8-23) H 11/27/23 18:16 Creatinine 2.2 mg/dL (0.5-0.9) H 11/27/23 18:16 GFR Calculation Not Reportable 11/27/23 18:16 Glucose 147 mg/dL (65-115) H 11/27/23 18:16 Calculated Osmolality 293 mOsm/kg (285-295) 11/27/23 18:16 Calcium 8.6 mg/dL (8.5-10.5) 11/27/23 18:16 Total Bilirubin 0.3 mg/dL (0.15-1.2) 11/27/23 18:16 AST 15 U/L (0-32) 11/27/23 18:16 ALT 13 U/L (0-33) 11/27/23 18:16 Alkaline Phosphatase 110 U/L (35-105) H 11/27/23 18:16 NT-Pro-B Natriuret Pep 94450 pg/mL (0-450) H 11/27/23 18:16 Total Protein 6.6 g/dL (6.6-8.7) 11/27/23 18:16 Albumin 3.9 g/dL (3.5-5.2) 11/27/23 18:16 Globulin 2.7 g/dL (1.3-4.6) 11/27/23 18:16 All radiology interpretation(s) finalized by discharge EKG Data EKG 1: I personally reviewed and interpreted this EKG as follows: EKG Interpretation Date: 11/27/23 EKG interpretation time: 17:04 Interpretation: Afib hr [address] elevation qrs 180 qtc 465 Discharge Plan Discharge Patient Disposition: Home Clinical Impression: ESRD (end stage renal disease), Dyspnea Condition: Stable Prescriptions: No Action bosutinib 100 mg capsule 200 mg PO DAILY Qty: 60 3RF Rx Instructions: administer with meal/food; swallow whole OR open/mix in yogurt/applesauce; do not crush/chew Macular Vitamin 500-5-1 mcg-mg-mg tablet 1 tab PO QAM alpha lipoic acid 100 mg capsule 100 mg PO DAILY sertraline 100 mg tablet 100 mg PO QAM Qty: 90 1RF ondansetron HCl 4 mg tablet 4 mg PO Q6H PRN (Reason: nausea and vomiting) Qty: 30 1RF (DME) Portable oxygen concentrator INOGEN See Rx Instructions .ROUTE .MEDSUPPLY Qty: 1 0RF Rx Instructions: continuous use 2L NC (DME) True Metrix Level 1 Solution See Rx Instructions .Route Qty: 1 11RF Rx Instructions: As directed with True metrix meter (DME) True Metrix Glucose Test Strip Strip See Rx Instructions .Route Qty: 300 3RF Rx Instructions: to use in true metrix meter TID 90 day supply (DME) lancets [TRUEplus Lancets] 33 gauge misc See Rx Instructions .Route Qty: 300 3RF Rx Instructions: to use TID to check blood sugar 90 day supply carvedilol 3.125 mg tablet 3.125 mg PO BID@08, Qty: 180 3RF Novolog FlexPen U-100 Insulin 100 unit/mL (3 mL) insulin pen See Rx Instructions .ROUTE .COMPLEX Qty: 30 3RF Dose Instruction: INJECT 5-10 UNITS UNDER THE SKIN PER SLIDING SCALE TWICE DAILY Rx Instructions: INJECT 5-10 UNITS UNDER THE SKIN PER SLIDING SCALE TWICE DAILY folic acid 1 mg tablet 1 mg PO DAILY Qty: 30 2RF mecobalamin (vitamin B12) 1,000 mcg tablet,disintegrating 1,000 mcg sublingual QAM Qty: 30 0RF sevelamer carbonate 2.4 gram powder in packet 7.2 g PO TID atorvastatin 40 mg tablet 40 mg PO BEDTIME ergocalciferol (vitamin D2) 1,250 mcg (50,000 unit) capsule 1,250 mcg PO Q7D clopidogrel 75 mg tablet 75 mg PO DAILY Tasigna 150 mg capsule See Rx Instructions .ROUTE .COMPLEX Rx Instructions: TAKE TWO CAPSULES BY MOUTH EVERY TWELVE HOURS (must be take ON EMPTY stomach; no food AT least TWO hours BEFORE OR ONE hour AFTER DOSE) aspirin 81 mg tablet,delayed release (DR/EC) 81 mg PO DAILY Qty: 30 0RF insulin detemir U-100 100 unit/mL (3 mL) insulin pen 20 unit SUBCUT QPM bumetanide 2 mg tablet 2 mg PO DAILY Qty: 5 0RF Discharge Orders: Discharge ED (Routine); Ordered 11/27/23 Ordered By: Devin Alfonso Referrals: Juancho Loyd MD [Primary Care Provider] - 1-3 days Discharge Diet: Advance as tolerated Discharge Activity: Resume usual activity Patient Instructions: Dyspnea (ED) Coding Level of Care Code ED Adobe Cq Developer for Ivett Koo
[2023-11-27 17:31] VITALS: BP 128/60; PULSE 88; RESP 18; TEMP 36.4; O2SAT 98
[2023-11-27 17:54] VITALS: BP 128/60; PULSE 85; RESP 20; O2SAT 95
[2023-11-27 18:33] VITALS: BP 122/69; PULSE 77; RESP 24; O2SAT 98
[2023-11-27 18:37] LABS: Hematocrit 32.3 % (36-47); Mean Corpuscular Hemoglobin 28.7 pg (27-33); Mean Corpuscular Volume 92.6 fl (85-98); Mean Platelet Volume 10.9 fL (7.4-10.4); Platelet Count 836 10^3/cmm (157-399); Red Blood Count 3.49 10^6/uL (3.85-5.65); Red Cell Distribution Width 17.1 % (12.1-15.1); White Blood Count 19.82 10^3/uL (3.29-11.43)
[2023-11-27 18:54] LABS: INR 1.09 (0.8-1.2)
[2023-11-27 19:03] LABS: Slide Review Slide Review Perform
[2023-11-27 19:08] LABS: Absolute Segmented Neutrophil 16.1 10/cmm (1.6-7.1); Alanine Aminotransferase 13 U/L (0-33); Albumin Level 3.9 g/dL (3.5-5.2); Alkaline Phosphatase 110 U/L (35-105); Anion Gap 11.7 (5-19); Aspartate Amino Transferase 15 U/L (0-32); Band Neutrophils Absolute 0.2 10^3/cmm (0.0-1.2); Basophils Absolute 0.4 10^3/cmm (0.0-0.2); Blood Urea Nitrogen 25 mg/dL (8-23); Calcium 8.6 mg/dL (8.5-10.5); Carbon Dioxide 34 mmol/L (22-29); Chloride 96 mmol/L (98-107); Creatinine Clr Calc Pharmacy 22.3648; Eosinophils 0 %; Globulin 2.7 g/dL (1.3-4.6); Glucose 147 mg/dL (65-115); Lymphocytes 11 %; Lymphocytes Absolute 2.2 10^3/cmm (1.2-3.4); Monocytes Absolute 0.4 10^3/cmm (0.1-0.6); Osmolality Calculated 293 mOsm/kg (285-295); Potassium 3.7 mmol/L (3.5-5.1); Segmented Neutrophils 81 %; Sodium 138 mmol/L (136-145); Total Bilirubin 0.3 mg/dL (0.15-1.2); Total Cells Counted 100 (0-100); Total Protein 6.6 g/dL (6.6-8.7)
[2023-11-27 19:09] LABS: Absolute Neutrophil 16.3 10^3/cmm (1.4-6.5); Giant Platelets Trace; Platelet Estimate Increased (Normal); Poikilocytosis Trace
[2023-11-27 19:30] VITALS: PULSE 77; RESP 24; O2SAT 96
[2023-11-27 19:32] LABS: NT Pro B Type Natriuretic Pept 45308 pg/mL (0-450)
[2023-11-27] MEDS: HYDROmorphone 1 mg/mL INJ 1 mL 0.5 MG IVP (19:38)
[2023-11-27] MEDS: ondansetron 2 mg/ML SDV 2 mL 4 MG IVP (19:38)
--- NOTE | 2023-11-27 19:40 | XRR_ITS ---
PROCEDURE INFORMATION: Exam: XR Lumbosacral Spine Exam date and time: 11/27/2023 8:30 PM Age: 78 years old Clinical indication: Injury or trauma; Fall; Blunt trauma (contusions or hematomas) TECHNIQUE: Imaging protocol: Radiologic exam of the lumbosacral spine. Views: 2 or 3 views. COMPARISON: [place] [id number] 09/10/2023 2:42 PM FINDINGS: Bones/joints: There is degenerative spondylosis of the spine with spur formation and facet osteoarthritis. No acute fracture or subluxation seen. Soft tissues: Unremarkable. Vasculature: Atherosclerotic calcification of the aorta and branches without aneurysm. XR/XR lumbar spine 2-3V* [id number] IMPRESSION: Degenerative spondylosis of the spine. No acute traumatic bony injury seen.
--- NOTE | 2023-11-27 19:40 | XRR_ITS ---
PROCEDURE INFORMATION: Exam: XR Thoracic Spine Exam date and time: 11/27/2023 8:24 PM Age: 78 years old Clinical indication: Injury or trauma; Fall; Blunt trauma (contusions or hematomas) TECHNIQUE: Imaging protocol: Radiologic exam of the thoracic spine. Views: 3 views. COMPARISON: CR (CHEST, ) 11/27/2023 4:58 PM FINDINGS: Bones/joints: There is degenerative spondylosis with spur formation. No loss of vertebral body height or subluxation. Soft tissues: Unremarkable. XR/XR thoracic spine 3V* [id number] IMPRESSION: Degenerative spondylosis. Nonspecific left basilar airspace disease and pleural effusion, detailed in separate radiograph for the chest.
[2023-11-27 20:00] VITALS: BP 115/58; PULSE 73; RESP 22; O2SAT 90
== END 2023-11-27 22:00 | disposition home or self-care (01) ==
PROVIDERS: Emergency Provider Emergency Medicine; PCP Family Medicine
DX: R06.00 Dyspnea, unspecified (principal); I48.91 Unspecified atrial fibrillation; I13.2 Hypertensive heart and chronic kidney disease with heart failure and with stage 5 chronic kidney disease, or end stage renal disease; E11.22 Type 2 diabetes mellitus with diabetic chronic kidney disease; N18.6 End stage renal disease; I50.9 Heart failure, unspecified; Z99.2 Dependence on renal dialysis
CPT/HCPCS: 36415; 71045; 72072; 72100; 80053; 83880; 85007; 85025; 85610; 93005; 96374; 96375; 99285; J1170; J2405

== ENCOUNTER 2023-12-14 09:51 | Oncology outpatient (recurring) (ONCR) | payer MEDICARE, SELFPAY | END 2023-12-24 23:59 | disposition home or self-care (01) | PROVIDERS: PCP Family Medicine; Visit Provider Internal Medicine | DX: C92.10 Chronic myeloid leukemia, BCR/ABL-positive, not having achieved remission (principal); Z53.9 Procedure and treatment not carried out, unspecified reason; I13.2 Hypertensive heart and chronic kidney disease with heart failure and with stage 5 chronic kidney disease, or end stage renal disease; E11.22 Type 2 diabetes mellitus with diabetic chronic kidney disease; N18.6 End stage renal disease; I50.32 Chronic diastolic (congestive) heart failure; Z99.2 Dependence on renal dialysis; Z79.4 Long term (current) use of insulin; I25.10 Atherosclerotic heart disease of native coronary artery without angina pectoris; I35.0 Nonrheumatic aortic (valve) stenosis; Z79.69 Long term (current) use of other immunomodulators and immunosuppressants; Z79.899 Other long term (current) drug therapy | CPT/HCPCS: 99213; 99214 ==

== ENCOUNTER 2024-01-23 09:15 | Oncology outpatient (recurring) (ONCR) | payer MEDICARE, SELFPAY ==
[2023-12-26 11:38] LABS: Hematocrit 34.3 % (36-47); Mean Corpuscular HGB Conc 30.9 g/dL (30-55); Mean Corpuscular Volume 90.7 fl (85-98); Platelet Count 750 10^3/cmm (157-399); Red Blood Count 3.78 10^6/uL (3.85-5.65); Red Cell Distribution Width 18.6 % (12.1-15.1); White Blood Count 21.82 10^3/uL (3.29-11.43)
[2023-12-26 12:07] LABS: Slide Review Slide Review Perform
[2023-12-26 12:10] LABS: Absolute Eosinophils 1.1 10^3/cmm (0.0-0.7); Absolute Segmented Neutrophil 14.8 10/cmm (1.6-7.1); Band Neutrophils Absolute 0.4 10^3/cmm (0.0-1.2); Eosinophils 5 %; Lymphocytes 10 %; Monocytes Absolute 0.9 10^3/cmm (0.1-0.6); Segmented Neutrophils 68 %; Total Cells Counted 100 (0-100)
[2023-12-26 12:11] LABS: Absolute Neutrophil 15.3 10^3/cmm (1.4-6.5); Lymphocytes Absolute 2.2 10^3/cmm (1.2-3.4); Platelet Estimate Increased (Normal); Poikilocytosis 1+
[2024-01-09 11:26] LABS: Basophils # 1.6 10^3/uL (0.0-0.1); Basophils % 11.4 %; Eosinophils # 0.5 10^3/uL (0.0-0.8); Eosinophils % 3.3 %; Hematocrit 35.1 % (36-47); Lymphocytes # 2.8 10^3/uL (0.8-4.8); Lymphocytes % 19.5 %; Mean Corpuscular HGB Conc 31.1 g/dL (30-55); Mean Corpuscular Hemoglobin 28.2 pg (27-33); Mean Corpuscular Volume 90.9 fl (85-98); Mean Platelet Volume 10.8 fL (7.4-10.4); Monocytes # 0.8 10^3/uL (0.2-0.9); Monocytes % 5.5 %; Neutrophils # 7.58 10^3/uL (1.8-7.7); Neutrophils % 53.8 %; Nucleated Red Blood Cells % 0.1 %; Platelet Count 722 10^3/cmm (157-399); Red Blood Count 3.86 10^6/uL (3.85-5.65); Red Cell Distribution Width 17.9 % (12.1-15.1); White Blood Count 14.11 10^3/uL (3.29-11.43)
[2024-01-09 11:57] LABS: Slide Review Slide Review Perform
[2024-01-23 09:30] LABS: Hematocrit 36.9 % (36-47); Mean Corpuscular HGB Conc 31.7 g/dL (30-55); Mean Corpuscular Hemoglobin 28.2 pg (27-33); Mean Corpuscular Volume 88.9 fl (85-98); Mean Platelet Volume 10.5 fL (7.4-10.4); Platelet Count 830 10^3/cmm (157-399); Red Blood Count 4.15 10^6/uL (3.85-5.65); Red Cell Distribution Width 17.8 % (12.1-15.1); White Blood Count 14.43 10^3/uL (3.29-11.43)
[2024-01-23 09:47] LABS: Alanine Aminotransferase 9 U/L (0-33); Albumin Level 3.9 g/dL (3.5-5.2); Alkaline Phosphatase 118 U/L (35-105); Anion Gap 15.6 (5-19); Aspartate Amino Transferase 9 U/L (0-32); Blood Urea Nitrogen 37 mg/dL (8-23); Calcium 9.5 mg/dL (8.5-10.5); Carbon Dioxide 32 mmol/L (22-29); Chloride 94 mmol/L (98-107); Creatinine Clr Calc Pharmacy 15.3123; Globulin 2.8 g/dL (1.3-4.6); Glucose 203 mg/dL (65-115); Lactate Dehydrogenase 186 U/L (135-214); Osmolality Calculated 298 mOsm/kg (285-295); Potassium 4.6 mmol/L (3.5-5.1); Sodium 137 mmol/L (136-145); Total Bilirubin 0.3 mg/dL (0.15-1.2); Total Protein 6.7 g/dL (6.6-8.7)
[2024-01-23 10:37] LABS: Slide Review Slide Review Perform
[2024-01-23 10:38] LABS: Absolute Segmented Neutrophil 8.9 10/cmm (1.6-7.1); Band Neutrophils Absolute 0.3 10^3/cmm (0.0-1.2); Lymphocytes 9 %; Monocytes Absolute 0.1 10^3/cmm (0.1-0.6); Segmented Neutrophils 62 %; Total Cells Counted 100 (0-100)
[2024-01-23 10:39] LABS: Absolute Eosinophils 1.2 10^3/cmm (0.0-0.7); Absolute Neutrophil 9.2 10^3/cmm (1.4-6.5); Eosinophils 8 %; Lymphocytes Absolute 1.3 10^3/cmm (1.2-3.4); Platelet Estimate Normal (Normal)
== END 2024-01-24 23:59 | disposition home or self-care (01) ==
PROVIDERS: PCP Family Medicine; Visit Provider Internal Medicine Medical Oncology
DX: Z53.9 Procedure and treatment not carried out, unspecified reason (principal); C92.10 Chronic myeloid leukemia, BCR/ABL-positive, not having achieved remission
CPT/HCPCS: 36415; 80053; 83615; 85007; 85025; 99213; 99214